=== PATIENT | female | born 1960 | race Caucasian/White ===

== ENCOUNTER 2024-01-09 09:10 | Outpatient (OUT) | payer OTHER, SELFPAY ==
--- NOTE | 2024-01-09 | XR_ITS ---
The [address] [address] Patient Name: LEVI SOFIA MRN: [id number] date: 1960 Sex: F Assigned Patient Location: Current Patient Location: Accession/Order Number: [id number] Exam Date: 01/09/2024 09:15 Report Date: 01/09/2024 10:14 At the request of: JULIO JOHNSON Procedure: XR foot LIONEL min 3V EXAMINATION: XR foot LIONEL min 3V, XR ankle LIONEL min 3V HISTORY: BILATERAL FOOT PAIN COMPARISON: 08/02/2022 FINDINGS: RIGHT FINDINGS: BONES: No acute fracture or dislocation. Severe degenerative changes with pes planus. Moderate enthesopathic spurring of the calcaneus. Marked bony remodeling of the midfoot and hindfoot. SOFT TISSUES: Negative. No visible soft tissue swelling. OTHER: Negative. LEFT FINDINGS: BONES: No acute fracture or dislocation. Stable fusion hardware with 2 screws across the posterior subtalar joint and a strut in the medial foot. Lucency in the distal tibia likely representing bone graft harvesting. Marked degenerative changes with bony remodeling. Pes planus. SOFT TISSUES: Negative. No visible soft tissue swelling. OTHER: Negative. XR/XR foot LIONEL min 3V IMPRESSION: RIGHT CONCLUSION: Stable postsurgical and degenerative changes LEFT CONCLUSION: Stable postsurgical and degenerative changes Electronically authenticated by: NIKHIL GORE Date: 01/09/2024 10:14
--- NOTE | 2024-01-09 | XR_ITS ---
[address] [address] Patient Name: LEVI SOFIA MRN: [id number] date: 1960 Sex: F Assigned Patient Location: Current Patient Location: Accession/Order Number: [id number] Exam Date: 01/09/2024 09:15 Report Date: 01/09/2024 10:14 At the request of: JULIO JOHNSON Procedure: XR ankle LIONEL min 3V EXAMINATION: XR foot LIONEL min 3V, XR ankle LIONEL min 3V HISTORY: BILATERAL FOOT PAIN COMPARISON: 08/02/2022 FINDINGS: RIGHT FINDINGS: BONES: No acute fracture or dislocation. Severe degenerative changes with pes planus. Moderate enthesopathic spurring of the calcaneus. Marked bony remodeling of the midfoot and hindfoot. SOFT TISSUES: Negative. No visible soft tissue swelling. OTHER: Negative. LEFT FINDINGS: BONES: No acute fracture or dislocation. Stable fusion hardware with 2 screws across the posterior subtalar joint and a strut in the medial foot. Lucency in the distal tibia likely representing bone graft harvesting. Marked degenerative changes with bony remodeling. Pes planus. SOFT TISSUES: Negative. No visible soft tissue swelling. OTHER: Negative. XR/XR ankle LIONEL min 3V IMPRESSION: RIGHT CONCLUSION: Stable postsurgical and degenerative changes LEFT CONCLUSION: Stable postsurgical and degenerative changes Electronically authenticated by: NIKHIL GORE Date: 01/09/2024 10:14
== END 2024-01-09 09:11 | disposition home or self-care (01) ==
LOC: EC 09:11
PROVIDERS: Visit Provider Podiatrist Foot & Ankle Surgery
DX: M25.571 Pain in right ankle and joints of right foot (principal); M25.572 Pain in left ankle and joints of left foot; M79.671 Pain in right foot; M79.672 Pain in left foot; Z98.890 Other specified postprocedural states
CPT/HCPCS: 73610; 73630

== ENCOUNTER 2024-04-09 12:57 | Outpatient (OUT) | payer OTHER, SELFPAY ==
--- NOTE | 2024-04-09 13:12 | CT_ITS ---
The [address] [address] Patient Name: LEVI SOFIA MRN: [id number] date: 1960 Sex: F Assigned Patient Location: CT Current Patient Location: Accession/Order Number: [id number] Exam Date: 04/09/2024 15:20 Report Date: 04/10/2024 16:20 At the request of: JULIO JOHNSON Procedure: CT ankle RT wo con EXAMINATION: CT ankle RT wo con HISTORY: Right Charcot Neuropathy COMPARISON: No relevant comparison available. TECHNIQUE: Multi-planar CT images were created without and/or with IV contrast according to examination type. Dose reduction techniques were achieved by using automated exposure control and/or adjustment of mA and/or kV according to patient size and/or use of iterative reconstruction technique. FINDINGS: BONES: Complete loss of joint space of the anterior compartment of the knee with [id number] articulation between the patella and femur with marked cortical irregularity and innumerable subchondral cysts. Moderate joint space narrowing of the medial compartment of the knee. Large periarticular degenerative osteophytes involving all 3 compartments. Complete loss of plantar arch. Degenerative changes the midfoot with innumerable subchondral cysts and marked joint space narrowing throughout. Mild narrowing of the ankle joint space with prominent subchondral cysts within posterior aspect of the tibial plafond, and degenerative osteophytes along the articular margins. SOFT TISSUES: Soft tissue swelling surrounding the foot and ankle. EFFUSION: None visible. OTHER: Negative. CT/CT ankle RT wo con IMPRESSION: 1. No appreciable acute bone abnormality. 2. Marked degenerative joint disease of the knee. 3. 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 Electronically authenticated by: JODI PAPPAS Date: 04/10/2024 16:20
== END 2024-04-09 12:58 | disposition home or self-care (01) ==
LOC: CT 12:58
PROVIDERS: Visit Provider Podiatrist Foot & Ankle Surgery
DX: M14.671 Charcot's joint, right ankle and foot (principal)
CPT/HCPCS: 73700

== ENCOUNTER 2024-05-22 11:08 | Outpatient (OUT) | payer OTHER, SELFPAY ==
--- NOTE | 2024-05-22 11:58 | P.GSHP_ITS ---
History of Present Illness History of Present Illness Chief complaint: charcot joint right ankle and foot Narrative: Patient presents for preadmission testing. The patient reports a long history of bilateral foot and ankle pain. She underwent left foot and ankle reconstruction in 2019 and states she is happy with her results. The patient states she does wear a brace on her right ankle but it only provides minimal support. She does take diclofenac to help with her discomfort. The patient states she is unable to stand for long periods of time and she does use a walker for ambulation. Review of Systems ROS Narrative REVIEW OF SYSTEMS: Negative except as stated in HPI, ten or more systems reviewed. Constitutional: No fever, chills, weakness ENT: No sore throat or epistaxis Cardiovascular: No chest pain or palpitations; admits to activity intolerance and pedal edema Respiratory: Chronic shortness of breath, cough, and wheezing Musculoskeletal: Chronic joint pain and swelling Gastrointestinal: No abdominal pain, constipation, diarrhea, or vomiting Genitourinary: No dysuria or hematuria Neurological: No numbness, tingling, weakness, or headache Psychiatric: No mood changes [facility] Medical History (Updated 05/22/24 @ 12:03 by Cynthia Byrd NP) Valgus deformity, not elsewhere classified, right ankle ?M21.071 - Valgus deformity, not elsewhere classified, right ankle (ICD-10) Primary osteoarthritis, right ankle and foot ?M19.071 - Primary osteoarthritis, right ankle and foot (ICD-10) Charcot's joint, left ankle and foot ?M14.672 - Charcot's joint, left ankle and foot (ICD-10) Non-pressure chronic ulcer of other part of right foot limited to breakdown of skin ?L97.511 - Non-pressure chronic ulcer of other part of right foot limited to breakdown of skin (ICD-10) Foot and ankle pain ?M79.673 - Pain in unspecified foot (ICD-10) ?M25.579 - Pain in unspecified ankle and joints of unspecified foot (ICD-10) Charcot's joint, right ankle and foot ?M14.671 - Charcot's joint, right ankle and foot (ICD-10) Neck pain ?M54.2 - Cervicalgia (ICD-10) Back pain ?M54.9 - Dorsalgia, unspecified (ICD-10) Arthritis ?M19.90 - Unspecified osteoarthritis, unspecified site (ICD-10) Anemia ?D64.9 - Anemia, unspecified (ICD-10) Depression ?F32.A - Depression, unspecified (ICD-10) COVID-19 ?U07.1 - COVID-19 (ICD-10) Pneumonia ?J18.9 - Pneumonia, unspecified organism (ICD-10) Bronchitis ?J40 - Bronchitis, not specified as acute or chronic (ICD-10) Asthma ?J45.909 - Unspecified asthma, uncomplicated (ICD-10) Vertigo ?R42 - Dizziness and giddiness (ICD-10) Migraine ?G43.909 - Migraine, unspecified, not intractable, without status migrainosus (ICD-10) Seasonal allergies ?J30.2 - Other seasonal allergic rhinitis (ICD-10) GERD (gastroesophageal reflux disease) ?K21.9 - Gastro-esophageal reflux disease without esophagitis (ICD-10) Extremity edema ?R60.0 - Localized edema (ICD-10) High cholesterol ?E78.00 - Pure hypercholesterolemia, unspecified (ICD-10) Hypertension ?I10 - Essential (primary) hypertension (ICD-10) Hypothyroidism ?E03.9 - Hypothyroidism, unspecified (ICD-10) Prediabetes ?R73.03 - Prediabetes (ICD-10) Surgical History (Updated 05/22/24 @ 11:38 by Cynthia Byrd NP) H/O elbow surgery ?Z98.890 - Other specified postprocedural states (ICD-10) History of hysterectomy ?Z90.710 - Acquired absence of both cervix and uterus (ICD-10) History of colonoscopy ?Z98.890 - Other specified postprocedural states (ICD-10) History of tonsillectomy ?Z90.89 - Acquired absence of other organs (ICD-10) History of arthroplasty of knee ?Z96.659 - Presence of unspecified artificial knee joint (ICD-10) S/P cataract extraction and insertion of intraocular lens ?Z98.49 - Cataract extraction status, unspecified eye (ICD-10) ?Z96.1 - Presence of intraocular lens (ICD-10) History of ankle surgery ?Z98.890 - Other specified postprocedural states (ICD-10) Family History (Updated 05/22/24 @ 11:38 by Cynthia Byrd NP) Other Family history of colon cancer Family history of diabetes mellitus Family history of leukemia Family history of myocardial infarction Family history of stroke Social History (Updated 05/22/24 @ 11:31 by Cynthia Byrd NP) Within the past year, how often did you have a drink containing alcohol: never Score interpretation: A score less than 3 is consistent with normal alcohol consumption. Smoking status: Never smoker Non-prescribed substance use: denies use Previous occupational history: Retired Highest level of school completed/degree received: high school graduate Meds Home Medications and Allergies Home Medications ?Medication ?Instructions ?Recorded ?Confirmed ?Type albuterol sulfate 90 mcg/actuation 2 inh inhalation Q4H PRN shortness 05/22/24 05/22/24 History aerosol inhaler of breath or wheezing aspirin 81 mg capsule 81 mg PO DAILY 05/22/24 05/22/24 History atorvastatin 20 mg tablet 20 mg PO DAILY 05/22/24 05/22/24 History citalopram 20 mg tablet 20 mg PO DAILY 05/22/24 05/22/24 History diclofenac sodium 75 mg 75 mg PO Q12H 05/22/24 05/22/24 History tablet,delayed release duloxetine 30 mg capsule,delayed 30 mg PO DAILY 05/22/24 05/22/24 History release fexofenadine 180 mg tablet 180 mg PO DAILY 05/22/24 05/22/24 History ([facility]) fluticasone furoate 100 1 inh inhalation Q24H 05/22/24 05/22/24 History mcg-vilanterol 25 mcg/dose inhalation powder (Breo Ellipta) fluticasone propionate 50 1 spray intranasal DAILY PRN 05/22/24 05/22/24 History mcg/actuation nasal allergy symptoms spray,suspension (24 Hour Allergy Relief) hydrochlorothiazide 12.5 mg capsule 12.5 mg PO DAILY 05/22/24 05/22/24 History levothyroxine 137 mcg tablet 137 mcg PO QPM 05/22/24 05/22/24 History losartan 50 mg tablet 50 mg PO BID 05/22/24 05/22/24 History montelukast 10 mg tablet 10 mg PO QPM 05/22/24 05/22/24 History omeprazole 20 mg capsule,delayed 20 mg PO DAILY 05/22/24 05/22/24 History release oxybutynin chloride 15 mg 15 mg PO DAILY 05/22/24 05/22/24 History tablet,extended release 24 hr propranolol 80 mg capsule,24 80 mg PO BID 05/22/24 05/22/24 History hr,extended release sumatriptan succinate 100 mg tablet 100 mg PO Q2H PRN migraine headache 05/22/24 05/22/24 History Allergies Allergy/AdvReac Type Severity Reaction Status Date / Time chlorzoxazone Allergy Unknown Verified 05/22/24 11:23 [From Danielle Robles DSC] moxifloxacin Allergy Hives Verified 05/22/24 11:23 Penicillins Allergy Hives Verified 05/22/24 11:23 Exam Narrative Exam Narrative: Constitutional: Awake, alert, comfortable, well-appearing, nontoxic, interactive, vital signs as charted Head: Normocephalic, atraumatic Neck: Supple, normal appearance, normal range of motion, no meningeal signs, no lymphadenopathy Respiratory: No respiratory distress, breath sounds clear Cardiovascular: Regular rate and rhythm, strong and regular heart tones Musculoskeletal: Patient ambulates with an antalgic gait utilizing a walker, right knee brace in place, right ankle brace in place, 2+ pedal edema bilaterally Skin: No rashes or induration, no lesions, only visible skin inspected Neuro: No neurological deficits, normal sensation Psychiatric: Oriented ?3, normal affect Assessment and Plan Assessment and Plan (1) Primary osteoarthritis, right ankle and foot: (2) Non-pressure chronic ulcer of other part of right foot limited to breakdown of skin: (3) Foot and ankle pain: (4) Charcot's joint, right ankle and foot: (5) Valgus deformity, not elsewhere classified, right ankle: Plan Right foot reconstruction with medial column and subtalar joint fusion with soft tissue balancing and bone graft as needed, possible hallux arthroplasty scheduled with Dr. Singh June 09, 2024.
[2024-05-22 12:07] LABS: Basophils Absolute Auto 0.1 10^3/uL (0.0-0.1); Basophils Percent Auto 0.9 % (0.2-2.0); Eosinophils Absolute Auto 0.2 10^3/uL (0.0-0.7); Eosinophils Percent Auto 2.8 % (0.9-7.0); Hematocrit 38.6 % (36.0-48.0); Hemoglobin 12.9 g/dL (12.0-16.0); Immature Granulocytes Abs Auto 0.02 10^3/uL (0.00-0.03); Immature Granulocytes Pct Auto 0.3 % (0.0-0.5); Lymphocytes Absolute Auto 1.6 10^3/uL (1.2-3.8); Mean Corpuscular HGB Conc 33.4 g/dL (29.9-35.2); Mean Corpuscular Hemoglobin 31.2 pg (26.7-34.0); Mean Corpuscular Volume 93.2 fL (81.0-99.0); Mean Platelet Volume 10.2 fL (9.5-13.5); Monocytes Absolute Auto 0.4 10^3/uL (0.3-0.8); Monocytes Percent Auto 6.4 % (1.7-12.0); Neutrophils Absolute Auto 4.2 10^3/uL (1.4-6.5); Neutrophils Percent Auto 65.6 % (43.0-75.0); Platelet Count 191 10^3/uL (150-450); Red Blood Count 4.14 10^6/uL (4.20-5.40); Red Cell Distribution Width 14.1 % (11.0-15.0); White Blood Count 6.5 10^3/uL (4.0-11.0)
[2024-05-22 12:14] LABS: Anion Gap 15.3; BUN Creatinine Ratio 27.7; Calcium 9.6 mg/dL (8.5-10.1); Carbon Dioxide 24.9 mmol/L (21.0-32.0); Chloride 103 mmol/L (98-107); Estimated GFR (African America 50 (>=60); Estimated GFR (Non-African Ame 41 (>=60); Glucose 128 mg/dL (74-106); Potassium 4.2 mmol/L (3.5-5.1); Sodium 139 mmol/L (136-145)
== END 2024-05-22 11:09 | disposition home or self-care (01) ==
PROVIDERS: Visit Provider Podiatrist Foot & Ankle Surgery
DX: Z01.812 Encounter for preprocedural laboratory examination (principal); Z01.818 Encounter for other preprocedural examination; M14.671 Charcot's joint, right ankle and foot
CPT/HCPCS: 36415; 80048; 85025; G0463

== ENCOUNTER 2024-08-13 12:34 | Outpatient (OUT) | payer OTHER, SELFPAY ==
--- OUTSIDE RECORDS SUMMARY | 2024-08-13 12:55 | XMS_ITS | CCD ---
Author Organization [facility] Care Team Providers Care Guest Attendant Name Role Phone Mara Beverly Primary Care Provider [phone] SYSTEM, PROVIDER NOT IN Attending Unavaila ble SYSTEM, PROVIDER NOT IN Referring Unavaila ble PANDA BEVERLYER R Primary Care Unavailable SYSTEM, PROVIDER NOT IN Attending Unavaila ble SYSTEM, PROVIDER NOT IN Referring Unavaila ble SIRIA CHRISTOPHER R Primary Care Unavailable Brown Christopher R Primary Care Provider [phone] Mara Beverly Primary Care Provider Senait Ochoa Unavailable EXTENCARLOS Attending Unavailable BROWN, CHRISTOPHER R Primary Care Unavailable EXTEN, CARLOS GERBER Attending Unavailable BROWN, CHRISTOPHER R Primary Care Unavailable PRYKHOJAVIER HAWTHORNE Attending U navailable BROWN, CHRISTOPHER R Primary Care Unavailable EXTEN, CARLOS GERBER Attending Unavailable BROWN, CHRISTOPHER R Primary Care Unavailable BROWN, CHRISTOPHER R Admitting Unavailable CYLINDER PRESS OPERATOR APPRENTICEJASPREET CAMPBELL Attending Unavailab le BROWN, CHRISTOPHER R Referring Unavailable BROWN, CHRISTOPHER R Primary Care Unavailable CYLINDER PRESS OPERATOR APPRENTICEJASPREET CAMPBELL Attending Unavailab le BROWN, CHRISTOPHER R Primary Care Unavailable BROWN, CHRISTOPHER R Referring Unavailable PRYKHOJAVIER HAWTHORNE Attending U navailable BROWN, CHRISTOPHER R Primary Care Unavailable BROWN, CHRISTOPHER R Referring Unavailable EXTENCARLOS Attending Unavailable BROWN, CHRISTOPHER R Primary Care Unavailable EXTENCARLOS Admitting Unavailable SENAIT OCHOA Attending Unavailable EXTENCARLOS Referring Unavailable BROWN, CHRISTOPHER R Primary Care Unavailable EXTENCARLOS Attending Unavailable BROWN, CHRISTOPHER R Primary Care Unavailable EXTEN, CARLOS GERBER Attending Unavailable EXTEN, CARLOS GERBER Referring Unavailable BROWN, CHRISTOPHER R Primary Care Unavailable EXTEN, CARLOS GERBER Attending Unavailable EXTEN, CARLOS ZABRINA Referring Unavailable BROWN, CHRISTOPHER R Primary Care Unavailable EXTEN, CARLOS GERBER Attending Unavailable EXTEN, CARLOS ZABRINA Referring Unavailable BROWN, CHRISTOPHER R Primary Care Unavailable EXTEN, CARLOS GERBER Attending Unavailable EXTEN, CARLOSARABELLA FOREMANE Referring Unavailable BROWN, CHRISTOPHER R Primary Care Unavailable EXTEN, CARLOS GERBER Attending Unavailable EXTEN, CARLOS ZABRINA Referring Unavailable BROWN, CHRISTOPHER R Primary Care Unavailable VISENAIT CALDERON Admitting Unavailable VISTSENAIT HENNING Attending Unavailable BROWN, CHRISTOPHER R Primary Care Unavailable Senait Ochoa Unavailable [phone] Mara BEVERLY Primary Care Physician Litzy Mack Unavailable Unavailable Lorna Almanzar Unavailable Unavailable JULIO JOHNSON Admitting Unavailable JULIO JOHNSON Attending Unavailable Jodi Pappas Consulting Unavailable JULIO JOHNSON Consulting Unavailable Mara BEVERLY Primary Care Physician [phone] Mara BEVERLY Admitting Unavailable Mara BEVERLY Attending Unavailable Yuniel Ocasio Attending Unavailable EMELYN POLK Attending Unavailable Mara BEVERLY Attending Unavailable Mara BEVERLY Admitting Unavailable DAVE, Zahra Consulting Unavailable Melva Grimaldo Admitting Unavailable Melva Grimaldo Attending Unavailable Melva Grimaldo Referring Unavailable DAVE, AGPCNP Zahra Consulting Unava ilable DAVE, Zahra Consulting Unavailable DAVE, Zahra Consulting Unavailable DAVE, Zahra Consulting Unavailable DAVE, Zahra Consulting Unavailable DAVE, Zahra Consulting Unavailable DAVE, Zahra Consulting Unavailable DAVE, Zahra Consulting Unavailable DAVE, Zahra Consulting Unavailable DO Yuniel Ocasio Attending Unavailable Mara BEVERLY Attending Unavailable Mara BEVERLY Referring Unavailable Farzad FRANCE Attending Unavailable Mara BEVERLY Attending Unavailable SIRIA, Christopher Attending Unavailable BROWN, Christopher Attending Unavailable BROWN, Christopher Attending Unavailable BROWN, Christopher Attending Unavailable BROWN, Christopher Attending Unavailable BROWN Christopher Admitting Unavailable WILL TURNERELLE Attending Unavailable GRIMALDO, MELVA T Referring Unavailable MEDVES, DOLORES Calixto Attending Unavailable GRIMALDO, MELVA T Referring Unavailable TURNER, BUBBA Attending Unavailable GRIMALDO, MELVA T Referring Unavailable GRIMALDO, MELVA T Referring Unavailable GRIMALDO, MELVA T Attending Unavailable MEDVES, DOLORES [place] Attending Unavailable GRIMALDO, MELVA T Referring Unavailable TURNER, BUBBA Attending Unavailable GRIMALDO, MELVA T Referring Unavailable DEPOY, DONG Attending Unavailable GRIMALDO, MEVLA T Referring Unavailable TURNER, BUBBA Attending Unavailable GRIMALDO, MELVA T Referring Unavailable DEPOY, DONG Attending Unavailable GRIMALDO, MELVA T Referring Unavailable GRIMALDO, MELVA T Referring Unavailable GRIMALDO, MELVA T Attending Unavailable GRIMALDO, MELVA T Referring Unavailable GRIMALDO, MELVA T Attending Unavailable GRIMALDO, MELVA T Referring Unavailable MEDVES, DOLORES [place] Attending Unavailable GRIMALDO, MELVA T Referring Unavailable DEPOY, DONG Attending Unavailable GRIMALDO, MELVA T Referring Unavailable TURNER, BUBBA Attending Unavailable GRIMALDO, MELVA T Referring Unavailable TURNER, BUBBA Attending Unavailable GRIMALDO, MELVA T Referring Unavailable GRIMALDO, MELVA T Referring Unavailable HAILY SHEPARD Attending Unavailable Siria ARMENTA, Mara Primary Care Provider Grimaldo, Melva T Referring Unavailable Grimaldo, Melva T Attending Unavailable SIRIA, Mara Referring Unavailable SIRIA, Mara Attending Unavailable SIRIA, Mara Referring Unavailable SIRIA, Mara Attending Unavailable SIRIA, Mara Admitting Unavailable Allergies Allergy Classification Reported Allergen(s) Allergy Type Date of Onset Reaction(s) Facility (20 sources) Amoxicillin / Clavulanate; Translations: [AMOXICILLIN-POT CLAVULANATE] Drug Allergy 3 [facility] (20 sources) Chlorzoxazone; Translations: [CHLORZOXAZONE] Drug Allergy 9 [facility] (20 sources) moxifloxacin; Translations: [MOXIFLOXACIN] Drug Allergy 9 Unknown [facility] (20 sources) Penicillins; Translations: [PENICILLINS] Propensity to adverse reactions to drug 7 [facility] (20 sources) Penicillin; Translations: [penicillin] Drug Allergy [facility] Comment on above: Tolerated ceftriaxon e during 12/2017 admission (20 sources) Penicillin V; Translations: [penicillin V potassium] Drug Allergy Unknown (qualifier value) [facility] (5 sources) Amoxicillin / Clavulanate; Translations: [Augmentin] Drug Allergy [facility] (1 source) moxifloxacin Drug Allergy [facility] (5 sources) Penicillin; Translations: [penicillin] Drug Allergy [facility] (1 source) Parafon Forte Drug allergy (disorder) [facility] (4 sources) moxifloxacin; Translations: [Avelox] Drug Allergy [facility] (4 sources) Antibiotic; Translations: [Antibiotic] Propensity to adverse reactions (disorder) [facility] (4 sources) Parafon Forte DSC; Translations: [Parafon Forte DSC] Propensity to adverse reactions (disorder) [facility] (2 sources) Chlorzoxazone Drug Allergy 9 Unknown [facility] Medications Current Medications Medication Drug Class(es) Dates Sig (Normalized) Sig (Original) [id number] 200 actuat albuterol 0.09 mg/actuat metered dose inhaler (20 sources) beta2-Adrenergic Agonist Start: 03-08-2024 take 2 puff(s) by inhalation four times daily as needed albuterol HFA 90 mcg/act inhaler INHALE 2 PUFFS FOUR TIMES DAILY NEEDED 03/08/2024 Active Start: 09-28-2022 take 2.5 mg by inhal ation every four hours for wheezing albuterol 0.083% Inh Mamie 3 mL 2.5 mg, 3 mL, Inhalation, q4hr for wheezing, 25 EA, Refill(s) 0, dx. J45.41, [id number], 179, cm, 09/27/22 13:30:00 EST, Height/Length Dosing, 130, kg, 09/27/22 13:30:00 EST, Weight Dosing Start Date: 09/28/22 Status: Ordered Start: 08-09-2022 take 1 dose by inhal ation every six hours ProAir HFA 90 mcg/inh inhalation aerosol 2 puff(s), Inhalation, q6hr for wheezing, 1 EA, Refill(s) 1, [facility], 179, cm, 06/28/22 9:21:00 EDT, Height/Length Dosing, 129, kg, 06/28/22 9:21:00 EDT, Weight Dosing Start Date: 08/09/22 Status: Ordered Start: 10-21-2021 take 30 doses by inh alation every four hours as needed albuterol 0.083% Inh Mamie 3 mL 0.083% - 3mL dosing units, Inhalation, q4hr as needed for wheezing, 30 EA, Refill(s) 0 Start Date: 10/21/21 Status: Ordered Start: 10-21-2021 take 30 doses by inh alation every four hours as needed albuterol 0.083% Inh Mamie 3 mL 0.083% - 3mL dosing units, Inhalation, q4hr as needed for wheezing, 30 EA, Refill(s) 0 Start Date: 10/21/21 Status: Ordered Start: 07-11-2021 take 2 puff(s) by in halation every six hours for wheezing ProAir HFA 90 mcg/inh inhalation aerosol 2 puff(s), Inhalation, q6hr for wheezing, 1 EA, Refill(s) 1, [facility], 178, cm, 07/11/21 10:05:00 EDT, Height/Length Dosing, 127, kg, 07/11/21 10:05:00 EDT, Weight Dosing Start Date: 07/11/21 Status: Ordered Start: 08-05-2019 take 2.5 mg by inhal ation every six hours for wheezing albuterol 0.083% Inh Mamie 3 mL 2.5 mg, 3 mL, Inhalation, q6hr for wheezing, 25 EA, Refill(s) 0, [facility] Start Date: 08/05/19 Status: Ordered Start: 08-05-2019 take 2.5 mg by inhal ation every six hours for wheezing albuterol 0.083% Inh Mamie 3 mL 2.5 mg, 3 mL, Inhalation, q6hr for wheezing, 25 EA, Refill(s) 0, [facility] Start Date: 08/05/19 Status: Ordered Albuterol (Eqv-ProAir HFA) 90 mcg/inh inhalation aerosol (8 sources) Start: 2024 take 2 puff(s) by inhalation every six hours Albuterol (Eqv-ProAir HFA) 90 mcg/inh inhalation aerosol 2 puff(s), Inhalation, q6hr, 8 gm, Refill(s) 5, other reason (Rx) Start Date: 03/09/24 Status: Ordered albuterol 0.833 mg/ml / ipratropium bromide 0.167 mg/ml inhalation solution (10 sources) Anticholinergi c, beta2-Adrenerg ic Agonist Start: 03-10-2024 take 3 mL by inhalation four times daily DuoNeb 2.5 mg-0.5 mg/3 mL Soln-Inh 3 mL, Inhalation, QID, 60 EA, Refill(s) 2, 177, cm, 03/10/24 18:16:00 EDT, Height/Length Dosing, 128.6, kg, 03/10/24 18:16:00 EDT, Weight Dosing Start Date: 03/10/24 Status: Ordered ipratropium-albu terol (Duo-Neb) 0.5-2.5 mg/3 mL nebulizer solution Active aspirin 325 mg oral tablet (20 sources) Platelet Aggregation Inhibitor, Nonsteroidal Anti-inflammatory Drug Start: 05-16-2023 End: 06-16-2023 take 1 tablet by mouth once daily aspirin 325 mg Tab 325 mg = 1 tab(s), Oral, Daily, X 30 day(s), # 30 tab(s), Refills(s) 0, Pharmacy: [id number], 177, cm, 05/16/23 13:32:00 EDT, Height/Length Dosing, 127, kg, 05/16/23 13:31:00 EDT, Weight Dosing Start Date: 05/17/23 Stop Date: 06/16/23 Status: Ordered Start: 01-15-2018 take 1 tablet by mouth once da arabella aspirin 81 mg Oral EC Tab 81 mg = 1 tab(s), Oral, Daily, Blood Thinner Start Date: 01/15/18 Status: Ordered Start: 01-15-2018 take 1 tablet by mouth once da arabella aspirin 81 mg Oral EC Tab 81 mg = 1 tab(s), Oral, Daily, Blood Thinner Start Date: 01/15/18 Status: Ordered atorvastatin 20 mg oral tablet (20 sources) HMG-CoA Reductase Inhibitor Start: 04-07-2024 take 1 tablet by mouth once daily at bedtime atorvastatin 20 mg Tab 20 mg = 1 tab(s), Oral, Once a day (at bedtime), # 90 tab(s), Refills(s) 1, Pharmacy: [id number], 177, cm, 03/24/24 22:52:00 EDT, Height/Length Dosing, 128, kg, 03/24/24 22:52:00 EDT, Weight Dosing Start Date: 04/07/24 Status: Ordered Start: 11-15-2023 take 1 tablet by brendan th once daily at bedtime atorvastatin 20 mg Tab 20 mg = 1 tab(s), Oral, Once a day (at bedtime), # 90 tab(s), Refills(s) 1, Pharmacy: [facility], 178, cm, 10/17/23 14:51:00 EST, Height/Length Dosing, 127, kg, 10/17/23 14:51:00 EST, Weight Dosing Start Date: 11/15/23 Status: Ordered Start: 04-27-2023 take 1 tablet by brendan once daily at bedtime atorvastatin 20 mg Tab 20 mg = 1 tab(s), Oral, Once a day (at bedtime), # 90 tab(s), Refills(s) 1, Pharmacy: [facility], 177, cm, 05/16/23 13:32:00 EDT, Height/Length Dosing, 127, kg, 05/16/23 13:31:00 EDT, Weight Dosing Start Date: 08/21/23 Status: Ordered Start: 01-12-2023 take 1 tablet by brendan th once daily at bedtime atorvastatin 20 mg Tab 20 mg = 1 tab(s), Oral, Once a day (at bedtime), # 90 tab(s), Refills(s) 1, Pharmacy: [facility], 179, cm, 09/27/22 13:30:00 EST, Height/Length Dosing, 130, kg, 09/27/22 13:30:00 EST, Weight Dosing Start Date: 01/12/23 Status: Ordered Start: 08-03-2022 take 1 tablet by brendan th once daily at bedtime atorvastatin 20 mg Tab 20 mg = 1 tab(s), Oral, Once a day (at bedtime), # 90 tab(s), Refills(s) 1, Pharmacy: [facility], 179, cm, 06/28/22 9:21:00 EDT, Height/Length Dosing, 129, kg, 06/28/22 9:21:00 EDT, Weight Dosing Start Date: 08/03/22 Status: Ordered Start: 01-25-2022 take 1 tablet by brendan th once daily at bedtime atorvastatin 20 mg Tab 20 mg = 1 tab(s), Oral, Once a day (at bedtime), # 90 tab(s), Refills(s) 1, Pharmacy: [id number], 178, cm, 12/22/21 10:58:00 EST, Height/Length Dosing, 127.4, kg, 12/22/21 10:58:00 EST, Weight Dosing Start Date: 01/25/22 Status: Ordered take 1 tablet by brendan once daily atorvastatin (LIPITOR) 10 MG tablet Take 10 mg by mouth daily . 0 Active azithromycin 250 mg Tab 5-day Dose Pack (Z-Judah) (1 source) Start: 03-10-2024 End: 03-15-2024 azithromycin 250 mg Tab 5-day Dose Pack (Z-Judah) 250 mg = 1 tab(s), Oral, As Directed, as directed on package labeling, X 5 day(s), # 6 tab(s), Refills(s) 0, Pharmacy: [id number], 177, cm, 03/10/24 18:16:00 EDT, Height/Length Dosing, 128.6, kg, 03/10/24 18:16:00 EDT, Weight Dosing Start Date: 03/10/24 Stop Date: 03/15/24 Status: Ordered benzonatate 200 mg oral capsule (4 sources) Non-narcotic Antitussive Start: 03-21-2024 End: 03-31-2024 take 1 capsule by mouth three times daily benzonatate (Tessalon) 200 MG capsule TAKE 1 CAPSULE BY MOUTH THREE TIMES DAILY for 10 days 03/21/2024 Active bisoprolol fumarate 5 mg / hydroCHLOROthiazide 6.25 mg oral tablet (20 sources) Thiazide Diuretic, beta-Adrenergic Miki Start: 01-25-2022 take 1 tablet by mouth once daily bisoprolol-hydroch lorothiazide 5 mg-6.25 mg Tab 1 tab(s), Oral, Daily, 90 tab(s), Refill(s) 1, [id number], 178, cm, 12/22/21 10:58:00 EST, Height/Length Dosing, 127.4, kg, 12/22/21 10:58:00 EST, Weight Dosing Start Date: 01/25/22 Status: Ordered take 1 tablet by brendan once daily bisoprolol-hydrochlorothiazide (ZIAC) 5- 6.25 mg per tablet Take 1 tablet by mouth daily . 0 Active brompheniramine maleate 0.4 mg/ml / dextromethorphan hydrobromide 2 mg/ml / pseudoephedrine hydrochloride 6 mg/ml oral solution (6 sources) alpha-Adrenergic Agonist, Uncompetitive L-ainbyx-Q-aspartate Receptor Antagonist, Sigma-1 Agonist Start: 03-25-2024 take 5 mL by mouth four times daily for cough and congestion Bromfed DM oral syrup 5 mL, Oral, QID for cough and congestion, 200 mL, Refill(s) 0, [facility], 177, cm, 03/24/24 22:52:00 EDT, Height/Length Dosing, 128, kg, 03/24/24 22:52:00 EDT, Weight Dosing Start Date: 03/25/24 Status: Ordered 60 actuat budesonide 0.16 mg/actuat / formoterol fumarate 0.0045 mg/actuat metered dose inhaler (5 sources) Corticosteroid, beta2-Adrenergic Agonist Start: 07-09-2020 Symbicort 160-4.5 mcg/actuation inhaler as needed . 0 07/09/2020 Active take 2 puff(s) by in halation in the morning Symbicort 160-4.5 MCG/ACT inhaler Inhale 2 puffs in the morning and 2 puffs before bedtime. Active cefdinir 300 mg oral capsule (1 source) Cephalosporin Antibacterial Start: 03-24-2024 End: 04-03-2024 take 1 capsule by mouth twice daily cefdinir 300 mg Cap 300 mg = 1 cap(s), Oral, BID, X 10 day(s), # 20 cap(s), Refills(s) 0, Pharmacy: [facility], 177, cm, 03/21/24 14:44:00 EDT, Height/Length Dosing, 128.6, kg, 03/21/24 14:47:00 EDT, Weight Dosing Start Date: 03/24/24 Stop Date: 04/03/24 Status: Ordered cetirizine hydrochloride 5 mg oral tablet (20 sources) Histamine-1 Receptor Antagonist take 1 tablet by mouth once daily cetirizine (ZYRTEC) 5 MG tablet Take 5 mg by mouth daily . 0 Active citalopram 20 mg oral tablet (20 sources) Serotonin Reuptake Inhibitor Start: 05-01-2024 take 1 tablet by mouth once daily citalopram 20 mg Tab 20 mg = 1 tab(s), Oral, Daily, # 90 tab(s), Refills(s) 3, Pharmacy: [facility], 177, cm, 04/08/24 13:20:00 EDT, Height/Length Dosing, 125.7, kg, 04/08/24 13:18:00 EDT, Weight Dosing Start Date: 05/01/24 Status: Ordered Start: 11-23-2023 take 1 tablet by brendan once daily citalopram 20 mg Tab 20 mg = 1 tab(s), Oral, Daily, # 90 tab(s), Refills(s) 1, Pharmacy: [facility], 178, cm, 10/17/23 14:51:00 EST, Height/Length Dosing, 127, kg, 10/17/23 14:51:00 EST, Weight Dosing Start Date: 11/23/23 Status: Ordered Start: 04-23-2023 take 1 tablet by brendan once daily citalopram 20 mg Tab 20 mg = 1 tab(s), Oral, Daily, # 90 tab(s), Refills(s) 1, Pharmacy: [facility], 177, cm, 03/23/23 10:36:00 EDT, Height/Length Dosing, 132, kg, 03/23/23 10:36:00 EDT, Weight Dosing Start Date: 04/23/23 Status: Ordered Start: 10-09-2022 take 1 tablet by brendan once daily citalopram 20 mg Tab 20 mg = 1 tab(s), Oral, Daily, # 90 tab(s), Refills(s) 1, Pharmacy: [facility], 179, cm, 09/27/22 13:30:00 EST, Height/Length Dosing, 130, kg, 09/27/22 13:30:00 EST, Weight Dosing Start Date: 10/09/22 Status: Ordered Start: 10-13-2021 take 1 tablet by brendan th once daily citalopram 20 mg Tab 20 mg = 1 tab(s), Oral, Daily, # 90 tab(s), Refills(s) 1, Pharmacy: [id number], 178, cm, 03/14/22 10:26:00 EDT, Height/Length Dosing, 126.9, kg, 03/14/22 10:26:00 EDT, Weight Dosing Start Date: 03/27/22 Status: Ordered clindamycin 300 mg oral capsule (3 sources) Lincosamide Antibacterial Start: 04-02-2024 End: 04-12-2024 take 1 capsule by mouth every six hours clindamycin 300 mg oral cap 300 mg = 1 cap(s), Oral, q6hr, X 10 day(s), # 40 cap(s), Refills(s) 0, Pharmacy: [facility] #[id number], 177, cm, 03/24/24 22:52:00 EDT, Height/Length Dosing, 128, kg, 03/24/24 22:52:00 EDT, Weight Dosing Start Date: 04/02/24 Stop Date: 04/12/24 Status: Ordered Start: 02-19-2024 clindamycin (C leocin) 300 MG capsule Indications: Presence of left artificial knee joint Take two caps one hour prior to appointment 2 capsule 2 02/19/2024 Active Nino Med (10 sources) Start: 07-02-2020 take 750 mg by mouth once daily for pain Nino Med Nino Med, 750 mg, Oral, Daily, for pain Start Date: 07/02/20 Status: Ordered Daily Multiple Vitamins (20 sources) Start: 07-30-2012 take 1 tablet by mouth once daily Daily Multiple Vitamins 1 tab(s), Oral, Daily, Prophylaxis Start Date: 07/30/12 Status: Ordered diclofenac sodium 75 mg delayed release oral tablet (16 sources) Nonsteroidal Anti-inflammatory Drug Start: 11-29-2022 take 1 tablet by mouth twice daily diclofenac sodium 75 mg Oral EC Tab 75 mg = 1 tab(s), Oral, BID, # 180 tab(s), Refills(s) 3, Pharmacy: [facility], 177, cm, 12/10/23 18:47:00 EST, Height/Length Dosing, 124, kg, 12/10/23 18:47:00 EST, Weight Dosing Start Date: 12/25/23 Status: Ordered docusate sodium 100 mg oral capsule (15 sources) Start: 03-29-2023 take 1 capsule by mouth twice daily Colace 100 mg Cap 100 mg = 1 cap(s), Oral, BID, # 20 cap(s), Refills(s) 0, Pharmacy: [facility], 177, cm, 05/16/23 13:32:00 EDT, Height/Length Dosing, 127, kg, 05/16/23 13:31:00 EDT, Weight Dosing Start Date: 05/16/23 Status: Ordered doxycycline hyclate 100 mg oral capsule (3 sources) Tetracycline-class Drug Start: 10-17-2023 take 1 capsule by mouth twice daily doxycycline hyclate 100 mg Cap 100 mg = 1 cap(s), Oral, BID, # 20 cap(s), Refills(s) 0, Pharmacy: [facility], 178, cm, 10/17/23 14:51:00 EST, Height/Length Dosing, 127, kg, 10/17/23 14:51:00 EST, Weight Dosing Start Date: 10/17/23 Status: Ordered Start: 01-19-2023 End: 01-26-2023 take 1 capsule by mouth twice daily doxycycline hyclate 100 mg Cap 100 mg = 1 cap(s), Oral, BID, X 7 day(s), # 14 cap(s), Refills(s) 0, Pharmacy: [facility], 179, cm, 01/19/23 16:50:00 EDT, Height/Length Dosing, 133.5, kg, 01/19/23 16:50:00 EDT, Weight Dosing Start Date: 01/19/23 Stop Date: 01/26/23 Status: Ordered Start: 08-12-2022 End: 08-19-2022 take 1 capsule by mouth twice daily doxycycline hyclate 100 mg Cap 100 mg = 1 cap(s), Oral, BID, X 7 day(s), # 14 cap(s), Refills(s) 0 Start Date: 08/12/22 Stop Date: 08/19/22 Status: Ordered DULoxetine 30 mg delayed release oral capsule (20 sources) Serotonin and Norepinephrine Reuptake Inhibitor Start: 07-25-2022 End: 10-15-2029 take 1 capsule by mouth once daily duloxetine 30 mg oral delayed release capsule 30 mg = 1 cap(s), Oral, Daily, # 90 cap(s), Refills(s) 3, Pharmacy: [facility], 177, cm, 12/10/23 18:47:00 EST, Height/Length Dosing, 124, kg, 12/10/23 18:47:00 EST, Weight Dosing Start Date: 02/13/24 Status: Ordered DULoxetine 30 mg Cap-EC (1 source) Start: 01-25-2022 take 1 capsule by mouth once daily DULoxetine 30 mg Cap-EC 30 mg = 1 cap(s), Oral, Daily, # 90 cap(s), Refills(s) 1, Pharmacy: [facility] #[id number], 178, cm, 12/22/21 10:58:00 EST, Height/Length Dosing, 127.4, kg, 12/22/21 10:58:00 EST, Weight Dosing Start Date: 01/25/22 Status: Ordered 168 hr estradiol 0.07116 mg/hr transdermal system (20 sources) Estrogen estradiol (CLIMARA) 0.05 mg/[address] 1 patch on the skin once a week . 0 Active Extra Strength Tylenol Aches and Strains (13 sources) Start: 08-21-2019 Extra Strength Tylenol Aches and Strains See Instructions, Refill(s) 0, 1 tab q6 hrs, Pain - Moderate Start Date: 08/21/19 Status: Ordered fexofenadine hydrochloride 180 mg oral tablet (20 sources) Histamine-1 Receptor Antagonist Start: 2020 End: 07-16-2020 take 1 tablet by mouth once daily Carla 24 Hour Allergy oral tablet 180 mg = 1 tab(s), Oral, Daily, # 30 tab(s), Refills(s) 0, Sinus symptoms Start Date: 04/13/20 Status: Ordered fluticasone furoate 0.0275 mg/actuat metered dose nasal spray (20 sources) Corticosteroid take 2 spray(s) nasal route once daily fluticasone (VERAMYST) 27.5 mcg/actuation nasal spray Instill 2 sprays into each nostril daily . 0 Active fluticasone / vilanterol (12 sources) Corticosteroid, beta2-Adrenergic Agonist Start: 10-12-2023 take 1 puff(s) by inhalation once daily Breo Ellipta 100 mcg-25 mcg inhalation powder 1 puff(s), Inhalation, Daily, 1 EA, Refill(s) 11, 30 dose unit, [facility], 177, cm, 05/16/23 13:32:00 EDT, Height/Length Dosing, 127, kg, 05/16/23 13:31:00 EDT, Weight Dosing Start Date: 10/12/23 Status: Ordered Breo Ellipta 100 -25 MCG/ACT aerosol powder Active hydroCHLOROthiazide 12.5 mg oral capsule (20 sources) Thiazide Diuretic Start: 08-22-2022 End: 08-17-2023 hydroCHLOROthiazide (Microzide) 12.5 MG capsule 05/01/2023 Active levothyroxine sodium 0.137 mg oral tablet (20 sources) l-Thyroxine Start: 08-28-2023 take 1 tablet by mouth in the morning levothyroxine (Synthroid, Levoxyl) 137 MCG tablet Take 137 mcg by mouth in the morning. 08/28/2023 Active Start: 07-25-2022 End: 10-19-2035 take 1 tablet by mouth once daily levothyroxine 137 mcg (0.137 mg) Tab 137 microgram = 1 tab(s), Oral, Daily, # 90 tab(s), Refills(s) 1, Pharmacy: [facility], 177, cm, 12/10/23 18:47:00 EST, Height/Length Dosing, 124, kg, 12/10/23 18:47:00 EST, Weight Dosing Start Date: 01/22/24 Stop Date: 01/21/26 Status: Ordered Start: 01-25-2022 take 1 tablet by brendan th once daily levothyroxine 137 mcg (0.137 mg) Tab 137 microgram = 1 tab(s), Oral, Daily, # 90 tab(s), Refills(s) 1, Pharmacy: [facility][id number], 178, cm, 12/22/21 10:58:00 EST, Height/Length Dosing, 127.4, kg, 12/22/21 10:58:00 EST, Weight Dosing Start Date: 01/25/22 Status: Ordered take 1 tablet by brendan once daily levothyroxine (LEVO-T) 137 MCG tablet Take 137 mcg by mouth once daily . 0 Active losartan potassium 50 mg oral tablet (20 sources) Angiotensin 2 Receptor Miki Start: 05-12-2024 take 1 tablet by mouth twice daily losartan 50 mg Tab 50 mg = 1 tab(s), Oral, BID, # 180 tab(s), Refills(s) 4, Pharmacy: [facility], 177, cm, 04/08/24 13:20:00 EDT, Height/Length Dosing, 125.7, kg, 04/08/24 13:18:00 EDT, Weight Dosing Start Date: 05/12/24 Status: Ordered Start: 01-11-2024 take 1 tablet by [facility] twice daily losartan 50 mg Tab 50 mg = 1 tab(s), Oral, BID, # 180 tab(s), Refills(s) 1, Pharmacy: [id number], 177, cm, 12/10/23 18:47:00 EST, Height/Length Dosing, 124, kg, 12/10/23 18:47:00 EST, Weight Dosing Start Date: 01/11/24 Status: Ordered Start: 04-27-2023 take 1 tablet by [facility] twice daily losartan 50 mg Tab 50 mg = 1 tab(s), Oral, BID, # 180 tab(s), Refills(s) 1, Pharmacy: [id number], 178, cm, 10/17/23 14:51:00 EST, Height/Length Dosing, 127, kg, 10/17/23 14:51:00 EST, Weight Dosing Start Date: 11/23/23 Status: Ordered Start: 08-17-2022 take 1 tablet by [facility] twice daily losartan 50 mg Tab 50 mg = 1 tab(s), Oral, BID, # 180 tab(s), Refills(s) 3, Pharmacy: [id number], 179, cm, 08/12/22 12:43:00 EDT, Height/Length Dosing, 129, kg, 08/12/22 12:43:00 EDT, Weight Dosing Start Date: 08/17/22 Status: Ordered Start: 08-07-2022 take 1 tablet by brendan twice daily losartan 50 mg Tab 50 mg = 1 tab(s), Oral, BID, # 60 tab(s), Refills(s) 5, Pharmacy: [facility] #[id number], 179, cm, 06/28/22 9:21:00 EDT, Height/Length Dosing, 129, kg, 06/28/22 9:21:00 EDT, Weight Dosing Start Date: 08/07/22 Status: Ordered Start: 07-19-2022 take 1 tablet by [facility] once daily losartan 50 mg Tab 50 mg = 1 tab(s), Oral, Daily, # 30 tab(s), Refills(s) 5, Pharmacy: [facility] #[id number], 179, cm, 06/28/22 9:21:00 EDT, Height/Length Dosing, 129, kg, 06/28/22 9:21:00 EDT, Weight Dosing Start Date: 07/19/22 Status: Ordered Start: 06-28-2022 take 1 tablet by [facility] once daily losartan 25 mg Tab 25 mg = 1 tab(s), Oral, Daily, # 30 tab(s), Refills(s) 5, Pharmacy: [id number], 179, cm, 06/28/22 9:21:00 EDT, Height/Length Dosing, 129, kg, 06/28/22 9:21:00 EDT, Weight Dosing Start Date: 06/28/22 Status: Ordered methylPREDNISolone 4 mg oral tablet (3 sources) Corticosteroid Start: 03-18-2024 End: 03-24-2024 Medrol Dosepack 4 mg Tab = 1 packet(s), Oral, As Directed, as directed on package labeling, X 6 day(s), # 21 tab(s), Refills(s) 0, Pharmacy: [id number], 177, cm, 03/10/24 18:16:00 EDT, Height/Length Dosing, 128.6, kg, 03/10/24 18:16:00 EDT, Weight Dosing Start Date: 03/18/24 Stop Date: 03/24/24 Status: Ordered methylPREDNISolo ne (Medrol Dospak) 4 MG tablets Active montelukast 10 mg oral tablet (20 sources) Leukotriene Receptor Antagonist Start: 07-25-2022 End: 10-19-2035 take 1 tablet by mouth in the evening montelukast (Singulair) 10 MG tablet Take 10 mg by mouth in the evening. 08/28/2023 Active Start: 01-25-2022 take 1 tablet by brendan th once daily in the evening montelukast 10 mg Tab 10 mg = 1 tab(s), Oral, qPM, # 90 tab(s), Refills(s) 1, Pharmacy: [facility] #[id number], 178, cm, 12/22/21 10:58:00 EST, Height/Length Dosing, 127.4, kg, 12/22/21 10:58:00 EST, Weight Dosing Start Date: 01/25/22 Status: Ordered take 1 tablet by brendan th once daily montelukast (SINGULAIR) 10 mg tablet Take 10 mg by mouth nightly . 0 Active multivitamin (THERAGRAN) per tablet (20 sources) take 1 tablet by mouth once daily multivitamin (THERAGRAN) per tablet Take 1 tablet by mouth daily . 0 Active mupirocin 20 mg/ml topical cream (20 sources) RNA Synthetase Inhibitor Antibacterial Start: 04-11-20 20 mupirocin Top 2% Crm 1 [place], Topical, TID, 15 gram, Refill(s) 0, called to pharmacy (Rx), 178, cm, 04/01/20 8:24:00 EDT, Height/Length Measured, 126, kg, 04/01/20 8:31:00 EDT, Weight Measured Start Date: 04/11/20 Status: Ordered Start: 04-11-2020 mupirocin Top 2% Crm 1 [place], Topical, TID, 15 gram, Refill(s) 0, called to pharmacy (Rx), 178, cm, 04/01/20 8:24:00 EDT, Height/Length Measured, 126, kg, 04/01/20 8:31:00 EDT, Weight Measured Start Date: 04/11/20 Status: Ordered Nebulizer Machine (14 sources) Start: 09-28-2022 Nebulizer Mach ine Nebulizer Machine, See Instructions, 1 EA, 0, use with medication for inhalaiton dx.J45.41, [facility], Supply, 179, cm, 09/27/22 13:30:00 EST, Height/Length Dosing, 130, kg, 09/27/22 13:30:00 EST, Weight Dosing Start Date: 09/28/22 Status: Ordered Nebulizer machine tubing/ kit (14 sources) Start: 09-28-2022 Nebulizer mach ine tubing/ kit Nebulizer machine tubing/ kit, See Instructions, 1 EA, 0, use with nebulizer medication dx. J45.41, [facility], Supply, 179, cm, 09/27/22 13:30:00 EST, Height/Length Dosing, 130, kg, 09/27/22 13:30:00 EST, Weight Dosing Start Date: 09/28/22 Status: Ordered omeprazole 20 mg delayed release oral capsule (20 sources) Proton Pump Inhibitor Start: 12-20-2022 take 1 capsule by mouth in the morning omeprazole (PriLOSEC) [address] capsule Take 20 mg by mouth in the morning. 08/28/2023 Active Start: 07-13-2022 take 1 capsule by [facility] once daily omeprazole 20 mg Cap-DR 20 mg = 1 cap(s), Oral, Daily, # 90 cap(s), Refills(s) 1, Pharmacy: [facility], 179, cm, 06/28/22 9:21:00 EDT, Height/Length Dosing, 129, kg, 06/28/22 9:21:00 EDT, Weight Dosing Start Date: 07/13/22 Status: Ordered Start: 03-27-2022 take 1 capsule by [facility] once daily omeprazole 20 mg Cap-DR 20 mg = 1 cap(s), Oral, Daily, # 90 cap(s), Refills(s) 1, Pharmacy: [facility] #[id number], 178, cm, 03/14/22 10:26:00 EDT, Height/Length Dosing, 126.9, kg, 03/14/22 10:26:00 EDT, Weight Dosing Start Date: 03/27/22 Status: Ordered take 1 capsule by [facility] once daily omeprazole (PRILOSEC) 20 MG capsule Take 20 mg by mouth daily . 0 Active omeprazole 20 mg Cap-DR (2 sources) Start: 10-13-2021 take 1 capsule by mouth once daily omeprazole 20 mg Cap-DR 20 mg = 1 cap(s), Oral, Daily, # 90 cap(s), Refills(s) 1, [id number], 178, cm, 09/13/21 10:38:00 EST, Height/Length Dosing, 130.6, kg, 09/13/21 10:28:00 EST, Weight Dosing Start Date: 10/13/21 Status: Ordered 24 hr oxybutynin chloride 15 mg extended release oral tablet (20 sources) Cholinergic Muscarinic Antagonist Start: 10-10-2023 take 1 tablet by mouth once daily oxybutynin 15 mg ER Tab 15 mg = 1 tab(s), Oral, Daily, # 90 tab(s), Refills(s) 1, Pharmacy: [facility], 177, cm, 05/16/23 13:32:00 EDT, Height/Length Dosing, 127, kg, 05/16/23 13:31:00 EDT, Weight Dosing Start Date: 10/10/23 Status: Ordered Start: 05-01-2023 oxybutynin XL (Ditropan-XL) 15 MG 24 hr tablet 05/01/2023 Active Start: 12-20-2022 [facility] 15 mg ER Tab 15 mg = 1 tab(s), Oral, Daily, # 90 tab(s), Refills(s) 1, Pharmacy: [facility], 179, cm, 09/27/22 13:30:00 EST, Height/Length Dosing, 130, kg, 09/27/22 13:30:00 EST, Weight Dosing Start Date: 12/20/22 Status: Ordered Start: 04-17-2022 take 1 tablet by brendan once daily oxybutynin 15 mg ER Tab 15 mg = 1 tab(s), Oral, Daily, # 90 tab(s), Refills(s) 1, Pharmacy: [facility] #[id number], 178, cm, 03/14/22 10:26:00 EDT, Height/Length Dosing, 126.9, kg, 03/14/22 10:26:00 EDT, Weight Dosing Start Date: 04/17/22 Status: Ordered Start: 01-11-2022 take 1 tablet by b[facility] once daily oxybutynin 15 mg ER Tab 15 mg = 1 tab(s), Oral, Daily, # 90 tab(s), Refills(s) 1, Pharmacy: [facility] #[id number], 178, cm, 12/22/21 10:58:00 EST, Height/Length Dosing, 127.4, kg, 12/22/21 10:58:00 EST, Weight Dosing Start Date: 01/11/22 Status: Ordered take 1 tablet by b[facility] once daily oxybutynin (DITROPAN) 5 MG tablet Take 5 mg by mouth daily . 0 Active take 1 tablet by [facility] three times daily oxybutynin (DITROPAN) 5 MG tablet Take 5 mg by mouth 3 (three) times a day . 0 Active pantoprazole 40 mg delayed release oral tablet (1 source) Proton Pump Inhibitor Start: 06-23-2022 take 1 tablet by mouth once daily pantoprazole 40 mg Oral EC Tab 40 mg = 1 tab(s), Oral, Daily, # 90 tab(s), Refills(s) 1, Pharmacy: [facility], 179, cm, 05/18/22 15:39:00 EDT, Height/Length Dosing, 129, kg, 05/18/22 15:39:00 EDT, Weight Dosing Start Date: 06/23/22 Status: Ordered permethrin 50 mg/ml topical cream (7 sources) Pyrethroid Start: 04-08-2024 permethrin (Elimite) 5 % cream apply topically once as directed 04/08/2024 Active Start: 04-08-2024 permethrin Top 5% Crm 1 [place], Topical, Once, 60 gram, Refill(s) 0, [facility], 177, cm, 04/08/24 13:20:00 EDT, Height/Length Dosing, 125.7, kg, 04/08/24 13:18:00 EDT, Weight Dosing Start Date: 04/08/24 Status: Ordered predniSONE 20 mg oral tablet (3 sources) Start: 03-07-2024 End: 03-14-2024 take 2 tablets by mouth once daily predniSONE 20 mg Tab 40 mg = 2 tab(s), Oral, Daily, X 7 day(s), # 14 tab(s), Refills(s) 0, Pharmacy: [facility], 177, cm, 12/10/23 18:47:00 EST, Height/Length Dosing, 124, kg, 12/10/23 18:47:00 EST, Weight Dosing Start Date: 03/07/24 Stop Date: 03/14/24 Status: Ordered Start: 08-12-2022 End: 08-23-2022 take 2 tablets by mouth once daily, then take 1 tablet by mouth once daily predniSONE 20 mg Tab See Instructions, take 2 tabs po daily x 4 days, then take 1 tab po daily x 4 days, # 12 tab(s), Refills(s) 0, Pharmacy: [facility], 179, cm, 08/12/22 12:43:00 EDT, Height/Length Dosing, 129, kg, 08/12/22 12:43:00 EDT, Weight Dosing Start Date: 08/12/22 Stop Date: 08/23/22 Status: Ordered pregabalin 75 mg oral capsule (11 sources) take 1 capsule by mouth twice daily pregabalin (LYRICA) 75 MG capsule Take 75 mg by mouth 2 (two) times a day . 0 Active 24 hr propranolol hydrochloride 80 mg extended release oral capsule (20 sources) beta-Adrenergic Miki Start: take 1 capsule by mouth twice daily propranolol 80 mg Cap-ER 80 mg = 1 cap(s), Oral, BID, # 180 cap(s), Refills(s) 1, Pharmacy: [facility], 177, cm, 12/10/23 18:47:00 EST, Height/Length Dosing, 124, kg, 12/10/23 18:47:00 EST, Weight Dosing Start Date: 12/31/23 Status: Ordered Start: 06-18-2023 take 1 capsule by [facility] twice daily propranolol 80 mg Cap-ER 80 mg = 1 cap(s), Oral, BID, # 180 cap(s), Refills(s) 1, Pharmacy: [facility], 177, cm, 05/16/23 13:32:00 EDT, Height/Length Dosing, 127, kg, 05/16/23 13:31:00 EDT, Weight Dosing Start Date: 06/18/23 Status: Ordered Start: 05-01-2023 propranolol LA (Inderal LA) 80 MG 24 hr capsule 05/01/2023 Active Start: 12-20-2022 take 1 capsule by [facility] twice daily propranolol 80 mg Cap-ER 80 mg = 1 cap(s), Oral, BID, # 180 cap(s), Refills(s) 1, Pharmacy: [facility], 179, cm, 09/27/22 13:30:00 EST, Height/Length Dosing, 130, kg, 09/27/22 13:30:00 EST, Weight Dosing Start Date: 12/20/22 Status: Ordered Start: 07-13-2022 take 1 capsule by [facility] twice daily propranolol 80 mg Cap-ER 80 mg = 1 cap(s), Oral, BID, # 60 cap(s), Refills(s) 5, Pharmacy: [facility], 179, cm, 06/28/22 9:21:00 EDT, Height/Length Dosing, 129, kg, 06/28/22 9:21:00 EDT, Weight Dosing Start Date: 07/13/22 Status: Ordered Start: 04-11-2022 take 1 capsule by [facility] twice daily propranolol 80 mg Cap-ER 80 mg = 1 cap(s), Oral, BID, # 180 cap(s), Refills(s) 1, Pharmacy: [facility] #[id number], 178, cm, 03/14/22 10:26:00 EDT, Height/Length Dosing, 126.9, kg, 03/14/22 10:26:00 EDT, Weight Dosing Start Date: 04/11/22 Status: Ordered Start: 04-11-2022 take 1 capsule by [facility] once daily propranolol 80 mg Cap-ER 80 mg = 1 cap(s), Oral, Daily, # 90 cap(s), Refills(s) 1, Pharmacy: [facility] #[id number], 178, cm, 03/14/22 10:26:00 EDT, Height/Length Dosing, 126.9, kg, 03/14/22 10:26:00 EDT, Weight Dosing Start Date: 04/11/22 Status: Ordered sulfamethoxazole 800 mg / trimethoprim 160 mg oral tablet (5 sources) Dihydrofolate Reductase Inhibitor Antibacterial, Sulfonamide Antimicrobial Start: 05-16-2023 End: 05-31-2023 Bactrim D.S. 800 mg-160 mg Tab 1 tab(s), Oral, BID for 14 day(s), 28 tab(s), Refill(s) 0, [facility], 177, cm, 05/16/23 13:32:00 EDT, Height/Length Dosing, 127, kg, 05/16/23 13:31:00 EDT, Weight Dosing Start Date: 05/17/23 Stop Date: 05/31/23 Status: Ordered Start: 07-06-2020 sulfamethoxazo le-trimethoprim (BACTRIM DS,SEPTRA DS) 800-160 mg per tablet 2 (two) times a day . 0 07/06/2020 Active SUMAtriptan 100 mg oral tablet (19 sources) Serotonin-1b and Serotonin-1d Receptor Agonist Start: 12-10-2023 take 1 tablet by mouth every hour as needed for headache SUMAtriptan 100 mg Tab 100 mg = 1 tab(s), Oral, As Directed, PRN Migraine headache, Take at onset of migraine. May repeat dose in 1 hour if no relief, # 9 tab(s), Refills(s) 3, Pharmacy: [facility], 177, cm, 12/10/23 18:47:00 EST, Height/Length Dosing, 124, kg, 12/10/23 18:47:00 EST, Weight Dosing Start Date: 12/10/23 Status: Ordered Start: 02-06-2023 take 1 tablet by brendan th every hour as needed for headache SUMAtriptan 100 mg Tab 100 mg = 1 tab(s), Oral, As Directed, PRN Migraine headache, Take at onset of migraine. May repeat dose in 1 hour if no relief, # 9 tab(s), Refills(s) 0, Pharmacy: [facility], 179, cm, 01/19/23 16:50:00 EDT, Height/Length Dosing, 133.5, kg, 01/19/23 16:50:00 EDT, Weight Dosing Start Date: 02/06/23 Status: Ordered Start: 06-12-2020 take 1 tablet by brendan th every two hours as needed SUMAtriptan (IMITREX) 100 MG tablet Take 100 mg by mouth every 2 (two) hours as needed . 0 06/12/2020 Active SUMAtriptan (Imi trex) 100 MG tablet 1 (one) time each day at the same time. Active Symbicort 160/4.5 inhalation aerosol with adapter (14 sources) Start: 10-17-2023 take 2 puff(s) by inhalation twice daily Symbicort 160/4.5 inhalation aerosol with adapter 2 puff(s), Inhalation, BID, Refill(s) 0 Start Date: 10/17/23 Status: Ordered Start: 06-08-2022 take 2 puff(s) by in halation twice daily Symbicort 160/4.5 inhalation aerosol with adapter 2 puff(s), Inhalation, BID, 3 EA, Refill(s) 1, [facility], 179, cm, 05/18/22 15:39:00 EDT, Height/Length Dosing, 129, kg, 05/18/22 15:39:00 EDT, Weight Dosing Start Date: 06/08/22 Status: Ordered Start: 07-11-2021 take 2 puff(s) by in halation twice daily Symbicort 160/4.5 inhalation aerosol with adapter 2 puff(s), Inhalation, BID, 3 EA, Refill(s) 1, [facility], 178, cm, 07/11/21 10:05:00 EDT, Height/Length Dosing, 127, kg, 07/11/21 10:05:00 EDT, Weight Dosing Start Date: 07/11/21 Status: Ordered Completed/Discontinued Medications Medication Drug Class(es) Dates Sig (Normalized) Sig (Original) acetaminophen 325 mg / oxyCODONE hydrochloride 5 mg oral tablet (6 sources) Opioid Agonist Start: 05-16-2023 Percocet 5 mg-325 mg oral tablet See Instructions, 30 tab(s), Refill(s) 0, 1-2 po q 4 prn pain, [facility], 177, cm, 05/16/23 13:32:00 EDT, Height/Length Dosing, 127, kg, 05/16/23 13:31:00 EDT, Weight Dosing Start Date: 05/16/23 Status: Ordered Start: 03-29-2023 take 1-2 tablets by mouth every four hours as needed for pain Percocet 5 mg-325 mg oral tablet See Instructions, 50 tab(s), Refill(s) 0, Take one to two every 4 hours as needed for pain., [facility], 177, cm, 05/16/23 13:32:00 EDT, Height/Length Dosing, 127, kg, 05/16/23 13:31:00 EDT, Weight Dosing Start Date: 05/17/23 Status: Ordered fluconazole 150 mg oral tablet (20 sources) Azole Antifungal Start: 04-02-2024 take 1 tablet by mouth once fluconazole 150 mg Tab 150 mg = 1 tab(s), Oral, Once, one tab to be taken once, # 1 tab(s), Refills(s) 0, Pharmacy: [facility] #[id number], 177, cm, 03/24/24 22:52:00 EDT, Height/Length Dosing, 128, kg, 03/24/24 22:52:00 EDT, Weight Dosing Start Date: 04/02/24 Status: Ordered Start: 03-24-2024 take 1 tablet by mouth once fl uconazole 150 mg Tab 150 mg = 1 tab(s), Oral, Once, one tab to be taken once, # 1 tab(s), Refills(s) 0, Pharmacy: [facility], 177, cm, 03/21/24 14:44:00 EDT, Height/Length Dosing, 128.6, kg, 03/21/24 14:47:00 EDT, Weight Dosing Start Date: 03/24/24 Status: Ordered Start: 03-29-2023 Diflucan 150 m g Tab See Instructions, Take one po q 3 day as needed for post op yeast, # 2 caplet(s), Refills(s) 0, Pharmacy: [facility], 177, cm, 03/10/24 18:16:00 EDT, Height/Length Dosing, 128.6, kg, 03/10/24 18:16:00 EDT, Weight Dosing Start Date: 03/10/24 Status: Ordered Start: 01-19-2023 take 1 tablet by mouth once Di flucan 150 mg Tab 150 mg = 1 tab(s), Oral, Once, 1 tab now and 1 after antibiotics if needed, # 2 tab(s), Refills(s) 0, Pharmacy: [facility], 179, cm, 01/19/23 16:50:00 EDT, Height/Length Dosing, 133.5, kg, 01/19/23 16:50:00 EDT, Weight Dosing Start Date: 01/19/23 Status: Ordered Start: 12-22-2021 take 1 tablet by mouth once fl uconazole 150 mg Tab 150 mg = 1 tab(s), Oral, Once, # 1 tab(s), Refills(s) 1, Pharmacy: [facility] #[id number], 178, cm, 12/22/21 10:58:00 EST, Height/Length Dosing, 127.4, kg, 12/22/21 10:58:00 EST, Weight Dosing Start Date: 12/22/21 Status: Ordered Nasacort Allergy 24HR nasal spray (2 sources) Start: 01-25-2021 Nasacort Aller gy 24HR nasal spray 110 mcg, 2 spray(s), Nasal, Daily, 3 EA, Refill(s) 1, [facility] #[id number], 178, cm, 12/16/20 10:55:00 EST, Height/Length Dosing, 125, kg, 12/16/20 10:55:00 EST, Weight Dosing Start Date: 01/25/21 Status: Ordered ProAir HFA 90 mcg/inh inhalation aerosol (8 sources) Start: 08-09-2022 take 1 dose by inhalation every six hours ProAir HFA 90 mcg/inh inhalation aerosol 2 puff(s), Inhalation, q6hr for wheezing, 1 EA, Refill(s) 1, [facility], 179, cm, 06/28/22 9:21:00 EDT, Height/Length Dosing, 129, kg, 06/28/22 9:21:00 EDT, Weight Dosing Start Date: 08/09/22 Status: Ordered Start: 07-11-2021 take 2 puff(s) by in halation every six hours for wheezing ProAir HFA 90 mcg/inh inhalation aerosol 2 puff(s), Inhalation, q6hr for wheezing, 1 EA, Refill(s) 1, [facility], 178, cm, 07/11/21 10:05:00 EDT, Height/Length Dosing, 127, kg, 07/11/21 10:05:00 EDT, Weight Dosing Start Date: 07/11/21 Status: Ordered triamcinolone acetonide 0.055 mg/actuat metered dose nasal spray (20 sources) Corticosteroid Start: 01-25-2021 Nasacort Aller gy 24HR nasal spray 110 mcg, 2 spray(s), Nasal, Daily, 3 EA, Refill(s) 1, [facility] #[id number], 178, cm, 12/16/20 10:55:00 EST, Height/Length Dosing, 125, kg, 12/16/20 10:55:00 EST, Weight Dosing Start Date: 01/25/21 Status: Ordered Start: 2020 End: 08-16-2021 take 2 spray(s) nasal route once daily triamcinolone (NASACORT) 55 mcg nasal inhaler Indications: Chronic rhinitis Instill 2 (two) sprays into each nostril daily . 1 Inhaler 11 08/16/2020 08/16/2021 Active Problems Active Problems Problem Classification Problem Date Documented Date Episodic/Chronic Asthma (20 sources) Asthma; Translations: [Unspecified asthma, uncomplicated] Onset: 03-13-20 Resolved : 08-05-20 Chronic Cataract (1 source) Artificial lens present; Translations: [Presence of intraocular lens] 07-29-2024 Chronic Chronic kidney disease (4 sources) Chronic kidney disease stage 3A ; Translations: [Chronic kidney disease, stage 3a] Onset: 05-10-20 Chronic Deficiency and other anemia (1 source) Iron deficiency anemia 05-20-2019 Episodic Diabetes mellitus with complications (3 sources) Complication due to diabetes mellitus; Translations: [Type 2 diabetes mellitus with other specified complication] Onset: 05-10-20 Chronic Diabetes mellitus without complication (10 sources) Diabetes mellitus; Translations: [Type 2 diabetes mellitus] 05-10-2024 Chronic Diabetes mellitus without complication (20 sources) Hyperglycemia; Translations: [Impaired fasting glycemia] Onset: 03-13-2011-18-2020 Episodic Disorders of lipid metabolism (20 sources) Hyperlipidemia; Translations: [Mixed hyperlipidemia] Onset: 03-13-2005-19-2020 Chronic Disorders of teeth and jaw (20 sources) Toothache; Translations: [Arthralgia of temporomandibular joint] Onset: 12-10-19 24 05-19-2020 Episodic E Codes: Natural/environment (1 source) Bite of nonvenomous arthropod; Translations: [Bitten or stung by nonvenomous insect and other nonvenomous arthropods, initial encounter] Onset: 04-08-20 Episodic Esophageal disorders (20 sources) Acid reflux; Translations: [Gastroesophageal reflux disease] Onset: 03-13-2004-06-2015 Chronic Essential hypertension (20 sources) Essential hypertension; Translations: [Essential (primary) hypertension] Onset: 03-13-20 Chronic Gout and other crystal arthropathies (20 sources) Gout 05-20-2019 Chronic Headache; including migraine (20 sources) Migraine; Translations: [Migraine, unspecified, not intractable, without status migrainosus] Onset: 08-27-2005-20-2019 Chronic Hypertension with complications and secondary hypertension (4 sources) Chronic kidney disease due to hypertension; Translations: [Hypertensive chronic kidney disease with stage 1 through stage 4 chronic kidney disease, or unspecified chronic kidney disease] Onset: 05-10-20 Chronic Inflammation; infection of eye (except that caused by tuberculosis or sexually transmitteddisease) (20 sources) Viral pharyngoconjunctivitis 05-19-2020 Episodic Joint disorders and dislocations; trauma-related (1 source) Derangement of knee; Translations: [Unspecified internal derangement of unspecified knee] Onset: 05-16-20 Chronic Menopausal disorders (4 sources) Primary ovarian failure; Translations: [Other primary ovarian failure] Onset: 05-10-20 Chronic Mood disorders (20 sources) Major depressive disorder; Translations: [Major depressive disorder, single episode, unspecified] Onset: 03-13-20 Resolved : 03-31-20 Chronic Nonspecific chest pain (10 sources) Chest pain; Translations: [Other chest pain] Onset: 04-25-20 Episodic Nutritional deficiencies (9 sources) Decreased vitamin D 12-10-2023 Chronic Osteoarthritis (16 sources) Osteoarthritis of knee; Translations: [Unilateral primary osteoarthritis, left knee] Onset: 03-15-20 Chronic Other aftercare (2 sources) Patient encounter status; Translations: [Aftercare following joint replacement surgery] Onset: 06-19-2006-19-2023 Chronic Other and unspecified benign neoplasm (20 sources) History of polyp of colon 08-02-2021 Episod ic Other congenital anomalies (1 source) Congenital deformity of foot; Translations: [Other specified congenital deformities of feet] Chronic Other connective tissue disease (3 sources) Artificial knee joint present; Translations: [Presence of right artificial knee joint] Onset: 04-05-20 Chronic Other diseases of bladder and urethra (20 sources) Detrusor overactivity; Translations: [Overactive bladder] Onset: 03-13-2003-06-2021 Chronic Other nervous system disorders (5 sources) Neuropathy; Translations: [Neuropathy, idiopathic] Chronic Other nervous system disorders (1 source) Hereditary motor and sensory neuropathy; 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 Other nervous system disorders (1 source) Abnormal gait; Translations: [Unspecified abnormalities of gait and mobility] Episodic Other non-traumatic joint disorders (20 sources) Charcot's joint, left ankle and foot; Translations: [Charcot's joint of foot] Onset: 07-13-20 20 07-13-2020 Chronic Other non-traumatic joint disorders (20 sources) Charcot's arthropathy; Translations: [Charcot's joint, left ankle and foot] Onset: 03-13-2003-31-2019 Chronic Comment on above: left Other non-traumatic joint disorders (1 source) Ankle pain 05-20-2020 Episodic Other non-traumatic joint disorders (20 sources) Rotator cuff arthropathy of right shoulder 09-13-2021 Episodic Other non-traumatic joint disorders (20 sources) Shoulder joint pain 05-19-2019 Episodic Other nutritional; endocrine; and metabolic disorders (20 sources) Obesity; Translations: [Obesity, unspecified] Onset: 12-10-19 Chronic Other nutritional; endocrine; and metabolic disorders (20 sources) Body mass index 40+ - severely obese; Translations: [Body mass index (BMI) 40.0-44.9, adult] Onset: 03-14-2003-07-2021 Chronic Other nutritional; endocrine; and metabolic disorders (20 sources) Morbid obesity; Translations: [Morbid (severe) obesity due to excess calories] Onset: 03-13-2005-16-2021 Chronic Other nutritional; endocrine; and metabolic disorders (1 source) Obese class II; Translations: [Body mass index (BMI) 39.0-39.9, adult] Onset: 12-10-19 Chronic Other nutritional; endocrine; and metabolic disorders (1 source) Body mass index 30+ - obesity 12-10-2023 Chronic Other nutritional; endocrine; and metabolic disorders (9 sources) Obesity caused by energy imbalance 12-10-2023 Chronic Other nutritional; endocrine; and metabolic disorders (5 sources) Severe obesity 03-10-2024 Chronic Other upper respiratory disease (2 sources) Chronic rhinitis; Translations: [Chronic rhinitis] Chronic Other upper respiratory disease (20 sources) Allergic rhinitis; Translations: [Chronic allergic rhinitis] 12-15-2020 Chronic Other upper respiratory disease (20 sources) 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 Chronic Other upper respiratory infections (20 sources) Recurrent sinusitis; Translations: [Chronic maxillary sinusitis] Onset: 03-13-2010-19-2021 Chronic Otitis media and related conditions (2 sources) Chronic eustachian tube salpingitis 09-13-2021 Chronic Pneumonia (except that caused by tuberculosis or sexually transmitted disease) (1 source) Mycoplasma pneumonia 10-31-2021 Episodic Residual codes; unclassified (7 sources) Pain; Translations: [Pain] Episo dic Spondylosis; intervertebral disc disorders; other back problems (20 sources) Low back pain; Translations: [Low back pain, unspecified] Onset: 12-08-19 Episodic Thyroid disorders (20 sources) Congenital hypothyroidism; Translations: [Hypothyroidism] Onset: 03-13-20 22 11-18-2020 Chronic Unclassified (20 sources) Patient encounter status Resolved : 06-12-2008-25-2019 Past or Other Problems Problem Classification Problem Date Documented Date Episodic/Chronic Acquired foot deformities (1 source) Flat foot [pes planus] (acquired), right foot; Translations: [FLAT FOOT PES PLANUS ACQ RT FOOT] Onset: 08-05-2022 Episodic Joint disorders and dislocations; trauma-related (2 sources) Dislocation of patellofemoral joint; Translations: [Unspecified dislocation of left patella, initial encounter] Onset: 05-14-2023 05-14-2023 Episodic Malaise and fatigue (20 sources) Fatigue; Translations: [Fatigue, unspecified type] Resolved: 05-20-2019 08-25-2019 Episodic Other connective tissue disease (20 sources) Epicondylitis Onset: 07-06-2011 Resolved: 09-27-2011 08-25-2019 Episodic Comment on above: R elbow Other connective tissue disease (4 sources) Pain in right foot; Translations: [PAIN IN RIGHT FOOT] Onset: 08-02-2022 Episodic Other non-traumatic joint disorders (2 sources) Pain in left knee; Translations: [Pain in joint, lower leg] Onset: 05-03-2023 05-03-2023 Episodic Other screening for suspected conditions (not mental disorders or infectious disease) (20 sources) Breast neoplasm screening status; Translations: [Encounter for screening mammogram for malignant neoplasm of breast] Onset: 12-08-2023 Resolved: 06-12-2019 08-25-2019 Episodic Other skin disorders (20 sources) Actinic keratosis Resolved: 05-20-2019 08-25-2019 Episodic Other upper respiratory disease (20 sources) Allergic rhinitis due to pollen; Translations: [Allergic rhinitis due to pollen] Onset: 03-14-2022 Resolved: 06-12-2019 08-25-2019 Chronic Other upper respiratory disease (1 source) Nasal sinus problem; Translations: [Sinus pressure] Episodic Other upper respiratory infections (20 sources) Acute frontal sinusitis; Translations: [Acute sinusitis] Onset: 08-12-2022 Resolved: 05-19-2019 08-25-2019 Episodic Residual codes; unclassified (1 source) H/O: surgery; Translations: [Status post functional endoscopic sinus surgery (FESS)] Episodic Residual codes; unclassified (20 sources) Abnormal sensation Resolved: 05-20-2019 08-25-2019 Episodic Residual codes; unclassified (2 sources) History of arthroscopy of knee joint; Translations: [Other specified postprocedural states] Onset: 06-19-2023 06-19-2023 Episodic Unclassified (20 sources) Entire nasal sinus (body structure) Resolved: 08-13-2012 05-19-2019 Comment on above: sinus problems, with nasal congestion Unclassified (20 sources) Entire temporomandibular joint (body structure) 04-06-2015 Results Test Name Value Interpretation Reference Range Facil ity Nonvisit Note - PTon 024 Nonvisit Note - PT Nonvisit Note - PT woke up and is not feeling well Normal [facility] Nonvisit Note - PTon 024 Nonvisit Note - PT Nonvisit Note - PT Chart reviewed with eval prepped for scheduled eval. KK Normal [facility] BD Bone Density DEXAon 05-18 BD Bone Density DEXA Exam Date/Time: 05/14/2024 12:57 EDT Reason for Exam: E28.39;Menopausal Report IMPRESSION: BONE DENSITY IS WITHIN NORMAL LIMITS. The NOF/ISD guideline recommend FRAX for postmenopausal patients (not on treatment) if the lowest T-score for Spine(L1-L4), Femur Neck or Femur Total indicates low bone density (T score between -1.0 to -2.5, osteopenia). EXAM: BD Bone Density DEXA DATE: 05/14/2024 12:33 PM CLINICAL HISTORY: Menopausal, E28.39. COMPARISON: 04/20/2014 COMMENT: The lumbar spine and both hips were scanned. The mean bone mineral density from L1 to L4 is 1.880 g/cm2 and this value is 5.8 standard of deviation above the standard reference value for a young adult. Bone mineral density of the left femoral neck is 1.207 g/cm2 and this value is 1.2 standard of deviation above the standard reference value. Bone mineral density of the right femoral neck is 1.147 g/cm2 and this value is 0.8 standard of deviation above the standard reference value. These values are within the normal range. When compared to the prior exam, there has been a significant 11.8% increase in bone mineral density from L1 to L4 that may be related increasing degenerative changes, a nonsignificant -2.3% decrease in bone mineral density of the left femoral neck, and a nonsignificant 3.1% increase in bone mineral density of the right femoral neck. RECOMMENDATIONS: 1. All patients should optimize her calcium and vitamin D intake. 2. Consider FDA-approved medical therapies in postmenopausal women and minimal age 50 years and older, based on the following: - hip or vertebral (clinical or morphometric) fracture. - T-score less than or equal to -2.5 at the femoral neck or spine after the appropriate evaluation to exclude secondary causes. - Low bone density (T score between -1.0 and -2.5 at the femoral neck or spine) and a 10 year probability of hip fracture greater than or equal to 3% or a 10-year probability of a major osteoporosis-relate d fracture greater than or equal to Report 20% based on FRAX calculation. - Clinician judgment and/or patient preferences may indicate treatment for palpable attenuation fracture probability is above or below these levels. - Further guidance on treatment can be found at the National Osteoporosis Foundation's website: bonesource.org 3. Patients with diagnosis of osteoporosis or high risk for fracture. There are irregular bone mineral density tests. For patients eligible for Medicare, routine testing is allowed once every 2 years. Testing frequency can be increased to 1 year for patient's history of rapidly progressing disease, those who are receiving or discontinuing medical therapy to restore bone mass or have additional risk factors. Ordering Provider: Mara BEVERLY FINAL REPORT Dictated: 05/18/2024 12:44 pm Audie Cartagena MD Signed (Electronic Signature): 05/18/2024 12:44 pm Signed by: Audie Cartagena MD Transcribed by: HENRIETTA Technologist: NICK De La Fuente [facility] MA Mamm Screen w/CAD if perf and 3D Bilon 05-18-2024 MA Mamm Screen w/CAD if perf and 3D Kenji Exam Date/Time: 05/14/2024 12:46 EDT Reason for Exam: Z12.31;Screening Report IMPRESSION: BIRADS 1 NEGATIVE, NORMAL INTERVAL FOLLOW-UP Follow-up: 12 MONTH RECALL Density: Scattered tissue. Vascular calcifications: Absent. EXAM: MA Mamm Screen w/CAD if perf and 3D Kenji DATE: 05/14/2024 12:14 PM CLINICAL HISTORY: Screening, Z12.31. COMPARISONS: 09/09/2021, 07/12/2020, and 06/16/2019. TECHNIQUE: Routine full-field digital mammograms and 3D breast tomosynthesis were obtained of both breasts. FINDINGS: There are no developing densities, suspicious microcalcifications , or areas of architectural distortion identified on the current study. No significant changes are identified from the prior studies, given differences in technique and positioning. Dense Breast: No. CAD analysis was performed and used in the interpretation. Board Certified Radiologists. Accredited by the ACR and FDA. MAMMOGRAPHY IS VERY IMPORTANT TO YOUR HEALTH. THE CURRENT [place] [employer] OF [employer]IOLOG[employer] AND N[employer]WORK GUIDELINES RECOMMENDS ANNUAL MAMMOGRAPHY BEGINNING AT AGE 40. THIS FACILITY UTILIZES A REMINDER SYSTEM TO ENSURE ALL PATIENTS RECEIVE REMINDER NOTIFICATIONS AT THE APPROPRIATE TIME BASED ON THE RECOMMENDATIONS OF THIS EXAM. Report Ordering Provider: Mara BEVERLY FINAL REPORT Dictated: 05/18/2024 12:33 pm Audie Cartagena MD Signed (Electronic Signature): 05/18/2024 12:33 pm Signed by: Audie Cartagena MD Transcribed by: HENRIETTA Technologist: [facility] Assessment: BI-RADS Category 1-Negative Recommendation: Normal interval follow-up Normal [facility] U Microalbon 05-13-2024 Albumin DL <= 20 mg/L (U) [Mass/Vol] 1.7 mg/dL Normal 0.0-1.9 [facility] Comment on above: Performed By: #### 1 [id number] #### [facility] [address] [place] [address] U Protein/Creat Ratioon 04-22 Protein/Creatinine (U) [Ratio] 9.40 mg/gm Cr Normal .00-200.00 [facility] Comment on above: Performed By: #### 1 [id number] #### [facility] [address] [place] [address] U Creatinine 139.0 mg/dL Invalid Interpretation Code [facility] Comment on above: Performed By: #### 1 [id number] #### [facility] [address] [place] [address] Ur Total Protein 13.1 mg/dL Invalid Interpretation Code [facility] Comment on above: Performed By: #### 1 [id number] #### [facility] [address] [place] [address] Ambulatory Visit Summaryon 0 05-12-2024 Ambulatory Visit Summary Ambulatory Visit Summary LEVI SOFIA :1960 Visit Date:05/12/2024 Ambulatory Visit Instructions Your Diagnosis Controlled diabetes mellitus with diabetic polyneuropathy Type 2 diabetes mellitus with hyperlipidemia Diabetes mellitus with renal manifestation Chronic renal impairment, stage 3a Benign hypertension Renal disease, hypertensive benign Combined hyperlipidemia Hypothyroidism, congenital Screening mammogram, encounter for Ovarian failure Morbid obesity BMI 40.0-44.9, adult Your Care Team Attending Physician - SIRIA ARMENTA, Mara Primary Care Physician - SIRIA ARMENTA, Maar This Is Your Medications List Misc Prescription (Nebulizer Machine) Misc Prescription (Nebulizer machine tubing/ kit) albuterol (Albuterol (Eqv-ProAir HFA) 90 mcg/inh inhalation aerosol) albuterol (albuterol 0.083% Inh Mamie 3 mL) albuterol-ipratropi um (DuoNeb 2.5 mg-0.5 mg/3 mL Soln-Inh) atorvastatin (atorvastatin 20 mg Tab) brompheniramine/dex tromethorphan/PSE (Bromfed DM oral syrup) citalopram (citalopram 20 mg Tab) diclofenac (diclofenac sodium 75 mg Oral EC Tab) docusate (Colace 100 mg Cap) duloxetine (duloxetine 30 mg oral delayed release capsule) fexofenadine (Carla 24 Hour Allergy oral tablet) fluconazole (Diflucan 150 mg Tab) fluconazole (fluconazole 150 mg Tab) fluticasone-vilante rol (Breo Ellipta 100 mcg-25 mcg inhalation powder) hydrochlorothiazide (hydrochlorothiazid e 12.5 mg Cap) levothyroxine (levothyroxine 137 mcg (0.137 mg) Tab) losartan (losartan 50 mg Tab) multivitamin (Daily Multiple Vitamins) mupirocin topical (mupirocin Top 2% Crm) omeprazole (omeprazole 20 mg Cap-DR) oxybutynin (oxybutynin 15 mg ER Tab) permethrin topical (permethrin Top 5% Crm) propranolol (propranolol 80 mg Cap-ER) sumatriptan (SUMAtriptan 100 mg Tab) triamcinolone nasal (Nasacort Allergy 24HR nasal spray) Procedures Performed Total knee replacement (05/16/2023), Knee replacement (04/02/2023), Colonoscopy (08/18/2021), Left foot (01/10/2021), Radiofrequency denervation of spinal facet joint of lumbar vertebra (08/18/2020), Injection of facet joint using fluoroscopic guidance (07/21/2020), Injection of facet joint using fluoroscopic guidance (07/07/2020), Cataract extraction and insertion of intraocular lens (07/05/2020), Injection of sacroiliac joint using fluoroscopic guidance (03/10/2020), Injection of sacroiliac joint using fluoroscopic guidance (12/02/2019), Sacroiliac joint injection (08/27/2019), Injection of sacroiliac joint using fluoroscopic guidance (05/28/2019), Injection of sacroiliac joint using fluoroscopic guidance (02/05/2019), Left Transforaminal Epidural Steroid Injection (11/13/2018), Epidural injection of lumbar spine using fluoroscopic guidance (09/25/2018), Transforaminal Epidural Steroid Injection (07/17/2018), epidural steroid injection (06/12/2018), transforaminal epidural steroid injection (04/10/2018), Cataract extraction and insertion of intraocular lens (04/01/2018), transforaminal steroid injection (04/18/2017), EVLT LGSV (07/11/2016), ABHINAV lumbosacral (03/29/2016), transforaminal steroid injection (12/22/2015), transforaminal steroid injection (09/15/2015), transforaminal steroid injection (06/30/2015), Transforaminal steriod injection (04/30/2015), Trasforaminal steriod injection (02/12/2015), Transforaminal steriod injection (11/20/2014), Transforaminal epidural steroid injection (05/22/2014), Epidural injection of lumbar spine using fluoroscopic guidance (01/28/2014), Epidural injection of lumbar spine using fluoroscopic guidance (11/19/2013), Epidural injection of lumbar spine using fluoroscopic guidance (09/24/2013), scraping of the elbow-right (2011), hysterectomy (2008), Tonsillectomy (1964), Bunion, Hysterectomy, Sinus congestion, sinus surgeries, Transforaminal epidural steroid injection. Discharge Vitals Heart Rate (Peripheral) 67 Respiratory Rate 20 Blood Pressure 130/80 Height 177 cm Height 70 in Weight 125 kg Weight 275 lb BMI 39.9 What to do next Scheduled Follow-Up Appointments Sunday 12:15 PM EDT With: Where: [facility] Sunday 1:00 PM EDT With: Where: [facility] Sunday 2:15 PM EDT With: ROMÁN ARMENTA, Farzad Elliott Where: [facility] Invalid Interpretation Code [address] [place] [address]- \.br\ Sunday 3:40 PM EDT \.br\ With: Mara BEVERLY MD\.br\ Where: [facility] Family Medicine Office/Clini c Noteon 05-12-2024 Family Medicine Office/Clinic Note Family Medicine Office/Clinic Note Chief Complaint 6mo chk up, discuss lab results, no rfs, needs AMV/dm eye exam/microalbumin/d m foot exam History of Present Illness The patient is a 64-year-old female with new onset diabetes mellitus. Recent A1c was 6.6. Lipids are moderately elevated including triglycerides chronically. She tolerates statin daily, tries to follow diet but freely admits she overdoes diet pop and does like to eat. She is very poor drinking water. She has a history of Charcot foot on the left and now has the same problem on the right. There is family history of diabetes mellitus. She denies polyuria polydipsia. She follows with ophthalmology for cataract management. She denies any acute visual disturbances nothing blurry. Severity of asthma exacerbation earlier this season has finally resolved and she feels stable.. She is scheduled for a mammogram and bone density test on Sunday. Review of Systems PHQ Score Initial Depression Screen Score: 2 SCORE See HPI otherwise negative Physical Exam Vitals & Measurements HR: 67(Peripheral) RR: 20 BP: 130/80 SpO2: 98% HT: 70 in HT: 177 cm WT: 125 kg WT: 275 lb BMI: 39.9 Patient is well groomed and adequately hydrated. Head is normocephalic and atraumatic. Conjunctiva is clear. Pupils are symmetric. Hearing is grossly normal. Neck is thick but supple. No JVD, no bruits, no thyromegaly. Lungs are clear bilaterally. Heart has a regular rate and rhythm. No murmur, gallop, or rub. Abdomen is obese with active bowel sounds, nontender. Patient is wearing an ankle brace on the right. Extremely flat feet. Diabetic foot exam is separately recorded. Posture is somewhat stooped. Well healed incisional scars on the knees. Ambulates with an antalgic gait using a rolled walker. Skin is relatively pale. There is some senile purpura on the arms. Patient is polite, cooperative, with good insight. Diabetic Foot Exam Decreased Monofilament Sensation Foot: Left - Abnormal, Right - Abnormal Bunions/Foot Deformity: Left - Abnormal, Right - Abnormal Abnormal Pulse Foot: Right - Normal, Left - Normal Skin Lesions Foot: Right - Abnormal, Left - Normal Vibratory Sensation Foot: Right - Normal, Left - Normal Foot Exam Result: Abnormal foot exam Foot Exam Findings: Bilateral hammertoes #2 through 5, no maceration webspaces. Feet flat lacking normal arch support. Beneath the R grt toe, small dry ulcer nontender. Negligible monofilament sensation bilat plantar surfaces calluses heels and metatarsal heads Assessment/Plan 1. Controlled diabetes mellitus with diabetic polyneuropathy (E11.42: Type 2 diabetes mellitus with diabetic polyneuropathy) Reviewed the utmost importance of diabetic footcare with patient. Continue wearing shoes and socks all the time particularly with limited light touch sensation great risk of skin breakdown. Asking her to discuss with Dr. Johnson of podiatry the small ulceration on the plantar aspect right great toe. Diabetic teaching will be ordered through the hospital. At this point deferring additional medications but would certainly give consideration to Jardiance or Farxiga with her renal insufficiency Ordered: [facility] Internal Ambulatory Referral 2. Type 2 diabetes mellitus with hyperlipidemia (E11.69: Type 2 diabetes mellitus with other specified complication) Continue current statin and must exercise great caution with dietary compliance. Dietary constraints reviewed to help reduce triglycerides Ordered: [facility] Internal Ambulatory Referral 3. Diabetes mellitus with renal manifestation (E11.29: Type 2 diabetes mellitus with other diabetic kidney complication) See #4 patient will set up diabetic eye exam. Ordered: [facility] Internal Ambulatory Referral 4. Chronic renal impairment, stage 3a (N18.31: Chronic kidney disease, stage 3a) Chronic renal insufficiency unchanged. Exercise great caution with any anti-inflammatory use OTC. Strong recommendation for daily water intake to increase. 5. Benign hypertension (I10: Essential (primary) hypertension) The importance of the following were all reviewed with the patient: -Take Rx(s )as prescribed. There are simple Lifestyle Modifications that you can do to reduce your blood pressure. -Weight Reduction -Follow the DASH eating plan. More information about this eating plan can be found here: https://www.nhlbi.n ih.gov/health/healt h-topics/topics/matamoros h -Reduce Sodium (Salt) Intake to 2000mg per day. -Use Moderation when consuming alcohol. - To improve your health we recommend increasing your level of moderate exercise to at least 2.5 hrs per week. For more information, please visit the CDC Exercise and Fitness Recommendations at www.cdc.gov/physica lactivity/basics/in dex.htm 6. Renal disease, hypertensive benign (I12.9: Hypertensive chronic kidney disease with stage 1 through stage 4 chronic kidney disease, or unspecified chronic kidney disease) Continue with renal protective effect of losartan. 7. C (more content not included)... Normal [facility] Comment on above: Result Comment: Elec tronically Signed By: SIRIA ARMENTA, Mara\.br\Date and Time Signed: 05/12/24 20:23 EDT [id number] 04-15-2024 HbA1c (Bld) [Mass fraction] 6.6 % High <=5.9 [facility] Comment on above: Order Comment: Just spoke with crime lab analyst. Please add this test to blood drawn earlier today, thank you Performed By: #### 7 [id number] #### [facility] [address] [place] [address] Advance Beneficiary Notifica tionson 04-14-2024 Advance Beneficiary Notifications [phone] [id number] Normal [facility] CBC w/ Auto Diffon 4 Basophils/100 WBC (Bld) 1.3 % Normal 0.0-2.0 [facility] Comment on above: Performed By: #### 2 [id number] #### [facility] [address] [place] [address] Basophils/Leukocyte s Auto (Bld) [Pure # fraction] 0.1 E9/L Normal 0.0-0.2 [facility] Comment on above: Performed By: #### 2 [id number] #### [facility] [address] [place] [address] Eosinophils (Bld) [#/Vol] 0.2 E9/L Normal 0.0-0.5 [facility] Comment on above: Performed By: #### 2 [id number] #### [facility] [address] [place] [address] Eosinophils/100 WBC (Bld) 3.8 % Normal 0.0-8.0 [facility] Comment on above: Performed By: #### 2 [id number] #### [facility] [address] [place] [address] Erythrocyte distribution width (RBC) [Ratio] 14.8 % High 10.9-14.2 [facility] Comment on above: Performed By: #### 2 [id number] #### [facility] [address] [place] [address] Hematocrit (Bld) [Volume fraction] 39.9 % Normal 34.0-46.0 [facility] Comment on above: Performed By: #### 2 [id number] #### [facility] [address] [place] [address] Hemoglobin (Bld) [Mass/Vol] 13.7 g/dL Normal 12.0-16.0 [facility] Comment on above: Performed By: #### 2 [id number] #### [facility] [address] [place] [address] Lymphocytes (Bld) [#/Vol] 2.1 E9/L Normal 1.0-4.0 [facility] Comment on above: Performed By: #### 2 [id number] #### [facility] [address] [place] [address] Lymphocytes/100 WBC (Bld) 35.4 % Normal 14.0-50.0 [facility] Comment on above: Performed By: #### 2 [id number] #### [facility] [address] [place] [address] MCH (RBC) [Entitic mass] 31.5 pg Normal 27.0-34.0 [facility] Comment on above: Performed By: #### 2 [id number] #### [facility] [address] [place] [address] MCHC (RBC) [Mass/Vol] 34.2 g/dL Normal 31.4-36.0 [facility] Comment on above: Performed By: #### 2 [id number] #### [facility] [address] [place] [address] MCV (RBC) [Entitic vol] 92.0 fL Normal 80.0-100.0 [facility] Comment on above: Performed By: #### 2 [id number] #### [facility] [address] [place] [address] Monocytes (Bld) [#/Vol] 0.4 E9/L Normal 0.2-1.0 [facility] Comment on above: Performed By: #### 2 [id number] #### [facility] [address] [place] [address] Neutrophils (Bld) [#/Vol] 3.0 E9/L Normal 2.0-7.5 [facility] Comment on above: Performed By: #### 2 [id number] #### [facility] [address] [place] [address] Neutrophils/100 WBC (Bld) 52.2 % Normal 36.0-75.0 [facility] Comment on above: Performed By: #### 2 [id number] #### [facility] [address] [place] [address] Platelet 251.0 E9/L Normal 150.0-500.0 [facility] Comment on above: Performed By: #### 2 [id number] #### [facility] [address] [place] [address] Platelet mean volume (Bld) [Entitic vol] 8.7 fL Normal 6.4-10.8 [facility] Comment on above: Performed By: #### 2 [id number] #### [facility] [address] [place] [address] RBC (Bld) [#/Vol] 4.3 E12/L Normal 4.3-5.9 [facility] Comment on above: Performed By: #### 2 [id number] #### [facility] [address] [place] [id number] WBC corrected for nucl RBC Auto (Bld) [#/Vol] 5.8 E9/L Normal 4.0-11.0 [facility] Comment on above: Performed By: #### 2 [id number] #### [facility] [address] [place] [address] CHEMISTRYOrdered By: SYSTEM SYSTEM on 04-14-2024 Albumin [Mass/Vol] 4.2 g/dL Normal 3.3 - 5.0 gm/dL R emisol Chem Albumin/Globulin [Mass ratio] 1.4 {ratio} Normal 1.1 - 2.2 Remisol Chem ALP [Catalytic activity/Vol] 75 [iU]/d Normal 21 - 98 Int._Unit/L Remisol Chem ALT No additional P-5'-P [Catalytic activity/Vol] 23 [iU]/d Normal 6 - 46 Int._Unit/L Remisol Chem Anion gap [Moles/Vol] 13 mmol/L Normal 6 - 16 mEq/L Remisol Chem AST [Catalytic activity/Vol] 19 [iU]/d Normal 5 - 43 Int._Unit/L Remisol Chem Bilirubin [Mass/Vol] 0.5 mg/dL Normal 0.0 - 1.1 mg/dL Remisol Chem Calcium [Mass/Vol] 10.0 mg/dL Normal 8.9 - 11.1 mg/dL Remisol Chem Chloride [Moles/Vol] 105 mmol/L Normal 101 - 111 mmol/L Remisol Chem Cholesterol [Mass/Vol] 164 mg/dL Normal 120 - 200 mg/dL Remisol Chem Cholesterol in HDL [Mass/Vol] 42 mg/dL Invalid Interpretation Code Remisol Chem Comment on above: Result Comment: '>= 60 LOW RISK' '<= 40 HIGH RISK' Cholesterol in LDL [Mass/Vol] 83 mg/dL Normal <=129mg/dL Remisol Chem Cholesterol in VLDL [Mass/Vol] 49 mg/dL High 7 - 40 mg/dL Remisol Chem CO2 [Moles/Vol] 25 mmol/L Normal 21 - 31 mmol/L Remis ol Chem Creatinine [Mass/Vol] 1.2 mg/dL Normal 0.5 - 1.3 mg/dL Remisol Chem eGFR 50 mL/min/1.73 m2 Low >=59mL/min/1.73 m2 Remisol Chem Globulin (S) [Mass/Vol] 3.1 g/dL Normal 1.4 - 4.0 gm/dL Remisol Chem Glucose [Mass/Vol] 140 mg/dL Normal 55 - 199 mg/dL Re misol Chem Potassium [Moles/Vol] 4.7 mmol/L Normal 3.5 - 5.3 mmol/L Remisol Chem Protein [Mass/Vol] 7.3 g/dL Normal 6.0 - 7.8 gm/dL R emisol Chem Sodium [Moles/Vol] 138 mmol/L Normal 135 - 145 mmol/L Remisol Chem Triglyceride [Mass/Vol] 246 mg/dL High <=149mg/dL Remisol Chem TSH Qn 2.34 m[IU]/L Normal 0.34 - 5.60 mcIU/mL Rem isol Chem Urea nitrogen [Mass/Vol] 28 mg/dL High 5 - 21 mg/dL Remisol Chem Urea nitrogen/Creatinine [Mass ratio] 23 mg/mg High 10 - 20 Remisol Chem CMPon 04-14-2024 Albumin [Mass/Vol] 4.2 g/dL Normal 3.3-5.0 [facility] Comment on above: Performed By: #### 2 [id number] #### [facility] [address] [place] [address] Albumin/Globulin (S) [Mass conc ratio] 1.4 Normal 1.1-2.2 [facility] Comment on above: Performed By: #### 2 [id number] #### [facility] [address] [place] [address] ALP [Catalytic activity/Vol] 75 Int._Unit/L Normal 21-98 [facility] Comment on above: Performed By: #### 2 [id number] #### [facility] [address] [place] [address] ALT No additional P-5'-P [Catalytic activity/Vol] 23 Int._Unit/L Normal 6-46 [facility] Comment on above: Performed By: #### 2 [id number] #### [facility] [address] [place] [address] Anion gap [Moles/Vol] 13 mmol/L Normal 6-16 [facility] Comment on above: Performed By: #### 2 [id number] #### [facility] [address] [place] [address] AST [Catalytic activity/Vol] 19 Int._Unit/L Normal 5-43 [facility] Comment on above: Performed By: #### 2 [id number] #### [facility] [address] [place] [address] Bilirubin [Mass/Vol] 0.5 mg/dL Normal 0.0-1.1 [facility] Comment on above: Performed By: #### 2 [id number] #### [facility] [address] [place] [address] Calcium [Mass/Vol] 10.0 mg/dL Normal 8.9-11.1 [facility] Comment on above: Performed By: #### 2 [id number] #### [facility] [address] [place] [address] Chloride [Moles/Vol] 105 mmol/L Normal 101-111 [facility] Comment on above: Performed By: #### 2 [id number] #### [facility] [address] [place] [address] CO2 [Moles/Vol] 25 mmol/L Normal 21-31 [facility] Comment on above: Performed By: #### 2 [id number] #### [facility] [address] [place] [address] Creatinine [Mass/Vol] 1.2 mg/dL Normal 0.5-1.3 [facility] Comment on above: Performed By: #### 2 [id number] #### [facility] [address] [place] [address] Globulin (S) [Mass/Vol] 3.1 g/dL Normal 1.4-4.0 [facility] Comment on above: Performed By: #### 2 [id number] #### [facility] [address] [place] [address] Glucose [Mass/Vol] 140 mg/dL Normal 55-199 [facility] Comment on above: Performed By: #### 2 [id number] #### [facility] [address] [place] [address] Potassium [Moles/Vol] 4.7 mmol/L Normal 3.5-5.3 [facility] Comment on above: Performed By: #### 2 [id number] #### [facility] [address] [place] [address] Protein [Mass/Vol] 7.3 g/dL Normal 6.0-7.8 [facility] Comment on above: Performed By: #### 2 [id number] #### [facility] [address] [place] [address] Sodium [Moles/Vol] 138 mmol/L Normal 135-145 [facility] Comment on above: Performed By: #### 2 [id number] #### [facility] [address] [place] [address] Urea nitrogen [Mass/Vol] 28 mg/dL High 5-21 [facility] Comment on above: Performed By: #### 2 [id number] #### [facility] [address] [place] [address] Urea nitrogen/Creatinine [Mass ratio] 23 No Units High 10-20 [facility] Comment on above: Performed By: #### 2 [id number] #### [facility] [address] [place] [address] Consent for Treatmenton 03-23 Consent for Treatment [id number] Normal [facility] HEMATOLOGYOrdered By: SYSTEM SYSTEM on 04-14-2024 Basophils/100 WBC (Bld) 1.3 % Normal 0.0 - 2.0 % Remisol Heme Basophils/Leukocyte s Auto (Bld) [Pure # fraction] 0.1 E9/L Normal 0.0 - 0.2 E9/L [facility]e Eosinophils (Bld) [#/Vol] 0.2 E9/L Normal 0.0 - 0.5 E9/L [facility]e Eosinophils/100 WBC (Bld) 3.8 % Normal 0.0 - 8.0 % Remisol Heme Erythrocyte distribution width (RBC) [Ratio] 14.8 % High 10.9 - 14.2 % Rem[facility] Heme Hematocrit (Bld) [Volume fraction] 39.9 % Normal 34.0 - 46.0 % Remisol Heme Hemoglobin (Bld) [Mass/Vol] 13.7 g/dL Normal 12.0 - 16.0 gm/dL [facility]e Lymphocytes (Bld) [#/Vol] 2.1 E9/L Normal 1.0 - 4.0 E9/L [facility]e Lymphocytes/100 WBC (Bld) 35.4 % Normal 14.0 - 50.0 % Remisol Heme MCH (RBC) [Entitic mass] 31.5 pg Normal 27.0 - 34.0 pg Remisol Heme MCHC (RBC) [Mass/Vol] 34.2 g/dL Normal 31.4 - 36.0 gm/dL Remisol Heme MCV (RBC) [Entitic vol] 92.0 fL Normal 80.0 - 100.0 fL Rem[facility] Heme Monocytes (Bld) [#/Vol] 0.4 E9/L Normal 0.2 - 1.0 E9/L Rem[facility] Heme Monocytes/100 WBC (Bld) 7.3 % Normal 4.0 - 14.0 % Rem[facility] Heme Neutrophils (Bld) [#/Vol] 3.0 E9/L Normal 2.0 - 7.5 E9/L Rem[facility] Heme Neutrophils/100 WBC (Bld) 52.2 % Normal 36.0 - 75.0 % Remisol Heme Platelet 251.0 E9/L Normal 150.0 - 500.0 E9/L Remiso l Heme Platelet mean volume (Bld) [Entitic vol] 8.7 fL Normal 6.4 - 10.8 fL Remisol Heme RBC (Bld) [#/Vol] 4.3 E12/L Normal 4.3 - 5.9 E12/L Re misol Heme WBC corrected for nucl RBC Auto (Bld) [#/Vol] 5.8 E9/L Normal 4.0 - 11.0 E9/L Rem[facility] Heme Lipid Panelon 04-14-2024 Cholesterol [Mass/Vol] 164 mg/dL Normal 120-200 [facility] Comment on above: Performed By: #### 2 [id number] #### [facility] [address] [place] [address] Cholesterol in HDL [Mass/Vol] 42 mg/dL Invalid Interpretation Code [facility] Comment on above: Result Comment: '>= 60 LOW RISK' '<= 40 HIGH RISK' Performed By: #### 2 [id number] #### [facility] [address] [place] [address] Cholesterol in LDL [Mass/Vol] 83 mg/dL Normal <=129 [facility] Comment on above: Performed By: #### 2 [id number] #### [facility] [address] [place] [address] Cholesterol in VLDL [Mass/Vol] 49 mg/dL High 7-40 [facility] Comment on above: Performed By: #### 2 [id number] #### [facility] [address] [place] [address] Triglyceride [Mass/Vol] 246 mg/dL High <=149 [facility] Comment on above: Performed By: #### 2 [id number] #### [facility] [address] [place] [address] TSH With T4fr Reflexon 04-14 TSH Qn 2.34 m[IU]/L Normal 0.34-5.60 [facility] Comment on above: Performed By: #### 1 [id number] #### [facility] [address] [place] [address] eGFRon 04-14-2024 eGFR 50 mL/min/1.73 m2 Low >=59 [facility] Comment on above: Order Comment: Order added by Discern Expert. Performed By: #### 1 [id number] #### [facility] [address] [place] [address] Family Medicine Office/Clini c Noteon 04-08-2024 Family Medicine Office/Clinic Note Chief Complaint possible bed bug bites HPI Staff Pt. states she stayed at a hotel in [place], thinks she may have bed bug bites. Has noted bites on legs, arms and stomach, some are itchy. Has tried hydrocortisone cream History of Present Illness Reviewed and agree with above documented HPI by medical claims specialist. Portions of this record may have been created with voice recognition artificial intelligence software, specifically [employer], [employer] and or [employer]. Substitutions may have occurred due to the inherent limitations of voice recognition and artificial intelligence software. Patient is a 63-year-old female who presents to the [facility], for insect bites to her arms legs and abdomen, states she stayed at hot this past Sunday night, woke up Sunday morning about 2 days ago with insect bites, concerned that she could have been exposed to bedbugs, states her grandson who is the same room with her and also has some lesions as well, patient states they are itchy and only located in her bilateral lower leg area abdominal wall and arms, states she has not noticed any other rashes, denies having any fevers, chills, nausea or vomiting, sore throat, cough, chest pain, shortness of breath, or any extremity pain. Review of Systems PHQ Score Initial Depression Screen Score: 0 SCORE Physical Exam Vitals & Measurements HR: 65(Peripheral) BP: 138/76 SpO2: 98% HT: 70 in HT: 177 cm WT: 125.7 kg WT: 276.54 lb BMI: 40.12 General: Well developed, well nourished, in no acute distress. Patient does not appear ill or septic. No respiratory distress. Patient answers questions appropriately and in complete sentences. Patient follows commands appropriately. Head: Normocephalic/atrau matic. No upper respiratory infection. Lungs: Normal respiratory effort and clear to auscultation throughout. Cardio: regular rate and rhythm, no murmur. No mastoid tenderness. Abdomen: Soft, nondistended, nontender. Extremity: Patient is able to move all 4 extremities equally. Without pain or weakness. Neurologic: Grossly normal Skin: Patient insect bites on bilateral arms and bilateral lower legs, more anterior than posterior, itchy on exam, does not presents as contact dermatitis, poison ant, scabies, impetigo, with tick bites. No facial swelling cellulitis. No angioedema, swollen tongue, or difficulty swallowing is noted. No soft tissue swelling. No bony tenderness. Remaining skin exam is within normal limits. Lymph Nodes: no lad Mental Status: alert, active Assessment/Plan 64-year-old female presented to [facility], for bedbug bites, exposure this past weekend, stepped in a hole to her room on Sunday night, started with the lesions on Sunday, about 2 days ago, no facial swelling cellulitis, patient appears ill or septic, respiratory distress, difficulty swallowing. Patient was given a prescription for permethrin lotion, take [id number]-[id number] Benadryl as needed for itchiness, follow-up with primary care provider as needed. 1. Bed bug bite (W57.XXXA: Bitten or stung by nonvenomous insect and other nonvenomous arthropods, initial encounter) See above 2. BMI 40.0-44.9, adult (Z68.41: Body mass index [BMI] 40.0-44.9, adult) The standard range for ages 18 and older is >=18.5 and < 25 kg/m2. Your BMI today was above this range, this falls in the overweight to obese category and there are medical benefits to weight loss. We can offer counselling, referral, and/or medical support in addressing this problem. Your BMI and weight management will be followed at subsequent visits. Orders: permethrin topical, 1 mariposa, Topical, Once, 60 gram, Refill(s) 0, [employer] [facility], 177, cm, 04/08/24 13:20:00 EDT, Height/Length Dosing, 125.7, kg, 04/08/24 13:18:00 EDT, Weight Dosing Follow-up With When Contact Information Mara BEVERLY MD, [facility] [address] [id number]- Additional Instructions: Patient Education BMI for Adults Bedbugs, Zoqn-[id number] Problem List/Past Medical History Ongoing Allergic rhinitis due to pollen Asthma, moderate persistent Benign hypertension BMI 40.0-44.9, adult Class 2 severe obesity due to excess calories with serious comorbidity in adult Combined hyperlipidemia Depression, major, recurrent, in partial remission Detrusor instability of bladder Encounter for well adult exam with abnormal findings Fasting hyperglycemia GERD (gastroesophageal reflux disease) Gout Hypothyroidism, congenital Left lumbar radiculopathy Low serum vitamin D Migraine headache Moderate persistent asthma with exacerbation Osteoarthritis of left knee Personal history of colonic polyps Rotator cuff tear arthropathy of right shoulder Screening mammogram, encounter for Sore throat TMJ syndrome Well adult exam Historical Acid reflux Actinic keratosis of left cheek Allergic rhinitis Asthma Asthma Asthma Class 1 obesity due to excess calories in adul (more content not included)... Normal [facility] Comment on above: Result Comment: Elec tronically Signed By: JAM ZEPEDA, EMELYN\.br\Date and Time Signed: 04/08/24 15:40 EDT Patient Educationon 04-08-20 Patient Education Dermatology Bedbugs Bedbugs are tiny bugs that live in and around beds. During the day, they stay hidden. At night, they come out and bite. Where are bedbugs found? Bedbugs can be found anywhere. It does not matter if a place is clean or dirty. Bedbugs are found in: ? Hotels. ? Shelters. ? Dorms. ? Hospitals. ? Nursing homes. ? Places where there are many birds or bats. What are bedbug bites like? A bedbug bite makes a small red bump with a darker red dot in the middle. The bump may show soon after you are bitten or one or more days later. Bedbug bites usually do not hurt, but they may itch or cause an allergic reaction. You will need to get medical help if you have an allergic reaction. Most people do not need treatment for bedbug bites. The bumps usually go away on their own in a few days. If you have a lot of bedbug bites and they feel very itchy: ? Do not scratch the bite areas. ? You may put one of these on the bite area as told by your doctor: ? Baking soda paste, made by adding water to baking soda. ? Cortisone cream. ? Calamine lotion. How do I check for bedbugs? Adult bedbugs are reddish-brown, oval, and flat. They are very small, and they cannot fly. Young bedbugs are whitish-yellow and are smaller than adult bedbugs. Use a flashlight to look for bedbugs in these places: ? On mattresses, bed frames, headboards, and box springs. ? On drapes and curtains in bedrooms. ? Under the carpet in bedrooms. ? Behind electrical outlets. ? Behind any wallpaper that is peeling. ? Inside luggage. Also, look for black or red spots or stains on or near the bed. What should I do if I find bedbugs? When traveling ? Look over the room for the presence of bedbugs on items like the mattress, bedding, headboard, and luggage rack. You may want to use a flashlight. ? Use luggage racks to hold your luggage when packing or unpacking. ? Do not set luggage on the bed or the floor. ? Keep luggage away from the bed. ? Before you go back home, check your clothes, suitcase, and belongings for bedbugs. You may want to throw away anything that has bedbugs on it. ? When you get home, unpack directly into a washing machine and look at your luggage carefully. ? Put clothing in the dryer at a high temperature to kill any bedbugs. Generally, washing will not kill bedbugs. ? Store suitcases away from your bedroom, such as in the basement or garage. Never store suitcases under your bed. At home Your bedroom may need to be treated by a pest control expert. You may also need to throw away mattresses or luggage. To help stop bedbugs from coming back, you may want to: ? Wash your clothes and bedding in water that is hotter than 120?F (48.9?C). Dry them on a hot setting. ? Put a plastic cover over your mattress. ? When you sleep, wear pajamas that have long sleeves and pant legs. Bedbugs usually bite skin that is not covered. ? Vacuum often around the bed and in all of the cracks where the bugs might hide. ? Check all used furniture, bedding, or clothes that you bring into your home. ? Get rid of bird nests and bat roosts that are near your home. Where to find more information ? U.S. Environmental Protection Agency (EPA): epa.gov/bedbugs Contact a doctor if: ? You have more redness, swelling, or pain at the bite area. ? You have pus or a bad smell coming from the bite area. ? The bite area feels warm to the touch. Get help right away if: ? You have signs of a very bad allergic reaction (anaphylactic reaction). These may include: ? Swelling of your eyes, lips, face, mouth, tongue, or throat. ? Feeling coremaker machine the face. ? Itchy, red, swollen areas of skin. ? Trouble with breathing, talking, or swallowing. ? High-pitched whistling sounds, most often when breathing out. ? Feeling dizzy or light-headed. ? Fainting. These symptoms may be an emergency. Do not wait to see if the symptoms will go away. Get help right away. Call 911. Summary ? Bedbugs are tiny bugs that live in and around beds. ? Bedbugs are often found in hotels, shelters, dorms, hospitals, and nursing homes. ? A bedbug bite makes a small red bump with a darker red dot in the middle. ? Bedbug bites usually do not hurt, but they may itch or cause an allergic reaction. You will need to get medical help if you have an allergic reaction. ? If you find bedbugs at home, your bedroom may need to be treated by a pest control expert. This information is not intended to replace advice given to you by your health care provider. Make sure you discuss any questions you have with your health care provider. Document Revised: 12/26/2022 Document Reviewed: 12/21/2022 [employer] Patient Education ? 2022 [employer] Nutrition BMI for Adults What is BMI? Body mass index (BMI) is a number that is calculated from a person's weight and height. BMI can help estimate how much of a person' (more content not included)... Normal [facility] Discharge Instructionson Discharge Instructions [id number] Normal [facility] ED Clinical Summaryon 2023 ED Clinical Summary [address] [address] ED Clinical Summary Person Information Name: LEVI SOFIA Anneliese/[facility] Age: 64 Years : 1960 Sex: Female Language: Turkish PCP: Mara BEVERLY MD Marital Status: Visit Id: Visit Reason: Shortness of breath; Respiratory problem; Cough; TROUBLE BREATHING Speciality: Acuity: 3 Enc Type: Emergency Med Service: Emergency Arrival: 03/24/2024 22:39:26 Discharge: 03/25/2024 00:55:53 LOS: 000 02:16 Checkin: 03/24/2024 22:39:26 Checkout: 03/25/2024 00:55:53 Dispo Type: Home (Routine DC) EVENTS: Event Name Event Status Request Date/Time Start Date/Time Complete Date/Time Arrive Complete 03/24/2024 22:39:26 03/24/2024 22:39:26 03/24/2024 22:39:26 Document Home Meds Request 03/24/2024 22:39:26 Triage Complete 03/24/2024 22:39:26 03/24/2024 22:52:40 03/24/2024 22:52:40 Bed Assign Complete 03/24/2024 22:44:11 03/24/2024 22:44:11 03/24/2024 22:44:11 Dr Exam Complete 03/24/2024 22:44:11 03/24/2024 22:57:07 03/24/2024 22:57:07 RN Exam Complete 03/24/2024 22:44:11 03/24/2024 22:54:20 03/24/2024 22:54:20 EKG Complete 03/24/2024 22:44:20 03/24/2024 22:48:17 Registration Complete 03/24/2024 22:49:55 03/24/2024 22:49:55 03/24/2024 22:49:55 Reg Complete Request 03/24/2024 22:49:55 Reg Bed Request Complete 03/24/2024 22:49:55 03/24/2024 22:49:55 03/24/2024 22:49:55 Fall Risk Request 03/24/2024 22:54:21 Registration Request 03/24/2024 22:57:07 Pending Labs Complete 03/24/2024 22:58:16 03/25/2024 00:37:38 Lab Complete 03/24/2024 22:58:16 03/24/2024 23:36:07 Patient Care Request 03/24/2024 22:58:16 RT Request 03/24/2024 22:58:16 X-Ray Complete 03/24/2024 22:58:16 03/24/2024 23:02:30 03/24/2024 23:19:31 Swab Complete 03/24/2024 22:58:16 03/24/2024 23:28:40 Meds Admin Complete 03/24/2024 23:02:50 03/24/2024 23:16:27 RT Tx/ABG Complete 03/24/2024 23:02:50 03/24/2024 23:38:28 03/24/2024 23:38:28 RT Tx/ABG Complete 03/24/2024 23:02:51 03/24/2024 23:38:21 03/24/2024 23:38:21 RT Tx/ABG Complete 03/24/2024 23:02:51 03/24/2024 23:38:32 03/24/2024 23:38:32 RT Tx/ABG Complete 03/24/2024 23:02:51 03/24/2024 23:38:17 03/24/2024 23:38:17 Pending Labs Complete 03/24/2024 23:06:09 03/24/2024 23:06:09 03/24/2024 23:36:07 Lab Complete 03/24/2024 23:06:09 03/24/2024 23:06:09 03/24/2024 23:36:07 Wet Read Request 03/24/2024 23:19:31 Discharge Complete 03/25/2024 00:43:03 03/25/2024 00:56:05 03/25/2024 00:56:05 Transfer Complete 03/25/2024 00:56:05 03/25/2024 00:56:05 03/25/2024 00:56:05 ADDRESS: [address] [id number] PHYS DOC NOTES: MEDICAL INFORMATION: Prescriptions Given: [facility], [address], [place] [id number], [phone] brompheniramine/dex tromethorphan/PSE (Bromfed DM oral syrup) 5 Milliliter By Mouth 4 times a day as needed for cough and congestion. Refills: 0. Medications to Continue with No Changes Other Medications albuterol (albuterol 0.083% Inh Mamie 3 mL) 0.083% - 3mL dosing units Inhalation every 4 hours as needed as needed for wheezing. Refills: 0. docusate (Colace 100 mg Cap) 1 Capsules By Mouth 2 times a day. Refills: 0. multivitamin (Daily Multiple Vitamins) 1 Tablets By Mouth every day. PATIENT EDUCATION INFORMATION: Instructions: Asthma, Adult Follow up: With: Address: When: Mara BEVERLY [facility] [address] [id number] Business (1) In 3 days DIAGNOSIS: Asthma exacerbation Normal [facility] ED Note-Physicianon 03-25-20 ED Note-Physician Basic Information Time Seen: Yuniel Ocasio DO 03/24/2024 22:57 Chief Complaint harsh cough since the . has done two rounds of steriods. zpak and started on cefdinir today. taking breathing tx with minimal relief. History of Present Illness HPI: Patient is a 64-year-old female with past medical history of asthma, hypertension, hyperlipidemia, depression, GERD, gout, hypothyroidism, migraines who presents the ED for cough and shortness of breath. Patient states that she has had this going on for the past 2 weeks. She states that her primary care physician has given her 2 different rounds of steroids and a Z-Judah and then today started her on cefdinir. She states the cough seems to have slightly improved but she still feels like she has mucus in her chest and is having trouble breathing. She denies any fever or chills. She denies any nausea vomiting or diarrhea. ROS: Pertinent review of systems conducted and is negative except as noted above. Physical exam: General: nontoxic appearing and in no distress HEENT: Mucous membranes moist Neuro: awake and alert Neck: supple, trachea midline Card: Heart regular rate and rhythm no murmur Resp: Lungs with end expiratory wheeze and scattered rhonchi in all lung rizvi Abd: Soft and nondistended. No tenderness to palpation with no rebound or guarding. Ext: No gross deformity or edema Physical Exam Vitals & Measurements T: 36.8 ?C(Oral) HR: 86(Peripheral) RR: 24 BP: 151/75 SpO2: 99% HT: 177 cm WT: 128 kg BMI: 40.86 Medical Decision Making MEDICAL DECISION MAKING Number and Complexity of Problems Differential Diagnosis: [] [facility] Data External documents reviewed: N/A My EKG interpretation: Noted in chart if applicable My CT interpretation: N/A My X-ray interpretation: Noted in chart if applicable My Ultrasound interpretation: N/A Decision rules/scores evaluated: N/A Discussed with: N/A Treatment and Disposition ED Course: Patient is nontoxic-appearing in no distress. She does have some scattered rhonchi and wheezing but is saturating at 99% on room air with no increased work of breathing. Will obtain a chest x-ray, blood work, EKG, and viral swabs. Workup shows a mildly cytosis likely from the outpatient steroid use. X-ray shows no acute pneumonia. I discussed with the patient the results of her lab work and imaging. At this time I feel she is stable for discharge. She is already taking an antibiotic from her primary care physician and is finishing a course of steroids. Will add a prescription for oral Bromfed as necessary. She will continue oral hydration and follow-up with her primary care physician on an outpatient basis. Shared decision making: As above Code status: N/A Assessment/Plan Asthma exacerbation (J45.901: Unspecified asthma with (acute) exacerbation) Orders: albuterol, 2.5 mg, 3 mL, Soln-Inh, NEB, Once, Stop date 03/24/24 23:02:00 EDT, STAT, Start date 03/24/24 23:02:00 EDT albuterol-ipratropi um, 3 mL, Soln-Inh, NEB, Once, Stop date 03/24/24 23:02:00 EDT, STAT, Start date 03/24/24 23:02:00 EDT brompheniramine/dex tromethorphan/PSE, 5 mL, Oral, QID for cough and congestion, 200 mL, Refill(s) 0, Soapbox #37, 177, cm, 03/24/24 22:52:00 EDT, Height/Length Dosing, 128, kg, 03/24/24 22:52:00 EDT, Weight Dosing B-Type Natriuretic Peptide Basic Metabolic Panel CBC w/ Auto Diff ECG 12 Lead Adult ED Cardiac Monitoring eGFR Influenza A&B Ag Oxygen Saturation Oxygen Therapy PT & PTT Rapid COVID Antigen ([facility]) Saline Lock Insert Troponin 0 Hr. Troponin 1 Hr. XR Chest Single View Medications Administered Given albuterol 0.083% Inh Mamie 3 mL, 2.5 mg, NEB albuterol-ipratropi um Inh Mamie 3 mL UD, 3 mL, NEB Disposition Plan Discharge Prescription List Prescriptions Bromfed DM oral syrup, 5 mL, Oral, QID, PRN cefdinir 300 mg Cap, 300 mg= 1 cap(s), Oral, BID fluconazole 150 mg Tab, 150 mg= 1 tab(s), Oral, Once Follow-up With When Contact Information Mara BEVERLY In 3 days [address] [id number] [facility] (1) Additional Instructions: Patient Education Asthma, Adult Problem List/Past Medical History Ongoing Allergic rhinitis due to pollen Asthma, moderate persistent Benign hypertension BMI 40.0-44.9, adult Class 2 severe obesity due to excess calories with serious comorbidity in adult Combined hyperlipidemia Depression, major, recurrent, in partial remission Detrusor instability of bladder Encounter for well adult exam with abnormal findings Fasting hyperglycemia GERD (gastroesophageal reflux disease) Gout Hypothyroidism, congenital Left lumbar radiculopathy Low serum vitamin D Migraine headache Moderate persistent asthma with exacerbation Osteoarthritis of left knee Personal history of colonic polyps Rotator cuff tear arthropathy of right shoulder Screening mammogram, encounter for Sore throat TMJ syndrome Well adult exam Histor (more content not included)... Normal [facility] Comment on above: Result Comment: Trevor kurt Signed By: Yuniel Ocasio DO\.br\Date and Time Signed: 03/25/24 00:44 EDT ED Patient Education Noteon 03-25-2024 ED Patient Education Note Pulmonary Medicine Asthma, Adult Asthma is a long-term (chronic) condition that causes recurrent episodes in which the lower airways in the lungs become tight and narrow. The narrowing is caused by inflammation and tightening of the smooth muscle around the lower airways. Asthma episodes, also called asthma attacks or asthma flares, may cause coughing, making high-pitched whistling sounds when you breathe, most often when you breathe out (wheezing), shortness of breath, and chest pain. The airways may produce extra mucus caused by the inflammation and irritation. During an attack, it can be difficult to breathe. Asthma attacks can range from minor to life-threatening. Asthma cannot be cured, but medicines and lifestyle changes can help control it and treat acute attacks. It is important to keep your asthma well controlled so the condition does not interfere with your daily life. What are the causes? This condition is believed to be caused by inherited (genetic) and environmental factors, but its exact cause is not known. What can trigger an asthma attack? Many things can bring on an asthma attack or make symptoms worse. These triggers are different for every person. Common triggers include: ? Allergens and irritants like mold, dust, pet dander, cockroaches, pollen, air pollution, and chemical odors. ? Cigarette smoke. ? Weather changes and cold air. ? Stress and strong emotional responses such as crying or laughing hard. ? Certain medications such as aspirin or beta blockers. ? Infections and inflammatory conditions, such as the flu, a cold, pneumonia, or inflammation of the nasal membranes (rhinitis). ? Gastroesophageal reflux disease (GERD). What are the signs or symptoms? Symptoms may occur right after exposure to an asthma trigger or hours later and can vary by person. Common signs and symptoms include: ? Wheezing. ? Trouble breathing (shortness of breath). ? Excessive nighttime or research group director coughing. ? Chest tightness. ? Tiredness (fatigue) with minimal activity. ? Difficulty talking in complete sentences. ? Poor exercise tolerance. How is this diagnosed? This condition is diagnosed based on: ? A physical exam and your medical history. ? Tests, which may include: ? Lung function studies to evaluate the flow of air in your lungs. ? Allergy tests. ? Imaging tests, such as X-rays. How is this treated? There is no cure, but symptoms can be controlled with proper treatment. Treatment usually involves: ? Identifying and avoiding your asthma triggers. ? Inhaled medicines. Two types are commonly used to treat asthma, depending on severity: ? Controller medicines. These help prevent asthma symptoms from occurring. They are taken every day. ? Fast-acting reliever or rescue medicines. These quickly relieve asthma symptoms. They are used as needed and provide short-term relief. ? Using other medicines, such as: ? Allergy medicines, such as antihistamines, if your asthma attacks are triggered by allergens. ? Immune medicines (immunomodulators). These are medicines that help control the immune system. ? Using supplemental oxygen. This is only needed during a severe episode. ? Creating an asthma action plan. An asthma action plan is a written plan for managing and treating your asthma attacks. This plan includes: ? A list of your asthma triggers and how to avoid them. ? Information about when medicines should be taken and when their dosage should be changed. ? Instructions about using a device called a peak flow meter. A peak flow meter measures how well the lungs are working and the severity of your asthma. It helps you monitor your condition. Follow these instructions at home: ? Take jzyy-hhj-kqbsijb and prescription medicines only as told by your health care provider. ? Stay up to date on all vaccinations as recommended by your healthcare provider, including vaccines for the flu and pneumonia. ? Use a peak flow meter and keep track of your peak flow readings. ? Understand and use your asthma action plan to address any asthma flares. ? Do not smoke or allow anyone to smoke in your home. Contact a health care provider if: ? You have wheezing, shortness of breath, or a cough that is not responding to medicines. ? Your medicines are causing side effects, such as a rash, itching, swelling, or trouble breathing. ? You need to use a reliever medicine more than 2?3 times a week. ? Your peak flow reading is still at 50?79% of your personal best after following your action plan for 1 hour. ? You have a fever and shortness of breath. Get help right away if: ? You are getting worse and do not respond to treatment during an asthma attack. ? You are short of breath when at rest or when doing very little physical activity. ? You have difficulty eating, drinking, or talking. ? You have chest pain or tightness. ? You develop a fast heartbeat or palpitations. ? You (more content not included)... Normal [facility] ED Patient Summaryon 024 ED Patient Summary [address] [address] Patient Discharge Instructions Person Information Name: LEVI SOFIA Age: 64 Years Arrival Date: 03/24/2024 22:39:26 Discharge Diagnosis: Asthma exacerbation Primary Care Physician: Mara BEVERLY MD Provider Information Primary Provider: Yuniel Ocasio DO Advanced Petroleum Plant Operator:None The exam and treatment you received in the Emergency Department were for an urgent problem and are not intended as complete care. It is important that you follow up with a doctor, nurse practitioner, or physician?s power plant assistant for ongoing care. If your symptoms become worse or you do not improve as expected and you are unable to reach your usual health care provider, you should return to the Emergency Department. We are available 24 hours a day. LEVI SOFIA has been given the following list of patient education materials, prescriptions and follow-up instructions: Follow-up Instructions: With: Address: When: Mara BEVERLY [address] [place] [address] Business (1) In 3 days In the event that this physician does not participate in your insurance network, please consult with your insurance company to find a nearby participating provider. Patient Education Materials: Asthma, Adult A MESSAGE TO ALL PATIENTS REGARDING OPIOIDS PRESCRIPTION OPIOIDS: WHAT YOU NEED TO KNOW Prescription opioids can be used to help relieve htfzqefu-rs-tukcdj pain and are often prescribed following a surgery or injury, or for certain health conditions. These medications can be an important part of the treatment but also come with serious risks. It is important to work with your healthcare provider to make sure you are getting the safest, most effective care. WHAT ARE THE RISKS AND SIDE EFFECTS OF OPIOID USE? Prescription opioids carry serious risks of addiction and overdose, especially with prolonged use. An opioid overdose, often marked by slowed breathing, can cause sudden . The use of prescription opioids can have a number of side effects as well, even when taken as directed: ? Tolerance?meaning you might need to take more of the medication for the same pain relief ? Physical dependence?meaning you have symptoms of withdrawal when a medication is stopped ? Increased sensitivity to pain ? Constipation ? Nausea, vomiting, and dry mouth ? Sleepiness and dizziness ? Confusion ? Depression ? Low levels of testosterone that can result in lower sex drive, energy, and strength ? Itching and sweating RISKS ARE GREATER WITH: ? History of drug misuse, substance use disorder, or overdose ? Mental health conditions (such as depression or anxiety) ? Sleep apnea ? Older age (65 years and older) ? Avoid alcohol while taking prescription opioids. Also, unless specifically advised by your health care provider, medications to avoid include: ? Benzodiazepines (such as Xanax or Valium) ? Muscle relaxants (such as Soma or Flexeril) ? Hypnotics (such as Ambien or Lunesta) ? Other prescription opioids KNOW YOUR OPTIONS Talk to your health care provider about ways to manage your pain that don?t involve prescription opioids. Some of these options may actually work better and have fewer risks and side effects. Options may include: ? Pain relievers such as acetaminophen, ibuprofen, and naproxen ? Some medication that are also used for depression or seizures ? Physical therapy and exercise ? Cognitive behavioral therapy, a psychological, goal-directed approach, in which patients learn how to modify physical, behavioral, and emotional triggers of pain and stress. IF YOU ARE PRESCRIBED OPIOIDS FOR PAIN: ? Never take opioids in greater amounts or more often than prescribed. ? Follow up with your primary health care provider. o Work together to create a plan on how to manage your pain. o Talk about ways to help manage your pain that don?t involve prescription opioids. o Talk about any and all concerns and side effects. ? Help prevent misuse and abuse o Never sell or share prescription opioids. o Never use another person?s prescription opioids. ? Store prescription opioids in a secure place and out of reach of others (this may include visitors, children, friends, and family). ? Safely dispose of unused prescription opioids: Find your community drug take-back program or your pharmacy mail-back program, or flush them down the toilet, following guidance from the Food and Drug Administration (www.fda.gov/Drugs/ ResourcesForYou). ? Visit www.cdc.gov/drugove rdose to learn about the risks of opioids abuse and overdose. ? If you believe you may be struggling with addiction, tell your health daycare worker and ask for guidance or call [facility]?S National Helpline at 8-998-408-BQUT. l Source: [place] Department of Health and Human Services (more content not included)... Normal [facility] Troponin 1 Hr.Ordered By: [employer] on 03-25-2024 Troponin HS 2.90 pg/mL Low 10.10-27.10 [facility] Comment on above: Interpretive Data: T he 95% CI (Confidence Interval) PPV (Positive Predictive Value) for myocardial infarction in females is 38 pg/mL, in males 51 pg/mL. The results should be used in conjunction with clinical conditions of myocardial infarction. ([employer] High Sensitivity Troponin I Instructions For Use, [employer], May 2018) Order Comment: 1hr d raw @ :02 Result Comment: The 95% CI (Confidence Interval) PPV (Positive Predictive Value) for myocardial infarction in females is 38 pg/mL, in males 51 pg/mL. The results should be used in conjunction with clinical conditions of myocardial infarction. ([employer] High Sensitivity Troponin I Instructions For Use, [employer], May 2018) Performed By: #### 1 [id number] #### [facility] [address] [place] [address] XR Chest Single Viewon 03-25 XR Chest Single View Exam Date/Time: 03/24/2024 23:19 EDT Reason for Exam: Chest pain Report IMPRESSION: NO EVIDENCE OF ACTIVE CHEST DISEASE. CLINICAL HISTORY: Chest pain. Cough. COMPARISON: 09/26/2022. COMMENT: AP portable. The heart is normal in size. The mediastinum is unremarkable. The lungs appear clear. No infiltration nor pleural effusion is evident. No significant change is noted when compared to the prior exam. Ordering Provider: Yuniel Ocasio FINAL REPORT Dictated: 03/25/2024 7:55 am Christian Wong M.D. Signed (Electronic Signature): 03/25/2024 7:55 am Signed by: Christian Wong M.D. Transcribed by: HENRIETTA Technologist: ALEXEY Technical Comments Radiation Dose: Ka,r in mGy = na DAP = na Normal [facility] BMPon 03-24-2024 Anion gap [Moles/Vol] 15 mmol/L Normal 6-16 [facility] Comment on above: Performed By: #### 2 [id number] #### [facility] [address] [place] [address] Calcium [Mass/Vol] 9.4 mg/dL Normal 8.9-11.1 [facility] Comment on above: Performed By: #### 2 [id number] #### [facility] [address] [place] [address] Chloride [Moles/Vol] 99 mmol/L Low 101-111 [facility] Comment on above: Performed By: #### 2 [id number] #### [facility] [address] [place] [address] CO2 [Moles/Vol] 25 mmol/L Normal 21-31 [facility] Comment on above: Performed By: #### 2 [id number] #### [facility] [address] [place] [address] Creatinine [Mass/Vol] 1.3 mg/dL Normal 0.5-1.3 [facility] Comment on above: Performed By: #### 2 [id number] #### [facility] [address] [place] [address] Glucose [Mass/Vol] 146 mg/dL Normal 55-199 [facility] Comment on above: Performed By: #### 2 [id number] #### [facility] [address] [place] [address] Potassium [Moles/Vol] 4.0 mmol/L Normal 3.5-5.3 [facility] Comment on above: Performed By: #### 2 [id number] #### [facility] [address] [place] [address] Sodium [Moles/Vol] 135 mmol/L Normal 135-145 [facility] Comment on above: Performed By: #### 2 [id number] #### [facility] [address] [place] [address] Urea nitrogen [Mass/Vol] 40 mg/dL High 5-21 [facility] Comment on above: Performed By: #### 2 [id number] #### [facility] [address] [place] [address] Urea nitrogen/Creatinine [Mass ratio] 31 No Units High 10-20 [facility] Comment on above: Performed By: #### 2 [id number] #### [facility] [address] [place] [address] BNPon 4 Natriuretic peptide B (Bld) [Mass/Vol] 14 pg/mL Normal 5-80 [facility] Comment on above: Performed By: #### 1 [id number] #### [facility] [address] [place] [address] CBC w/ Auto Diffon 4 Basophils/100 WBC (Bld) 0.7 % Normal 0.0-2.0 [facility] Comment on above: Performed By: #### 2 [id number] #### [facility] [address] [place] [address] Basophils/Leukocyte s Auto (Bld) [Pure # fraction] 0.1 E9/L Normal 0.0-0.2 [facility] Comment on above: Performed By: #### 2 [id number] #### [facility] [address] [place] [address] Eosinophils (Bld) [#/Vol] 0.1 E9/L Normal 0.0-0.5 [facility] Comment on above: Performed By: #### 2 [id number] #### [facility] [address] [place] [address] Eosinophils/100 WBC (Bld) 0.4 % Normal 0.0-8.0 [facility] Comment on above: Performed By: #### 2 [id number] #### [facility] [address] [place] [address] Erythrocyte distribution width (RBC) [Ratio] 14.7 % High 10.9-14.2 [facility] Comment on above: Performed By: #### 2 [id number] #### [facility] [address] [place] [address] Hematocrit (Bld) [Volume fraction] 39.6 % Normal 34.0-46.0 [facility] Comment on above: Performed By: #### 2 [id number] #### [facility] [address] [place] [address] Hemoglobin (Bld) [Mass/Vol] 13.2 g/dL Normal 12.0-16.0 [facility] Comment on above: Performed By: #### 2 [id number] #### [facility] [address] [place] [address] Lymphocytes (Bld) [#/Vol] 2.6 E9/L Normal 1.0-4.0 [facility] Comment on above: Performed By: #### 2 [id number] #### [facility] [address] [place] [address] Lymphocytes/100 WBC (Bld) 16.3 % Normal 14.0-50.0 [facility] Comment on above: Performed By: #### 2 [id number] #### [facility] [address] [place] [address] MCH (RBC) [Entitic mass] 30.7 pg Normal 27.0-34.0 [facility] Comment on above: Performed By: #### 2 [id number] #### [facility] [address] [place] [address] MCHC (RBC) [Mass/Vol] 33.3 g/dL Normal 31.4-36.0 [facility] Comment on above: Performed By: #### 2 [id number] #### [facility] [address] [place] [address] MCV (RBC) [Entitic vol] 92.3 fL Normal 80.0-100.0 [facility] Comment on above: Performed By: #### 2 [id number] #### [facility] [address] [place] [address] Monocytes (Bld) [#/Vol] 1.0 E9/L Normal 0.2-1.0 [facility] Comment on above: Performed By: #### 2 [id number] #### [facility] [address] [place] [address] Neutrophils (Bld) [#/Vol] 12.1 E9/L High 2.0-7.5 [facility] Comment on above: Performed By: #### 2 [id number] #### [facility] [address] [place] [address] Neutrophils/100 WBC (Bld) 76.0 % High 36.0-75.0 [facility] Comment on above: Performed By: #### 2 [id number] #### [facility] [address] [place] [address] Platelet mean volume (Bld) [Entitic vol] 7.5 fL Normal 6.4-10.8 [facility] Comment on above: Performed By: #### 2 [id number] #### [facility] [address] [place] [address] Platelets (Bld) [#/Vol] 194.0 E9/L Normal 150.0-500.0 [facility] Comment on above: Performed By: #### 2 [id number] #### [facility] [address] [place] [address] RBC (Bld) [#/Vol] 4.3 E12/L Normal 4.3-5.9 [facility] Comment on above: Performed By: #### 2 [id number] #### [facility] [address] [place] [address] WBC corrected for nucl RBC Auto (Bld) [#/Vol] 15.9 E9/L High 4.0-11.0 [facility] Comment on above: Performed By: #### 2 [id number] #### [facility] [address] [place] [address] CHEMISTRYOrdered By: [employer] SYSTEM on 03-24-2024 Anion gap [Moles/Vol] 15 mmol/L Normal 6 - 16 mEq/L [facility] Calcium [Mass/Vol] 9.4 mg/dL Normal 8.9 - 11.1 mg/dL [facility] Chloride [Moles/Vol] 99 mmol/L Low 101 - 111 mmol/L [facility] CO2 [Moles/Vol] 25 mmol/L Normal 21 - 31 mmol/L [facility] Creatinine [Mass/Vol] 1.3 mg/dL Normal 0.5 - 1.3 mg/dL [facility] eGFR 46 mL/min/1.73 m2 Low >=59mL/min/1.73 m2 [facility] Glucose [Mass/Vol] 146 mg/dL Normal 55 - 199 mg/dL Re misol Chem Potassium [Moles/Vol] 4.0 mmol/L Normal 3.5 - 5.3 mmol/L [facility] Sodium [Moles/Vol] 135 mmol/L Normal 135 - 145 mmol/L [facility] Troponin HS 4.00 pg/mL Low 10.10 - 27.10 pg/mL [facility] Comment on above: Interpretive Data: T he 95% CI (Confidence Interval) PPV (Positive Predictive Value) for myocardial infarction in females is 38 pg/mL, in males 51 pg/mL. The results should be used in conjunction with clinical conditions of myocardial infarction. ([employer] High Sensitivity Troponin I Instructions For Use, Yaima Edward, May 2018) Urea nitrogen [Mass/Vol] 40 mg/dL High 5 - 21 mg/dL [facility] Urea nitrogen/Creatinine [Mass ratio] 31 mg/mg High 10 - 20 [facility] CHEMISTRYOrdered By: Caroline Avila on 03-24-2024 Natriuretic peptide B (Bld) [Mass/Vol] 14 pg/mL Normal 5 - 80 pg/mL [facility] COAGULATIONOrdered By: Raeann Avila on 03-24-2024 aPTT Coag (PPP) [Time] 29.2 s Normal 25.1 - 36.5 second(s) [facility] Auto Coag Comment on above: Interpretive Data: P arameter 15 days - 4 weeks 1 - 5 months 6 - 11 months 1 - 5 years 6 - 10 years 11 - 17 years PTT Mean: 35.4 (27.6-45.6) Mean: 33.5 (24.8-40.7) Mean: 32.4 (25.1-40.7) Mean: 31.6 (24.0-39.2) Mean: 31.6 (26.9-38.7) Mean: 31.0 (24.6-38.4) Pediatric Reference ranges were obtained from a study by kay Mcgarry alManjinder prepared from 1437 samples obtained at 7 different centers using the same coagulation reagent and instrumentation as [facility]. Currently there are no coagulation studies available worldwide for children to 14 days, and no normal ranges. Heparin therapeutic range (represented by Anti-Factor Xa activity of 0.2 - 0.4 U/mL) corresponds to PTT of 56.6 - 109.0 sec. INR Coag (PPP) [Relative time] 0.95 {INR} Invalid Interpretation Code [facility] Auto Coag Comment on above: Interpretive Data: I NR results are specifically intended to assess patients stabilized on long-term Anticoagulation therapy suggested INR s Less Intensive Anticoagulation 2.0 3.0 Conventional Range 3.0 4.5 PT Coag (PPP) [Time] 10.6 s Normal 9.4 - 12.5 second(s) [facility] Auto Coag Comment on above: Interpretive Data: 1 5 days - 4 weeks 1 - 5 months 6 -11 months 1-5 years 6-10 years 11 -17 years Mean: 11.2 (9.5-12.6) Mean: 11.0 (9.7-12.8) Mean: 11.0 (9.8-13.0) Mean: 11.3 (9.9-13.4) Mean: 11.7 (10.0-14.6) Mean: 11.8 (10.0 - 14.1) Pediatric Reference ranges were obtained from a study by kay Mcgarry alManjinder prepared from 1437 samples obtained at 7 different centers using the same coagulation reagent and instrumentation as [facility]. Currently there are no coagulation studies available worldwide for children to 14 days, and no normal ranges. Consent for Treatmenton Consent for Treatment [id number]#1.00TIFF Normal [facility] HEMATOLOGYOrdered By: SYSTEM SYSTEM on 03-24-2024 Basophils/100 WBC (Bld) 0.7 % Normal 0.0 - 2.0 % [facility] Basophils/Leukocyte s Auto (Bld) [Pure # fraction] 0.1 E9/L Normal 0.0 - 0.2 E9/L [facility] Eosinophils (Bld) [#/Vol] 0.1 E9/L Normal 0.0 - 0.5 E9/L [facility] Eosinophils/100 WBC (Bld) 0.4 % Normal 0.0 - 8.0 % [facility] Erythrocyte distribution width (RBC) [Ratio] 14.7 % High 10.9 - 14.2 % [facility] Hematocrit (Bld) [Volume fraction] 39.6 % Normal 34.0 - 46.0 % [facility] Hemoglobin (Bld) [Mass/Vol] 13.2 g/dL Normal 12.0 - 16.0 gm/dL [facility] Lymphocytes (Bld) [#/Vol] 2.6 E9/L Normal 1.0 - 4.0 E9/L [facility] Lymphocytes/100 WBC (Bld) 16.3 % Normal 14.0 - 50.0 % [facility] MCH (RBC) [Entitic mass] 30.7 pg Normal 27.0 - 34.0 pg [facility] MCHC (RBC) [Mass/Vol] 33.3 g/dL Normal 31.4 - 36.0 gm/dL [facility] MCV (RBC) [Entitic vol] 92.3 fL Normal 80.0 - 100.0 fL [facility] Monocytes (Bld) [#/Vol] 1.0 E9/L Normal 0.2 - 1.0 E9/L [facility] Monocytes/100 WBC (Bld) 6.6 % Normal 4.0 - 14.0 % [facility] Neutrophils (Bld) [#/Vol] 12.1 E9/L High 2.0 - 7.5 E9/L [facility] Neutrophils/100 WBC (Bld) 76.0 % High 36.0 - 75.0 % [facility] Platelet mean volume (Bld) [Entitic vol] 7.5 fL Normal 6.4 - 10.8 fL [facility] Platelets (Bld) [#/Vol] 194.0 E9/L Normal 150.0 - 500.0 E9/L [facility] RBC (Bld) [#/Vol] 4.3 E12/L Normal 4.3 - 5.9 E12/L Re misol Heme WBC corrected for nucl RBC Auto (Bld) [#/Vol] 15.9 E9/L High 4.0 - 11.0 E9/L Remisol Heme Influenza A&B Agon Influenzae A Ag Negative Normal Negative [facility] Comment on above: Performed By: #### 1 [id number] #### [facility] [address] [place] [address] Influenzae B Ag Negative Normal Negative [facility] Comment on above: Result Comment: Test sensitivity and specificity vary for age group, specimen type, antigen types, and prevalence of disease. Test results must be evaluated in conjunction with other clinical data available to the physician. Individuals who received nasally administered Influenza A vaccine may have positive test results up to 3 days after vaccination. Performed By: #### 1 [id number] #### [facility] [address] [place] [address] MICRO OTHER TESTSOrdered By: Caroline Avila on 03-24-2024 Influenzae A Ag Negative (03/24/24 11:05 PM) Normal Negative [facility] Influenzae B Ag Negative 1 (03/24/24 11:05 PM) Normal Negative [facility] Comment on above: Interpretive Data: T est sensitivity and specificity vary for age group, specimen type, antigen types, and prevalence of disease. Test results must be evaluated in conjunction with other clinical data available to the physician. Individuals who received nasally administered Influenza A vaccine may have positive test results up to 3 days after vaccination. Rapid COV Int NEG Ctl Pass (03/24/24 11:05 PM) Normal [facility] Rapid COV Int POS Ctl Pass (03/24/24 11:05 PM) Normal [facility] SARS-CoV+SARS-CoV-2 (COVID-19) Ag IA.rapid Ql (Resp) Not Detected 7 (03/24/24 11:05 PM) Normal Not Detected [facility] Comment on above: Interpretive Data: Edgar he DataParenting System for Rapid Detection of SARS-CoV-2 is a chromatographic digital immunoassay intended for the direct and qualitative detection of SARS-CoV-2 nucleocapsid antigens in nasal swabs from individuals who are suspected of COVID-19 by their healthcare provider within the first five days of the onset of symptoms. Negative results should be treated as presumptive, do not rule out SARS-CoV-2 infection and should not be used as the sole basis for treatment or patient management decisions, including infection control decisions. Negative results should be considered in the context of a patient s recent exposures, history and the presence of clinical signs and symptoms consistent with COVID-19, and confirmed with a molecular assay, if necessary, for patient management. For in vitro diagnostic use. In the [place], only for use under an Emergency Use Authorization. In the [place], this test has not been FDA cleared or approved; this test has been authorized by FDA under an EUA for use by authorized laboratories; use by laboratories certified under the CLIA, 42 U.S.C. 263a, that meet requirements to perform moderate, high, or waived complexity tests and at the Point of Care (POC), i.e., in patient care settings operating under a CLIA Certificate of Waiver, Certificate of Compliance, or Certificate of Accreditation. This test has been authorized only for the detection of proteins from SARS-CoV-2, not for any other viruses or pathogens; and, in the [place], this test is only authorized for the duration of the declaration that circumstances exist justifying the authorization of emergency use of in vitro diagnostics for detection and/or diagnosis of the virus that causes COVID-19 under Section 564(b)(1) of the Act, 21 U.S.C. 360bbb-3(b)(1), unless the authorization is terminated or revoked sooner. PT & PTTon 03-24-2024 aPTT Coag (PPP) [Time] 29.2 second(s) Normal 25.1-36.5 [facility] Comment on above: Result Comment: Para meter 15 days - 4 weeks 1 - 5 months 6 - 11 months 1 - 5 years 6 - 10 years 11 - 17 years PTT Mean: 35.4 (27.6-45.6) Mean: 33.5 (24.8-40.7) Mean: 32.4 (25.1-40.7) Mean: 31.6 (24.0-39.2) Mean: 31.6 (26.9-38.7) Mean: 31.0 (24.6-38.4) Pediatric Reference ranges were obtained from a study by saray Mcgarry. prepared from 1437 samples obtained at 7 different centers using the same coagulation reagent and instrumentation as [facility]. Currently there are no coagulation studies available worldwide for children to 14 days, and no normal ranges. Heparin therapeutic range (represented by Anti-Factor Xa activity of 0.2 - 0.4 U/mL) corresponds to PTT of 56.6 - 109.0 sec. Performed By: #### 1 [id number] #### [facility] [address] [place] [address] INR Coag (PPP) [Relative time] 0.95 {INR} Invalid Interpretation Code [facility] Comment on above: Result Comment: INR results are specifically intended to assess patients stabilized on long-term Anticoagulation therapy suggested INR?s ?Less Intensive Anticoagulation? 2.0 ? 3.0 Conventional Range 3.0 ? 4.5 Performed By: #### 1 [id number] #### [facility] [address] [place] [address] PT Coag (PPP) [Time] 10.6 second(s) Normal 9.4-12.5 [facility] Comment on above: Result Comment: 15 d ays - 4 weeks 1 - 5 months 6 -11 months 1- 5 years 6-10 years 11 -17 years Mean: 11.2 (9.5-12.6) Mean: 11.0 (9.7-12.8) Mean: 11.0 (9.8-13.0) Mean: 11.3 (9.9-13.4) Mean: 11.7 (10.0-14.6) Mean: 11.8 (10.0 - 14.1) Pediatric Reference ranges were obtained from a study by mojgan Mcgarry prepared from 1437 samples obtained at 7 different centers using the same coagulation reagent and instrumentation as [facility]. Currently there are no coagulation studies available worldwide for children to 14 days, and no normal ranges. Performed By: #### 1 [id number] #### [facility] [address] [place] [address] Rapid COVID Antigen ([facility])on 03-24-2024 Rapid COV Int NEG Ctl Pass Normal [facility] Comment on above: Performed By: #### 2 [id number] #### [facility] [address] [place] [address] Rapid COV Int POS Ctl Pass Normal [facility] Comment on above: Performed By: #### 2 [id number] #### [facility] [address] [place] [address] SARS-CoV+SARS-CoV-2 (COVID-19) Ag IA.rapid Ql (Resp) Not detected Normal Not Detected [facility] Comment on above: Result Comment: The Clew System for Rapid Detection of SARS-CoV-2 is a chromatographic digital immunoassay intended for the direct and qualitative detection of SARS-CoV-2 nucleocapsid antigens in nasal swabs from individuals who are suspected of COVID-19 by their healthcare provider within the first five days of the onset of symptoms. Negative results should be treated as presumptive, do not rule out SARS-CoV-2 infection and should not be used as the sole basis for treatment or patient management decisions, including infection control decisions. Negative results should be considered in the context of a patient?s recent exposures, history and the presence of clinical signs and symptoms consistent with COVID-19, and confirmed with a molecular assay, if necessary, for patient management. For in vitro diagnostic use. In the [facility], only for use under an Emergency Use Authorization. In the [place], this test has not been FDA cleared or approved; this test has been authorized by FDA under an EUA for use by authorized laboratories; use by laboratories certified under the CLIA, 42 U.S.C. ?263a, that meet requirements to perform moderate, high, or waived complexity tests and at the Point of Care (POC), i.e., in patient care settings operating under a CLIA Certificate of Waiver, Certificate of Compliance, or Certificate of Accreditation. This test has been authorized only for the detection of proteins from SARS-CoV-2, not for any other viruses or pathogens; and, in the [place], this test is only authorized for the duration of the declaration that circumstances exist justifying the authorization of emergency use of in vitro diagnostics for detection and/or diagnosis of the virus that causes COVID-19 under Section 564(b)(1) of the Act, 21 U.S.C. ? 360bbb-3(b)(1), unless the authorization is terminated or revoked sooner. Performed By: #### 2 [id number] #### [facility] [address] [place] [address] Troponin 0 Hr.on 03-24-2024 Troponin HS 4.00 pg/mL Low 10.10-27.10 [facility] Comment on above: Result Comment: The 95% CI (Confidence Interval) PPV (Positive Predictive Value) for myocardial infarction in females is 38 pg/mL, in males 51 pg/mL. The results should be used in conjunction with clinical conditions of myocardial infarction. (Access High Sensitivity Troponin I Instructions For Use, [employer], May 2018) Performed By: #### 1 [id number] #### [facility] [address] [place] [address] eGFRon 03-24-2024 eGFR 46 mL/min/1.73 m2 Low >=59 [facility] Comment on above: Order Comment: Order added by Discern Expert. Performed By: #### 1 [id number] #### [facility] [address] [place] [address] Ambulatory Visit Summaryon 0 03-21-2024 Ambulatory Visit Summary LEVI SOFIA :1960 Visit Date:03/21/2024 Ambulatory Visit Instructions Your Diagnosis Moderate persistent asthma with exacerbation Sore throat GERD (gastroesophageal reflux disease) Allergic rhinitis due to pollen Benign hypertension Class 2 severe obesity due to excess calories with serious comorbidity in adult BMI 40.0-44.9, adult Your Care Team Attending Physician - Mara BEVERLY MD Primary Care Physician - Mara BEVERLY MD This Is Your Medications List benzonatate (benzonatate 200 mg oral capsule) Contact prescribing physician if questions or concerns Misc Prescription (Nebulizer Machine) Misc Prescription (Nebulizer machine tubing/ kit) albuterol (Albuterol (Eqv-ProAir HFA) 90 mcg/inh inhalation aerosol) albuterol (albuterol 0.083% Inh Mamie 3 mL) albuterol-ipratropi um (DuoNeb 2.5 mg-0.5 mg/3 mL Soln-Inh) atorvastatin (atorvastatin 20 mg Tab) citalopram (citalopram 20 mg Tab) diclofenac (diclofenac sodium 75 mg Oral EC Tab) docusate (Colace 100 mg Cap) duloxetine (duloxetine 30 mg oral delayed release capsule) fexofenadine (Carla 24 Hour Allergy oral tablet) fluconazole (Diflucan 150 mg Tab) fluticasone-vilante rol (Breo Ellipta 100 mcg-25 mcg inhalation powder) hydrochlorothiazide (hydrochlorothiazid e 12.5 mg Cap) levothyroxine (levothyroxine 137 mcg (0.137 mg) Tab) losartan (losartan 50 mg Tab) methylPREDNISolone (Medrol Dosepack 4 mg Tab) multivitamin (Daily Multiple Vitamins) mupirocin topical (mupirocin Top 2% Crm) omeprazole (omeprazole 20 mg Cap-DR) oxybutynin (oxybutynin 15 mg ER Tab) propranolol (propranolol 80 mg Cap-ER) sumatriptan (SUMAtriptan 100 mg Tab) triamcinolone nasal (Nasacort Allergy 24HR nasal spray) Procedures Performed Total knee replacement (05/16/2023), Knee replacement (04/02/2023), Colonoscopy (08/18/2021), Left foot (01/10/2021), Radiofrequency denervation of spinal facet joint of lumbar vertebra (08/18/2020), Injection of facet joint using fluoroscopic guidance (07/21/2020), Injection of facet joint using fluoroscopic guidance (07/07/2020), Cataract extraction and insertion of intraocular lens (07/05/2020), Injection of sacroiliac joint using fluoroscopic guidance (03/10/2020), Injection of sacroiliac joint using fluoroscopic guidance (12/02/2019), Sacroiliac joint injection (08/27/2019), Injection of sacroiliac joint using fluoroscopic guidance (05/28/2019), Injection of sacroiliac joint using fluoroscopic guidance (02/05/2019), Left Transforaminal Epidural Steroid Injection (11/13/2018), Epidural injection of lumbar spine using fluoroscopic guidance (09/25/2018), Transforaminal Epidural Steroid Injection (07/17/2018), epidural steroid injection (06/12/2018), transforaminal epidural steroid injection (04/10/2018), Cataract extraction and insertion of intraocular lens (04/01/2018), transforaminal steroid injection (04/18/2017), EVLT LGSV (07/11/2016), ABHINAV lumbosacral (03/29/2016), transforaminal steroid injection (12/22/2015), transforaminal steroid injection (09/15/2015), transforaminal steroid injection (06/30/2015), Transforaminal steriod injection (04/30/2015), Trasforaminal steriod injection (02/12/2015), Transforaminal steriod injection (11/20/2014), Transforaminal epidural steroid injection (05/22/2014), Epidural injection of lumbar spine using fluoroscopic guidance (01/28/2014), Epidural injection of lumbar spine using fluoroscopic guidance (11/19/2013), Epidural injection of lumbar spine using fluoroscopic guidance (09/24/2013), scraping of the elbow-right (2011), hysterectomy (2008), Tonsillectomy (1964), Bunion, Hysterectomy, Sinus congestion, sinus surgeries, Transforaminal epidural steroid injection. Discharge Vitals Temperature (Temporal Artery) 36.8 ?C Heart Rate (Peripheral) 70 Respiratory Rate 16 Blood Pressure 136/80 Height 177 cm Height 70 in Weight 128.6 kg Weight 282.92 lb BMI 41.05 What to do next Scheduled Follow-Up Appointments Sunday 6:40 PM EDT With: Mara BEVERLY MD Where: [facility] [place] Normal [address] [place] [address], [address] [place] [address]- \.br\ You Need to Schedule the Following Appointments\.br\ Follow Up with Mara BEVERLY MD [facility] When: Only if needed\.br\ Where:\.br\ \.br\ Medications\.br\ What How Much When Instructions\.br\ New benzonatate (benzonatate 200 mg oral capsule) 1 Capsules By Mouth 3 times a day Duration: 10 [address] [facility] at [facility]\.br\ Unchanged albuterol (Albuterol (Eqv-ProAir HFA) 90 mcg/ inh inhalation aerosol) 2 Puffs Inhalation Every 6 hours Contact prescribing physician if questions or concerns \.br\ Unchanged albuterol (albuterol 0.083% Inh Mamie 3 mL) 0.083% - 3mL dosing units Inhalation Every 4 hours as needed for as needed for wheezing Contact prescribing physician if questions or concerns \.br\ Unchanged albuterol-ipratropiu m (DuoNeb 2.5 mg-0.5 mg/ 3 mL Soln-Inh) 3 Milliliter Inhalation 4 times a day Contact prescribing physician if questions or concerns \.br\ Unchanged atorvastatin (atorvastatin 20 mg Tab) 1 Tablets By Mouth Once a day (at bedtime) Contact prescribing physician if questions or concerns \.br\ Unchanged citalopram (citalopram 20 mg Tab) 1 Tablets By Mouth Every day Contact prescribing physician if questions or concerns \.br\ Unchanged diclofenac (diclofenac sodium 75 mg Oral EC Tab) 1 Tablets By Mouth 2 times a day Contact prescribing physician if questions or concerns \.br\ Unchanged docusate (Colace 100 mg Cap) 1 Capsules By Mouth 2 times a day Contact prescribing physician if questions or concerns \.br\ Unchanged duloxetine (duloxetine 30 mg oral delayed release capsule) 1 Capsules By Mouth Every day Contact prescribing physician if questions or concerns \.br\ Unchanged fexofenadine (Carla 24 Hour Allergy oral tablet) 1 Tablets By Mouth Every day Contact prescribing physician if questions or concerns \.br\ Unchanged fluconazole (Diflucan 150 mg Tab) See instructions Take one po q 3 day as needed for post op yeast Contact prescribing physician if questions or concerns \.br\ Unchanged fluticasone-vilanter ol (Breo Ellipta 100 mcg-25 mcg inhalation powder) 1 Puffs Inhalation Every day 30 dose unit Contact prescribing physician if questions or concerns \.br\ Unchanged hydrochlorothiazide (hydrochlorothiazide 12.5 mg Cap) 1 Capsules By Mouth Every day Contact prescribing physician if questions or concerns \.br\ Unchanged levothyroxine (levothyroxine 137 mcg (0.137 mg) Tab) 1 Tablets By Mouth Every day Contact prescribing physician if questions or concerns \.br\ Unchanged losartan (losartan 50 mg Tab) 1 Tablets By Mouth 2 times a day Contact prescribing physician if questions or concerns \.br\ Unchanged methylPREDNISolone (Medrol Dosepack 4 mg Tab) 1 Packets By Mouth As Directed Duration: 6 Days as directed on package labeling Contact prescribing physician if questions or concerns \.br\ Unchanged Misc Prescription (Nebulizer machine tubing/ kit) See instructions use with nebulizer medication dx. J45.41 Contact prescribing physician if questions or concerns \.br\ Unchanged Misc Prescription (Nebulizer Machine) See instructions use with medication for inhalaiton dx.J45.41 Contact prescribing physician if questions or concerns \.br\ Unchanged multivitamin (Daily Multiple Vitamins) 1 Tablets By Mouth Every day Contact prescribing physician if questions or concerns \.br\ Unchanged mupirocin topical (mupirocin Top 2% Crm) 1 Application Topical 3 times a day Contact prescribing physician if questions or concerns \.br\ Unchanged omeprazole (omeprazole 20 mg Cap-DR) 1 Capsules By Mouth Every day Contact prescribing physician if questions or concerns \.br\ Unchanged oxybutynin (oxybutynin 15 mg ER Tab) 1 Tablets By Mouth Every day Contact prescribing physician if questions or concerns \.br\ Unchanged propranolol (propranolol 80 mg Cap-ER) 1 Capsules By Mouth 2 times a day Contact prescribing physician if questions or concerns \.br\ Unchanged sumatriptan (SUMAtriptan 100 mg Tab) 1 Tablets By Mouth As Directed as needed for Migraine headache Take at onset of migraine. May repeat dose in 1 hour if no relief Contact prescribing physician if questions or concerns \.br\ Unchanged triamcinolone nasal (Nasacort Allergy 24HR nasal spray) 2 Sprays Nasal Inhalation Every day Contact prescribing physician if questions or concerns \.br\ Pharmacy Information\.br\ [facility]: [address] [place] [id number] [phone]\.br\ Allergies\.br\ Augmentin (hives)\.br\ Avelox (Hives)\.br\ Parafon Forte DSC (hives)\.br\ Penicillin V Potassium (Unknown)\.br\ penicillin (Hives)\.br\ Problems\.br\ Ongoing - Any problem that you are currently receiving treatment for.\.br\ Allergic rhinitis due to pollen\.br\ Asthma, moderate persistent\.br\ Benign hypertension\.br\ BMI 40.0-44.9, adult\.br\ Class 2 severe obesity due to excess calories with serious comorbidity in adult\.br\ Combined hyperlipidemia\.br\ Depression, major, recurrent, in partial remission\.br\ Detrusor instability of bladder\.br\ Encounter for well adult exam with abnormal findings\.br\ Fasting hyperglycemia\.br\ GERD (gastroesophageal reflux disease)\.br\ Gout\.br\ Hypothyroidism, congenital\.br\ Left lumbar radiculopathy\.br\ Low serum vitamin D\.br\ Migraine headache\.br\ Moderate persistent asthma with exacerbation\.br\ Osteoarthritis of left knee\.br\ Personal history of colonic polyps\.br\ Rotator cuff tear arthropathy of right shoulder\.br\ Screening mammogram, encounter for\.br\ Sore throat\.br\ TMJ syndrome\.br\ Well adult exam\.br\ Historical - Any problem that you are no longer receiving treatment for.\.br\ Acid reflux\.br\ Actinic keratosis of left cheek\.br\ Allergic rhinitis\.br\ Asthma\.br\ Asthma\.br\ Asthma\.br\ Class 1 obesity due to excess calories in adult\.br\ Class 2 obesity due to excess calories in adult\.br\ Dysesthesia\.br\ Encounter for wellness examination\.br\ Epicondylitis\.br\ Fatigue\.br\ Hyperlipidemia\.br\ Hypertension\.br\ Hypertension\.br\ Hypertension\.br\ Hypothyroid\.br\ Morbid obesity\.br\ Nasal mucositis (ulcerative)\.br\ Nasal sinus\.br\ Obesity\.br\ Other acute sinusitis\.br\ Pain in joint of left shoulder\.br\ Pain, dental\.br\ Recurrent frontal sinusitis\.br\ TMJ - Temporomandibular joint\.br\ Viral pharyngoconjunctivit is\.br\ Visit for screening mammogram\.br\ Patient Survey\.br\ You may receive a survey via text or e-mail asking about your office visit. Please share your experience with us by completing your survey. We appreciate your feedback and thank you for choosing us for your care.\.br\ Education Materials\.br\ Asthma, Adult\.br\ \.br\ Asthma is a condition that causes swelling and narrowing of the airways. These are the passages that lead from the nose and mouth down into the lungs. When asthma symptoms get worse it is called an asthma attack or flare. This can make it hard to breathe. Asthma flares can range from minor to life-threatening. There is no cure for asthma, but medicines and lifestyle changes can help to control it.\.br\ What are the causes?\.br\ It is not known exactly what causes asthma, but certain things can cause asthma symptoms to get worse (triggers).\.br\ What can trigger an asthma attack?\.br\ ? \.br\ Cigarette smoke.\.br\ ? \.br\ Mold.\.br\ ? \.br\ Dust.\.br\ ? \.br\ Your pet's skin flakes (dander).\.br\ ? \.br\ Cockroaches.\.br\ ? \.br\ Pollen.\.br\ ? \.br\ Air pollution (like household strategy intern, wood smoke, smog, or chemical odors).\.br\ What are the signs or [facility] Office/Clini c Noteon 03-21-2024 Family Medicine Office/Clinic Note Chief Complaint pt presents today cont c/o sore throat and cough History of Present Illness The patient is a 64-year-old female with chronic asthma. She is accompanied by her grandchildren. The patient reports an improvement in her chest pressure from asthma exacerbation However, she continues to experience a sore throat, which she attributes to persistent coughing. Her sleep has been disrupted due to the severity of her cough, necessitating daytime napping. Despite sleeping in a recliner last night, her sleep quality improved. She plans to travel to [place] on Sunday and expresses concern about feeling unwell by Sunday. She also reports a unpleasant aftertaste but denies any nasal discharge or severe nasal congestion. Over the past 4 to 5 days, she has not experienced any fevers, although she occasionally feels hot. She has yet to commence Breo, but continues to use Symbicort, with only one remaining. A cough suppressant has been prescribed, which she finds beneficial But too sedating for daytime use. She is completing her second course of prednisone for the asthma and freely admits that reflux may be partially to blame as she does have a bad taste in her mouth. Her voice remains hoarse. She denies any nasal congestion no fevers. Not consistently rinsing mouth after steroid inhaler. Review of Systems PHQ Score Initial Depression Screen Score: 0 SCORE See HPI otherwise negative Physical Exam Vitals & Measurements T: 36.8 ?C(Temporal Artery) HR: 70(Peripheral) RR: 16 BP: 136/80 SpO2: 97% HT: 70 in HT: 177 cm WT: 128.6 kg WT: 282.92 lb BMI: 41.05 The patient is adequately groomed and reasonably hydrated, accompanied by her grandchildren. She ambulates with a walker. Her right foot is still in a postoperative boot. She has a very hoarse voice. Her tympanic membranes are retracted. Her nares have clear rhinorrhea and boggy turbinates. There is no septal deviation. Her oropharynx is slightly erythematous. There is no exudate. Her neck is without palpable adenopathy. Upon auscultation of her lungs, there is faint expiratory wheezing on the left upper lobe. There are no intercostal retractions. There is no rhonchi. Her heart has a regular rate and rhythm. No murmur, gallop, or rub are detected. Her abdomen is obese and nontender. There is no use of accessory abdominal muscles from breathing. Assessment/Plan 1. Moderate persistent asthma with exacerbation (J45.41: Moderate persistent asthma with (acute) exacerbation) Patient is improving moderately. She may continue with aerosol treatments but taper down to as needed use maintaining use of Symbicort and/or Breo. Reinforced the importance of good oral hygiene to prevent thrush which I do not see currently but could certainly be developing causing her throat irritation. 2. Sore throat (J02.9: Acute pharyngitis, unspecified) Patient is encouraged to continue good mouth hygiene including brushing and gargling. Suggested trial of benzonatate for the cough which seems to be causing irritation in the throat. No indication for treating strep or testing. Does not meet the [facility] criteria 3. GERD (gastroesophageal reflux disease) (K21.9: Gastro-esophageal reflux disease without esophagitis) Strong suspicion this is adding to the sore throat. She will increase her omeprazole to twice daily dosing for the next 10 to 14 days as she is tapering off of prednisone and then may resume routine use. Dietary discretions are discussed 4. Allergic rhinitis due to pollen (J30.1: Allergic rhinitis due to pollen) Continue antihistamine use. 5. Benign hypertension (I10: Essential (primary) hypertension) The importance of the following were all reviewed with the patient: -Take Rx(s )as prescribed. There are simple Lifestyle Modifications that you can do to reduce your blood pressure. -Weight Reduction -Follow the DASH eating plan. More information about this eating plan can be found here: https://www.nhlbi.n ih.gov/health/healt h-topics/topics/matamoros h -Reduce Sodium (Salt) Intake to 2000mg per day. -Use Moderation when consuming alcohol. - To improve your health we recommend increasing your level of moderate exercise to at least 2.5 hrs per week. For more information, please visit the CDC Exercise and Fitness Recommendations at www.cdc.gov/physica lactivity/basics/in dex.htm 6. Class 2 severe obesity due to excess calories with serious comorbidity in adult (E66.01: Morbid (severe) obesity due to excess calories) The standard range for ages 18 and older is >=18.5 and < 25 kg/m2. Your BMI today was above this range, this falls in the overweight to obese category and there are medical benefits to weight loss. We can offer counselling, referral, and/or medical support in addressing this problem. Your BMI and weight management will be followed at subsequent visits. 7. BMI 40.0-44.9, adult (Z68.41: Body mass index [BMI] 40.0-44.9, adult) See #6 Orders: benzonatate, 200 mg = 1 cap(s), Oral, TID, X 10 day(s), # 30 cap (more content not included)... [facility] Comment on above: Result Comment: Elec tronically Signed By: SIRIA ARMENTA, Mara\.christiana\Date and Time Signed: 03/21/24 16:48 EDT Patient Educationon 03-21-20 Patient Education Pulmonary Medicine Asthma, Adult Asthma is a condition that causes swelling and narrowing of the airways. These are the passages that lead from the nose and mouth down into the lungs. When asthma symptoms get worse it is called an asthma attack or flare. This can make it hard to breathe. Asthma flares can range from minor to life-threatening. There is no cure for asthma, but medicines and lifestyle changes can help to control it. What are the causes? It is not known exactly what causes asthma, but certain things can cause asthma symptoms to get worse (triggers). What can trigger an asthma attack? ? Cigarette smoke. ? Mold. ? Dust. ? Your pet's skin flakes (dander). ? Cockroaches. ? Pollen. ? Air pollution (like household strategy intern, wood smoke, smog, or chemical odors). What are the signs or symptoms? ? Trouble breathing (shortness of breath). ? Coughing. ? Making high-pitched whistling sounds when you breathe, most often when you breathe out (wheezing). ? Chest tightness. ? Tiredness with little activity. ? Poor exercise tolerance. How is this treated? ? Controller medicines that help prevent asthma symptoms. ? Fast-acting reliever or rescue medicines. These give short-term relief of asthma symptoms. ? Allergy medicines if your attacks are brought on by allergens. ? Medicines to help control the body's defense (immune) system. ? Staying away from the things that cause asthma attacks. Follow these instructions at home: Avoiding triggers in your home ? Do not allow anyone to smoke in your home. ? Limit use of fireplaces and wood stoves. ? Get rid of pests (such as roaches and mice) and their droppings. ? Keep your home clean. ? Clean your floors. Dust regularly. Use cleaning products that do not smell. ? Wash bed sheets and blankets every week in hot water. Dry them in a dryer. ? Have someone vacuum when you are not home. ? Change your heating and air conditioning filters often. ? Use blankets that are made of polyester or cotton. General instructions ? Take [id number] and prescription medicines only as told by your doctor. ? Do not smoke or use any products that contain nicotine or tobacco. If you need help quitting, ask your doctor. ? Stay away from secondhand smoke. ? Avoid doing things outdoors when allergen counts are high and when air quality is low. ? Warm up before you exercise. Take time to cool down after exercise. ? Use a peak flow meter as told by your doctor. A peak flow meter is a tool that measures how well your lungs are working. ? Keep track of the peak flow meter's readings. Write them down. ? Follow your asthma action plan. This is a written plan for taking care of your asthma and treating your attacks. ? Make sure you get all the shots (vaccines) that your doctor recommends. Ask your doctor about a flu shot and a pneumonia shot. ? Keep all follow-up visits. Contact a doctor if: ? You have wheezing, shortness of breath, or a cough even while taking medicine to prevent attacks. ? The mucus you cough up (sputum) is thicker than usual. ? The mucus you cough up changes from clear or white to yellow, green, drake, or is bloody. ? You have problems from the medicine you are taking, such as: ? A rash. ? Itching. ? Swelling. ? Trouble breathing. ? You need reliever medicines more than 2?3 times a week. ? Your peak flow reading is still at 50?79% of your personal best after following the action plan for 1 hour. ? You have a fever. Get help right away if: ? You seem to be worse and are not responding to medicine during an asthma attack. ? You are short of breath even at rest. ? You get short of breath when doing very little activity. ? You have trouble eating, drinking, or talking. ? You have chest pain or tightness. ? You have a fast heartbeat. ? Your lips or fingernails start to turn blue. ? You are light-headed or dizzy, or you faint. ? Your peak flow is less than 50% of your personal best. ? You feel too tired to breathe normally. These symptoms may be an emergency. Get help right away. Call 911. ? Do not wait to see if the symptoms will go away. ? Do not drive yourself to the hospital. Summary ? Asthma is a long-term (chronic) condition in which the airways get tight and narrow. An asthma attack can make it hard to breathe. ? Asthma cannot be cured, but medicines and lifestyle changes can help control it. ? Make sure you understand how to avoid triggers and how and when to use your medicines. ? Avoid things that can cause allergy symptoms (allergens). These include animal skin flakes (dander) and pollen from trees or grass. ? Avoid things that pollute the air. These may include household strategy intern, wood smoke, smog, or chemical odors. This information is not intended to replace advice given to you by your health care provider. Make sure you discuss any questions you have with your health care provi (more content not included)... [facility] Patient Correspondenceon Patient Correspondence [phone] [id number] [facility] Ambulatory Visit Summaryon 0 03-10-2024 Ambulatory Visit Summary LEVI SOFIA :1960 Visit Date:03/10/2024 Ambulatory Visit Instructions Your Diagnosis Moderate persistent asthma with exacerbation Allergic rhinitis due to pollen Benign hypertension Class 2 severe obesity due to excess calories with serious comorbidity in adult BMI 40.0-44.9, adult Your Care Team Attending Physician - SIRIA ARMENTA, Mara Primary Care Physician - SIRIA ARMENTA, Mara This Is Your Medications List Misc Prescription (Nebulizer Machine) Misc Prescription (Nebulizer machine tubing/ kit) albuterol (Albuterol (Eqv-ProAir HFA) 90 mcg/inh inhalation aerosol) albuterol (albuterol 0.083% Inh Mamie 3 mL) atorvastatin (atorvastatin 20 mg Tab) citalopram (citalopram 20 mg Tab) diclofenac (diclofenac sodium 75 mg Oral EC Tab) docusate (Colace 100 mg Cap) duloxetine (duloxetine 30 mg oral delayed release capsule) fexofenadine (Carla 24 Hour Allergy oral tablet) fluconazole (Diflucan 150 mg Tab) fluticasone-vilante rol (Breo Ellipta 100 mcg-25 mcg inhalation powder) hydrochlorothiazide (hydrochlorothiazid e 12.5 mg Cap) levothyroxine (levothyroxine 137 mcg (0.137 mg) Tab) losartan (losartan 50 mg Tab) multivitamin (Daily Multiple Vitamins) mupirocin topical (mupirocin Top 2% Crm) omeprazole (omeprazole 20 mg Cap-DR) oxybutynin (oxybutynin 15 mg ER Tab) predniSONE (predniSONE 20 mg Tab) propranolol (propranolol 80 mg Cap-ER) sumatriptan (SUMAtriptan 100 mg Tab) triamcinolone nasal (Nasacort Allergy 24HR nasal spray) Procedures Performed Total knee replacement (05/16/2023), Knee replacement (04/02/2023), Colonoscopy (08/18/2021), Left foot (01/10/2021), Radiofrequency denervation of spinal facet joint of lumbar vertebra (08/18/2020), Injection of facet joint using fluoroscopic guidance (07/21/2020), Injection of facet joint using fluoroscopic guidance (07/07/2020), Cataract extraction and insertion of intraocular lens (07/05/2020), Injection of sacroiliac joint using fluoroscopic guidance (03/10/2020), Injection of sacroiliac joint using fluoroscopic guidance (12/02/2019), Sacroiliac joint injection (08/27/2019), Injection of sacroiliac joint using fluoroscopic guidance (05/28/2019), Injection of sacroiliac joint using fluoroscopic guidance (02/05/2019), Left Transforaminal Epidural Steroid Injection (11/13/2018), Epidural injection of lumbar spine using fluoroscopic guidance (09/25/2018), Transforaminal Epidural Steroid Injection (07/17/2018), epidural steroid injection (06/12/2018), transforaminal epidural steroid injection (04/10/2018), Cataract extraction and insertion of intraocular lens (04/01/2018), transforaminal steroid injection (04/18/2017), EVLT LGSV (07/11/2016), ABHINAV lumbosacral (03/29/2016), transforaminal steroid injection (12/22/2015), transforaminal steroid injection (09/15/2015), transforaminal steroid injection (06/30/2015), Transforaminal steriod injection (04/30/2015), Trasforaminal steriod injection (02/12/2015), Transforaminal steriod injection (11/20/2014), Transforaminal epidural steroid injection (05/22/2014), Epidural injection of lumbar spine using fluoroscopic guidance (01/28/2014), Epidural injection of lumbar spine using fluoroscopic guidance (11/19/2013), Epidural injection of lumbar spine using fluoroscopic guidance (09/24/2013), scraping of the elbow-right (2011), hysterectomy (2008), Tonsillectomy (1964), Bunion, Hysterectomy, Sinus congestion, sinus surgeries, Transforaminal epidural steroid injection. Discharge Vitals Temperature (Temporal Artery) 36.8 ?C Heart Rate (Peripheral) 77 Respiratory Rate 20 Blood Pressure 140/90 Height 177 cm Height 70 in Weight 128.6 kg Weight 282.92 lb BMI 41.05 What to do next Scheduled Follow-Up Appointments Sunday 6:40 PM EDT With: Mara BEVERLY MD Where: [facility] [place] [facility] [address], [address] [place] [address]- \.br\ Medications\.br\ What How Much When Instructions\.br\ Unchanged albuterol (Albuterol (Eqv-ProAir HFA) 90 mcg/ inh inhalation aerosol) 2 Puffs Inhalation Every 6 hours\.br\ Unchanged albuterol (albuterol 0.083% Inh Mamie 3 mL) 0.083% - 3mL dosing units Inhalation Every 4 hours as needed for as needed for wheezing\.br\ Unchanged atorvastatin (atorvastatin 20 mg Tab) 1 Tablets By Mouth Once a day (at bedtime)\.br\ Unchanged citalopram (citalopram 20 mg Tab) 1 Tablets By Mouth Every day\.br\ Unchanged diclofenac (diclofenac sodium 75 mg Oral EC Tab) 1 Tablets By Mouth 2 times a day\.br\ Unchanged docusate (Colace 100 mg Cap) 1 Capsules By Mouth 2 times a day\.br\ Unchanged duloxetine (duloxetine 30 mg oral delayed release capsule) 1 Capsules By Mouth Every day\.br\ Unchanged fexofenadine (Carla 24 Hour Allergy oral tablet) 1 Tablets By Mouth Every day\.br\ Unchanged fluconazole (Diflucan 150 mg Tab) See instructions Take one po q 3 day as needed for post op yeast \.br\ Unchanged fluticasone-vilanter ol (Breo Ellipta 100 mcg-25 mcg inhalation powder) 1 Puffs Inhalation Every day 30 dose unit \.br\ Unchanged hydrochlorothiazide (hydrochlorothiazide 12.5 mg Cap) 1 Capsules By Mouth Every day\.br\ Unchanged levothyroxine (levothyroxine 137 mcg (0.137 mg) Tab) 1 Tablets By Mouth Every day\.br\ Unchanged losartan (losartan 50 mg Tab) 1 Tablets By Mouth 2 times a day\.br\ Unchanged Misc Prescription (Nebulizer machine tubing/ kit) See instructions use with nebulizer medication dx. J45.41 \.br\ Unchanged Misc Prescription (Nebulizer Machine) See instructions use with medication for inhalaiton dx.J45.41 \.br\ Unchanged multivitamin (Daily Multiple Vitamins) 1 Tablets By Mouth Every day\.br\ Unchanged mupirocin topical (mupirocin Top 2% Crm) 1 Application Topical 3 times a day\.br\ Unchanged omeprazole (omeprazole 20 mg Cap-DR) 1 Capsules By Mouth Every day\.br\ Unchanged oxybutynin (oxybutynin 15 mg ER Tab) 1 Tablets By Mouth Every day\.br\ Unchanged predniSONE (predniSONE 20 mg Tab) 2 Tablets By Mouth Every day Duration: 7 Days\.br\ Unchanged propranolol (propranolol 80 mg Cap-ER) 1 Capsules By Mouth 2 times a day\.br\ Unchanged sumatriptan (SUMAtriptan 100 mg Tab) 1 Tablets By Mouth As Directed as needed for Migraine headache Take at onset of migraine. May repeat dose in 1 hour if no relief \.br\ Unchanged triamcinolone nasal (Nasacort Allergy 24HR nasal spray) 2 Sprays Nasal Inhalation Every day\.br\ Allergies\.br\ Augmentin (hives)\.br\ Avelox (Hives)\.br\ Parafon Forte DSC (hives)\.br\ Penicillin V Potassium (Unknown)\.br\ penicillin (Hives)\.br\ Problems\.br\ Ongoing - Any problem that you are currently receiving treatment for.\.br\ Allergic rhinitis due to pollen\.br\ Asthma, moderate persistent\.br\ Benign hypertension\.br\ BMI 40.0-44.9, adult\.br\ Class 2 severe obesity due to excess calories with serious comorbidity in adult\.br\ Combined hyperlipidemia\.br\ Depression, major, recurrent, in partial remission\.br\ Detrusor instability of bladder\.br\ Encounter for well adult exam with abnormal findings\.br\ Fasting hyperglycemia\.br\ GERD (gastroesophageal reflux disease)\.br\ Gout\.br\ Hypothyroidism, congenital\.br\ Left lumbar radiculopathy\.br\ Low serum vitamin D\.br\ Migraine headache\.br\ Moderate persistent asthma with exacerbation\.br\ Osteoarthritis of left knee\.br\ Personal history of colonic polyps\.br\ Rotator cuff tear arthropathy of right shoulder\.br\ Screening mammogram, encounter for\.br\ TMJ syndrome\.br\ Well adult exam\.br\ Historical - Any problem that you are no longer receiving treatment for.\.br\ Acid reflux\.br\ Actinic keratosis of left cheek\.br\ Allergic rhinitis\.br\ Asthma\.br\ Asthma\.br\ Asthma\.br\ Class 1 obesity due to excess calories in adult\.br\ Class 2 obesity due to excess calories in adult\.br\ Dysesthesia\.br\ Encounter for wellness examination\.br\ Epicondylitis\.br\ Fatigue\.br\ Hyperlipidemia\.br\ Hypertension\.br\ Hypertension\.br\ Hypertension\.br\ Hypothyroid\.br\ Morbid obesity\.br\ Nasal mucositis (ulcerative)\.br\ Nasal sinus\.br\ Obesity\.br\ Other acute sinusitis\.br\ Pain in joint of left shoulder\.br\ Pain, dental\.br\ Recurrent frontal sinusitis\.br\ TMJ - Temporomandibular joint\.br\ Viral pharyngoconjunctivit is\.br\ Visit for screening mammogram\.br\ Patient Survey\.br\ You may receive a survey via text or e-mail asking about your office visit. Please share your experience with us by completing your survey. We appreciate your feedback and thank you for choosing us for your care.\.br\ Education Materials\.br\ Asthma Attack\.br\ \.br\ Asthma attack, also called asthma flare or acute bronchospasm, is the sudden narrowing and tightening of the lower airways (bronchi) in the lungs, that can make it hard to breathe. The narrowing is caused by inflammation and tightening of the smooth muscle that wraps around the lower airways in the lungs.\.br\ Asthma attacks may cause coughing, high-pitched whistling sounds when you breathe, most often when you breathe out (wheezing), trouble breathing (shortness of breath), and chest pain. The airways may produce extra mucus caused by the inflammation and irritation. During an asthma attack, it can be difficult to breathe. It is important to get treatment right away. Asthma attacks can range from minor to life-threatening.\.b r\ What are the causes?\.br\ Possible causes or triggers of this condition include:\.br\ ? \.br\ Household allergens like dust, pet dander, and cockroaches.\.br\ ? \.br\ Mold and pollen from trees or grass.\.br\ ? \.br\ Air pollutants such as household strategy intern, aerosol sprays, strong odors, and smoke of any kind.\.br\ ? \.br\ Weather changes and cold air.\.br\ ? \.br\ Stress or strong emotions such as crying or laughing hard.\.br\ ? \.br\ Exercise or activity that requires a lot of energy.\.br\ ? \.br\ Certain medicines or medical conditions such as:\.br\ ? \.br\ Aspirin or beta-blockers.\.br\ ? \.br\ Infections or inflammatory conditions, such as a flu (influenza), a cold, pneumonia, or inflammation of the nasal membranes (rhinitis).\.br\ ? \.br\ Gastroesophageal reflux disease (GERD). GERD is a condition in which stomach acid backs up into your esophagus and spills into your trachea (windpipe), which can irritate your airways.\.br\ What are the signs or symptoms?\.br\ Symptoms of this condition include:\.br\ ? \.br\ Wheezing.\.br\ ? \.br\ Excessive coughing. This may only happen at night.\.br\ ? \.br\ Chest tightness or pain.\.br\ ? \.br\ Shortness of breath.\.br\ ? \.br\ Difficulty talking in complete sentences.\.br\ ? \.br\ Feeling like you cannot get enough air, no matter how hard you breathe (air hunger).\.br\ How is this diagnosed?\.br\ This condition may be diagnosed based on:\.br\ ? \.br\ A physical exam and your medical history.\.br\ ? \.br\ Your symptoms.\.br\ ? \.br\ Tests to check for other causes of your symptoms or other conditions that may have triggered your asthma attack. These tests may include:\.br\ ? \.br\ A chest X-ray.\.br\ ? \.br\ Blood tests.\.br\ ? \.br\ Lung function studies (spirometry) to evaluate the flow of air in your lungs.\.br\ How is this treated?\.br\ Treatment for this condition depends on the severity and cause of your asthma attack.\.br\ ? \.b [facility] Family Medicine Office/Clini c Noteon 03-10-2024 Family Medicine Office/Clinic Note Chief Complaint pt presents today c/o sinus congestion/drainage /pain/pressure, cough, chest tightness, SOB starting 03/06/24, requesting samples of normal saline, needs AMV History of Present Illness The patient presents for evaluation of sinus and asthma. Has been sick since last week. Was prescribed prednisone late last week. She called this weekend for an albuterol inhaler. She does have access to outdated DuoNebs. Only took 1 treatment earlier today. She continues to experience chest tightness. She has been expectorating light green mucus. She has found clindamycin from a previous prescription she received in 10/2023. Primarily for dental prophylaxis she took this without any improvement. Supplemental Information She has been getting a lot of wax out of her ears for a couple of weeks. Denies any otalgia. Unaware of any fevers chills nausea vomiting or diarrhea. No other sick exposures. She does have a longstanding history of asthma.. She will be due for laboratories with her upcoming appointment this summer. Review of Systems PHQ Score Initial Depression Screen Score: 0 SCORE See HPI otherwise negative Physical Exam Vitals & Measurements T: 36.8 ?C(Temporal Artery) HR: 77(Peripheral) RR: 20 BP: 138/86 SpO2: 98% HT: 70 in HT: 177 cm WT: 128.6 kg WT: 282.92 lb BMI: 41.05 The patient appears well groomed and adequately hydrated. She is uncomfortable with her breathing, but no distress. The patient's head is normocephalic and atraumatic. Her conjunctivae are clear. Her pupils are symmetric. Her dentition is fair. Her oropharynx is pink and moist. Her tympanic membranes are clean and show grossly normal hearing. Her nares have pale yellow rhinorrhea. The patient's neck is supple, but thick. There is no thyromegaly. Upon auscultation of her lungs, there is expiratory wheezing at the bases. No intercostal retractions. No use of accessory abdominal muscles. The patient's heart has a regular rate and rhythm. No murmur, gallop, or rub. The patient's abdomen is obese, hyperactive bowel sounds, and nontender. The patient has an AFO on the right foot and is using a walker for ambulation with an antalgic gait. The patient's skin is relatively lazcano. There are some senile purpura on the arms. Vital Signs The patient's blood pressure is 138/86. Assessment/Plan 1. Moderate persistent asthma with exacerbation (J45.41: Moderate persistent asthma with (acute) exacerbation) Recommendation to complete the steroid taper, will add oral antibiotic azithromycin for atypicals. Discontinue the clindamycin as this is primarily for her dental prophylaxis and not for her lungs. Instructed to try DuoNeb treatments up to 4 times daily keep albuterol available for treatment when she is mobile. Would seek emergent care or call for the chest radiographic imaging order if symptoms worsen this week. 2. Allergic rhinitis due to pollen (J30.1: Allergic rhinitis due to pollen) May continue with antihistamines and nasal steroids 3. Benign hypertension (I10: Essential (primary) hypertension) The importance of the following were all reviewed with the patient: -Take Rx(s )as prescribed. There are simple Lifestyle Modifications that you can do to reduce your blood pressure. -Weight Reduction -Follow the DASH eating plan. More information about this eating plan can be found here: https://www.nhlbi.n ih.gov/health/healt h-topics/topics/matamoros h -Reduce Sodium (Salt) Intake to 2000mg per day. -Use Moderation when consuming alcohol. - To improve your health we recommend increasing your level of moderate exercise to at least 2.5 hrs per week. For more information, please visit the CDC Exercise and Fitness Recommendations at www.cdc.gov/physica lactivity/basics/in dex.htm 4. Class 2 severe obesity due to excess calories with serious comorbidity in adult (E66.01: Morbid (severe) obesity due to excess calories) The standard range for ages 18 and older is >=18.5 and < 25 kg/m2. Your BMI today was above this range, this falls in the overweight to obese category and there are medical benefits to weight loss. We can offer counselling, referral, and/or medical support in addressing this problem. Your BMI and weight management will be followed at subsequent visits. 5. BMI 40.0-44.9, adult (Z68.41: Body mass index [BMI] 40.0-44.9, adult) See #4 Orders: albuterol-ipratropi um, 3 mL, Inhalation, QID, 60 EA, Refill(s) 2, 177, cm, 03/10/24 18:16:00 EDT, Height/Length Dosing, 128.6, kg, 03/10/24 18:16:00 EDT, Weight Dosing azithromycin, 250 mg = 1 tab(s), Oral, As Directed, as directed on package labeling, X 5 day(s), # 6 tab(s), Refills(s) 0, Pharmacy: [facility], 177, cm, 03/10/24 18:16:00 EDT, Height/Length Dosing, 128.6, kg, 03/10/24 18:16:00 EDT, Weight Dosing fluconazole, See Instructions, Take one po q 3 day as needed for post op yeast, # 2 caplet(s), Refills(s) 0, Pharmacy: [id number], 177, cm, 03/10/24 18:16:00 EDT, Height/Length Dosing, 128.6, kg, (more content not included)... [facility] Comment on above: Result Comment: Elec tronically Signed By: SIRIA ARMENTA, Mara\.br\Date and Time Signed: 03/10/24 21:59 EDT Patient Educationon 03-10-20 Patient Education Pulmonary Medicine Asthma Attack Asthma attack, also called asthma flare or acute bronchospasm, is the sudden narrowing and tightening of the lower airways (bronchi) in the lungs, that can make it hard to breathe. The narrowing is caused by inflammation and tightening of the smooth muscle that wraps around the lower airways in the lungs. Asthma attacks may cause coughing, high-pitched whistling sounds when you breathe, most often when you breathe out (wheezing), trouble breathing (shortness of breath), and chest pain. The airways may produce extra mucus caused by the inflammation and irritation. During an asthma attack, it can be difficult to breathe. It is important to get treatment right away. Asthma attacks can range from minor to life-threatening. What are the causes? Possible causes or triggers of this condition include: ? Household allergens like dust, pet dander, and cockroaches. ? Mold and pollen from trees or grass. ? Air pollutants such as household strategy intern, aerosol sprays, strong odors, and smoke of any kind. ? Weather changes and cold air. ? Stress or strong emotions such as crying or laughing hard. ? Exercise or activity that requires a lot of energy. ? Certain medicines or medical conditions such as: ? Aspirin or beta-blockers. ? Infections or inflammatory conditions, such as a flu (influenza), a cold, pneumonia, or inflammation of the nasal membranes (rhinitis). ? Gastroesophageal reflux disease (GERD). GERD is a condition in which stomach acid backs up into your esophagus and spills into your trachea (windpipe), which can irritate your airways. What are the signs or symptoms? Symptoms of this condition include: ? Wheezing. ? Excessive coughing. This may only happen at night. ? Chest tightness or pain. ? Shortness of breath. ? Difficulty talking in complete sentences. ? Feeling like you cannot get enough air, no matter how hard you breathe (air hunger). How is this diagnosed? This condition may be diagnosed based on: ? A physical exam and your medical history. ? Your symptoms. ? Tests to check for other causes of your symptoms or other conditions that may have triggered your asthma attack. These tests may include: ? A chest X-ray. ? Blood tests. ? Lung function studies (spirometry) to evaluate the flow of air in your lungs. How is this treated? Treatment for this condition depends on the severity and cause of your asthma attack. ? For mild attacks, you may receive medicines through a hand-held inhaler (metered dose inhaler or MDI) or through a device that turns liquid medicine into a mist (nebulizer). These medicines include: ? Quick relief or rescue medicines that quickly relax the airways and lungs. ? Long-acting medicines that are used daily to prevent (control) your asthma symptoms. ? For moderate or severe attacks, you may be treated with steroid medicines by mouth or through an IV injection at the hospital. ? For severe attacks, you may need oxygen therapy or a breathing machine (ventilator). ? If your asthma attack was caused by an infection from bacteria, you will be given antibiotic medicines. Follow these instructions at home: Medicines ? Take zsgb-nih-kojjars and prescription medicines only as told by your health care provider. ? If you were prescribed an antibiotic medicine, take it as told by your health care provider. Do not stop using the antibiotic even if you start to feel better. ? Tell your doctor if you are or may be to make sure your asthma medicine is safe to use during . Avoiding triggers ? Keep track of things that trigger your asthma attacks. Avoid exposure to these triggers. ? Do not use any products that contain nicotine or tobacco. These products include cigarettes, chewing tobacco, and vaping devices, such as e-cigarettes. If you need help quitting, ask your health care provider. ? When there is a lot of pollen, air pollution, or humidity, keep windows closed and use an air conditioner or go to places with air conditioning. Asthma action plan ? Work with your health care provider to make a written plan for managing and treating your asthma attacks (asthma action plan). This plan should include: ? A list of your asthma triggers and how to avoid them. ? A list of symptoms that you may have during an asthma attack. ? Information about which medicine to take, when to take the medicine, and how much of the medicine to take. ? Information to help you understand your peak flow measurements. ? Daily actions that you can take to control your asthma symptoms. ? Contact information for your health care providers. ? If you have an asthma attack, act quickly. Follow the emergency steps on your written asthma action plan. This may prevent you from needing to go to the hospital. ? Talk to a family member or close friend about your asthma action plan and who to co (more content not included)... [facility] Physician Referralon 024 Physician Referral [id number] [facility] Ambulatory Visit Summaryon 0 12-10-2023 Ambulatory Visit Summary LEVI SOFIA :1960 Visit Date:12/10/2023 Ambulatory Visit Instructions Your Diagnosis Benign hypertension Combined hyperlipidemia Detrusor instability of bladder Fasting hyperglycemia Depression, major, recurrent, in partial remission Hypothyroidism, congenital GERD (gastroesophageal reflux disease) Asthma, moderate persistent Left lumbar radiculopathy Allergic rhinitis due to pollen TMJ syndrome Screening mammogram, encounter for Class 1 obesity due to excess calories in adult BMI 39.0-39.9,adult Low serum vitamin D Your Care Team Attending Physician - SIRIA ARMENTA, Mara Primary Care Physician - Mara BEVERLY MD This Is Your Medications List sumatriptan (SUMAtriptan 100 mg Tab) Contact prescribing physician if questions or concerns Misc Prescription (Nebulizer Machine) Misc Prescription (Nebulizer machine tubing/ kit) albuterol (ProAir HFA 90 mcg/inh inhalation aerosol) albuterol (albuterol 0.083% Inh Mamie 3 mL) atorvastatin (atorvastatin 20 mg Tab) citalopram (citalopram 20 mg Tab) diclofenac (diclofenac sodium 75 mg Oral EC Tab) docusate (Colace 100 mg Cap) duloxetine (duloxetine 30 mg oral delayed release capsule) fexofenadine (Carla 24 Hour Allergy oral tablet) fluconazole (Diflucan 150 mg Tab) fluticasone-vilante rol (Breo Ellipta 100 mcg-25 mcg inhalation powder) hydrochlorothiazide (hydrochlorothiazid e 12.5 mg Cap) levothyroxine (levothyroxine 137 mcg (0.137 mg) Tab) losartan (losartan 50 mg Tab) montelukast (montelukast 10 mg Tab) multivitamin (Daily Multiple Vitamins) mupirocin topical (mupirocin Top 2% Crm) omeprazole (omeprazole 20 mg Cap-DR) oxybutynin (oxybutynin 15 mg ER Tab) propranolol (propranolol 80 mg Cap-ER) triamcinolone nasal (Nasacort Allergy 24HR nasal spray) Procedures Performed Total knee replacement (05/16/2023), Knee replacement (04/02/2023), Colonoscopy (08/18/2021), Left foot (01/10/2021), Radiofrequency denervation of spinal facet joint of lumbar vertebra (08/18/2020), Injection of facet joint using fluoroscopic guidance (07/21/2020), Injection of facet joint using fluoroscopic guidance (07/07/2020), Cataract extraction and insertion of intraocular lens (07/05/2020), Injection of sacroiliac joint using fluoroscopic guidance (03/10/2020), Injection of sacroiliac joint using fluoroscopic guidance (12/02/2019), Sacroiliac joint injection (08/27/2019), Injection of sacroiliac joint using fluoroscopic guidance (05/28/2019), Injection of sacroiliac joint using fluoroscopic guidance (02/05/2019), Left Transforaminal Epidural Steroid Injection (11/13/2018), Epidural injection of lumbar spine using fluoroscopic guidance (09/25/2018), Transforaminal Epidural Steroid Injection (07/17/2018), epidural steroid injection (06/12/2018), transforaminal epidural steroid injection (04/10/2018), Cataract extraction and insertion of intraocular lens (04/01/2018), transforaminal steroid injection (04/18/2017), EVLT LGSV (07/11/2016), ABHINAV lumbosacral (03/29/2016), transforaminal steroid injection (12/22/2015), transforaminal steroid injection (09/15/2015), transforaminal steroid injection (06/30/2015), Transforaminal steriod injection (04/30/2015), Trasforaminal steriod injection (02/12/2015), Transforaminal steriod injection (11/20/2014), Transforaminal epidural steroid injection (05/22/2014), Epidural injection of lumbar spine using fluoroscopic guidance (01/28/2014), Epidural injection of lumbar spine using fluoroscopic guidance (11/19/2013), Epidural injection of lumbar spine using fluoroscopic guidance (09/24/2013), scraping of the elbow-right (2011), hysterectomy (2008), Tonsillectomy (1964), Bunion, Hysterectomy, Sinus congestion, sinus surgeries, Transforaminal epidural steroid injection. Discharge Vitals Heart Rate (Peripheral) 77 Respiratory Rate 16 Blood Pressure 132/80 Height 177 cm Height 70 in Weight 124 kg Weight 272.8 lb BMI 39.58 What to do next Scheduled Follow-Up Appointments Sunday 6:40 PM EDT With: Mara BEVERLY MD Where: [facility] [place] [facility] Family Medicine Office/Clini c Noteon 12-10-2023 Family Medicine Office/Clinic Note Chief Complaint 6mo chk up, rf sumitriptan to [place], needs orders to get labs at [facility] and would like to add vitamin levels. pt c/o urinary urgency/frequency, denies burning History of Present Illness The patient is a 63-year-old female who presents for a general health maintenance checkup. She just returned from [place] after spending over a month there with family. Really enjoyed herself. I suspected she had been on 2 rounds of antibiotics in close succession for her sinuses and toothache but she did not take the oral antibiotic the second time because when she picked it up, she was told that she is allergic to PENICILLIN and it was included in the CEFDINIR. Reassured her that is not correct. Still she has a lot of mucus down the back of her throat. Generally clear in color. No fevers or chills. She had 1 Diflucan. And took it after the antibiotic for dental issues. After her orthopedic hip surgery, she could not even make it to the bathroom to urinate. Most days, it is a problem. Her twins were born vaginally. She is still taking the oxybutynin 15 mg daily, but she does not think it is helping. She is not doing Kegel exercises. She guerrero not feel pressure in her vaginal area To indicate possible prolapse. Bowels are generally moving well no acute constipation. Her ear has been hurting only on the left side. She does not think she grinds her teeth at night but on further recall recognizes that the dentist has been saying enamel breakdown easier on her over the past 10 years asthma has been stable. Denies any recent exacerbations. Continues taking levothyroxine on an empty stomach. No acute hair loss or skin changes. Mood is also relatively stable Review of Systems PHQ Score Initial Depression Screen Score: 0 SCORE See HPI otherwise negative Physical Exam Vitals & Measurements HR: 77(Peripheral) RR: 16 BP: 132/80 SpO2: 96% HT: 70 in HT: 177 cm WT: 124 kg WT: 272.8 lb BMI: 39.58 The patient is adequately groomed, reasonably hydrated. Normocephalic, atraumatic. Conjunctiva clear. Pupils are symmetric. TMs are intact. No erythema. Grossly normal hearing. Oropharynx is pink and moist. Significant crepitance in the left TMJ, very tender with opening and closing the mouth and an audible click and a visible lateral deviation of the lower jaw. Nares with boggy turbinates, clear rhinorrhea. Oropharynx does have some copious clear drainage. No thyromegaly. Diminished but clear to auscultation. Regular rate and rhythm. No murmur, gallop, or rub. Soft, hyperactive bowel sounds, obese, nontender. No organomegaly. No flank tenderness. Ambulates with a walker due to severe right knee pain. Neuropsychiatric, cooperative, friendly, talkative. Assessment/Plan 1. Benign hypertension (I10: Essential (primary) hypertension) The importance of the following were all reviewed with the patient: -Take Rx(s )as prescribed. There are simple Lifestyle Modifications that you can do to reduce your blood pressure. -Weight Reduction -Follow the DASH eating plan. More information about this eating plan can be found here: https://www.nhlbi.n ih.gov/health/healt h-topics/topics/matamoros h -Reduce Sodium (Salt) Intake to 2000mg per day. -Use Moderation when consuming alcohol. - To improve your health we recommend increasing your level of moderate exercise to at least 2.5 hrs per week. For more information, please visit the CDC Exercise and Fitness Recommendations at www.cdc.gov/physica lactivity/basics/in dex.htm Ordered: Urnls Dip Stick Auto w/ Microscopy POC 06144 2. Combined hyperlipidemia (E78.2: Mixed hyperlipidemia) Continues on moderate intensity atorvastatin to help prevent cardiovascular disease risk progression. Requesting labs to be done before next follow-up. Ordered: Urnls Dip Stick Auto w/ Microscopy POC 38104 3. Detrusor instability of bladder (N32.81: Overactive bladder) Unfortunately the oxybutynin is really not having much of her effect on her. Her current urinalysis only has trace WBCs not likely UTI. Suggesting a visit with urology to see if she may have detrusor instability that may respond to Botox or similar. Continue limiting caffeinated beverages maintain scheduled voiding and reduce nocturnal fluid intake Ordered: [facility] Internal Ambulatory Referral Urnls Dip Stick Auto w/ Microscopy POC 08649 4. Fasting hyperglycemia (R73.01: Impaired fasting glucose) Continue limiting carbohydrates in the diet to prevent any progression diabetes mellitus Ordered: Urnls Dip Stick Auto w/ Microscopy POC 83204 5. Depression, major, recurrent, in partial remission (F33.41: Major depressive disorder, recurrent, in partial remission) Doing nicely with venlafaxine we will continue the same patient defers any need for counseling family is very supportive and she is doing much better now that she is retired from work Ordered: Urnls Dip Stick Auto w/ Microscopy POC 47609 6. Hypothyroidism, congenital (E03.1: Congenital hypothyroidism witho (more content not included)... [facility] Comment on above: Result Comment: Elec tronically Signed By: SIRIA ARMENTA, Mara\.br\Date and Time Signed: 12/10/23 21:26 EST Patient Educationon 12-10-19 Patient Education Nutrition DASH Eating Plan DASH stands for Dietary Approaches to Stop Hypertension. The DASH eating plan is a healthy eating plan that has been shown to: ? Reduce high blood pressure (hypertension). ? Reduce your risk for type 2 diabetes, heart disease, and stroke. ? Help with weight loss. What are tips for following this plan? Reading food labels ? Check food labels for the amount of salt (sodium) per serving. Choose foods with less than 5 percent of the Daily Value of sodium. Generally, foods with less than 300 milligrams (mg) of sodium per serving fit into this eating plan. ? To find whole grains, look for the word whole as the first word in the ingredient list. Shopping ? Buy products labeled as low-sodium or no salt added. ? Buy fresh foods. Avoid canned foods and pre-made or frozen meals. Cooking ? Avoid adding salt when cooking. Use salt-free seasonings or herbs instead of table salt or sea salt. Check with your health care provider or pharmacist before using salt substitutes. ? Do not jennings foods. Cook foods using healthy methods such as baking, boiling, grilling, roasting, and broiling instead. ? Cook with heart-healthy oils, such as olive, canola, avocado, soybean, or sunflower oil. Meal planning ? Eat a balanced diet that includes: ? 4 or more servings of fruits and 4 or more servings of vegetables each day. Try to fill one-half of your plate with fruits and vegetables. ? 6?8 servings of whole grains each day. ? Less than 6 oz (170 g) of lean meat, poultry, or fish each day. A 3-oz (85-g) serving of meat is about the same size as a deck of cards. One egg equals 1 oz (28 g). ? 2?3 servings of low-fat dairy each day. One serving is 1 cup (237 mL). ? 1 serving of nuts, seeds, or beans 5 times each week. ? 2?3 servings of heart-healthy fats. Healthy fats called omega-3 fatty acids are found in foods such as walnuts, flaxseeds, fortified milks, and eggs. These fats are also found in cold-water fish, such as sardines, salmon, and mackerel. ? Limit how much you eat of: ? Canned or prepackaged foods. ? Food that is high in trans fat, such as some fried foods. ? Food that is high in saturated fat, such as fatty meat. ? Desserts and other sweets, sugary drinks, and other foods with added sugar. ? Full-fat dairy products. ? Do not salt foods before eating. ? Do not eat more than 4 egg yolks a week. ? Try to eat at least 2 vegetarian meals a week. ? Eat more home-cooked food and less restaurant, buffet, and fast food. Lifestyle ? When eating at a restaurant, ask that your food be prepared with less salt or no salt, if possible. ? If you drink alcohol: ? Limit how much you use to: ? 0?1 drink a day for women who are not . ? 0?2 drinks a day for men. ? Be aware of how much alcohol is in your drink. In the [place] one drink equals one 12 oz bottle of beer (355 mL), one 5 oz glass of wine (148 mL), or one 1? oz glass of hard liquor (44 mL). General information ? Avoid eating more than 2,300 mg of salt a day. If you have hypertension, you may need to reduce your sodium intake to 1,500 mg a day. ? Work with your health care provider to maintain a healthy body weight or to lose weight. Ask what an ideal weight is for you. ? Get at least 30 minutes of exercise that causes your heart to beat faster (aerobic exercise) most days of the week. Activities may include walking, swimming, or biking. ? Work with your health care provider or dietitian to adjust your eating plan to your individual calorie needs. What foods should I eat? Fruits All fresh, dried, or frozen fruit. Canned fruit in natural juice (without added sugar). Vegetables Fresh or frozen vegetables (raw, steamed, roasted, or grilled). Low-sodium or reduced-sodium tomato and vegetable juice. Low-sodium or reduced-sodium tomato sauce and tomato paste. Low-sodium or reduced-sodium canned vegetables. Grains Whole-grain or whole-wheat bread. Whole-grain or whole-wheat pasta. Brown rice. Oatmeal. Quinoa. Bulgur. Whole-grain and low-sodium cereals. Mirna bread. Low-fat, low-sodium crackers. Whole-wheat flour tortillas. Meats and other proteins Skinless chicken or turkey. Ground chicken or turkey. Pork with fat trimmed off. Fish and seafood. Egg whites. Dried beans, peas, or lentils. Unsalted nuts, nut butters, and seeds. Unsalted canned beans. Lean cuts of beef with fat trimmed off. Low-sodium, lean precooked or cured meat, such as sausages or meat loaves. Dairy Low-fat (1%) or fat-free (skim) milk. Reduced-fat, low-fat, or fat-free cheeses. Nonfat, low-sodium ricotta or cottage cheese. Low-fat or nonfat yogurt. Low-fat, low-sodium cheese. Fats and oils Soft margarine without trans fats. Vegetable oil. Reduced-fat, low-fat, or light mayonnaise and salad dressings (reduced-sodium). Canola, safflower, olive, avocado, soybean, and sunflower oils. Avocado. Seasonings and condiments Herbs. Spices. Seasoni (more content not included)... [facility] Patient Correspondenceon Patient Correspondence [id number] 0F#[id number] [facility] Patient Correspondenceon Patient Correspondence [phone] [id number]#[id number] [facility] Family Medicine Office/Clini c Noteon 10-17-2023 Family Medicine Office/Clinic Note Chief Complaint possible sinus infection HPI Staff 63 year old female presents with possible sinus infection. Sinus pressure, itchy ears, drainage, symptoms started about 5 days ago. History of Present Illness rm 1 Portions of this record may have been created with voice recognition artificial intelligence software, specifically [employer], [employer] and or [employer]. Substitutions may have occurred due to the inherent limitations of voice recognition and artificial intelligence software. Staff hpi reviewed. PT is a 63-year-old female presents for sinus pressure, pressure behind the eyes and in the face. States itchy ears drainage symptoms began 5 days ago. Allergy to Augmentin Avelox Parafon forte penicillin. Review of Systems PHQ Score Initial Depression Screen Score: 0 SCORE Physical Exam Vitals & Measurements T: 36.6 ?C(Temporal Artery) HR: 65(Peripheral) BP: 128/66 SpO2: 97% HT: 70 in HT: 178 cm WT: 127 kg WT: 279.4 lb BMI: 40.08 General - alert no acute distress Skin - warm dry Head -normocephalic atraumatic ENT-TMs clear mildly erythematous mildly bulging bilaterally no pharyngeal erythema or exudates moist oral mucosa Cardiovascular - regular rate regular rhythm Respiratory - lungs clear to auscultation, non-labored respirations, breath sounds equal Assessment/Plan 1. Sinusitis (J32.9: Chronic sinusitis, unspecified) Given duration of symptoms and exam, will cover for sinusitis with doxycycline. Finish entire course. Fluids/rest, PRN tylenol/ibuprofen for pain and/or fever encouraged. Follow up with PCP if not improving over next 5-7 days with ATB or significantly worsening. Patient and/or parent verbalized understanding of treatment plan. 2. BMI 40.0-44.9, adult (Z68.41: Body mass index [BMI] 40.0-44.9, adult) The standard range for ages 18 and older is >=18.5 and < 25 kg/m2. Your BMI today was above this range, this falls in the overweight to obese category and there are medical benefits to weight loss. We can offer counselling, referral, and/or medical support in addressing this problem. Your BMI and weight management will be followed at subsequent visits. Orders: doxycycline, 100 mg = 1 cap(s), Oral, BID, # 20 cap(s), Refills(s) 0, Pharmacy: [id number], 178, cm, 10/17/23 14:51:00 EST, Height/Length Dosing, 127, kg, 10/17/23 14:51:00 EST, Weight Dosing Follow-up With When Contact Information SIRIA ARMENTA, Mara, [facility] [address] [place] [address]- Additional Instructions: Patient Education Sinus Infection, Adult, [id number]-wu-[id number] BMI for Adults Problem List/Past Medical History Ongoing Allergic rhinitis due to pollen Asthma, moderate persistent Benign hypertension BMI 40.0-44.9, adult Combined hyperlipidemia Depression, major, recurrent, in partial remission Detrusor instability of bladder Encounter for well adult exam with abnormal findings Fasting hyperglycemia GERD (gastroesophageal reflux disease) Gout Hypothyroidism, congenital Left lumbar radiculopathy Migraine headache Morbid obesity Osteoarthritis of left knee Personal history of colonic polyps Rotator cuff tear arthropathy of right shoulder Screening mammogram, encounter for Well adult exam Historical Acid reflux Actinic keratosis of left cheek Allergic rhinitis Asthma Asthma Asthma Class 2 obesity due to excess calories in adult Dysesthesia Encounter for wellness examination Epicondylitis Fatigue Hyperlipidemia Hypertension Hypertension Hypertension Hypothyroid Moderate persistent asthma with exacerbation Nasal mucositis (ulcerative) Nasal sinus Obesity Other acute sinusitis Pain in joint of left shoulder Pain, dental Recurrent frontal sinusitis TMJ - Temporomandibular joint Viral pharyngoconjunctivi tis Visit for screening mammogram Procedure/Surgical History Total knee replacement (05/16/2023), Knee replacement (04/02/2023), Colonoscopy (08/18/2021), Left foot (01/10/2021), Radiofrequency denervation of spinal facet joint of lumbar vertebra (08/18/2020), Injection of facet joint using fluoroscopic guidance (07/21/2020), Injection of facet joint using fluoroscopic guidance (07/07/2020), Cataract extraction and insertion of intraocular lens (07/05/2020), Injection of sacroiliac joint using fluoroscopic guidance (03/10/2020), Injection of sacroiliac joint using fluoroscopic guidance (12/02/2019), Sacroiliac joint injection (08/27/2019), Injection of sacroiliac joint using fluoroscopic guidance (05/28/2019), Injection of sacroiliac joint using fluoroscopic guidance (02/05/2019), Left Transforaminal Epidural Steroid Injection (11/13/2018), Epidural injection of lumbar spine using fluoroscopic guidance (09/25/2018), Transforaminal Epidural Steroid Injection (07/17/2018), epidural steroid injection (06/12/2018), transforaminal epidural steroid injection (04/10/2018), Cataract extract (more content not included)... [facility] Comment on above: Result Comment: Elec tronically Signed By: Randy ZEPEDA, Timothy Delgadillo\.br\Date and Time Signed: 10/17/23 15:12 EST Patient Educationon 10-17-20 23 Patient Education Infectious Disease Sinus Infection, Adult A sinus infection is soreness and swelling (inflammation) of your sinuses. Sinuses are hollow spaces in the bones around your face. They are located: ? Around your eyes. ? In the middle of your forehead. ? Behind your nose. ? In your cheekbones. Your sinuses and nasal passages are lined with a fluid called mucus. Mucus drains out of your sinuses. Swelling can trap mucus in your sinuses. This lets germs (bacteria, virus, or fungus) grow, which leads to infection. Most of the time, this condition is caused by a virus. What are the causes? ? Allergies. ? Asthma. ? Germs. ? Things that block your nose or sinuses. ? Growths in the nose (nasal polyps). ? Chemicals or irritants in the air. ? A fungus. This is rare. What increases the risk? ? Having a weak body defense system (immune system). ? Doing a lot of swimming or diving. ? Using nasal sprays too much. ? Smoking. What are the signs or symptoms? The main symptoms of this condition are pain and a feeling of pressure around the sinuses. Other symptoms include: ? Stuffy nose (congestion). This may make it hard to breathe through your nose. ? Runny nose (drainage). ? Soreness, swelling, and warmth in the sinuses. ? A cough that may get worse at night. ? Being unable to smell and taste. ? Mucus that collects in the throat or the back of the nose (postnasal drip). This may cause a sore throat or bad breath. ? Being very tired (fatigued). ? A fever. How is this diagnosed? ? Your symptoms. ? Your medical history. ? A physical exam. ? Tests to find out if your condition is short-term (acute) or long-term (chronic). Your doctor may: ? Check your nose for growths (polyps). ? Check your sinuses using a tool that has a light on one end (endoscope). ? Check for allergies or germs. ? Do imaging tests, such as an MRI or CT scan. How is this treated? Treatment for this condition depends on the cause and whether it is short-term or long-term. ? If caused by a virus, your symptoms should go away on their own within 10 days. You may be given medicines to relieve symptoms. They include: ? Medicines that shrink swollen tissue in the nose. ? A spray that treats swelling of the nostrils. ? Rinses that help get rid of thick mucus in your nose (nasal saline washes). ? Medicines that treat allergies (antihistamines). ? Wohh-etq-qmxibvi pain relievers. ? If caused by bacteria, your doctor may wait to see if you will get better without treatment. You may be given antibiotic medicine if you have: ? A very bad infection. ? A weak body defense system. ? If caused by growths in the nose, surgery may be needed. Follow these instructions at home: Medicines ? Take, use, or apply ofch-tpz-gltkikk and prescription medicines only as told by your doctor. These may include nasal sprays. ? If you were prescribed an antibiotic medicine, take it as told by your doctor. Do not stop taking it even if you start to feel better. Hydrate and humidify ? Drink enough water to keep your pee (urine) pale yellow. ? Use a cool mist humidifier to keep the humidity level in your home above 50%. ? Breathe in steam for 10?15 minutes, 3?4 times a day, or as told by your doctor. You can do this in the bathroom while a hot shower is running. ? Try not to spend time in cool or dry air. Rest ? Rest as much as you can. ? Sleep with your head raised (elevated). ? Make sure you get enough sleep each night. General instructions ? Put a warm, moist washcloth on your face 3?4 times a day, or as often as told by your doctor. ? Use nasal saline washes as often as told by your doctor. ? Wash your hands often with soap and water. If you cannot use soap and water, use hand load test mechanic. ? Do not smoke. Avoid being around people who are smoking (secondhand smoke). ? Keep all follow-up visits. Contact a doctor if: ? You have a fever. ? Your symptoms get worse. ? Your symptoms do not get better within 10 days. Get help right away if: ? You have a very bad headache. ? You cannot stop vomiting. ? You have very bad pain or swelling around your face or eyes. ? You have trouble seeing. ? You feel confused. ? Your neck is stiff. ? You have trouble breathing. These symptoms may be an emergency. Get help right away. Call 911. ? Do not wait to see if the symptoms will go away. ? Do not drive yourself to the hospital. Summary ? A sinus infection is swelling of your sinuses. Sinuses are hollow spaces in the bones around your face. ? This condition is caused by tissues in your nose that become inflamed or swollen. This traps germs. These can lead to infection. ? If you were prescribed an antibiotic medicine, take it as told by your doctor. Do not stop taking it even if you start to feel better. ? Keep all follow-up visits (more content not included)... Normal [facility] Consultation Noteon 09-17-20 Consultation Note [id number] 3#1.00TIFF [facility] Consultation Noteon 07-12-20 Consultation Note [id number] 0D#1.00CD:127 [facility] Retail - Clinical Noteon Retail - Clinical Note [id number] 30#1.00CD:127 [facility] Consultation Noteon 05-31-20 23 Consultation Note [id number] E9#1.00CD:127 [facility] IntraOperative Documentson 0 05-24-2023 IntraOperative Documents [id number]#1.00CD:127 [facility] IntraOperative Documentson 0 05-23-2023 IntraOperative Documents [id number] 576#1.00CD:127 [facility] Discharge Instructionson Discharge Instructions [id number] 94#1.00CD:127 [facility] Transfer Documentson 023 Transfer Documents [id number] 58#1.00CD:127 [facility] Operative Reporton Operative Report Patient: LEVI SOFIA Age: 63 years Sex: Female : 1960 Associated Diagnoses: None Author: MD Cunningham Ahmad F Postoperative Information Date/ Time: 05/16/2023 14:15:00 Preoperative Diagnosis: Acute postoperative pain., Per surgeon request for post-op pain management. Postoperative Diagnosis: Acute postoperative pain, Per surgeon request for post-op pain management. Procedure: adductor canal nerve block. Anesthesia Method: Local, Monitored anesthesia care. Performed by: MD Cunningham Ahmad F. Medications: Midazolam 2mg, Fentanyl . Complications: None. Notes: The patient was interviewed and examined prior to the planned operation. Anesthesia options were discussed including the adductor canal nerve block for postoperative analgesia. This discussion included a description of the procedure, risks and benefits, as well as alternatives to the block. The patient's questions were addressed and the patient elected to proceed with the adductor canal nerve block. After a timeout, the patient was placed in the supine position and monitored with continuous pulse oximetry, non-invasive blood pressure, and electrocardiography . The thigh was prepped with CHG and sterilely draped. Anatomical landmarks were identified with ultrasonographic guidance. A 2 x 22 gauge Stimuplex needle was inserted without pain or paresthesias. With the needle held in place, and with intermittent attempts for aspiration of blood, 20 cc of 0.5% Ropivacaine was injected at 5cc intervals. Negative aspiration for blood was confirmed at every 5cc interval. No signs or symptoms of intravascular or intraneural injection were evidenced. The patient tolerated the procedure well without complications. . [facility] Comment on above: Result Comment: Elec tronically Signed By: MD Cunningham Ahmad F\.br\Date and Time Signed: 05/18/23 08:08 EDT Progress Note-Physicianon Progress Note-Physician Patient: LEVI SOFIA Age: 63 years Sex: Female : 1960 Associated Diagnoses: None Author: MD Cunningham Ahmad F Preoperative Information Time patient last ate or drank:=== (npo 8 hours) Anesthesia history: Patient history: No prior anesthesia problems. Re-evaluation prior to induction: Completed, Initial evaluation reviewed. Review of Systems Respiratory: No shortness of breath. Cardiovascular: No chest pain. Hematology/Lymphati cs: No bruising tendency, No bleeding tendency. Health Status Allergies: Allergic Reactions (All) Severity Not Documented Augmentin- Hives. Avelox- Hives. Parafon Forte DSC- Hives. Penicillin- Hives. Penicillin V Potassium- Unknown. Canceled/Inactive Reactions (All) Severity Not Documented Antibiotic- No reactions were documented. Current medications: (Selected) Prescriptions Prescribed Bactrim D.S. 800 mg-160 mg Tab: 1 tab(s), Oral, BID for 14 day(s), 28 tab(s), Refill(s) 0, [facility], 177, cm, 05/16/23 13:32:00 EDT, Height/Length Dosing, 127, kg, 05/16/23 13:31:00 EDT, Weight Dosing Bactrim D.S. 800 mg-160 mg Tab: 1 tab(s), Oral, BID for 14 day(s), 28 tab(s), Refill(s) 0, [facility], 177, cm, 05/16/23 13:32:00 EDT, Height/Length Dosing, 127, kg, 05/16/23 13:31:00 EDT, Weight Dosing Colace 100 mg Cap: 100 mg = 1 cap(s), Oral, BID, # 20 cap(s), Refills(s) 0, Pharmacy: [facility], 177, cm, 05/16/23 13:32:00 EDT, Height/Length Dosing, 127, kg, 05/16/23 13:31:00 EDT, Weight Dosing Colace 100 mg Cap: 100 mg = 1 cap(s), Oral, BID, # 20 cap(s), Refills(s) 0, Pharmacy: [facility], 177, cm, 03/23/23 10:36:00 EDT, Height/Length Dosing, 132, kg, 03/23/23 10:36:00 EDT, Weight Dosing Colace 100 mg Cap: 100 mg = 1 cap(s), Oral, BID, # 20 cap(s), Refills(s) 0, Pharmacy: [facility], 177, cm, 05/16/23 13:32:00 EDT, Height/Length Dosing, 127, kg, 05/16/23 13:31:00 EDT, Weight Dosing Diflucan 150 mg Tab: See Instructions, Take one po q 3 day as needed for post op yeast, # 2 caplet(s), Refills(s) 0, Pharmacy: [facility], 177, cm, 03/23/23 10:36:00 EDT, Height/Length Dosing, 132, kg, 03/23/23 10:36:00 EDT, Weight Dosing Nasacort Allergy 24HR nasal spray: 110 mcg, 2 spray(s), Nasal, Daily, 3 EA, Refill(s) 1, [id number], 178, cm, 12/16/20 10:55:00 EST, Height/Length Dosing, 125, kg, 12/16/20 10:55:00 EST, Weight Dosing Nebulizer Machine: Nebulizer Machine, See Instructions, 1 EA, 0, use with medication for inhalaiton dx.J45.41, [facility], 179, cm, 09/27/22 13:30:00 EST, Height/Length Dosing, 130, kg, 09/27/22 13:30:00 EST, Weight Dosing Nebulizer machine tubing/ kit: Nebulizer machine tubing/ kit, See Instructions, 1 EA, 0, use with nebulizer medication dx. J45.41, [facility], 179, cm, 09/27/22 13:30:00 EST, Height/Length Dosing, 130, kg, 09/27/22 13:30:00 EST, Weight Dosing Percocet 5 mg-325 mg oral tablet: See Instructions, 30 tab(s), Refill(s) 0, 1-2 po q 4 prn pain, [facility], 177, cm, 05/16/23 13:32:00 EDT, Height/Length Dosing, 127, kg, 05/16/23 13:31:00 EDT, Weight Dosing Percocet 5 mg-325 mg oral tablet: See Instructions, 50 tab(s), Refill(s) 0, Take one to two every 4 hours as needed for pain., [facility], 177, cm, 03/23/23 10:36:00 EDT, Height/Length Dosing, 132, kg, 03/23/23 10:36:00 EDT, Weight Dosing Percocet 5 mg-325 mg oral tablet: See Instructions, 50 tab(s), Refill(s) 0, Take one to two every 4 hours as needed for pain., [facility], 177, cm, 05/16/23 13:32:00 EDT, Height/Length Dosing, 127, kg, 05/16/23 13:31:00 EDT, Weight Dosing ProAir HFA 90 mcg/inh inhalation aerosol: 2 puff(s), Inhalation, q6hr for wheezing, 1 EA, Refill(s) 1, [facility], 179, cm, 06/28/22 9:21:00 EDT, Height/Length Dosing, 129, kg, 06/28/22 9:21:00 EDT, Weight Dosing SUMAtriptan 100 mg Tab: 100 mg = 1 tab(s), Oral, As Directed, PRN Migraine headache, Take at onset of migraine. May repeat dose in 1 hour if no relief, # 9 tab(s), Refills(s) 0, Pharmacy: [facility], 179, cm, 01/19/23 16:50:00 EDT, Height/Length Dosing, 133.5... Symbicort 160/4.5 inhalation aerosol with adapter: 2 puff(s), Inhalation, BID, 3 EA, Refill(s) 1, [facility], 179, cm, 05/18/22 15:39:00 EDT, Height/Length Dosing, 129, kg, 05/18/22 15:39:00 EDT, Weight Dosing albuterol 0.083% Inh Mamie 3 mL: 0.083% - 3mL dosing units, Inhalation, q4hr as needed for wheezing, 30 EA, Refill(s) 0 aspirin 325 mg Tab: 325 mg = 1 tab(s), Oral, Daily, X 30 day(s), # 30 tab(s), Refills(s) 0, Pharmacy: [facility], 177, cm, 05/16/23 13:32:00 EDT, Height/Length Dosing, 127, kg, 05/16/23 13:31:00 EDT, Weight Dosing aspirin 325 mg Tab: 325 mg = 1 tab(s), Oral, Daily, X 30 day(s), # 30 tab(s), Refills(s) 0, Pharmacy: [facility], 177, cm, 05/16/23 13:32:00 EDT, Height/Length (more content not included)... Normal [facility] Comment on above: Result Comment: Elec tronically Signed By: MD Marisa, Fito F\.br\Date and Time Signed: 05/18/23 08:05 EDT Auto Diffon 05-17-2023 Basophils/100 WBC (Bld) 0.6 % Normal 0.0-2.0 [facility] Comment on above: Order Comment: Order Added by Discern Expert. Performed By: #### 1 [id number], 3710540, 7008491, 6865355, 4667005, 3609828 ####[address] [place] [address] Basophils/Leukocyte s Auto (Bld) [Pure # fraction] 0.1 E9/L Normal 0.0-0.2 [facility] Comment on above: Order Comment: Order Added by Discern Expert. Performed By: #### 1 [id number], 2447058, 0909931, 5234990, 6767581, 4735680 ####[address] [address] Eosinophils/100 WBC (Bld) 0.0 % Normal 0.0-8.0 [facility] Comment on above: Order Comment: Order Added by Discern Expert. Performed By: #### 1 [id number], 6979713, 2761881, 2899964, 6638382, 0711172 ####[address] [address] Eosinophils/Leukocy blayne Auto (Bld) [Pure # fraction] 0.0 E9/L Normal 0.0-0.5 [facility] Comment on above: Order Comment: Order Added by Discern Expert. Performed By: #### 1 5445858, 7169000, 8484544, 6516539, 7745711, 4790961 ####[address] [address] Lymphocytes/100 WBC (Bld) 10.7 % Low 14.0-50.0 [facility] Comment on above: Order Comment: Order Added by Discern Expert. Performed By: #### 1 9640143, 9578527, 5906616, 6595022, 3868979, 8307723 ####[address] [address] Lymphocytes/Leukocy blayne Auto (Bld) [Pure # fraction] 1.0 E9/L Normal 1.0-4.0 [facility] Comment on above: Order Comment: Order Added by Discern Expert. Performed By: #### 1 9973206, 7661502, 7658563, 1037758, 1681251, 9719055 ####[address] [place] [address] Monocytes/100 WBC (Bld) 4.7 % Normal 4.0-14.0 [facility] Comment on above: Order Comment: Order Added by Discern Expert. Performed By: #### 1 9108138, 2325697, 8370662, 7507910, 0259031, 8956913 ####[address] [place] [address] Monocytes/Leukocyte s Auto (Bld) [Pure # fraction] 0.4 E9/L Normal 0.2-1.0 [facility] Comment on above: Order Comment: Order Added by Discern Expert. Performed By: #### 1 [id number], 6195171, 6273042, 7405017, 9761891, 8416151 ####[address] [address] Neutrophils/100 WBC (Bld) 84.0 % High 36.0-75.0 [facility] Comment on above: Order Comment: Order Added by Discern Expert. Performed By: #### 1 5313222, 2342482, 6328353, 6210541, 7039895, 4445239 ####[address] [address] Neutrophils/Leukocy blayne Auto (Bld) [Pure # fraction] 8.1 E9/L High 2.0-7.5 [facility] Comment on above: Order Comment: Order Added by Discern Expert. Performed By: #### 1 7596651, 0897838, 7015369, 3933060, 6310262, 2505659 ####[address] [place] [address] BUNon 05-17-2023 Urea nitrogen [Mass/Vol] 26 mg/dL High 5-21 [facility] Comment on above: Performed By: #### 1 5267241, 3302869, 3542438, 1401359, 4905339, 6201661 ####[address] [place] [address] CBC w/ Auto Diffon 3 Erythrocyte distribution width (RBC) [Ratio] 14.9 % High 10.9-14.2 [facility] Comment on above: Performed By: #### 1 6641449, 4858372, 9531823, 0073832, 5132239, 8697894 ####[address] [place] [address] Hematocrit (Bld) [Volume fraction] 36.4 % Normal 34.0-46.0 [facility] Comment on above: Result Comment: Resu lts Verified By Repeat Analysis Performed By: #### 1 8637590, 4012646, 0005018, 5429987, 8470373, 3947966 ####[address] [address] Hemoglobin (Bld) [Mass/Vol] 12.1 g/dL Normal 12.0-16.0 [facility] Comment on above: Result Comment: Resu lts Verified By Repeat Analysis Performed By: #### 1 7752921, 6823228, 3047830, 1815625, 3901701, 2347094 ####[address] [address] MCH (RBC) [Entitic mass] 30.9 pg Normal 27.0-34.0 [facility] Comment on above: Performed By: #### 1 9559953, 9349366, 5687069, 2048491, 1828763, 8733241 ####[facility] [address] [place] [address] MCHC (RBC) [Mass/Vol] 33.2 g/dL Normal 31.4-36.0 [facility] Comment on above: Performed By: #### 1 4811552, 8813924, 9426336, 8753496, 2302118, 0096820 ####[facility] [address] [place] [address] MCV (RBC) [Entitic vol] 93.1 fL Normal 80.0-100.0 [facility] Comment on above: Performed By: #### 1 8609062, 9652822, 0447454, 8170744, 4016252, 3758420 ####[facility] [address] [place] [address] Platelet mean volume (Bld) [Entitic vol] 7.8 fL Normal 6.4-10.8 [facility] Comment on above: Performed By: #### 1 0489048, 4086758, 8472086, 2782030, 0479965, 9974135 ####[facility] [address] [place] [address] Platelets (Bld) [#/Vol] 196.0 E9/L Normal 150.0-500.0 [facility] Comment on above: Performed By: #### 1 2009293, 1543240, 8153234, 3529412, 8948818, 5711487 ####[address] [place] [address] RBC (Bld) [#/Vol] 3.9 E12/L Low 4.3-5.9 [facility] Comment on above: Performed By: #### 1 1632291, 1171179, 8961271, 3039364, 6022835, 6702853 ####[facility] [address] [place] [address] WBC corrected for nucl RBC Auto (Bld) [#/Vol] 9.6 E9/L Normal 4.0-11.0 [facility] Comment on above: Performed By: #### 1 2334805, 2094807, 2402858, 3004806, 4479812, 8583516 ####[facility] [address] [place] [address] CHEMISTRYOrdered By: SYSTEM SYSTEM on 05-17-2023 Anion gap [Moles/Vol] 10 mmol/L Normal 6 - 16 mEq/L [facility] Chloride [Moles/Vol] 105 mmol/L Normal 101 - 111 mmol/L [facility] CO2 [Moles/Vol] 27 mmol/L Normal 21 - 31 mmol/L [facility] Creatinine [Mass/Vol] 1.1 mg/dL Normal 0.5 - 1.3 mg/dL [facility] Remisol GFR/1.73 sq M.predicted among non-blacks MDRD (S/P/Bld) [Vol rate/Area] 56 mL/min/1.73 m2 Low >=59mL/min/1.73 m2 [facility] Chem S Potassium [Moles/Vol] 4.7 mmol/L Normal 3.5 - 5.3 mmol/L [facility] Remisol Sodium [Moles/Vol] 137 mmol/L Normal 135 - 145 mmol/L [facility] Remisol Urea nitrogen [Mass/Vol] 26 mg/dL High 5 - 21 mg/dL [facility] Remisol Consent for Anesthesiaon Consent for Anesthesia [id number]#[id number]:127 Normal [facility] Creatinineon 05-17-2023 Creatinine [Mass/Vol] 1.1 mg/dL Normal 0.5-1.3 [facility] Comment on above: Performed By: #### 1 0568392, 6714018, 6005069, 8588900, 0872819, 4960911 ####[facility] [address] [place] [address] Discharge Note-Nursingon Discharge Note-Nursing BISMARKLEVI :1960 Visit Date:05/16/2023 Inpatient Discharge Instructions Your Care Team Admitting Physician - Melva Grimaldo DO Consulting Physician - Zahra KHANNA Referring Physician - Melva Grimaldo DO Reason for Your Visit STATUS POST LEFT TOTAL KNEE ARTHROPLASTY LEFT PATELLA DISLOCATION Your Diagnosis Extensor mechanism malalignment of knee History of total right knee replacement Asthma, moderate persistent BMI 40.0-44.9, adult Benign hypertension Depression, major, recurrent, in partial remission GERD (gastroesophageal reflux disease) Hypothyroidism, congenital Tests Performed Automated Diff CBC w/ Indices eGFR Fasting Glucose UA With Cult Reflex XR Knee 1 or 2 Views Left This Is Your Medications List Misc Prescription (Nebulizer Machine) Misc Prescription (Nebulizer machine tubing/ kit) acetaminophen-chlor zoxazone (Extra Strength Tylenol Aches and Strains) acetaminophen-oxyco done (Percocet 5 mg-325 mg oral tablet) acetaminophen-oxyco done (Percocet 5 mg-325 mg oral tablet) acetaminophen-oxyco done (Percocet 5 mg-325 mg oral tablet) albuterol (ProAir HFA 90 mcg/inh inhalation aerosol) albuterol (albuterol 0.083% Inh Mamie 3 mL) aspirin (aspirin 325 mg Tab) aspirin (aspirin 325 mg Tab) atorvastatin (atorvastatin 20 mg Tab) budesonide-formoter ol (Symbicort 160/4.5 inhalation aerosol with adapter) citalopram (citalopram 20 mg Tab) diclofenac (diclofenac sodium 75 mg Oral EC Tab) docusate (Colace 100 mg Cap) docusate (Colace 100 mg Cap) docusate (Colace 100 mg Cap) duloxetine (duloxetine 30 mg oral delayed release capsule) fexofenadine (Carla 24 Hour Allergy oral tablet) fluconazole (Diflucan 150 mg Tab) hydrochlorothiazide (hydrochlorothiazid e 12.5 mg Cap) levothyroxine (levothyroxine 137 mcg (0.137 mg) Tab) losartan (losartan 50 mg Tab) montelukast (montelukast 10 mg Tab) multivitamin (Daily Multiple Vitamins) mupirocin topical (mupirocin Top 2% Crm) omeprazole (omeprazole 20 mg Cap-DR) oxybutynin (oxybutynin 15 mg ER Tab) propranolol (propranolol 80 mg Cap-ER) sulfamethoxazole-tr imethoprim (Bactrim D.S. 800 mg-160 mg Tab) sulfamethoxazole-tr imethoprim (Bactrim D.S. 800 mg-160 mg Tab) sumatriptan (SUMAtriptan 100 mg Tab) triamcinolone nasal (Nasacort Allergy 24HR nasal spray) Procedure History Knee replacement (04/02/2023), Colonoscopy (08/18/2021), Left foot (01/10/2021), Radiofrequency denervation of spinal facet joint of lumbar vertebra (08/18/2020), Injection of facet joint using fluoroscopic guidance (07/21/2020), Injection of facet joint using fluoroscopic guidance (07/07/2020), Cataract extraction and insertion of intraocular lens (07/05/2020), Injection of sacroiliac joint using fluoroscopic guidance (03/10/2020), Injection of sacroiliac joint using fluoroscopic guidance (12/02/2019), Sacroiliac joint injection (08/27/2019), Injection of sacroiliac joint using fluoroscopic guidance (05/28/2019), Injection of sacroiliac joint using fluoroscopic guidance (02/05/2019), Left Transforaminal Epidural Steroid Injection (11/13/2018), Epidural injection of lumbar spine using fluoroscopic guidance (09/25/2018), Transforaminal Epidural Steroid Injection (07/17/2018), epidural steroid injection (06/12/2018), transforaminal epidural steroid injection (04/10/2018), Cataract extraction and insertion of intraocular lens (04/01/2018), transforaminal steroid injection (04/18/2017), EVLT LGSV (07/11/2016), ABHINAV lumbosacral (03/29/2016), transforaminal steroid injection (12/22/2015), transforaminal steroid injection (09/15/2015), transforaminal steroid injection (06/30/2015), Transforaminal steriod injection (04/30/2015), Trasforaminal steriod injection (02/12/2015), Transforaminal steriod injection (11/20/2014), Transforaminal epidural steroid injection (05/22/2014), Epidural injection of lumbar spine using fluoroscopic guidance (01/28/2014), Epidural injection of lumbar spine using fluoroscopic guidance (11/19/2013), Epidural injection of lumbar spine using fluoroscopic guidance (09/24/2013), scraping of the elbow-right (2011), hysterectomy (2008), Tonsillectomy (1964), Bunion, Hysterectomy, Sinus congestion, sinus surgeries, Transforaminal epidural steroid injection. Discharge Vitals Temperature (Axillary) 36.7 ?C Heart Rate (Monitored) 69 Respiratory Rate 18 Blood Pressure 117/66 Weight 128.4 kg What to do next Instructions From Your Doctor Event Name Event Result Discharge Instructions Freetext Brace on at all times. Weight as tolerated. Discharge Activity Expect minimal amount of drainage and/or bleeding, Do not lift more than 5 lbs Discharge Restrictions Do not operate machinery or tools, Do not make important decisions for 24 hours, Do not drink alcoholic beverages for 24 hours Discharge Diet(s) Regular Call Your Doctor For Persistent or heavy bleeding, Temperature above 1 (more content not included)... Normal [facility] HEMATOLOGYOrdered By: SYSTEM SYSTEM on 05-17-2023 Basophils/100 WBC (Bld) 0.6 % Normal 0.0 - 2.0 % [facility] HemeAutoSS Basophils/Leukocyte s Auto (Bld) [Pure # fraction] 0.1 E9/L Normal 0.0 - 0.2 E9/L [facility] HemeAutoSS Eosinophils/100 WBC (Bld) 0.0 % Normal 0.0 - 8.0 % [facility] HemeAutoSS Eosinophils/Leukocy blayne Auto (Bld) [Pure # fraction] 0.0 E9/L Normal 0.0 - 0.5 E9/L [facility] HemeAutoSS Lymphocytes/100 WBC (Bld) 10.7 % Low 14.0 - 50.0 % [facility] Lymphocytes/Leukocy blayne Auto (Bld) [Pure # fraction] 1.0 E9/L Normal 1.0 - 4.0 E9/L [facility] Monocytes/100 WBC (Bld) 4.7 % Normal 4.0 - 14.0 % [facility] Monocytes/Leukocyte s Auto (Bld) [Pure # fraction] 0.4 E9/L Normal 0.2 - 1.0 E9/L [facility] Neutrophils/100 WBC (Bld) 84.0 % High 36.0 - 75.0 % [facility] Neutrophils/Leukocy blayne Auto (Bld) [Pure # fraction] 8.1 E9/L High 2.0 - 7.5 E9/L [facility] HEMATOLOGYOrdered By: Kayli Enriquez on 05-17-2023 Erythrocyte distribution width (RBC) [Ratio] 14.9 % High 10.9 - 14.2 % [facility] Hematocrit (Bld) [Volume fraction] 36.4 % Normal 34.0 - 46.0 % [facility] Comment on above: Result Comment: Resu lts Verified By Repeat Analysis Hemoglobin (Bld) [Mass/Vol] 12.1 g/dL Normal 12.0 - 16.0 gm/dL [facility] Comment on above: Result Comment: Resu lts Verified By Repeat Analysis MCH (RBC) [Entitic mass] 30.9 pg Normal 27.0 - 34.0 pg [facility] MCHC (RBC) [Mass/Vol] 33.2 g/dL Normal 31.4 - 36.0 gm/dL [facility] MCV (RBC) [Entitic vol] 93.1 fL Normal 80.0 - 100.0 fL [facility] Platelet mean volume (Bld) [Entitic vol] 7.8 fL Normal 6.4 - 10.8 fL [facility] Platelets (Bld) [#/Vol] 196.0 E9/L Normal 150.0 - 500.0 E9/L [facility] RBC (Bld) [#/Vol] 3.9 E12/L Low 4.3 - 5.9 E12/L [facility] WBC corrected for nucl RBC Auto (Bld) [#/Vol] 9.6 E9/L Normal 4.0 - 11.0 E9/L [facility] Interdisciplinary Note - Gonzalez e Manageron 05-17-2023 Interdisciplinary Note - Lathe Set Up Operator CRM spoke with patient in room. Patient is alert and oriented and participates in discharge planning. No family in room. Patient white board updated, and CRM contact information provided. Discussed CRM spoke with Dr Beckford who saw patient earlier today and will be up to ortho for discharge. Patient verified PCP, insurance and DME. Patient is from home alone and has 3 sisters that can assist some. Family will transport. Will wait PT/OT. Patient had a knee sx yesterday. Discussed SNF VS H/H and if needs SNF wants TCU if H/H would like FT. Patient voiced concern for doing steps and has 3-4 steps into home. PT will return and try stairs this am. Discussed OBS admit, reviewed COLMENARES form, she denies any questions and signs form . Gave her a copy of signed form. Patient states she was doing outpatient PT at [facility]. Normal [facility] Comment on above: Result Comment: Elec tronically Signed By: Raj JEFFERSON, Shannen\.br\Date and Time Signed: 05/17/23 10:46 EDT Interdisciplinary Note - Jairo n 07-27-2023 Interdisciplinary Note - OT OT [facility] six clicks score 17/24 = SNF. However, pt reports her family (sister's) will assist w/ LE self care d/t inability to reach rle w/ brace applied as instructed. Pt has ETS in place at home and shower chair. Patient may need a tub transfers bench. If pt returns home, recommend OT services to follow. Inpatient OT services to follow daily to progress as able. Normal [facility] IntraOperative Documentson 0 05-17-2023 IntraOperative Documents [id number]#1.00CD:127 Normal [facility] IntraOperative Documents [id number]#1.00CD:127 Normal [facility] Lyteson 05-17-2023 Anion gap [Moles/Vol] 10 mmol/L Normal 6-16 [facility] Comment on above: Performed By: #### 1 8361037, 9040938, 5982581, 7668936, 0964925, 9819122 ####[facility] [address] [place] [address] Chloride [Moles/Vol] 105 mmol/L Normal 101-111 [facility] Comment on above: Performed By: #### 1 7468064, 5286266, 9497868, 2002725, 3284309, 5840269 ####[facility] [address] [place] [address] CO2 [Moles/Vol] 27 mmol/L Normal 21-31 [facility] Comment on above: Performed By: #### 1 6235797, 4622730, 8636764, 2627968, 2922003, 0156399 ####[facility] [address] [place] [address] Potassium [Moles/Vol] 4.7 mmol/L Normal 3.5-5.3 [facility] Comment on above: Performed By: #### 1 2022966, 9992181, 3993629, 1190459, 6149375, 5316501 ####[facility] [address] [place] [address] Sodium [Moles/Vol] 137 mmol/L Normal 135-145 [facility] Comment on above: Performed By: #### 1 1859690, 8119525, 0601094, 5754263, 2940530, 7998892 ####[facility] [address] [place] [address] Main OR Intraoperative Recor don 05-17-2023 Main OR Intraoperative Record Normal [facility] Message from Medicareon 04-22 Message from Medicare [id number]#1.00CD:127 Normal [facility] Operative Reporton Operative Report SURGERY DATE: 05/16/2023 GEL COATER: Chapito Eugene PA-C PREOPERATIVE DIAGNOSIS: 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 She was actually seen a couple weeks ago in the office doing well on her postoperative course and progressing appropriately. Last week she was at a chiropractor office when she came off the table, she twisted her knee and feeling a pop/pull sensation on afternoon. Subsequently was seen Sunday with pain, weakness and x-ray findings of lateral patellar subluxation/disloca tion with findings consistent with a medial retinacular tear. Pros, cons, risks, benefits, reasonable expectations of surgery were reviewed. Immobilization, time healing commitment expectations were discussed. She is aware obesity with a BMI over 40 does compound the perioperative course of healing and commitment time and potential morbidity and mortality. Physician power plant assistant Chapito Eugene was integral in the assistance of the case improving time, flow and efficiency. Antibiotics were provided weight-based per protocol. PROCEDURE: Levi was taken to the Operating Room and placed in the supine position. Anesthesia provided. A well-padded tourniquet was placed on the left upper thigh. The leg was prepped and draped in sterile fashion. A time-out procedure occurred consistent with the consent form, History and Physical, preoperative marked site. Landmarks were identified. Once the time-out was confirmed, leg was exsanguinated. Tourniquet was inflated. Midline incision from prior was opened. Hematoma was moderate in size which was evacuated. Pulse lavage irrigation was utilized throughout the procedure, a total of three liters with 1 gm of vancomycin. After copious irrigation, the patella was inspected which showed no sign of wear or trauma. There was no sign of patellar loosening. The knee was flexed. The femoral, tibial components were intact. The lateral patella was subluxed laterally, reduced easily with extension. After copious irrigation, the soft tissues and medial retinaculum were freed up as well as partial lateral release. The primary repair was performed with #2 Quill suture followed by #2 Ethibond. The knee was flexed with good position and alignment of the patella. Of note, the knee was copiously irrigated as well as Irrisept antibiotic solution. The 4x7 GraftJacket was placed over the medial tear and retinacular area and sutured with a 2-0 Vicryl suture and deemed stable. After copious irrigation, subcutaneous tissues were closed with 2-0 Vicryl suture. The rosie were applied. A 10-inch Mepilex dressing with soft roll wrap was provided. Brace was provided in full extension. The patient was transferred to Recovery Room in stable and satisfactory condition. Ashley Guzman Dictated: 05/16/2023 [id number] Transcribed: 05/17/2023 [facility] Comment on above: Result Comment: Elec tronically Signed By: Melva Grimaldo DO\.br\Date and Time Signed: 05/17/23 07:33 EDT Preoperative Documentson Preoperative Documents [id number]#1.00CD:127 [facility] Progress Note-Physicianon Progress Note-Physician Patient: LEVI SOFIA Age: 63 years Sex: Female : 1960 Associated Diagnoses: None Author: Melva Grimaldo DO Chief Complaint Total Knee Arthroplasty POD #1 retinacular repair with allograft Review of Systems Constitutional: No fever, No chills. Respiratory: No shortness of breath. Cardiovascular: No chest pain. Psychiatric: Negative. Health Status Allergies: Allergic Reactions (All) Severity Not Documented Augmentin- Hives. Avelox- Hives. Parafon Forte DSC- Hives. Penicillin- Hives. Penicillin V Potassium- Unknown. Canceled/Inactive Reactions (All) Severity Not Documented Antibiotic- No reactions were documented. Problem list: All Problems Charcot's joint / SNOMED CT 330868312 / Confirmed left At risk for falls / SNOMED CT 018625829 / Possible Problem added when Risk for Falls Careplan was initiated. Gout / SNOMED CT 685991444 / Confirmed Left lumbar radiculopathy / SNOMED CT 975606698 / Confirmed GERD (gastroesophageal reflux disease) / SNOMED CT 964344640 / Confirmed Fasting hyperglycemia / SNOMED CT 666372810 / Confirmed Benign hypertension / SNOMED CT 45050930 / Confirmed Migraine headache / SNOMED CT 91445311 / Confirmed BMI 40.0-44.9, adult / SNOMED CT 0609681305 / Confirmed Morbid obesity / SNOMED CT 878847628 / Confirmed Asthma, moderate persistent / SNOMED CT 8462746116 / Confirmed Combined hyperlipidemia / SNOMED CT 892235082 / Confirmed Hypothyroidism, congenital / SNOMED CT 137619389 / Confirmed Well adult exam / SNOMED CT 069880560 / Confirmed Allergic rhinitis due to pollen / SNOMED CT 970802899 / Confirmed Detrusor instability of bladder / SNOMED CT 2789972940 / Confirmed Screening mammogram, encounter for / SNOMED CT 049876347 / Confirmed Personal history of colonic polyps / SNOMED CT 4653214290 / Confirmed Depression, major, recurrent, in partial remission / SNOMED CT 84597197 / Confirmed Rotator cuff tear arthropathy of right shoulder / SNOMED CT 9754917041 / Confirmed Encounter for well adult exam with abnormal findings / SNOMED CT 051268218 / Confirmed Osteoarthritis of left knee / SNOMED CT 6285206409 / Confirmed Physical Examination Gastrointestinal: Soft, Non-tender. Musculoskeletal Mobility/ gait: requires assistance. Lower extremity exam: Swelling as expected. Supple calves.. AROM-PROM limited due to dressing and pain.. Neurologic: Alert, Oriented, Normal sensory, Normal motor function. Psychiatric: Appropriate mood & affect. Review / Management Radiology results: Xray in Recovery Room shows stable position and alignment.. Impression and Plan Diagnosis POD #1 Right retinacular repair with subacute TKA, obesity BMI>40, HTN. Orders Continue mechanical and pharmacologic DVT prophylaxis. Analgesics. PT and OT services, WBAT with brace on in full extension. Discharge planning with TCU eval. vs home pending PT today. Scripts written and sent for Percocet ASA 325 daily 4 weeks Colace Bactrim BID. .. Normal [facility] Comment on above: Result Comment: Elec tronically Signed By: Melva Grimaldo DO\.br\Date and Time Signed: 05/17/23 07:39 EDT XR Knee 1 or 2 Views Lefton 05-17-2023 XR Knee 1 or 2 Views Left Exam Date/Time: 05/16/2023 16:53 EDT Reason for Exam: Post-op evaluation;Other (please specify) Report IMPRESSION: LEFT TOTAL KNEE REPLACEMENT. CLINICAL INFORMATION: Postop. COMMENT: 2 views. There is a left total knee prosthesis, in good position and alignment. There is gas in the soft tissues from the surgery. There are metallic surgical rosie along the anterior skin incision. Ordering Provider: Melva Grimaldo FINAL REPORT Dictated: 05/17/2023 10:12 am Christian Wong M.D. Signed (Electronic Signature): 05/17/2023 10:12 am Signed by: Christian Wong M.D. Transcribed by: HENRIETTA Technologist: PRIMO Technical Comments Radiation Dose: Ka,r in mGy = na DAP = na Normal [facility] eGFRon 05-17-2023 GFR/1.73 sq M.predicted among non-blacks MDRD (S/P/Bld) [Vol rate/Area] 56 mL/min/1.73 m2 Low >=59 [facility] Comment on above: Order Comment: Order added by Discern Expert. Result Comment: Door Liner alyce kidney disease could be indicated at eGFR's of less than 60 mL/min/1.73m2. Kidney failure is indicated at less than 15 mL/min/1.73m2. Performed By: #### 1 1340518, 4775111, 5418074, 8169957, 7963156, 7411488 ####[facility] [address] [place] [address] BUNon 05-16-2023 Urea nitrogen [Mass/Vol] 31 mg/dL High 5-21 [facility] Comment on above: Performed By: #### 2 560112, 9151818, 8024760, 8698808, 3703579, 32224083 ####[facility] [address] [place] [address] CBC w/Indiceson 05-16-2023 Erythrocyte distribution width (RBC) [Ratio] 14.9 % High 10.9-14.2 [facility] Comment on above: Performed By: #### 2 832825, 3579257, 8954316, 7208613, 6074232, 96934278 #### [facility] [address] [place] [address] Hematocrit (Bld) [Volume fraction] 42.0 % Normal 34.0-46.0 [facility] Comment on above: Performed By: #### 2 276491, 4577142, 3632526, 7595569, 1570208, 52571161 #### [facility] [address] [place] [address] Hemoglobin (Bld) [Mass/Vol] 14.2 g/dL Normal 12.0-16.0 [facility] Comment on above: Performed By: #### 2 804992, 7176450, 6817577, 9550373, 0894956, 18883477 #### [facility] [address] [place] [address] MCH (RBC) [Entitic mass] 31.5 pg Normal 27.0-34.0 [facility] Comment on above: Performed By: #### 2 186981, 4308485, 1923610, 4168413, 0011559, 15146518 #### [facility] [address] [place] [address] MCHC (RBC) [Mass/Vol] 33.9 g/dL Normal 31.4-36.0 [facility] Comment on above: Performed By: #### 2 279027, 5864373, 3335045, 8813647, 5343504, 74532904 #### [facility] [address] [place] [address] MCV (RBC) [Entitic vol] 92.8 fL Normal 80.0-100.0 [facility] Comment on above: Performed By: #### 2 358479, 9064051, 1646863, 6123220, 9314730, 04477971 #### [facility] [address] [place] [address] Platelet mean volume (Bld) [Entitic vol] 8.6 fL Normal 6.4-10.8 [facility] Comment on above: Performed By: #### 2 949564, 2025973, 4576564, 3757998, 3653329, 02528077 #### [facility] [address] [place] [address] Platelets (Bld) [#/Vol] 228.0 E9/L Normal 150.0-500.0 [facility] Comment on above: Performed By: #### 2 009038, 7435662, 9795168, 2837572, 1971449, 07082077 #### [facility] [address] [place] [address] RBC (Bld) [#/Vol] 4.5 E12/L Normal 4.3-5.9 [facility] Comment on above: Performed By: #### 2 471076, 0172482, 3574877, 6198473, 0773735, 56432037 #### [facility] [address] [place] [address] WBC corrected for nucl RBC Auto (Bld) [#/Vol] 8.4 E9/L Normal 4.0-11.0 [facility] Comment on above: Performed By: #### 2 613667, 2463482, 1375238, 5742211, 7075198, 02911401 #### [facility] [address] [place] [address] CHEMISTRYOrdered By: SYSTEM SYSTEM on 05-16-2023 Anion gap [Moles/Vol] 13 mmol/L Normal 6 - 16 mEq/L [facility] Chloride [Moles/Vol] 103 mmol/L Normal 101 - 111 mmol/L [facility] CO2 [Moles/Vol] 24 mmol/L Normal 21 - 31 mmol/L [facility] Creatinine [Mass/Vol] 1.2 mg/dL Normal 0.5 - 1.3 mg/dL [facility] Remisol GFR/1.73 sq M.predicted among non-blacks MDRD (S/P/Bld) [Vol rate/Area] 51 mL/min/1.73 m2 Low >=59mL/min/1.73 m2 [facility] Chem S Glucose post fast [Mass/Vol] 132 mg/dL High 55 - 99 mg/dL [facility] Remisol Potassium [Moles/Vol] 3.8 mmol/L Normal 3.5 - 5.3 mmol/L [facility] Remisol Sodium [Moles/Vol] 136 mmol/L Normal 135 - 145 mmol/L [facility] Remisol Urea nitrogen [Mass/Vol] 31 mg/dL High 5 - 21 mg/dL [facility] Remisol Consent for Procedure/Surger yon 05-16-2023 Consent for Procedure/Surgery [id number]#1.00CD:127 Normal [facility] Consent for Treatmenton 04-22 Consent for Treatment [id number]#1.00CD:127 Normal [facility] Creatinineon 05-16-2023 Creatinine [Mass/Vol] 1.2 mg/dL Normal 0.5-1.3 [facility] Comment on above: Performed By: #### 2 365811, 2970872, 8583353, 8418121, 3299903, 28365832 ####[facility] [address] [place] [address] Glu Fastingon 05-16-2023 Glucose [Mass/Vol] 132 mg/dL High 55-99 [facility] Comment on above: Performed By: #### 2 969304, 2077900, 6473206, 3556458, 6503066, 05408682 #### [facility] [address] [place] [address] H&P Updateon 05-16-2023 H&P Update [id number]#1.00CD:127 Normal [facility] HEMATOLOGYOrdered By: Millicent Andrade on 05-16-2023 Erythrocyte distribution width (RBC) [Ratio] 14.9 % High 10.9 - 14.2 % [facility] Hematocrit (Bld) [Volume fraction] 42.0 % Normal 34.0 - 46.0 % [facility] Hemoglobin (Bld) [Mass/Vol] 14.2 g/dL Normal 12.0 - 16.0 gm/dL [facility] MCH (RBC) [Entitic mass] 31.5 pg Normal 27.0 - 34.0 pg [facility] MCHC (RBC) [Mass/Vol] 33.9 g/dL Normal 31.4 - 36.0 gm/dL [facility] MCV (RBC) [Entitic vol] 92.8 fL Normal 80.0 - 100.0 fL [facility] Platelet mean volume (Bld) [Entitic vol] 8.6 fL Normal 6.4 - 10.8 fL [facility] Platelets (Bld) [#/Vol] 228.0 E9/L Normal 150.0 - 500.0 E9/L [facility] RBC (Bld) [#/Vol] 4.5 E12/L Normal 4.3 - 5.9 E12/L [facility] WBC corrected for nucl RBC Auto (Bld) [#/Vol] 8.4 E9/L Normal 4.0 - 11.0 E9/L [facility] Inpatient Patient Summaryon 05-16-2023 Inpatient Patient Summary [address] [id number] [facility] Clinical Discharge Instructions PERSON INFORMATION Name: LEVI SOFIA [facility]#:[id number] PHYSICIANS Admitting Physician: Melva Grimaldo DO Attending Physician: Melva Grimaldo DO PCP: Mara BEVERLY MD Diagnosis: Extensor mechanism malalignment of knee; History of total right knee replacement Comment: PATIENT EDUCATION INFORMATION Instructions: Medication Leaflets: Follow up: With: Address: When: Melva Grimaldo [address] [place] [address] [facility] (1) Comments: Keep scheduled appointment MEDICATION LIST Medications to Continue with No Changes Other Medications acetaminophen-chlor zoxazone (Extra Strength Tylenol Aches and Strains) See Instructions. 1 tab q6 hrs. acetaminophen-oxyco done (Percocet 5 mg-325 mg oral tablet) Take one to two every 4 hours as needed for pain.. Refills: 0. albuterol (albuterol 0.083% Inh Mamie 3 mL) 0.083% - 3mL dosing units Inhalation every 4 hours as needed as needed for wheezing. Refills: 0. albuterol (ProAir HFA 90 mcg/inh inhalation aerosol) 2 Puffs Inhalation every 6 hours as needed for wheezing. Refills: 1. aspirin (aspirin 81 mg Chew Tab) 1 Tablets Chewed at bedtime. atorvastatin (atorvastatin 20 mg Tab) 1 Tablets By Mouth once a day (at bedtime). Refills: 1. budesonide-formoter ol (Symbicort 160/4.5 inhalation aerosol with adapter) 2 Puffs Inhalation 2 times a day. Refills: 1. citalopram (citalopram 20 mg Tab) 1 Tablets By Mouth every day. Refills: 1. diclofenac (diclofenac sodium 75 mg Oral EC Tab) 1 Tablets By Mouth 2 times a day. Refills: 3. docusate (Colace 100 mg Cap) 1 Capsules By Mouth 2 times a day. Refills: 0. duloxetine (duloxetine 30 mg oral delayed release capsule) 1 Capsules By Mouth every day. Refills: 1. fexofenadine (Carla 24 Hour Allergy oral tablet) 1 Tablets By Mouth every day. fluconazole (Diflucan 150 mg Tab) Take one po q 3 day as needed for post op yeast. Refills: 0. hydrochlorothiazide (hydrochlorothiazid e 12.5 mg Cap) 1 Capsules By Mouth every day for 90 Days. Refills: 3. levothyroxine (levothyroxine 137 mcg (0.137 mg) Tab) 1 Tablets By Mouth every day. Refills: 1. losartan (losartan 50 mg Tab) 1 Tablets By Mouth 2 times a day. Refills: 1. Misc Prescription (Nebulizer machine tubing/ kit) use with nebulizer medication dx. J45.41. Refills: 0. Misc Prescription (Nebulizer Machine) use with medication for inhalaiton dx.J45.41. Refills: 0. montelukast (montelukast 10 mg Tab) 1 Tablets By Mouth once a day (in the evening). Refills: 1. multivitamin (Daily Multiple Vitamins) 1 Tablets By Mouth every day. mupirocin topical (mupirocin Top 2% Crm) 1 Application Topical 3 times a day. Refills: 0. omeprazole (omeprazole 20 mg Cap-DR) 1 Capsules By Mouth every day. Refills: 1. oxybutynin (oxybutynin 15 mg ER Tab) 1 Tablets By Mouth every day. Refills: 1. propranolol (propranolol 80 mg Cap-ER) 1 Capsules By Mouth 2 times a day. Refills: 1. sumatriptan (SUMAtriptan 100 mg Tab) 1 Tablets By Mouth As Directed as needed Migraine headache. Take at onset of migraine. May repeat dose in 1 hour if no relief. Refills: 0. triamcinolone nasal (Nasacort Allergy 24HR nasal spray) 2 Sprays Nasal Inhalation every day. Refills: 1. Comment: Normal [facility] Lyteson 05-16-2023 Anion gap [Moles/Vol] 13 mmol/L Normal 6-16 [facility] Comment on above: Performed By: #### 2 664523, 4808162, 9239870, 5146641, 7805607, 33479530 #### [facility] [address] [place] [address] Chloride [Moles/Vol] 103 mmol/L Normal 101-111 [facility] Comment on above: Performed By: #### 2 112143, 0069509, 1562038, 2608097, 7664671, 90859582 #### [facility] [address] [place] [address] CO2 [Moles/Vol] 24 mmol/L Normal 21-31 [facility] Comment on above: Performed By: #### 2 469112, 9811386, 1626193, 8194485, 7166657, 53363272 #### [facility] [address] [place] [address] Potassium [Moles/Vol] 3.8 mmol/L Normal 3.5-5.3 [facility] Comment on above: Performed By: #### 2 749099, 7318538, 0151777, 0306551, 2586895, 56738762 #### [facility] [address] [place] [address] Sodium [Moles/Vol] 136 mmol/L Normal 135-145 [facility] Comment on above: Performed By: #### 2 271704, 7109712, 9648807, 8955423, 7337632, 00015856 #### [facility] [address] [place] [address] Main OR PACU I Recordon 04-22 Main OR PACU I Record PACU Phase I Document Type FT Summary Primary Physician: Melva Grimaldo DO Finalized Date/Time: 05/16/23 17:29:51 Pt. Name: LEVI SOFIA/Sex: 1960 Female Med Rec #: [id number] Physician: Melva Grimaldo DO Financial #: [id number] Pt. Type: A [facility]Bed: [facility] Admit/Disch: 05/16/23 11:52:37 - Institution: Case Times PACU I FT Pre-Care Text: Identifies barriers to communication and implements measures to provide psychological support Develops individualized plan of care, and ensures continuity of care Maintains patient's dignity and privacy, and maintains patient confidentiality Identifies and reports philosophical, cultural, and spiritual beliefs and values Identifies individual values and wishes concerning care Implements aseptic technique, and administers prescribed antibiotic therapy and immunizing agents as ordered Evaluates postoperative tissue perfusion Implements thermoregulation measures, and monitors body temperature Evaluates postoperative respiratory status Evaluates postoperative cardiac status Evaluates postoperative neurological status Assesses pain control, collaborated in initiating patient-controlled analgesia and implements alternative methods of pain control Verifies allergies, administers prescribed medications and solutions, evaluates response to medications Entry 1 In PACU I 05/16/23 16:27:00 Discharge from PACU 05/16/23 16:57:00 I Outcomes Met? Yes Last Modified By: Kirti Duenas RN 05/16/23 17:27:57 Post-Care Text: The patient demonstrates knowledge of the expected response to the operative or invasive procedure The patient's care is consistent with the individualized perioperative plan of care The patient's right to privacy is maintained The patient's value system, lifestyle, ethnicity, and culture are considered, respected, and incorporated into the perioperative plan of care The patient participates in decisions affecting his or her perioperative plan of care The patient is free from signs and symptoms of infection The patient has wound/tissue perfusion consistent with or improved from baseline levels established preoperatively The patient is at or returning to normothermia at the conclusion of the immediate postoperative period The patient's respiratory function is consistent with or improved from baseline levels established preoperatively The patient's cardiovascular status is consistent with or improved from baseline levels established preoperatively The patient's cardiovascular status is consistent with or improved from baseline levels established preoperatively The patient demonstrates and/or reports adequate pain control throughout the perioperative period The patient received appropriate medication(s), safely administered during the perioperative period Acuity Level PACU I FT Entry 1 Start Time 05/16/23 16:27:00 Stop Time 05/16/23 16:57:00 Acuity Level Acuity Level I Last Modified By: Kirti Duenas RN 05/16/23 17:28:09 Finalized By: Kirti Duenas RN Document Signatures Signed By: Kirti Duenas RN 05/16/23 17:29 Kirti Duenas RN 05/16/23 17:28 Kirti Duenas RN 05/16/23 17:28 Kirti Duenas RN 05/16/23 17:29 [facility] Main OR Preoperative Recordo n 05-16-2023 Main OR Preoperative Record PreOp Document Type FT Summary Primary Physician: Melva Grimaldo DO Finalized Date/Time: 05/16/23 15:30:10 Pt. Name: LEVI SOFIA./Sex: 1960 Female Med Rec #: [id number] Physician: Melva Grimaldo DO Financial #: [id number] Pt. Type: A Room/Bed: Admit/Disch: 05/16/23 11:52:37 - Institution: Case Times PreOp FT Pre-Care Text: Verifies consent for planned procedure, identifies individual values and wishes concerning care, includes family members in perioperative teaching Entry 1 Patient Times. In Pre Surgery 05/16/23 12:00:00 Out Pre Surgery 05/16/23 15:00:00 Outcomes Met? Yes Last Modified By: Bre Garcia 05/16/23 15:30:09 Post-Care Text: The patient participates in decisions affecting his or her perioperative plan of care Finalized By: Bre Garcia Document Signatures Signed By: Bre Garcia 05/16/23 15:30 Normal [facility] Monitor Recordon 05-16-2023 Monitor Record [id number]:127 Normal [facility] Monitor Record [id number]:127 Normal [facility] Outpatient Surgery Discharge Instructionon 05-16-2023 Outpatient Surgery Discharge Instruction [place] [id number] Patient Discharge Instructions PERSON INFORMATION Name: LEVI SOFIA Date of : 1960 Current Date: 05/16/2023 15:20:42 PHYSICIANS Admitting Physician: Melva Grimaldo DO Discharge Diagnosis: Extensor mechanism malalignment of knee; History of total right knee replacement LEVI SOFIA has been given the following list of follow-up instructions, prescriptions, and patient education materials: PATIENT FOLLOW-UP INFORMATION Diet: Regular Discharge Activity: Expect minimal amount of drainage and/or bleeding, Do not lift more than 5 lbs Discharge Restrictions: Do not operate machinery or tools, Do not make important decisions for 24 hours, Do not drink alcoholic beverages for 24 hours Call Your Doctor For: Persistent or heavy bleeding, Temperature above 101.5 degrees, Redness, swelling, or pus at operative site, Severe pain at the operative site, Persistent vomiting Wound Care Instructions: Remove dressing as instructed Remove Your Dressing In 10 Days Additional Instructions: Brace on at all times. Weight as tolerated. IF UNABLE TO CONTACT YOUR PHYSICIAN AND YOU FEEL IT IS AN EMERGENCY, GO TO THE NEAREST EMERGENCY ROOM OR CALL 911 [facility] Rose MARCIA L, have received the attached patient education materials/instructi ons and have verbalized understanding: May we do a follow up call? Yes No I was present when discharge instructions were given Patient Signature Date Clinican/Nurse Signature Date Follow up: With: Address: When: Melva Grimaldo [address] [place], [place] [id number] [facility] (1) Comments: Keep scheduled appointment Pharmacy Information: [facility] You may receive a survey from [employer] asking you to rate your care experience. Your feedback is important and will help us understand what we do well and how we can improve the quality of care we provide to you, your loved ones and our community. It?s an honor to serve you. Thank you for choosing [facility] HERE ARE THE MEDICATION CHANGES THAT OCCURRED DURING YOUR HOSPITAL STAY Medications to Continue with No Changes Other Medications acetaminophen-chlor zoxazone (Extra Strength Tylenol Aches and Strains) See Instructions. 1 tab q6 hrs. acetaminophen-oxyco done (Percocet 5 mg-325 mg oral tablet) Take one to two every 4 hours as needed for pain.. Refills: 0. albuterol (albuterol 0.083% Inh Mamie 3 mL) 0.083% - 3mL dosing units Inhalation every 4 hours as needed as needed for wheezing. Refills: 0. albuterol (ProAir HFA 90 mcg/inh inhalation aerosol) 2 Puffs Inhalation every 6 hours as needed for wheezing. Refills: 1. aspirin (aspirin 81 mg Chew Tab) 1 Tablets Chewed at bedtime. atorvastatin (atorvastatin 20 mg Tab) 1 Tablets By Mouth once a day (at bedtime). Refills: 1. budesonide-formoter ol (Symbicort 160/4.5 inhalation aerosol with adapter) 2 Puffs Inhalation 2 times a day. Refills: 1. citalopram (citalopram 20 mg Tab) 1 Tablets By Mouth every day. Refills: 1. diclofenac (diclofenac sodium 75 mg Oral EC Tab) 1 Tablets By Mouth 2 times a day. Refills: 3. docusate (Colace 100 mg Cap) 1 Capsules By Mouth 2 times a day. Refills: 0. duloxetine (duloxetine 30 mg oral delayed release capsule) 1 Capsules By Mouth every day. Refills: 1. fexofenadine (Carla 24 Hour Allergy oral tablet) 1 Tablets By Mouth every day. fluconazole (Diflucan 150 mg Tab) Take one po q 3 day as needed for post op yeast. Refills: 0. hydrochlorothiazide (hydrochlorothiazid e 12.5 mg Cap) 1 Capsules By Mouth every day for 90 Days. Refills: 3. levothyroxine (levothyroxine 137 mcg (0.137 mg) Tab) 1 Tablets By Mouth every day. Refills: 1. losartan (losartan 50 mg Tab) 1 Tablets By Mouth 2 times a day. Refills: 1. Misc Prescription (Nebulizer machine tubing/ kit) use with nebulizer medication dx. J45.41. Refills: 0. Misc Prescription (Nebulizer Machine) use with medication for inhalaiton dx.J45.41. Refills: 0. montelukast (montelukast 10 mg Tab) 1 Tablets By Mouth once a day (in the evening). Refills: 1. multivitamin (Daily Multiple Vitamins) 1 Tablets By Mouth every day. mupirocin topical (mupirocin Top 2% Crm) 1 Application Topical 3 times a day. Refills: 0. omeprazole (omeprazole 20 mg Cap-DR) 1 Capsules By Mouth every day. Refills: 1. oxybutynin (oxybutynin 15 mg ER Tab) 1 Tablets By Mouth every day. Refills: 1. propranolol (propranolol 80 mg Cap-ER) 1 Capsules By Mouth 2 times a day. Refills: 1. sumatriptan (SUMAtriptan 100 mg Tab) 1 Tablets By Mouth As Directed as needed Mi (more content not included)... Normal [facility] Patient Education - Texton 0 05-16-2023 Patient Education - Text Normal [facility] Progress Note-Physicianon Progress Note-Physician Patient: LEVI SOFIA Age: 63 years Sex: Female : 1960 Associated Diagnoses: None Author: Avelino De La Vega Jr., DO Postoperative Information Postoperative disposition: Postoperative disposition: Home. Optimetrix number: Optimetrix number [id number]. Anesthetic utilized: General. Physical Examination Vital Signs 05/16/2023 17:00 EDT Respiratory Rate 16 br/min Hourly Rounding Yes Promise to Return Yes 05/16/2023 16:52 EDT Temperature Temporal Artery 36.3 DegC Heart Rate Monitored 61 bpm Respiratory Rate Monitored 12 br/min Systolic Blood Pressure 163 mmHg HI Diastolic Blood Pressure 79 mmHg SpO2 99 % 05/16/2023 16:40 EDT Heart Rate Monitored 65 bpm Respiratory Rate Monitored 16 br/min Systolic Blood Pressure 167 mmHg HI Diastolic Blood Pressure 79 mmHg SpO2 100 % 05/16/2023 16:35 EDT Heart Rate Monitored 68 bpm Respiratory Rate Monitored 16 br/min Systolic Blood Pressure 156 mmHg HI Diastolic Blood Pressure 73 mmHg SpO2 100 % 05/16/2023 16:30 EDT Heart Rate Monitored 72 bpm Respiratory Rate Monitored 18 br/min Systolic Blood Pressure 155 mmHg HI Diastolic Blood Pressure 75 mmHg SpO2 93 % 05/16/2023 16:27 EDT Temperature Temporal Artery 36.3 DegC Heart Rate Monitored 72 bpm Respiratory Rate Monitored 18 br/min Systolic Blood Pressure 156 mmHg HI Diastolic Blood Pressure 94 mmHg HI SpO2 94 % Pain Assessment: 05/16/2023 16:52 EDT Pain Symptoms Self Report Yes, able to self report Primary Pain Location Knee Primary Pain Laterality Left Patient Preferred Pain Tool Numeric rating Numeric Pain Scale 5 = Moderate pain Numeric Pain Score 5 05/16/2023 16:27 EDT Pain Symptoms Self Report No, able to self report . General: Awake, Alert, Appropriate. Respiratory: Adequate air exchange, Non-labored. Cardiovascular: Stable, Normal peripheral perfusion. Neurological: Neurologic exam at baseline. No changes.. Assessment Anesthetic outcome No anesthetic complications noted. No nausea/vomiting. Review / Management Condition: Stable. Plan Transfer/Discharge: Transfer/Discharge Discharge when meets criteria ( From PACU to Ambulatory Surgery Unit, and To home ). Normal [facility] Comment on above: Result Comment: Elec tronically Signed By: Ceferino Mina DO, Avelino Altman.br\Date and Time Signed: 05/16/23 23:12 EDT UA With Cult Reflexon 2022 Bilirubin Ql (U) Negative Normal Negative [facility] Comment on above: Performed By: #### 1 [id number] ####[facility] [address] [place] [address] Clarity (U) CLEAR Normal Clear [facility] Comment on above: Performed By: #### 1 [id number] ####[facility] [address] [place] [address] Color (U) YELLOW Normal Yellow [facility] Comment on above: Performed By: #### 1 [id number] ####[place] [address] [place] [address] Epithelial cells.squamous LM.HPF (Urine sed) [#/Area] 0-2 Normal 0-2 [facility] Comment on above: Performed By: #### 1 [id number] ####[facility] [address] [place] [address] Glucose Test strip (U) [Mass/Vol] Negative Normal Negative [facility] Comment on above: Performed By: #### 1 [id number] ####[facility] [address] [place] [address] Hemoglobin Ql (U) Negative Normal Negative [facility] Comment on above: Performed By: #### 1 [id number] ####[facility] [address] [place] [address] Ketones (U) [Mass/Vol] TRACE Abnormal Negative [facility] Comment on above: Performed By: #### 1 [id number] ####[facility] [address] [place] [address] [place].plasma/Lith ium.RBC (Bld) [Mass ratio] 0-3 Normal 0-3 [facility] Comment on above: Performed By: #### 1 [id number] ####[address] [address] Nitrite Ql (U) Negative Normal Negative [facility] Comment on above: Performed By: #### 1 [id number] ####[address] [address] pH (U) 5.5 [pH] Invalid Interpretation Code 5.0-9.0 [facility] Comment on above: Performed By: #### 1 [id number] ####[address] [address] Protein (U) [Mass/Vol] Negative Normal Negative [facility] Comment on above: Performed By: #### 1 [id number] ####[place] [address] [place] [address] Specific gravity (U) [Rel density] 1.025 Invalid Interpretation Code 1.005-1.030 [facility] Comment on above: Performed By: #### 1 [id number] ####[address] [address] Type of Urine collection method [place] Normal [facility] Comment on above: Performed By: #### 1 [id number] ####[address] [place] [address] Urobilinogen Qn (U) 0.2 {Rupert'U}/dL Normal 0.0-1.0 [facility] Comment on above: Performed By: #### 1 [id number] ####[facility] [address] [place] [address] WBC Auto Ql (U) Negative Normal Negative [facility] Comment on above: Performed By: #### 1 [id number] ####[facility] [address] [place] [address] WBC LM.HPF (Urine sed) [#/Area] 0-5 Normal 0-5 [facility] Comment on above: Performed By: #### 1 [id number] ####[facility] [address] [place] [address] URINALYSISOrdered By: Gomez alejandro on 05-16-2023 Bilirubin Ql (U) Negative (05/16/23 3:41 PM) Normal Negative [facility] UA Auto SS Clarity (U) Clear (05/16/23 3:41 PM) Normal Clear [facility] UA Auto SS Color (U) Yellow (05/16/23 3:41 PM) Normal Yellow [facility] UA Auto SS Epithelial cells.squamous LM.HPF (Urine sed) [#/Area] 0-2 /HPF Normal 0-2/HPF [facility] UA Auto SS Glucose Test strip (U) [Mass/Vol] Negative (05/16/23 3:41 PM) Normal Negative [facility] UA Auto SS Hemoglobin Ql (U) Negative (05/16/23 3:41 PM) Normal Negative [facility] UA Auto SS Ketones (U) [Mass/Vol] Trace *ABN* (05/16/23 3:41 PM) Invalid Interpretation Code Negative [facility] UA Auto SS [place].plasma/Lith ium.RBC (Bld) [Mass ratio] 0-3 /HPF Normal 0-3/HPF [facility] UA Auto SS Nitrite Ql (U) Negative (05/16/23 3:41 PM) Normal Negative [facility] UA Auto SS pH (U) 5.5 *NA* (05/16/23 3:41 PM) Invalid Interpretation Code 5.0 - 9.0 [facility] UA Auto SS Protein (U) [Mass/Vol] Negative (05/16/23 3:41 PM) Normal Negative [facility] UA Auto SS Specific gravity (U) [Rel density] 1.025 *NA* (05/16/23 3:41 PM) Invalid Interpretation Code 1.005 - 1.030 FT UA Auto SS UA Spec Desc [place] (05/16/23 3:41 PM) Normal FT UA Auto SS Urobilinogen Qn (U) 0.4851683 {Rupert'U}/dL Normal 0.0 - 1.0 EU/dL FT UA Auto SS WBC Auto Ql (U) Negative (05/16/23 3:41 PM) Normal Negative [facility] UA Auto SS WBC LM.HPF (Urine sed) [#/Area] 0-5 /HPF Normal 0-5/HPF [facility] UA Auto SS eGFRon 05-16-2023 GFR/1.73 sq M.predicted among non-blacks MDRD (S/P/Bld) [Vol rate/Area] 51 mL/min/1.73 m2 Low >=59 [facility] Comment on above: Order Comment: Order added by Discern Expert. Result Comment: Door Liner alyce kidney disease could be indicated at eGFR's of less than 60 mL/min/1.73m2. Kidney failure is indicated at less than 15 mL/min/1.73m2. Performed By: #### 2 [id number], [id number], [id number], [id number], [id number], [id number] ####[facility] [place] [address] Consultation Noteon 05-14-20 Consultation Note [id number] 30#1.00CD:127 Normal [facility] RAD - MISCon 05-14-2023 RAD - MISC [id number] 66#1.00CD:127 Normal [facility] CHEMISTRYOrdered By: SYSTEM SYSTEM on 03-26-2023 ALT No additional P-5'-P [Catalytic activity/Vol] 38 [iU]/d Normal 6 - 46 Int._Unit/L [facility] Remisol AST [Catalytic activity/Vol] 29 [iU]/d Normal 5 - 43 Int._Unit/L [facility] Remisol Cholesterol [Mass/Vol] 177 mg/dL Normal 120 - 200 mg/dL [facility] Remisol Cholesterol in HDL [Mass/Vol] 47 mg/dL Invalid Interpretation Code [facility] Remisol Cholesterol in LDL [Mass/Vol] 82 mg/dL Normal <=129mg/dL [facility] Remisol Cholesterol in VLDL [Mass/Vol] 44 mg/dL High 7 - 40 mg/dL [facility] Remisol Triglyceride [Mass/Vol] 219 mg/dL High <=149mg/dL [facility] Remisol TSH Qn 3.19 m[IU]/L Normal 0.34 - 5.60 mcIU/mL FTM C Remisol XR FOOT KENJI MIN 3 VIEWSon XR FOOT KENJI MIN 3 VIEWS EXAMINATION: XR FOOT KENJI MIN 3 VIEWS HISTORY: Pain COMPARISON: XR foot left 09/08/2021 XR foot right 12/23/2020 FINDINGS: RIGHT FINDINGS: BONES: Prior osteotomy and repair of distal first metatarsal with 2 small screws remaining. Flattening of the plantar arch. Moderate degenerative changes and heterotopic bone formation at the talonavicular joint. SOFT TISSUES: No visible soft tissue swelling. OTHER: Negative. LEFT FINDINGS: BONES: Collapse of the midfoot with fusion of the talocalcaneal joint via 2 lag screws and single judith traversing the first metatarsal, medial cuneiform, navicular bone, terminating within the talus. Marked degenerative change of the midfoot. Lucency within distal tibia likely from prior bone harvesting. SOFT TISSUES: Soft tissue swelling surrounding the foot. OTHER: Negative. IMPRESSION: RIGHT CONCLUSION: Pes planus, midfoot degenerative changes, and stable remote first metatarsal osteotomy and repair. No appreciable change. LEFT CONCLUSION: Stable surgical changes and degenerative changes without appreciable hardware failure or change in alignment. Electronically authenticated by: JODI PAPPAS Date: 2022-08-02 17:14 Normal [facility] CHEMISTRYOrdered By: SYSTEM SYSTEM on 07-20-2022 Anion gap [Moles/Vol] 11 mmol/L Normal 6 - 16 mEq/L [facility] Remisol Calcium [Mass/Vol] 9.9 mg/dL Normal 8.9 - 11.1 mg/dL [facility] Remisol Chloride [Moles/Vol] 104 mmol/L Normal 101 - 111 mmol/L FT Remisol CO2 [Moles/Vol] 28 mmol/L Normal 21 - 31 mmol/L FT Remisol Creatinine [Mass/Vol] 0.9 mg/dL Normal 0.5 - 1.3 mg/dL FT Remisol GFR/1.73 sq M.predicted among blacks MDRD (S/P/Bld) [Vol rate/Area] mL/min/1.73 m2 Normal >=59mL/min/1.73 m2 FT Chem S GFR/1.73 sq M.predicted among non-blacks MDRD (S/P/Bld) [Vol rate/Area] mL/min/1.73 m2 Normal >=59mL/min/1.73 m2 [facility] Chem S Glucose [Mass/Vol] 111 mg/dL Normal 55 - 199 mg/dL FT Remisol Potassium [Moles/Vol] 4.3 mmol/L Normal 3.5 - 5.3 mmol/L FT Remisol Sodium [Moles/Vol] 139 mmol/L Normal 135 - 145 mmol/L FT Remisol Urea nitrogen [Mass/Vol] 21 mg/dL Normal 5 - 21 mg/dL FT Remisol Urea nitrogen/Creatinine [Mass ratio] 23 mg/mg High 10 - 20 FT Remisol DIPHTHERIA AND TETANUS ANTIT OXOIDSon 05-05-2022 DIPHTHERIA ANTITOXOID 0.41 IU/mL Normal [facility] Comment on above: Order Comment: FASTI NG: NO Result Comment: Reference Range: 0.10 IU/mL or greater Interpretive Criteria: <0.10 IU/mL Nonprotective Antibody Level > Or = 0.10 IU/mL Protective Antibody Level Antibody levels >= 0.10 IU/mL are considered protective. After a primary series of three properly spaced diphtheria toxoid doses in adults or four doses in infants, a protective level of antitoxin (defined as > or = 0.10 IU of antitoxin/mL) is reached in more than 95% of immunized persons. This test was developed and its analytical performance characteristics have been determined by [facility], [place], [place]. It has not been cleared or approved by the U.S. Food and Drug Administration. This assay has been validated pursuant to the CLIA regulations and is used for clinical purposes. Performed By: #### 5 43, 542, 545, 539 #### [facility] [address], [address] [place], [place] [address] Spring Tacker: Lenin Larson MD #### [id number] #### [facility], [address] [place] [address] Spring Tacker: Sejal Johns MD,PhD,HENRIETTA #### [id number] #### [facility]/[place] [id number] [facility] [place], [place] Spring Tacker: Sherwin Jay M.D.,PhD TETANUS ANTITOXOID 5.47 IU/mL Normal [facility] Comment on above: Order Comment: FASTI NG: NO Result Comment: Reference range (Healthy Immunized): 0.10 IU/mL or greater Antibody levels of >= 0.10 IU/mL are considered protective. However, tetanus can still occur in some individuals with such antibody levels. These results should not be used to determine the necessity to administer antitoxin when clinically indicated. This test was developed and its analytical performance characteristics have been determined by [facility] [place], [place]. It has not been cleared or approved by the U.S. Food and Drug Administration. This assay has been validated pursuant to the CLIA regulations and is used for clinical purposes. Performed By: #### 5 43, 542, 545, 539 #### [facility] [address], [address] [place] [address] Spring Tacker: Lenin Larson MD #### [id number] #### [facility], [address] [place] [address] Spring Tacker: Sejal Johns MD,PhD,HENRIETTA #### [id number] #### [facility] [address] [facility] [place], [place] Spring Tacker: Sherwin Jay M.D.,PhD IMMUNOGLOBULIN Aon 2 IMMUNOGLOBULIN A 239 mg/dL Normal 70-320 [facility] Comment on above: Performed By: #### 5 43, 542, 545, 539 #### [facility] of [place] [address] [place] [address] Spring Tacker: Lenin Larson MD #### [id number] #### [facility], [address] [place] [id number] Spring Tacker: Sejal Johns MD,PhD,HENRIETTA #### [id number] #### [facility]/[address] [place], [place] Spring Tacker: Sherwin Jay M.D.,PhD IMMUNOGLOBULIN Edis 2 IMMUNOGLOBULIN E 77 kU/L Normal [facility] Comment on above: Performed By: #### 5 43, 542, 545, 539 #### [facility] of [address] , [address] [place] [address] Spring Tacker: Lenin Larson MD #### [id number] #### [facility], [address] [place] [id number] Spring Tacker: Sejal Johns MD,PhD,HENRIETTA #### [id number] #### [facility]/[address] [place], [place] Spring Tacker: Sherwin Jay M.D.,PhD IMMUNOGLOBULIN Lenard 2 IMMUNOGLOBULIN G 1305 mg/dL Normal 600-1540 [facility] Comment on above: Performed By: #### 5 43, 542, 545, 539 #### [facility] [address] [place] [address] Spring Tacker: Lenin Larson MD #### [id number] #### [facility], [address] [place] [address] Spring Tacker: Sejal Johns MD,PhD,HENRIETTA #### [id number] #### [facility]/[address] [place], [place] Spring Tacker: Sherwin Jay M.D.,PhD IMMUNOGLOBULIN Mon 2 IMMUNOGLOBULIN M 203 mg/dL Normal 50-300 [facility] Comment on above: Performed By: #### 5 43, 542, 545, 539 #### [facility] [address], [address] [place] [address] Spring Tacker: Lenin Larson MD #### [id number] #### [facility]/[place] [address] Spring Tacker: Sejal Johns MD,PhD,HENRIETTA #### [id number] #### [facility]/[address] [place], [place] Spring Tacker: Sherwin Jay M.D.,PhD STREPTOCOCCUS PNEUMONIAE AB (IGG) (23 SEROTYPES)on 05-05-2022 SEROTYPE 1 (1) 1.1 Normal [facility] Comment on above: Performed By: #### 5 43, 542, 545, 539 #### [facility] [address], [address] [place], [place] [id number] Spring Tacker: Lenin Larson MD #### [id number] #### [facility], [address] [place], [place] Spring Tacker: Sejal Johns MD,PhD,HENRIETTA #### [id number] #### [facility]/[place] [id number] [facility] [place], [place] Spring Tacker: Sherwin Jay M.D.,PhD SEROTYPE 12 (12F) 0.5 Normal [facility] Comment on above: Performed By: #### 5 43, 542, 545, 539 #### [facility] [address], [address] [place] [address] Spring Tacker: Lenin Larson MD #### [id number] #### [facility], [address] [place] [address] Spring Tacker: Sejal Johns MD,PhD,HENRIETTA #### [id number] #### [facility]/[address] [place] Spring Tacker: Sherwin Jay M.D.,PhD SEROTYPE 14 (51) 3.3 Normal [facility] Comment on above: Performed By: #### 5 43, 542, 545, 539 #### [facility] [address], [address] [place] [address] Spring Tacker: Lenin Larson MD #### [id number] #### [facility], [address] [facility] [facility], [place] [id number] Spring Tacker: Sejal Johns MD,PhD,HENRIETTA #### [id number] #### [facility]/[place] [id number] [facility] [address] [place] Spring Tacker: Sherwin Jay M.D.,PhD SEROTYPE 17 17F 5.4 Normal [facility] Comment on above: Performed By: #### 5 43, 542, 545, 539 #### [facility] [address], [address] [place] [address] Spring Tacker: Lenin Larson MD #### [id number] #### [facility], [address] [place] [address] Spring Tacker: Sejal Johns MD,PhD,HENRIETTA #### [id number] #### [facility] Diagnostics/[place] [id number] [facility] [address] [place], [place] Spring Tacker: Sherwin Jay M.D.,PhD SEROTYPE 19 (19F) 4.3 Normal [facility] Comment on above: Performed By: #### 5 43, 542, 545, 539 #### [facility] [place] [address] [address] , [address] [place] [address] Spring Tacker: Lenin Larson MD #### [id number] #### [facility], [address] [place] [address] Spring Tacker: Sejal Johns MD,PhD,HENRIETTA #### [id number] #### [facility]/[address] [place], [place] Spring Tacker: Sherwin Jay M.D.,PhD SEROTYPE 2 (2) 1.0 Normal [facility] Comment on above: Performed By: #### 5 43, 542, 545, 539 #### [facility] [place] [address] [address] , [address] [place] [address] Spring Tacker: Leinn Larson MD #### [id number] #### [facility], [address] [place] [address] Spring Tacker: Sejal Johns MD,PhD,HENRIETTA #### [id number] #### [facility]/[address] [place], [place] Spring Tacker: Sherwin Jay M.D.,PhD SEROTYPE 20 (20) 1.8 Normal [facility] Comment on above: Performed By: #### 5 43, 542, 545, 539 #### [facility] [place] [address] [address] , [address] [place] [address] Spring Tacker: Lenin Larson MD #### [id number] #### [facility], [address] [place] [address] Spring Tacker: Sejal Johns MD,PhD,HENRIETTA #### [id number] #### [facility]/[address] [place], [place] Spring Tacker: Sherwin Jay M.D.,PhD SEROTYPE 22 (22F) <0.3 Normal [facility] Comment on above: Performed By: #### 5 43, 542, 545, 539 #### [facility] [place] [address] [address] , [address] [place] [address] Spring Tacker: Lenin Larson MD #### [id number] #### [facility]/[place] [id number] Spring Tacker: Sejal Johns MD,PhD,HENRIETTA #### [id number] #### [facility]/[address] [place], [place] Spring Tacker: Sherwin Jay M.D.,PhD SEROTYPE 23 (23F) 4.9 Normal [facility] Comment on above: Performed By: #### 5 43, 542, 545, 539 #### [facility] [place] [address] [address] , [address] [place] [address] Spring Tacker: Lenin Larson MD #### [id number] #### [facility]/[address] Spring Tacker: Sejal Johns MD,PhD,HENRIETTA #### [id number] #### [facility]/[address] [place], [place] Spring Tacker: Sherwin Jay M.D.,PhD SEROTYPE 26 (6B) 0.5 Normal [facility] Comment on above: Performed By: #### 5 43, 542, 545, 539 #### [facility] [address], [address] [place], [place] [address] Spring Tacker: Lenin Larson MD #### [id number] #### [facility], [address] [place] [address] Spring Tacker: Sejal Johns MD,PhD,HENRIETTA #### [id number] #### [facility]/[address] [place], [place] Spring Tacker: Sherwin Jay M.D.,PhD SEROTYPE 3 (3) 0.7 Normal [facility] Comment on above: Performed By: #### 5 43, 542, 545, 539 #### [facility] [address], [address] [place] [address] Spring Tacker: Lenin Larson MD #### [id number] #### [facility], [address] [place] [address] Spring Tacker: Sejal Johns MD,PhD,HENRIETTA #### [id number] #### [facility]/[address] [place], [place] Spring Tacker: Sherwin Jay M.D.,PhD SEROTYPE 34 (10A) 1.3 Normal [facility] Comment on above: Performed By: #### 5 43, 542, 545, 539 #### [facility] [address], [address] [place] [address] Spring Tacker: Lenin Larson MD #### [id number] #### [facility], [address] [place] [address] Spring Tacker: Sejal Johns MD,PhD,HENRIETTA #### [id number] #### [facility]/[place] [id number] [facility] [address] [place] Spring Tacker: Sherwin Jay M.D.,PhD SEROTYPE 4 (4) 2.1 Normal [facility] Comment on above: Performed By: #### 5 43, 542, 545, 539 #### [facility] [place] [address], [address] [place] [address] Spring Tacker: Lenin Larson MD #### [id number] #### [facility], [address] [place] [address] Spring Tacker: Sejal Johns MD,PhD,HENRIETTA #### [id number] #### [facility]/[address] [place], [place] Spring Tacker: Sherwin Jay M.D.,PhD SEROTYPE 43 (11A) 1.0 Normal [facility] Comment on above: Performed By: #### 5 43, 542, 545, 539 #### [facility] [place] [address], [address] [place] [address] Spring Tacker: Lenin Larson MD #### [id number] #### [facility], [address] [place] [address] Spring Tacker: Sejal Johns MD,PhD,HENRIETTA #### [id number] #### [facility]/[address] [place], [place] Spring Tacker: Sherwin Jay M.D.,PhD SEROTYPE 5 (5) 4.8 Normal [facility] Comment on above: Performed By: #### 5 43, 542, 545, 539 #### [facility] [place] [address], [address] [place] [address] Spring Tacker: Lenin Larson MD #### [id number] #### [facility], [address] [place] [address] Spring Tacker: Sejal Johns MD,PhD,HENRIETTA #### [id number] #### [facility] [id number] [facility] [address] [place], [place] Spring Tacker: Sherwin Jay M.D.,PhD SEROTYPE 51 (7F) 13.1 Normal [facility] Comment on above: Performed By: #### 5 43, 542, 545, 539 #### [facility] [address], [address] [place] [address] Spring Tacker: Lenin Larson MD #### [id number] #### [facility], [address] [place] [address] Spring Tacker: Sejal Johns MD,PhD,HENRIETTA #### [id number] #### [facility]/[address] [place], [place] Spring Tacker: Sherwin Jay M.D.,PhD SEROTYPE 54 (15B) 3.0 Normal [facility] Comment on above: Performed By: #### 5 43, 542, 545, 539 #### [facility] [address], [address] [place] [address] Spring Tacker: Lenin Larson MD #### [id number] #### [facility], [address] [place] [address] Spring Tacker: Sejal Johns MD,PhD,HENRIETTA #### [id number] #### [facility] [address] [place], [place] Spring Tacker: Sherwin Jay M.D.,PhD SEROTYPE 56 (18C) 18.3 Normal [facility] Comment on above: Performed By: #### 5 43, 542, 545, 539 #### [facility] [address], [address] [place] [address] Spring Tacker: Lenin Larson MD #### [id number] #### [facility], [address] [place] [address] Spring Tacker: Sejal Johns MD,PhD,HENRIETTA #### [id number] #### [facility]/[address] [place] Spring Tacker: Sherwin Jay M.D.,PhD SEROTYPE 57 (19A) 14.1 Normal [facility] Comment on above: Performed By: #### 5 43, 542, 545, 539 #### [facility] [address], [address] [place] [address] Spring Tacker: Lenin Larson MD #### [id number] #### [facility], [address] [place], [place] Spring Tacker: Sejal Johns MD,PhD,HENRIETTA #### [id number] #### [facility] [address] [place] [address] [place], [place] Spring Tacker: Sherwin Jay M.D.,PhD SEROTYPE 68 (9V) 0.7 Normal [facility] Comment on above: Performed By: #### 5 43, 542, 545, 539 #### [facility] [address], [address] [place] [address] Spring Tacker: Lenin Larson MD #### [id number] #### [facility], [address] [place], [place] Spring Tacker: Sejal Johns MD,PhD,HENRIETTA #### [id number] #### [facility]/[address] [place] Spring Tacker: Sherwin Jay M.D.,PhD SEROTYPE 70 (33F) <0.3 Normal [facility] Comment on above: Result Comment: Sero logic correlates of protection against pneumococcal disease have not been rigorously established for all patient populations. Published data and expert consensus (including WHO) suggest protection from invasive disease usually occurs at levels >or =0.3-0.50 mcg/mL for healthy children receiving pneumococcal conjugate vaccines. Higher titers may be necessary to protect from non-invasive infection (e.g., pneumonia, otitis, sinusitis). Expert opinion suggests that a cut-off of >= 1.3 mcg/mL may be a more relevant value to assess antibody responses after pneumococcal polysaccharide vaccines or for immunocompromised patients. In addition to antibody quantity, protection also depends on antibody avidity and opsonophagocytic activity. Some experts consider that post-vaccination (4-6 weeks) IgG seroconversion and/or 2- to 4-fold rise in IgG titers for >50% to 70% of vaccine serotypes demonstrates a normal post-vaccine serologic response. Persons with high initial serotype-specific titers may have less robust responses. [employer] uses a multi-analyte immunodetection (MAID) method. The method employs the [employer] flow cytometric system which measures multiple analytes simultaneously. The FDA standard reference serum 89-S is used as the calibration standard. Results are reported in mcg/mL. This assay detects all of the 23 of the serotypes in the 23-valent polysaccharide vaccine and 12 of the 13 serotypes in the 13-valent conjugate vaccine. This test was developed and its analytical performance characteristics have been determined by [employer]. It has not been cleared or approved by FDA. This assay has been validated pursuant to the CLIA regulations and used for clinical purposes. For additional information, please refer to http://education.[employer]/faq/IGE829 (This link is being provided for informational/ educational purposes only.) Performed By: #### 5 97, 542, 544, 538 #### [facility] [address] [facility], [address] [place] [address] Spring Tacker: Lenin Larson MD #### [id number] #### [facility] [address] [place] [address] Spring Tacker: Sejal Johns MD,PhD,HENRIETTA #### [id number] #### [facility]/[address] [place], [place] Spring Tacker: Sherwin Jay M.D.,PhD SEROTYPE 8 (8) <0.3 Normal [facility] Comment on above: Performed By: #### 5 43, 542, 545, 539 #### [facility] [address], [address] [place] [address] Spring Tacker: Lenin Larson MD #### [id number] #### [facility], [address] [place], [place] [address] Spring Tacker: Sejal Johns MD,PhD,HENRIETTA #### [id number] #### [facility]/[address] [place], [place] Spring Tacker: Sherwin Jay M.D.,PhD SEROTYPE 9 (9N) <0.3 Normal [facility] Comment on above: Performed By: #### 5 43, 542, 545, 539 #### [facility] [address], [address] [place] [address] Spring Tacker: Lenin Larson MD #### [id number] #### [facility], [address] [place] [address] Spring Tacker: Sejal Johns MD,PhD,HENRIETTA #### [id number] #### [facility]/[address] [place] Spring Tacker: Sherwin Jay M.D.,PhD XR FOOT LEFT 3+ VIEWS (STAND ANN)on 08-13-2020 XR FOOT LEFT 3+ VIEWS (STANDARD) EXAMINATION: XR FOOT LEFT 3+ VIEWS (STANDARD) 08/13/2020 11:05 am HISTORY: ORDERING SYSTEM PROVIDED HISTORY: Charcot's joint of left foot, TECHNOLOGIST PROVIDED HISTORY: Illness/Other Reason for exam: F U LT CHARCOT FOOT Cancer History: u Surgery, RadiationHistory: u Encounter Type: Subsequent/Follow-u p Additional signs and symptoms: pain ORDERING SYSTEM PROVIDED DIAGNOSIS CODES: M14.672 Charcot's joint of left foot COMPARISON: 2020 FINDINGS: Standing 3 views. Neuropathic changes are seen involving the talonavicular joint with fragmentation of the navicular. There is a resultant pes planus deformity. This appears stable. No suggestion of osteomyelitis or acute fracture. No soft tissue gas collection or foreign body. IMPRESSION: Significant degenerative changes and fragmentation at the talonavicular joint similar to the prior examination. Resultant pes planus deformity. Findings compatible with Charcot foot. [employer] Workstation ID: [id number] Dictated by: JULIO GAN on SunAug 13, 2020 3:55:27 PM EDT Transcribed by: OMAYRA VILLAGRAN on SunAug 13, 2020 4:07:30 PM EDT Finalized by: JULIO GAN on SunAug 13, 2020 4:09:56 PM EDT [facility] Comment on above: Order Comment: Injur y/Trauma or Illness?:Illness/Other How long have you had these symptoms (acute/chronic)?:Chronic Reason for exam?:F U LT CHARCOT FOOT History of cancer?:u Surgeries, chemotherapy, or radiation?:u Type of Exam?:Subsequent/Follow-up Additional signs and symptoms?:pain CV IR EPIDURAL STEROID INJon 07-13-2020 CV IR EPIDURAL STEROID INJ EXAMINATION: FLUOROSCOPIC GUIDED STEROID INJECTION OF THE BILATERAL TALONAVICULAR AND CALCANEOCUBOID JOINTS (FOUR JOINTS) HISTORY: Bilateral Charcot foot PIGMENT MAKING SUPERVISOR(S): Senait Ochoa MD COMPARISON: Bilateral foot radiographs dated 2020; CONTRAST: Isovue-300 2 mL MODERATE SEDATION: None MEDICATIONS: Lidocaine 1% 10 mL SQ; methylprednisolone 80 mg intra-articular; bupivacaine 0.5% 4 mL intra-articular FLUOROSCOPY DOSE AND TYPE OR TIME AND EXPOSURES: Dose Area Product: 2.07 Gy-cm 2 Cumulative Air KERMA: 36.7 mGy FLUOROSCOPY TIME: 17.8 minutes COMPLICATIONS: None TECHNIQUE AND FINDINGS: The procedure, risks, benefits, and alternative therapies were discussed in detail, and written informed consent was obtained. A time out was performed to verify correct patient and procedure. The patient was monitored by the radiology nurse at all times. The patient was placed supine on the fluoroscopy table. The left foot was positioned flat on the table. Senior Telecommunications Technician fluoroscopic images demonstrate severe degenerative changes at the talonavicular and calcaneocuboid joints. The x-ray beam was obliqued to provide optimal visualization of the left talonavicular joint space. This was difficult to identify precisely due to the severity of degenerative changes. The left talonavicular joint was targeted under fluoroscopy, and an appropriate entry point was identified. The overlying skin was marked, prepped, and draped in the usual sterile fashion. Local anesthesia was achieved with 1% lidocaine. Under fluoroscopic guidance, a 27-gauge needle was advanced to an intra-articular or immediate periarticular location at the left talonavicular joint. Needle position was confirmed by contrast injection. Then, approximately 20 mg of methylprednisolone and 1 mL of 0.5% bupivacaine were administered into the left talonavicular joint. The needle was removed and hemostasis was achieved by manual pressure. The above procedure was then repeated for the left calcaneocuboid joint. The left calcaneocuboid joint was also difficult to identify precisely due to severity of degenerative changes. In a manner similar to that described above, approximately 20 mg of methylprednisolone and 1 mL of 0.5% bupivacaine were administered into the left calcaneocuboid joint. Next, the right foot was positioned flat on the table. Senior Telecommunications Technician fluoroscopic images demonstrate moderately severe degenerative changes at the talonavicular and calcaneocuboid joints. The x-ray beam was obliqued to provide optimal visualization of the right talonavicular joint space. The right talonavicular joint was targeted under fluoroscopy, and an appropriate entry point was identified. The overlying skin was marked, prepped, and draped in the usual sterile fashion. Local anesthesia was achieved with 1% lidocaine. Under fluoroscopic guidance, a 27-gauge needle was advanced into the right talonavicular joint space. Needle position was confirmed by contrast injection. Then, approximately 20 mg of methylprednisolone and 1 mL of 0.5% bupivacaine were administered into the right talonavicular joint. The needle was removed and hemostasis was achieved by manual pressure. The above procedure was then repeated for the right calcaneocuboid joint. In this manner, approximately 20 mg of methylprednisolone and 1 mL of 0.5% bupivacaine were administered into the right calcaneocuboid joint. There were no immediate complications and the patient tolerated the procedure well. IMPRESSION: 1. Severe degenerative changes of the left talonavicular and naviculocuneiform joints, consistent with Charcot foot. 2. Successful administration of steroid and local anesthetic into the left talonavicular and naviculocuneiform joints using fluoroscopic guidance. 3. Moderately severe degenerative changes of the right talonavicular and naviculocuneiform joints. 4. Successful administration of steroid and local anesthetic into the right talonavicular and naviculocuneiform joints using fluoroscopic guidance. Workstation ID: [id number] Dictated by: SENAIT OCHOA on SunJul 16, 2020 8:33:46 AM EDT Transcribed by: SENAIT OCHOA on SunJul 16, 2020 8:33:46 AM EDT Finalized by: SENAIT OCHOA on SunJul 16, 2020 8:33:46 AM EDT [facility] 2020 Degenerative changes without acute osseous abnormality. Workstation ID: [id number] [facility] EXAMINATION: XR ANKLE RIGHT 2 VIEWS; XR FOOT RIGHT 3+ VIEWS (STANDARD); XR FOOT LEFT 3+ VIEWS (STANDARD) 2020 10:36 am HISTORY: ORDERING SYSTEM PROVIDED HISTORY: Pain, TECHNOLOGIST PROVIDED HISTORY: Illness/Other Reason for exam: Chroni B/L Foot pain Lt worse than Rt. Charcot Cancer History: u Surgery, RadiationHistory: u Encounter Type: Initial Additional signs and symptoms: u ORDERING SYSTEM PROVIDED DIAGNOSIS CODES: R52 Pain COMPARISON: 09/04/2019 FINDINGS: Right ankle: There is no acute displaced fracture or dislocation. The ankle mortise is intact. The talar dome is intact. Right foot: There is no acute fracture or dislocation. LisFranc joint is intact. The midfoot is congruent with mild pes planus deformity. There are postsurgical changes involving the 1st MTP joint. 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 Distal Achilles enthesophytes and inferior calcaneal spur noted. There is nonspecific soft tissue swelling about the ankle and foot. Left foot: There is no acute displaced fracture or dislocation. The Lisfranc joint is intact. The midfoot is congruent with moderate to severe osteoarthritis, most notably at the talonavicular joint. Inferior calcaneal spur and distal Achilles enthesophytes are present. There is diffuse soft tissue swelling about the forefoot. [facility] Interface, Rad In Fuji Speechq - 2020 12:52 PM EDT EXAMINATION: XR ANKLE RIGHT 2 VIEWS; XR FOOT RIGHT 3+ VIEWS (STANDARD); XR FOOT LEFT 3+ VIEWS (STANDARD) 2020 10:36 am HISTORY: ORDERING SYSTEM PROVIDED HISTORY: Pain, TECHNOLOGIST PROVIDED HISTORY: Illness/Other Reason for exam: Chroni B/L Foot pain Lt worse than Rt. Charcot Cancer History: u Surgery, RadiationHistory: u Encounter Type: Initial Additional signs and symptoms: u ORDERING SYSTEM PROVIDED DIAGNOSIS CODES: R52 Pain COMPARISON: 09/04/2019 FINDINGS: Right ankle: There is no acute displaced fracture or dislocation. The ankle mortise is intact. The talar dome is intact. Right foot: There is no acute fracture or dislocation. LisFranc joint is intact. The midfoot is congruent with mild pes planus deformity. There are postsurgical changes involving the 1st MTP joint. 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 Distal Achilles enthesophytes and inferior calcaneal spur noted. There is nonspecific soft tissue swelling about the ankle and foot. Left foot: There is no acute displaced fracture or dislocation. The Lisfranc joint is intact. The midfoot is congruent with moderate to severe osteoarthritis, most notably at the talonavicular joint. Inferior calcaneal spur and distal Achilles enthesophytes are present. There is diffuse soft tissue swelling about the forefoot. IMPRESSION: Degenerative changes without acute osseous abnormality. Workstation ID: [id number] [facility] XR ANKLE RIGHT 2 VIEWSon XR ANKLE RIGHT 2 VIEWS EXAMINATION: XR ANKLE RIGHT 2 VIEWS; XR FOOT RIGHT 3+ VIEWS (STANDARD); XR FOOT LEFT 3+ VIEWS (STANDARD) 2020 10:36 am HISTORY: ORDERING SYSTEM PROVIDED HISTORY: Pain, TECHNOLOGIST PROVIDED HISTORY: Illness/Other Reason for exam: Chroni B/L Foot pain Lt worse than Rt. Charcot Cancer History: u Surgery, RadiationHistory: u Encounter Type: Initial Additional signs and symptoms: u ORDERING SYSTEM PROVIDED DIAGNOSIS CODES: R52 Pain COMPARISON: 09/04/2019 FINDINGS: Right ankle: There is no acute displaced fracture or dislocation. The ankle mortise is intact. The talar dome is intact. Right foot: There is no acute fracture or dislocation. LisFranc joint is intact. The midfoot is congruent with mild pes planus deformity. There are postsurgical changes involving the 1st MTP joint. 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 Distal Achilles enthesophytes and inferior calcaneal spur noted. There is nonspecific soft tissue swelling about the ankle and foot. Left foot: There is no acute displaced fracture or dislocation. The Lisfranc joint is intact. The midfoot is congruent with moderate to severe osteoarthritis, most notably at the talonavicular joint. Inferior calcaneal spur and distal Achilles enthesophytes are present. There is diffuse soft tissue swelling about the forefoot. IMPRESSION: Degenerative changes without acute osseous abnormality. Workstation ID: [id number] Dictated by: DULCE DUFF on SunMarch 09, 2020 12:49:55 PM EDT Transcribed by: DULCE DUFF on SunMarch 09, 2020 12:49:55 PM EDT Finalized by: DULCE DUFF on SunMarch 09, 2020 12:49:55 PM EDT [facility] Comment on above: Order Comment: STAND ING Injury/Trauma or Illness?:Illness/Other How long have you had these symptoms (acute/chronic)?:Chronic Reason for exam?:Chroni B/L Foot pain Lt worse than Rt. Charcot History of cancer?:u Surgeries, chemotherapy, or radiation?:u Type of Exam?:Initial Additional signs and symptoms?:u XR FOOT LEFT 3+ VIEWS (STAND ANN)on 2020 XR FOOT LEFT 3+ VIEWS (STANDARD) EXAMINATION: XR ANKLE RIGHT 2 VIEWS; XR FOOT RIGHT 3+ VIEWS (STANDARD); XR FOOT LEFT 3+ VIEWS (STANDARD) 2020 10:36 am HISTORY: ORDERING SYSTEM PROVIDED HISTORY: Pain, TECHNOLOGIST PROVIDED HISTORY: Illness/Other Reason for exam: Chroni B/L Foot pain Lt worse than Rt. Charcot Cancer History: u Surgery, RadiationHistory: u Encounter Type: Initial Additional signs and symptoms: u ORDERING SYSTEM PROVIDED DIAGNOSIS CODES: R52 Pain COMPARISON: 09/04/2019 FINDINGS: Right ankle: There is no acute displaced fracture or dislocation. The ankle mortise is intact. The talar dome is intact. Right foot: There is no acute fracture or dislocation. LisFranc joint is intact. The midfoot is congruent with mild pes planus deformity. There are postsurgical changes involving the 1st MTP joint. 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 Distal Achilles enthesophytes and inferior calcaneal spur noted. There is nonspecific soft tissue swelling about the ankle and foot. Left foot: There is no acute displaced fracture or dislocation. The Lisfranc joint is intact. The midfoot is congruent with moderate to severe osteoarthritis, most notably at the talonavicular joint. Inferior calcaneal spur and distal Achilles enthesophytes are present. There is diffuse soft tissue swelling about the forefoot. IMPRESSION: Degenerative changes without acute osseous abnormality. Workstation ID: [id number] Dictated by: DULCE DUFF on SunMarch 09, 2020 12:49:55 PM EDT Transcribed by: DULCE DUFF on SunMarch 09, 2020 12:49:55 PM EDT Finalized by: DULCE DUFF on SunMarch 09, 2020 12:49:55 PM EDT [facility] Comment on above: Order Comment: Injur y/Trauma or Illness?:Illness/Other How long have you had these symptoms (acute/chronic)?:Chronic Reason for exam?:Chroni B/L Foot pain Lt worse than Rt. Charcot History of cancer?:u Surgeries, chemotherapy, or radiation?:u Type of Exam?:Initial Additional signs and symptoms?:un XR FOOT RIGHT 3+ VIEWS (JOHN VARGAS)on 2020 XR FOOT RIGHT 3+ VIEWS (STANDARD) EXAMINATION: XR ANKLE RIGHT 2 VIEWS; XR FOOT RIGHT 3+ VIEWS (STANDARD); XR FOOT LEFT 3+ VIEWS (STANDARD) 2020 10:36 am HISTORY: ORDERING SYSTEM PROVIDED HISTORY: Pain, TECHNOLOGIST PROVIDED HISTORY: Illness/Other Reason for exam: Chroni B/L Foot pain Lt worse than Rt. Charcot Cancer History: u Surgery, RadiationHistory: u Encounter Type: Initial Additional signs and symptoms: u ORDERING SYSTEM PROVIDED DIAGNOSIS CODES: R52 Pain COMPARISON: 09/04/2019 FINDINGS: Right ankle: There is no acute displaced fracture or dislocation. The ankle mortise is intact. The talar dome is intact. Right foot: There is no acute fracture or dislocation. LisFranc joint is intact. The midfoot is congruent with mild pes planus deformity. There are postsurgical changes involving the 1st MTP joint. 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 Distal Achilles enthesophytes and inferior calcaneal spur noted. There is nonspecific soft tissue swelling about the ankle and foot. Left foot: There is no acute displaced fracture or dislocation. The Lisfranc joint is intact. The midfoot is congruent with moderate to severe osteoarthritis, most notably at the talonavicular joint. Inferior calcaneal spur and distal Achilles enthesophytes are present. There is diffuse soft tissue swelling about the forefoot. IMPRESSION: Degenerative changes without acute osseous abnormality. Workstation ID: [id number] Dictated by: DULCE DUFF on SunMarch 09, 2020 12:49:55 PM EDT Transcribed by: DULCE DUFF on SunMarch 09, 2020 12:49:55 PM EDT Finalized by: DULCE DUFF on SunMarch 09, 2020 12:49:55 PM EDT [facility] Comment on above: Order Comment: Injur y/Trauma or Illness?:Illness/Other How long have you had these symptoms (acute/chronic)?:Chronic Reason for exam?:Chroni B/L Foot pain Lt worse than Rt. Charcot History of cancer?:u Surgeries, chemotherapy, or radiation?:u Type of Exam?:Initial Additional signs and symptoms?:u XR FOOT LEFT 3+ VIEWS (STAND ANN)on 09-04-2019 Charcot changes of the midfoot are noted. No other acute abnormalities. [facility] Workstation ID: [id number] [facility] EXAMINATION: XR FOOT LEFT 3+ VIEWS (STANDARD) HISTORY: ORDERING SYSTEM PROVIDED HISTORY: Charcot's joint of left foot, TECHNOLOGIST PROVIDED HISTORY: Illness/Other Reason for exam: lt foot pain Cancer History: u Surgery, RadiationHistory: u Encounter Type: Subsequent/Follow-u p Additional signs and symptoms: LT CHARCOT FOOT WITH NEUROPATHY ORDERING SYSTEM PROVIDED DIAGNOSIS CODES: M14.672 Charcot's joint of left foot COMPARISON: 03/12/2019. FINDINGS: Three views of the left foot. There are no acute fractures or dislocations. No radiopaque foreign bodies. There are Charcot changes involving the midfoot. No aggressive appearing erosive bony changes. [facility] Interface, Rad In Fuji Speechq - 09/04/2019 3:30 PM EST EXAMINATION: XR FOOT LEFT 3+ VIEWS (STANDARD) HISTORY: ORDERING SYSTEM PROVIDED HISTORY: Charcot's joint of left foot, TECHNOLOGIST PROVIDED HISTORY: Illness/Other Reason for exam: lt foot pain Cancer History: u Surgery, RadiationHistory: u Encounter Type: Subsequent/Follow-u p Additional signs and symptoms: LT CHARCOT FOOT WITH NEUROPATHY ORDERING SYSTEM PROVIDED DIAGNOSIS CODES: M14.672 Charcot's joint of left foot COMPARISON: 03/12/2019. FINDINGS: Three views of the left foot. There are no acute fractures or dislocations. No radiopaque foreign bodies. There are Charcot changes involving the midfoot. No aggressive appearing erosive bony changes. IMPRESSION: Charcot changes of the midfoot are noted. No other acute abnormalities. [facility] Work[facility] ID: [id number] [facility] XR FOOT LEFT 3+ VIEWS (STANDARD) EXAMINATION: XR FOOT LEFT 3+ VIEWS (STANDARD) HISTORY: ORDERING SYSTEM PROVIDED HISTORY: Charcot's joint of left foot, TECHNOLOGIST PROVIDED HISTORY: Illness/Other Reason for exam: lt foot pain Cancer History: u Surgery, RadiationHistory: u Encounter Type: Subsequent/Follow-u p Additional signs and symptoms: LT CHARCOT FOOT WITH NEUROPATHY ORDERING SYSTEM PROVIDED DIAGNOSIS CODES: M14.672 Charcot's joint of left foot COMPARISON: 03/12/2019. FINDINGS: Three views of the left foot. There are no acute fractures or dislocations. No radiopaque foreign bodies. There are Charcot changes involving the midfoot. No aggressive appearing erosive bony changes. IMPRESSION: Charcot changes of the midfoot are noted. No other acute abnormalities. [facility] Work[facility] ID: [id number] Dictated by: VALERY BETH on SunSep 04, 2019 2:30:50 PM EST Transcribed by: [facility] on SunSep 04, 2019 3:05:20 PM EST Finalized by: VALERY BETH on SunSep 04, 2019 3:27:26 PM EST Normal [facility] Comment on above: Order Comment: Injur y/Trauma or Illness?:Illness/Other How long have you had these symptoms (acute/chronic)?:Chronic Reason for exam?:lt foot pain History of cancer?:u Surgeries, chemotherapy, or radiation?:u Type of Exam?:Subsequent/Follow-up Additional signs and symptoms?: LT CHARCOT FOOT WITH NEUROPATHY XR FOOT LEFT 3+ VIEWS (STAND ANN)on 03-12-2019 1. Significant hindfoot/midfoot degenerative arthritis with subchondral cystic change in the talus, navicular, and cuneiforms with some medial subluxation of the talus, unchanged from 02/05/2019. These findings may reflect remote trauma. 2. Mild pes planus deformity. 3. No new findings. PRL/ads Workstation ID: [id number] [facility] EXAMINATION: XR FOOT LEFT 3+ VIEWS (STANDARD) HISTORY: ORDERING SYSTEM PROVIDED HISTORY: Pain, TECHNOLOGIST PROVIDED HISTORY: Reason for exam: pain in left foot for 6 years, pt. states no injury. Illness/Other Cancer History: u Surgery, RadiationHistory: u Encounter Type: Initial Additional signs and symptoms: pain and tenderness ORDERING SYSTEM PROVIDED DIAGNOSIS CODES: R52 Pain COMPARISON: 02/05/2019 is the comparison. FINDINGS: Three projections. There is a mild pes planus deformity. There is advanced degenerative arthritis between the talus and naviculas and naviculas and cuneiforms. This is unchanged. No acute fracture. The navicular bone appears subluxed in a medial direction by approximately 5 mm. This is stable. [facility] Interface, Rad In Fuji Speechq - 03/12/2019 1:23 PM EDT EXAMINATION: XR FOOT LEFT 3+ VIEWS (STANDARD) HISTORY: ORDERING SYSTEM PROVIDED HISTORY: Pain, TECHNOLOGIST PROVIDED HISTORY: Reason for exam: pain in left foot for 6 years, pt. states no injury. Illness/Other Cancer History: u Surgery, RadiationHistory: u Encounter Type: Initial Additional signs and symptoms: pain and tenderness ORDERING SYSTEM PROVIDED DIAGNOSIS CODES: R52 Pain COMPARISON: 02/05/2019 is the comparison. FINDINGS: Three projections. There is a mild pes planus deformity. There is advanced degenerative arthritis between the talus and naviculas and naviculas and cuneiforms. This is unchanged. No acute fracture. The navicular bone appears subluxed in a medial direction by approximately 5 mm. This is stable. IMPRESSION: 1. Significant hindfoot/midfoot degenerative arthritis with subchondral cystic change in the talus, navicular, and cuneiforms with some medial subluxation of the talus, unchanged from 02/05/2019. These findings may reflect remote trauma. 2. Mild pes planus deformity. 3. No new findings. PRL/ads Workstation ID: [id number] [facility] MR COMPARISON IMPORTon 02-06 This order has been auto-finalized and does not contain a result. [facility] XR COMPARISON IMPORTon 02-06 This order has been auto-finalized and does not contain a result. [facility] Vital Signs Date Time Vital Sign Value Performing Clinician Marcel marie 05-12-2024 18:54-0400 Blood Pressure Location Mara BEVERLY [facility] 05-12-2024 18:54-0400 Diastolic blood pressure 80 mm[Hg] Mara BEVERLY [facility] 05-12-2024 18:54-0400 Heart rate 67 /min Mara Panl [facility] 05-12-2024 18:54-0400 Respiratory rate 20 /min Mara Panl [facility] 05-12-2024 18:54-0400 SaO2% (BldA) [Mass fraction] 98 % Mara Panl [facility] 05-12-2024 18:54-0400 Systolic blood pressure 130 mm[Hg] Mara BEVERLY [facility] 04-08-2024 13:15-0400 Blood Pressure Location EMELYN CHOWDARYTIZ [facility] 04-08-2024 13:15-0400 Diastolic blood pressure 76 mm[Hg] EMELYN POLK [facility] 04-08-2024 13:15-0400 Heart rate 65 /min EMELYN POLK [facility] 04-08-2024 13:15-0400 SaO2% (BldA) [Mass fraction] 98 % TRENTON POLK [facility] 04-08-2024 13:15-0400 Systolic blood pressure 138 mm[Hg] EMELYN POLK [facility] 03-24-2024 23:56-0400 Diastolic blood pressure 82 mm[Hg] Yuniel Ninfa [facility] 03-24-2024 23:56-0400 Heart rate 77 /min Yuniel Ninfa [facility] 03-24-2024 23:56-0400 Mean blood pressure 99 mm[Hg] Yuniel Ninfa [facility] 03-24-2024 23:56-0400 Respiratory rate 14 /min Yuniel Ninfa [facility] 03-24-2024 23:56-0400 SaO2% (BldA) [Mass fraction] 96 % Yuniel Ninfa [facility] 03-24-2024 23:56-0400 Systolic blood pressure 132 mm[Hg] Yuniel Ninfa [facility] 03-24-2024 23:24-0400 Heart rate 80 /min Yuniel Ninfa [facility] 03-24-2024 23:24-0400 Respiratory rate 20 /min Yuniel Ninfa [facility] 03-24-2024 23:15-0400 Heart rate 81 /min Yuniel Ninfa [facility] 03-24-2024 23:15-0400 Respiratory rate 20 /min Yuniel Ninfa [facility] 03-24-2024 23:15-0400 SaO2% (BldA) [Mass fraction] 99 % Yuniel Ninfa [facility] 03-24-2024 22:50-0400 Body temperature 98.24 [degF] Yuniel Ninfa [facility] 03-24-2024 22:50-0400 Diastolic blood pressure 75 mm[Hg] Yuniel Ninfa [facility] 03-24-2024 22:50-0400 Heart rate 86 /min Yuniel Ninfa [facility] 03-24-2024 22:50-0400 Respiratory rate 24 /min Yuniel Ninfa [facility] 03-24-2024 22:50-0400 SaO2% (BldA) [Mass fraction] 99 % Yuniel Ninfa [facility] 03-24-2024 22:50-0400 Systolic blood pressure 151 mm[Hg] Yuniel Ninfa [facility] 03-21-2024 14:41-0400 Blood Pressure Location Christhugh Panl [facility] 03-21-2024 14:41-0400 Body temperature 98.24 [degF] Christopher BROWN [facility] 03-21-2024 14:41-0400 Diastolic blood pressure 80 mm[Hg] Christopher BROWN [facility] 03-21-2024 14:41-0400 Heart rate 70 /min Christopher BROWN [facility] 03-21-2024 14:41-0400 Respiratory rate 16 /min Christopher BROWN [facility] 03-21-2024 14:41-0400 SaO2% (BldA) [Mass fraction] 97 % Christopher BROWN [facility] 03-21-2024 14:41-0400 Systolic blood pressure 136 mm[Hg] Christopher BROWN [facility] 03-10-2024 18:42-0400 Diastolic blood pressure 86 mm[Hg] Christopher BROWN [facility] 03-10-2024 18:42-0400 Mean blood pressure 103 mm[Hg] Christopher BROWN [facility] 03-10-2024 18:42-0400 Systolic blood pressure 138 mm[Hg] Christopher BROWN [facility] 03-10-2024 18:07-0400 Blood Pressure Location Christangeler BROWN [facility] 03-10-2024 18:07-0400 Body temperature 98.24 [degF] Christopher BROWN [facility] 03-10-2024 18:07-0400 Diastolic blood pressure 90 mm[Hg] Christopher BROWN [facility] 03-10-2024 18:07-0400 Heart rate 77 /min Christopher BROWN [facility] 03-10-2024 18:07-0400 Respiratory rate 20 /min Christopher BROWN [facility] 03-10-2024 18:07-0400 SaO2% (BldA) [Mass fraction] 98 % Christopher BROWN [facility] 03-10-2024 18:07-0400 Systolic blood pressure 140 mm[Hg] Christopher BROWN [facility] 12-10-2023 18:36-0500 Blood Pressure Location Christopher BROWN [facility] 12-10-2023 18:36-0500 Diastolic blood pressure 80 mm[Hg] Mara BEVERLY [facility] 12-10-2023 18:36-0500 Heart rate 77 /min Pandagreer BEVERLY [facility] 12-10-2023 18:36-0500 Respiratory rate 16 /min Albinohugh BEVERLY [facility] 12-10-2023 18:36-0500 SaO2% (BldA) [Mass fraction] 96 % Mara BEVERLY [facility] 12-10-2023 18:36-0500 Systolic blood pressure 132 mm[Hg] Mara BEVERLY [facility] 10-17-2023 14:46-0500 Blood Pressure Location Mara BEVERLY [facility] 10-17-2023 14:46-0500 Body temperature 97.88 [degF] Albinoangelgreer SIRIA [facility] 10-17-2023 14:46-0500 Diastolic blood pressure 66 mm[Hg] Mara BEVERLY [facility] 10-17-2023 14:46-0500 Heart rate 65 /min Mara BEVERLY [facility] 10-17-2023 14:46-0500 SaO2% (BldA) [Mass fraction] 97 % Mara BEVERLY [facility] 10-17-2023 14:46-0500 Systolic blood pressure 128 mm[Hg] Mara BEVERLY [facility] 05-17-2023 14:00-0400 Hourly Rounding Melva Grimaldo [facility] 05-17-2023 12:00-0400 Hourly Rounding Melva Grimaldo [facility] 05-17-2023 12:00-0400 Promise to Return Melva Grimaldo [facility] 05-17-2023 11:57-0400 Hourly Rounding Melva Grimaldo [facility] 05-17-2023 11:57-0400 Promise to Return Melva Grimaldo [facility] 05-17-2023 11:37-0400 Heart rate 69 /min Melva Grimaldo [facility] 05-17-2023 11:37-0400 SaO2% (BldA) [Mass fraction] 97 % Melva Grimaldo [facility] 05-17-2023 11:37-0400 Diastolic blood pressure 66 mm[Hg] Melva Grimaldo [facility] 05-17-2023 11:37-0400 Mean blood pressure 83 mm[Hg] Melva Grimaldo [facility] 05-17-2023 11:37-0400 Systolic blood pressure 117 mm[Hg] Melva Grimaldo [facility] 05-17-2023 11:37-0400 Body temperature 98.06 [degF] Melva Grimaldo [facility] 05-17-2023 10:06-0400 Promise to Return Melva Grimaldo [facility] 05-17-2023 08:47-0400 Heart rate 70 /min Melva Grimaldo [facility] 05-17-2023 08:47-0400 SaO2% (BldA) [Mass fraction] 96 % Melva Jc [facility] 05-17-2023 08:47-0400 Diastolic blood pressure 66 mm[Hg] Melva Grimaldo [facility] 05-17-2023 08:47-0400 Mean blood pressure 79 mm[Hg] Melva Grimaldo [facility] 05-17-2023 08:47-0400 Systolic blood pressure 105 mm[Hg] Melva Grimaldo [facility] 05-17-2023 08:47-0400 Body temperature 97.7 [degF] Melva Grimaldo [facility] 05-17-2023 08:11-0400 Heart rate 74 /min Melva Grimaldo [facility] 05-17-2023 08:11-0400 SaO2% (BldA) [Mass fraction] 97 % Melva Grimaldo [facility] 05-17-2023 04:30-0400 Blood Pressure Location Melva Grimaldo [facility] 05-17-2023 04:30-0400 Body temperature 98.06 [degF] Melva Grimaldo [facility] 05-17-2023 04:30-0400 Diastolic blood pressure 74 mm[Hg] Melva Grimaldo [facility] 05-17-2023 04:30-0400 Mean blood pressure 93 mm[Hg] Melva Grimaldo [facility] 05-17-2023 04:30-0400 Respiratory rate 18 /min Melva Grimaldo [facility] 05-17-2023 04:30-0400 Systolic blood pressure 130 mm[Hg] Melva Grimaldo [facility] 05-17-2023 02:18-0400 Body temperature 97.52 [degF] Melva Grimaldo [facility] 05-17-2023 02:18-0400 Mean blood pressure 85 mm[Hg] Melva Grimaldo [facility] 05-16-2023 23:38-0400 Body temperature 97.34 [degF] Melva Grimaldo [facility] 05-16-2023 23:38-0400 Mean blood pressure 95 mm[Hg] Melva Jc [facility] 05-16-2023 23:38-0400 Respiratory rate 17 /min Melva Grimaldo [facility] 05-16-2023 20:25-0400 Respiratory rate 16 /min Melva Grimaldo [facility] 05-16-2023 20:08-0400 Respiratory rate 16 /min Melva Jc [facility] 05-16-2023 16:52-0400 Body temperature 97.34 [degF] Melva Jc [facility] 05-16-2023 16:52-0400 Respiratory rate 12 /min Melva Jc [facility] 05-16-2023 16:40-0400 Respiratory rate 16 /min Melva Jc [facility] 05-16-2023 16:27-0400 Body temperature 97.34 [degF] Melva Jc [facility] 05-16-2023 12:15-0400 Blood Pressure Location Melva Jc [facility] 05-16-2023 12:12-0400 Heart rate 70 /min Melva Jc [facility] 03-23-2023 10:32-0400 Blood Pressure Location Mara BEVERLY [facility] 03-23-2023 10:32-0400 Diastolic blood pressure 74 mm[Hg] Mara BEVERLY [facility] 03-23-2023 10:32-0400 Heart rate 76 /min Mara BEVERLY [facility] 03-23-2023 10:32-0400 Respiratory rate 20 /min Mara BEVERLY [facility] 03-23-2023 10:32-0400 SaO2% (BldA) [Mass fraction] 98 % Mara BEVERLY [facility] 03-23-2023 10:32-0400 Systolic blood pressure 132 mm[Hg] Mara BEVERLY [facility] 01-19-2023 17:36-0400 Diastolic blood pressure 96 mm[Hg] Robyn David [facility] 01-19-2023 17:36-0400 Mean blood pressure 113 mm[Hg] Robyn David [facility] 01-19-2023 17:36-0400 Systolic blood pressure 148 mm[Hg] Robyn David [facility] 01-19-2023 16:43-0400 Blood Pressure Location Robyn David [facility] 01-19-2023 16:43-0400 Diastolic blood pressure 100 mm[Hg] Robyn David [facility] 01-19-2023 16:43-0400 Heart rate 87 /min Robyn David [facility] 01-19-2023 16:43-0400 Respiratory rate 20 /min Robyn David [facility] 01-19-2023 16:43-0400 SaO2% (BldA) [Mass fraction] 97 % Robyn Hernandez [facility] 01-19-2023 16:43-0400 Systolic blood pressure 150 mm[Hg] Robyn Hernandez [facility] 08-22-2022 09:41-0400 Diastolic blood pressure 66 mm[Hg] Nathalyyon LOPEZG [facility] 08-22-2022 09:41-0400 Mean blood pressure 92 mm[Hg] Nathalyyon LOPEZG [facility] 08-22-2022 09:41-0400 Systolic blood pressure 145 mm[Hg] Nathalyyon LOPEZG [facility] 08-22-2022 09:38-0400 Blood Pressure Location Nathalyyon LOPEZG [facility] 08-22-2022 09:38-0400 Diastolic blood pressure 71 mm[Hg] Nathalyyon LOPEZG [facility] 08-22-2022 09:38-0400 Heart rate 69 /min Nathalyyon LOPEZG [facility] 08-22-2022 09:38-0400 Respiratory rate 18 /min Nathalyyon LOPEZG [facility] 08-22-2022 09:38-0400 SaO2% (BldA) [Mass fraction] 96 % Nathaly STANG [facility] 08-22-2022 09:38-0400 Systolic blood pressure 147 mm[Hg] Nathaly STANG [facility] 08-12-2022 12:38-0400 Blood Pressure Location Kim TAMEZ [facility] 08-12-2022 12:38-0400 Body temperature 98.42 [degF] Kim TAMEZ [facility] 08-12-2022 12:38-0400 Diastolic blood pressure 86 mm[Hg] Kim TAMEZ [facility] 08-12-2022 12:38-0400 Heart rate 65 /min Kim TAMEZ [facility] 08-12-2022 12:38-0400 SaO2% (BldA) [Mass fraction] 97 % Kim TAMEZ [facility] 08-12-2022 12:38-0400 Systolic blood pressure 134 mm[Hg] Kim TAMEZ [facility] 06-28-2022 09:21-0400 Diastolic blood pressure 77 mm[Hg] Nathaly STANG [facility] 06-28-2022 09:21-0400 Mean blood pressure 107 mm[Hg] Nathaly STANG [facility] 06-28-2022 09:21-0400 Systolic blood pressure 168 mm[Hg] Nathaly STANG [facility] 06-28-2022 09:10-0400 Blood Pressure Location Nathaly STANG [facility] 06-28-2022 09:10-0400 Diastolic blood pressure 76 mm[Hg] Natahly STANG [facility] 06-28-2022 09:10-0400 Heart rate 60 /min Nathaly STANG [facility] 06-28-2022 09:10-0400 Respiratory rate 18 /min Nathaly STANG [facility] 06-28-2022 09:10-0400 SaO2% (BldA) [Mass fraction] 100 % Nathaly STANG [facility] 06-28-2022 09:10-0400 Systolic blood pressure 172 mm[Hg] Nathaly TURCIOS [facility] 05-18-2022 15:40-0400 Diastolic blood pressure 75 mm[Hg] Dolores Christofferson [facility] 05-18-2022 15:40-0400 Mean blood pressure 101 mm[Hg] Dolores Christofferson [facility] 05-18-2022 15:40-0400 Systolic blood pressure 154 mm[Hg] Dolores Christofferson [facility] 05-18-2022 15:30-0400 Blood Pressure Location Dolores Christofferson [facility] 05-18-2022 15:30-0400 Diastolic blood pressure 75 mm[Hg] Dolores Christofferson [facility] 05-18-2022 15:30-0400 Heart rate 81 /min Dolores Christofferson [facility] 05-18-2022 15:30-0400 Respiratory rate 18 /min Odlores Christofferson [facility] 05-18-2022 15:30-0400 SaO2% (BldA) [Mass fraction] 100 % Dolores Christofferson [facility] 05-18-2022 15:30-0400 Systolic blood pressure 173 mm[Hg] Dolores Christofferson [facility] 04-25-2022 18:29-0400 Diastolic blood pressure 62 mm[Hg] Mara BEVERLY [facility] 04-25-2022 18:29-0400 Mean blood pressure 87 mm[Hg] Mara BROWN [facility] 04-25-2022 18:29-0400 Systolic blood pressure 136 mm[Hg] Christopher BROWN [facility] [place] 04-25-2022 18:12-0400 Blood Pressure Location Christangeler BROWN [facility] 04-25-2022 18:12-0400 Body temperature 98.6 [degF] Christopher BROWN [facility] 04-25-2022 18:12-0400 Diastolic blood pressure 90 mm[Hg] Christopher BROWN [facility] 04-25-2022 18:12-0400 Heart rate 76 /min Christopher BROWN [facility] 04-25-2022 18:12-0400 Respiratory rate 18 /min Christopher BROWN [facility] 04-25-2022 18:12-0400 SaO2% (BldA) [Mass fraction] 96 % Christopher BROWN [facility] 04-25-2022 18:12-0400 Systolic blood pressure 156 mm[Hg] Christopher BROWN [facility] 03-14-2022 10:20-0400 Blood Pressure Location Christangeler BROWN [facility] 03-14-2022 10:20-0400 Diastolic blood pressure 80 mm[Hg] Mara BEVERLY [facility] 03-14-2022 10:20-0400 Heart rate 74 /min Mara BEVERLY [facility] 03-14-2022 10:20-0400 Respiratory rate 20 /min Mara BEVERLY [facility] 03-14-2022 10:20-0400 SaO2% (BldA) [Mass fraction] 95 % Mara BEVERLY [facility] 03-14-2022 10:20-0400 Systolic blood pressure 130 mm[Hg] Mara BROWN [facility] 07-15-2020 13:39-0400 BP Diastolic 61 mm[Hg] Senait Vikingstad [facility] 07-15-2020 13:39-0400 BP Systolic 126 mm[Hg] Senait [place]stad [facility] 07-15-2020 13:39-0400 Pulse (Heart Rate) 67 /min Senait [place] [facility] 07-15-2020 13:39-0400 Pulse Oximetry 96 % Senait [place] 07-15-2020 13:39-0400 Respiratory Rate 16 /min Senait [place] [facility] 07-13-2020 10:11-0400 BP Diastolic 75 mm[Hg] Senait [place] [facility] 07-13-2020 10:11-0400 BP Systolic 140 mm[Hg] Senait [place] [facility] 07-13-2020 10:00-0400 BMI (Body Mass Index) 39.89 kg/m2 Senait [place] [facility] 07-13-2020 10:00-0400 Body weight 126.1 kg Senait Joanna [facility] 07-13-2020 10:00-0400 Height 177.8 cm Senait Joanna [facility] 07-13-2020 10:00-0400 Pulse (Heart Rate) 67 /min Senait Yulisaad [facility] 06-14-2020 10:39-0400 BMI (Body Mass Index) 39.31 kg/m2 Carlos Carter [facility] 06-14-2020 10:39-0400 Body weight 124.29 kg Carlos Exten [facility] 06-14-2020 10:39-0400 BP Diastolic 80 mm[Hg] Carlos Exten [facility] 06-14-2020 10:39-0400 BP Systolic 114 mm[Hg] Carlos Carter [facility] 06-14-2020 10:39-0400 Height 177.8 cm Carlos Carter [facility] 06-14-2020 10:39-0400 Pulse (Heart Rate) 73 /min Carlos Carter [facility] 06-02-2020 14:37-0400 BMI (Body Mass Index) 39.39 kg/m2 Javier Patsyhomarcoso [facility] 06-02-2020 14:37-0400 Body weight 124.51 kg Javier Jakydko [facility] 06-02-2020 14:37-0400 BP Diastolic 82 mm[Hg] Javier Prykhodko [facility] 06-02-2020 14:37-0400 BP Systolic 146 mm[Hg] Javier Prsheilahodko [facility] 06-02-2020 14:37-0400 Height 177.8 cm Javier Rajendrao [facility] 06-02-2020 14:37-0400 Pulse (Heart Rate) 71 /min Javier Prykhodko [facility] 06-02-2020 14:37-0400 Pulse Oximetry 96 % Javier Patsyhodko [facility] 04-20-2020 13:51-0400 BMI (Body Mass Index) 38.31 kg/m2 [facility]2020 13:51-0400 Body weight 121.11 kg [employer] [facility] 04-20-2020 13:51-0400 BP Diastolic 85 mm[Hg] [facility] 04-20-2020 13:51-0400 BP Systolic 151 mm[Hg] [facility] 04-20-2020 13:51-0400 Height 177.8 cm [facility] 04-20-2020 13:51-0400 Pulse (Heart Rate) 61 /min [facility] 04-20-2020 13:51-0400 Pulse Oximetry 99 % [facility] 2020 14:03-0400 BMI (Body Mass Index) 39.67 kg/m2 [facility] 2020 14:03-0400 Body weight 125.42 kg [facility] 2020 14:03-0400 BP Diastolic 78 mm[Hg] [facility] 2020 14:03-0400 BP Systolic 144 mm[Hg] [facility] 2020 14:03-0400 Height 177.8 cm [facility] 2020 14:03-0400 Pulse (Heart Rate) 72 /min [facility] 2020 14:03-0400 Pulse Oximetry 99 % [facility] 2020 10:32-0400 BMI (Body Mass Index) 40.89 kg/m2 Carlos Carter [facility] 2020 10:32-0400 Body weight 129.28 kg Carlos Carter [facility] 2020 10:32-0400 BP Diastolic 70 mm[Hg] Carlos Exten [facility] 2020 10:32-0400 BP Systolic 151 mm[Hg] Carlos Exten [facility] 2020 10:32-0400 Height 177.8 cm Carlos Carter [facility] 2020 10:32-0400 Pulse (Heart Rate) 69 /min Carlos Carter [facility] 09-04-2019 08:31-0500 BMI (Body Mass Index) 40.89 kg/m2 Carlos Exten [facility] 09-04-2019 08:31-0500 Body weight 129.28 kg Carlos Carter [facility] 09-04-2019 08:31-0500 BP Diastolic 84 mm[Hg] Carlos Exten [facility] 09-04-2019 08:31-0500 BP Systolic 147 mm[Hg] Carlos Carter [facility] 09-04-2019 08:31-0500 Height 177.8 cm Carlos [facility] 09-04-2019 08:31-0500 Pulse (Heart Rate) 59 /min Carlos [facility] 03-12-2019 10:07-0400 BMI (Body Mass Index) 40.89 kg/m2 Carlos [facility] 03-12-2019 10:07-0400 BP Diastolic 87 mm[Hg] Carlos [facility] 03-12-2019 10:07-0400 BP Systolic 146 mm[Hg] Carlos [facility] 03-12-2019 10:07-0400 Height 177.8 cm Carlos [facility] 03-12-2019 10:07-0400 Pulse (Heart Rate) 79 /min Carlos [facility] 03-12-2019 10:07-0400 Weight 129.28 kg Carlos [facility] 02-05-2019 14:07-0400 BMI (Body Mass Index) 40.89 kg/m2 [facility] 02-05-2019 14:07-0400 BP Diastolic 70 mm[Hg] Carlos [facility] 02-05-2019 14:07-0400 BP Systolic 120 mm[Hg] Carlos [facility] 02-05-2019 14:07-0400 Height 177.8 cm Carlos [facility] 02-05-2019 14:07-0400 Pulse (Heart Rate) 91 /min Carlos [facility] 02-05-2019 14:07-0400 Weight 129.28 kg [facility] Encounters Encounter Date Encounter Type Care Provider Facility Start: 08-19-2024 ambulatory Mara Joshua ity:[facility] Start: 07-29-2024 End: 07-29-2024 Bamboo flowsheet Haily Shepard MD Work Phone: [facility] Start: 07-29-2024 End: 07-29-2024 Gurinder Shepard MD Work Phone: [facility] Start: 07-29-2024 End: 07-29-2024 ambulatory HAILY SHEPARD Not Available Start: 07-14-2024 ambulatory Melva Campbell ty:[facility] Start: 07-10-2024 End: 07-10-2024 ambulatory MELVA Hernández GRIMALDO Not Available Start: 07-10-2024 End: 07-10-2024 ambulatory MELVA Hernández GRIMALDO Not Available Start: 06-19-2024 ambulatory Mara BEVERLY Facil ity:[facility] Start: 05-21-2024 ambulatory Mara BEVERLY Facil ity:[facility] Start: 05-14-2024 End: 05-14-2024 ambulatory Mara BEVERLY Facility:[facility] Start: 05-14-2024 End: 05-14-2024 Patient encounter procedure Mara BEVERLY [facility] Start: 05-13-2024 End: 05-13-2024 ambulatory MELVA Hernández GRIMALDO Not Available Start: 05-12-2024 End: 05-12-2024 Lab Drop off Mara BEVERLY [facility] Start: 05-12-2024 End: 05-12-2024 ambulatory Mara BEVERLY Facility: [facility] Start: 05-12-2024 End: 05-12-2024 Patient encounter procedure Mara BEVERLY [facility] Start: 04-14-2024 End: 04-14-2024 ambulatory Mara BEVERLY Facility:[facility] Start: 04-14-2024 End: 04-14-2024 Patient encounter procedure Mara BEVERLY [facility] Start: 04-08-2024 End: 04-08-2024 ambulatory EMELYN POLK Facility:[facility] Start: 04-08-2024 End: 04-08-2024 Patient encounter procedure EMELYN POLK [facility] Start: 03-24-2024 End: 03-25-2024 Emergency department patient visit Yuniel Ocasio [facility] Start: 03-21-2024 End: 03-21-2024 ambulatory Mara BEVERLY Facility: [facility] Start: 03-21-2024 End: 03-21-2024 Patient encounter procedure Mara BEVERLY [facility] Start: 03-10-2024 End: 03-10-2024 ambulatory Mara BEVERLY Facility: [facility] Start: 03-10-2024 End: 03-10-2024 Patient encounter procedure Mara BEVERLY [facility] Start: 12-10-2023 End: 12-10-2023 ambulatory Mara BEVERLY Facility: [facility] Start: 12-10-2023 End: 12-10-2023 Patient encounter procedure Mara BEVERLY [facility] Start: 10-18-2023 End: 10-18-2023 ambulatory DOLORES M MEDVES Not Available Start: 10-17-2023 End: 10-17-2023 ambulatory Mara BEVERLY Facility: [facility] Start: 10-17-2023 End: 10-17-2023 Patient encounter procedure Mara BEVERLY [facility] Start: 10-16-2023 End: 10-16-2023 ambulatory BUBBA TURNER Not Available Start: 10-09-2023 End: 10-09-2023 ambulatory BUBBA TURNER Not Available Start: 10-04-2023 End: 10-04-2023 ambulatory DONG DEPOY Not Available Start: 10-03-2023 End: 10-03-2023 ambulatory DOLORES M MEDVES Not Available Start: 09-27-2023 End: 09-27-2023 ambulatory DONG DEPOY Not Available Start: 09-25-2023 End: 09-25-2023 ambulatory BUBBA TURNER Not Available Start: 09-20-2023 End: 09-20-2023 ambulatory DONG MONTOYA Not Available Start: 09-18-2023 End: 09-18-2023 ambulatory BUBBA TURNER Not Available Start: 09-11-2023 End: 09-11-2023 ambulatory DOLORES TREVIZO Not Available Start: 09-11-2023 End: 09-11-2023 ambulatory MELVA GRIMALDO Not Available Start: 09-07-2023 End: 09-07-2023 ambulatory BUBBA SMITHHN Not Available Start: 09-04-2023 End: 09-04-2023 ambulatory BUBBA TURNER Not Available Start: 05-16-2023 End: 05-17-2023 Admission to same day surgery center Melva Grimaldo [facility] Start: 05-16-2023 End: 05-17-2023 ambulatory Zahrajayce IBARRALOVE Facility:[facility] Start: 03-26-2023 End: 03-26-2023 Patient encounter procedure Mara BEVERLY [facility] Start: 03-23-2023 End: 03-23-2023 Encounter for general adult medical examination with abnormal findings Mara BEVERLY [facility] Start: 03-23-2023 End: 03-23-2023 Patient encounter procedure Mara BEVERLY [facility] Start: 01-19-2023 End: 01-19-2023 Patient encounter procedure Robyn Hernandez [facility] Start: 08-29-2022 End: 08-29-2022 Encounter for general adult medical examination with abnormal findings Mara BEVERLY [facility] [place] Start: 08-29-2022 End: 08-29-2022 Patient encounter procedure Mara BEVERLY [facility] [place] Start: 08-22-2022 End: 08-22-2022 Patient encounter procedure Nathaly TURCIOS [facility] Start: 08-12-2022 End: 08-12-2022 Patient encounter procedure Kim Durga TAMEZ [facility] Start: 08-02-2022 End: 08-03-2022 [facility] Facility: Start: 07-20-2022 End: 07-20-2022 Patient encounter procedure Nathaly TURCIOS [facility] Start: 06-28-2022 End: 06-28-2022 Patient encounter procedure Nathaly TURCIOS [facility] Start: 05-18-2022 End: 05-18-2022 Patient encounter procedure Dolores Gray [facility] Start: 04-25-2022 End: 04-25-2022 Patient encounter procedure Mara BEVERLY [facility] Start: 03-14-2022 End: 03-14-2022 Patient encounter procedure Mara BEVERLY [facility] Start: 09-19-2021 End: 02-06-2022 Recurring SALOME EDMONDS [facility] Start: 12-23-2020 End: 12-23-2020 Orders Only Shaylee Atkinsongregsavannah Work Phone: [facility] Start: 08-13-2020 End: 08-14-2020 Patient encounter procedure CARLOS CARTER [facility] Amb[facility] Start: 07-15-2020 End: 07-15-2020 Patient encounter procedure CARLOS CARTER [facility] Ambulatory Start: 07-15-2020 End: 07-15-2020 Subsequent hospital visit by physician Senait Ochoa Work Phone: [facility] Interventional Radiology Comment on above: Charcot's joint of l eft foot; Charcot's joint of left foot Start: 07-13-2020 End: 07-17-2020 Patient encounter procedure CARLOS CARTER [facility] Start: 07-13-2020 End: 07-18-2020 Office outpatient new 45 minutes Carlos Carter Work Phone: [facility] Comment on above: Charcot's joint of l eft foot (Primary Dx); Neuropathy, idiopathic; Pain Start: 06-14-2020 End: 06-14-2020 Patient encounter procedure CARLOS CARTER [facility] Start: 06-14-2020 End: 06-14-2020 Office outpatient visit 15 minutes Carlos Carter Work Phone: [facility]opedic [facility] Sports Medicine Comment on above: Charcot's joint of l eft foot (Primary Dx); Neuropathy, idiopathic Start: 06-02-2020 End: 06-02-2020 Patient encounter procedure JAVIER RANDI PRYKHODKO [facility] Start: 06-02-2020 End: 06-02-2020 Office outpatient visit 25 minutes Javier Lakeh Prykhodko Work Phone: [facility] Comment on above: History functional e ndoscopic sinus surgery (FESS) with revision (Primary Dx); Sinus pressure; Chronic allergic rhinitis; Fatigue, unspecified type Start: 04-20-2020 End: 04-20-2020 Patient encounter procedure JASPREET CONTI [facility] Start: 04-20-2020 End: 04-20-2020 Office outpatient visit 15 minutes Jaspreet Diaz Mayte Work Phone: [facility] Comment on above: Recurrent sinusitis (Primary Dx); Chronic rhinitis Start: 2020 End: 2020 Patient encounter procedure MARA BEVERLY [facility] Ambulatory Start: 2020 End: 2020 Office outpatient new 30 minutes Mara Beverly Work Phone: [facility] Comment on above: Chronic rhinitis (Pr imary Dx); Acute recurrent frontal sinusitis; Fatigue, unspecified type Start: 2020 End: 03-10-2020 Patient encounter procedure CARLOS CARTER [facility] Start: 2020 End: 2020 Subsequent hospital visit by physician Carlos Carter Work Phone: [facility] Comment on above: Pain Start: 2020 End: 2020 Office outpatient visit 15 minutes Carlos Carter Work Phone: [facility] Comment on above: Charcot's joint of l eft foot (Primary Dx); Neuropathy, idiopathic Start: 01-13-2020 Patient encounter procedure JAVIER BRYAN PRYKHODKO [facility] Ambulatory Start: 09-04-2019 End: 09-05-2019 Patient encounter procedure CARLOS ZABRINAJohn CARTER [facility] Ambulatory Start: 09-04-2019 End: 09-04-2019 Subsequent hospital visit by physician Carlos Carter Work Phone: [facility] Comment on above: Charcot's joint of l eft foot Start: 09-04-2019 End: 09-04-2019 Office outpatient visit 15 minutes Carlos Carter Work Phone: [facility] Comment on above: Charcot's joint of l eft foot (Primary Dx); Neuropathy, idiopathic Start: 03-12-2019 End: 03-12-2019 Patient encounter procedure Carlosarabella Foremane Emma Work Phone: [facility] Comment on above: Pain Start: 03-12-2019 End: 03-12-2019 Office outpatient visit 15 minutes Carlos Carter Work Phone: [facility] Comment on above: Charcot's joint of l eft foot (Primary Dx) Start: 02-06-2019 End: 02-07-2019 Patient encounter procedure PROVIDER NOT IN [facility] Start: 02-06-2019 End: 02-06-2019 Patient encounter procedure Provider Not In [facility] Radiology External Films Comment on above: Arrived Start: 02-05-2019 End: 02-05-2019 Subsequent hospital visit by physician Carlos Carter Work Phone: [facility] Comment on above: Pain Start: 02-05-2019 End: 02-05-2019 Office outpatient new 30 minutes Carlos Carter Work Phone: [facility] Comment on above: Charcot's joint of l eft foot (Primary Dx); Neuropathy, idiopathic Procedures Date Procedure Procedure Detail Performing Clinician Start: 07-29-2024 End: 07-29-2024 [facility] medical xm&eval compre new pt 1/> vst Type 2 diabetes mellitus without complication, without long-term current use of insulin ([facility]) Haily Shepard MD Work Phone: Comment on above: Type 2 diabetes anisa itus without complication, without long- term current use of insulin ([facility]) (Primary Dx); Pseudophakia Start: 05-16-2023 Total knee replacement Melva Grimaldo Start: 04-02-2023 Arthroplasty of knee Mi chanel Grimaldo Start: 08-18-2021 Colonoscopy SALOME BLACKBURN I Start: 01-10-2021 Structure of left fo ot (body structure) SALOME EDMONDS Comment on above: reconstruction surge ry of left foot per dr johnson @ [facility]. Start: 08-18-2020 Radiofrequency dener vation of spinal facet joint of lumbar vertebra SALOME EDMONDS Comment on above: bilat L3-L5 RFA- 60% relief Start: 07-21-2020 Injection of facet j oint using fluoroscopic guidance AMVICENTA EDMONDS Comment on above: B/L L3-L4 MBB 50% re lief for 8-10 hours Start: 07-07-2020 Injection of facet j oint using fluoroscopic guidance AMVICENTA GREY Comment on above: L3-L5 80% relief Start: 07-05-2020 Cataract extraction and insertion of intraocular lens AMVICENTA EDMONDS Start: 03-10-2020 Injection of sacroil iac joint using fluoroscopic guidance AMVICENTA EDMONDS Comment on above: Bilateral SIJI-70% r elief Start: 2020 End: 2020 X-ray of right foot Carlos Carter Work Phone: Start: 2020 Radiologic examinati on ankle 2 views Carlos Carter Work Phone: Start: 12-02-2019 Injection of sacroil iac joint using fluoroscopic guidance AMVICENTA GREY Comment on above: bilat SIJI- 50% reli ef Start: 09-04-2019 X-ray of left foot RashadKassandra Carter Work Phone: Start: 08-27-2019 Sacroiliac joint injection 7 AMAR GREY Comment on above: B/L 80% relief. Start: 05-28-2019 Injection of sacroil iac joint using fluoroscopic guidance AMVICENTA EDMONDS Comment on above: B/L 75% relief Start: 03-12-2019 X-ray of left foot Rashadgeeta Gerber Exten Work Phone: Start: 02-06-2019 Radiographic imaging procedure External Transcribed Start: 02-06-2019 Magnetic resonance imaging External Transcribed Start: 02-05-2019 Injection of sacroil iac joint using fluoroscopic guidance AMVICENTA EDMONDS Comment on above: 90% relief since pro cedure. Start: 11-13-2018 Left Transforaminal Epidural Steroid Injection 10 SALOME EDMONDS Comment on above: left L5+S1 approx 50 % relief X 2 weeks Start: 09-25-2018 Epidural injection o f lumbar spine using fluoroscopic guidance SALOME EDMONDS Comment on above: L3-L4 -25% relief si nce injection x 2 weeks Start: 07-17-2018 Transforaminal Epidu ral Steroid Injection 12 AMAR GREY Comment on above: Left -70% relief x o ne month. Pt. reports 40% relief today. Start: 06-12-2018 epidural steroid injection 13 AMAR GREY Comment on above: L5-S1 60% relief for 3 weeks Start: 04-10-2018 transforaminal epidu ral steroid injection 14 AMVICENTA EDMONDS Comment on above: left L5+S1 80% relie f to present Start: 04-01-2018 Cataract extraction and insertion of intraocular lens SALOME EDMONDS Comment on above: right eye Start: 04-18-2017 transforaminal stero id injection 16 AMAR GREY Comment on above: L5-S1 left side 80% relief for 1 month. Start: 07-11-2016 EVLT LGSV AMVICENTA KILPATRICKT I Start: 03-29-2016 ABHINAV lumbosacral 17 AMAR GREY Comment on above: L5-S1 80% relief Start: 12-22-2015 transforaminal stero id injection 18 AMAR GREY Comment on above: Lt L5-S1- 80% relief for 6 weeks Start: 09-15-2015 transforaminal stero id injection 19 AMAR GREY Comment on above: Lt L5-S1-80% relief for 6 week Start: 06-30-2015 transforaminal stero id injection 20 AMVICENTA KILPATRICKTI Comment on above: Lt L5-S1-80% relief for 6 weeks Start: 04-30-2015 Transforaminal steri od injection 21, 22 AMVICENTA KILPATRICKTI Comment on above: Left L5 +S1 80% relief for 6 wee ks Start: 02-12-2015 Trasforaminal sterio d injection 23, 24 AMVICENTA KILPATRICKTI Comment on above: Left L5-S1 80% relief for 6 wee ks Start: 11-20-2014 Transforaminal steri od injection 25, 26 AMVICENTA KILPATRICKTI Comment on above: Left L5-S1 80% relief for 6 wee ks Start: 05-22-2014 Transforaminal epidu ral steroid injection 27 AMVICENTA EDMONDS Comment on above: Left L5 + S1 70% rel ief Start: 01-28-2014 Epidural injection o f lumbar spine using fluoroscopic guidance SALOME EDMONDS Comment on above: L5-S1 60% relief Start: 11-19-2013 Epidural injection o f lumbar spine using fluoroscopic guidance SALOME EDMONDS Comment on above: L5-S1 30% relief Start: 09-24-2013 Epidural injection o f lumbar spine using fluoroscopic guidance SALOME EDMONDS Comment on above: L5-S1 65% relief Start: 10-22-2011 scraping of the elbow-right SALOME EDMONDS Start: 10-22-2008 Hysterectomy SALOME BLACKBURN I Start: 10-22-1964 Tonsillectomy SALOME ABDI Congestion of nasal sinus (disorder) SALOME EDMONDS Comment on above: 02/27 Hysterectomy SALOME EDMONDS Comment on above: 2009 sinus surgeries 34 SALOME ABDI Comment on above: x2; 2007, 2011 Swelling of first metatarsophalangeal joint of hallux (disorder) SALOME EDMONDS Comment on above: removal Transforaminal epidu ral steroid injection 35 SALOME EDMONDS Comment on above: L5-S1- 75% relief si nce Plan of Treatment Date Care Activity Detail Author Start: 02-17-2027 Tetanus vaccination Tetanus: Every 1 0yrs [facility] Start: 05-14-2025 End: 05-14-2025 Patient encounter procedure 05/14/2025 9:00 AM EDT Office Visit [facility] [address] [place] [id number] Melva Grimaldo DO [address] [place], [place] [id number] [facility] Start: 07-29-2024 End: 07-29-2024 Patient encounter procedure 07/29/2024 11:15 AM EDT Office Visit [facility] [address] [place] [phone] Haily Shepard MD [address] [place] [address] Arrived [facility] Comment on above: Arrived Start: 06-22-2024 Influenza vaccination Influenza Vacc ine (#1) [facility] Start: 2024 Pneumococcal Vaccine : 65+ Years (1 of 1 - PCV) Pneumococcal Vaccine: 65+ Years (1 of 1 - PCV) [facility] Start: 06-22-2020 Influenza vaccinatio n given [facility] Start: 06-14-2020 End: 06-14-2020 Office Visit 06/14/2020 Office Visit Orthopedic Surgery Exten, Carlos Gerber MD [facility] 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 Construction Equipment Operator, Jaspreet Diaz CNP [address] [place] [address] [phone] [facility] Start: 09-04-2019 End: 09-04-2019 Office Visit 09/04/2019 Office Visit Orthopedic Surgery Exten, Carlos Gerber MD [address] [place] [address] [phone] [facility] Start: 06-22-2019 Influenza vaccinatio n given [facility] Start: 06-22-2018 Influenza vaccinatio n given SEQUENTIAL INFLUENZA VACCINE (#1) [facility] Start: 2009 Administration of he rpes zoster vaccine Zoster Vaccines (1 of 2) [facility] Start: 2009 Screening for malign ant neoplasm of colon [facility] Start: 1999 Screening for malign ant neoplasm of breast Mammogram [facility] Start: 1989 Screening for malign ant neoplasm of cervix [facility] Start: 1980 Screening for malign ant neoplasm of cervix Pap Smear [facility] Start: 1977 Hepatitis C antibody , confirmatory test Hepatitis C Screening [facility] Start: 1975 COVID-19 Vaccine (1 of 2) COVID-19 Vaccine (1 of 2) [facility] Start: 1974 HIV screening HIV Screening [facility] Start: 1971 Adolescent depressio n screening assessment Depression Screening (PHQ9) [facility] Start: 1962 History and physical examination, annual for health maintenance Wellness Visit [facility] Start: 1959 Hepatitis C antibody , confirmatory test HEPATITIS C SCREENING [facility] Start: 1959 Protein mass conc Mammogram [facility] Start: 1959 Screening for malign ant neoplasm of cervix PAP SMEAR [facility] Start: 1959 Screening for malign ant neoplasm of colon [facility] Start: 1960 Screening mammography Mammogram O [facility]Yeal Start: 1960 Tetanus vaccination TETANUS EVERY 10 YR [facility] End: 04-20-[address] Sinus Imaging Routine Recurrent sinusitis 1 Occurrences starting 04/20/2020 until 04/20/2021 [facility] Comment on above: 1 Occurrences starti ng 04/20/2020 until 04/20/2021 End: 07-13-2020 Epidural steroid injection VR Epidural Steroid Inj Imaging Routine Charcot's joint of left foot Once for 1 Occurrences starting 07/13/2020 until 07/13/2020 [facility] Comment on above: Once for 1 Occurrenc es starting 07/13/2020 until 07/13/2020 Epidural steroid injection VR Epidural Steroid Inj Imaging Routine Charcot's joint of left foot 07/15/2020 1:42 PM EDT [facility] End: 02-05-2019 X-ray of left foot XR Foot Left 3+ Views (Standard) Routine Pain Once for 1 Occurrences starting 02/05/2019 until 02/05/2019 [facility] Comment on above: Once for 1 Occurrenc es starting 02/05/2019 until 02/05/2019 X-ray of left foot XR Foot Left 3+ Views (Standard) Routine Pain 02/05/2019 2:30 PM EDT [facility] End: 02-05-2019 XR Ankle Left 2 Views XR Ankle Left 2 Views Routine Pain Once for 1 Occurrences starting 02/05/2019 until 02/05/2019 [facility] Comment on above: Once for 1 Occurrenc es starting 02/05/2019 until 02/05/2019 XR Ankle Left 2 Views XR Ankle L eft 2 Views Routine Pain 02/05/2019 2:24 PM EDT [facility] Immunizations Immunization Date Immunization Notes Care Provider Fa marcus 10-06-2023 influenza virus vaccine, unspecified formulation Mara BEVERLY [facility] [place] 09-21-2023 influenza virus vaccine, unspecified formulation Mara BEVERLY [facility] 06-28-2023 zoster vaccine recombinant Mara BEVERLY [facility] 03-27-2023 zoster vaccine recombinant Albinohugh BEVERLY [facility] 09-18-2022 COVID-19, mRNA, LNP-S, bivalent, PF, 50 mcg/0.5 mL dose Robyn Hernandez [facility] 09-18-2022 influenza, injectable, quadrivalent, preservative free Robyn Hernandez [facility] 09-20-2021 COVID-19, mRNA, LNP-S, PF, 100 mcg or 50 mcg dose SALOME EDMONDS [facility] 08-19-2021 influenza virus vaccine, unspecified formulation; Translations: [Fluzone PF Quadrivalent ] SALOME EDMONDS [facility] Comment on above: Reason for Medicatio n: Prophylaxis 01-21-2021 COVID-19, mRNA, LNP-S, PF, 30 mcg/0.3 mL dose; Translations: [Pfizer-BioNTech COVID-19 Vaccine] SALOME EDMONDS [facility] Comment on above: Reason for Medicatio n: Prophylaxis 12-24-2020 COVID-19, mRNA, LNP-S, PF, 30 mcg/0.3 mL dose; Translations: [Pfizer-BioNTech COVID-19 Vaccine] SALOME EDMONDS [facility] Comment on above: Reason for Medicatio n: Prophylaxis 08-30-2020 influenza virus vaccine, unspecified formulation SALOME EDMONDS [facility] 08-04-2020 influenza virus vaccine, unspecified formulation Kim TAMEZ [facility] 09-01-2019 influenza virus vaccine, live, attenuated, for intranasal use SALOME EDMONDS [facility] 09-02-2018 influenza virus vaccine, unspecified formulation SALOME EDMONDS [facility] 02-17-2017 tetanus toxoid, reduced diphtheria toxoid, and acellular pertussis vaccine, adsorbed; Translations: [Adacel (Tdap)] SALOME EDMONDS [facility] NEGATED: Highlighted row has not occurred!08-20-2020 influenza virus vaccine, unspecified formulation SALOME EDMONDS [facility] Payers Date Payer Category Payer Unknown [id number] [id number] 2023-Present [address] [place] [address] [id number] 2023 Medicare [id number] 2019 Unknown [employer] S UPERMED PPO xxxxxxxxxxxx 2019-Present xxxxxxxxxxxx [id number] [id number] 2019 Unknown MMO [employer] S UPERMED PPO [id number] 2019-Present [id number] .[id number] 2019 Unknown [id number] 2008 Unknown xxxxxxxxxx [id number].3 .[id number] 2008 Unknown [id number] 1960 Self-pay [id number] 1959 Unknown [id number] 2.16.840.1.046190.3.579.2.900 1959 Unknown [id number] 2.16.840.1.214254.3.579.2.900 1959 Unknown [id number] 2.16.840.1.937500.3.579.2. 1959 Unknown [id number] 2.16.840.1.705198.3.579.2. 1959 Unknown [id number] 2.16.840.1.687058.3.579.2. 1959 Unknown [id number] 2.16.840.1.527865.3.579.2. 1959 Unknown [id number] 2.16.840.1.061903.3.579.2 1959 Unknown [id number] 2.16.840.1.016635.3.579.2 1959 Unknown [id number] 2.16.840.1.826065.3.579.2 1959 Unknown [id number] 2.16.840.1.122285.3.579.2 1959 Unknown [id number] 2.16.840.1.335240.3.579.2 1959 Unknown [id number] 2.16.840.1.604200.3.579.2. 1959 Unknown [id number] 2.16.840.1.414087.3.579.2. 1959 Unknown [id number] 2.16.840.1.201688.3.579.2 1959 Unknown [id number] 2.16.840.1.735472.3.579.2 1959 Unknown [id number] 2.16.840.1.958506.3.579.2. 1959 Unknown [id number] 2.16.840.1.458161.3.579.2 1959 Unknown [id number] 2.16.840.1.947561.3.579.2.903 1959 Unknown [id number] 2.16.840.1.199277.3.579.2.593 1959 Unknown [id number] 2.16.840.1.860019.3.579.2.72 1959 Unknown [id number] 2.16.840.1.611704.3.579.2.72 1959 Unknown [id number] 2.16.840.1.777378.3.579.2.72 1959 Unknown [id number] 2.16.840.1.714561.3.579.2. 1959 Unknown [id number] 2.16.840.1.570123.3.579.2.72 1959 Unknown [id number] 2.16.840.1.966193.3.579.2. 1959 Unknown [id number] 2.16.840.1.063985.3.579.2 1959 Unknown [id number] 2.16.840.1.632689.3.579.2. 1959 Unknown [id number] 2.16.840.1.901527.3.579.2.72 1959 Unknown [id number] 2.16.840.1.488270.3.579.2. 1959 Unknown [id number] 2.16.840.1.681933.3.579.2. 1959 Unknown [id number] 2.16.840.1.277260.3.579.2. 1959 Unknown [id number] 2.16.840.1.939538.3.579.2. 1959 Unknown [id number] 2.16.840.1.716670.3.579.2.125 1959 Unknown [id number] 2.16.840.1.828012.3.579.2.125 1959 Unknown [id number] 2.16.840.1.248365.3.579.2.125 1959 Unknown [id number] 2.16.840.1.595613.3.579.2.125 1959 Unknown [id number] 2.16.840.1.824101.3.579.2.125 1959 Unknown [id number] 2.16.840.1.572756.3.579.2.125 1959 Unknown [id number] 2.16.840.1.669856.3.579.2.125 1959 Unknown [id number] 2.16.840.1.673989.3.579.2.125 1959 Unknown [id number] 2.16.840.1.822751.3.579.2.125 1959 Unknown [id number] 2.16.840.1.218778.3.579.2.125 1959 Unknown [id number] 2.16.840.1.999530.3.579.2.125 1959 Unknown [id number] 2.16.840.1.090002.3.579.2.125 1959 Unknown [id number] 2.16.840.1.407677.3.579.2.125 1959 Unknown [id number] 2.16.840.1.846253.3.579.2.125 1959 Unknown [id number] 2.16.840.1.364693.3.579.2.125 1959 Unknown [id number] 2.16.840.1.100436.3.579.2.125 1959 Unknown [id number] 2.16.840.1.294449.3.579.2.125 9 1959 Unknown [id number] 2.16.840.1.102966.3.579.2.125 9 1959 Unknown [id number] 2.16.840.1.522628.3.579.2.125 9 1959 Unknown [id number] 2.16.840.1.613603.3.579.2.125 9 1959 Unknown [id number] 2.16.840.1.401270.3.579.2.727 1959 Unknown [id number] 2.16.840.1.560451.3.579.2.727 1959 Unknown [id number] 2.16.840.1.964627.3.579.2.727 Unknown [id number] Social History Date Type Detail Facility Start: 02-05-2019 End: 04-06-2023 Tobacco smoking status KYIS Never smoker [facility] Start: 02-05-2019 History SDOH Alcohol Frequency 1 [facility] Sex Assigned At Not on file [facility] Start: 2020 End: 04-20-2020 Alcohol intake Lifetime non-drinker (finding) [facility] Exposure to SARS-CoV -2 (event) Not sure [facility] Start: 06-14-2020 End: 04-06-2023 Tobacco use and exposure Never used [facility] Tobacco smoking status Never [facility] Start: 07-10-2024 Sex Assigned At Female [facility] Start: 07-10-2024 End: 07-29-2024 Alcoholic beverage intake Ex-drinker (finding) [facility] Start: 07-10-2024 History of Social function [facility] Start: 06-12-2023 Alcohol Comment Haven't drank measureable amount since I was in [birth year] [facility] Start: 1960 Sex assigned at Female [facility] Start: 03-11-2023 Gender identity Identifies as female gender (finding) [facility] Start: 03-11-2023 Sexual orientation Heterosexual (finding) [facility] Medical Equipment Procedure Code Equipment Code Equipment Origin al Text Equipment Identifier Dates {[id number] FDA Start: 07-05-2020 KNEE TOTAL ARTHROPLASTY Melva Grimaldo DO 04/02/23 Non Biological Knee L {[id number]{ [id number] FDA Start: 04-02-2023 KNEE TOTAL ARTHROPLASTY REVISION Melva Grimaldo DO 05/16/23 Biological Knee L {[id number]{ [id number]{[id number] {[id number]{[id number]{21} [id number] FDA Start: 05-16-2023 Goals Date Patient Goal Desired Activity /State Personal health goal Functional Status Date Assessment Result Facility 05-12-2024 Functional Status N/A [facility] 04-08-2024 Functional Status N/A [facility] 03-24-2024 Functional Status N/A [facility] 03-21-2024 Functional Status N/A [facility] 03-10-2024 Functional Status N/A [facility] 12-10-2023 Functional Status N/A [facility] 10-17-2023 Functional Status N/A [facility] 05-16-2023 Functional Status N/A [facility] 05-15-2023 Functional Status No [facility] 03-23-2023 Functional Status N/A [facility] 01-19-2023 Functional Status N/A [facility] 08-22-2022 Functional Status N/A [facility] 08-12-2022 Functional Status N/A [facility] 06-28-2022 Functional Status N/A [facility] 05-18-2022 Functional Status N/A [facility] 04-25-2022 Functional Status N/A [facility] Clinical Notes 03-13-2022 to 07-29-2024 Haily Shepard MD - 07/29/2024 11:15 AM EDT Note Date & Type Note Facility 07-29-2024 History of Present illness Narrative Assessment/Plan Diabetes Mellitus without sign of diabetic retinopathy on dilated retinal examination today OU: Discussed the pathophysiology of diabetes and its effect on the eye. Stressed the importance of strong glucose control. Advised of importance of at least yearly dilated examinations, but to contact us immediately for any problems or concerns. documented in this encounter [facility] 05-10-2024 Hospital Discharge instructions Patient Education 05/10/2024 15:47:00 Diabetes Mellitus and Exercise Diabetes Mellitus and Exercise Exercising regularly is important for overall health, especially for people who have diabetes mellitus. Exercising is not only about losing weight. It has many other health benefits, such as increasing muscle strength and bone density and reducing body fat and stress. This leads to improved fitness, flexibility, and endurance, all of which result in better overall health. What are the benefits of exercise if I have diabetes? Exercise has many benefits for people with diabetes. They include: Helping to lower and control blood sugar (glucose). Helping the body to respond better to the hormone insulin by improving insulin sensitivity. Reducing how much insulin the body needs. Lowering the risk for heart disease by: ?Lowering bad cholesterol and triglyceride levels. ?Increasing good cholesterol levels. ?Lowering blood pressure. ?Lowering blood glucose levels. What is my activity plan? Your health care provider or certified fraud examiner can help you make a plan for the type and frequency of exercise that works for you. This is called your activity plan. Be sure to: Get at least 150 minutes of medium-intensity or high-intensity exercise each week. Exercises may include brisk walking, biking, or water aerobics. Do stretching and strengthening exercises, such as yoga or weight lifting, at least 2 times a week. Spread out your activity over at least 3 days of the week. Get some form of physical activity each day. ?Do not go more than 2 days in a row without some kind of physical activity. ?Avoid being inactive for more than 90 minutes at a time. Take frequent breaks to walk or stretch. Choose exercises or activities that you enjoy. Set realistic goals. Start slowly and gradually increase your exercise intensity over time. How do I manage my diabetes during exercise? Monitor your blood glucose Check your blood glucose before and after exercising. If your blood glucose is: ?240 mg/dL (13.3 mmol/L) or higher before you exercise, check your urine for ketones. These are chemicals created by the liver. If you have ketones in your urine, do not exercise until your blood glucose returns to normal. ?100 mg/dL (5.6 mmol/L) or lower, eat a snack containing 15 20 grams of carbohydrate. Check your blood glucose 15 minutes after the snack to make sure that your glucose level is above 100 mg/dL (5.6 mmol/L) before you start your exercise. Know the symptoms of low blood glucose (hypoglycemia) and how to treat it. Your risk for hypoglycemia increases during and after exercise. Follow these tips and your health care provider's instructions Keep a carbohydrate snack that is fast-acting for use before, during, and after exercise to help prevent or treat hypoglycemia. Avoid injecting insulin into areas of the body that are going to be exercised. For example, avoid injecting insulin into: ?Your arms, when you are about to play tennis. ?Your legs, when you are about to go jogging. Keep records of your exercise habits. Doing this can help you and your health care provider adjust your diabetes management plan as needed. Write down: ?Food that you eat before and after you exercise. ?Blood glucose levels before and after you exercise. ?The type and amount of exercise you have done. Work with your health care provider when you start a new exercise or activity. He or she may need to: ?Make sure that the activity is safe for you. ?Adjust your insulin, other medicines, and food that you eat. Drink plenty of water while you exercise. This prevents loss of water (dehydration) and problems caused by a lot of heat in the body (heat stroke). Where to find more information [place] [employer]: www.diabetes.org Summary Exercising regularly is important for overall health, especially for people who have diabetes mellitus. Exercising has many health benefits. It increases muscle strength and bone density and reduces body fat and stress. It also lowers and controls blood glucose. Your health care provider or certified fraud examiner can help you make an activity plan for the type and frequency of exercise that works for you. Work with your health care provider to make sure any new activity is safe for you. Also work with your health care provider to adjust your insulin, other medicines, and the food you eat. This information is not intended to replace advice given to you by your health care provider. Make sure you discuss any questions you have with your health care provider. Document Revised: 07/05/2020 Document Reviewed: 07/05/2020 [employer] Patient Education 2022 [place]. Follow Up Care 12/10/2023 19:22:31 With:Mara BEVERLY MD, FAM Address: When:Within 3 Month(s) Comments:plan A1C at visit, please set up bacxk to back with medicare exam same date thanks [facility] 05-10-2024 Note Patient Education Endocrinology Diabetes Mellitus and Exercise Exercising regularly is important for overall health, especially for people who have diabetes mellitus. Exercising is not only about losing weight. It has many other health benefits, such as increasing muscle strength and bone density and reducing body fat and stress. This leads to improved fitness, flexibility, and endurance, all of which result in better overall health. What are the benefits of exercise if I have diabetes? Exercise has many benefits for people with diabetes. They include: ? Helping to lower and control blood sugar (glucose). ? Helping the body to respond better to the hormone insulin by improving insulin sensitivity. ? Reducing how much insulin the body needs. ? Lowering the risk for heart disease by: ? Lowering bad cholesterol and triglyceride levels. ? Increasing good cholesterol levels. ? Lowering blood pressure. ? Lowering blood glucose levels. What is my activity plan? Your health care provider or certified fraud examiner can help you make a plan for the type and frequency of exercise that works for you. This is called your activity plan. Be sure to: ? Get at least 150 minutes of medium-intensity or high-intensity exercise each week. Exercises may include brisk walking, biking, or water aerobics. ? Do stretching and strengthening exercises, such as yoga or weight lifting, at least 2 times a week. ? Spread out your activity over at least 3 days of the week. ? Get some form of physical activity each day. ? Do not go more than 2 days in a row without some kind of physical activity. ? Avoid being inactive for more than 90 minutes at a time. Take frequent breaks to walk or stretch. ? Choose exercises or activities that you enjoy. Set realistic goals. ? Start slowly and gradually increase your exercise intensity over time. How do I manage my diabetes during exercise? Monitor your blood glucose ? Check your blood glucose before and after exercising. If your blood glucose is: ? 240 mg/dL (13.3 mmol/L) or higher before you exercise, check your urine for ketones. These are chemicals created by the liver. If you have ketones in your urine, do not exercise until your blood glucose returns to normal. ? 100 mg/dL (5.6 mmol/L) or lower, eat a snack containing 15?20 grams of carbohydrate. Check your blood glucose 15 minutes after the snack to make sure that your glucose level is above 100 mg/dL (5.6 mmol/L) before you start your exercise. ? Know the symptoms of low blood glucose (hypoglycemia) and how to treat it. Your risk for hypoglycemia increases during and after exercise. Follow these tips and your health care provider's instructions ? Keep a carbohydrate snack that is fast-acting for use before, during, and after exercise to help prevent or treat hypoglycemia. ? Avoid injecting insulin into areas of the body that are going to be exercised. For example, avoid injecting insulin into: ? Your arms, when you are about to play tennis. ? Your legs, when you are about to go jogging. ? Keep records of your exercise habits. Doing this can help you and your health care provider adjust your diabetes management plan as needed. Write down: ? Food that you eat before and after you exercise. ? Blood glucose levels before and after you exercise. ? The type and amount of exercise you have done. ? Work with your health care provider when you start a new exercise or activity. He or she may need to: ? Make sure that the activity is safe for you. ? Adjust your insulin, other medicines, and food that you eat. ? Drink plenty of water while you exercise. This prevents loss of water (dehydration) and problems caused by a lot of heat in the body (heat stroke). Where to find more information ? [place] [employer]: www.diabetes.org Summary ? Exercising regularly is important for overall health, especially for people who have diabetes mellitus. ? Exercising has many health benefits. It increases muscle strength and bone density and reduces body fat and stress. It also lowers and controls blood glucose. ? Your health care provider or certified fraud examiner can help you make an activity plan for the type and frequency of exercise that works for you. ? Work with your health care provider to make sure any new activity is safe for you. Also work with your health care provider to adjust your insulin, other medicines, and the food you eat. This information is not intended to replace advice given to you by your health care provider. Make sure you discuss any questions you have with your health care provider. Document Revised: 07/05/2020 Document Reviewed: 07/05/2020 [employer] Patient Education ? 2022 [place]. [facility] 04-08-2024 Hospital Discharge instructions Patient Education 04/08/2024 15:40:11 BMI for Adults BMI for Adults What is BMI? Body mass index (BMI) is a number that is calculated from a person's weight and height. BMI can help estimate how much of a person's weight is composed of fat. BMI does not measure body fat directly. Rather, it is an alternative to procedures that directly measure body fat, which can be difficult and expensive. BMI can help identify people who may be at higher risk for certain medical problems. What are BMI measurements used for? BMI is used as a screening tool to identify possible weight problems. It helps determine whether a person is obese, overweight, a healthy weight, or underweight. BMI is useful for: Identifying a weight problem that may be related to a medical condition or may increase the risk for medical problems. Promoting changes, such as changes in diet and exercise, to help reach a healthy weight. BMI screening can be repeated to see if these changes are working. How is BMI calculated? BMI involves measuring your weight in relation to your height. Both height and weight are measured, and the BMI is calculated from those numbers. This can be done either in [place] or metric measurements. Note that charts and online BMI calculators are available to help you find your BMI quickly and easily without having to do these calculations yourself. To calculate your BMI in [place] measurements: 1.Measure your weight in pounds (lb). 2.Multiply the number of pounds by 703. For example, for a person who weighs 180 lb, multiply that number by 703, which equals 126,540. 3.Measure your height in inches. Then multiply that number by itself to get a measurement called inches squared. For example, for a person who is 70 inches tall, the inches squared measurement is 70 inches x 70 inches, which equals 4,900 inches squared. 4.Divide the total from step 2 (number of lb x 703) by the total from step 3 (inches squared): 126,540 4,900 = 25.8. This is your BMI. To calculate your BMI in metric measurements: 1.Measure your weight in kilograms (kg). 2.Measure your height in meters (m). Then multiply that number by itself to get a measurement called meters squared. For example, for a person who is 1.75 m tall, the meters squared measurement is 1.75 m x 1.75 m, which is equal to 3.1 meters squared. 3.Divide the number of kilograms (your weight) by the meters squared number. In this example: 70 3.1 = 22.6. This is your BMI. What do the results mean? BMI charts are used to identify whether you are underweight, normal weight, overweight, or obese. The following guidelines will be used: Underweight: BMI less than 18.5. Normal weight: BMI between 18.5 and 24.9. Overweight: BMI between 25 and 29.9. Obese: BMI of 30 or above. Keep these notes in mind: Weight includes both fat and muscle, so someone with a muscular build, such as an athlete, may have a BMI that is higher than 24.9. In cases like these, BMI is not an accurate measure of body fat. To determine if excess body fat is the cause of a BMI of 25 or higher, further assessments may need to be done by a health care provider. BMI is usually interpreted in the same way for men and women. Where to find more information For more information about BMI, including tools to quickly calculate your BMI, go to these websites: Centers for Disease Control and Prevention: www.cdc.gov [place] [employer] Association: www.heart.org National Heart, Lung, and Blood [place]: www.nhlbi.nih.gov Summary Body mass index (BMI) is a number that is calculated from a person's weight and height. BMI may help estimate how much of a person's weight is composed of fat. BMI can help identify those who may be at higher risk for certain medical problems. BMI can be measured using [place] measurements or metric measurements. BMI charts are used to identify whether you are underweight, normal weight, overweight, or obese. This information is not intended to replace advice given to you by your health care provider. Make sure you discuss any questions you have with your health care provider. Document Revised: 06/30/2020 Document Reviewed: 05/07/2020 [employer] Patient Education 2022 [place]. 04/08/2024 15:40:09 Bedbugs, Scet-cb-Usam Bedbugs Bedbugs are tiny bugs that live in and around beds. During the day, they stay hidden. At night, they come out and bite. Where are bedbugs found? Bedbugs can be found anywhere. It does not matter if a place is clean or dirty. Bedbugs are found in: Hotels. Shelters. Dorms. Hospitals. Nursing homes. Places where there are many birds or bats. What are bedbug bites like? A bedbug bite makes a small red bump with a darker red dot in the middle. The bump may show soon after you are bitten or one or more days later. Bedbug bites usually do not hurt, but they may itch or cause an allergic reaction. You will need to get medical help if you have an allergic reaction. Most people do not need treatment for bedbug bites. The bumps usually go away on their own in a few days. If you have a lot of bedbug bites and they feel very itchy: Do not scratch the bite areas. You may put one of these on the bite area as told by your doctor: ?Baking soda paste, made by adding water to baking soda. ?Cortisone cream. ?Calamine lotion. How do I check for bedbugs? Adult bedbugs are reddish-brown, oval, and flat. They are very small, and they cannot fly. Young bedbugs are whitish-yellow and are smaller than adult bedbugs. Use a flashlight to look for bedbugs in these places: On mattresses, bed frames, headboards, and box springs. On drapes and curtains in bedrooms. Under the carpet in bedrooms. Behind electrical outlets. Behind any wallpaper that is peeling. Inside luggage. Also, look for black or red spots or stains on or near the bed. What should I do if I find bedbugs? When traveling Look over the room for the presence of bedbugs on items like the mattress, bedding, headboard, and luggage rack. You may want to use a flashlight. Use luggage racks to hold your luggage when packing or unpacking. Do not set luggage on the bed or the floor. Keep luggage away from the bed. Before you go back home, check your clothes, suitcase, and belongings for bedbugs. You may want to throw away anything that has bedbugs on it. When you get home, unpack directly into a washing machine and look at your luggage carefully. Put clothing in the dryer at a high temperature to kill any bedbugs. Generally, washing will not kill bedbugs. Store suitcases away from your bedroom, such as in the basement or garage. Never store suitcases under your bed. At home Your bedroom may need to be treated by a pest control expert. You may also need to throw away mattresses or luggage. To help stop bedbugs from coming back, you may want to: Wash your clothes and bedding in water that is hotter than 120 F (48.9 C). Dry them on a hot setting. Put a plastic cover over your mattress. When you sleep, wear pajamas that have long sleeves and pant legs. Bedbugs usually bite skin that is not covered. Vacuum often around the bed and in all of the cracks where the bugs might hide. Check all used furniture, bedding, or clothes that you bring into your home. Get rid of bird nests and bat roosts that are near your home. Where to find more information [place] Environmental Protection Agency (EPA): epa.gov/bedbugs Contact a doctor if: You have more redness, swelling, or pain at the bite area. You have pus or a bad smell coming from the bite area. The bite area feels warm to the touch. Get help right away if: You have signs of a very bad allergic reaction (anaphylactic reaction). These may include: ?Swelling of your eyes, lips, face, mouth, tongue, or throat. ?Feeling coremaker machine the face. ?Itchy, red, swollen areas of skin. ?Trouble with breathing, talking, or swallowing. ?High-pitched whistling sounds, most often when breathing out. ?Feeling dizzy or light-headed. ?Fainting. These symptoms may be an emergency. Do not wait to see if the symptoms will go away. Get help right away. Call 911. Summary Bedbugs are tiny bugs that live in and around beds. Bedbugs are often found in hotels, shelters, dorms, hospitals, and nursing homes. A bedbug bite makes a small red bump with a darker red dot in the middle. Bedbug bites usually do not hurt, but they may itch or cause an allergic reaction. You will need to get medical help if you have an allergic reaction. If you find bedbugs at home, your bedroom may need to be treated by a pest control expert. This information is not intended to replace advice given to you by your health care provider. Make sure you discuss any questions you have with your health care provider. Document Revised: 12/26/2022 Document Reviewed: 12/21/2022 [employer] Patient Education 2022 [place]. Follow Up Care 04/08/2024 11:55:11 With:Mara BEVERLY MD, FAM Address: [address] [place] [id number]- When: Unknown [facility] 03-25-2024 Hospital Discharge instructions Patient Education 03/25/2024 00:56:06 Asthma, Adult Asthma, Adult Asthma is a long-term (chronic) condition that causes recurrent episodes in which the lower airways in the lungs become tight and narrow. The narrowing is caused by inflammation and tightening of the smooth muscle around the lower airways. Asthma episodes, also called asthma attacks or asthma flares, may cause coughing, making high-pitched whistling sounds when you breathe, most often when you breathe out (wheezing), shortness of breath, and chest pain. The airways may produce extra mucus caused by the inflammation and irritation. During an attack, it can be difficult to breathe. Asthma attacks can range from minor to life-threatening. Asthma cannot be cured, but medicines and lifestyle changes can help control it and treat acute attacks. It is important to keep your asthma well controlled so the condition does not interfere with your daily life. What are the causes? This condition is believed to be caused by inherited (genetic) and environmental factors, but its exact cause is not known. What can trigger an asthma attack? Many things can bring on an asthma attack or make symptoms worse. These triggers are different for every person. Common triggers include: Allergens and irritants like mold, dust, pet dander, cockroaches, pollen, air pollution, and chemical odors. Cigarette smoke. Weather changes and cold air. Stress and strong emotional responses such as crying or laughing hard. Certain medications such as aspirin or beta blockers. Infections and inflammatory conditions, such as the flu, a cold, pneumonia, or inflammation of the nasal membranes (rhinitis). Gastroesophageal reflux disease (GERD). What are the signs or symptoms? Symptoms may occur right after exposure to an asthma trigger or hours later and can vary by person. Common signs and symptoms include: Wheezing. Trouble breathing (shortness of breath). Excessive nighttime or research group director coughing. Chest tightness. Tiredness (fatigue) with minimal activity. Difficulty talking in complete sentences. Poor exercise tolerance. How is this diagnosed? This condition is diagnosed based on: A physical exam and your medical history. Tests, which may include: ?Lung function studies to evaluate the flow of air in your lungs. ?Allergy tests. ?Imaging tests, such as X-rays. How is this treated? There is no cure, but symptoms can be controlled with proper treatment. Treatment usually involves: Identifying and avoiding your asthma triggers. Inhaled medicines. Two types are commonly used to treat asthma, depending on severity: ?Controller medicines. These help prevent asthma symptoms from occurring. They are taken every day. ?Fast-acting reliever or rescue medicines. These quickly relieve asthma symptoms. They are used as needed and provide short-term relief. Using other medicines, such as: ?Allergy medicines, such as antihistamines, if your asthma attacks are triggered by allergens. ?Immune medicines (immunomodulators). These are medicines that help control the immune system. Using supplemental oxygen. This is only needed during a severe episode. Creating an asthma action plan. An asthma action plan is a written plan for managing and treating your asthma attacks. This plan includes: ?A list of your asthma triggers and how to avoid them. ?Information about when medicines should be taken and when their dosage should be changed. ?Instructions about using a device called a peak flow meter. A peak flow meter measures how well the lungs are working and the severity of your asthma. It helps you monitor your condition. Follow these instructions at home: Take atin-ixr-dmsrsno and prescription medicines only as told by your health care provider. Stay up to date on all vaccinations as recommended by your healthcare provider, including vaccines for the flu and pneumonia. Use a peak flow meter and keep track of your peak flow readings. Understand and use your asthma action plan to address any asthma flares. Do not smoke or allow anyone to smoke in your home. Contact a health care provider if: You have wheezing, shortness of breath, or a cough that is not responding to medicines. Your medicines are causing side effects, such as a rash, itching, swelling, or trouble breathing. You need to use a reliever medicine more than 2 3 times a week. Your peak flow reading is still at 50 79% of your personal best after following your action plan for 1 hour. You have a fever and shortness of breath. Get help right away if: You are getting worse and do not respond to treatment during an asthma attack. You are short of breath when at rest or when doing very little physical activity. You have difficulty eating, drinking, or talking. You have chest pain or tightness. You develop a fast heartbeat or palpitations. You have a bluish color to your lips or fingernails. You are light-headed or dizzy, or you faint. Your peak flow reading is less than 50% of your personal best. You feel too tired to breathe normally. These symptoms may be an emergency. Get help right away. Call 911. Do not wait to see if the symptoms will go away. Do not drive yourself to the hospital. Summary Asthma is a long-term (chronic) condition that causes recurrent episodes in which the airways become tight and narrow. Asthma episodes, also called asthma attacks or asthma flares, can cause coughing, wheezing, shortness of breath, and chest pain. Asthma cannot be cured, but medicines and lifestyle changes can help keep it well controlled and prevent asthma flares. Make sure you understand how to avoid triggers and how and when to use your medicines. Asthma attacks can range from minor to life-threatening. Get help right away if you have an asthma attack and do not respond to treatment with your usual rescue medicines. This information is not intended to replace advice given to you by your health care provider. Make sure you discuss any questions you have with your health care provider. Document Revised: 07/26/2022 Document Reviewed: 07/17/2022 [employer] Patient Education 2022 [place]. Follow Up Care 03/24/2024 22:42:12 With:Mara BEVERLY Address: [address] [place] [address]- Business (1) When:Within 3 Day(s) [facility] 03-24-2024 Evaluation + Plan note Extrac mary from: Title:ED Note Author:Yuniel Ocasio DO Date :03/24/24 Asthma exacerbation (J45.901 : Unspecified asthma with (acute) exacerbation) Orders: albuterol, 2.5 mg, 3 mL, Soln-Inh, NEB, Once, Stop date 03/24/24 23:02:00 EDT, STAT, Start date 03/24/24 23:02:00 EDT albuterol-ipratropium, 3 mL, Soln-Inh, NEB, Once, Stop date 03/24/24 23:02:00 EDT, STAT, Start date 03/24/24 23:02:00 EDT brompheniramine/dextromethorphan/PSE, 5 mL, Oral, QID for cough and congestion, 200 mL, Refill(s) 0, DiscManyeta #37, 177, cm, 03/24/24 22:52:00 EDT, Height/Length Dosing, 128, kg, 03/24/24 22:52:00 EDT, Weight Dosing B-Type Natriuretic Peptide Basic Metabolic Panel CBC w/ Auto Diff ECG 12 Lead Adult ED Cardiac Monitoring eGFR Influenza A&B Ag Oxygen Saturation Oxygen Therapy PT & PTT Rapid COVID Antigen ([facility]) Saline Lock Insert Troponin 0 Hr. Troponin 1 Hr. XR Chest Single View Future Appointments Appointment Date:05/12/2024 06:40:00 PM Scheduled Provider:Mara BEVERLY MD Location:[facility] Appointment Type:EDITH Open Appointment Date:05/21/2024 02:15:00 PM Scheduled Provider:Farzad FRANCE MD Location:[facility] Appointment Type:URO New Patient Future Scheduled Tests Laboratory* TSH With T4fr Reflex 12/08/23 * Vitamin D 25 Hydroxy 12/10/23 * CBC w/ Auto Diff 12/08/23 * Comprehensive Metabolic Panel 12/08/23 * Lipid Panel 12/08/23 Radiology* MA Mamm Screen w/CAD if perf and 3D Kenji 12/08/23 [facility]05-31-2024 Hospital Discharge instructions Patient Education 03/21/2024 13:41:57 Asthma, Adult, Mosv-cg-Triu Asthma, Adult Asthma is a condition that causes swelling and narrowing of the airways. These are the passages that lead from the nose and mouth down into the lungs. When asthma symptoms get worse it is called an asthma attack or flare. This can make it hard to breathe. Asthma flares can range from minor to life-threatening. There is no cure for asthma, but medicines and lifestyle changes can help to control it. What are the causes? It is not known exactly what causes asthma, but certain things can cause asthma symptoms to get worse (triggers). What can trigger an asthma attack? Cigarette smoke. Mold. Dust. Your pet's skin flakes (dander). Cockroaches. Pollen. Air pollution (like household strategy intern, wood smoke, smog, or chemical odors). What are the signs or symptoms? Trouble breathing (shortness of breath). Coughing. Making high-pitched whistling sounds when you breathe, most often when you breathe out (wheezing). Chest tightness. Tiredness with little activity. Poor exercise tolerance. How is this treated? Controller medicines that help prevent asthma symptoms. Fast-acting reliever or rescue medicines. These give short-term relief of asthma symptoms. Allergy medicines if your attacks are brought on by allergens. Medicines to help control the body's defense (immune) system. Staying away from the things that cause asthma attacks. Follow these instructions at home: Avoiding triggers in your home Do not allow anyone to smoke in your home. Limit use of fireplaces and wood stoves. Get rid of pests (such as roaches and mice) and their droppings. Keep your home clean. ?Clean your floors. Dust regularly. Use cleaning products that do not smell. ?Wash bed sheets and blankets every week in hot water. Dry them in a dryer. ?Have someone vacuum when you are not home. ?Change your heating and air conditioning filters often. Use blankets that are made of polyester or cotton. General instructions Take llcr-uzz-biethfg and prescription medicines only as told by your doctor. Do not smoke or use any products that contain nicotine or tobacco. If you need help quitting, ask your doctor. ?Stay away from secondhand smoke. Avoid doing things outdoors when allergen counts are high and when air quality is low. Warm up before you exercise. Take time to cool down after exercise. Use a peak flow meter as told by your doctor. A peak flow meter is a tool that measures how well your lungs are working. ?Keep track of the peak flow meter's readings. Write them down. Follow your asthma action plan. This is a written plan for taking care of your asthma and treating your attacks. Make sure you get all the shots (vaccines) that your doctor recommends. Ask your doctor about a flushot and a pneumonia shot. Keep all follow-up visits. Contact a doctor if: You have wheezing, shortness of breath, or a cough even while taking medicine to prevent attacks. The mucus you cough up (sputum) is thicker than usual. The mucus you cough up changes from clear or white to yellow, green, drake, or is bloody. You have problems from the medicine you are taking, such as: ?A rash. ?Itching. ?Swelling. ?Trouble breathing. You need reliever medicines more than 2 3 times a week. Your peak flow reading is still at 50 79% of your personal best after following the action plan for1 hour. You have a fever. Get help right away if: You seem to be worse and are not responding to medicine during an asthma attack. You are short of breath even at rest. You get short of breath when doing very little activity. You have trouble eating, drinking, or talking. You have chest pain or tightness. You have a fast heartbeat. Your lips or fingernails start to turn blue. You are light-headed or dizzy, or you faint. Your peak flow is less than 50% of your personal best. You feel too tired to breathe normally. These symptoms may be an emergency. Get help right away. Call 911. Do not wait to see if the symptoms will go away. Do not drive yourself to the hospital. Summary Asthma is a long-term (chronic) condition in which the airways get tight and narrow. An asthma attack can make it hard to breathe. Asthma cannot be cured, but medicines and lifestyle changes can help control it. Make sure you understand how to avoid triggers and how and when to use your medicines. Avoid things that can cause allergy symptoms (allergens). These include animal skin flakes (dander)and pollen from trees or grass. Avoid things that pollute the air. These may include household strategy intern, wood smoke, smog, or chemical odors. This information is not intended to replace advice given to you by your health care provider. Make sure you discuss any questions you have with your health care provider. Document Revised: 07/17/2022 Document Reviewed: 07/17/2022 [employer] Patient Education 2022 [place]. Follow Up Care 03/21/2024 11:33:38 With:Mara BEVERLY MD, FAM Address: When: only if needed [facility] [place] 05-20-2024 Hospital Discharge instructions Patient Education 03/10/2024 16:22:43 Asthma Attack Asthma Attack Asthma attack, also called asthma flare or acute bronchospasm, is the sudden narrowing and tightening of the lower airways (bronchi) in the lungs, that can make it hard to breathe. The narrowing is caused by inflammation and tightening of the smooth muscle that wraps around the lower airways in thelungs. Asthma attacks may cause coughing, high-pitched whistling sounds when you breathe, most often when you breathe out (wheezing), trouble breathing (shortness of breath), and chest pain. The airways mayproduce extra mucus caused by the inflammation and irritation. During an asthma attack, it can be difficult to breathe. It is important to get treatment right away. Asthma attacks can range from minor to life-threatening. What are the causes? Possible causes or triggers of this condition include: Household allergens like dust, pet dander, and cockroaches. Mold and pollen from trees or grass. Air pollutants such as household strategy intern, aerosol sprays, strong odors, and smoke of any kind. Weather changes and cold air. Stress or strong emotions such as crying or laughing hard. Exercise or activity that requires a lot of energy. Certain medicines or medical conditions such as: ?Aspirin or beta-blockers. ?Infections or inflammatory conditions, such as a flu (influenza), a cold, pneumonia, or inflammation of the nasal membranes (rhinitis). ?Gastroesophageal reflux disease (GERD). GERD is a condition in which stomach acid backs up into your esophagus and spills into your trachea (windpipe), which can irritate your airways. What are the signs or symptoms? Symptoms of this condition include: Wheezing. Excessive coughing. This may only happen at night. Chest tightness or pain. Shortness of breath. Difficulty talking in complete sentences. Feeling like you cannot get enough air, no matter how hard you breathe (air hunger). How is this diagnosed? This condition may be diagnosed based on: A physical exam and your medical history. Your symptoms. Tests to check for other causes of your symptoms or other conditions that may have triggered your asthma attack. These tests may include: ?A chest X-ray. ?Blood tests. ?Lung function studies (spirometry) to evaluate the flow of air in your lungs. How is this treated? Treatment for this condition depends on the severity and cause of your asthma attack. For mild attacks, you may receive medicines through a hand-held inhaler (metered dose inhaler or MDI) or through a device that turns liquid medicine into a mist (nebulizer). These medicines include: ?Quick relief or rescue medicines that quickly relax the airways and lungs. ?Long-acting medicines that are used daily to prevent (control) your asthma symptoms. For moderate or severe attacks, you may be treated with steroid medicines by mouth or through an IVinjection at the hospital. For severe attacks, you may need oxygen therapy or a breathing machine (ventilator). If your asthma attack was caused by an infection from bacteria, you will be given antibiotic medicines. Follow these instructions at home: Medicines Take kejc-zaw-kcfjvfg and prescription medicines only as told by your health care provider. If you were prescribed an antibiotic medicine, take it as told by your health care provider. Do notstop using the antibiotic even if you start to feel better. Tell your doctor if you are or may be to make sure your asthma medicine is safe to use during . Avoiding triggers Keep track of things that trigger your asthma attacks. Avoid exposure to these triggers. Do not use any products that contain nicotine or tobacco. These products include cigarettes, chewing tobacco, and vaping devices, such as e-cigarettes. If you need help quitting, ask your health careprovider. When there is a lot of pollen, air pollution, or humidity, keep windows closed and use an air conditioner or go to places with air conditioning. Asthma action plan Work with your health care provider to make a written plan for managing and treating your asthma attacks (asthma action plan). This plan should include: ?A list of your asthma triggers and how to avoid them. ?A list of symptoms that you may have during an asthma attack. ?Information about which medicine to take, when to take the medicine, and how much of the medicine to take. ?Information to help you understand your peak flow measurements. ?Daily actions that you can take to control your asthma symptoms. ?Contact information for your health care providers. If you have an asthma attack, act quickly. Follow the emergency steps on your written asthma actionplan. This may prevent you from needing to go to the hospital. Talk to a family member or close friend about your asthma action plan and who to contact in case you need help. General instructions Avoid excessive exercise or activity until your asthma attack goes away. Stay up to date on all your vaccines, such as flu and pneumonia vaccines. Keep all follow-up visits. This is important. Contact a health care provider if: You have followed your action plan for 1 hour and your peak flow reading is still at 50 79% of yourpersonal best. This is in the yellow zone, which means caution. You need to use your quick reliever medicine more frequently than normal. Your medicines are causing side effects, such as rash, itching, swelling, or trouble breathing. Your symptoms do not improve after taking medicine. You have a fever. Get help right away if: Your peak flow reading is less than 50% of your personal best. This is in the red zone, which means danger. You develop chest pain or discomfort. Your medicines no longer seem to be helping. You are coughing up bloody mucus. You have a fever and your symptoms suddenly get worse. You have trouble swallowing. You feel very tired, and breathing becomes tiring. These symptoms may be an emergency. Get help right away. Call 911. Do not wait to see if the symptoms will go away. Do not drive yourself to the hospital. Summary Asthma attacks are caused by narrowing or tightness in air passages, which causes shortness of breath, coughing, and wheezing. Many things can trigger an asthma attack, such as allergens, weather changes, exercise, strong odors, and smoke of any kind. If you have an asthma attack, act quickly. Follow the emergency steps on your written asthma actionplan. Get help right away if you have severe trouble breathing, chest pain, or fever, or if your home medicines are no longer helping with your symptoms. This information is not intended to replace advice given to you by your health care provider. Make sure you discuss any questions you have with your health care provider. Document Revised: 07/30/2022 Document Reviewed: 07/30/2022 [employer] Patient Education 2022 [place]. Follow Up Care 03/10/2024 16:13:14 With:Mara BEVERLY MD, FAM Address: When: only if needed [facility] [place] 02-19-2024 Hospital Discharge instructions Patient Education 12/10/2023 19:12:07 Temporomandibular Joint Syndrome Temporomandibular Joint Syndrome Temporomandibular joint syndrome (TMJ syndrome) is a condition that causes pain in the temporomandibular joints. These joints are located near your ears and allow your jaw to open and close. For people with TMJ syndrome, chewing, biting, or other movements of the jaw can be difficult or painful. TMJ syndrome is often mild and goes away within a few weeks. However, sometimes the condition becomes a long-term (chronic) problem. What are the causes? This condition may be caused by: Grinding your teeth or clenching your jaw. Some people do this when they are stressed. Arthritis. An injury to the jaw. A head or neck injury. Teeth or dentures that are not aligned well. In some cases, the cause of TMJ syndrome may not be known. What are the signs or symptoms? The most common symptom of this condition is aching pain on the side of the head in the area of theTMJ. Other symptoms may include: Pain when moving your jaw, such as when chewing or biting. Not being able to open your jaw all the way. Making a clicking sound when you open your mouth. Headache. Earache. Neck or shoulder pain. How is this diagnosed? This condition may be diagnosed based on: Your symptoms and medical history. A physical exam. Your health care provider may check the range of motion of your jaw. Imaging tests, such as X-rays or an MRI. You may also need to see your dentist, who will check if your teeth and jaw are lined up correctly. How is this treated? TMJ syndrome often goes away on its own. If treatment is needed, it may include: Eating soft foods and applying ice or heat. Medicines to relieve pain or inflammation. Medicines or massage to relax the muscles. A splint, bite plate, or mouthpiece to prevent teeth grinding or jaw clenching. Relaxation techniques or counseling to help reduce stress. A therapy for pain in which an electrical current is applied to the nerves through the skin (transcutaneous electrical nerve stimulation). Acupuncture. This may help to relieve pain. Jaw surgery. This is rarely needed. Follow these instructions at home: Eating and drinking Eat a soft diet if you are having trouble chewing. Avoid foods that require a lot of chewing. Do not chew gum. General instructions Take efgd-zyu-cicialn and prescription medicines only as told by your health care provider. If directed, put ice on the painful area. To do this: ?Put ice in a plastic bag. ?Place a towel between your skin and the bag. ?Leave the ice on for 20 minutes, 2 3 times a day. ?Remove the ice if your skin turns bright red. This is very important. If you cannot feel pain, heat, or cold, you have a greater risk of damage to the area. Apply a warm, wet cloth (warm compress) to the painful area as told. Massage your jaw area and do any jaw stretching exercises as told by your health care provider. If you were given a splint, bite plate, or mouthpiece, wear it as told by your health care provider. Keep all follow-up visits. This is important. Where to find more information National [place] of Dental and Craniofacial Research: www.nidcr.nih.gov Contact a health care provider if: You have trouble eating. You have new or worsening symptoms. Get help right away if: Your jaw locks. Summary Temporomandibular joint syndrome (TMJ syndrome) is a condition that causes pain in the temporomandibular joints. These joints are located near your ears and allow your jaw to open and close. TMJ syndrome is often mild and goes away within a few weeks. However, sometimes the condition becomes a long-term (chronic) problem. Symptoms include an aching pain on the side of the head in the area of the TMJ, pain when chewing or biting, and being unable to open your jaw all the way. You may also make a clicking sound when youopen your mouth. TMJ syndrome often goes away on its own. If treatment is needed, it may include medicines to relieve pain, reduce inflammation, or relax the muscles. A splint, bite plate, or mouthpiece may also be used to prevent teeth grinding or jaw clenching. This information is not intended to replace advice given to you by your health care provider. Make sure you discuss any questions you have with your health care provider. Document Revised: 05/21/2022 Document Reviewed: 05/21/2022 [employer] Patient Education 2022 [place]. 12/08/2023 16:12:10 DASH Eating Plan DASH Eating Plan DASH stands for Dietary Approaches to Stop Hypertension. The DASH eating plan is a healthy eating plan that has been shown to: Reduce high blood pressure (hypertension). Reduce your risk for type 2 diabetes, heart disease, and stroke. Help with weight loss. What are tips for following this plan? Reading food labels Check food labels for the amount of salt (sodium) per serving. Choose foods with less than 5 percent of the Daily Value of sodium. Generally, foods with less than 300 milligrams (mg) of sodium per serving fit into this eating plan. To find whole grains, look for the word whole as the first word in the ingredient list. Shopping Buy products labeled as low-sodium or no salt added. Buy fresh foods. Avoid canned foods and pre-made or frozen meals. Cooking Avoid adding salt when cooking. Use salt-free seasonings or herbs instead of table salt or sea salt. Check with your health care provider or pharmacist before using salt substitutes. Do not jennings foods. Cook foods using healthy methods such as baking, boiling, grilling, roasting, andbroiling instead. Cook with heart-healthy oils, such as olive, canola, avocado, soybean, or sunflower oil. Meal planning Eat a balanced diet that includes: ?4 or more servings of fruits and 4 or more servings of vegetables each day. Try to fill one-half of your plate with fruits and vegetables. ?6 8 servings of whole grains each day. ?Less than 6 oz (170 g) of lean meat, poultry, or fish each day. A 3-oz (85-g) serving of meat is about the same size as a deck of cards. One egg equals 1 oz (28 g). ?2 3 servings of low-fat dairy each day. One serving is 1 cup (237 mL). ?1 serving of nuts, seeds, or beans 5 times each week. ?2 3 servings of heart-healthy fats. Healthy fats called omega-3 fatty acids are found in foods such as walnuts, flaxseeds, fortified milks, and eggs. These fats are also found in cold-water fish, such as sardines, salmon, and mackerel. Limit how much you eat of: ?Canned or prepackaged foods. ?Food that is high in trans fat, such as some fried foods. ?Food that is high in saturated fat, such as fatty meat. ?Desserts and other sweets, sugary drinks, and other foods with added sugar. ?Full-fat dairy products. Do not salt foods before eating. Do not eat more than 4 egg yolks a week. Try to eat at least 2 vegetarian meals a week. Eat more home-cooked food and less restaurant, buffet, and fast food. Lifestyle When eating at a restaurant, ask that your food be prepared with less salt or no salt, if possible. If you drink alcohol: ?Limit how much you use to: ?0 1 drink a day for women who are not . ?0 2 drinks a day for men. ?Be aware of how much alcohol is in your drink. In the [place] one drink equals one 12 oz bottle of beer (355 mL), one 5 oz glass of wine (148 mL), or one 1 oz glass of hard liquor (44 mL). General information Avoid eating more than 2,300 mg of salt a day. If you have hypertension, you may need to reduce your sodium intake to 1,500 mg a day. Work with your health care provider to maintain a healthy body weight or to lose weight. Ask what an ideal weight is for you. Get at least 30 minutes of exercise that causes your heart to beat faster (aerobic exercise) most days of the week. Activities may include walking, swimming, or biking. Work with your health care provider or dietitian to adjust your eating plan to your individual calorie needs. What foods should I eat? Fruits All fresh, dried, or frozen fruit. Canned fruit in natural juice (without added sugar). Vegetables Fresh or frozen vegetables (raw, steamed, roasted, or grilled). Low-sodium or reduced-sodium tomatoand vegetable juice. Low-sodium or reduced-sodium tomato sauce and tomato paste. Low-sodium or reduced-sodium canned vegetables. Grains Whole-grain or whole-wheat bread. Whole-grain or whole-wheat pasta. Brown rice. Oatmeal. Quinoa. Bulgur. Whole-grain and low-sodium cereals. Mirna bread. Low- fat, low-sodium crackers. Whole-wheat flour tortillas. Meats and other proteins Skinless chicken or turkey. Ground chicken or turkey. Pork with fat trimmed off. Fish and seafood. Egg whites. Dried beans, peas, or lentils. Unsalted nuts, nut butters, and seeds. Unsalted canned beans. Lean cuts of beef with fat trimmed off. Low-sodium, lean precooked or cured meat, such as sausages or meat loaves. Dairy Low-fat (1%) or fat-free (skim) milk. Reduced-fat, low-fat, or fat-free cheeses. Nonfat, low-sodiumricotta or cottage cheese. Low-fat or nonfat yogurt. Low-fat, low-sodium cheese. Fats and oils Soft margarine without trans fats. Vegetable oil. Reduced-fat, low-fat, or light mayonnaise and salad dressings (reduced-sodium). Canola, safflower, olive, avocado, soybean, and sunflower oils. Avocado. Seasonings and condiments Herbs. Spices. Seasoning mixes without salt. Other foods Unsalted popcorn and pretzels. Fat-free sweets. The items listed above may not be a complete list of foods and beverages you can eat. Contact a dietitian for more information. What foods should I avoid? Fruits Canned fruit in a light or heavy syrup. Fried fruit. Fruit in cream or butter sauce. Vegetables Creamed or fried vegetables. Vegetables in a cheese sauce. Regular canned vegetables (not low-sodium or reduced-sodium). Regular canned tomato sauce and paste (not low-sodium or reduced-sodium). Regular tomato and vegetable juice (not low-sodium or reduced-sodium). Pickles. Olives. Grains Baked goods made with fat, such as croissants, muffins, or some breads. Dry pasta or rice meal packs. Meats and other proteins Fatty cuts of meat. Ribs. Fried meat. Amaral. Bologna, salami, and other precooked or cured meats, such as sausages or meat loaves. Fat from the back of a pig (fatback). Bratwurst. Salted nuts and seeds. Canned beans with added salt. Canned or smoked fish. Whole eggs or egg yolks. Chicken or turkey with skin. Dairy Whole or 2% milk, cream, and pbei-xau-gcsx. Whole or full-fat cream cheese. Whole-fat or sweetened yogurt. Full-fat cheese. Nondairy creamers. Whipped toppings. Processed cheese and cheese spreads. Fats and oils Butter. Stick margarine. Lard. Shortening. Ghee. Amaral fat. Tropical oils, such as coconut, palm kernel, or palm oil. Seasonings and condiments Onion salt, garlic salt, seasoned salt, table salt, and sea salt. [facility] sauce. Tartar sauce. Barbecue sauce. Teriyaki sauce. Soy sauce, including reduced-sodium. Steak sauce. Canned and packaged gravies. Fish sauce. Oyster sauce. Cocktail sauce. Store-bought horseradish. Ketchup. Mustard. Meat flavorings and tenderizers. Bouillon cubes. Hot sauces. Pre-made or packaged marinades. Pre-made or packaged taco seasonings. Relishes. Regular salad dressings. Other foods Salted popcorn and pretzels. The items listed above may not be a complete list of foods and beverages you should avoid. Contact a dietitian for more information. Where to find more information National Heart, Lung, and Blood [place]: www.nhlbi.nih.gov [place] Heart Association: www.heart.org Academy of Nutrition and Dietetics: www.eatright.org National Kidney Foundation: www.kidney.org Summary The DASH eating plan is a healthy eating plan that has been shown to reduce high blood pressure (hypertension). It may also reduce your risk for type 2 diabetes, heart disease, and stroke. When on the DASH eating plan, aim to eat more fresh fruits and vegetables, whole grains, lean proteins, low-fat dairy, and heart-healthy fats. With the DASH eating plan, you should limit salt (sodium) intake to 2,300 mg a day. If you have hypertension, you may need to reduce your sodium intake to 1,500 mg a day. Work with your health care provider or dietitian to adjust your eating plan to your individual calorie needs. This information is not intended to replace advice given to you by your health care provider. Make sure you discuss any questions you have with your health care provider. Document Revised: 09/10/2020 Document Reviewed: 09/10/2020 [employer] Patient Education 2022 [place]. Follow Up Care 11/15/2023 15:10:42 With:SIRIA ARMENTA, EVI Nicole Address: [address] [place] [place] [phone]- When: Unknown Comments:see me in April, get labs at [facility] late March and a mammogram at [facility] Javi 12-27-2023 Hospital Discharge instructions Patient Education 10/17/2023 15:11:37 Sinus Infection, Adult, Ivez-to-Kxyj Sinus Infection, Adult A sinus infection is soreness and swelling (inflammation) of your sinuses. Sinuses are hollow spaces in the bones around your face. They are located: Around your eyes. In the middle of your forehead. Behind your nose. In your cheekbones. Your sinuses and nasal passages are lined with a fluid called mucus. Mucus drains out of your sinuses. Swelling can trap mucus in your sinuses. This lets germs (bacteria, virus, or fungus) grow, which leads to infection. Most of the time, this condition is caused by a virus. What are the causes? Allergies. Asthma. Germs. Things that block your nose or sinuses. Growths in the nose (nasal polyps). Chemicals or irritants in the air. A fungus. This is rare. What increases the risk? Having a weak body defense system (immune system). Doing a lot of swimming or diving. Using nasal sprays too much. Smoking. What are the signs or symptoms? The main symptoms of this condition are pain and a feeling of pressure around the sinuses. Other symptoms include: Stuffy nose (congestion). This may make it hard to breathe through your nose. Runny nose (drainage). Soreness, swelling, and warmth in the sinuses. A cough that may get worse at night. Being unable to smell and taste. Mucus that collects in the throat or the back of the nose (postnasal drip). This may cause a sore throat or bad breath. Being very tired (fatigued). A fever. How is this diagnosed? Your symptoms. Your medical history. A physical exam. Tests to find out if your condition is short-term (acute) or long-term (chronic). Your doctor may: ?Check your nose for growths (polyps). ?Check your sinuses using a tool that has a light on one end (endoscope). ?Check for allergies or germs. ?Do imaging tests, such as an MRI or CT scan. How is this treated? Treatment for this condition depends on the cause and whether it is short-term or long-term. If caused by a virus, your symptoms should go away on their own within 10 days. You may be given medicines to relieve symptoms. They include: ?Medicines that shrink swollen tissue in the nose. ?A spray that treats swelling of the nostrils. ?Rinses that help get rid of thick mucus in your nose (nasal saline washes). ?Medicines that treat allergies (antihistamines). ?Eyzm-ham-klwzabr pain relievers. If caused by bacteria, your doctor may wait to see if you will get better without treatment. You may be given antibiotic medicine if you have: ?A very bad infection. ?A weak body defense system. If caused by growths in the nose, surgery may be needed. Follow these instructions at home: Medicines Take, use, or apply xyjj-wao-pzfwnks and prescription medicines only as told by your doctor. These may include nasal sprays. If you were prescribed an antibiotic medicine, take it as told by your doctor. Do not stop taking it even if you start to feel better. Hydrate and humidify Drink enough water to keep your pee (urine) pale yellow. Use a cool mist humidifier to keep the humidity level in your home above 50%. Breathe in steam for 10 15 minutes, 3 4 times a day, or as told by your doctor. You can do this in the bathroom while a hot shower is running. Try not to spend time in cool or dry air. Rest Rest as much as you can. Sleep with your head raised (elevated). Make sure you get enough sleep each night. General instructions Put a warm, moist washcloth on your face 3 4 times a day, or as often as told by your doctor. Use nasal saline washes as often as told by your doctor. Wash your hands often with soap and water. If you cannot use soap and water, use hand load test mechanic. Do not smoke. Avoid being around people who are smoking (secondhand smoke). Keep all follow-up visits. Contact a doctor if: You have a fever. Your symptoms get worse. Your symptoms do not get better within 10 days. Get help right away if: You have a very bad headache. You cannot stop vomiting. You have very bad pain or swelling around your face or eyes. You have trouble seeing. You feel confused. Your neck is stiff. You have trouble breathing. These symptoms may be an emergency. Get help right away. Call 911. Do not wait to see if the symptoms will go away. Do not drive yourself to the hospital. Summary A sinus infection is swelling of your sinuses. Sinuses are hollow spaces in the bones around your face. This condition is caused by tissues in your nose that become inflamed or swollen. This traps germs.These can lead to infection. If you were prescribed an antibiotic medicine, take it as told by your doctor. Do not stop taking it even if you start to feel better. Keep all follow-up visits. This information is not intended to replace advice given to you by your health care provider. Make sure you discuss any questions you have with your health care provider. Document Revised: 09/12/2022 Document Reviewed: 09/12/2022 [employer] Patient Education 2022 [place]. 10/17/2023 15:11:36 BMI for Adults BMI for Adults What is BMI? Body mass index (BMI) is a number that is calculated from a person's weight and height. BMI can help estimate how much of a person's weight is composed of fat. BMI does not measure body fat directly.Rather, it is an alternative to procedures that directly measure body fat, which can be difficult and expensive. BMI can help identify people who may be at higher risk for certain medical problems. What are BMI measurements used for? BMI is used as a screening tool to identify possible weight problems. It helps determine whether a person is obese, overweight, a healthy weight, or underweight. BMI is useful for: Identifying a weight problem that may be related to a medical condition or may increase the risk for medical problems. Promoting changes, such as changes in diet and exercise, to help reach a healthy weight. BMI screening can be repeated to see if these changes are working. How is BMI calculated? BMI involves measuring your weight in relation to your height. Both height and weight are measured,and the BMI is calculated from those numbers. This can be done either in [place] or metric measurements. Note that charts and online BMI calculators are available to help you find your BMI quickly and easily without having to do these calculations yourself. To calculate your BMI in [place] measurements: 1.Measure your weight in pounds (lb). 2.Multiply the number of pounds by 703. For example, for a person who weighs 180 lb, multiply that number by 703, which equals 126,540. 3.Measure your height in inches. Then multiply that number by itself to get a measurement called inches squared. For example, for a person who is 70 inches tall, the inches squared measurement is 70 inches x 70inches, which equals 4,900 inches squared. 4.Divide the total from step 2 (number of lb x 703) by the total from step 3 (inches squared): 126,540 4,900 = 25.8. This is your BMI. To calculate your BMI in metric measurements: 1.Measure your weight in kilograms (kg). 2.Measure your height in meters (m). Then multiply that number by itself to get a measurement called meters squared. For example, for a person who is 1.75 m tall, the meters squared measurement is 1.75 m x 1.75 m, which is equal to 3.1 meters squared. 3.Divide the number of kilograms (your weight) by the meters squared number. In this example: 70 3.1 = 22.6. This is your BMI. What do the results mean? BMI charts are used to identify whether you are underweight, normal weight, overweight, or obese. The following guidelines will be used: Underweight: BMI less than 18.5. Normal weight: BMI between 18.5 and 24.9. Overweight: BMI between 25 and 29.9. Obese: BMI of 30 or above. Keep these notes in mind: Weight includes both fat and muscle, so someone with a muscular build, such as an athlete, may havea BMI that is higher than 24.9. In cases like these, BMI is not an accurate measure of body fat. To determine if excess body fat is the cause of a BMI of 25 or higher, further assessments may needto be done by a health care provider. BMI is usually interpreted in the same way for men and women. Where to find more information For more information about BMI, including tools to quickly calculate your BMI, go to these websites: Centers for Disease Control and Prevention: www.cdc.gov [place] Heart Association: www.heart.org National Heart, Lung, and Blood [place]: www.nhlbi.nih.gov Summary Body mass index (BMI) is a number that is calculated from a person's weight and height. BMI may help estimate how much of a person's weight is composed of fat. BMI can help identify thosewho may be at higher risk for certain medical problems. BMI can be measured using [place] measurements or metric measurements. BMI charts are used to identify whether you are underweight, normal weight, overweight, or obese. This information is not intended to replace advice given to you by your health care provider. Make sure you discuss any questions you have with your health care provider. Document Revised: 06/30/2020 Document Reviewed: 05/07/2020 [employer] Patient Education 2022 [employer] Follow Up Care 10/17/2023 10:36:14 With:Mara BEVERLY MD, FAM Address: [address] [place], [place] [id number]- When: Unknown [facility] 07-27-2023 NotePatient: LEVI SOFIA Age: 63 years Sex: Female : 1960 Associated Diagnoses: None Author: Melva Grimaldo DO Results Review General results Discharge Information Discharge Summary Information: Admit Date/Time: 05/16/23 11:52 Discharge Date/Time: 05/17/23 16:33 Admitting Physician: Melva Grimaldo DO Referring Physician for Admission: Melva Grimaldo DO Consulting Physicians: Zahra KHANNA Admitting Diagnoses: Discharge Diagnoses: Unspecified internal derangement of unspecified knee Presence of right artificial knee joint Moderate persistent asthma, uncomplicated Body mass index [BMI] 40.0-44.9, adult Essential (primary) hypertension Major depressive disorder, recurrent, in partial remission Gastro-esophageal reflux disease without esophagitis Congenital hypothyroidism without goiter Prescription and Home Meds: Misc Prescription (Nebulizer Machine) See Instructions, use with medication for inhalaiton dx.J45.41, 1 EA, 0 Refill(s) Misc Prescription (Nebulizer machine tubing/ kit) See Instructions, use with nebulizer medication dx. J45.41, 1 EA, 0 Refill(s) acetaminophen-chlorzoxazone (Extra Strength Tylenol Aches and Strains) See Instructions, 1 tab q6 hrs, 0 Refill(s) acetaminophen-oxycodone (Percocet 5 mg-325 mg oral tablet) See Instructions, Take one to two every 4 hours as needed for pain., 50 tab(s), 0 Refill(s) acetaminophen-oxycodone (Percocet 5 mg-325 mg oral tablet) See Instructions, 1-2 po q 4 prn pain, 30 tab(s), 0 Refill(s) acetaminophen-oxycodone (Percocet 5 mg-325 mg oral tablet) See Instructions, Take one to two every 4 hours as needed for pain., 50 tab(s), 0 Refill(s) albuterol (ProAir HFA 90 mcg/inh inhalation aerosol) 2 puff(s), Inhalation, q6hr, PRN: for wheezing, 1 EA, 1 Refill(s) albuterol (albuterol 0.083% Inh Mamie 3 mL) 0.083% - 3mL dosing units, Inhalation, q4hr, PRN: as needed for wheezing, 30 EA, 0 Refill(s) aspirin (aspirin 325 mg Tab) 325 mg, 1 tab(s), Oral, Daily, for 30 day(s), 30 tab(s), 0 Refill(s) aspirin (aspirin 325 mg Tab) 325 mg, 1 tab(s), Oral, Daily, for 30 day(s), 30 tab(s), 0 Refill(s) atorvastatin (atorvastatin 20 mg Tab) 20 mg, 1 tab(s), Oral, Once a day (at bedtime), 90 tab(s), 1 Refill(s) budesonide-formoterol (Symbicort 160/4.5 inhalation aerosol with adapter) 2 puff(s), Inhalation, BID, 3 EA, 1 Refill(s) citalopram (citalopram 20 mg Tab) 20 mg, 1 tab(s), Oral, Daily, 90 tab(s), 1 Refill(s) diclofenac (diclofenac sodium 75 mg Oral EC Tab) 75 mg, 1 tab(s), Oral, BID, 180 tab(s), 3 Refill(s) docusate (Colace 100 mg Cap) 100 mg, 1 cap(s), Oral, BID, 20 cap(s), 0 Refill(s) docusate (Colace 100 mg Cap) 100 mg, 1 cap(s), Oral, BID, 20 cap(s), 0 Refill(s) docusate (Colace 100 mg Cap) 100 mg, 1 cap(s), Oral, BID, 20 cap(s), 0 Refill(s) duloxetine (duloxetine 30 mg oral delayed release capsule) 30 mg, 1 cap(s), Oral, Daily, 90 cap(s),1 Refill(s) fexofenadine (Carla 24 Hour Allergy oral tablet) 180 mg, 1 tab(s), Oral, Daily, 30 tab(s), 0 Refill(s) fluconazole (Diflucan 150 mg Tab) See Instructions, Take one po q 3 day as needed for post op yeast, 2 caplet(s), 0 Refill(s) hydrochlorothiazide (hydrochlorothiazide 12.5 mg Cap) 12.5 mg, 1 cap(s), Oral, Daily, for 90 day(s), 90 cap(s), 3 Refill(s) levothyroxine (levothyroxine 137 mcg (0.137 mg) Tab) 137 microgram, 1 tab(s), Oral, Daily, 90 tab(s), 1 Refill(s) losartan (losartan 50 mg Tab) 50 mg, 1 tab(s), Oral, BID, 180 tab(s), 1 Refill(s) montelukast (montelukast 10 mg Tab) 10 mg, 1 tab(s), Oral, qPM, 90 tab(s), 1 Refill(s) multivitamin (Daily Multiple Vitamins) 1 tab(s), Oral, Daily mupirocin topical (mupirocin Top 2% Crm) 1 mariposa, Topical, TID, 15 gram, 0 Refill(s) omeprazole (omeprazole 20 mg Cap-DR) 20 mg, 1 cap(s), Oral, Daily, 90 cap(s), 1 Refill(s) oxybutynin (oxybutynin 15 mg ER Tab) 15 mg, 1 tab(s), Oral, Daily, 90 tab(s), 1 Refill(s) propranolol (propranolol 80 mg Cap-ER) 80 mg, 1 cap(s), Oral, BID, 180 cap(s), 1 Refill(s) sulfamethoxazole-trimethoprim (Bactrim D.S. 800 mg-160 mg Tab) 1 tab(s), Oral, BID, for 14 day(s), 28 tab(s), 0 Refill(s) sulfamethoxazole-trimethoprim (Bactrim D.S. 800 mg-160 mg Tab) 1 tab(s), Oral, BID, for 14 day(s), 28 tab(s), 0 Refill(s) sumatriptan (SUMAtriptan 100 mg Tab) 100 mg, 1 tab(s), Oral, As Directed, Take at onset of migraine. May repeat dose in 1 hour if no relief, PRN: Migraine headache, 9 tab(s), 0 Refill(s) triamcinolone nasal (Nasacort Allergy 24HR nasal spray) 110 mcg, 2 spray(s), Nasal, Daily, 3 EA, 1 Refill(s) D/C home. Reg diet. WBAT with brace on in full extension. Mepilex. Hunter out POD#21. ASA DVTp daily 4 weeks. F/U in 2 weeks.[facility] Comment on above:Result Comment: Electronically Signed By: Melva Grimaldo DO\.br\Date and Time Signed: 05/17/23 16:34 [id number] Evaluation + Plan note Extracted from: Title:Discharge Summary * Author:Anil Grimaldo DO Date:05/17/23 Discharge Information Discharge Summary Information: Admit Date/Time: 05/16/23 11:52Discharge Date/Time: 05/17/23 16:33 Admitting Physician: Melva Grimaldo DO Referring Physician for Admission: Melva Grimaldo DO Consulting Physicians: Zahra KHANNA Admitting Diagnoses: Discharge Diagnoses: Unspecified internal derangement of unspecified knee Presence of right artificial knee joint Moderate persistent asthma, uncomplicated Body mass index [BMI] 40.0-44.9, adult Essential (primary) hypertension Major depressive disorder, recurrent, in partial remission Gastro-esophageal reflux disease without esophagitis Congenital hypothyroidism without goiter Prescription and Home Meds: Misc Prescription (Nebulizer Machine) See Instructions, use with medication for inhalaiton dx.J45.41, 1 EA, 0 Refill(s) Misc Prescription (Nebulizer machine tubing/ kit) See Instructions, use with nebulizer medication dx. J45.41, 1 EA, 0 Refill(s) acetaminophen-chlorzoxazone (Extra Strength Tylenol Aches and Strains) See Instructions, 1 tab q6 hrs, 0 Refill(s) acetaminophen-oxycodone (Percocet 5 mg-325 mg oral tablet) See Instructions, Take one to two every 4 hours as needed for pain., 50 tab(s), 0 Refill(s) acetaminophen-oxycodone (Percocet 5 mg-325 mg oral tablet) See Instructions, 1-2 po q 4 prn pain, 30 tab(s), 0 Refill(s) acetaminophen-oxycodone (Percocet 5 mg-325 mg oral tablet) See Instructions, Take one to two every 4 hours as needed for pain., 50 tab(s), 0 Refill(s) albuterol (ProAir HFA 90 mcg/inh inhalation aerosol) 2 puff(s), Inhalation, q6hr, PRN: for wheezing, 1 EA, 1 Refill(s) albuterol (albuterol 0.083% Inh Mamie 3 mL) 0.083% - 3mL dosing units, Inhalation, q4hr, PRN: as needed for wheezing, 30 EA, 0 Refill(s) aspirin (aspirin 325 mg Tab) 325 mg, 1 tab(s), Oral, Daily, for 30 day(s), 30 tab(s), 0 Refill(s) aspirin (aspirin 325 mg Tab) 325 mg, 1 tab(s), Oral, Daily, for 30 day(s), 30 tab(s), 0 Refill(s) atorvastatin (atorvastatin 20 mg Tab) 20 mg, 1 tab(s), Oral, Once a day (at bedtime), 90 tab(s), 1 Refill(s) budesonide-formoterol (Symbicort 160/4.5 inhalation aerosol with adapter) 2 puff(s), Inhalation, BID, 3 EA, 1 Refill(s) citalopram (citalopram 20 mg Tab) 20 mg, 1 tab(s), Oral, Daily, 90 tab(s), 1 Refill(s) diclofenac (diclofenac sodium 75 mg Oral EC Tab) 75 mg, 1 tab(s), Oral, BID, 180 tab(s), 3 Refill(s) docusate (Colace 100 mg Cap) 100 mg, 1 cap(s), Oral, BID, 20 cap(s), 0 Refill(s) docusate (Colace 100 mg Cap) 100 mg, 1 cap(s), Oral, BID, 20 cap(s), 0 Refill(s) docusate (Colace 100 mg Cap) 100 mg, 1 cap(s), Oral, BID, 20 cap(s), 0 Refill(s) duloxetine (duloxetine 30 mg oral delayed release capsule) 30 mg, 1 cap(s), Oral, Daily, 90 cap(s), 1 Refill(s) fexofenadine (Carla 24 Hour Allergy oral tablet) 180 mg, 1 tab(s), Oral, Daily, 30 tab(s), 0 Refill(s) fluconazole (Diflucan 150 mg Tab) See Instructions, Take one po q 3 day as needed for post op yeast, 2 caplet(s), 0 Refill(s) hydrochlorothiazide (hydrochlorothiazide 12.5 mg Cap) 12.5 mg, 1 cap(s), Oral, Daily, for 90 day(s), 90 cap(s), 3 Refill(s) levothyroxine (levothyroxine 137 mcg (0.137 mg) Tab) 137 microgram, 1 tab(s), Oral, Daily, 90 tab(s), 1 Refill(s) losartan (losartan 50 mg Tab) 50 mg, 1 tab(s), Oral, BID, 180 tab(s), 1 Refill(s) montelukast (montelukast 10 mg Tab) 10 mg, 1 tab(s), Oral, qPM, 90 tab(s), 1 Refill(s) multivitamin (Daily Multiple Vitamins) 1 tab(s), Oral, Daily mupirocin topical (mupirocin Top 2% Crm) 1 mar[place], Topical, TID, 15 gram, 0 Refill(s) omeprazole (omeprazole 20 mg Cap-DR) 20 mg, 1 cap(s), Oral, Daily, 90 cap(s), 1 Refill(s) oxybutynin (oxybutynin 15 mg ER Tab) 15 mg, 1 tab(s), Oral, Daily, 90 tab(s), 1 Refill(s) propranolol (propranolol 80 mg Cap-ER) 80 mg, 1 cap(s), Oral, BID, 180 cap(s), 1 Refill(s) sulfamethoxazole-trimethoprim (Bactrim D.S. 800 mg-160 mg Tab) 1 tab(s), Oral, BID, for 14 day(s), 28 tab(s), 0 Refill(s) sulfamethoxazole-trimethoprim (Bactrim D.S. 800 mg-160 mg Tab) 1 tab(s), Oral, BID, for 14 day(s), 28 tab(s), 0 Refill(s) sumatriptan (SUMAtriptan 100 mg Tab) 100 mg, 1 tab(s), Oral, As Directed, Take at onset of migraine. May repeat dose in 1 hour if no relief, PRN: Migraine headache, 9 tab(s), 0 Refill(s) triamcinolone nasal (Nasacort Allergy 24HR nasal spray) 110 mcg, 2 spray(s), Nasal, Daily, 3 EA, 1 Refill(s) D/C home. Reg diet. WBAT with brace on in full extension. Mepilex. Hunter out POD#21. ASA DVTp daily 4 weeks. F/U in 2 weeks. Extracted from: Title:Consult Note Author:Analy ARMENTA, Fito Faustino e:05/17/23 Extensor mechanism malalignm ent of knee Hx of total right knee replacement -s/p operative intervention by orthopedic surgery -Pt -D/C per orthopedic surgery Hypertension -resume home medications -PRN labetalol Asthma -I/S -duo nebs -no s/s of exacerbation at this time Obesity -Patient's BMI >30. Lifestyle modifications encouraged. Obesity is a pro- inflammatory state likely affecting above medical processes. Outpatient follow up. depression -stable home meds GERD -stable no s/s of GI bleed ppi and H2 miki hypothyroidism -stable, resume home meds, out pt f/u w/PCP Plan: per Orthopedics Extracted from: Title:Right POD #1 retinacul ar repair with allograft Author:Melva Grimaldo DO Date:05/17/23 Impression and Plan Diagnosis POD #1 Right retinacular repair with subacute TKA, obesity BMI>40, HTN. Orders Continue mechanical and pharmacologic DVT prophylaxis. Analgesics. PT and OT services, WBAT with brace on in full extension. Discharge planning with TCU eval. vs home pending PT today. Scripts written and sent for Percocet ASA 325 daily 4 weeks Colace Bactrim BID. .. Extracted from: Title:Initial consult Hospitalist Author:Fito Watkins i, MD Date:05/16/23 Extensor mechanism malalignm ent of knee Hx of total right knee replacement -s/p operative intervention by orthopedic surgery -Pt -D/C per orthopedic surgery Hypertension -resume home medications -PRN labetalol asthma -I/S -duo nebs -no s/s of exacerbation at this time obesity -Patient's BMI >30. Lifestyle modifications encouraged. Obesity is a pro- inflammatory state likely affecting above medical processes. Outpatient follow up. depression -stable home meds GERD -stable no s/s of GI bleed ppi and H2 miki hypothyroidism -stable, resume home meds, out pt f/u w/PCP Time: 60 minutes Plan: per Orthopedics Addendum by Analy ARMENTA, Ah ad on May 16, 2023 18:34:39 EDT This is not an HP this is a consult note Enalapril added as PRN instead of labetalol as she is already on a beta miki Extracted from: Title:ANES Post-operative Note - General Author: Avelino De La Vega Jr., DO Date:05/16/23 Plan Transfer/Discharge: Transfer/Discharge Discharge when meets criteria ( From PACU to Ambulatory Surgery Unit, and To home ). [facility]07-27-2023 NoteReason for Consultation Medical management History of Present Illness Patient was seen. Doing well today anxious to go home Review of Systems Denies any headaches change in vision chest pain chest tightness Physical Exam Vitals & Measurements T: 36.7 ?C(Axillary) TMIN: 36.3 ?C(Oral) TMAX: 36.7 ?C(Oral) HR: 69(Monitored) RR: 18 BP: 117/66 SpO2: 97% WT: 128.4 kg General: alert, no acute distress Psychiatric: cooperative, affect appropriate for age Neurological: awake, alert, oriented, speech normal Cardiovascular: no overt murmurs Respiratory: coarse Gastrointestinal: soft NT, NG, NR Extremities: no edema, no wound Assessment/Plan Extensor mechanism malalignment of knee Hx of total right knee replacement -s/p operative intervention by orthopedic surgery -Pt -D/C per orthopedic surgery Hypertension -resume home medications -PRN labetalol Asthma -I/S -duo nebs -no s/s of exacerbation at this time Obesity -Patient's BMI >30. Lifestyle modifications encouraged. Obesity is a pro- inflammatory state likely affecting above medical processes. Outpatient follow up. depression -stable home meds GERD -stable no s/s of GI bleed ppi and H2 miki hypothyroidism -stable, resume home meds, out pt f/u w/PCP Plan: per Orthopedics Problem List/Past Medical History Ongoing Allergic rhinitis due to pollen Asthma, moderate persistent Benign hypertension BMI 40.0-44.9, adult Combined hyperlipidemia Depression, major, recurrent, in partial remission Detrusor instability of bladder Encounter for well adult exam with abnormal findings Fasting hyperglycemia GERD (gastroesophageal reflux disease) Gout Hypothyroidism, congenital Left lumbar radiculopathy Migraine headache Morbid obesity Osteoarthritis of left knee Personal history of colonic polyps Rotator cuff tear arthropathy of right shoulder Screening mammogram, encounter for Well adult exam Historical Acid reflux Actinic keratosis of left cheek Allergic rhinitis Asthma Asthma Asthma Class 2 obesity due to excess calories in adult Dysesthesia Encounter for wellness examination Epicondylitis Fatigue Hyperlipidemia Hypertension Hypertension Hypertension Hypothyroid Moderate persistent asthma with exacerbation Nasal mucositis (ulcerative) Nasal sinus Obesity Other acute sinusitis Pain in joint of left shoulder Pain, dental Recurrent frontal sinusitis TMJ - Temporomandibular joint Viral pharyngoconjunctivitis Visit for screening mammogram Procedure/Surgical History Knee replacement (04/02/2023), Colonoscopy (08/18/2021), Left foot (01/10/2021), Radiofrequency denervation of spinal facet joint of lumbar vertebra (08/18/2020), Injection of facet joint using fluoroscopic guidance (07/21/2020), Injection of facet joint using fluoroscopic guidance (07/07/2020), Cataract extraction and insertion of intraocular lens (07/05/2020), Injection of sacroiliac joint using fluoroscopic guidance (03/10/2020), Injection of sacroiliac joint using fluoroscopic guidance (12/02/2019), Sacroiliac joint injection (08/27/2019), Injection of sacroiliac joint using fluoroscopic g uidance (05/28/2019), Injection of sacroiliac joint using fluoroscopic guidance (02/05/2019), Left Transforaminal Epidural Steroid Injection (11/13/2018), Epidural injection of lumbar spine using fluoroscopic guidance (09/25/2018), Transforaminal Epidural Steroid Injection (07/17/2018), epidural steroid injection (06/12/2018), transforaminal epidural steroid injection (04/10/2018), Cataract extraction and insertion of intraocular lens (04/01/2018), transforaminal steroid injection (04/18/2017),EVLT LGSV (07/11/2016), ABHINAV lumbosacral (03/29/2016), transforaminal steroid injection (12/22/2015), transforaminal steroid injection (09/15/2015), transforaminal steroid injection (06/30/2015), Transforaminal steriod injection (04/30/2015), Trasforaminal steriod injection (02/12/2015), Transforaminal steriod injection (11/20/2014), Transforaminal epidural steroid injection (05/22/2014), Epiduralinjection of lumbar spine using fluoroscopic guidance (01/28/2014), Epidural injection of lumbar spine using fluoroscopic guidance (11/19/2013), Epidural injection of lumbar spine using fluoroscopic guidance (09/24/2013), scraping of the elbow- right (2011), hysterectomy (2008), Tonsillectomy (1964), Bunion, Hysterectomy, Sinus congestion, sinus surgeries, Transforaminal epidural steroid injection. Medications Inpatient acetaminophen-oxycodone 325 mg-5 mg Tab, 1 tab(s), Oral, q4hr, PRN acetaminophen-oxycodone 325 mg-5 mg Tab, 2 tab(s), Oral, q4hr, PRN Arixtra 2.5 mg/0.5 mL Injection, 2.5 mg= 0.5 mL, SubCutaneous, qAM atorvastatin 20 mg Tab, 20 mg= 1 tab(s), Oral, Once a day (at bedtime) budesonide 0.5 mg/2 mL Inh Susp, 0.5 mg= 2 mL, NEB, BID citalopram 20 mg Tab, 20 mg= 1 tab(s), Oral, Daily clindamycin additive + Premix Dextrose 5% Diluent 50 mL Colace 100 mg C (more content not included)...[facility] Comment: Electronically Signed By: Analy ARMENTA, Fito\.br\Date and Time Signed: 05/17/23 13:55 [id number] NotePT Evaluation completed with an AMPAC score of 18/24. Pt was able to perform functional transfers with SBA and able to ambulate with FWW with SBA. No LOB observed. Pt was able to perform steps with CGA and with use of left handrail and cane. Pt would be functionally safe to return home with caregiver assist and PT services to [facility]07-26-2023 NoteHistory of Present Illness This is a 63-year-old female with a medical history significant for hypertension, asthma, obesity, depression, GERD, hypothyroidism home hospitalist was consulted for medical management. Appears to have tolerated her procedure well. Complains of surgical site incision pain no other complaints. Denies headaches change in vision chest pain chest tightness abdominal pain abdominal discomfort. Review of Systems Positive for pain Negative for fevers chills chest pain chest tightness abdominal pain abdominal discomfort Scoring Physical Exam Vitals & Measurements T: 36.5 ?C(Axillary) TMIN: 36.3 ?C(Temporal Artery) TMAX: 36.9 ?C(Axillary) HR: 64(Monitored) RR: 16 BP: 156/75 SpO2: 98% HT: 177.0 cm WT: 127.0 kg General: alert, no acute distress Psychiatric: cooperative, affect appropriate for age Neurological: awake, alert, oriented, speech normal Cardiovascular: regular rate and rhythm, normal no overt murmurs Respiratory: respirations non labored no adventitious breath sounds Gastrointestinal: soft NT, NG, NR Extremities: no edema, no wound Lab Results Size: 4.0 X 7.0 CM THICKNESS 2.50-3.50 MM (05/16/23 16:03:22) WBC: 8.4 E9/L (05/16/23 12:47:00) RBC: 4.5 E12/L (05/16/23 12:47:00) HGB: 14.2 gm/dL (05/16/23 12:47:00) Hct: 42 % (05/16/23 12:47:00) MCV: 92.8 fL (05/16/23 12:47:00) MCH: 31.5 pg (05/16/23 12:47:00) MCHC: 33.9 gm/dL (05/16/23 12:47:00) RDW: 14.9 % High (05/16/23 12:47:00) Platelet: 228 E9/L (05/16/23 12:47:00) MPV: 8.6 fL (05/16/23 12:47:00) Glucose Fastin mg/dL High (05/16/23 12:47:00) BUN: 31 mg/dL High (05/16/23 12:47:00) Creatinine: 1.2 mg/dL (05/16/23 12:47:00) eGFR: 51 mL/min/1.73 m2 Low (05/16/23 12:47:00) Sodium Lvl: 136 mmol/L (05/16/23 12:47:00) Potassium Lvl: 3.8 mmol/L (05/16/23 12:47:00) Chloride: 103 mmol/L (05/16/23 12:47:00) CO2: 24 mmol/L (05/16/23 12:47:00) AGAP: 13 mEq/L (05/16/23 12:47:00) UA Spec Desc: [place] (05/16/23 15:41:00) UA Color: Yellow2 (05/16/23 15:41:00) UA Clarity: Clear2 (05/16/23 15:41:00) UA Spec Grav: 1.025 (05/16/23 15:41:00) UA pH: 5.5 (05/16/23 15:41:00) UA Protein: NEGATIVE1 (05/16/23 15:41:00) UA Glucose: NEGATIVE1 (05/16/23 15:41:00) UA Ketones: Trace2 Abnormal (05/16/23 15:41:00) UA Bili: NEGATIVE1 (05/16/23 15:41:00) UA Blood: NEGATIVE1 (05/16/23 15:41:00) UA Nitrite: NEGATIVE1 (05/16/23 15:41:00) UA Urobilinogen: 0.2 (05/16/23 15:41:00) UA Leuk Est: NEGATIVE1 (05/16/23 15:41:00) UA RBC: 0-3 (05/16/23 15:41:00) UA Squam Epithelial: 0-2 (05/16/23 15:41:00) UA WBC: 0-5 (05/16/23 15:41:00) Assessment/Plan Extensor mechanism malalignment of knee Hx of total right knee replacement -s/p operative intervention by orthopedic surgery -Pt -D/C per orthopedic surgery Hypertension -resume home medications -PRN labetalol asthma -I/S -duo nebs -no s/s of exacerbation at this time obesity -Patient's BMI >30. Lifestyle modifications encouraged. Obesity is a pro- inflammatory state likely affecting above medical processes. Outpatient follow up. depression -stable home meds GERD -stable no s/s of GI bleed ppi and H2 miki hypothyroidism -stable, resume home meds, out pt f/u w/PCP Time: 60 minutes Plan: per Orthopedics Problem List/Past Medical History Ongoing Allergic rhinitis due to pollen Asthma, moderate persistent Benign hypertension BMI 40.0-44.9, adult Combined hyperlipidemia Depression, major, recurrent, in partial remission Detrusor instability of bladder Encounter for well adult exam with abnormal findings Fasting hyperglycemia GERD (gastroesophageal reflux disease) Gout Hypothyroidism, congenital Left lumbar radiculopathy Migraine headache Morbid obesity Osteoarthritis of left knee Personal history of colonic polyps Rotator cuff tear arthropathy of right shoulder Screening mammogram, encounter for Well adult exam Historical Acid reflux Actinic keratosis of left cheek Allergic rhinitis Asthma Asthma Asthma Class 2 obesity due to excess calories in adult Dysesthesia Encounter for wellness examination Epicondylitis Fatigue Hyperlipidemia Hypertension Hypertension Hypertension Hypothyroid Moderate persistent asthma with exacerbation Nasal mucositis (ulcerative) Nasal sinus Obesity Other acute sinusitis Pain in joint of left shoulder Pain, dental Recurrent frontal sinusitis TMJ - Temporomandibular joint Viral pharyngoconjunctivitis Visit for screening mammogram Procedure/Surgical History Knee replacement (04/02/2023), Colonoscopy (08/18/2021), Left foot (01/10/2021), Radiofrequency denervation of spinal facet joint of lumbar vertebra (08/18/2020), Injection of facet joint using fluoroscopic guidance (07/21/2020), Injection of facet joint using fluoroscopic guidance (07/07/2020), Cataract extraction and insertion of intraocular lens (07/05/2020), Injection of sacroiliac joint using fluorosco (more content not included)...[facility]:Result Comment: Electronically Signed By: Analy ARMENTA, Fito\.br\Date and Time Signed: 05/16/23 18:35 [id number] Note History of Present Illness This is a 63-year-old female with a medical history significant for hypertension, asthma, obesity, depression, GERD, hypothyroidism home hospitalist was consulted for medical management. Appears to have tolerated her procedure well. Complains of surgical site incision pain no other complaints. Denies headaches change in vision chest pain chest tightness abdominal pain abdominal discomfort. Review of Systems Positive for pain Negative for fevers chills chest pain chest tightness abdominal pain abdominal discomfort Scoring Physical Exam Vitals & Measurements T: 36.5 ?C(Axillary) TMIN: 36.3 ?C(Temporal Artery) TMAX: 36.9 ?C(Axillary) HR: 64(Monitored) RR: 16 BP: 156/75 SpO2: 98% HT: 177.0 cm WT: 127.0 kg General: alert, no acute distress Psychiatric: cooperative, affect appropriate for age Neurological: awake, alert, oriented, speech normal Cardiovascular: regular rate and rhythm, normal no overt murmurs Respiratory: respirations non labored no adventitious breath sounds Gastrointestinal: soft NT, NG, NR Extremities: no edema, no wound Lab Results Size: 4.0 X 7.0 CM THICKNESS 2.50-3.50 MM (05/16/23 16:03:22) WBC: 8.4 E9/L (05/16/23 12:47:00) RBC: 4.5 E12/L (05/16/23 12:47:00) HGB: 14.2 gm/dL (05/16/23 12:47:00) Hct: 42 % (05/16/23 12:47:00) MCV: 92.8 fL (05/16/23 12:47:00) MCH: 31.5 pg (05/16/23 12:47:00) MCHC: 33.9 gm/dL (05/16/23 12:47:00) RDW: 14.9 % High (05/16/23 12:47:00) Platelet: 228 E9/L (05/16/23 12:47:00) MPV: 8.6 fL (05/16/23 12:47:00) Glucose Fastin mg/dL High (05/16/23 12:47:00) BUN: 31 mg/dL High (05/16/23 12:47:00) Creatinine: 1.2 mg/dL (05/16/23 12:47:00) eGFR: 51 mL/min/1.73 m2 Low (05/16/23 12:47:00) Sodium Lvl: 136 mmol/L (05/16/23 12:47:00) Potassium Lvl: 3.8 mmol/L (05/16/23 12:47:00) Chloride: 103 mmol/L (05/16/23 12:47:00) CO2: 24 mmol/L (05/16/23 12:47:00) AGAP: 13 mEq/L (05/16/23 12:47:00) UA Spec Desc: [place] (05/16/23 15:41:00) UA Color: Yellow2 (05/16/23 15:41:00) UA Clarity: Clear2 (05/16/23 15:41:00) UA Spec Grav: 1.025 (05/16/23 15:41:00) UA pH: 5.5 (05/16/23 15:41:00) UA Protein: NEGATIVE1 (05/16/23 15:41:00) UA Glucose: NEGATIVE1 (05/16/23 15:41:00) UA Ketones: Trace2 Abnormal (05/16/23 15:41:00) UA Bili: NEGATIVE1 (05/16/23 15:41:00) UA Blood: NEGATIVE1 (05/16/23 15:41:00) UA Nitrite: NEGATIVE1 (05/16/23 15:41:00) UA Urobilinogen: 0.2 (05/16/23 15:41:00) UA Leuk Est: NEGATIVE1 (05/16/23 15:41:00) UA RBC: 0-3 (05/16/23 15:41:00) UA Squam Epithelial: 0-2 (05/16/23 15:41:00) UA WBC: 0-5 (05/16/23 15:41:00) Assessment/Plan Extensor mechanism malalignment of knee Hx of total right knee replacement -s/p operative intervention by orthopedic surgery -Pt -D/C per orthopedic surgery Hypertension -resume home medications -PRN labetalol asthma -I/S -duo nebs -no s/s of exacerbation at this time obesity -Patient's BMI >30. Lifestyle modifications encouraged. Obesity is a pro- inflammatory state likely affecting above medical processes. Outpatient follow up. depression -stable home meds GERD -stable no s/s of GI bleed ppi and H2 miki hypothyroidism -stable, resume home meds, out pt f/u w/PCP Time: 60 minutes Plan: per Orthopedics Problem List/Past Medical History Ongoing Allergic rhinitis due to pollen Asthma, moderate persistent Benign hypertension BMI 40.0-44.9, adult Combined hyperlipidemia Depression, major, recurrent, in partial remission Detrusor instability of bladder Encounter for well adult exam with abnormal findings Fasting hyperglycemia GERD (gastroesophageal reflux disease) Gout Hypothyroidism, congenital Left lumbar radiculopathy Migraine headache Morbid obesity Osteoarthritis of left knee Personal history of colonic polyps Rotator cuff tear arthropathy of right shoulder Screening mammogram, encounter for Well adult exam Historical Acid reflux Actinic keratosis of left cheek Allergic rhinitis Asthma Asthma Asthma Class 2 obesity due to excess calories in adult Dysesthesia Encounter for wellness examination Epicondylitis Fatigue Hyperlipidemia Hypertension Hypertension Hypertension Hypothyroid Moderate persistent asthma with exacerbation Nasal mucositis (ulcerative) Nasal sinus Obesity Other acute sinusitis Pain in joint of left shoulder Pain, dental Recurrent frontal sinusitis TMJ - Temporomandibular joint Viral pharyngoconjunctivitis Visit for screening mammogram Procedure/Surgical History Knee replacement (04/02/2023), Colonoscopy (08/18/2021), Left foot (01/10/2021), Radiofrequency denervation of spinal facet joint of lumbar vertebra (08/18/2020), Injection of facet joint using fluoroscopic guidance (07/21/2020), Injection of facet joint using fluoroscopic guidance (07/07/2020), Cataract extraction and insertion of intraocular lens (07/05/2020), Injection of sacroiliac joint using fluorosco (more content not included)...[facility]Result Comment: Electronically Signed By: Analy ARMENTA, Fito\.br\Date and Time Signed: 05/16/23 18:31 [id number] Hospital Discharge instructions Follow Up Care 05/14/2023 10:03:11 With:Melva Grimaldo Address: [address] [place], [place] [id number] [employer] (1) When: Unknown Comments:Keep scheduled appointment [facility]06-01-2023 Hospital Discharge instructions Patient Education 03/22/2023 20:43:43 Health Maintenance, Female Health Maintenance, Female Adopting a healthy lifestyle and getting preventive care are important in promoting health and wellness. Ask your health care provider about: The right schedule for you to have regular tests and exams. Things you can do on your own to prevent diseases and keep yourself healthy. What should I know about diet, weight, and exercise? Eat a healthy diet Eat a diet that includes plenty of vegetables, fruits, low-fat dairy products, and lean protein. Do not eat a lot of foods that are high in solid fats, added sugars, or sodium. Maintain a healthy weight Body mass index (BMI) is used to identify weight problems. It estimates body fat based on height and weight. Your health care provider can help determine your BMI and help you achieve or maintain a healthy weight. Get regular exercise Get regular exercise. This is one of the most important things you can do for your health. Most adults should: Exercise for at least 150 minutes each week. The exercise should increase your heart rate and make you sweat (moderate-intensity exercise). Do strengthening exercises at least twice a week. This is in addition to the moderate-intensity exercise. Spend less time sitting. Even light physical activity can be beneficial. Watch cholesterol and blood lipids Have your blood tested for lipids and cholesterol at 20 years of age, then have this test every 5 years. Have your cholesterol levels checked more often if: Your lipid or cholesterol levels are high. You are older than 40 years of age. You are at high risk for heart disease. What should I know about cancer screening? Depending on your health history and family history, you may need to have cancer screening at various ages. This may include screening for: Breast cancer. Cervical cancer. Colorectal cancer. Skin cancer. Lung cancer. What should I know about heart disease, diabetes, and high blood pressure? Blood pressure and heart disease High blood pressure causes heart disease and increases the risk of stroke. This is more likely to develop in people who have high blood pressure readings or are overweight. Have your blood pressure checked: ?Every 3 5 years if you are 18 39 years of age. ?Every year if you are 40 years old or older. Diabetes Have regular diabetes screenings. This checks your fasting blood sugar level. Have the screening done: Once every three years after age 40 if you are at a normal weight and have a low risk for diabetes. More often and at a younger age if you are overweight or have a high risk for diabetes. What should I know about preventing infection? Hepatitis B If you have a higher risk for hepatitis B, you should be screened for this virus. Talk with your health care provider to find out if you are at risk for hepatitis B infection. Hepatitis C Testing is recommended for: Everyone born from 1945 through 1965. Anyone with known risk factors for hepatitis C. Sexually transmitted infections (STIs) Get screened for STIs, including gonorrhea and chlamydia, if: ?You are sexually active and are younger than 24 years of age. ?You are older than 24 years of age and your health care provider tells you that you are at risk for this type of infection. ?Your sexual activity has changed since you were last screened, and you are at increased risk for chlamydia or gonorrhea. Ask your health care provider if you are at risk. Ask your health care provider about whether you are at high risk for HIV. Your health care providermay recommend a prescription medicine to help prevent HIV infection. If you choose to take medicineto prevent HIV, you should first get tested for HIV. You should then be tested every 3 months for as long as you are taking the medicine. If you are about to stop having your period (premenopausal) and you may become , seek counseling before you get . Take 400 to 800 micrograms (mcg) of folic acid every day if you become . Ask for control (contraception) if you want to prevent . Osteoporosis and menopause Osteoporosis is a disease in which the bones lose minerals and strength with aging. This can resultin bone fractures. If you are 65 years old or older, or if you are at risk for osteoporosis and fractures, ask your health care provider if you should: Be screened for bone loss. Take a calcium or vitamin D supplement to lower your risk of fractures. Be given hormone replacement therapy (HRT) to treat symptoms of menopause. Follow these instructions at home: Alcohol use Do not drink alcohol if: ?Your health care provider tells you not to drink. ?You are , may be , or are planning to become . If you drink alcohol: ?Limit how much you have to: ?0 1 drink a day. ?Know how much alcohol is in your drink. In the [place] one drink equals one 12 oz bottle of beer (355 mL), one 5 oz glass of wine (148 mL), or one 1 oz glass of hard liquor (44 mL). Lifestyle Do not use any products that contain nicotine or tobacco. These products include cigarettes, chewing tobacco, and vaping devices, such as e-cigarettes. If you need help quitting, ask your health careprovider. Do not use street drugs. Do not share needles. Ask your health care provider for help if you need support or information about quitting drugs. General instructions Schedule regular health, dental, and eye exams. Stay current with your vaccines. Tell your health care provider if: ?You often feel depressed. ?You have ever been abused or do not feel safe at home. Summary Adopting a healthy lifestyle and getting preventive care are important in promoting health and wellness. Follow your health care provider's instructions about healthy diet, exercising, and getting tested or screened for diseases. Follow your health care provider's instructions on monitoring your cholesterol and blood pressure. This information is not intended to replace advice given to you by your health care provider. Make sure you discuss any questions you have with your health care provider. Document Revised: 02/27/2022 Document Reviewed: 02/27/2022 [employer] Patient Education 2022 [place]. Follow Up Care 09/18/2022 10:47:10 With:SIRIA ARMENTA, EVI Nicole Address: [address] [place] [id number] When:6 months [facility] Javi 11-06-2022 Hospital Discharge instructions Patient Education 08/27/2022 17:08:02 Health Maintenance, Female Health Maintenance, Female Adopting a healthy lifestyle and getting preventive care are important in promoting health and wellness. Ask your health care provider about: The right schedule for you to have regular tests and exams. Things you can do on your own to prevent diseases and keep yourself healthy. What should I know about diet, weight, and exercise? Eat a healthy diet Eat a diet that includes plenty of vegetables, fruits, low-fat dairy products, and lean protein. Do not eat a lot of foods that are high in solid fats, added sugars, or sodium. Maintain a healthy weight Body mass index (BMI) is used to identify weight problems. It estimates body fat based on height and weight. Your health care provider can help determine your BMI and help you achieve or maintain a healthy weight. Get regular exercise Get regular exercise. This is one of the most important things you can do for your health. Most adults should: Exercise for at least 150 minutes each week. The exercise should increase your heart rate and make you sweat (moderate-intensity exercise). Do strengthening exercises at least twice a week. This is in addition to the moderate-intensity exercise. Spend less time sitting. Even light physical activity can be beneficial. Watch cholesterol and blood lipids Have your blood tested for lipids and cholesterol at 20 years of age, then have this test every 5 years. Have your cholesterol levels checked more often if: Your lipid or cholesterol levels are high. You are older than 40 years of age. You are at high risk for heart disease. What should I know about cancer screening? Depending on your health history and family history, you may need to have cancer screening at various ages. This may include screening for: Breast cancer. Cervical cancer. Colorectal cancer. Skin cancer. Lung cancer. What should I know about heart disease, diabetes, and high blood pressure? Blood pressure and heart disease High blood pressure causes heart disease and increases the risk of stroke. This is more likely to develop in people who have high blood pressure readings, are of descent, or are overweight. Have your blood pressure checked: ?Every 3 5 years if you are 18 39 years of age. ?Every year if you are 40 years old or older. Diabetes Have regular diabetes screenings. This checks your fasting blood sugar level. Have the screening done: Once every three years after age 40 if you are at a normal weight and have a low risk for diabetes. More often and at a younger age if you are overweight or have a high risk for diabetes. What should I know about preventing infection? Hepatitis B If you have a higher risk for hepatitis B, you should be screened for this virus. Talk with your health care provider to find out if you are at risk for hepatitis B infection. Hepatitis C Testing is recommended for: Everyone born from 1945 through 1965. Anyone with known risk factors for hepatitis C. Sexually transmitted infections (STIs) Get screened for STIs, including gonorrhea and chlamydia, if: ?You are sexually active and are younger than 24 years of age. ?You are older than 24 years of age and your health care provider tells you that you are at risk for this type of infection. ?Your sexual activity has changed since you were last screened, and you are at increased risk for chlamydia or gonorrhea. Ask your health care provider if you are at risk. Ask your health care provider about whether you are at high risk for HIV. Your health care providermay recommend a prescription medicine to help prevent HIV infection. If you choose to take medicineto prevent HIV, you should first get tested for HIV. You should then be tested every 3 months for as long as you are taking the medicine. If you are about to stop having your period (premenopausal) and you may become , seek counseling before you get . Take 400 to 800 micrograms (mcg) of folic acid every day if you become . Ask for control (contraception) if you want to prevent . Osteoporosis and menopause Osteoporosis is a disease in which the bones lose minerals and strength with aging. This can resultin bone fractures. If you are 65 years old or older, or if you are at risk for osteoporosis and fractures, ask your health care provider if you should: Be screened for bone loss. Take a calcium or vitamin D supplement to lower your risk of fractures. Be given hormone replacement therapy (HRT) to treat symptoms of menopause. Follow these instructions at home: Lifestyle Do not use any products that contain nicotine or tobacco, such as cigarettes, e- cigarettes, and chewing tobacco. If you need help quitting, ask your health care provider. Do not use street drugs. Do not share needles. Ask your health care provider for help if you need support or information about quitting drugs. Alcohol use Do not drink alcohol if: ?Your health care provider tells you not to drink. ?You are , may be , or are planning to become . If you drink alcohol: ?Limit how much you use to 0 1 drink a day. ?Limit intake if you are . Be aware of how much alcohol is in your drink. In the [place] one drink equals one 12 oz bottle of beer (355 mL), one 5 oz glass of wine (148 mL), or one 1 oz glass of hard liquor (44 mL). General instructions Schedule regular health, dental, and eye exams. Stay current with your vaccines. Tell your health care provider if: ?You often feel depressed. ?You have ever been abused or do not feel safe at home. Summary Adopting a healthy lifestyle and getting preventive care are important in promoting health and wellness. Follow your health care provider's instructions about healthy diet, exercising, and getting tested or screened for diseases. Follow your health care provider's instructions on monitoring your cholesterol and blood pressure. This information is not intended to replace advice given to you by your health care provider. Make sure you discuss any questions you have with your health care provider. Document Released: 04/22/2012 Document Revised: 10/01/2019 Document Reviewed: 10/01/2019 [employer] Patient Education 2019 [place]. [facility] Javi 10-22-2022 Hospital Discharge instructions Patient Education 08/12/2022 13:36:20 BMI for Adults BMI for Adults Body mass index (BMI) is a number that is calculated from a person's weight and height. BMI may help to estimate how much of a person's weight is composed of fat. BMI can help identify those who may be at higher risk for certain medical problems. How is BMI used with adults? BMI is used as a screening tool to identify possible weight problems. It is used to check whether aperson is obese, overweight, healthy weight, or underweight. How is BMI calculated? BMI measures your weight and compares it to your height. This can be done either in [place] ([place] or metric measurements. Note that charts are available to help you find your BMI quickly and easily without having to do these calculations yourself. To calculate your BMI in [place] ([place] measurements, your health care provider will: 1.Measure your weight in pounds (lb). 2.Multiply the number of pounds by 703. For example, for a person who weighs 180 lb, multiply that number by 703, which equals 126,540. 3.Measure your height in inches (in). Then multiply that number by itself to get a measurement called inches squared. For example, for a person who is 70 in tall, the inches squared measurement is 70 in x 70 in, which equals 4900 inches squared. 4.Divide the total from Step 2 (number of lb x 703) by the total from Step 3 (inches squared): 126,540 4900 = 25.8. This is your BMI. To calculate your BMI in metric measurements, your health care provider will: 1.Measure your weight in kilograms (kg). 2.Measure your height in meters (m). Then multiply that number by itself to get a measurement called meters squared. For example, for a person who is 1.75 m tall, the meters squared measurement is 1.75 m x 1.75 m, which is equal to 3.1 meters squared. 3.Divide the number of kilograms (your weight) by the meters squared number. In this example: 70 3.1 = 22.6. This is your BMI. How is BMI interpreted? To interpret your results, your health care provider will use BMI charts to identify whether you are underweight, normal weight, overweight, or obese. The following guidelines will be used: Underweight: BMI less than 18.5. Normal weight: BMI between 18.5 and 24.9. Overweight: BMI between 25 and 29.9. Obese: BMI of 30 and above. Please note: Weight includes both fat and muscle, so someone with a muscular build, such as an athlete, may havea BMI that is higher than 24.9. In cases like these, BMI is not an accurate measure of body fat. To determine if excess body fat is the cause of a BMI of 25 or higher, further assessments may needto be done by a health care provider. BMI is usually interpreted in the same way for men and women. Why is BMI a useful tool? BMI is useful in two ways: Identifying a weight problem that may be related to a medical condition, or that may increase the risk for medical problems. Promoting lifestyle and diet changes in order to reach a healthy weight. Summary Body mass index (BMI) is a number that is calculated from a person's weight and height. BMI may help to estimate how much of a person's weight is composed of fat. BMI can help identify those who may be at higher risk for certain medical problems. BMI can be measured using Turkish measurements or metric measurements. To interpret your results, your health care provider will use BMI charts to identify whether you are underweight, normal weight, overweight, or obese. This information is not intended to replace advice given to you by your health care provider. Make sure you discuss any questions you have with your health care provider. Document Released: 06/19/2005 Document Revised: 09/20/2018 Document Reviewed: 08/21/2018 [employer] Patient Education 2020 [employer] 08/12/2022 13:36:15 Sinusitis, Adult, [id number] Sinusitis, Adult Sinusitis is soreness and swelling (inflammation) of your sinuses. Sinuses are hollow spaces in thebones around your face. They are located: Around your eyes. In the middle of your forehead. Behind your nose. In your cheekbones. Your sinuses and nasal passages are lined with a fluid called mucus. Mucus drains out of your sinuses. Swelling can trap mucus in your sinuses. This lets germs (bacteria, virus, or fungus) grow, which leads to infection. Most of the time, this condition is caused by a virus. What are the causes? This condition is caused by: Allergies. Asthma. Germs. Things that block your nose or sinuses. Growths in the nose (nasal polyps). Chemicals or irritants in the air. Fungus (rare). What increases the risk? You are more likely to develop this condition if: You have a weak body defense system (immune system). You do a lot of swimming or diving. You use nasal sprays too much. You smoke. What are the signs or symptoms? The main symptoms of this condition are pain and a feeling of pressure around the sinuses. Other symptoms include: Stuffy nose (congestion). Runny nose (drainage). Swelling and warmth in the sinuses. Headache. Toothache. A cough that may get worse at night. Mucus that collects in the throat or the back of the nose (postnasal drip). Being unable to smell and taste. Being very tired (fatigue). A fever. Sore throat. Bad breath. How is this diagnosed? This condition is diagnosed based on: Your symptoms. Your medical history. A physical exam. Tests to find out if your condition is short-term (acute) or long-term (chronic). Your doctor may: ?Check your nose for growths (polyps). ?Check your sinuses using a tool that has a light (endoscope). ?Check for allergies or germs. ?Do imaging tests, such as an MRI or CT scan. How is this treated? Treatment for this condition depends on the cause and whether it is short-term or long-term. If caused by a virus, your symptoms should go away on their own within 10 days. You may be given medicines to relieve symptoms. They include: ?Medicines that shrink swollen tissue in the nose. ?Medicines that treat allergies (antihistamines). ?A spray that treats swelling of the nostrils. ?Rinses that help get rid of thick mucus in your nose (nasal saline washes). If caused by bacteria, your doctor may wait to see if you will get better without treatment. You may be given antibiotic medicine if you have: ?A very bad infection. ?A weak body defense system. If caused by growths in the nose, you may need to have surgery. Follow these instructions at home: Medicines Take, use, or apply [id number]-[id number] and prescription medicines only as told by your doctor. These may include nasal sprays. If you were prescribed an antibiotic medicine, take it as told by your doctor. Do not stop taking the antibiotic even if you start to feel better. Hydrate and humidify Drink enough water to keep your pee (urine) pale yellow. Use a cool mist humidifier to keep the humidity level in your home above 50%. Breathe in steam for 10 15 minutes, 3 4 times a day, or as told by your doctor. You can do this in the bathroom while a hot shower is running. Try not to spend time in cool or dry air. Rest Rest as much as you can. Sleep with your head raised (elevated). Make sure you get enough sleep each night. General instructions Put a warm, moist washcloth on your face 3 4 times a day, or as often as told by your doctor. This will help with discomfort. Wash your hands often with soap and water. If there is no soap and water, use hand load test mechanic. Do not smoke. Avoid being around people who are smoking (secondhand smoke). Keep all follow-up visits as told by your doctor. This is important. Contact a doctor if: You have a fever. Your symptoms get worse. Your symptoms do not get better within 10 days. Get help right away if: You have a very bad headache. You cannot stop throwing up (vomiting). You have very bad pain or swelling around your face or eyes. You have trouble seeing. You feel confused. Your neck is stiff. You have trouble breathing. Summary Sinusitis is swelling of your sinuses. Sinuses are hollow spaces in the bones around your face. This condition is caused by tissues in your nose that become inflamed or swollen. This traps germs.These can lead to infection. If you were prescribed an antibiotic medicine, take it as told by your doctor. Do not stop taking it even if you start to feel better. Keep all follow-up visits as told by your doctor. This is important. This information is not intended to replace advice given to you by your health care provider. Make sure you discuss any questions you have with your health care provider. Document Released: 03/26/2009 Document Revised: 03/10/2019 Document Reviewed: 03/10/2019 [employer] Patient Education 2020 [employer]. Follow Up Care 08/12/2022 11:36:36 With:Mara BEVERLY MD, FAM Address: [address] [place], [place] [id number]- When: Unknown [facility] 07-29-2022 Hospital Discharge instructions Follow Up Care 05/19/2022 10:40:52 With:Dolores Gray MD Address: When:3 months Comments:Call for sooner apt with new/worsening symptoms [facility]07-05-2022 Hospital Discharge instructions Patient Education 04/25/2022 21:16:41 Nonspecific Chest Pain, Adult Nonspecific Chest Pain, Adult Chest pain can be caused by many different conditions. It can be caused by a condition that is life-threatening and requires treatment right away. It can also be caused by something that is not life-threatening. If you have chest pain, it can be hard to know the difference, so it is important to get help right away to make sure that you do not have a serious condition. Some life-threatening causes of chest pain include: Heart attack. A tear in the body's main blood vessel (aortic dissection). Inflammation around your heart (pericarditis). A problem in the lungs, such as a blood clot (pulmonary embolism) or a collapsed lung (pneumothorax). Some non life-threatening causes of chest pain include: Heartburn. Anxiety or stress. Damage to the bones, muscles, and cartilage that make up your chest wall. Pneumonia or bronchitis. Shingles infection (varicella-zoster virus). Chest pain can feel like: Pain or discomfort on the surface of your chest or deep in your chest. Crushing, pressure, aching, or squeezing pain. Burning or tingling. Dull or sharp pain that is worse when you move, cough, or take a deep breath. Pain or discomfort that is also felt in your back, neck, jaw, shoulder, or arm, or pain that spreads to any of these areas. Your chest pain may come and go. It may also be constant. Your health care provider will do lab tests and other studies to find the cause of your pain. Treatment will depend on the cause of your chest pain. Follow these instructions at home: Medicines Take keiu-lwx-ksgqbkp and prescription medicines only as told by your health care provider. If you were prescribed an antibiotic, take it as told by your health care provider. Do not stop taking the antibiotic even if you start to feel better. Lifestyle Rest as directed by your health care provider. Do not use any products that contain nicotine or tobacco, such as cigarettes and e-cigarettes. If you need help quitting, ask your health care provider. Do not drink alcohol. Make healthy lifestyle choices as recommended. These may include: ?Getting regular exercise. Ask your health care provider to suggest some activities that are safe for you. ?Eating a heart-healthy diet. This includes plenty of fresh fruits and vegetables, whole grains, low-fat (lean) protein, and low-fat dairy products. A dietitian can help you find healthy eating options. ?Maintaining a healthy weight. ?Managing any other health conditions you have, such as high blood pressure (hypertension) or diabetes. ?Reducing stress, such as with yoga or relaxation techniques. General instructions Pay attention to any changes in your symptoms. Tell your health care provider about them or any newsymptoms. Avoid any activities that cause chest pain. Keep all follow-up visits as told by your health care provider. This is important. This includes visits for any further testing if your chest pain does not go away. Contact a health care provider if: Your chest pain does not go away. You feel depressed. You have a fever. Get help right away if: Your chest pain gets worse. You have a cough that gets worse, or you cough up blood. You have severe pain in your abdomen. You faint. You have sudden, unexplained chest discomfort. You have sudden, unexplained discomfort in your arms, back, neck, or jaw. You have shortness of breath at any time. You suddenly start to sweat, or your skin gets clammy. You feel nausea or you vomit. You suddenly feel lightheaded or dizzy. You have severe weakness, or unexplained weakness or fatigue. Your heart begins to beat quickly, or it feels like it is skipping beats. These symptoms may represent a serious problem that is an emergency. Do not wait to see if the symptoms will go away. Get medical help right away. Call your local emergency services (911 in the [place] Do not drive yourself to the hospital. Summary Chest pain can be caused by a condition that is serious and requires urgent treatment. It may also be caused by something that is not life-threatening. If you have chest pain, it is very important to see your health care provider. Your health care provider may do lab tests and other studies to find the cause of your pain. Follow your health care provider's instructions on taking medicines, making lifestyle changes, and getting emergency treatment if symptoms become worse. Keep all follow-up visits as told by your health care provider. This includes visits for any further testing if your chest pain does not go away. This information is not intended to replace advice given to you by your health care provider. Make sure you discuss any questions you have with your health care provider. Document Released: 07/18/2006 Document Revised: 04/10/2019 Document Reviewed: 04/10/2019 [employer] Patient Education 2020 [employer]. Follow Up Care 04/25/2022 16:19:02 With:Mara BEVERLY MD, FAM Address: When: only if needed [facility] [place] 05-23-2022 Hospital Discharge instructions Patient Education 03/13/2022 20:29:28 Asthma Attack Prevention, Adult Asthma Attack Prevention, Adult Although you may not be able to control the fact that you have asthma, you can take actions to prevent episodes of asthma (asthma attacks). These actions include: Creating a written plan for managing and treating your asthma attacks (asthma action plan). Monitoring your asthma. Avoiding things that can irritate your airways or make your asthma symptoms worse (asthma triggers). Taking your medicines as directed. Acting quickly if you have signs or symptoms of an asthma attack. What are some ways to prevent an asthma attack? Create a plan Work with your health care provider to create an asthma action plan. This plan should include: A list of your asthma triggers and how to avoid them. A list of symptoms that you experience during an asthma attack. Information about when to take medicine and how much medicine to take. Information to help you understand your peak flow measurements. Contact information for your health care providers. Daily actions that you can take to control asthma. Monitor your asthma To monitor your asthma: Use your peak flow meter every morning and every evening for 2 3 weeks. Record the results in a journal. A drop in your peak flow numbers on one or more days may mean that you are starting to have anasthma attack, even if you are not having symptoms. When you have asthma symptoms, write them down in a journal. Avoid asthma triggers Work with your health care provider to find out what your asthma triggers are. This can be done by: Being tested for allergies. Keeping a journal that notes when asthma attacks occur and what may have contributed to them. Asking your health care provider whether other medical conditions make your asthma worse. Common asthma triggers include: Dust. Smoke. This includes campfire smoke and secondhand smoke from tobacco products. Pet dander. Trees, grasses or pollens. Very cold, dry, or humid air. Mold. Foods that contain high amounts of sulfites. Strong smells. Engine exhaust and air pollution. Aerosol sprays and fumes from household strategy intern. Household pests and their droppings, including dust mites and cockroaches. Certain medicines, including NSAIDs. Once you have determined your asthma triggers, take steps to avoid them. Depending on your triggers, you may be able to reduce the chance of an asthma attack by: Keeping your home clean. Have someone dust and vacuum your home for you 1 or 2 times a week. If possible, have them use a high-efficiency particulate arrestance (HEPA) vacuum. Washing your sheets weekly in hot water. Using allergy-proof mattress covers and casings on your bed. Keeping pets out of your home. Taking care of mold and water problems in your home. Avoiding areas where people smoke. Avoiding using strong perfumes or odor sprays. Avoid spending a lot of time outdoors when pollen counts are high and on very windy days. Talking with your health care provider before stopping or starting any new medicines. Medicines Take bpct-xjv-idmbote and prescription medicines only as told by your health care provider. Many asthma attacks can be prevented by carefully following your medicine schedule. Taking your medicines correctly is especially important when you cannot avoid certain asthma triggers. Even if you are doing well, do not stop taking your medicine and do not take less medicine. Act quickly If an asthma attack happens, acting quickly can decrease how severe it is and how long it lasts. Take these actions: Pay attention to your symptoms. If you are coughing, wheezing, or having difficulty breathing, do not wait to see if your symptoms go away on their own. Follow your asthma action plan. If you have followed your asthma action plan and your symptoms are not improving, call your health care provider or seek immediate medical care at the nearest hospital. It is important to write down how often you need to use your fast-acting rescue inhaler. You can track how often you use an inhaler in your journal. If you are using your rescue inhaler more often, it may mean that your asthma is not under control. Adjusting your asthma treatment plan may help you to prevent future asthma attacks and help you to gain better control of your condition. How can I prevent an asthma attack when I exercise? Exercise is a common asthma trigger. To prevent asthma attacks during exercise: Follow advice from your health care provider about whether you should use your fast-acting inhaler before exercising. Many people with asthma experience exercise-induced bronchoconstriction (EIB). This condition often worsens during vigorous exercise in cold, humid, or dry environments. Usually, people with EIB can stay very active by using a fast-acting inhaler before exercising. Avoid exercising outdoors in very cold or humid weather. Avoid exercising outdoors when pollen counts are high. Warm up and cool down when exercising. Stop exercising right away if asthma symptoms start. Consider taking part in exercises that are less likely to cause asthma symptoms such as: Indoor swimming. Biking. Walking. Hiking. Playing football. This information is not intended to replace advice given to you by your health care provider. Make sure you discuss any questions you have with your health care provider. Document Released: 09/26/2010 Document Revised: 09/20/2018 Document Reviewed: 03/24/2017 [employer] Patient Education 2020 [employer] Follow Up Care 09/13/2021 10:56:46 With:Mara BEVERLY MD, FAM Address: [address] [place] [id number] When:6 months [facility] Evaluation + Plan note Future Appointments Appointment Date:03/14/2022 10:20:00 AM Scheduled Provider:Mara BEVERLY MD Location:[facility] Appointment Type: Open Future Scheduled Tests Laboratory* TSH With T4fr Reflex 09/13/21 * CBC w/ Auto Diff 09/13/21 * Comprehensive Metabolic Panel 09/13/21 * Lipid Panel 09/13/21 Radiology* [facility]rast [facility] Appointment Date:08/29/2022 10:20:00 AM Scheduled Provider:M[facility]EVERLY MD [facility] Type: Open Future Scheduled Tests Radiology* MRI Shoulder w/o Contrast Right 09/13/21 [facility] Evaluation + Plan note Future Appointments Appointment Date:08/29/2022 10:20:00 AM Scheduled Provider:Mara BEVERLY MD [facility] Type: Open Future Scheduled Tests Radiology* MRI Shoulder w/o Contrast Right 09/13/21 [facility] Evaluation + Plan note Future Appointments Appointment Date:08/29/2022 10:20:00 AM Scheduled Provider:Mara BEVERLY MD Location:[facility] Appointment Type: Open Future Scheduled Tests Radiology* Echo Transthoracic Complete 05/18/22 * NM Myocardial Spect Rest/Stress 2 Day 05/18/22 * MRI Shoulder w/o Contrast Right [facility]13[facility] App[facility]ments Appointment Date:08/29/2022 10:20:00 AM Scheduled Provider:Mara BEVERLY MD [facility] Type:FM Open Appointment Date:09/27/2022 11:45:00 AM Scheduled Provider:Dolores Gray [facility] Type:Cardiology Follow Up (FT) Future Scheduled Tests Radiology* MRI Shoulder w/o Contrast Right [facility]13/[facility] Future Appointments Appointment Date:08/22/2022 08:30:00 AM Scheduled Provider: [facility] Type:Cardiology Nurse Visit (FT) Appointment Date:08/29/2022 10:20:00 AM Scheduled Provider:Mara BEVERLY MD Location:[facility] Appointment Type: Open Appointment Date:09/27/2022 11:45:00 AM Scheduled Provider:Dolores Gray MD [facility] Type:Cardiology Follow Up (FT) Future Scheduled Tests Radiology* MRI Shoulder w/o Contrast Right 09/13/21 [facility] Evaluation + Plan note Future Appointments Appointment Date:09/27/2022 11:45:00 AM Scheduled Provider:Dolores Gray MD [facility] Type:Cardiology Follow Up (FT) Future Scheduled Tests Radiology* MRI Shoulder w/o Contrast Right 09/13/21 [facility] Evaluation + Plan note Future Appointments Appointment Date:03/19/2023 09:40:00 AM Scheduled Provider:Mara BEVERLY MD Location:[facility] Appointment Type: Open [facility] Evaluation + Plan note Future Appointments Appointment Date:04/02/2023 07:30:00 AM Scheduled Provider: Location:[facility] Appointment Type:Surgery FT Future Scheduled Tests Laboratory* TSH With T4fr Reflex 03/23/23 * ALT 03/23/23 * AST 03/23/23 * Lipid Panel 03/23/23 [facility] Evaluation + Plan note Future Appointments Appointment Date:04/02/2023 07:30:00 AM Scheduled Provider: Location:[facility] App[facility]ment Type:[facility]gery FT [facility] Future Appointments Appointment Date:05/12/2024 06:40:00 PM Scheduled Provider:Mara BEVERLY MD Location:[facility] Appointment Type: Open Future Scheduled Tests Laboratory* TSH With T4fr Reflex 12/08/23 * Vitamin D 25 Hydroxy 12/10/23 * CBC w/ Auto Diff 12/08/23 * Comprehensive Metabolic Panel 12/08/23 * Lipid Panel 12/08/23 Radiology* MA Mamm Screen w/CAD if perf and 3D Kenji 12/08/23 [facility] [employer] I/Oaluation + Plan note Future Appointments Appointment Date:05/12/2024 06:40:00 PM Scheduled Provider:Mara BEVERLY MD [facility] Type: Open Appointment Date:05/21/2024 02:15:00 PM Scheduled Provider:Farzad FRANCE MD Location:[facility] Appointment Type:URO New Patient Future Scheduled Tests Laboratory* TSH With T4fr Reflex 12/08/23 * Vitamin D 25 Hydroxy 12/10/23 * CBC w/ Auto Diff 12/08/23 * Comprehensive Metabolic Panel 12/08/23 * Lipid Panel 12/08/23 Radiology* MA Mamm Screen w/CAD if perf and 3D Kenji 12/08/23 [facility] evaluation + Plan note Future Appointments Appointment Date:05/12/2024 06:40:00 PM Scheduled Provider:Mara BEVERLY MD [facility] App[facility] Type: Open Appointment Date:05/21/2024 02:15:00 PM Scheduled Provider:Farzad FRANCE MD Location:[facility] Appointment Type:URO New Patient Future Scheduled Tests Laboratory* HgbA1c 04/14/24 Radiology* MA Mamm Screen w/CAD if perf and 3D Kenji 12/08/23 [facility] App[facility]ments Appointment Date:05/14/2024 12:15:00 PM Scheduled Provider: Location[facility] Appointment Type:MA Screen (FT) Appointment Date:05/14/2024 01:00:00 PM Scheduled Provider: Location:FT.BD Appointment Type:BD Bone Density (FT) Appointment Date:05/21/2024 02:15:00 PM Scheduled Provider:Farzad FRANCE MD Location:[facility] Appointment Type:URO New Patient Appointment Date:08/19/2024 02:30:00 PM Scheduled Provider: Location:[facility] Appointment Type: Medicare Wellness Welcome Appointment Date:08/19/2024 03:40:00 PM Scheduled Provider:Mara BEVERLY MD Location:[facility] Appointment Type: Open Future Scheduled Tests Radiology* BD Bone Density DEXA 05/14/24 * MA Mamm Screen w/CAD if perf and 3D Kenji 05/14/24 [facility] [place] Evaluation + Plan note Future Appointments Appointment Date:05/14/2024 12:15:00 PM Scheduled Provider: Location:.[facility] Appointment Type:MA Screen (FT) Appointment Date:05/14/2024 01:00:00 PM Scheduled Provider: Location:.BD Appointment Type:BD Bone Density () Appointment Date:05/21/2024 02:15:00 PM Scheduled Provider:Farzad FRNACE MD Location:[facility] Appointment Type:URO New Patient Appointment Date:08/19/2024 02:30:00 PM Scheduled Provider: [facility] App[facility] Type:FM Medicare Wellness Welcome Appointment Date:08/19/2024 03:40:00 PM Scheduled Provider:Mara BEVERLY MD [facility] App[facility] Type: Open Diagnostic Tests Pending * Microalbumin Level Urine 05/12/24 * U Protein/Creat Ratio 05/12/24 Future Scheduled Tests Radiology* BD Bone Density DEXA 05/14/24 * MA Mamm Screen w/CAD if perf and 3D Kenji [facility]14/[facility] Future Appointments Appointment Date:05/21/2024 02:15:00 PM Scheduled Provider:Farzad FRANCE MD Location:[facility] Appointment Type:URO New Patient Appointment Date:08/19/2024 02:30:00 PM Scheduled Provider: Location:[facility] Appointment Type:FM Medicare Wellness Welcome Appointment Date:08/19/2024 03:40:00 PM Scheduled Provider:Mara BEVERLY MD Location:[facility] Appointment Type: Open [facility] Evaluation note* Diagnosis Type 2 diabetes mellitus without complication, without long-term current use of insulin ([facility])- Primary Pseudophakia Lens replaced by other means documented in this [facility] N[facility] No data available for this section [facility] No data available for this section [facility] No data available for this section [facility] History of Present Illness * Exten, Carlos Gerber MD - 02/05/2019 2:00 PM EDT Impression: SNOMED CT(R) 1. Charcot's joint of left foot CHARCOT'S JOINT OF FOOT 2. Neuropathy, idiopathic NEUROPATHY The above diagnosis as well as the options for treatment were discussed with Levi in clinic today. I long discussion today with the patient and her sister. She has changes consistent with Charcot neuroarthropathy in her left foot. There is significant degenerative change at multiple joints. From anonsurgical standpoint I would recommend a [place] walker. This could be custom fit for her. I would recommend that she try to find a shoe of adequate height to have on the other side in order to minimize discomfort in her back. If she does not have significant relief from the False Pass walker I would recommend obtaining a CT scan for presurgical planning and considering fusion of multiple joints in the hindfoot and midfoot including the calcaneocuboid, talonavicular, navicular cuneiform, and possible tarsometatarsal joints. She would need to be nonweightbearing for approximately 12 weeks after surgery. After discussion the patient and her sister both agree that she would like to try nonsurgical treatment first. The False Pass walker was ordered. She will have this fitted at [facility] in [place]. She will follow-up after wearing it for several weeks. Levi Sofia was agreeable to the plan and there were no learning barriers encountered. Follow-Up: After wearing the False Pass walker for several weeks. X-rays of the left foot will be performed at that time. Subjective: Levi Sofia is a 58 y.o. female seen as a new patient for left foot and ankle pain. She has a long history of pain in this side. She states that her pain initially began in 2011. She denies any antecedent injury. She does not recall whether it was red and warm or swollen. She was seen initially in the [facility] podiatry department. She was first placed in a cast and then placed in a boot. She states that she was later told that this was not a podiatry issue . She also has a history of back pain. She has seen 2 spine surgeons for this. She initially saw a Dr. Juarez who was an orthopedic spine surgeon. She was told that she had 2 bulging disks. No surgical intervention was recommended. She continued to have the foot pain and later saw Dr. Lima an orthopedic surgeon. She states no treatment was recommended at that time. She then went to a spine surgeon again and Matt Beverly. He is a neurosurgeon. He recently recommended that she have a spinal fusion. She was told that this would not alleviate her foot pain. Due to that she wanted to continue getting injections in the back and set up surgery. She sees Dr. Guidry for this. She had an injection today. She gets one every 3 months. She has been off of work for the last 2 months due to pain in the foot and ankle. She is using a compounding cream in addition to taking diclofenac. She does not recall what is in the compounded cream and does not have it with her today. There are multiple medications including 1 for nerve pain. She thinks gabapentin sounds like something that may be ended. The last person that she saw for her foot was a supply chain generalist by the name of Dr. Wakefield in [place]. Overall for the treatment of her foot and ankle she has never been given a custom brace. She does have a pair of three-quarter length hard podiatry style orthotics. These were prescribed by Dr. gonzlaez. she has also been given an ASO. Aside from when she was in the cast she was never nonweightbearing. She was told by a supply chain generalist in the past that she has neuropathy. She is not a diabetic. She has noknown causes of neuropathy. 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 She is not a smoker. Past Medical History: Diagnosis Date Disease of thyroid gland Hypertension and Past Surgical History: Procedure Laterality Date ELBOW SURGERY Left 2011 scope FOOT SURGERY Right [address] Gonzalez Past medical, past surgical, family history, medications, allergies, and smoking status reviewed and updated as appropriate in [place]. A 13-system review of systems was completed by Levi hart and reviewed by Dr. Carlos Carter during the visit. This has been initialed, dated, and scanned to this encounter. Objective: Vitals: 02/05/19 1407 BP: 120/70 Pulse: 91 Weight: 129.3 kg (285 lb) Height: 5' 10 Body mass index is 40.89 kg/m . General: no acute distress Appearance: Appears stated age. Neurologic: Patient is alert and oriented x3 pleasant and cooperative. Mood and affect: Normal HEENT: normocephalic, attraumatic. Extraocular muscles grossly normal. Pulm: respiratory effort is normal Foot and Ankle - Physical Exam Standing: Alignment: normal Arch: normal Gait: ambulates with a antalgic gait, without an assistive device. Deformities: Equinus Palpation: Tenderness to palpation over the calcaneal cuboid joint, talonavicular joint, and midfoot joints. ROM Ankle: decreased Subtalar: decreased MTP: decreased Muscle/Tendons Strength Tibialis Anterior: 5/5 (full rom against gravity, maximum resistance) Posterior Tibialis: 5/5 (full rom against gravity, maximum resistance)} Peroneals: 5/5 (full rom against gravity, maximum resistance) Achilles: 5/5 (full rom against gravity, maximum resistance) FHL: 5/5 (full rom against gravity, maximum resistance) EHL: 5/5 (full rom against gravity, maximum resistance) Stability Ankle: stable Subtalar: stable 1st MT-Cun: stable Pulses Dorsal Pedis: Present 2+ Tibial Artery: Present 2+ Nerves Tibial Nerve Lateral Plantar: decreased Medial Plantar: decreased Superficial Peroneal: decreased Deep Peroneal: decreased Sural: decreased Saphenous: decreased Skin Intact. No rashes ulcerations or other lesions. Radiographs: Xrays from today's date as well as MRI from 01/29/2019 were reviewed today in clinic and discussed with the patient. A formal read will be perfomed by radiology. They were also interpreted by myself. My findings and impressions can be found below. Radiographs from today's date show significant degenerative change consistent with Charcot at the talonavicular joint as well as the navicular cuneiform joints and the calcaneocuboid joint. Ankle joint appears unaffected. While there is narrowing of the subtalar joint it does not appear to be significantly involved. No acute fractures or dislocations. MRI performed on 01/29/2019 was reviewed as well. This shows significant osteoarthritis with marrow edema and subchondral changes including cystic formation at the talonavicular joint, calcaneocuboid joint, and navicular cuneiform joints. There is also degenerative change at the joints of the midfoot especially the second tarsometatarsal joint. CC: Mara Beverly MD documented in this encounter* Carlos Carter MD - 03/12/2019 10:50 AM EDT Impression: SNOMED CT(R) 1. Charcot's joint of left foot CHARCOT'S JOINT OF FOOT Plan: The above diagnosis as well as the options for treatment were discussed with Levi in clinic today. At this time we recommend the following: She will remain in the False Pass walker and wear the elevated shoe on the contralateral side. I would like to see her back in 6 months for repeat examination and x-rays. I told her that I would likely keep her in this for at least a year. And we can try and get her into bilateral diabetic shoes with orth otics. If she continues to have pain we will discuss fusion once again. If she does have a reconstructive surgery she will need to be nonweightbearing for minimum of 3 months. Levi was agreeable to the plan and there were no learning barriers encountered. Follow-Up: Followup 6 months. New xrays will be needed at the next visit. Subjective: Levi Sofia is here for a follow visit in regards to her left Charcot midfoot deformity. At her last appointment I recommended that she get a False Pass walker. She has that today. She also has an issue with an elevated sole on the contralateral side. She had this done at [facility]. She denies any s ignificant pain in the boot but has not worn it very long. She would like to go back to work on Sunday now that she has her immobilization and device Smoking status, allergies, medications, and non-medications were reviewed and updated as appropriate in [facility]. She is not a current tobacco user. Exam: Vitals: 03/12/19 1007 BP: 146/87 Pulse: 79 Weight: 129.3 kg (285 lb) Height: 5' 10 The patient is awake, alert and orientated x3, and in no apparent distress. Standing: Patient is ambulating in a False Pass walker and shoe with a lift on the contralateral side Palpation: Tenderness to palpation at the dorsal midfoot over the talonavicular joint as well as the navicularcuneiform joints and calcaneocuboid joint. ROM / Strength Ankle is able to dorsiflex past 90 degrees. Strength is grossly intact. Neurovascular Exam Intact pulses. Decreased sensation throughout. Skin Intact. No rashes ulcerations or other lesions Radiology: No new films taken today CC: Mara Beverly MD documented in this encounter* Carlos Carter MD - 2020 10:43 AM EDT Impression: 1. Charcot's joint of left foot 2. Neuropathy, idiopathic Plan: The above diagnosis as well as the options for treatment were discussed with Levi in clinic today. At this time we recommend the following: At her last visit I told her that at this appointment we. Think about coming out of the False Pass walkerand into a diabetic shoe and orthotic. She would like to. I have ordered bilateral extra-depth extra with shoes as well as an accommodative orthotic with trilaminated lining. I also told her that she could undergo a triple arthrodesis to correct her deformity and also to relieve her of her arthritis pain. This actually would be the procedure I would perform on both sides.I discussed the postoperative protocol and the fact that she would be off of work likely at least 3months following the procedure. She would like to think about this. She will follow-up 1 month after she has gotten her shoe and orthotics. Levi was agreeable to the plan and there were no learning barriers encountered. Follow-Up: Follow-up 1 month after obtaining the shoes and orthotics. Subjective: Levi Sofia is here for a follow visit in regards to her left charcot midfoot deformity. She has been using a ute walker. She says her pain is significantly improved in the False Pass walker. She now is having pain on her right side however. She requested x-rays on the right side today. Smoking status, allergies, medications, and non-medications were reviewed and updated as appropriate in Epic. She is not a current tobacco user. Exam: Vitals: 03/09/20 1032 BP: (!) 151/70 Pulse: 69 Weight: 129.3 kg (285 lb) Height: 5' 10 The patient is awake, alert and orientated x3, and in no apparent distress. Standing: Patient is ambulating in a False Pass walker and shoe with a lift on the contralateral side. Standing shehas pes planovalgus deformity Palpation: Tenderness to palpation is greatest on the right foot over the calcaneocuboid joint as well as the sinus Tarsi. On the left foot she has mild tenderness to palpation over the sinus Tarsi. No tenderness to palpation of the talonavicular joints bilaterally. ROM / Strength Ankle is able to dorsiflex past 90 degrees. Strength is grossly intact. Neurovascular Exam Intact pulses bilaterally. Decreased sensation bilaterally. Skin Intact. No rashes ulcerations or other lesions Radiology: Xrays of the left foot were performed today. These show no change in alignment of the midtarsal joint articulations. There is stable destruction at these joints with end-stage degenerative change. Left foot Charcot stable Radiographs of the right foot and ankle were also performed today. Radiographs of the right ankle show no acute fractures or dislocations. Ankle mortise is intact without any widening. Well-preservedjoint space. Radiographs of the right foot were also performed. These show 2 pins in the distal aspect of the first metatarsal likely from prior hallux valgus correction. There is also decompression of the medialeminence. There is arthritic change at the second and third tarsometatarsal joint as well as the talonavicular joint. Significant degenerative change at the talonavicular joint as well as the calcaneocuboid joint. Decreased calcaneal pitch and plantar calcaneal enthesophyte as well as calcificationat the insertion of the Achilles. The Achilles tendon appears intact. There is increased declination of the talus. CC: Mara Beverly MD documented in this encounter* Jaspreet Conti CNP - 2020 2:00 PM EDT ENT New Patient Visit Patient Name: Levi Sofia MR #: [id number] : 1960 Physicians: Mara Beverly MD (Family); Mara Beverly MD (Referring) Chief Complaint/Reason for Visit: Recurrent sinusitis History of Present Illness: Levi Sofia is a 60 y.o. y/o female presenting from PCP with c/o recurrent sinusitis. She is a new patient to our office who presents with concerns for recurrent sinusitis. Patient has history of 2 sinus surgeries in the past, most recently was in [address] Yanez in [facility]. She has long-standing history of allergy/sinus problems for 25-30 years and has been using Zyrtec-D and Flonase for the past 10-15 years which does not provide any relief currently. She also takes Singulair at night, uses Afrin couple times a month, and nasal saline irrigations as needed which help. Symptoms include nasal congestion, rhinorrhea, postnasal drip, throat clearing, fatigue, sinus pressure, bloody/sometime green mucus plugs, and recurrent sinus infections. She reports approximately 6 sinus infections annually requiring antibiotic treatment, her most recent infection was October or November 2019 that was treated with Cefdinir and provides minimal benefit in symptoms. She denies every trying Claritin or Carla in the past. Has had a lot of second hand smoke exposure over the years that she feels has contributed to chronic problems. Has completed allergy testing and S CIT injections for short time approximately 10-15 years ago. She denies snoring, choking, gasping, ear pain/pressure/drainage, changes in hearing, mastoid reactivity, or fevers. Denies being diagnosed with JORDAN, but is fatigued daily and falls asleep easily in mid day. Does have known thyroid disease but reports I just had my levels checked because I thought that may be why I'm always tired, but everything wasgood . History: Past Medical History: Diagnosis Date Disease of thyroid gland Hypertension Past Surgical History: Procedure Laterality Date ELBOW SURGERY Left 2012 scope FOOT SURGERY Right [address] Gonzalez History reviewed. No pertinent family history. Social History Socioeconomic History Marital status: Single Spouse name: Not on file Number of children: Not on file Years of education: Not on file Highest education level: Not on file Occupational History Not on file Social Needs Financial resource strain: Not on file Food insecurity Worry: Not on file Inability: Not on file Transportation needs Medical: Not on file Non-medical: Not on file Tobacco Use Smoking status: Never Smoker Smokeless tobacco: Never Used Substance and Sexual Activity Alcohol use: Never Frequency: Never Drug use: Never Sexual activity: Not on file Lifestyle Physical activity Days per week: Not on file Minutes per session: Not on file Stress: Not on file Relationships Social connections Talks on phone: Not on file Gets together: Not on file Attends alevism service: Not on file Active member of club or organization: Not on file Attends meetings of clubs or organizations: Not on file Relationship status: Not on file Other Topics Concern Not on file Social History Narrative Not on file Allergy Information: I have reviewed the patient's allergies. Allergies Allergen Reactions Augmentin [Amoxicillin-Pot Clavulanate] Hives Chlorzoxazone Moxifloxacin Penicillins Hives Home Medications: Current Outpatient Medications Medication Sig Dispense Refill aspirin 81 MG EC tablet Take 81 mg by mouth daily . atorvastatin (LIPITOR) 10 MG tablet Take 10 mg by mouth daily . bisoprolol-hydrochlorothiazide (ZIAC) 5-6.25 mg per tablet Take 1 tablet by mouth daily . cetirizine (ZYRTEC) 5 MG tablet Take 5 mg by mouth daily . citalopram (CELEXA) 20 MG tablet Take 20 mg by mouth daily . DULoxetine (CYMBALTA) 30 MG capsule Take 30 mg by mouth daily . estradiol (CLIMARA) 0.05 mg/[address] 1 patch on the skin once a week . fluticasone (VERAMYST) 27.5 mcg/actuation nasal spray Instill 2 sprays into each nostril daily . levothyroxine (LEVO-T) 137 MCG tablet Take 137 mcg by mouth once daily . montelukast (SINGULAIR) 10 mg tablet Take 10 mg by mouth nightly . multivitamin (THERAGRAN) per tablet Take 1 tablet by mouth daily . omeprazole (PRILOSEC) 20 MG capsule Take 20 mg by mouth daily . oxybutynin (DITROPAN) 5 MG tablet Take 5 mg by mouth 3 (three) times a day . pregabalin (LYRICA) 75 MG capsule Take 75 mg by mouth 2 (two) times a day . No current facility-administered medications for this visit. ROS: Review of Systems Constitutional: Positive for fatigue. Negative for activity change, appetite change and fever. HENT: Positive for congestion, postnasal drip, rhinorrhea, sinus pressure and sneezing. Negative for ear discharge, ear pain, hearing loss, nosebleeds, sinus pain, sore throat, tinnitus, trouble swallowing and voice change. Eyes: Negative for pain, discharge, redness, itching and visual disturbance. Respiratory: Positive for cough. Negative for apnea, choking, chest tightness, shortness of breath and wheezing. Cardiovascular: Negative for chest pain and palpitations. Gastrointestinal: Negative for nausea and vomiting. Musculoskeletal: Negative for gait problem, myalgias, neck pain and neck stiffness. Wearing boot in office for ankle injury Skin: Negative for color change and rash. Allergic/Immunologic: Positive for environmental allergies (Zyrtec-D and Flonase daily). Negative for immunocompromised state. Neurological: Positive for headaches. Negative for dizziness, seizures, syncope and light-headedness. Hematological: Negative for adenopathy. Psychiatric/Behavioral: Negative for confusion. The patient is not nervous/anxious. Physical Examination: Vital Signs: There were no vitals taken for this visit. Physical Exam Constitutional: She is oriented to person, place, and time. She appears well- developed and well-nourished. She does not appear ill. No distress. HENT: Head: Normocephalic and atraumatic. Head is without abrasion, without contusion and without laceration. Right Ear: Hearing, tympanic membrane, external ear and ear canal normal. No drainage, swelling or tenderness. No foreign bodies. No mastoid tenderness. Tympanic membrane is not perforated and not bulging. Tympanic membrane mobility is normal. No decreased hearing is noted. Left Ear: Hearing, tympanic membrane, external ear and ear canal normal. No drainage, swelling or tenderness. No foreign bodies. No mastoid tenderness. Tympanic membrane is not perforated and not bulging. Tympanic membrane mobility is normal. No decreased hearing is noted. Nose: Mucosal edema and rhinorrhea present. No sinus tenderness, nasal deformity or septal deviation. No epistaxis. No foreign bodies. Right sinus exhibits maxillary sinus tenderness. Right sinus exhibits no frontal sinus tenderness. Left sinus exhibits maxillary sinus tenderness. Left sinus exhibits no frontal sinus tenderness. Mouth/Throat: Uvula is midline and mucous membranes are normal. Mucous membranes are not pale, not dry and not cyanotic. She does not have dentures. No oral lesions. Normal dentition. No lacerations.Oropharyngeal exudate present. No posterior oropharyngeal edema or posterior oropharyngeal erythema. Irritation noted to bilateral nasal septum Eyes: Conjunctivae and EOM are normal. Right eye exhibits no discharge. Left eye exhibits no discharge. No scleral icterus. Neck: Normal range of motion, full passive range of motion without pain and phonation normal. Neck supple. No neck rigidity. Normal range of motion present. Pulmonary/Chest: Effort normal. No respiratory distress. Musculoskeletal: Normal range of motion. Lymphadenopathy: Head (right side): No submental, no submandibular, no tonsillar, no preauricular and no posterior auricular adenopathy present. Head (left side): No submental, no submandibular, no tonsillar, no preauricular and no posterior auricular adenopathy present. She has no cervical adenopathy. Neurological: She is alert and oriented to person, place, and time. Skin: Skin is warm, dry and intact. No rash noted. She is not diaphoretic. No erythema. No pallor. Psychiatric: She has a normal mood and affect. Her speech is normal and behavior is normal. Judgment and thought content normal. Cognition and memory are normal. Assessment and Plan: Levi Sofia is a 60 y.o. y/o female presenting with chronic rhinitis and recurrent sinusitis. Subjective history and physical exam are consistent with symptoms of chronic rhinitis with recurrent sinusitis. She was instructed to stop daily Zyrtec-D and Flonase as they are no longer beneficial and begin daily Carla and Nasacort. She was also instructed to begin daily nasal saline irrigations and continue Singulair nightly. We discussed possible imaging in the future vs possible allergy testing. Patient voiced she would not complete another sinus surgery even if there was pathology that would benefit from surgery. Educated that due to ongoing concerns with COVID19 allergy testing is onhold, but will hopefully be able to pursue this in the future and will discuss in more detail at next visit. She verbalized thorough understanding and agrees with plans of care. Encouraged to contactour office with any signs of sinus infection or other concerns prior to next visit. Follow-up in 4-6 weeks for evaluation of symptoms or sooner with any new or changing concerns. Diagnoses and all orders for this visit: Chronic rhinitis - fexofenadine (CARLA) 180 MG tablet; Take 1 (one) tablet (180 mg total) by mouth daily . - triamcinolone (NASACORT) 55 mcg nasal inhaler; Instill 2 (two) sprays into each nostril daily . Acute recurrent frontal sinusitis - Ambulatory referral to ENT Fatigue, unspecified type Jaspreet Conti CNP 03/09/20 documented in this encounter* Carlos Carter MD - 06/14/2020 11:04 AM EDT Impression: 1. Charcot's joint of left foot 2. Neuropathy, idiopathic Plan: The above diagnosis as well as the options for treatment were discussed with Levi in clinic today. At this time we recommend the following: I once again recommended surgery including talonavicular and calcaneocuboid fusion bilaterally. This patient states that she is not ready because she does not have adequate FMLA available. Since he is not interested in surgery I recommended intra-articular steroid injections in the talonavicular and calcaneocuboid joints. She can check with her pain physician Dr. Guidry to see if he does these. If not we will place an order for Dr. Ochoa to do them. In addition she has bilateral semirigid orthotics but does not have a try laminated lining. These were fashioned at [employer]. She also does not have relief from her metatarsal pad. She needs togo in for revision of the orthotics. Levi was agreeable to the plan and there were no learning barriers encountered. Follow-Up: As needed Subjective: Levi Sofia is here for a follow visit in regards to her bilateral talonavicular and calcaneocuboidarthritis with history of Charcot. She has new orthotics. She wants to know if they are made appropriately. In addition she states she has been having significant pain. She is using diclofenac. She has been off of work because she has to stand for 8-hour shifts. She is here with her sister today. She is wondering if there is anything else that can be done. Smoking status, allergies, medications, and non-medications were reviewed and updated as appropriate in Epic. She is not a current tobacco user. Exam: Vitals: 06/14/20 1039 BP: 114/80 Pulse: 73 Weight: 124.3 kg (274 lb) Height: 5' 10 The patient is awake, alert and orientated x3, and in no apparent distress. Standing: She is ambulating in regular shoes with orthotics. There is no try laminated lining on them. Palpation: Tenderness to palpation is greatest on the right foot over the calcaneocuboid joint as well as the sinus Tarsi. On the left foot she has tenderness to palpation over the sinus Tarsi and calcaneocuboid joint. She is tender at the talonavicular joints bilaterally today. ROM / Strength Ankle is able to dorsiflex past 90 degrees. Strength is grossly intact. Neurovascular Exam Intact pulses bilaterally. Decreased sensation bilaterally. Skin Intact. No rashes ulcerations or other lesions Radiology: None performed CC: Mara Beverly MD documented in this encounter* Senait Ochoa MD - 07/13/2020 10:10 AM EDT OFFICE CONSULTATION NOTE [facility] [address]) [facility] [address] [facility] [id number] Physicians: Mara Beverly MD (Family); Carlos Carter MD (Referring) Subjective: Levi Sofia is a 60 y.o. female seen in the office today for evaluation for bilateral foot steroid injection. HPI: Ms. Sofia is a 60-year-old female with past medical history including hypertension, hyperlipidemia, asthma, peripheral neuropathy, and chronic foot pain. Patient states she has had left foot and anklepain for nearly 10 years and in the past year has developed right midfoot pain as well. Patient additionally complains of low back pain and has had steroid injections for this. She has seen several supply chain generalist and orthopedic surgeons in the past for her foot and back pain. Most recently, she has been seen by Dr. Carter since January 2019 for her foot pain. Patient has MRI and radiographic imaging of the left foot which demonstrates advanced degenerative changes at the talonavicular, calcaneocuboid, and naviculocuneiform joints consistent with Charcot foot. Right foot radiographs demonstrate less severe degenerative changes at the talonavicular and calcaneocuboid joints. Patient has declined definitive surgical therapy of the left foot. Patient was fitted with a False Pass walker for the left foot which did improve her symptoms for a time. She then transitioned to a diabetic shoe and orthotic earlier this year. Unfortunately, patient has had worsening of her foot pain and has been unable to workrecently due to this. Plan was made for revision of her orthotics, and recommendation was made for talonavicular and calcaneocuboid intra-articular steroid injection. Patient has been referred to my office to be evaluated for this. In office today, patient reports significant bilateral foot and ankle pain, greater on the left than the right. She does describe numbness in her bilateral feet. She also reports chronic low back pain and is scheduled for another back injection in the near future. She has no other complaints at hervisit today. Assessment & Plan: Charcot's joint of left foot 50-year-old female with history of bilateral chronic foot pain, left greater than right, and Charcot foot on the left, who has been referred to my office to be evaluated for fluoroscopic guided intra-articular steroid injection. I have reviewed the patient's imaging. Patient has advanced degenerative changes of the left talonavicular, calcaneocuboid, and naviculocuneiform joints with appearance of Charcot foot. On the right she has moderate degenerative changes at the talonavicular and calcaneocuboid joints. These likely represent the etiology of patient's bilateral foot pain. Fluoroscopic guided intra-articular injection of steroid into the bilateral talonavicular and calcaneocuboid jointsis appropriate and indicated. Due to the severity of her degenerative changes, I anticipate the procedure to be technically challenging, particularly for the left talonavicular joint which is particularly affected. I discussed this procedure with the patient, including risk, benefits, and alternatives. All questions were answered. She wishes to proceed with fluoroscopic guided intra-articular steroid injection of the bilateral talonavicular and calcaneocuboid joints. Informed written consent was obtained. Her procedure has been scheduled for 07/15/2020. Follow Up Ordered: Return in 2 days (on 07/15/2020) for Bilateral foot steroid injection. Prior to Admission medications Medication Sig Start Date End Date Taking? Authorizing Provider aspirin 81 MG EC tablet Take 81 mg by mouth daily . Yes Historical Provider, atorvastatin (LIPITOR) 10 MG tablet Take 10 mg by mouth daily . Yes Historical Provider, bisoprolol-hydrochlorothiazide (ZIAC) 5-6.25 mg per tablet Take 1 tablet by mouth daily . Yes Historical Provider, citalopram (CELEXA) 20 MG tablet Take 20 mg by mouth daily . Yes Historical Provider, DULoxetine (CYMBALTA) 30 MG capsule Take 30 mg by mouth daily . Yes Historical Provider, fexofenadine (CARLA) 180 MG tablet Take 1 (one) tablet (180 mg total) by mouth daily . 03/09/20 07/13/20 Yes Jaspreet Conti CNP levothyroxine (LEVO-T) 137 MCG tablet Take 137 mcg by mouth once daily . Yes Historical Provider, montelukast (SINGULAIR) 10 mg tablet Take 10 mg by mouth nightly . Yes Historical Provider, multivitamin (THERAGRAN) per tablet Take 1 tablet by mouth daily . Yes Historical Provider, omeprazole (PRILOSEC) 20 MG capsule Take 20 mg by mouth daily . Yes Historical Provider, oxybutynin (DITROPAN) 5 MG tablet Take 5 mg by mouth daily . Yes Historical Provider, sulfamethoxazole-trimethoprim (BACTRIM DS,SEPTRA DS) 800-160 mg per tablet 2 (two) times a day . 07/06/20 Yes Historical Provider, SUMAtriptan (IMITREX) 100 MG tablet Take 100 mg by mouth every 2 (two) hours as needed . 06/12/20 Yes Historical Provider, Symbicort 160-4.5 mcg/actuation inhaler as needed . 07/09/20 Yes Historical Provider, triamcinolone (NASACORT) 55 mcg nasal inhaler Instill 2 (two) sprays into each nostril daily . 03/09/20 03/09/21 Yes Jaspreet Conti CNP cetirizine (ZYRTEC) 5 MG tablet Take 5 mg by mouth daily . Historical Provider, estradiol (CLIMARA) 0.05 mg/[address] 1 patch on the skin once a week . Historical Provider, fluticasone (VERAMYST) 27.5 mcg/actuation nasal spray Instill 2 sprays into each nostril daily . Historical Provider, pregabalin (LYRICA) 75 MG capsule Take 75 mg by mouth 2 (two) times a day . Historical Provider, Histories: Past Medical History: Diagnosis Date Asthma Disease of thyroid gland Hyperlipidemia Hypertension Past Surgical History: Procedure Laterality Date CV IR INTERVENTIONAL RADIOLOGY Bilateral 07/15/2020 Procedure: VR Epidural Steroid Inj-B/L TALONAVICULAR AND CALCANEOCUBOID JOINT INJECTION; Surgeon: Senait Ochoa MD; Location: IR LAB; Service: Interventional Radiology ELBOW SURGERY Left 2011 scope FOOT SURGERY Right [address] Gonzalez Family History Problem Relation Age of Onset Heart disease Mother Stroke Father Social History Tobacco Use Smoking status: Never Smoker Smokeless tobacco: Never Used Substance Use Topics Alcohol use: Never Frequency: Never Drug use: Never Allergies Allergen Reactions Augmentin [Amoxicillin-Pot Clavulanate] Hives Chlorzoxazone Moxifloxacin Penicillins Hives Review of Systems Constitution: Negative for chills, fever, malaise/fatigue, night sweats, weight gain and weight loss. HENT: Negative for congestion, ear pain and sore throat. Eyes: Negative for blurred vision, double vision, pain and visual disturbance. Cardiovascular: Negative for chest pain, claudication, dyspnea on exertion, leg swelling, orthopneaand palpitations. Respiratory: Negative for cough, hemoptysis and shortness of breath. Hematologic/Lymphatic: Negative for bleeding problem. Does not bruise/bleed easily. Skin: Negative for dry skin, itching and rash. Musculoskeletal: Positive for arthritis, back pain and joint pain. Negative for muscle weakness. Left greater than right foot pain. Gastrointestinal: Negative for abdominal pain, change in bowel habit, constipation, diarrhea, hematochezia, melena, nausea and vomiting. Genitourinary: Negative for dysuria, frequency, hematuria, nocturia and urgency. Neurological: Positive for numbness (feet). Negative for focal weakness, headaches, paresthesias and sensory change. Psychiatric/Behavioral: Negative for depression. The patient does not have insomnia and is not nervous/anxious. Overview of Problems Addressed: Problem Charcot's Joint of Left Foot Added automatically from request for surgery [id number] Objective: Vitals: BP 140/75 (BP Location: Left arm) Pulse 67 Ht 5' 10 Wt 126.1 kg (278 lb) BMI 39.89 kg/m Physical Exam Constitutional: She is oriented to person, place, and time. She appears well- developed and well-nourished. No distress. HENT: Head: Normocephalic and atraumatic. Nose: Nose normal. Eyes: Conjunctivae, EOM and lids are normal. Right eye exhibits no discharge. Left eye exhibits no discharge. No scleral icterus. Neck: Normal range of motion. Neck supple. Carotid bruit is not present. No thyromegaly present. Cardiovascular: Normal rate, regular rhythm and normal pulses. Exam reveals no gallop and no friction rub. No murmur heard. Pulmonary/Chest: Effort normal and breath sounds normal. No respiratory distress. She has no wheezes. She has no rales. Abdominal: Soft. Bowel sounds are normal. She exhibits no distension and no mass. There is no hepatosplenomegaly. There is no abdominal tenderness. There is no rebound and no guarding. Musculoskeletal: General: Tenderness (dorsal hindfoot) present. No edema. Left ankle: She exhibits decreased range of motion. Lymphadenopathy: She has no cervical adenopathy. Neurological: She is alert and oriented to person, place, and time. A sensory deficit (bilateral feet) is present. No cranial nerve deficit. Gait normal. Skin: Skin is warm and intact. No rash noted. No erythema. Psychiatric: She has a normal mood and affect. Her behavior is normal. Vitals reviewed. 1. Charcot's joint of left foot 2. Neuropathy, idiopathic 3. Pain Senait Ochoa MD 07/18/2020 documented in this encounter* Exten, Carlos Gerber MD - 09/04/2019 8:30 AM EST Impression: 1. Charcot's joint of left foot 2. Neuropathy, idiopathic Plan: The above diagnosis as well as the options for treatment were discussed with Levi in clinic today. At this time we recommend the following: I recommend she continue in the [place] walker. She will follow-up in 6 months with new repeat x-rays of the left foot. We discussed that after that point time she can either try to get back into regular footwear or shecan continue wearing the [place] walker lifelong. Levi was agreeable to the plan and there were no learning barriers encountered. Follow-Up: Followup 6 months. New xrays will be needed at the next visit. Subjective: Levi Sofia is here for a follow visit in regards to her left charcot midfoot deformity. She has been using a ute walker. She says her pain is significantly improved in the [place] walker. Smoking status, allergies, medications, and non-medications were reviewed and updated as appropriate in Epic. She is not a current tobacco user. Exam: Vitals: 09/04/19 0831 BP: 147/84 Pulse: (!) 59 Weight: 129.3 kg (285 lb) Height: 5' 10 The patient is awake, alert and orientated x3, and in no apparent distress. Standing: Patient is ambulating in a [place] walker and shoe with a lift on the contralateral side Palpation: Tenderness to palpation at the dorsal midfoot over the talonavicular joint as well as the navicularcuneiform joints and calcaneocuboid joint. ROM / Strength Ankle is able to dorsiflex past 90 degrees. Strength is grossly intact. Neurovascular Exam Intact pulses. Decreased sensation throughout. Skin Intact. No rashes ulcerations or other lesions Radiology: Xrays of the left foot were performed today. These show no change in alignment of the midtarsal joint articulations. There is stable destruction at these joints with end-stage degenerative change. Left foot Charcot stable CC: Mara Beverly MD documented in this encounter* Javier Fischer MD - 06/02/2020 5:13 PM EDT Subjective: Patient ID: Levi Sofia is a 60 y.o. female. Chief Complaint Patient presents with Follow-up CT Sinus Review HPI my reevaluation along with CT of the sinuses review was requested due to refractory symptoms. Reportedly, patient had been experiencing supraorbital and retro-orbital pressure and pain, nasal congestion for many years. In fact, she had initial endonasal surgery several years ago, this was followed by revision surgery with no improvement of her symptoms. Patient continued to be symptomatic despite adequate medical management including but not limited to normal saline nasal irrigations, several courses of proper antibiotics in the last 3 month, antihistamine, leukotriene inhibitors and nasal steroids for seasonal allergy exacerbations. She also has bronchial asthma and at some point was treated with allergy shots. The following portions of the patient's history were reviewed and updated as appropriate: allergies, current medications, past family history, past medical history, past social history, past surgicalhistory and problem list. Review of Systems Constitutional: Positive for activity change and fatigue. Negative for appetite change, chills, diaphoresis, fever and unexpected weight change. HENT: Positive for congestion, facial swelling, sinus pressure, sneezing and sore throat. Negative for dental problem, ear discharge, ear pain, hearing loss, mouth sores, nosebleeds, postnasal drip, rhinorrhea, sinus pain, tinnitus, trouble swallowing and voice change. Eyes: Negative for pain, discharge, itching and visual disturbance. Respiratory: Positive for cough. Negative for apnea, choking, chest tightness, shortness of breath,wheezing and stridor. Cardiovascular: Negative for chest pain. Gastrointestinal: Negative for abdominal distention. Endocrine: Negative for cold intolerance and heat intolerance. Genitourinary: Negative. Musculoskeletal: Positive for arthralgias, back pain and joint swelling. Negative for gait problem,myalgias, neck pain and neck stiffness. Skin: Negative. Allergic/Immunologic: Positive for environmental allergies. Negative for food allergies and immunocompromised state. Neurological: Positive for headaches. Negative for dizziness, facial asymmetry, light-headedness and numbness. Hematological: Negative for adenopathy. Psychiatric/Behavioral: Negative. Objective:BP 146/82 Pulse 71 Ht 5' 10 Wt 124.5 kg (274 lb 8 oz) SpO2 96% BMI 39.39 kg/m Physical Exam Constitutional: She is oriented to person, place, and time. She appears well- developed and well-nourished. No distress. HENT: Head: Normocephalic and atraumatic. Head is without abrasion, without contusion and without laceration. Right Ear: Tympanic membrane, external ear and ear canal normal. No drainage, swelling or tenderness. No mastoid tenderness. Tympanic membrane is not perforated. Tympanic membrane mobility is normal.No middle ear effusion. No decreased hearing is noted. Left Ear: Tympanic membrane and external ear normal. No drainage, swelling or tenderness. No mastoid tenderness. Tympanic membrane is not perforated. Tympanic membrane mobility is normal. No middle ear effusion. No decreased hearing is noted. Nose: No mucosal edema, rhinorrhea, nose lacerations, sinus tenderness, nasal deformity, septal deviation or nasal septal hematoma. No epistaxis. No foreign bodies. Right sinus exhibits no maxillary sinus tenderness and no frontal sinus tenderness. Left sinus exhibits no maxillary sinus tenderness and no frontal sinus tenderness. Mouth/Throat: Uvula is midline, oropharynx is clear and moist and mucous membranes are normal. She does not have dentures. No oral lesions. No trismus in the jaw. Normal dentition. No dental abscesses, uvula swelling, lacerations or dental caries. No oropharyngeal exudate, posterior oropharyngeal edema, posterior oropharyngeal erythema or tonsillar abscesses. Eyes: Pupils are equal, round, and reactive to light. Conjunctivae and EOM are normal. Right eye exhibits no discharge. Left eye exhibits no discharge. No scleral icterus. Neck: Trachea normal, normal range of motion and phonation normal. Neck supple. No JVD present. No tracheal deviation present. No thyroid mass and no thyromegaly present. Cardiovascular: Normal rate, regular rhythm, normal heart sounds and intact distal pulses. Pulmonary/Chest: No stridor. No respiratory distress. She has no wheezes. She has no rales. She exhibits no tenderness. Abdominal: Soft. Bowel sounds are normal. She exhibits no distension. There is no abdominal tenderness. Musculoskeletal: Normal range of motion. Lymphadenopathy: She has no cervical adenopathy. Right cervical: No superficial cervical, no deep cervical and no posterior cervical adenopathy present. Left cervical: No superficial cervical, no deep cervical and no posterior cervical adenopathy present. Neurological: She is alert and oriented to person, place, and time. No cranial nerve deficit. Coordination normal. Skin: Skin is warm and dry. No rash noted. She is not diaphoretic. No erythema. Psychiatric: She has a normal mood and affect. Her behavior is normal. Judgment and thought contentnormal. I had personally reviewed recent CT sinuses images, performed in the OSH with the patient.The studyhad revealed agenesis of the frontal sinuses, no opacification of maxillary, ethmoidal and sphenoidal sinuses with satisfactory antrostomy, no obstructing nasal septum deviation or other abnormalities. Assessment/Plan: Frequent but episodic periorbital and retro-orbital pressure symptoms are most likely associated with upper respiratory allergic syndrome. No endoscopic or radiological evidence of surgically significant sinonasal problems. I had suggested allergy skin testing and subsequent subcutaneous immunotherapy in addition to current maximal medical management of allergies and this was arranged to be done in our office. I had spent some extra time to explain and demonstrated to the patient our findings and treatment plan. All her questions were answered appropriately to the level of her satisfaction. She had expressed comprehensive understanding and was in agreement with suggested plan. 1. History functional endoscopic sinus surgery (FESS) with revision 2. Sinus pressure 3. Chronic allergic rhinitis 4. Fatigue, unspecified type No orders of the defined types were placed in this encounter. documented in this encounter* Jaspreet Conti CNP - 04/20/2020 1:30 PM EDT ENT Clinic Follow up Note History of Present Illness Levi Sofia is a 60 y.o. y/o female presents for follow up regarding chronic rhinitis. She is a known patient to our office who presents for follow-up after changing treatment strategy for suspected chronic rhinitis. Patient previously instructed to begin daily Carla, Nasacort, and nasal saline irrigations and has been doing this for 4-6 weeks. She reports symptoms are minimally improved with change in medication along with nasal saline irrigations. There is also history of recurrent sinusitis that requires antibiotic treatment. She reports approximately 6 sinus infections annually requiring antibiotic treatment, her most recent infection was October or November 2019 that wastreated with Cefdinir and provides minimal benefit in symptoms. Patient has history of 2 sinus surge yesi, most recent in 2011. Has completed allergy testing and S CIT injections for short time approximately 10-15 years ago. Ongoing symptoms include sinus pressure, headaches, nasal congestion, and teeth pain. Last few weeks was having teeth pain and left nasal sore that was treated with Clindamycin and Mupirocin ointment. Reports resolution in symptoms, but is having right sided nasal irritationwith scant blood tinged mucus. We discussed possible allergy testing but unfortunately patient is on beta-miki medication which disqualifies her due to our office policy. Allergies Allergen Reactions Augmentin [Amoxicillin-Pot Clavulanate] Hives Chlorzoxazone Moxifloxacin Penicillins Hives Past Medical History: Diagnosis Date Disease of thyroid gland Hypertension Social History Socioeconomic History Marital status: Single Spouse name: Not on file Number of children: Not on file Years of education: Not on file Highest education level: Not on file Occupational History Not on file Social Needs Financial resource strain: Not on file Food insecurity Worry: Not on file Inability: Not on file Transportation needs Medical: Not on file Non-medical: Not on file Tobacco Use Smoking status: Never Smoker Smokeless tobacco: Never Used Substance and Sexual Activity Alcohol use: Never Frequency: Never Drug use: Never Sexual activity: Not on file Lifestyle Physical activity Days per week: Not on file Minutes per session: Not on file Stress: Not on file Relationships Social connections Talks on phone: Not on file Gets together: Not on file Attends alevism service: Not on file Active member of club or organization: Not on file Attends meetings of clubs or organizations: Not on file Relationship status: Not on file Other Topics Concern Not on file Social History Narrative Not on file No family history on file. Past Surgical History: Procedure Laterality Date ELBOW SURGERY Left 2012 scope FOOT SURGERY Right [address] Gonzalez The following systems were reviewed and revealed the following in addition to any already discussedin the HPI: Review of Systems Constitutional: Negative for activity change, appetite change, fatigue and fever. HENT: Positive for congestion, nosebleeds, postnasal drip, rhinorrhea, sinus pressure and sneezing.Negative for ear discharge, ear pain, hearing loss, sinus pain, sore throat, tinnitus, trouble swallowing and voice change. Eyes: Negative for pain, discharge, redness, itching and visual disturbance. Respiratory: Negative for apnea, cough, choking, chest tightness, shortness of breath and wheezing. Cardiovascular: Negative for chest pain and palpitations. Gastrointestinal: Negative for nausea and vomiting. Musculoskeletal: Negative for gait problem, myalgias, neck pain and neck stiffness. Wearing boot in office for ankle injury Skin: Negative for color change and rash. Allergic/Immunologic: Positive for environmental allergies (Carla, Nasacort and nasal saline irrigations). Negative for immunocompromised state. Neurological: Positive for headaches. Negative for dizziness, seizures, syncope and light-headedness. Hematological: Negative for adenopathy. Psychiatric/Behavioral: Negative for confusion. The patient is not nervous/anxious. Physical Exam Vitals: 04/20/20 1351 BP: (!) 151/85 Pulse: 61 SpO2: 99% Weight: 121.1 kg (267 lb) Height: 5' 10 Physical Exam Constitutional: She is oriented to person, place, and time. She appears well- developed and well-nourished. She does not appear ill. No distress. HENT: Head: Normocephalic and atraumatic. Head is without abrasion, without contusion and without laceration. Right Ear: Hearing, tympanic membrane, external ear and ear canal normal. No drainage, swelling or tenderness. No foreign bodies. No mastoid tenderness. Tympanic membrane is not perforated and not bulging. Tympanic membrane mobility is normal. No decreased hearing is noted. Left Ear: Hearing, tympanic membrane, external ear and ear canal normal. No drainage, swelling or tenderness. No foreign bodies. No mastoid tenderness. Tympanic membrane is not perforated and not bulging. Tympanic membrane mobility is normal. No decreased hearing is noted. Nose: No mucosal edema, rhinorrhea, sinus tenderness, nasal deformity or septal deviation. No epistaxis. No foreign bodies. Right sinus exhibits no maxillary sinus tenderness and no frontal sinus tenderness. Left sinus exhibits no maxillary sinus tenderness and no frontal sinus tenderness. Mouth/Throat: Uvula is midline and mucous membranes are normal. Mucous membranes are not pale, not dry and not cyanotic. She does not have dentures. No oral lesions. Abnormal dentition. No lacerations. No oropharyngeal exudate, posterior oropharyngeal edema or posterior oropharyngeal erythema. Irritation noted to right anterior nasal septum. Bilateral nares patent with good air flow with sniff test Eyes: Conjunctivae and EOM are normal. Right eye exhibits no discharge. Left eye exhibits no discharge. No scleral icterus. Neck: Normal range of motion, full passive range of motion without pain and phonation normal. Neck supple. No neck rigidity. Normal range of motion present. Pulmonary/Chest: Effort normal. No respiratory distress. Musculoskeletal: Normal range of motion. Lymphadenopathy: Head (right side): No submental, no submandibular, no tonsillar, no preauricular and no posterior auricular adenopathy present. Head (left side): No submental, no submandibular, no tonsillar, no preauricular and no posterior auricular adenopathy present. She has no cervical adenopathy. Neurological: She is alert and oriented to person, place, and time. Skin: Skin is warm, dry and intact. No rash noted. She is not diaphoretic. No erythema. No pallor. Psychiatric: She has a normal mood and affect. Her speech is normal and behavior is normal. Judgment and thought content normal. Cognition and memory are normal. Assessment and Plan: Levi Sofia is a 60 y.o. y/o female who presents with chronic rhinitis. Patient reports continue chronic rhinitis symptoms despite maximal medical management of Carla, Nasacort, Singulair and nasal saline irrigations. There is long-standing history of sinus issues in the past. Patient voiced wanting to obtain additional CT imaging of sinuses to look for underlying sinus disease or other concerns. She is employed at [employer] and would like to haveCT completed there. She was instructed to get copy of CT scan and bring to next follow-up with Dr. Maza to review. Instructed to use mupirocin ointment to right nasal passage for irritation and to hold Nasacort for a few days to allow tissue to heal. Educated that if CT sinus non concerning then medical management would be recommended vs possible referral for allergy testing due to being on chronic beta miki therapy. She verbalized understanding and agrees with plans Follow-up in [address] sinus review or sooner with any new or changing concerns. Diagnoses and all orders for this visit: Recurrent sinusitis - CT Sinus; Future Chronic rhinitis Jaspreet Conti CNP 04/20/20 documented in this encounter Assessments Diagnosis Charcot's joint of left foot- Primary Neuropathy, idiopathic Other specified idiopathic peripheral neuropathy Diagnosis Charcot's joint of left foot- Primary Diagnosis Pain Generalized pain Diagnosis Charcot's joint of left foot Neuropathy, idiopathic Other specified idiopathic peripheral neuropathy Diagnosis Chronic rhinitis Acute recurrent frontal sinusitis Fatigue, unspecified type Diagnosis Pain Generalized pain Diagnosis Charcot's joint of left foot- Primary Neuropathy, idiopathic Other specified idiopathic peripheral neuropathy Diagnosis Charcot's joint of left foot- Primary Diagnosis Charcot's joint of left foot- Primary Neuropathy, idiopathic Other specified idiopathic peripheral neuropathy Pain Generalized pain Diagnosis Charcot's joint of left foot Diagnosis Pain Generalized pain Diagnosis History functional endoscopic sinus surgery (FESS) with revision Sinus pressure Other diseases of nasal cavity and sinuses Chronic allergic rhinitis Fatigue, unspecified type Diagnosis Recurrent sinusitis Unspecified sinusitis (chronic) Chronic rhinitis Advance Directives No Advanced Directives Records FoundDocuments on File Type Date Recorded Patient Director Call Center Sales Expl anation Advance Directives and Livin g Will 03/12/2019 10:07 AM Documents on File Type Date Recorded Patient Director Call Center Sales Expl anation Advance Directives and Livin g Will 2020 10:32 AM Documents on File Type Date Recorded Patient Director Call Center Sales Expl anation Advance Directives and Livin g Will 2020 10:32 AM Documents on File Type Date Recorded Patient Director Call Center Sales Expl anation Advance Directives and Livin g Will 09/04/2019 8:30 AM Summary Purpose Family History No Family History Records FoundNo Family History Records FoundNo Family History Records FoundNo Family History Records FoundNo Family History Records Found No data available for this section No data available for this section No data available for this section No data available for this section No Family History Records FoundNo Family History Records FoundNo Family History Records FoundNo Family History Records FoundNo Family History Records FoundNo Family History Records FoundNo Family History Records FoundNo Family History Records Found No data available for this section No data available for this section No Family History Records Found No data available for this section No Family History Records FoundNo Family History Records FoundNo Family History Records FoundNo Family History Records FoundNo Family History Records Found No data available for this section No data available for this section No Family History Records Found No data available for this section No Family History Records FoundNo Family History Records FoundNo Family History Records FoundNo Family History Records Found Instructions * Patient Instructions* Eli Riddle MA - 07/13/2020 10:00 AM EDT How to contact your Care Team: Provider: Senait Ochoa MD Nurse: Sabrina Rolon RN In case of an emergency please call 911. When in need of refills please call the phone number listed above. Please include medication name, pharmacy name and specify 30 or 90 day supply Please check with your pharmacy within 24 hours of your request for refill. You must follow up as directed to continue current refills. Thank you! documented in this encounter* Patient Instructions* Javier Fischer MD - 06/02/2020 5:20 PM EDT Allergies: Care Instructions Your Care Instructions Allergies occur when your body's defense system (immune system) overreacts to certain substances. The immune system treats a harmless substance as if it were a harmful germ or virus. Many things can cause this overreaction, including pollens, medicine, food, dust, animal dander, and mold. Allergies can be mild or severe. Mild allergies can be managed with home treatment. But medicine may be needed to prevent problems. Managing your allergies is an important part of staying healthy. Your doctor may suggest that you have allergy testing to help find out what is causing your allergies. When you know what things trigger your symptoms, you can avoid them. This can prevent allergy symptoms and other health problems. For severe allergies that cause reactions that affect your whole body (anaphylactic reactions), your doctor may prescribe a shot of epinephrine to carry with you in case you have a severe reaction. Learn how to give yourself the shot and keep it with you at all times. Make sure it is not . Follow-up care is a mayorga part of your treatment and safety. Be sure to make and go to all appointments, and call your doctor if you are having problems. It's also a good idea to know your test resultsand keep a list of the medicines you take. How can you care for yourself at home? If you have been told by your doctor that dust or dust mites are causing your allergy, decrease thedust around your bed: ? Wash sheets, pillowcases, and other bedding in hot water every week. ? Use dust-proof covers for pillows, duvets, and mattresses. Avoid plastic covers because they teareasily and do not breathe. Wash as instructed on the label. ? Do not use any blankets and pillows that you do not need. ? Use blankets that you can wash in your washing machine. ? Consider removing drapes and carpets, which attract and hold dust, from your bedroom. If you are allergic to house dust and mites, do not use home humidifiers. Your doctor can suggest ways you can control dust and mites. Look for signs of cockroaches. Cockroaches cause allergic reactions. Use cockroach baits to get ridof them. Then, clean your home well. Cockroaches like areas where grocery bags, newspapers, empty bottles, or cardboard boxes are stored. Do not keep these inside your home, and keep trash and food containers sealed. Seal off any spots where cockroaches might enter your home. If you are allergic to mold, get rid of furniture, rugs, and drapes that smell musty. Check for mold in the bathroom. If you are allergic to outdoor pollen or mold spores, use air-conditioning. Change or clean all filters every month. Keep windows closed. If you are allergic to pollen, stay inside when pollen counts are high. Use a vacuum mud cleaner operator with aHEPA filter or a double-thickness filter at least two times each week. Stay inside when air pollution is bad. Avoid paint fumes, perfumes, and other strong odors. Avoid conditions that make your allergies worse. Stay away from smoke. Do not smoke or let anyone else smoke in your house. Do not use fireplaces or wood- burning stoves. If you are allergic to your pets, change the air filter in your furnace every month. Use high-efficiency filters. If you are allergic to pet dander, keep pets outside or out of your bedroom. Old carpet and cloth furniture can hold a lot of animal dander. You may need to replace them. When should you call for help? Give an epinephrine shot if: You think you are having a severe allergic reaction. You have symptoms in more than one body area, such as mild nausea and an itchy mouth. After giving an epinephrine shot call 911, even if you feel better. [id number] if: You have symptoms of a severe allergic reaction. These may include: ? Sudden raised, red areas (hives) all over your body. ? Swelling of the throat, mouth, lips, or tongue. ? Trouble breathing. ? Passing out (losing consciousness). Or you may feel very lightheaded or suddenly feel weak, confused, or restless. You have been given an epinephrine shot, even if you feel better. Call your doctor now or seek immediate medical care if: You have symptoms of an allergic reaction, such as: ? A rash or hives (raised, red areas on the skin). ? Itching. ? Swelling. ? Belly pain, nausea, or vomiting. Watch closely for changes in your health, and be sure to contact your doctor if: You do not get better as expected. Where can you learn more? Log into your personal health record on [email or web address] and enter W171 in the Education box to learn more about Allergies: Care Instructions. Current as of: July 28, 2019 Content Version: 12. [email or web address]. Care instructions adapted under license by your healthcare professional. If you have questions about a medical condition or this instruction, always ask your healthcare professional. [email or web address] disclaims any warranty or liability for your use of this information. documented in this encounter Reason for Referral Status Reason Specialty Diagnoses / Procedures Referred By Contact Referred To Contact New Request Radiology Diagnoses Recurrent sinusitis Procedures CT Sinus [facility] [address] [place] [address] Additional Source Comments Reason for Visit (unrecogniz ed section and content) Reason Comments Pain ANKLE AND FOOT PAIN Pain Reason Comments Follow-up F/U LT CHARCOT FOOT WITH NEUROPATHY-SUN'AQ WALKER Pain Reason Comments Follow-up LT FOOT CHARCOT FOOT W/ NEUROPATHY Follow-up Reason Comments Acute recurrent frontal sinusitis Status Reason Specialty Diagnoses / Procedures Referred By Contact Referred To Contact Closed Otolaryngology Diagnoses Acute recurrent frontal sinusitis Mara Beverly MD [address] [place] [id number] Javier Fischer MD [address] [address] Status Reason Specialty Diagnoses / Procedures Re ferred By Contact Referred To Contact Diagnoses Charcot's joint of left foot Procedures VR Epidural Steroid Inj-B/L TALONAVICULAR AND CALCANEOCUBOID JOINT INJECTION Senait Ochoa MD [address] [facility] [address] [place] [address] Reason Comments PT Initial Evaluation charcot foot Status Reason Specialty Diagnoses / Procedures Referred By Contact Referred To Contact Closed Specialty Services Required/Patie nt's Best Interest Interventional Radiology / Cardiology Diagnoses Charcot's joint of left foot Neuropathy, idiopathic Pain Exten, Carlos Gerber MD [address] [place] [address] Senait Ochoa MD [address] [place] [address] Reason Comments Follow-up LT CHARCOT FOOT WITH NEUROPATHY -SUN'AQ WALKER Follow-up Reason Comments Follow-up CT Sinus Review Reason Comments Follow-up 6 week f/u recurrent sinusitis and rhinitis Reason Comments Diabetic Eye Exam INFORMATION SOURCE (unrecogn ized section and content) DATE CREATED AUTHOR 02/07/2019 [facility] DATE CREATED AUTHOR AUTHOR'S ORGANIZ ATION 08/13/2020 [facility] DATE CREATED AUTHOR AUTHOR'S ORGANIZ ATION 08/14/2020 [facility] DATE CREATED AUTHOR AUTHOR'S ORGANIZ ATION 05/09/2022 [facility] DATE CREATED AUTHOR AUTHOR'S ORGANIZ ATION 12/29/2022 [facility] DATE CREATED AUTHOR AUTHOR'S ORGANIZ ATION 03/25/[address] [facility] DATE CREATED AUTHOR AUTHOR'S ORGANIZ ATION 04/15/2024 [facility] DATE CREATED AUTHOR AUTHOR'S ORGANIZ ATION 05/13/[address] [facility] DATE CREATED AUTHOR AUTHOR'S ORGANIZ ATION 05/15/[address] [facility] DATE CREATED AUTHOR AUTHOR'S ORGANIZ ATION 05/16/[address] [facility] DATE CREATED AUTHOR AUTHOR'S ORGANIZ ATION 07/30/2024 [facility] DATE CREATED AUTHOR AUTHOR'S ORGANIZ ATION 08/10/2024 [facility] Assessment & Plan Note - Senait Ochoa MD - 07/18/2020 10:56 PM EDT Miscellaneous Notes (unrecog nized section and content) Associated Problem(s): Charcot's joint of left foot 50-year-old female with history of bilateral chronic foot pain, left greater than right, and Charcot foot on the left, who has been referred to my office to be evaluated for fluoroscopic guided intra-articular steroid injection. I have reviewed the patient's imaging. Patient has advanced degenerative changes of the left talonavicular, calcaneocuboid, and naviculocuneiform joints with appearance of Charcot foot. On the right she has moderate degenerative changes at the talonavicular and calcaneocuboid joints. These likely represent the etiology of patient's bilateral foot pain. Fluoroscopic guided intra-articular injection of steroid into the bilateral talonavicular and calcaneocuboid joints is appropriate and indicated. Due to the severity of her degenerative changes, I anticipate the procedure to be technically challenging, particularly for the left talonavicular joint which is particularly affected. I discussed this procedure with the patient, including risk, benefits, and alternatives. All questions were answered. She wishes to proceed with fluoroscopic guided intra-articular steroid injection of the bilateral talonavicular and calcaneocuboid joints. Informed written consent was obtained. Her procedure has been scheduled for 07/15/2020. documented in this encounter Care Team (unrecognized sect ion and content) Guest Attendant Relationship Specialty Start Date End Date Mara Beverly MD [address] [place] [id number] PCP - General 03/14/23 Guest Attendant Relationship Specialty Start Date End Date Mara Beevrly MD [address] [place] [address] PCP - General 03/14/23 FOR RECORDS PERTAINING TO PATIENTS WHO ARE OR HAVE BEEN ENROLLED IN A CHEMICAL DEPENDENCY/SUBSTANCEABUSE PROGRAM, SOME INFORMATION MAY BE OMITTED. This clinical summary was aggregated from multiple sources. Caution should be exercised in using it in the provision of clinical care. This summary normalizes information from multiple sources, and as a consequence, information in this document may materially change the coding, format and clinical context of patient data. In addition, data may be omitted in some cases. CLINICAL DECISIONS SHOULD BE BASED ON THE PRIMARY CLINICAL RECORDS. [facility] [employer] [facility]. provides no warranty or guarantee of the accuracy or completeness of information in this document.
--- NOTE | 2024-08-13 13:16 | PM.PRESUREVA ---
History of Present Illness History of Present Illness Chief complaint: Charcot joint right ankle and foot Narrative: Patient presents for preadmission testing. The patient reports a long history of bilateral foot and ankle pain. She underwent left foot and ankle reconstruction in 2019 and states she is happy with her results. The patient states she does wear a brace on her right ankle but it only provides minimal support. She does take diclofenac to help with her discomfort. The patient states she is unable to stand for long periods of time and she does use a walker for ambulation. Review of Systems ROS Narrative Negative except as stated in HPI, ten or more systems reviewed. Constitutional: No fever, chills, weakness ENT: No sore throat or epistaxis Cardiovascular: No chest pain or palpitations; admits to activity intolerance and pedal edema Respiratory: Chronic shortness of breath, cough, and wheezing Musculoskeletal: Chronic joint pain and swelling Gastrointestinal: No abdominal pain, constipation, diarrhea, or vomiting Genitourinary: No dysuria or hematuria Neurological: No numbness, tingling, weakness, or headache Psychiatric: No mood changes [facility] Medical History (Updated 08/13/24 @ 13:02 by Cynthia Byrd NP) Neuropathy ?G62.9 - Polyneuropathy, unspecified (ICD-10) Diabetes ?E11.9 - Type 2 diabetes mellitus without complications (ICD-10) Valgus deformity, not elsewhere classified, right ankle ?M21.071 - Valgus deformity, not elsewhere classified, right ankle (ICD-10) Primary osteoarthritis, right ankle and foot ?M19.071 - Primary osteoarthritis, right ankle and foot (ICD-10) Charcot's joint, left ankle and foot ?M14.672 - Charcot's joint, left ankle and foot (ICD-10) Non-pressure chronic ulcer of other part of right foot limited to breakdown of skin ?L97.511 - Non-pressure chronic ulcer of other part of right foot limited to breakdown of skin (ICD-10) Foot and ankle pain ?M79.673 - Pain in unspecified foot (ICD-10) ?M25.579 - Pain in unspecified ankle and joints of unspecified foot (ICD-10) Charcot's joint, right ankle and foot ?M14.671 - Charcot's joint, right ankle and foot (ICD-10) Neck pain ?M54.2 - Cervicalgia (ICD-10) Back pain ?M54.9 - Dorsalgia, unspecified (ICD-10) Arthritis ?M19.90 - Unspecified osteoarthritis, unspecified site (ICD-10) Anemia ?D64.9 - Anemia, unspecified (ICD-10) Depression ?F32.A - Depression, unspecified (ICD-10) COVID-19 ?U07.1 - COVID-19 (ICD-10) Pneumonia ?J18.9 - Pneumonia, unspecified organism (ICD-10) Bronchitis ?J40 - Bronchitis, not specified as acute or chronic (ICD-10) Asthma ?J45.909 - Unspecified asthma, uncomplicated (ICD-10) Vertigo ?R42 - Dizziness and giddiness (ICD-10) Migraine ?G43.909 - Migraine, unspecified, not intractable, without status migrainosus (ICD-10) Seasonal allergies ?J30.2 - Other seasonal allergic rhinitis (ICD-10) GERD (gastroesophageal reflux disease) ?K21.9 - Gastro-esophageal reflux disease without esophagitis (ICD-10) Extremity edema ?R60.0 - Localized edema (ICD-10) High cholesterol ?E78.00 - Pure hypercholesterolemia, unspecified (ICD-10) Hypertension ?I10 - Essential (primary) hypertension (ICD-10) Hypothyroidism ?E03.9 - Hypothyroidism, unspecified (ICD-10) Prediabetes ?R73.03 - Prediabetes (ICD-10) Surgical History (Updated 05/22/24 @ 11:38 by Cynthia Byrd NP) H/O elbow surgery ?Z98.890 - Other specified postprocedural states (ICD-10) History of hysterectomy ?Z90.710 - Acquired absence of both cervix and uterus (ICD-10) History of colonoscopy ?Z98.890 - Other specified postprocedural states (ICD-10) History of tonsillectomy ?Z90.89 - Acquired absence of other organs (ICD-10) History of arthroplasty of knee ?Z96.659 - Presence of unspecified artificial knee joint (ICD-10) S/P cataract extraction and insertion of intraocular lens ?Z98.49 - Cataract extraction status, unspecified eye (ICD-10) ?Z96.1 - Presence of intraocular lens (ICD-10) History of ankle surgery ?Z98.890 - Other specified postprocedural states (ICD-10) Family History (Updated 05/22/24 @ 11:38 by Cynthia Byrd NP) Other Family history of colon cancer Family history of diabetes mellitus Family history of leukemia Family history of myocardial infarction Family history of stroke Social History (Updated 05/22/24 @ 11:31 by Cynthia Bydr NP) Within the past year, how often did you have a drink containing alcohol: never Score interpretation: A score less than 3 is consistent with normal alcohol consumption. Smoking status: Never smoker Non-prescribed substance use: denies use Previous occupational history: Retired Highest level of school completed/degree received: high school graduate Meds Home Medications and Allergies Home Medications ?Medication ?Instructions ?Recorded ?Confirmed ?Type albuterol sulfate 90 mcg/actuation 2 inh inhalation Q4H PRN shortness 05/22/24 08/13/24 History aerosol inhaler of breath or wheezing aspirin 81 mg capsule 81 mg PO DAILY 05/22/24 08/13/24 History atorvastatin 20 mg tablet 20 mg PO DAILY 05/22/24 08/13/24 History citalopram 20 mg tablet 20 mg PO DAILY 05/22/24 08/13/24 History diclofenac sodium 75 mg 75 mg PO Q12H 05/22/24 08/13/24 History tablet,delayed release duloxetine 30 mg capsule,delayed 30 mg PO DAILY 05/22/24 08/13/24 History release fexofenadine 180 mg tablet 180 mg PO DAILY 05/22/24 08/13/24 History (Carla All[facility]) fluticasone furoate 100 1 inh inhalation Q24H 05/22/24 08/13/24 History mcg-vilanterol 25 mcg/dose inhalation powder (Breo Ellipta) fluticasone propionate 50 1 spray intranasal DAILY PRN 05/22/24 08/13/24 History mcg/actuation nasal allergy symptoms spray,suspension (24 Hour Allergy Relief) hydrochlorothiazide 12.5 mg capsule 12.5 mg PO DAILY 05/22/24 08/13/24 History levothyroxine 137 mcg tablet 137 mcg PO QPM 05/22/24 08/13/24 History losartan 50 mg tablet 50 mg PO BID 05/22/24 08/13/24 History montelukast 10 mg tablet 10 mg PO QPM 05/22/24 08/13/24 History omeprazole 20 mg capsule,delayed 20 mg PO DAILY 05/22/24 08/13/24 History release oxybutynin chloride 15 mg 15 mg PO DAILY 05/22/24 08/13/24 History tablet,extended release 24 hr propranolol 80 mg capsule,24 80 mg PO BID 05/22/24 08/13/24 History hr,extended release sumatriptan succinate 100 mg tablet 100 mg PO Q2H PRN migraine headache 05/22/24 08/13/24 History ipratropium 0.5 mg-albuterol 3 mg 3 ml inhalation Q8H PRN shortness 08/13/24 08/13/24 History (2.5 mg base)/3 mL nebulization of breath or wheezing soln multivitamin (Daily Multi-Vitamin 1 tab PO DAILY 08/13/24 08/13/24 History tablet) Allergies Allergy/AdvReac Type Severity Reaction Status Date / Time chlorzoxazone (From Parafon Allergy Unknown Verified 08/13/24 12:53 Forte DSC) moxifloxacin Allergy Hives Verified 08/13/24 12:53 Penicillins Allergy Hives Verified 08/13/24 12:53 Exam Narrative Exam Narrative: Constitutional: Awake, alert, comfortable, well-appearing, nontoxic, interactive, vital signs as charted Head: Normocephalic, atraumatic Neck: Supple, normal appearance, normal range of motion, no meningeal signs, no lymphadenopathy Respiratory: No respiratory distress, breath sounds clear Cardiovascular: Regular rate and rhythm, strong and regular heart tones Musculoskeletal: Patient ambulates with an antalgic gait utilizing a walker, right knee brace in place, right ankle brace in place, 2+ pedal edema bilaterally Skin: No rashes or induration, no lesions, only visible skin inspected Neuro: No neurological deficits, normal sensation Assessment and Plan Assessment and Plan (1) Charcot's joint, right ankle and foot: (2) Foot and ankle pain: (3) Non-pressure chronic ulcer of other part of right foot limited to breakdown of skin: (4) Charcot's joint, left ankle and foot: (5) Primary osteoarthritis, right ankle and foot: (6) Valgus deformity, not elsewhere classified, right ankle: Plan Right foot reconstruction with medial column and subtalar joint fusion with soft tissue balancing and bone graft as needed, possible hallux arthroplasty scheduled with Dr. Singh September 02, 2024.
[2024-08-13 13:38] LABS: Basophils Absolute Auto 0.1 10^3/uL (0.0-0.1); Basophils Percent Auto 1.2 % (0.2-2.0); Eosinophils Absolute Auto 0.1 10^3/uL (0.0-0.7); Eosinophils Percent Auto 2.7 % (0.9-7.0); Hematocrit 37.8 % (36.0-48.0); Hemoglobin 12.7 g/dL (12.0-16.0); Immature Granulocytes Abs Auto 0.01 10^3/uL (0.00-0.03); Immature Granulocytes Pct Auto 0.2 % (0.0-0.5); Lymphocytes Absolute Auto 1.8 10^3/uL (1.2-3.8); Lymphocytes Percent Auto 35.8 % (20.5-60.0); Mean Corpuscular HGB Conc 33.6 g/dL (29.9-35.2); Mean Corpuscular Hemoglobin 30.8 pg (26.7-34.0); Mean Corpuscular Volume 91.7 fL (81.0-99.0); Mean Platelet Volume 9.8 fL (9.5-13.5); Monocytes Absolute Auto 0.5 10^3/uL (0.3-0.8); Monocytes Percent Auto 9.1 % (1.7-12.0); Neutrophils Absolute Auto 2.6 10^3/uL (1.4-6.5); Platelet Count 192 10^3/uL (150-450); Red Blood Count 4.12 10^6/uL (4.20-5.40); Red Cell Distribution Width 13.5 % (11.0-15.0); White Blood Count 5.1 10^3/uL (4.0-11.0)
[2024-08-13 13:56] LABS: Anion Gap 13.5; BUN Creatinine Ratio 23.6; Calcium 9.6 mg/dL (8.5-10.1); Carbon Dioxide 25.7 mmol/L (21.0-32.0); Chloride 105 mmol/L (98-107); Estimated GFR (African America 43 (>=60 mL/min/1.73m^2); Estimated GFR (Non-African Ame 35 (>=60 mL/min/1.73m^2); Glucose 117 mg/dL (74-106); Potassium 4.2 mmol/L (3.5-5.1); Sodium 140 mmol/L (136-145)
== END 2024-08-13 12:35 | disposition home or self-care (01) ==
LOC: PST 12:36
PROVIDERS: Visit Provider Podiatrist Foot & Ankle Surgery
DX: Z01.812 Encounter for preprocedural laboratory examination (principal); Z01.818 Encounter for other preprocedural examination; M14.671 Charcot's joint, right ankle and foot
CPT/HCPCS: 80048; 85025; G0463

== ENCOUNTER 2024-09-03 09:40 | Observation (INO) | payer OTHER, SELFPAY ==
[2024-08-13 13:10] VITALS: BP 126/78; PULSE 67; TEMP 36.3; O2SAT 95; BMI 40.8
[2024-09-02] VITALS (12 sets, daily range): BP systolic 95–129; BP diastolic 55–70; PULSE 68–81; TEMP 35.9–36.8; O2SAT 93–98; BMI 40.2; BMI 40.4
--- NOTE | 2024-09-02 | FL_ITS ---
[address] [address] Patient Name: LEVI SOFIA MRN: [id number] date: 1960 Sex: F Assigned Patient [facility] Current Patient Location: [place] Accession/Order Number: [id number] Exam Date: 09/02/2024 16:48 Report Date: 09/04/2024 08:53 At the request of: JULIO JOHNSON Procedure: FL fluoroscopy <1hr NON-READ EXAM: FL fluoroscopy <1hr NON-READ HISTORY: TECHNIQUE: FINDINGS: Please see Operative Report. Electronically authenticated by: RADIOLOGIST NO Date: 09/04/2024 08:53
[2024-09-02 10:29] LABS: Basophils Absolute Auto 0.1 10^3/uL (0.0-0.1); Basophils Percent Auto 1.2 % (0.2-2.0); Eosinophils Absolute Auto 0.2 10^3/uL (0.0-0.7); Eosinophils Percent Auto 3.1 % (0.9-7.0); Hematocrit 40.9 % (36.0-48.0); Hemoglobin 13.6 g/dL (12.0-16.0); Lymphocytes Absolute Auto 1.8 10^3/uL (1.2-3.8); Lymphocytes Percent Auto 30.9 % (20.5-60.0); Mean Corpuscular HGB Conc 33.3 g/dL (29.9-35.2); Mean Corpuscular Hemoglobin 30.5 pg (26.7-34.0); Mean Corpuscular Volume 91.7 fL (81.0-99.0); Mean Platelet Volume 9.4 fL (9.5-13.5); Monocytes Absolute Auto 0.3 10^3/uL (0.3-0.8); Monocytes Percent Auto 5.8 % (1.7-12.0); Neutrophils Absolute Auto 3.4 10^3/uL (1.4-6.5); Platelet Count 199 10^3/uL (150-450); Red Blood Count 4.46 10^6/uL (4.20-5.40); White Blood Count 5.8 10^3/uL (4.0-11.0)
[2024-09-02 10:45] LABS: Glucometer 134 mg/dL (74-106)
[2024-09-02] MEDS: LACTATED RINGER'S SOLUTION 1,000 ML 50 ML IV ×2 (10:59→13:40)
--- NOTE | 2024-09-02 13:01 | P.ORON_ITS ---
Brief Operative Note Date of procedure: 09/02/24 Pre-op diagnosis general: Right Charcot foot deformity with valgus hindfoot and varus forefoot, lateral rocker-bottom foot deformity degenerative joint disease of foot, equinus Post-op diagnosis: same as pre-op Procedure: Procedure performed: Right Charcot foot reconstruction with midfoot osteotomy and medial column fusion, subtalar joint fusion, ostectomy of cuboid, tendo Achilles lengthening with application of short leg splint Indications for procedure: Patient is a 64-year-old female well-known to my practice who underwent left Charcot foot reconstruction over 3 years ago and has been very happy with the outcome. Unfortunately, she has developed worsening pain and dysfunction associate with her right foot and findings are consistent with Charcot. She has a plantarly prominent cuboid and loss of the medial longitudinal arch. She has had skin changes in the past but has not recently ulcerated. She initially was treated nonoperatively with custom bracing including a hinged double upright brace and [employer] boot but unfortunately this only exacerbated her ipsilateral knee pain therefore she wished to undergo surgical reconstruction. She was educated on all potential risks and benefits and all questions answered to her satisfaction. Intraoperative findings: Ankle joint dorsiflexion was to neutral but not past. Hindfoot valgus and degenerative changes to the subtalar joint. Unhealed fracture and bone fragmentation involving much of the navicular and a portion of the talar head and neck. Obvious severe degenerative changes involving the talonavicular and naviculocuneiform joints. Although the bony prominence of the cuboid did improve after the medial column and subtalar joint were reduced there was concern for residual lateral rocker-bottom foot therefore ostectomy of the cuboid was also performed. Retained screws in the first metatarsal head/neck were unable to be removed as they were stripped and buried in bone therefore fixation was placed more proximally in the base of the first metatarsal. Bone was osteopenic consistent with Charcot but no evidence of deep space infection. Procedure in detail: Patient was identified preoperatively by myself which time correct side and site were marked and consent was obtained. Regional anesthesia was performed by the anesthesia team. Preoperative antibiotics were started and the patient was brought back to the operating theater placed on table in supine position with a thigh tourniquet. General anesthesia was administered and the right lower extremity was prepped and draped in usual sterile fashion. Formal timeout was performed and the right lower extremity was exsanguinated and tourniquet was inflated. A standard triple hemisection tendo Achilles lengthening was performed through 3 separate stab incisions in the noninsertional area of the Achilles tendon the most distal releasing the lateral half of the Achilles, the middle released the medial half of the Achilles and the most proximal released the lateral half of the Achilles. Ankle joint dorsiflexion improved to 10 degrees past neutral. Lateral extensile incision from the distal fibula over the sinus tarsi and to the level of the calcaneocuboid joint was performed. Combination of sharp and blunt dissection with all bleeders being coagulated gained access to the sinus tarsi. Sinus tarsiectomy was performed gaining access to the subtalar joint which was prepared for fusion utilizing osteotomes, curettes, rongeur's, awls and a 2.0 mm drill bit. Surgical site was irrigated with copious saline. Then further dissection through this incision was performed to gain access to the lateral talar navicular joint which was prepared in a similar manner. Then an incision was placed between the tibialis anterior tendon and the extensor hallucis longus tendon at the level of the ankle and course down over the first ray. Combination of sharp and blunt dissection gained access to the medial column while protecting tendon and neurovascular structures. Upon further dissection and exposure of the talonavicular joint it was obvious that there was a old unhealed fracture with bony fragmentation at the level of the talonavicular joint which involved much of the central aspect of the navicular body and a portion of the medial talar head and neck. All compromised bone was excised and the joint was prepared in a similar fashion as stated above. The naviculocuneiform and first tarsometatarsal joints were also prepared in a similar fashion. A portion of the bone allograft mixture was then packed into the subtalar joint, and medial column joints respectively. A Large Steinmann pin was placed through a 2 cm linear incision on the posterior calcaneus which was used to hold the subtalar joint reduced. The subtalar joint was then pinned with a guidewire and position was confirmed on fluoroscopy. Then a 6.5 mm compression beam was placed accordingly noting compression and deformity correction. However at this time it was obvious that the midfoot could not be corrected and reduced in a plantigrade position therefore an osteotomy was performed across the talonavicular and calcaneocuboid joints. I could then reduce and pin the medial column in a plantigrade position however there was concerned that some residual lateral rocker-bottom foot deformity persisted. The lateral extensile incision was then extended to the fifth metatarsal base and dissection was taken along bone plantarly protecting the peroneal tendons. A sagittal saw and osteotomes were used to perform ostectomy of the plantar aspect of the cuboid. Then the dorsal medial incision was extended distally exposing the first metatarsal head and attempt was made to pin the medial column from the first met head approximately however 2 screws prevented passage of the guidepin. The screws were dissected out but were noted to be stripped and attempt to remove with a rongeur only further damage the screws so decision was made to pin the medial column from the medial aspect of the first met base which was done so under fluoroscopy. Once proper placement of the wire was obtained a 6.5 mm beam was placed from the first met base medially and into the talar body under fluor oscopy noting compression across the medial column joints including the remaining aspects of the talonavicular and naviculocuneiform joints however a bony deficit in the central area of the navicular persisted. Then an additional guidewire was placed from the dorsal aspect of the first met base and into the talar body. A 5.0 mm beam was placed accordingly for additional stability. The tourniquet was deflated with a prompt hyperemic response and the surgical site was irrigated with copious muscle sterile saline. The lateral extensile incision was then closed in layers while pressure was held to the medial column incision. Once hemostasis was controlled over the medial column remaining bone graft was packed into the deficit created by the navicular fracture and this incision was also closed in layers. A dry sterile dressing and multilayer modified Toussaint compression splint was applied. Patient tolerated the procedure and anesthesia well was transferred to the recovery room with vital signs stable and brisk capillary refill to the right toes. Postoperative plan: Implants: Vilex Beams Anesthesia: regional and General-LMA Surgeon: Corbin Singh Estimated blood loss (mL): 25 Condition: stable Disposition: PACU
--- NOTE | 2024-09-02 13:02 | PC.NURSE ---
1241 time out performed per protocol. Patient positioned on left side and Dr. Nicole with use of ultrasound guidance performed a sterile popliteal block intiated at 1246 and finished at 1250. Patient was cleaned and repositioned to back Patient tolerated well. Patient prepped for right femoral block. Dr. Nicole with use of ultrasound guidance performed a sterile femoral block intiated at 1254 and finished at 1258. Patient tolerated well, cleaned up and repositioned to a semi fowlers positioning. Patient tolerated well and has no complaints.
[2024-09-02] MEDS: CEFAZOLIN SODIUM 3,000 MG in 0.9 % SODIUM CHLORIDE 100 ML 200 MG IV (13:11)
[2024-09-02] MEDS: THROMBI-GEL SIZE 40 HEMOSTAT 1 EACH TOPICAL (15:43)
[2024-09-02 17:25] LABS: Glucometer 131 mg/dL (74-106)
--- NOTE | 2024-09-02 17:57 | P.PN_ITS ---
Progress Note: Subjective Subjective Interval history: Patient was admitted for podiatric surgery for Charcot foot. I was consulted for Co. medical management. When I saw patient up on the medical surgical floor, she was ordering supper, no complaints, denied chest pain or shortness of breath. She does have a history of asthma but not exacerbated recently. Exam Constitutional Vital Signs, click to edit/add: Last Vital Signs Temp 97.5 F L 09/02/24 17:47 Pulse 68 09/02/24 17:47 Resp 12 09/02/24 17:47 BP 115/56 09/02/24 17:47 Pulse Ox 98 09/02/24 17:47 O2 Del Method Nasal Cannula 09/02/24 17:47 O2 Flow Rate 1 09/02/24 17:47 Documenting provider has reviewed patient's vital signs: yes Common normals: no apparent distress Lymph Lymphatic: no lymphadenopathy noted Chest Common normals: inspection of chest normal and palpation of chest normal Respiratory Common normals: normal respiratory effort and no retractions Cardio Common normals: regular rate and regular rhythm GI Common normals: Normal to inspection, nondistended, normoactive bowel sounds present, soft to palpation and non-tender Back & Pelvis Common normals: thoracic and lumbar spine normal to inspection Progress Note: Objective Labs Labs: Short CBC 09/02/24 Range/Units 10:22 WBC 5.8 (4.0-11.0) 10^3/uL Hgb 13.6 (12.0-16.0) g/dL Hct 40.9 (36.0-48.0) % Plt Count 199 (150-450) 10^3/uL Progress Note: A&P Assessment and Plan (1) Neuropathy: (2) Diabetes: (3) Arthritis: (4) Anemia: (5) Depression: (6) High cholesterol: (7) Hypertension: (8) Hypothyroidism: Plan Admission findings: Patient admitted after podiatric surgery. She be placed in the outpatient surgical status. Charcot foot-plan per podiatry Asthma-continue with home medications Hypercholesterolemia-continue with home medications Generalized arthritis-on Toradol Neuropathy and depression-continue with home medications Prediabetes-monitor sugar Seasonal allergic rhinitis-continue with home medications Hypertension-continue with home medications GERD-continue with home medications Bladder spasms continue with home medications Migraines-continue with home medications as needed L Admission status: Patient replaced in the surgical outpatient setting with status post podiatric surgery. Giorgi in a.m. for stability for ambulation since she lives alone and pain control
[2024-09-02] MEDS: ACETAMINOPHEN 500 MG TABLET 1000 MG PO ×2 (18:46→23:38)
[2024-09-02 21:07] LABS: Glucometer 222 mg/dL (74-106)
[2024-09-02] MEDS: LEVOTHYROXINE SODIUM 112 MCG TABLET PO (22:47)
[2024-09-02] MEDS: PROPRANOLOL HCL 80 MG CAP.24H PO (22:47)
[2024-09-02] MEDS: PREGABALIN 75 MG CAPSULE PO (22:48)
[2024-09-02] MEDS: ENSURE HP 237 ML LIQUID PO (22:48)
[2024-09-02] MEDS: JUVEN PACKET 1 PACKET PO (22:48)
[2024-09-02] MEDS: LEVOTHYROXINE SODIUM 25 MCG TABLET PO (22:48)
[2024-09-02] MEDS: CHOLECALCIFEROL (VITAMIN D3) 125 MCG/5,000 UNIT TABLET PO (22:48)
[2024-09-02] MEDS: LOSARTAN POTASSIUM 50 MG TABLET PO (22:48)
[2024-09-02] MEDS: MONTELUKAST SODIUM 10 MG TABLET PO (22:48)
[2024-09-02] MEDS: ENOXAPARIN SODIUM 40 MG/0.4 ML SYRINGE SUBQ (22:49)
[2024-09-02] MEDS: CEFAZOLIN SODIUM/DEXTROSE,ISO 1 GM/50 ML PREMIX IV (22:58)
[2024-09-03 04:00] VITALS: BP 114/60; PULSE 70; TEMP 36.9; O2SAT 94
[2024-09-03] MEDS: CEFAZOLIN SODIUM/DEXTROSE,ISO 1 GM/50 ML PREMIX IV ×3 (05:23→21:44)
[2024-09-03] MEDS: ACETAMINOPHEN 500 MG TABLET 1000 MG PO ×3 (05:23→23:59)
[2024-09-03 06:16] LABS: Basophils Percent Auto 0.2 % (0.2-2.0); Immature Granulocytes Abs Auto 0.03 10^3/uL (0.00-0.03); Immature Granulocytes Pct Auto 0.3 % (0.0-0.5); Lymphocytes Absolute Auto 1.7 10^3/uL (1.2-3.8); Lymphocytes Percent Auto 15.7 % (20.5-60.0); Mean Corpuscular HGB Conc 33.3 g/dL (29.9-35.2); Mean Corpuscular Hemoglobin 30.7 pg (26.7-34.0); Mean Corpuscular Volume 92.2 fL (81.0-99.0); Mean Platelet Volume 9.8 fL (9.5-13.5); Monocytes Absolute Auto 0.9 10^3/uL (0.3-0.8); Monocytes Percent Auto 8.3 % (1.7-12.0); Neutrophils Absolute Auto 8.2 10^3/uL (1.4-6.5); Neutrophils Percent Auto 75.5 % (43.0-75.0); Platelet Count 179 10^3/uL (150-450); Red Blood Count 3.58 10^6/uL (4.20-5.40); Red Cell Distribution Width 13.8 % (11.0-15.0); White Blood Count 10.9 10^3/uL (4.0-11.0)
[2024-09-03 06:31] LABS: Anion Gap 16.6; BUN Creatinine Ratio 26.6; C Reactive Protein 0.97 mg/dL (<=0.50); Calcium 8.7 mg/dL (8.5-10.1); Carbon Dioxide 25.6 mmol/L (21.0-32.0); Chloride 104 mmol/L (98-107); Estimated GFR (African America 53 (>=60 mL/min/1.73m^2); Estimated GFR (Non-African Ame 43 (>=60 mL/min/1.73m^2); Glucose 135 mg/dL (74-106); Potassium 4.2 mmol/L (3.5-5.1); Sodium 142 mmol/L (136-145)
[2024-09-03 07:46] VITALS: BP 124/79; PULSE 76; TEMP 36.9; O2SAT 97
--- NOTE | 2024-09-03 08:14 | PM.PN ---
Progress Note: Subjective Subjective Interval history: Patient is 1 day status post right Charcot reconstruction. She feels well currently and pain is controlled however complains of difficulty transferring on her left lower extremity and is very worried about falls. Exam Narrative Exam Narrative: Splint is clean dry and intact. Light touch sensation from the mid thigh, knee and toes is absent indicating the block is still working well but she is able to wiggle her toes. Capillary refill is brisk to her toes Constitutional Vital Signs, click to edit/add: Last Vital Signs Temp 98.5 F 09/03/24 07:46 Pulse 76 09/03/24 07:46 Resp 18 09/03/24 07:46 BP 124/79 09/03/24 07:46 Pulse Ox 97 09/03/24 07:46 O2 Del Method Room Air 09/03/24 07:46 O2 Flow Rate 1 09/02/24 17:47 Progress Note: Objective Labs Labs: Short CBC 09/02/24 09/03/24 Range/Units 10:22 05:46 WBC 5.8 10.9 (4.0-11.0) 10^3/uL Hgb 13.6 11.0 L (12.0-16.0) g/dL Hct 40.9 33.0 L (36.0-48.0) % Plt Count 199 179 (150-450) 10^3/uL BMP 09/03/24 05:46 Sodium 142 Potassium 4.2 Chloride 104 Carbon Dioxide 25.6 BUN 33.0 H Creatinine 1.24 H Glucose 135 H Calcium 8.7 Progress Note: A&P Assessment and Plan (1) Neuropathy: (2) Diabetes: (3) Arthritis: (4) Anemia: (5) Depression: (6) High cholesterol: (7) Hypertension: (8) Hypothyroidism: Plan Patient overall is doing satisfactorily however she is a high fall risk. Awaiting physical therapy's assessment but I believe it is best for the patient to go to nursing home facility given she lives alone and is having difficulty even transferring on her contralateral leg. Plan is for her to be nonweightbearing for 3 months Postoperative x-rays were not completed therefore these were reordered Depending on when patient is discharged may consider placing patient into a total contact cast for extra protection this will depend on how many days from surgery discharge will occur and how well her swelling is controlled.
--- NOTE | 2024-09-03 08:17 | XR_ITS ---
The [address] [address] Patient Name: LEVI SOFIA MRN: [id number] date: 1960 Sex: F Assigned Patient Location: [place] Current Patient Location: Accession/Order Number: [id number] Exam Date: 09/03/2024 09:18 Report Date: 09/06/2024 07:31 At the request of: JULIO JOHNSON Procedure: XR foot RT min 3V PROCEDURE: XR foot RT min 3V HISTORY: Charcot COMPARISON: XR foot bilateral 01/09/2024 FINDINGS: BONES:Advanced degenerative changes and collapse of the midfoot with interval fusion of the talocalcaneal joints and medial midfoot via several screws. Prior osteotomy and repair of distal first metatarsal. SOFT TISSUES:Postoperative soft tissue swelling. Images were obtained to cast material. EFFUSION:None visible. OTHER: Negative. XR/XR foot RT min 3V IMPRESSION: 1. 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 Electronically authenticated by: JODI PAPPAS Date: 09/06/2024 07:31
[2024-09-03] MEDS: HYDROCHLOROTHIAZIDE 25 MG TABLET 12.5 MG PO (08:40)
[2024-09-03] MEDS: CITALOPRAM HYDROBROMIDE 20 MG TABLET PO (08:40)
[2024-09-03] MEDS: PREGABALIN 75 MG CAPSULE PO ×2 (08:40→21:43)
[2024-09-03] MEDS: LOSARTAN POTASSIUM 50 MG TABLET PO ×2 (08:40→21:43)
[2024-09-03] MEDS: ASPIRIN 81 MG TAB.CHEW PO (08:40)
[2024-09-03] MEDS: OMEPRAZOLE 20 MG CAPSULE.DR PO (08:40)
[2024-09-03] MEDS: DULOXETINE HCL 30 MG CAPSULE.DR PO (08:40)
[2024-09-03] MEDS: PROPRANOLOL HCL 80 MG CAP.24H PO ×2 (08:40→21:44)
[2024-09-03] MEDS: MULTIVITAMIN TABLET 1 TAB PO (08:40)
[2024-09-03] MEDS: CETIRIZINE HCL 10 MG TABLET PO (08:40)
[2024-09-03] MEDS: ATORVASTATIN CALCIUM 20 MG TABLET PO (08:40)
[2024-09-03] MEDS: OXYBUTYNIN CHLORIDE 5 MG TAB XL 15 MG PO (08:40)
[2024-09-03] MEDS: JUVEN PACKET 1 PACKET PO (08:41)
[2024-09-03] MEDS: ENSURE HP 237 ML LIQUID PO (08:41)
--- NOTE | 2024-09-03 08:46 | CM.NOTE ---
Rounds made with Dr. Costello, PT and OT will evaluate pt today for discharge planning. Pt will be OBS status.
--- NOTE | 2024-09-03 09:39 | P.PN_ITS ---
Progress Note: Subjective Subjective Interval history: Day 1 postop, no complications overnight from medical standpoint Exam Constitutional Vital Signs, click to edit/add: Last Vital Signs Temp 98.5 F 09/03/24 07:46 Pulse 76 09/03/24 07:46 Resp 18 09/03/24 07:46 BP 124/79 09/03/24 07:46 Pulse Ox 97 09/03/24 07:46 O2 Del Method Room Air 09/03/24 07:46 O2 Flow Rate 1 09/02/24 17:47 Documenting provider has reviewed patient's vital signs: yes Common normals: no apparent distress Lymph Lymphatic: no lymphadenopathy noted Chest Common normals: inspection of chest normal and palpation of chest normal Respiratory Common normals: normal respiratory effort and no retractions Cardio Common normals: regular rate and regular rhythm GI Common normals: Normal to inspection, nondistended, normoactive bowel sounds present, soft to palpation and non-tender Back & Pelvis Common normals: thoracic and lumbar spine normal to inspection Progress Note: Objective Labs Labs: Short CBC 09/02/24 09/03/24 Range/Units 10:22 05:46 WBC 5.8 10.9 (4.0-11.0) 10^3/uL Hgb 13.6 11.0 L (12.0-16.0) g/dL Hct 40.9 33.0 L (36.0-48.0) % Plt Count 199 179 (150-450) 10^3/uL BMP 09/03/24 05:46 Sodium 142 Potassium 4.2 Chloride 104 Carbon Dioxide 25.6 BUN 33.0 H Creatinine 1.24 H Glucose 135 H Calcium 8.7 Progress Note: A&P Assessment and Plan (1) Neuropathy: (2) Diabetes: (3) Arthritis: (4) Anemia: (5) Depression: (6) High cholesterol: (7) Hypertension: (8) Hypothyroidism: Plan Admission findings: Patient admitted after podiatric surgery. She be placed in the outpatient surgical status. Beth foot-plan per podiatry-sounds like patient difficulty with her balance. High fall risk. Rehab is recommended. Asthma-continue with home medications Hypercholesterolemia-continue with home medications Generalized arthritis-on Toradol-stable Neuropathy and depression-continue with home medications-stable Prediabetes-monitor sugar Seasonal allergic rhinitis-continue with home medications Hypertension-continue with home medications GERD-continue with home medications Bladder spasms continue with home medications Migraines-continue with home medications as needed Admission status: Patient replaced in the observational time period. Having failed the surgical outpatient time period
[2024-09-03] MEDS: BREO ELLIPTA 1 EACH IH (11:00)
--- NOTE | 2024-09-03 11:41 | SWNOTE1 ---
SW met with pt to discuss dc needs. SW consulted to assist with SNF placement. Pt is in agreement with SNF. Pt lives at home alone, has good support from family/friends. Pt lives in apartment that is 1 floor. She has a ramp to get in the home. Pt had a power chair in room and voiced that she just got it. She stated prior to all of this she was walking in the home with a walker. Pt's goal is to get strong enough to not use any DME. SW provided pt with a list from Medicare.gov with star ratings. Pt would like SW to try [facility]. HAIR called and spoke to Angle at [facility] and they did not have bed available. Angle voiced she has 4 other referrals at this time. HAIR let pt know and she would like to try the [facility]. HAIR called [facility] and they have openings. Referral sent to [facility]. Referral included face sheet, ED note, H&P, provider notes, case management report, OR note, nursing notes, diagnostic imaging, med list, and PT notes. Will send OT once evaluated.
--- NOTE | 2024-09-03 11:46 | SWNOTE1 ---
Medicare Outpatient Observation Notice reviewed and discussed with patient. Pt. verbalized understanding and signed the form. Original given to patient and copy placed in patient?s chart.
[2024-09-03 11:51] LABS: Glucometer 159 mg/dL (74-106)
[2024-09-03 12:11] VITALS: BP 107/56; PULSE 68; TEMP 36.6; O2SAT 95
--- NOTE | 2024-09-03 13:31 | SWNOTE1 ---
[facility] called back and they only have private rooms available. HAIR spoke to pt and she is alright with this. HAIR let [facility] know. [facility] will start precert once OT is completed.
[2024-09-03 15:06] VITALS: BP 111/60; PULSE 70; TEMP 36.6; O2SAT 95
--- NOTE | 2024-09-03 15:42 | SWNOTE1 ---
OT note sent to [facility].
--- NOTE | 2024-09-03 15:47 | SWNOTE1 ---
[facility] has accepted and started precert today.
[2024-09-03 16:16] LABS: Glucometer 110 mg/dL (74-106)
[2024-09-03 19:27] VITALS: BP 107/68; PULSE 64; TEMP 36.5; O2SAT 92
[2024-09-03] MEDS: MONTELUKAST SODIUM 10 MG TABLET PO (19:27)
[2024-09-03] MEDS: OXYCODONE HCL 5 MG TABLET 10 MG PO (19:28)
[2024-09-03 19:54] VITALS: O2SAT 96
[2024-09-03] MEDS: KETOROLAC TROMETHAMINE 30 MG/ML VIAL 15 MG IVP (20:47)
[2024-09-03] MEDS: LEVOTHYROXINE SODIUM 25 MCG TABLET PO (21:43)
[2024-09-03] MEDS: ENOXAPARIN SODIUM 40 MG/0.4 ML SYRINGE SUBQ (21:43)
[2024-09-03] MEDS: CHOLECALCIFEROL (VITAMIN D3) 125 MCG/5,000 UNIT TABLET PO (21:43)
[2024-09-03] MEDS: LEVOTHYROXINE SODIUM 112 MCG TABLET PO (21:45)
[2024-09-03 22:32] LABS: Glucometer 137 mg/dL (74-106)
[2024-09-04] VITALS (9 sets, daily range): BP systolic 90–123; BP diastolic 44–65; PULSE 58–66; TEMP 36.6–36.8; O2SAT 91–95
[2024-09-04] MEDS: OXYCODONE HCL 15 MG TABLET PO (02:51)
[2024-09-04] MEDS: ACETAMINOPHEN 500 MG TABLET 1000 MG PO ×2 (05:15→12:11)
[2024-09-04] MEDS: CEFAZOLIN SODIUM/DEXTROSE,ISO 1 GM/50 ML PREMIX IV ×2 (05:15→12:19)
[2024-09-04 05:40] LABS: Basophils Absolute Auto 0.1 10^3/uL (0.0-0.1); Basophils Percent Auto 0.6 % (0.2-2.0); Eosinophils Absolute Auto 0.1 10^3/uL (0.0-0.7); Eosinophils Percent Auto 1.5 % (0.9-7.0); Hematocrit 32.8 % (36.0-48.0); Hemoglobin 10.5 g/dL (12.0-16.0); Immature Granulocytes Abs Auto 0.02 10^3/uL (0.00-0.03); Immature Granulocytes Pct Auto 0.3 % (0.0-0.5); Lymphocytes Absolute Auto 2.8 10^3/uL (1.2-3.8); Lymphocytes Percent Auto 34.6 % (20.5-60.0); Mean Corpuscular Hemoglobin 29.9 pg (26.7-34.0); Mean Corpuscular Volume 93.4 fL (81.0-99.0); Mean Platelet Volume 9.7 fL (9.5-13.5); Monocytes Absolute Auto 0.7 10^3/uL (0.3-0.8); Monocytes Percent Auto 9.1 % (1.7-12.0); Neutrophils Absolute Auto 4.3 10^3/uL (1.4-6.5); Neutrophils Percent Auto 53.9 % (43.0-75.0); Platelet Count 165 10^3/uL (150-450); Red Blood Count 3.51 10^6/uL (4.20-5.40); Red Cell Distribution Width 14.2 % (11.0-15.0); White Blood Count 7.9 10^3/uL (4.0-11.0)
[2024-09-04 06:04] LABS: Anion Gap 11.4; BUN Creatinine Ratio 24.7; C Reactive Protein 4.24 mg/dL (<=0.50); Calcium 9.3 mg/dL (8.5-10.1); Carbon Dioxide 28.7 mmol/L (21.0-32.0); Chloride 104 mmol/L (98-107); Estimated GFR (African America 44 (>=60 mL/min/1.73m^2); Estimated GFR (Non-African Ame 36 (>=60 mL/min/1.73m^2); Glucose 130 mg/dL (74-106); Potassium 4.1 mmol/L (3.5-5.1); Sodium 140 mmol/L (136-145)
--- NOTE | 2024-09-04 08:22 | CM.NOTE ---
Rounds made with Dr. Costello. Continue with current plan of care.
[2024-09-04 08:27] LABS: Glucometer 128 mg/dL (74-106)
[2024-09-04] MEDS: ENSURE HP 237 ML LIQUID PO (08:44)
[2024-09-04] MEDS: DULOXETINE HCL 30 MG CAPSULE.DR PO (08:44)
[2024-09-04] MEDS: MULTIVITAMIN TABLET 1 TAB PO (08:44)
[2024-09-04] MEDS: LOSARTAN POTASSIUM 50 MG TABLET PO (08:45)
[2024-09-04] MEDS: OXYBUTYNIN CHLORIDE 5 MG TAB XL 15 MG PO (08:45)
[2024-09-04] MEDS: HYDROCHLOROTHIAZIDE 25 MG TABLET 12.5 MG PO (08:46)
[2024-09-04] MEDS: CITALOPRAM HYDROBROMIDE 20 MG TABLET PO (08:46)
[2024-09-04] MEDS: OMEPRAZOLE 20 MG CAPSULE.DR PO (08:47)
[2024-09-04] MEDS: ASPIRIN 81 MG TAB.CHEW PO (08:47)
[2024-09-04] MEDS: PREGABALIN 75 MG CAPSULE PO (08:47)
[2024-09-04] MEDS: JUVEN PACKET 1 PACKET PO (08:47)
[2024-09-04] MEDS: ATORVASTATIN CALCIUM 20 MG TABLET PO (08:56)
[2024-09-04] MEDS: CETIRIZINE HCL 10 MG TABLET PO (09:00)
[2024-09-04] MEDS: PROPRANOLOL HCL 80 MG CAP.24H PO (09:14)
--- NOTE | 2024-09-04 09:31 | P.PN_ITS ---
Progress Note: Subjective Subjective Interval history: Day 1 postop, no complications overnight from medical standpoint Exam Constitutional Vital Signs, click to edit/add: Last Vital Signs Temp 98.3 F 09/04/24 08:00 Pulse 58 L 09/04/24 08:00 Resp 16 09/04/24 08:00 BP 105/50 09/04/24 09:14 Pulse Ox 94 L 09/04/24 08:00 O2 Del Method Room Air 09/04/24 08:00 O2 Flow Rate 1 09/02/24 17:47 Progress Note: Objective Labs Labs: Short CBC 09/04/24 Range/Units 05:11 WBC 7.9 (4.0-11.0) 10^3/uL Hgb 10.5 L (12.0-16.0) g/dL Hct 32.8 L (36.0-48.0) % Plt Count 165 (150-450) 10^3/uL BMP 09/04/24 05:11 Sodium 140 Potassium 4.1 Chloride 104 Carbon Dioxide 28.7 BUN 36.0 H Creatinine 1.46 H Glucose 130 H Calcium 9.3 Progress Note: A&P Assessment and Plan (1) Neuropathy: (2) Diabetes: (3) Arthritis: (4) Anemia: (5) Depression: (6) High cholesterol: (7) Hypertension: (8) Hypothyroidism: Plan Admission findings: Patient admitted after podiatric surgery. She be placed in the outpatient surgical status. Charcot foot-plan per podiatry-sounds like patient difficulty with her balance. High fall risk. Rehab is recommended. Asthma-continue with home medications Hypercholesterolemia-continue with home medications Generalized arthritis-on Toradol-stable Neuropathy and depression-continue with home medications-stable Prediabetes-monitor sugar Seasonal allergic rhinitis-continue with home medications Hypertension-continue with home medications GERD-continue with home medications Bladder spasms continue with home medications Migraines-continue with home medications as needed Admission status: Patient replaced in the observational time period. Having failed the surgical outpatient time period
--- NOTE | 2024-09-04 10:20 | REH.PTDLY ---
Physical Therapy Daily Note PT Daily Note/Assess Start: 09/04/24 10:12 Freq: Status: Active Protocol: Document 09/04/24 10:12 NATHAN (Rec: 09/04/24 10:20 NATHAN [id number]) Physical Therapy Daily Note/Assessment Time In 08:59 Time Out 09:22 Subjective Pt reports she feels like she could just sleep all day, struggling to stay awake this morning. Denies any pain. Therapeutic Exercise Minutes (minutes) 11 Therapeutic Exercise Units 1 Therapeutic Exercise Treatment Instructed in B LE seated LAQ, marching and hip add squeeze 10x ea. Supine B LE SLR, QS, hip abd slides, and heel slides 10x ea. Encouraged pt to perform these throughout the day to improve strength for ease of transfers. Therapeutic Activity Minutes (minutes) 9 Therapeutic Activity Units 0 Therapeutic Activity Comments Pt ind with supine to sit transfers. Sit to stand transfers Mod A x2 with RW and therapist foot blocking L foot, and another therapist keeping foot under R foot to assure NWB is being maintained on R. Pt is able to maintain NWB with 2 assist. Fatigues after about 40-50 seconds each time when standing in B UEs. Unable to ambulate at this time due to weakness. Pt able to scoot to HOB prior to laying down. Total Therapy Minutes 20 Total Physical Therapy Units 1 Daily Note Summary Progressed with exs today for improved strength. Pt unable to stand without Mod A x2 to maintain NWB. Pt will need to go to rehab at [facility] for pt to become Ind with transfer and gait prior to returning home.
--- NOTE | 2024-09-04 10:42 | P.DS_ITS ---
DS: Providers Provider Date of admission: 09/03/24 09:40 Primary care physician: Corey Simons MD Consults: 09/02/24 12:38 Consult to Product Inspection Supervisor Routine Has provider been notified: No Reason for consult:: Nursing Home Physical Therapy Eval and Treat Routine Reason for consultation: gait training - nonweight bearing right foot Has provider been notified: No 09/02/24 17:59 Consult to Product Inspection Supervisor Routine Reason for consult:: Nursing Home 09/02/24 18:00 Consult to Pharmacy Routine Consulting Provider: Reason for consultation: Please [place] me when Med Rec is Updated Has provider been notified: No Occupational Therapy Eval and Treat Routine Reason for consultation: Only if needed for Rehab Has provider been notified: No Physical Therapy Eval and Treat Routine Reason for consultation: Eval and Treat Has provider been notified: No DS: Diagnosis Discharge Diagnosis (1) Neuropathy: (2) Diabetes: (3) Arthritis: (4) Anemia: (5) Depression: (6) High cholesterol: (7) Hypertension: (8) Hypothyroidism: DS: Summary Hospital Course Hospital Course: Patient is admitted at the podiatric procedure. The following day she was still unable to ambulate safely. Her home medications were continued throughout the hospitalization. She does have a slight elevation in her creatinine, encouraged her to have her increase in p.o. intake. Per the operative report see details in report dictated by Dr. Singh. Then just the difficulty ambulating secondary to pain and balance. At this point she is medically stable for discharge. She is an excellent rehabilitation candidate. Medications see list. Follow-up with PCP after discharge she has had no complications Time Spent with Patient Time attestation: Total time spent providing and/or coordinating discharge services: Exam Constitutional Vital Signs, click to edit/add: Last Vital Signs Temp 98.3 F 09/04/24 08:00 Pulse 58 L 09/04/24 08:00 Resp 16 09/04/24 08:00 BP 105/50 09/04/24 09:14 Pulse Ox 94 L 09/04/24 08:00 O2 Del Method Room Air 09/04/24 08:00 O2 Flow Rate 1 09/02/24 17:47 Documenting provider has reviewed patient's vital signs: yes Common normals: no apparent distress Lymph Lymphatic: no lymphadenopathy noted Chest Common normals: inspection of chest normal and palpation of chest normal Respiratory Common normals: normal respiratory effort and no retractions Cardio Common normals: regular rate and regular rhythm GI Common normals: Normal to inspection, nondistended, normoactive bowel sounds present, soft to palpation and non-tender Back & Pelvis Common normals: thoracic and lumbar spine normal to inspection DS: Data Data Completed and Pending Labs on day of discharge: Labs from last 24 hours 09/04/24 09/04/24 09/03/24 08:26 05:11 22:31 WBC 7.9 RBC 3.51 L Hgb 10.5 L Hct 32.8 L MCV 93.4 MCH 29.9 MCHC 32.0 RDW 14.2 Plt Count 165 MPV 9.7 Neut % (Auto) 53.9 Lymph % (Auto) 34.6 [place] % (Auto) 9.1 Eos % (Auto) 1.5 Baso % (Auto) 0.6 Neut # (Auto) 4.3 Lymph # (Auto) 2.8 [place] # (Auto) 0.7 Eos # (Auto) 0.1 Baso # (Auto) 0.1 Abs Immat Gran (auto) 0.02 Imm/Tot Granulo (auto) 0.3 Sodium 140 Potassium 4.1 Chloride 104 Carbon Dioxide 28.7 Anion Gap 11.4 BUN 36.0 H Creatinine 1.46 H Est GFR ( Amer) 44 L Est GFR (Non-Af Amer) 36 L BUN/Creatinine Ratio 24.7 Glucose 130 H Calcium 9.3 C-Reactive Protein 4.24 H POC Glucose 128 H 137 H 09/03/24 09/03/24 16:15 11:49 WBC RBC Hgb Hct MCV MCH MCHC RDW Plt Count MPV Neut % (Auto) Lymph % (Auto) [place] % (Auto) Eos % (Auto) Baso % (Auto) Neut # (Auto) Lymph # (Auto) [place] # (Auto) Eos # (Auto) Baso # (Auto) Abs Immat Gran (auto) Imm/Tot Granulo (auto) Sodium Potassium Chloride Carbon Dioxide Anion Gap BUN Creatinine Est GFR ( Amer) Est GFR (Non-Af Amer) BUN/Creatinine Ratio Glucose Calcium C-Reactive Protein POC Glucose 110 H 159 H Discharge Plan Discharge Disposition: Xfer SNF Discharge Medications: New alendronate 70 mg Tablet 70 mg PO QWEEK@0730 Qty: 4 0RF Continued multivitamin [Daily Multi-Vitamin] Tablet 1 tab PO DAILY ipratropium-albuterol 0.5 mg-3 mg(2.5 mg base)/3 mL solution for nebulization 3 ml INHALATION Q8H PRN (Reason: shortness of breath or wheezing) albuterol sulfate 90 mcg/actuation HFA aerosol inhaler 2 inh INHALATION Q4H PRN (Reason: shortness of breath or wheezing) atorvastatin 20 mg tablet 20 mg PO DAILY citalopram 20 mg tablet 20 mg PO DAILY diclofenac sodium 75 mg tablet,delayed release (DR/EC) 75 mg PO Q12H duloxetine 30 mg capsule,delayed release(DR/EC) 30 mg PO DAILY fluticasone furoate-vilanterol [Breo Ellipta] 100-25 mcg/dose blister with device 1 inh INHALATION Q24H hydrochlorothiazide 12.5 mg capsule 12.5 mg PO DAILY levothyroxine 137 mcg tablet 137 mcg PO QPM losartan 50 mg tablet 50 mg PO BID montelukast 10 mg tablet 10 mg PO QPM omeprazole 20 mg capsule,delayed release(DR/EC) 20 mg PO DAILY oxybutynin chloride 15 mg tablet extended release 24hr 15 mg PO DAILY propranolol 80 mg capsule,extended release 24 hr 80 mg PO BID sumatriptan succinate 100 mg tablet 100 mg PO Q2H PRN (Reason: migraine headache) fexofenadine [Carla Allergy] 180 mg tablet 180 mg PO DAILY fluticasone propionate [24 Hour Allergy Relief] 50 mcg/actuation spray,suspension 1 spray intranasal DAILY PRN (Reason: allergy symptoms) Rx Instructions: administer into each nostril aspirin 81 mg capsule 81 mg PO DAILY Print Language: Divehi Forms: Portal Instructions
[2024-09-04] MEDS: BREO ELLIPTA 1 EACH IH (11:35)
[2024-09-04 11:41] LABS: Glucometer 132 mg/dL (74-106)
--- NOTE | 2024-09-04 12:10 | SWNOTE1 ---
Case management received a voicemail from insurance and a fax that pt is approved. SW sent the fax to Matt at [facility] to see if they received approval as well. They voiced they will send to there precert dept and confirm. SW waiting to hear back.
--- NOTE | 2024-09-04 12:47 | SWNOTE1 ---
HAIR emailed Ernestina and Geovanny at [employer] about [employer], but nobody is responding. HAIR called over to [employer] and spoke to Florinda. Florinda voiced they are still waiting on [employer] (there [email or web address] company to verify.) They will call once they get confirmation.
--- NOTE | 2024-09-04 12:50 | SWNOTE1 ---
HAIR then received a message from Geov[employer] and she did confirm that pt is approved. HAIR to work on transport.
--- NOTE | 2024-09-04 14:15 | SWNOTE1 ---
SW attempted transportation with [facility], [facility], and [facility] wheelchair, no availability. [facility] stated wheelchair will not be covered by her insurance. SW attempted to set up stretcher with [facility] but no availability. HAIR explained to pt that SW has not been able to find transport, but SW can try a few other places but it would be a stretcher and there is a chance insurance will not cover. Pt in agreement with SW trying stretcher. Pt is [facility]. HAIR called [facility] and they will be here around 2:45. HAIR notified [facility], nurse, and pt. SW did talk to pt about having someone potato picker her power chair as she will likely not need it at [facility] and they won't allow her to bring with her in ambulance. Pt in agreement and reaching out to daughter. HAIR did confirm with Debora (director covering med/surge) and she is alright with storing it here until family picks up. HAIR let nurse and pt know. HAIR faxed over dc med rec and dc summary to [facility]. HAIR completed [facility] online. Pt is going to [facility]. HAIR took packet to the floor.
--- NOTE | 2024-09-04 14:16 | PM.PN ---
Progress Note: Subjective Subjective Interval history: Patient is feeling well and not having any pain. She relates that the block wore off but pain is tolerable. Exam Narrative Exam Narrative: Splint is clean dry and intact. She is able to wiggle her toes. Capillary refill is brisk. Light touch sensation to dorsal toes is intact. No calf pain on squeeze Constitutional Vital Signs, click to edit/add: Last Vital Signs Temp 98 F 09/04/24 11:47 Pulse 65 09/04/24 11:47 Resp 14 09/04/24 11:47 BP 90/44 L 09/04/24 11:47 Pulse Ox 95 09/04/24 11:47 O2 Del Method Room Air 09/04/24 11:47 O2 Flow Rate 1 09/02/24 17:47 Progress Note: Objective Labs Labs: Short CBC 09/04/24 Range/Units 05:11 WBC 7.9 (4.0-11.0) 10^3/uL Hgb 10.5 L (12.0-16.0) g/dL Hct 32.8 L (36.0-48.0) % Plt Count 165 (150-450) 10^3/uL BMP 09/04/24 05:11 Sodium 140 Potassium 4.1 Chloride 104 Carbon Dioxide 28.7 BUN 36.0 H Creatinine 1.46 H Glucose 130 H Calcium 9.3 Progress Note: A&P Assessment and Plan (1) Neuropathy: (2) Diabetes: (3) Arthritis: (4) Anemia: (5) Depression: (6) High cholesterol: (7) Hypertension: (8) Hypothyroidism: Plan Okay for patient to be discharged to intermediate facility Prescription for [place] was placed in her chart and other orders will be sent to the facility through my office Patient will follow-up in my office next week to be transition to a cast Strict nonweightbearing to the operative foot Elevate the foot above the level of the heart as much as possible
== END 2024-09-04 15:30 ==
LOC: SURGOUT 10:53 → MS 10:53
PROVIDERS: Anesthesiology; Admitting Provider Family Medicine; PCP Family Medicine; Visit Provider Podiatrist Foot & Ankle Surgery
PROC: (CPT 27606; principal; 2024-09-02 12:30)
DX: E11.610 Type 2 diabetes mellitus with diabetic neuropathic arthropathy (principal); M21.071 Valgus deformity, not elsewhere classified, right ankle; M21.171 Varus deformity, not elsewhere classified, right ankle; M21.6X1 Other acquired deformities of right foot; M19.071 Primary osteoarthritis, right ankle and foot; M19.90 Unspecified osteoarthritis, unspecified site; D64.9 Anemia, unspecified; F32.A Depression, unspecified; E78.00 Pure hypercholesterolemia, unspecified; I10 Essential (primary) hypertension; E03.9 Hypothyroidism, unspecified; Z90.710 Acquired absence of both cervix and uterus; J44.9 Chronic obstructive pulmonary disease, unspecified; K21.9 Gastro-esophageal reflux disease without esophagitis; J30.2 Other seasonal allergic rhinitis; N32.89 Other specified disorders of bladder; G43.909 Migraine, unspecified, not intractable, without status migrainosus; E11.42 Type 2 diabetes mellitus with diabetic polyneuropathy; L97.511 Non-pressure chronic ulcer of other part of right foot limited to breakdown of skin; Z96.659 Presence of unspecified artificial knee joint
CPT/HCPCS: 27606; 28120; 28725; 28735; 36415; 64445; 64447; 73630; 76000; 80048; 82948; 85025; 86140; 88305; 88311; 94640; 94667; 94668; 94761; 96365; 96366; 96372; 96375; 97110; 97161; 97165; 97530; 97535; C1713; G0378; J0131; J0690; J1650; J1885; J2250; J2371; J2405; J2704; J2795; J3010

== ENCOUNTER 2024-09-23 13:51 | Outpatient (OUT) | payer OTHER, SELFPAY ==
--- NOTE | 2024-09-23 | XR_ITS ---
The [address] [address] Patient Name: LEVI SOFIA MRN: [id number] date: 1960 Sex: F Assigned Patient Location: [facility] Current Patient Location: Accession/Order Number: [id number] Exam Date: 09/23/2024 13:53 Report Date: 09/24/2024 07:54 At the request of: JULIO JOHNSON Procedure: XR foot RT min 3V PROCEDURE: XR foot RT min 3V COMPARISON: 09/03/2024 HISTORY: RIGHT FOOT PAIN FINDINGS: BONES:Moderate to severe stable degenerative changes of the midfoot and hindfoot with marked bony remodeling. Subtalar fusion with a single screw. 2 screws across the midfoot extending from the base of the first metatarsal into the talus. No significant interval bone formation is observed. SOFT TISSUES:Moderate soft tissue swelling EFFUSION:None visible. OTHER: Negative. XR/XR foot RT min 3V IMPRESSION: Stable fusion hardware with no significant bone formation Electronically authenticated by: NIKHIL GORE Date: 09/24/2024 07:54
--- OUTSIDE RECORDS SUMMARY | 2024-09-23 14:08 | XMS_ITS | CCD ---
Author Organization [facility] Care Team Providers Care Administration Assistant Name Role Phone Mara Beverly Primary Care Provider [phone] SYSTEM, PROVIDER NOT IN Attending Unavaila ble SYSTEM, PROVIDER NOT IN Referring Unavaila ble MARA BEVERLY Primary Care Unavailable SYSTEM, PROVIDER NOT IN Attending Unavaila ble SYSTEM, PROVIDER NOT IN Referring Unavaila ble MARA BEVERLY R Primary Care Unavailable Panda Beverlyer R Primary Care Provider Mara Beverly Primary Care Provider [phone] Senait Ochoa Unavailable CARLOS CARTER Attending Unavailable BROWN, CHRISTOPHER R Primary Care Unavailable EXTENCARLOS Attending Unavailable BROWN, CHRISTOPHER R Primary Care Unavailable PRYKHOCHRISTOPH, JAVIER SHAY Attending U navleeable SIRIA, CHRISTOPHER R Primary Care Unavailable EXTENCARLOS Attending Unavailable BROWN, CHRISTOPHER R Primary Care Unavailable BROWN, CHRISTOPHER R Admitting Unavailable GYROSCOPE TECHNICIANJASPREET CAMPBELL Attending Unavailab le BROWN, CHRISTOPHER R Referring Unavailable BROWN, CHRISTOPHER R Primary Care Unavailable GYROSCOPE TECHNICIANJASPREET CAMPBELL Attending Unavailab le BROWN, CHRISTOPHER R Primary Care Unavailable BROWN, CHRISTOPHER R Referring Unavailable PRYKHODKBonifacio, JAVIER SHAY Attending U navailable BROWN, CHRISTOPHER R Primary Care Unavailable BROWN, CHRISTOPHER R Referring Unavailable EXTENCARLOS Attending Unavailable BROWN, CHRISTOPHER R Primary Care Unavailable EXTENCARLOS Admitting Unavailable SENAIT OCHOA Attending Unavailable EXTENCARLOS Referring Unavailable BROWN, CHRISTOPHER R Primary Care Unavailable EXTENCARLOS Attending Unavailable BROWN, MICHELLEOPHER R Primary Care Unavailable EXTEN, ACRLOS GERBER Attending Unavailable EXTEN, CARLOS GERBER Referring Unavailable BROWN, CHRISTOPHER R Primary Care Unavailable EXTEN, CARLOS GERBER Attending Unavailable EXTEN, CARLOS FOREMANE Referring Unavailable BROWN, CHRISTOPHER R Primary Care Unavailable EXTEN, CARLOS GERBER Attending Unavailable EXTEN, CARLOS FOREMANE Referring Unavailable BROWN, CHRISTOPHER R Primary Care Unavailable EXTEN, CARLOS GERBER Attending Unavailable EXTEN, CARLOS GERBER Referring Unavailable BROWN, CHRISTOPHER R Primary Care Unavailable EXTEN, CARLOS GERBER Attending Unavailable EXTEN, CARLOSARABELLA FOREMANE Referring Unavailable BROWN, CHRISTOPHER R Primary Care Unavailable SENAIT OCHOA Admitting Unavailable SENAIT OCHOA Attending Unavailable PANDA BEVERLYER R Primary Care Unavailable Senait Ochoa Unavailable Mara BEVERLY Primary Care Physician Litzy Mack Unavailable Unavailable Lorna Almanzar Unavailable Unavailable JULIO JOHNSON Admitting Unavailable JULIO JOHNSON Attending Unavailable Jodi Pappas Consulting Unavailable JULIO JOHNSON Consulting Unavailable Mara BEVERLY Primary Care Physician [phone] Mara BEVERLY Admitting Unavailable Mara BEVERLY Attending Unavailable Yuniel Ocasio Attending Unavailable EMELYN POLK Attending Unavailable Mara BEVERLY Attending Unavailable Mara BEVERLY Admitting Unavailable BUBBA TURNER Attending Unavailable GRIMALDO, MELVA T Referring Unavailable MEDVES, DOLORES Calixto Attending Unavailable GRIMALDO, MELVA T Referring Unavailable TURNER, BUBBA Attending Unavailable GRIMALDO, MELVA T Referring Unavailable GRIMALDO, MELVA T Referring Unavailable GRIMALDO, MELVA T Attending Unavailable MEDVES, DOLORES [place] Attending Unavailable GRIMALDO, MELVA T Referring Unavailable TURNER, BUBBA Attending Unavailable GRIMALDO, MELVA T Referring Unavailable DEPOYDONG Attending Unavailable GRIMALDO, MELVA T Referring Unavailable TURNER, BUBBA Attending Unavailable GRIMALDO, MELVA T Referring Unavailable DEPOYDONG Attending Unavailable GRIMALDO, MELVA T Referring Unavailable GRIMALDO, MELVA T Referring Unavailable GRIMALDO, MELVA T Attending Unavailable GRIMALDO, MELVA T Referring Unavailable GRIMALDO, MELVA T Attending Unavailable GRIMALDO, MELVA T Referring Unavailable MEDVES, DOLORES [place] Attending Unavailable GRIMALDO, MELVA T Referring Unavailable DEPOY, DONG Attending Unavailable GRIMALDO, MELVA T Referring Unavailable TURNER, BUBBA Attending Unavailable GRIMALDO, MELVA T Referring Unavailable BUBBA TURNER Attending Unavailable GRIMALDO, MELVA T Referring Unavailable GRIMALDO, MELVA T Referring Unavailable HAILY SHEPARD Attending Unavailable Mara Beverly MD Primary Care Provider BROWN, Mara Attending Unavailable BROWN, Michelleophgreer Attending Unavailable BROWN, Christopher Admitting Unavailable BROWN, Christopher Attending Unavailable BROWN, Christopher Attending Unavailable BROWN, Christopher Attending Unavailable BROWN, Christopher Attending Unavailable Yuniel Ocasio Attending Unavailable BROWN, Mara Attending Unavailable BROWN, Christopher Referring Unavailable Farzad FRANCE Attending Unavailable Julio Johnson Attending Unavailable uJlio Johnson Admitting Unavailable Highlander Julio ESPARZA Attending Provider Melva Grimaldo Attending Unavailable Jc, Melva Edgar Referring Unavailable SIRIA, Mara Attending Unavailable SIRIA, Pandaer Referring Unavailable BROWN, Pandaer Referring Unavailable BROWN, Michelleopher Admitting Unavailable BROWN, Michelleophgreer Attending Unavailable BROWN, Mara Attending Unavailable Allergies Allergy Classification Reported Allergen(s) Allergy Type Date of Onset Reaction(s) Facility (20 sources) Amoxicillin / Clavulanate; Translations: [AMOXICILLIN-POT CLAVULANATE] Drug Allergy [address] [facility] (20 sources) Chlorzoxazone; Translations: [CHLORZOXAZONE] Drug Allergy 9 [facility] (20 sources) moxifloxacin; Translations: [MOXIFLOXACIN] Drug Allergy 9 [facility] (20 sources) Penicillins; Translations: [PENICILLINS] Propensity to adverse reactions to drug [address] [facility] (20 sources) Penicillin; Translations: [penicillin] Drug Allergy [facility] Comment on above: Tolerated ceftriaxon e during 12/2017 admission (20 sources) Penicillin V; Translations: [penicillin V potassium] Drug Allergy Unknown (qualifier value) [facility] (5 sources) Amoxicillin / Clavulanate; Translations: [Augmentin] Drug Allergy [facility] (1 source) moxifloxacin Drug Allergy [facility] (5 sources) Penicillin; Translations: [penicillin] Drug Allergy [facility] (1 source) Parafon Forte Drug allergy (disorder) [facility] (4 sources) moxifloxacin; Translations: [Avelox] Drug Allergy [facility] (4 sources) Antibiotic; Translations: [Antibiotic] Propensity to adverse reactions (disorder) [facility] (4 sources) Parafon Forte DSC; Translations: [Parafon Forte DSC] Propensity to adverse reactions (disorder) [facility] (2 sources) Chlorzoxazone Drug Allergy 9 Unknown [facility] Medications Current Medications Medication Drug Class(es) Dates Sig (Normalized) Sig (Original) [id number] 200 actuat albuterol 0.09 mg/actuat metered dose [...] wheezing, 25 EA, Refill(s) 0, dx. J45.41, [facility], 179, cm, 09/27/22 13:30:00 EST, Height/Length Dosing, 130, kg, 09/27/22 13:30:00 EST, Weight Dosing Start Date: 09/28/22 Status: Ordered Start: 08-09-2022 take 1 dose by inhal ation every six hours ProAir HFA 90 mcg/inh inhalation aerosol 2 puff(s), Inhalation, q6hr for wheezing, 1 EA, Refill(s) 1, [facility], 179, cm, 06/28/22 9:21:00 EDT, Height/Length [...] q6hr for wheezing, 1 EA, Refill(s) 1, [facility], 178, cm, 07/11/21 10:05:00 EDT, Height/Length Dosing, 127, kg, 07/11/21 10:05:00 EDT, Weight Dosing Start Date: 07/11/21 Status: Ordered Start: 08-05-2019 take 2.5 mg by inhal ation every six hours for wheezing albuterol 0.083% Inh Mamie 3 mL 2.5 mg, 3 mL, Inhalation, q6hr for wheezing, 25 EA, Refill(s) 0, [facility] Start Date: 08/05/19 Status: Ordered Start: 08-05-2019 take 2.5 mg by inhal ation every six hours for wheezing albuterol 0.083% Inh Mamie 3 mL 2.5 mg, 3 mL, Inhalation, q6hr for wheezing, 25 EA, Refill(s) 0, [facility] Start Date: 08/05/19 Status: Ordered Albuterol (Eqv-ProAir HFA) 90 mcg/inh inhalation aerosol (10 sources) Start: 2024 take 2 puff(s) by inhalation every six hours Albuterol (Eqv-ProAir HFA) 90 mcg/inh inhalation aerosol 2 puff(s), Inhalation, q6hr, 8 gm, Refill(s) 5, other reason (Rx) Start Date: 03/09/24 Status: Ordered albuterol 0.833 mg/ml / ipratropium bromide 0.167 mg/ml inhalation solution (12 sources) Anticholinergi c, beta2-Adrenerg ic Agonist Start: [...] day(s), # 30 tab(s), Refills(s) 0, Pharmacy: [facility], 177, cm, 05/16/23 13:32:00 EDT, Height/Length [...] tablet (20 sources) HMG-CoA Reductase Inhibitor Start: 08-04-2024 take 1 tablet by mouth once daily at bedtime atorvastatin 20 mg Tab 20 mg = 1 tab(s), Oral, Once a day (at bedtime), # 90 tab(s), Refills(s) 4, Pharmacy: [facility], 177, cm, 05/12/24 19:05:00 EDT, Height/Length Dosing, 125, kg, 05/12/24 18:58:00 EDT, Weight Dosing Start Date: 08/04/24 Status: Ordered Start: 04-27-2023 take 1 tablet by brendan th once daily at bedtime atorvastatin 20 mg Tab 20 mg = 1 tab(s), Oral, Once a day (at bedtime), # 90 tab(s), Refills(s) 1, Pharmacy: [facility], 177, cm, 03/24/24 22:52:00 EDT, Height/Length Dosing, 128, kg, 03/24/24 22:52:00 EDT, Weight Dosing Start Date: 04/07/24 Status: Ordered Start: 01-12-2023 take 1 tablet by brendan th once daily at bedtime atorvastatin 20 mg Tab 20 mg = 1 tab(s), Oral, Once a day (at bedtime), # 90 tab(s), Refills(s) 1, Pharmacy: [facility], 179, cm, 09/27/22 13:30:00 EST, Height/Length Dosing, 130, kg, 09/27/22 13:30:00 EST, Weight Dosing Start Date: 01/12/23 Status: Ordered Start: 08-03-2022 take 1 tablet by brendan th once daily at bedtime atorvastatin 20 mg Tab 20 mg = 1 tab(s), Oral, Once a day (at bedtime), # 90 tab(s), Refills(s) 1, Pharmacy: [facility], 179, cm, 06/28/22 9:21:00 EDT, Height/Length Dosing, 129, kg, 06/28/22 9:21:00 EDT, Weight Dosing Start Date: 08/03/22 Status: Ordered Start: 01-25-2022 take 1 tablet by brendan th once daily at bedtime atorvastatin 20 mg Tab 20 mg = 1 tab(s), Oral, Once a day (at bedtime), # 90 tab(s), Refills(s) 1, [id number], 178, cm, 12/22/21 10:58:00 EST, Height/Length Dosing, 127.4, kg, 12/22/21 10:58:00 EST, Weight Dosing Start Date: 01/25/22 Status: Ordered take 1 tablet by brendan th once daily atorvastatin (LIPITOR) 10 MG tablet Take 10 mg by mouth daily . 0 Active azithromycin 250 mg Tab 5-day Dose Pack (Z-Judah) (1 source) Start: 03-10-2024 End: 03-15-2024 azithromycin 250 mg Tab 5-day Dose Pack (Z-Judah) 250 mg = 1 tab(s), Oral, As Directed, as directed on package labeling, X 5 day(s), # 6 tab(s), Refills(s) 0, Pharmacy: [facility], 177, cm, 03/10/24 18:16:00 EDT, Height/Length [...] tab(s), Oral, Daily, 90 tab(s), Refill(s) 1, [facility] #[id number], 178, cm, 12/22/21 10:58:00 EST, Height/Length Dosing, 127.4, kg, 12/22/21 10:58:00 EST, Weight Dosing Start Date: 01/25/22 Status: Ordered take 1 tablet by brendan once daily bisoprolol-hydrochlorothiazide (ZIAC) 5- 6.25 mg per tablet Take 1 tablet by mouth daily . 0 Active brompheniramine maleate 0.4 mg/ml / dextromethorphan hydrobromide 2 mg/ml / pseudoephedrine hydrochloride 6 mg/ml oral solution (6 sources) alpha-Adrenergic Agonist, Uncompetitive N-pwakqb-F-aspartate Receptor Antagonist, Sigma-1 Agonist Start: 03-25-2024 take 5 mL by mouth four times daily for cough and congestion Bromfed DM oral syrup 5 mL, Oral, QID for cough and congestion, 200 mL, Refill(s) 0, [facility], 177, cm, 03/24/24 22:52:00 EDT, Height/Length [...] day(s), # 20 cap(s), Refills(s) 0, Pharmacy: [facility], 177, cm, 03/21/24 14:44:00 EDT, Height/Length [...] Daily, # 90 tab(s), Refills(s) 3, Pharmacy: [facility], 177, cm, 04/08/24 13:20:00 EDT, Height/Length Dosing, 125.7, kg, 04/08/24 13:18:00 EDT, Weight Dosing Start Date: 05/01/24 Status: Ordered Start: 11-23-2023 take 1 tablet by brendan th once daily citalopram 20 mg Tab 20 mg = 1 tab(s), Oral, Daily, # 90 tab(s), Refills(s) 1, Pharmacy: [facility], 178, cm, 10/17/23 14:51:00 EST, Height/Length Dosing, 127, kg, 10/17/23 14:51:00 EST, Weight Dosing Start Date: 11/23/23 Status: Ordered Start: 10-13-2021 take 1 tablet by brendan once daily citalopram 20 mg Tab 20 mg = 1 tab(s), Oral, Daily, # 90 tab(s), Refills(s) 1, Pharmacy: [facility], 177, cm, 03/23/23 10:36:00 EDT, Height/Length Dosing, 132, kg, 03/23/23 10:36:00 EDT, Weight Dosing Start Date: 04/23/23 Status: Ordered clindamycin 300 mg oral capsule (3 sources) Lincosamide Antibacterial Start: 04-02-2024 End: 04-12-2024 take 1 capsule by mouth every six hours clindamycin 300 mg oral cap 300 mg = 1 cap(s), Oral, q6hr, X 10 day(s), # 40 cap(s), Refills(s) 0, Pharmacy: [facility] #[id number], 177, cm, 03/24/24 22:52:00 EDT, Height/Length Dosing, [...] Daily, Prophylaxis Start Date: 07/30/12 Status: Ordered docusate sodium 100 mg oral capsule (17 sources) Start: 03-29-2023 take 1 capsule by mouth twice daily Colace 100 mg Cap 100 mg = 1 cap(s), Oral, BID, # 20 cap(s), Refills(s) 0, Pharmacy: [facility], 177, cm, 05/16/23 13:32:00 EDT, Height/Length Dosing, 127, kg, 05/16/23 13:31:00 EDT, Weight Dosing Start Date: 05/16/23 Status: Ordered doxycycline hyclate 100 mg oral capsule (3 sources) Tetracycline- class Drug Start: 10-17-2023 take 1 capsule by mouth twice daily doxycycline hyclate 100 mg Cap 100 mg = 1 cap(s), Oral, BID, # 20 cap(s), Refills(s) 0, Pharmacy: [facility], 178, cm, 10/17/23 14:51:00 EST, Height/Length Dosing, 127, kg, 10/17/23 14:51:00 EST, Weight Dosing Start Date: 10/17/23 Status: Ordered Start: 01-19-2023 End: 01-26-2023 take 1 capsule by mouth twice daily doxycycline hyclate 100 mg Cap 100 mg = 1 cap(s), Oral, BID, X 7 day(s), # 14 cap(s), Refills(s) 0, Pharmacy: [facility], 179, cm, 01/19/23 16:50:00 EDT, Height/Length [...] Daily, # 90 cap(s), Refills(s) 3, Pharmacy: [facility], 177, cm, 12/10/23 18:47:00 EST, Height/Length Dosing, 124, kg, 12/10/23 18:47:00 EST, Weight Dosing Start Date: 02/13/24 Status: Ordered DULoxetine 30 mg Cap-EC (1 source) Start: 01-25-2022 take 1 capsule by mouth once daily DULoxetine 30 mg Cap-EC 30 mg = 1 cap(s), Oral, Daily, # 90 cap(s), Refills(s) 1, Pharmacy: [facility] #[id number], 178, cm, 12/22/21 10:58:00 EST, Height/Length Dosing, 127.4, kg, 12/22/21 10:58:00 EST, Weight Dosing Start Date: 01/25/22 Status: Ordered 168 hr estradiol 0.04961 mg/hr transdermal system (20 sources) Estrogen estradiol [...] symptoms Start Date: 04/13/20 Status: Ordered fluticasone / vilanterol (14 sources) Corticosteroid, beta2-Adrenergic Agonist Start: 10-12-2023 take 1 puff(s) by inhalation once daily Breo Ellipta 100 mcg-25 mcg inhalation powder 1 puff(s), Inhalation, Daily, 1 EA, Refill(s) 11, 30 dose unit, [facility] #[facility], 177, cm, 05/16/23 13:32:00 EDT, Height/Length Dosing, 127, kg, 05/16/23 13:31:00 EDT, Weight Dosing Start Date: 10/12/23 Status: Ordered Breo Ellipta 100 -25 MCG/ACT aerosol powder Active hydroCHLOROthiazide 12.5 mg oral capsule (20 sources) Thiazide Diuretic Start: 04-09-2024 take 1 capsule by mouth once daily hydrochlorothiazide 12.5 mg Cap 12.5 mg = 1 cap(s), Oral, Daily, # 90 cap(s), Refills(s) 1, Pharmacy: [facility], 177, cm, 04/08/24 13:20:00 EDT, Height/Length Dosing, 125.7, kg, 04/08/24 13:18:00 EDT, Weight Dosing Start Date: 04/09/24 Status: Ordered Start: 08-22-2022 End: 08-17-2023 hydroCHLOROthiazide (Microzi de) 12.5 MG capsule 05/01/2023 Active levothyroxine sodium 0.137 mg oral tablet (20 sources) l-Thyroxine Start: 08-28-2023 take 1 tablet by mouth in the morning levothyroxine (Synthroid, Levoxyl) 137 MCG tablet Take 137 mcg by mouth in the morning. 08/28/2023 Active Start: 07-25-2022 End: 10-19-2035 take 1 tablet by mouth once daily levothyroxine 137 mcg (0.137 mg) Tab See Instructions, TAKE 1 TABLET BY MOUTH EVERY DAY, # 90 tab(s), Refills(s) 4, Pharmacy: [facility], 177, cm, 05/12/24 19:05:00 EDT, Height/Length Dosing, 125, kg, 05/12/24 18:58:00 EDT, Weight Dosing Start Date: 07/30/24 Status: Ordered Start: 01-25-2022 take 1 tablet by brendan th once daily levothyroxine 137 mcg (0.137 mg) Tab 137 microgram = 1 tab(s), Oral, Daily, # 90 tab(s), Refills(s) 1, Pharmacy: [facility] #[id number], 178, cm, 12/22/21 10:58:00 EST, Height/Length Dosing, 127.4, kg, 12/22/21 10:58:00 EST, Weight Dosing Start Date: 01/25/22 Status: Ordered take 1 tablet by brendan once daily levothyroxine (LEVO-T) 137 MCG tablet Take 137 mcg by mouth once daily . 0 Active losartan potassium 50 mg oral tablet (20 sources) Angiotensin 2 Receptor Miki Start: 04-27-2023 take 1 tablet by mouth twice daily losartan 50 mg Tab 50 mg = 1 tab(s), Oral, BID, # 180 tab(s), Refills(s) 4, Pharmacy: [facility], 177, cm, 04/08/24 13:20:00 EDT, Height/Length Dosing, 125.7, kg, 04/08/24 13:18:00 EDT, Weight Dosing Start Date: 05/12/24 Status: Ordered Start: 08-17-2022 take 1 tablet by [facility] twice daily losartan 50 mg Tab 50 mg = 1 tab(s), Oral, BID, # 180 tab(s), Refills(s) 3, Pharmacy: [facility], 179, cm, 08/12/22 12:43:00 EDT, Height/Length Dosing, 129, kg, 08/12/22 12:43:00 EDT, Weight Dosing Start Date: 08/17/22 Status: Ordered Start: 08-07-2022 take 1 tablet by [facility] twice daily losartan 50 mg Tab 50 mg = 1 tab(s), Oral, BID, # 60 tab(s), Refills(s) 5, Pharmacy: [facility] #[id number], 179, cm, 06/28/22 9:21:00 EDT, Height/Length Dosing, 129, kg, 06/28/22 9:21:00 EDT, Weight Dosing Start Date: 08/07/22 Status: Ordered Start: 07-19-2022 take 1 tablet by [facility] once daily losartan 50 mg Tab 50 mg = 1 tab(s), Oral, Daily, # 30 tab(s), Refills(s) 5, Pharmacy: [facility] #[id number], 179, cm, 06/28/22 9:21:00 EDT, Height/Length Dosing, 129, kg, 06/28/22 9:21:00 EDT, Weight Dosing Start Date: 07/19/22 Status: Ordered Start: 06-28-2022 take 1 tablet by brendan once daily losartan 25 mg Tab 25 mg = 1 tab(s), Oral, Daily, # 30 tab(s), Refills(s) 5, Pharmacy: [facility], 179, cm, 06/28/22 9:21:00 EDT, Height/Length Dosing, 129, kg, 06/28/22 9:21:00 EDT, Weight Dosing Start Date: 06/28/22 Status: Ordered methylPREDNISolone 4 mg oral tablet (3 sources) Corticosteroid Start: 03-18-2024 End: 03-24-2024 Medrol Dosepack 4 mg Tab = 1 packet(s), Oral, As Directed, as directed on package labeling, X 6 day(s), # 21 tab(s), Refills(s) 0, Pharmacy: [facility], 177, cm, 03/10/24 18:16:00 EDT, Height/Length Dosing, 128.6, kg, 03/10/24 18:16:00 EDT, Weight Dosing Start Date: 03/18/24 Stop Date: 03/24/24 Status: Ordered methylPREDNISolo ne (Medrol Dospak) 4 MG tablets Active multivitamin (THERAGRAN) per tablet (20 sources) [...] Start Date: 04/11/20 Status: Ordered Nebulizer Machine (16 sources) Start: 09-28-2022 Nebulizer Mach ine Nebulizer Machine, See Instructions, 1 EA, 0, use with medication for inhalaiton dx.J45.41, [facility], [facility], 179, cm, 09/27/22 13:30:00 EST, Height/Length Dosing, 130, kg, 09/27/22 13:30:00 EST, Weight Dosing Start Date: 09/28/22 Status: Ordered Nebulizer machine tubing/ kit (16 sources) Start: 09-28-2022 Nebulizer mach ine tubing/ kit Nebulizer machine tubing/ kit, See Instructions, 1 EA, 0, use with nebulizer medication dx. J45.41, [facility], Supply, 179, cm, 09/27/22 13:30:00 EST, Height/Length Dosing, 130, kg, 09/27/22 13:30:00 EST, Weight Dosing Start Date: 09/28/22 Status: Ordered omeprazole 20 mg delayed release oral capsule (20 sources) Proton Pump Inhibitor Start: 12-20-2022 take 1 capsule by mouth once daily omeprazole 20 mg Cap-DR See Instructions, TAKE 1 CAPSULE BY MOUTH EVERY DAY, # 90 cap(s), Refills(s) 4, Pharmacy: [facility], 177, cm, 05/12/24 19:05:00 EDT, Height/Length Dosing, 125, kg, 05/12/24 18:58:00 EDT, Weight Dosing Start Date: 06/02/24 Status: Ordered Start: 07-13-2022 take 1 capsule by [facility] once daily omeprazole 20 mg Cap-DR 20 mg = 1 cap(s), Oral, Daily, # 90 cap(s), Refills(s) 1, Pharmacy: [facility], 179, cm, 06/28/22 9:21:00 EDT, Height/Length Dosing, 129, kg, 06/28/22 9:21:00 EDT, Weight Dosing Start Date: 07/13/22 Status: Ordered Start: 03-27-2022 take 1 capsule by [facility] once daily omeprazole 20 mg Cap-DR 20 mg = 1 cap(s), Oral, Daily, # 90 cap(s), Refills(s) 1, Pharmacy: [facility] #[id number], 178, cm, 03/14/22 10:26:00 EDT, Height/Length Dosing, 126.9, kg, 03/14/22 10:26:00 EDT, Weight Dosing Start Date: 03/27/22 Status: Ordered take 1 capsule by [facility] once daily omeprazole (PRILOSEC) 20 MG capsule Take 20 mg by mouth daily . 0 Active omeprazole 20 mg Cap-DR (2 sources) Start: 10-13-2021 take 1 capsule by mouth once daily omeprazole 20 mg Cap-DR 20 mg = 1 cap(s), Oral, Daily, # 90 cap(s), Refills(s) 1, Pharmacy: [facility] #[id number], 178, cm, 09/13/21 10:38:00 EST, Height/Length Dosing, 130.6, kg, 09/13/21 10:28:00 EST, Weight Dosing Start Date: 10/13/21 Status: Ordered 24 hr oxybutynin chloride 15 mg extended release oral tablet (20 sources) Cholinergic Muscarinic Antagonist Start: 05-28-2024 take 1 tablet by mouth once daily oxybutynin 15 mg ER Tab 15 mg = 1 tab(s), Oral, Daily, # 90 tab(s), Refills(s) 4, Pharmacy: [facility], 177, cm, 05/12/24 19:05:00 EDT, Height/Length Dosing, 125, kg, 05/12/24 18:58:00 EDT, Weight Dosing Start Date: 05/28/24 Status: Ordered Start: 10-10-2023 take 1 tablet by [facility] once daily oxybutynin 15 mg ER Tab 15 mg = 1 tab(s), Oral, Daily, # 90 tab(s), Refills(s) 1, Pharmacy: [facility], 177, cm, 05/16/23 13:32:00 EDT, Height/Length Dosing, 127, kg, 05/16/23 13:31:00 EDT, Weight Dosing Start Date: 10/10/23 Status: Ordered Start: 05-01-2023 oxybutynin XL (Ditropan-XL) 15 MG 24 hr tablet 05/01/2023 Active Start: 12-20-2022 [facility] 15 mg ER Tab 15 mg = 1 tab(s), Oral, Daily, # 90 tab(s), Refills(s) 1, Pharmacy: [facility], 179, cm, 09/27/22 13:30:00 EST, Height/Length Dosing, 130, kg, 09/27/22 13:30:00 EST, Weight Dosing Start Date: 12/20/22 Status: Ordered Start: 04-17-2022 take 1 tablet by [facility] once daily oxybutynin 15 mg ER Tab 15 mg = 1 tab(s), Oral, Daily, # 90 tab(s), Refills(s) 1, Pharmacy: [facility] #[id number], 178, cm, 03/14/22 10:26:00 EDT, Height/Length Dosing, 126.9, kg, 03/14/22 10:26:00 EDT, Weight Dosing Start Date: 04/17/22 Status: Ordered Start: 01-11-2022 take 1 tablet by [facility] once daily oxybutynin 15 mg ER Tab 15 mg = 1 tab(s), Oral, Daily, # 90 tab(s), Refills(s) 1, Pharmacy: [facility] #[id number], 178, cm, 12/22/21 10:58:00 EST, Height/Length Dosing, 127.4, kg, 12/22/21 10:58:00 EST, Weight Dosing Start Date: 01/11/22 Status: Ordered take 1 tablet by brendan once daily oxybutynin (DITROPAN) 5 MG tablet Take 5 mg by mouth daily . 0 Active take 1 tablet by brendan three times daily oxybutynin (DITROPAN) 5 MG tablet Take 5 mg by mouth 3 (three) times a day . 0 Active pantoprazole 40 mg delayed release oral tablet (1 source) Proton Pump Inhibitor Start: 06-23-2022 take 1 tablet by mouth once daily pantoprazole 40 mg Oral EC Tab 40 mg = 1 tab(s), Oral, Daily, # 90 tab(s), Refills(s) 1, Pharmacy: [facility], 179, cm, 05/18/22 15:39:00 EDT, Height/Length Dosing, 129, kg, 05/18/22 15:39:00 EDT, Weight Dosing Start Date: 06/23/22 Status: Ordered permethrin 50 mg/ml topical cream (7 sources) Pyrethroid Start: 04-08-2024 permethrin (Elimite) 5 % cream apply topically once as directed 04/08/2024 Active Start: 04-08-2024 permethrin Top 5% C[facility] [place], Topical, Once, 60 gram, Refill(s) 0, [facility], 177, cm, 04/08/24 13:20:00 EDT, Height/Length Dosing, 125.7, kg, 04/08/24 13:18:00 EDT, Weight Dosing Start Date: 04/08/24 Status: Ordered predniSONE 20 mg oral tablet (3 sources) Start: 03-07-2024 End: 03-14-2024 take 2 tablets by mouth once daily predniSONE 20 mg Tab 40 mg = 2 tab(s), Oral, Daily, X 7 day(s), # 14 tab(s), Refills(s) 0, Pharmacy: [facility], 177, cm, 12/10/23 18:47:00 EST, Height/Length [...] days, # 12 tab(s), Refills(s) 0, Pharmacy: [facility] #37, 179, cm, 08/12/22 12:43:00 EDT, Height/Length [...] mouth twice daily propranolol 80 mg Cap-ER See Instructions, TAKE 1 CAPSULE BY MOUTH TWICE DAILY, # 180 cap(s), Refills(s) 4, Pharmacy: [facility] #[facility], 177, cm, 05/12/24 19:05:00 EDT, Height/Length Dosing, 125, kg, 05/12/24 18:58:00 EDT, Weight Dosing Start Date: 07/02/24 Status: Ordered Start: 12-31-2023 take 1 capsule by [facility] twice daily propranolol 80 mg Cap-ER 80 mg = 1 cap(s), Oral, BID, # 180 cap(s), Refills(s) 1, Pharmacy: [facility] #37, 177, cm, 12/10/23 18:47:00 EST, Height/Length Dosing, 124, kg, 12/10/23 18:47:00 EST, Weight Dosing Start Date: 12/31/23 Status: Ordered Start: 06-18-2023 take 1 capsule by [facility] twice daily propranolol 80 mg Cap-ER 80 mg = 1 cap(s), Oral, BID, # 180 cap(s), Refills(s) 1, Pharmacy: [facility] #37, 177, cm, 05/16/23 13:32:00 EDT, Height/Length Dosing, 127, kg, 05/16/23 13:31:00 EDT, Weight Dosing Start Date: 06/18/23 Status: Ordered Start: 05-01-2023 propranolol LA (Inderal LA) 80 MG 24 hr capsule 05/01/2023 Active Start: 12-20-2022 take 1 capsule by [facility] twice daily propranolol 80 mg Cap-ER 80 mg = 1 cap(s), Oral, BID, # 180 cap(s), Refills(s) 1, Pharmacy: [facility] #37, 179, cm, 09/27/22 13:30:00 EST, Height/Length Dosing, 130, kg, 09/27/22 13:30:00 EST, Weight Dosing Start Date: 12/20/22 Status: Ordered Start: 07-13-2022 take 1 capsule by [facility] twice daily propranolol 80 mg Cap-ER 80 mg = 1 cap(s), Oral, BID, # 60 cap(s), Refills(s) 5, Pharmacy: [facility] #37, 179, cm, 06/28/22 9:21:00 EDT, Height/Length Dosing, 129, kg, 06/28/22 9:21:00 EDT, Weight Dosing Start Date: 07/13/22 Status: Ordered Start: 04-11-2022 take 1 capsule by [facility] twice daily propranolol 80 mg Cap-ER 80 mg = 1 cap(s), Oral, BID, # 180 cap(s), Refills(s) 1, Pharmacy: [facility] #[id number], 178, cm, 03/14/22 10:26:00 EDT, Height/Length Dosing, 126.9, kg, 03/14/22 10:26:00 EDT, Weight Dosing Start Date: 04/11/22 Status: Ordered Start: 04-11-2022 take 1 capsule by [facility] once daily propranolol 80 mg Cap-ER 80 mg = 1 cap(s), Oral, Daily, # 90 cap(s), Refills(s) 1, Pharmacy: [facility] #[id number], 178, cm, 03/14/22 10:26:00 EDT, Height/Length Dosing, 126.9, kg, 03/14/22 10:26:00 EDT, Weight Dosing Start Date: 04/11/22 Status: Ordered sulfamethoxazole 800 mg / trimethoprim 160 mg oral tablet (5 sources) Dihydrofolate Reductase Inhibitor Antibacterial, Sulfonamide Antimicrobial Start: 05-16-2023 End: 05-31-2023 Bactrim D.S. 800 mg-160 mg Tab 1 tab(s), Oral, BID for 14 day(s), 28 tab(s), Refill(s) 0, [facility] #[facility], 177, cm, 05/16/23 13:32:00 EDT, Height/Length Dosing, 127, kg, 05/16/23 13:31:00 EDT, Weight Dosing Start Date: 05/17/23 Stop Date: 05/31/23 Status: Ordered Start: 07-06-2020 sulfamethoxazo le-trimethoprim (BACTRIM DS,SEPTRA DS) 800-160 mg per tablet 2 (two) times a day . 0 07/06/2020 Active SUMAtriptan 100 mg oral tablet (20 sources) Serotonin-1b and Serotonin-1d Receptor Agonist Start: 12-10-2023 take 1 tablet by mouth every hour as needed for headache SUMAtriptan 100 mg Tab 100 mg = 1 tab(s), Oral, As Directed, PRN Migraine headache, Take at onset of migraine. May repeat dose in 1 hour if no relief, # 9 tab(s), Refills(s) 3, Pharmacy: [facility] #37, 177, cm, 12/10/23 18:47:00 EST, Height/Length [...] relief, # 9 tab(s), Refills(s) 0, Pharmacy: [facility] #37, 179, cm, 01/19/23 16:50:00 EDT, Height/Length [...] puff(s), Inhalation, BID, 3 EA, Refill(s) 1, [facility], 179, cm, 05/18/22 15:39:00 EDT, Height/Length Dosing, 129, kg, 05/18/22 15:39:00 EDT, Weight Dosing Start Date: 06/08/22 Status: Ordered Start: 07-11-2021 take 2 puff(s) by in halation twice daily Symbicort 160/4.5 inhalation aerosol with adapter 2 puff(s), Inhalation, BID, 3 EA, Refill(s) 1, [facility], 178, cm, 07/11/21 10:05:00 EDT, Height/Length [...] 0, 1-2 po q 4 prn pain, [facility], 177, cm, 05/16/23 13:32:00 EDT, Height/Length Dosing, 127, kg, 05/16/23 13:31:00 EDT, Weight Dosing Start Date: 05/16/23 Status: Ordered Start: 03-29-2023 take 1-2 tablets by mouth every four hours as needed for pain Percocet 5 mg-325 mg oral tablet See Instructions, 50 tab(s), Refill(s) 0, Take one to two every 4 hours as needed for pain., [facility] #37, 177, cm, 05/16/23 13:32:00 EDT, Height/Length Dosing, 127, kg, 05/16/23 13:31:00 EDT, Weight Dosing Start Date: 05/17/23 Status: Ordered diclofenac sodium 75 mg delayed release oral tablet (18 sources) Nonsteroidal Anti-inflammatory Drug Start: 08-19-2024 diclofenac sodium 75 mg Oral EC Tab 60 EA, 0 Refill(s), TAKE 1 TABLET BY MOUTH TWICE DAILY, Refills(s) 0 Start Date: 08/19/24 Status: Ordered Start: 11-29-2022 take 1 tablet by brendan th twice daily diclofenac sodium 75 mg Oral EC Tab 75 mg = 1 tab(s), Oral, BID, # 180 tab(s), Refills(s) 3, Pharmacy: [facility] #37, 177, cm, 12/10/23 18:47:00 EST, Height/Length Dosing, 124, kg, 12/10/23 18:47:00 EST, Weight Dosing Start Date: 12/25/23 Status: Ordered fluconazole 150 mg oral tablet (20 sources) Azole Antifungal Start: 04-02-2024 take 1 tablet by mouth once fluconazole 150 mg Tab 150 mg = 1 tab(s), Oral, Once, one tab to be taken once, # 1 tab(s), Refills(s) 0, [facility] #[id number], 177, cm, 03/24/24 22:52:00 EDT, Height/Length Dosing, 128, kg, 03/24/24 22:52:00 EDT, Weight Dosing Start Date: 04/02/24 Status: Ordered Start: 03-24-2024 take 1 tablet by mouth once fl uconazole 150 mg Tab 150 mg = 1 tab(s), Oral, Once, one tab to be taken once, # 1 tab(s), Refills(s) 0, Pharmacy: [facility] #37, 177, cm, 03/21/24 14:44:00 EDT, Height/Length Dosing, 128.6, kg, 03/21/24 14:47:00 EDT, Weight Dosing Start Date: 6/3/24 Status: Ordered Start: 03-29-2023 Diflucan 150 m g Tab See Instructions, Take one po q 3 day as needed for post op yeast, # 2 caplet(s), Refills(s) 0, Pharmacy: [facility] #37, 177, cm, 03/10/24 18:16:00 EDT, Height/Length Dosing, 128.6, kg, 03/10/24 18:16:00 EDT, Weight Dosing Start Date: 03/10/24 Status: Ordered Start: 01-19-2023 take 1 tablet by mouth once Di flucan 150 mg Tab 150 mg = 1 tab(s), Oral, Once, 1 tab now and 1 after antibiotics if needed, # 2 tab(s), Refills(s) 0, Pharmacy: [facility] #37, 179, cm, 01/19/23 16:50:00 EDT, Height/Length Dosing, 133.5, kg, 01/19/23 16:50:00 EDT, Weight Dosing Start Date: 01/19/23 Status: Ordered Start: 12-22-2021 take 1 tablet by mouth once fl uconazole 150 mg Tab 150 mg = 1 tab(s), Oral, Once, # 1 tab(s), Refills(s) 1, Pharmacy: [facility] #[id number], 178, cm, 12/22/21 10:58:00 EST, Height/Length Dosing, 127.4, kg, 12/22/21 10:58:00 EST, Weight Dosing Start Date: 12/22/21 Status: Ordered fluticasone (20 sources) Corticosteroid Start: 05-22-2024 take 2 spray(s) nasal route once daily fluticasone (VERAMYST) 27.5 mcg/actuation nasal spray Instill 2 sprays into each nostril daily . 0 Active montelukast 10 mg oral tablet (20 sources) Leukotriene Receptor Antagonist Start: 07-25-2022 End: 10-19-2035 montelukast 10 mg Tab 30 EA, 0 Refill(s), TAKE 1 TABLET BY MOUTH EVERY DAY IN THE EVENING, Refills(s) 0 Start Date: 08/19/24 Status: Ordered Start: 01-25-2022 take 1 tablet by rbendan once daily in the evening montelukast 10 mg Tab 10 mg = 1 tab(s), Oral, qPM, # 90 tab(s), Refills(s) 1, Pharmacy: [facility] #[id number], 178, cm, 12/22/21 10:58:00 EST, Height/Length Dosing, 127.4, kg, 12/22/21 10:58:00 EST, Weight Dosing Start Date: 01/25/22 Status: Ordered take 1 tablet by [facility] once daily montelukast (SINGULAIR) 10 mg tablet Take 10 mg by mouth nightly . 0 Active Nasacort Allergy 24HR nasal spray (2 sources) Start: 01-25-2021 Nasacort Aller gy 24HR nasal spray 110 mcg, 2 spray(s), Nasal, Daily, 3 EA, Refill(s) 1, [facility] #[id number], 178, cm, 12/16/20 10:55:00 EST, Height/Length Dosing, 125, kg, 12/16/20 10:55:00 EST, Weight Dosing Start Date: 01/25/21 Status: Ordered ProAir HFA 90 mcg/inh inhalation aerosol (8 sources) Start: 08-09-2022 take 1 dose by inhalation every six hours ProAir HFA 90 mcg/inh inhalation aerosol 2 puff(s), Inhalation, q6hr for wheezing, 1 EA, Refill(s) 1, [facility] #[facility], 179, cm, 06/28/22 9:21:00 EDT, Height/Length Dosing, 129, kg, 06/28/22 9:21:00 EDT, Weight Dosing Start Date: 08/09/22 Status: Ordered Start: 07-11-2021 take 2 puff(s) by in halation every six hours for wheezing ProAir HFA 90 mcg/inh inhalation aerosol 2 puff(s), Inhalation, q6hr for wheezing, 1 EA, Refill(s) 1, [facility], 178, cm, 07/11/21 10:05:00 EDT, Height/Length Dosing, 127, kg, 07/11/21 10:05:00 EDT, Weight Dosing Start Date: 07/11/21 Status: Ordered triamcinolone acetonide 0.055 mg/actuat metered dose nasal spray (20 sources) Corticosteroid Start: 01-25-2021 Nasacort Aller gy 24HR nasal spray 110 mcg, 2 spray(s), Nasal, Daily, 3 EA, Refill(s) [id number], 178, cm, 12/16/20 10:55:00 EST, Height/Length Dosing, [...] Problem Classification Problem Date Documented Date Episodic/Chronic Administrative/soci al admission (1 source) Reduced mobility; Translations: [Other reduced mobility] Onset: 08-19-20 Episodic Asthma (20 sources) Asthma; Translations: [Unspecified asthma, uncomplicated] Onset: 03-13-20 Resolved : 08-05-20 Chronic Cataract (1 source) Artificial lens present; Translations: [Presence of intraocular lens] 07-29-2024 Chronic Chronic kidney disease (7 sources) Chronic kidney disease stage 3A ; Translations: [Chronic kidney disease, stage 3a] Onset: 05-10-20 Chronic Deficiency and other anemia (1 source) Iron deficiency anemia 05-20-2019 Episodic Diabetes mellitus with complications (6 sources) Complication due to diabetes mellitus; Translations: [Type 2 diabetes mellitus with other specified complication] Onset: 05-10-20 Chronic Diabetes mellitus without complication (16 sources) Diabetes mellitus; Translations: [Type 2 diabetes mellitus] 05-10-2024 Chronic Diabetes mellitus without complication (20 sources) Hyperglycemia; Translations: [Impaired fasting glycemia] Onset: 03-13-20 22 11-18-2020 Episodic Disorders of lipid metabolism (20 sources) Hyperlipidemia; Translations: [Mixed hyperlipidemia] Onset: 03-13-20 22 05-19-2020 Chronic Disorders of teeth and jaw (20 sources) Toothache; Translations: [Arthralgia of temporomandibular joint] Onset: 12-10-19 24 05-19-2020 Episodic E Codes: Natural/environment (1 source) Bite of nonvenomous arthropod; Translations: [Bitten or stung by nonvenomous insect and other nonvenomous arthropods, initial encounter] Onset: 04-08-20 Episodic Esophageal disorders (20 sources) Acid reflux; Translations: [Gastroesophageal reflux disease] Onset: 03-13-20 22 04-06-2015 Chronic Essential hypertension (20 sources) Essential hypertension; Translations: [Essential (primary) hypertension] Onset: 03-13-20 Chronic Gout and other crystal arthropathies (20 sources) Gout 05-20-2019 Chronic Headache; including migraine (20 sources) Migraine; Translations: [Migraine, unspecified, not intractable, without status migrainosus] Onset: 08-27-2005-20-2019 Chronic Hypertension with complications and secondary hypertension (7 sources) Chronic kidney disease due to hypertension; [...] unspecified knee] Onset: 05-16-20 Chronic Menopausal disorders (6 sources) Primary ovarian failure; Translations: [Other primary ovarian failure] Onset: 05-10-20 Chronic Mood disorders (20 sources) Major depressive disorder; Translations: [Major depressive disorder, single episode, unspecified] Onset: 03-13-20 Resolved : 03-31-20 Chronic Nonspecific chest pain (10 sources) Chest pain; Translations: [Other chest pain] Onset: 04-25-20 Episodic Nutritional deficiencies (11 sources) Decreased vitamin D 12-10-2023 Chronic Osteoarthritis (18 sources) Osteoarthritis of knee; Translations: [Unilateral primary osteoarthritis, left knee] Onset: 03-15-20 Chronic Other aftercare (2 sources) Patient encounter status; Translations: [Aftercare following joint replacement surgery] Onset: 06-19-20 23 06-19-2023 Chronic Other aftercare (1 source) Follow-up orthopedic assessment; Translations: [Aftercare following joint replacement surgery] Chronic Other and unspecified benign neoplasm (20 sources) History of polyp of colon 08-02-2021 Episod ic Other congenital anomalies (1 source) Congenital deformity of foot; Translations: [Other specified congenital deformities of feet] Chronic Other connective tissue disease (4 sources) Artificial knee joint present; Translations: [Presence of right artificial knee joint] Onset: 04-05-20 Chronic Other diseases of bladder and urethra (20 sources) Detrusor overactivity; Translations: [Overactive bladder] Onset: 03-13-20 22 03-06-2021 Chronic Other nervous system disorders (5 sources) Neuropathy; Translations: [Neuropathy, idiopathic] Chronic Other nervous system disorders (1 source) Hereditary motor and sensory neuropathy; 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 Other nervous system disorders (1 source) Abnormal gait; Translations: [Unspecified abnormalities of gait and mobility] Episodic Other nervous system disorders (1 source) Postoperative pain ; Translations: [Other acute postprocedural pain] Episodic Other non-traumatic joint disorders (20 sources) Charcot's joint, left ankle and foot; Translations: [Charcot's joint of foot] Onset: 07-13-20 20 07-13-2020 Chronic Other non-traumatic joint disorders (20 sources) Charcot's arthropathy; Translations: [Charcot's joint, left ankle and foot] Onset: 03-13-20 22 03-31-2019 Chronic Comment on above: left Other non-traumatic joint disorders (1 source) Ankle pain 05-20-2020 Episodic Other non-traumatic joint disorders (20 sources) Rotator cuff arthropathy of right shoulder 09-13-2021 Episodic Other non-traumatic joint disorders (20 sources) Shoulder joint pain 05-19-2019 Episodic Other non-traumatic joint disorders (1 source) Pain in right knee; Translations: [Pain of right knee joint] Episodic Other nutritional; endocrine; and metabolic disorders [...] Chronic Other nutritional; endocrine; and metabolic disorders (11 sources) Obesity caused by energy imbalance 12-10-2023 [...] (7 sources) Pain; Translations: [Pain] Episo dic Residual codes; unclassified (1 source) Patient encounter status; Translations: [Other specified health status] Onset: 08-19-20 Episodic Spondylosis; intervertebral disc disorders; other back problems (20 sources) Low back pain; Translations: [Low back pain, unspecified] Onset: 12-08-19 Episodic Thyroid disorders (20 sources) Congenital hypothyroidism; Translations: [Hypothyroidism] Onset: 03-13-20 22 11-18-2020 Chronic Unclassified (20 sources) Patient encounter status Resolved : 06-12-20 19 08-25-2019 Unclassified (2 sources) Clinical finding 08-19-2024 Past or Other Problems Problem Classification Problem [...] joint; Translations: [Other specified postprocedural states] Onset: 08-29-2023 08-29-2023 Episodic Unclassified (20 sources) Entire nasal sinus (body structure) Resolved: 08-13-2012 05-19-2019 Comment on above: sinus problems, with nasal congestion Unclassified (20 sources) Entire temporomandibular joint (body structure) 04-06-2015 Results Test Name Value Interpretation Reference Range Facil it Pathology study report docum entOrdered By: Javier Nixon on 09-05-2024 Pathology study [facility] Other Phone: Carl 09-02-2024 L Specimen: [id number] Received: 09/03/24 Status: FIDEL Fortune Num: [id number] Spec Type: Surgical Subm Dr: Julio Johnson DPM, MS Tissues: A Bone Fragments - Other than Path Fracture (RIGHT FOOT BONE) Procedures: PATRICIA, Gross/Micro L3, Decalcification Age/ Patient Sex Location Account Attending Physician Levi Sofia 64/F LABELL [id number] Julio Johnson DPM, MS SPEC NUM: [id number] RECD: 09/03/24 STATUS: FIDEL ELEONORA NUM: [id number] [place]: 09/02/[address] [facility] [address]: Julio Johnson,DPM, MS ENTERED: 09/03/24 [facility] DR: Alex,Lab SPEC TYPE: Surgical DEPT: [facility] ENTERED BY: [id number] RECV BY: [id number] ORDERED: HE, Gross/Micro L3, Decalcification ORDERED: HE, Gross/Micro L3, Decalcification Pathological Diagnosis Right foot, bone, excision: - Degenerative osteocartilaginous tissue and benign soft tissue. Clinical Information Right Charcot foot reconstruction with midfoot osteotomy and medial column fusion, subtalar joint fusion, ostectomy of cuboid, tendo Achilles lengthening with application of short leg splint Gross Description Part A is received in formalin labeled with the patients name, date of , and right foot bone are drake-lazcano, granular bone fragments, 4 x 3.3 x 1.5 cm, resected with a small amount of lazcano-pink fibrous tissue, up to 0.5 cm in thickness. The largest bone fragment is sectioned to reveal lazcano firm and uniform medullary bone. Operations Research Engineer sections are submitted in a single cassette after decalcification. (1, , [id number] A) Microscopic Description Microscopic examination is performed. Specimen: [id number] Received: 09/03/24 Status: FIDEL Eleonora Num: [id number] Spec Type: Surgical Subm Dr: Julio Johnson DPM, MS Tissues: A Bone Fragments - Other than Path Fracture (RIGHT FOOT BONE) Procedures: PATRICIA Gross/Micro L3, Decalcification Patient: Levi Sofia Luís [id number] (Continued) Specimen: [id number] Received: 09/03/24 (Continued) Signed (signatur e on file) Javier Nixon MD 09/05/24 1145 Specimen: [id number] Received: 09/03/24 Status: FIDEL Fortune Num: [id number] Spec Type: Surgical Subm Dr: Julio Johnson DPM, MS Tissues: A Bone Fragments - Other than Path Fracture (RIGHT FOOT BONE) Procedures: PATRICIA Gross/Micro L3, Decalcification Patient: Levi Sofia [id number] (Continued) Specimen: [id number] Received: 09/03/24 (Continued) CPT Codes 78479, 41386 Specimen: [id number] Received: 09/03/24 Status: FIDEL Fortune Num: [id number] Spec Type: Surgical Subm Dr: Julio Johnson,VILMA, MS Tissues: A Bone Fragments - Other than Path Fracture (RIGHT FOOT BONE) Procedures: PATRICIA, Gross/Micro L3, Decalcification Patient: Levi Sofia [id number] (Continued) Signed (signatur e on file) Javier Nixon MD 09/05/24 1145 [facility] Provider Letteron 08-21-2024 Provider Letter Provider Letter [address] [place] [address] [id number] August 21, 2024 LEVI SOFIA [address] [place] [address] : [address] Johnson: I appreciated the opportunity to evaluate this pleasant 64-year-old patient for whom I have provided care for many years, for upcoming podiatry intervention on her right foot for Charcot disease with planned reconstruction and medial column stabilization and joint fusion. The patient is in generally fair health. She does have a chronic history of asthma, allergies, hypertension and hyperlipidemia and was recently diagnosed with diabetes that is diet controlled. She is making considerable strides at diet management with good response. I reviewed her laboratories from [facility] completed August 13. There is no anemia platelets are adequate. Electrolytes are unremarkable. She has mild chronic renal insufficiency which is known. She did not have any recent chest x-ray but I did review EKG from March 2024 that showed sinus rhythm. She has no history of complications from anesthesia and on her clinical exam I feel she is to be considered an acceptable risk for the planned procedures. I look forward to hearing from you regarding successful outcome. Sincerely: Mara Beverly MD,FAAFP [facility] Ambulatory Visit Summaryon 1 Ambulatory Visit Summary Ambulatory Visit Summary LEVI SOFIA :1960 Visit Date:08/19/2024 Ambulatory Visit Instructions Your Diagnosis Annual visit for general adult medical examination without abnormal findings Controlled diabetes mellitus with diabetic polyneuropathy Type 2 diabetes mellitus with hyperlipidemia Diabetes mellitus with renal manifestation Asthma, moderate persistent Allergic rhinitis due to pollen Hypothyroidism, congenital Benign hypertension Chronic renal impairment, stage 3a Depression, major, recurrent, in partial remission Renal disease, hypertensive benign Morbid obesity Charcot joint of right foot Your Care Team Attending Physician - SIRIA [...] mg Tab) fluconazole (fluconazole 150 mg Tab) fluticasone (fluticasone propionate) fluticasone-vilante rol (Breo Ellipta 100 mcg-25 mcg [...] steroid injection. Discharge Vitals Temperature (Temporal Artery) 36.7 ???C Heart Rate (Peripheral) 81 Respiratory Rate 16 Blood Pressure 112/78 Height 172.72 cm Height 68 in Weight 120.7 kg Weight 265.54 lb BMI 40.46 What to do next Scheduled Follow-Up Appointments 2024 11:00 AM EDT Where: [facility] [address] [place] [address]- You Need to Schedule the Following Appointments Follow Up with Mara BEVERLY MD, FAM When: Within 6 months Comments: staff call [facility] need her recent labs and EKG from 08/12/24 Where: [address] [place] [address]- Medications What How Much When Instructions Unchanged albuterol (Albuterol (Eqv-ProAir HFA) 90 mcg/ inh inhalation aerosol) 2 Puffs Inhalation Every 6 (more content not included)... [facility] Ambulatory Visit Summary Ambulatory Visit Summary LEVI SOFIA :1960 Visit Date:08/19/2024 Ambulatory Visit Instructions Your Diagnosis Annual visit for general adult medical examination without abnormal findings Controlled diabetes mellitus with diabetic polyneuropathy Type 2 diabetes mellitus with hyperlipidemia Diabetes mellitus with renal manifestation Asthma, moderate persistent Allergic rhinitis due to pollen Hypothyroidism, congenital Benign hypertension Chronic renal impairment, stage 3a Depression, major, recurrent, in partial remission Renal disease, hypertensive benign Charcot joint of right foot Impaired mobility and ADLs Morbid obesity BMI 40.0-44.9, adult Other specified health status Your Care Team Attending Physician - Mara BEVERLY MD Primary Care Physician - Mara BEVERLY MD This Is Your Medications List Misc Prescription [...] mg Tab) fluconazole (fluconazole 150 mg Tab) fluticasone (fluticasone propionate) fluticasone-vilante rol (Breo Ellipta 100 mcg-25 mcg [...] steroid injection. Discharge Vitals Temperature (Temporal Artery) 36.7 ???C Heart Rate (Peripheral) 81 Respiratory Rate 16 Blood Pressure 112/78 Height 172.72 cm Height 68 in Weight 120.7 kg Weight 265.54 lb BMI 40.46 What to do next Scheduled Follow-Up Appointments 2024 11:00 AM EDT Where: [address] [address]- You Need to Schedule the Following Appointments Follow Up with SIRIA ARMENTA, EVI Nicole When: Within 6 months Comments: staff call [facility] need her recent labs and EKG from 08/12/24 Where: [address] [place] [address]- Medications What How Much When Instructions Unchanged albuterol (Al (more content not included)... [facility] Family Medicine Office/Clini c Noteon 08-19-2024 Family Medicine Office/Clinic Note Family Medicine Office/Clinic Note Chief Complaint welcome to medicare , no rfs History of Present Illness The patient is a 64-year-old female presenting for a Medicare exam and preoperative clearance for planned surgical intervention on her right foot due to Charcot's joint. The patient had a similar surgical procedure performed on her left foot, which was successful, and is now seeking the same procedure for the right foot. The condition has been progressive, with significant management and care over previous years and was initially identified alongside arthritic changes. The patient has no history of complications with anesthesia. Preoperative workup including an EKG has been conducted; however, records need to be accessed for clearance documentation. She also has a concurrent history of Type 2 diabetes mellitus with renal manifestation and hyperlipidemia, which has been well-managed through lifestyle changes. Recent health improvements are evidenced by a weight reduction of 10 pounds. Alongside, there is a noted history of morbid obesity and challenges with weight control, which impact her mobility. Additionally, she exhibits essential hypertension, congenital hypothyroidism, and moderate persistent asthma, all of which are under pharmacological management. The patient has also been managing major depressive disorder, currently in partial remission, with ongoing mental health support. Other comorbidities, including chronic renal impairment at stage 3a and allergic rhinitis, are noted without current acute exacerbations. The patient demonstrates compliance with health maintenance measures, including diabetic education and eye examinations, completed recently. Review of Systems PHQ Score Initial Depression Screen Score: 2 SCORE Initial Depression Screen Score: 4 SCORE - General: Denies recent fever or malaise. - Respiratory: Reports no current respiratory distress. - Cardiovascular: Denies new palpitations. - Musculoskeletal: Reports ongoing mobility issues due to lower extremity conditions. - Endocrine: Reports stable thyroid function management. Physical Exam Vitals & Measurements T: 36.7 ???C(Temporal Artery) HR: 81(Peripheral) RR: 16 BP: 112/78 SpO2: 96% HT: 68 in HT: 172.72 cm WT: 120.7 kg WT: 265.54 lb BMI: 40.46 Patient is adequately groomed reasonably hydrated. No acute distress. HEENT normocephalic atraumatic. Neck is thick but supple no obvious thyromegaly fair chitina dentition with repairs oropharynx pink and moist nares boggy turbinates no septal deviation conjunctiva clear pupils are symmetric. No JVD or bruits. Lungs are greatly diminished but no wheeze no rhonchi. Cardiac regular rate and rhythm distant S1-S2 no murmur gallop or rub. Abdomen obese. Lower extremities show mild chronic pitting edema at the ankles. Pulses are +1. Her right foot is tender in the arch. Did not see any open wounds at this time. Neuropsychiatric very pleasant cooperative. She is walking with a rollator walker but very difficult to do so as she has limited range of motion of the right shoulder can abduct about 55 degrees and then has pain. No obvious crepitance in the shoulder sports team manager strength is intact. Very stooped posture. Assessment/Plan 1. Annual visit for general adult medical examination without abnormal findings (Z00.00: Encounter for general adult medical examination without abnormal findings) Patient is up-to-date with all general health maintenance. She will obtain flu vaccine and Prevnar 20 at the pharmacy. Ordered: 1125F Pain severity quantified; pain present A1c POC 26070 Advance care planning discussion documented in the medical record 1158F Annual alcohol misuse screening, 15 min G0442 Annual Depression Screening 15 min G0444 Body Mass Index (BMI) documented 3008F Central Dual-energy X-Ray Absorptiometry (DXA) results documented 3095F Colorectal CA screening results documented and reviewed 3017F Current tobacco non-user 1036F Depression Screening Negative 3352F Diabetic Foot Exam 2028F Dilated retinal eye exam WITHOUT retinopathy documented and reviewed 2023F Functional status assessed 1170F HBA1C <7.0 Most Recent Level 3044F Influenza immunization status assessed 1030F Medicare Welcome Visit G0402 Medication list documented in medical record 1159F Most recent diastolic blood pressure <80 mm Hg 3078F Most recent LDL-C < 100 mg/Dl 3048F Negative microalbuminuria test result documented and reviewed 3061F Patient screen for fall risk: no falls in last year or 1 fall with no injury in last year 1101F Pneumococcus immunization status assessed 1022F Review of all meds by a prescribing practitioner or clinical pharmacist documented in EHR 1160F Screening mammography documented and reviewed 3014F Systolic BP <130 mm Hg (Most Recent) 3074F 2. Controlled diabetes mellitus with diabetic polyneuropathy (E11.42: Type 2 diabetes mellitus with diabetic polyneuropathy) A1c today has improved now at 5.9. Had previously bee (more content not included)... [facility] Comment on above: Result Comment: Elec tronically Signed By: SIRIA ARMENTA, Mara\.br\Date and Time Signed: 08/19/24 16:40 EDT Family Medicine Office/Clinic Note Family Medicine Office/Clinic Note Chief Complaint welcome to medicare , no rfs Review of Systems PHQ Score Initial Depression Screen Score: 2 SCORE Initial Depression Screen Score: 4 SCORE Physical Exam Vitals & Measurements T: 36.7 ???C(Temporal Artery) HR: 81(Peripheral) RR: 16 BP: 112/78 SpO2: 96% HT: 68 in HT: 172.72 cm WT: 120.7 kg WT: 265.54 lb BMI: 40.46 Assessment/Plan I was in the office and available for consultation and to provide direct supervision at the time of this visit. I have provided supervision of the care team and have reviewed this chart and office note and agree with the plan of care. 1. Annual visit for general adult medical examination without abnormal findings (Z00.00: Encounter for general adult medical examination without abnormal findings) The patient was given a customized and personalized print out of all the current AHRQ USPSTF???s recommendations for preventative services and all current CDC recommended immunizations, relevant risk recommendations and the following patient brochures were given. Reviewed Medicare Prevention Services checklist. CDC-Falls Prevention and home safety screening reviewed. Patient had 1 fall in last 12 months no injury, voices worry about falling. Exhibits some problems with sitting, standing or ambulation. Patient aware with keeping walk way area free of clutter to prevent tripping and/or falling. [place] Advance Directives reviewed. Documents to be completed, encouraged to bring in for scanning into chart when complete. Patient denies any problems with ADL???s and Instrumental ADL???s. Cognitive screening completed with memory and clock face drawing. No deficits noted. Immunization record reviewed, discussed Shingrix vaccines have been administered. COVID vaccines have been administered, with 2 Boosters received. Allergies and medications reviewed and up to date. No concerns with taking medication as prescribed. Reviewed OTC medications, medication list up to date. Blood tests were reviewed: Discussed what tests need to be updated. Labs were up to date. No concerns with bowel/ bladder. Colonoscopy last completed 08/18/21, repeat in 5 years. Reviewed pain symptoms : knee and ankle pain, rates pain as a 10 out of 10. Reviewed all outside providers that patient follows. Last visit summary notes available in chart and/or have been requested. Patient declines any signs or symptoms of depression at this time. 15 minutes spent with screening and documentation. PHQ screening score 9. Patient never drinks alcohol, denies concerns. 15 minutes spent with screening and documentation. Audit score 0. Follow up scheduled with PCP, as needed. AWV has been scheduled, 08/20/25 @11am. 2. Controlled diabetes mellitus with diabetic polyneuropathy (E11.42: Type 2 diabetes mellitus with diabetic polyneuropathy) DM stoplight handout reviewed with signs and symptoms to monitor for and report to PCP. Discussed ADA dietary recommendations with handouts provided. Encouraged to increase daily physical activity, adequate water intake, monitor carbs/chol and fats. Follows up yearly with DM foot check, reminded patient to perform at home foot checks to prevent future complications. Patient has completed DM education. Complete DM eye exams completed yearly with visit summary notes available in chart. 3. Type 2 diabetes mellitus with hyperlipidemia (E11.69: Type 2 diabetes mellitus with other specified complication) See #2. Patient encouraged to eat a diet that is low in saturated fats. Stressed importance of loosing weight and/or maintain healthy BMI. as being overweight does produce more lipids. Monitor alcohol intake and avoid smoking. Risks may also increase with a family history of hyperlipidemia. Patient voices understanding with healthy dietary choices to reduce risk factors associated with CVA. Taking statin medication daily. Will continue to follow up with labs as directed. 4. Diabetes mellitus with renal manifestation (E11.29: Type 2 diabetes mellitus with other diabetic kidney complication) See #2. Patient voices understanding with avoiding NSAID's. Healthy Kidney Nutritional education material reviewed and provided with patient. Goals to keep blood sugars and blood pressure under better control to reduce cardiovascular risk factors. Medications and blood work monitored with visits. Patient continues taking statin medications daily. 5. Asthma, moderate persistent (J45.40: Moderate persistent asthma, uncomplicated) Patient takes inhalers as directed, uses PRN nebulizer treatments when needed. Follows Dr. Beverly. Patient remains on R/A, o2Sat 96% today , will follow up as needed with Dr. Beverly. 6. Allergic rhinitis due to pollen (J30.1: Allergic rhinitis due to pollen) Patient takes singular, Flonase nasal spray and Carla as directed. 7. Hypothyroidism, congenital (E03.1: Congenital hypothyroidism without goiter) Patient continues to take medication as prescribed. She denies any sensitivity (more content not included)... [facility] Comment on above: Result Comment: Elec tronically Signed By: SIRIA ARMENTA, Mara\.br\Date and Time Signed: 08/19/24 16:34 EDT\.br\Electronically Co-Signed By: Amanda JEFFERSON, Andra Luis\.br\Date and Time Co-Signed: 08/19/24 16:15 EDT Nonvisit Note - PTon 024 Nonvisit Note - PT Nonvisit Note - PT woke up and is not feeling well [facility] Nonvisit Note - PTon 024 Nonvisit Note - PT Nonvisit Note - PT Chart reviewed with eval prepped for scheduled eval. KK [facility] BD Bone Density DEXAon 05-18 BD Bone [...] by: HENRIETTA Technologist: NICK De La Fuente [facility] [place] Mamm Screen w/CAD if perf and [...] VERY IMPORTANT TO YOUR HEALTH. THE CURRENT [place] [employer] N[employer] COMPREHENSIVE CANCER [...] Audie Cartagena MD Transcribed by: HENRIETTA Technologist: [facility] Assessment: BI-RADS Category 1-Negative Recommendation: Normal interval follow-up [facility] U Microalbon 05-13-2024 Albumin DL <= 20 mg/L (U) [Mass/Vol] 1.7 mg/dL Normal 0.0-1.9 [facility] Comment on above: Performed By: #### 1 [id number] #### [facility] [address] [place] [address] U Protein/Creat Ratioon 04-22 Protein/Creatinine (U) [Ratio] 9.40 mg/gm Cr Normal .00-200.00 [facility] Comment on above: Performed By: #### 1 [id number] #### [facility] [address] [place] [address] U Creatinine 139.0 mg/dL Invalid Interpretation Code [facility] Comment on above: Performed By: #### 1 [id number] #### [facility] [address] [place] [address] Ur Total Protein 13.1 mg/dL Invalid Interpretation Code [facility] Comment on above: Performed By: #### 1 [id number] #### [facility] [address] [place] [address] Ambulatory Visit Summaryon 0 05-12-2024 Ambulatory Visit [...] Bone Density Sunday 2:15 PM EDT With: Farzad FRANCE MD Where: [facility] Invalid Interpretation Code [address] [place] [address]- \.br\ Sunday 3:40 PM EDT \.br\ With: Mara BEVERLY MD\.br\ Where: [facility] Family Medicine Office/Clini c Noteon 05-12-2024 [...] or Farxiga with her renal insufficiency Ordered: [facility] Internal Ambulatory Referral 2. Type 2 diabetes mellitus with hyperlipidemia (E11.69: Type 2 diabetes mellitus with other specified complication) Continue current statin and must exercise great caution with dietary compliance. Dietary constraints reviewed to help reduce triglycerides Ordered: [facility] Internal Ambulatory Referral 3. Diabetes mellitus with renal manifestation (E11.29: Type 2 diabetes mellitus with other diabetic kidney complication) See #4 patient will set up diabetic eye exam. Ordered: [facility] Internal Ambulatory Referral 4. Chronic renal impairment, [...] 7. C (more content not included)... [facility] Comment on above: Result Comment: Elec tronically Signed By: SIRIA ARMENTA, Mara\.br\Date and Time Signed: 05/12/24 20:23 EDT [id number] 04-15-2024 HbA1c (Bld) [Mass fraction] 6.6 % High <=5.9 [facility] Comment on above: Order Comment: Just spoke with laboratory mechanic helper. Please add this test to blood drawn earlier today, thank you Performed By: #### 7 [id number] #### [facility] [address] [place] [address] Advance Beneficiary Notifica tionson 04-14-2024 Advance Beneficiary Notifications [id number] [facility] CBC w/ Auto Diffon 4 Basophils/100 WBC (Bld) 1.3 % Normal 0.0-2.0 [facility] Comment on above: Performed By: #### 2 [id number] #### [facility] [address] [place] [address] Basophils/Leukocyte s Auto (Bld) [Pure # fraction] 0.1 E9/L Normal 0.0-0.2 [facility] Comment on above: Performed By: #### 2 [id number] #### [facility] [address] [place] [address] Eosinophils (Bld) [#/Vol] 0.2 E9/L Normal 0.0-0.5 [facility] Comment on above: Performed By: #### 2 [id number] #### [facility] [address] [place] [address] Eosinophils/100 WBC (Bld) 3.8 % Normal 0.0-8.0 [facility] Comment on above: Performed By: #### 2 [id number] #### [facility] [address] [place] [address] Erythrocyte distribution width (RBC) [Ratio] 14.8 % High 10.9-14.2 [facility] Comment on above: Performed By: #### 2 [id number] #### [facility] [address] [place] [address] Hematocrit (Bld) [Volume fraction] 39.9 % Normal 34.0-46.0 [facility] Comment on above: Performed By: #### 2 [id number] #### [facility] [address] [place] [address] Hemoglobin (Bld) [Mass/Vol] 13.7 g/dL Normal 12.0-16.0 [facility] Comment on above: Performed By: #### 2 [id number] #### [facility] [address] [place] [address] Lymphocytes (Bld) [#/Vol] 2.1 E9/L Normal 1.0-4.0 [facility] Comment on above: Performed By: #### 2 [id number] #### [facility] [address] [place] [address] Lymphocytes/100 WBC (Bld) 35.4 % Normal 14.0-50.0 [facility] Comment on above: Performed By: #### 2 [id number] #### [facility] [address] [place] [address] MCH (RBC) [Entitic mass] 31.5 pg Normal 27.0-34.0 [facility] Comment on above: Performed By: #### 2 [id number] #### [facility] [address] [place] [address] MCHC (RBC) [Mass/Vol] 34.2 g/dL Normal 31.4-36.0 [facility] Comment on above: Performed By: #### 2 [id number] #### [facility] [address] [place] [address] MCV (RBC) [Entitic vol] 92.0 fL Normal 80.0-100.0 [facility] Comment on above: Performed By: #### 2 807260 #### [facility] [address] [place] [address] Monocytes (Bld) [#/Vol] 0.4 E9/L Normal 0.2-1.0 [facility] Comment on above: Performed By: #### 2 [id number] #### [facility] [address] [place] [address] Neutrophils (Bld) [#/Vol] 3.0 E9/L Normal 2.0-7.5 [facility] Comment on above: Performed By: #### 2 330441 #### [facility] [address] [place] [address] Neutrophils/100 WBC (Bld) 52.2 % Normal 36.0-75.0 [facility] Comment on above: Performed By: #### 2 370853 #### [facility] [address] [place] [address] Platelet 251.0 E9/L Normal 150.0-500.0 [facility] Comment on above: Performed By: #### 2 537193 #### [facility] [address] [place] [address] Platelet mean volume (Bld) [Entitic vol] 8.7 fL Normal 6.4-10.8 [facility] Comment on above: Performed By: #### 2 [id number] #### [facility] [address] [place] [address] RBC (Bld) [#/Vol] 4.3 E12/L Normal 4.3-5.9 [facility] Comment on above: Performed By: #### 2 405418 #### [facility] [address] [place] [address] WBC corrected for nucl RBC Auto (Bld) [#/Vol] 5.8 E9/L Normal 4.0-11.0 [facility] Comment on above: Performed By: #### 2 135086 #### [facility] [address] [place] [address] CHEMISTRYOrdered By: SYSTEM SYSTEM on 04-14-2024 Albumin [...] 04-14-2024 Albumin [Mass/Vol] 4.2 g/dL Normal 3.3-5.0 [facility] Comment on above: Performed By: #### 2 334698 #### [facility] [address] [place] [address] Albumin/Globulin (S) [Mass conc ratio] 1.4 Normal 1.1-2.2 [facility] Comment on above: Performed By: #### 2 191832 #### [facility] [address] [place] [address] ALP [Catalytic activity/Vol] 75 Int._Unit/L Normal 21-98 [facility] Comment on above: Performed By: #### 2 [id number] #### [facility] [address] [place] [address] ALT No additional P-5'-P [Catalytic activity/Vol] 23 Int._Unit/L Normal 6-46 [facility] Comment on above: Performed By: #### 2 276989 #### [facility] [address] [place] [address] Anion gap [Moles/Vol] 13 mmol/L Normal 6-16 [facility] Comment on above: Performed By: #### 2 466802 #### [facility] [address] [place] [address] AST [Catalytic activity/Vol] 19 Int._Unit/L Normal 5-43 [facility] Comment on above: Performed By: #### 2 773974 #### [facility] [address] [place] [address] Bilirubin [Mass/Vol] 0.5 mg/dL Normal 0.0-1.1 [facility] Comment on above: Performed By: #### 2 689239 #### [facility] [address] [place] [address] Calcium [Mass/Vol] 10.0 mg/dL Normal 8.9-11.1 [facility] Comment on above: Performed By: #### 2 791183 #### [facility] [address] [place] [address] Chloride [Moles/Vol] 105 mmol/L Normal 101-111 [facility] Comment on above: Performed By: #### 2 937987 #### [facility] [address] [place] [address] CO2 [Moles/Vol] 25 mmol/L Normal 21-31 [facility] Comment on above: Performed By: #### 2 044165 #### [facility] [address] [place] [address] Creatinine [Mass/Vol] 1.2 mg/dL Normal 0.5-1.3 [facility] Comment on above: Performed By: #### 2 257467 #### [facility] [address] [place] [address] Globulin (S) [Mass/Vol] 3.1 g/dL Normal 1.4-4.0 [facility] Comment on above: Performed By: #### 2 240547 #### [facility] [address] [place] [address] Glucose [Mass/Vol] 140 mg/dL Normal 55-199 [facility] Comment on above: Performed By: #### 2 127310 #### [facility] [address] [place] [address] Potassium [Moles/Vol] 4.7 mmol/L Normal 3.5-5.3 [facility] Comment on above: Performed By: #### 2 628117 #### [facility] [address] [place] [address] Protein [Mass/Vol] 7.3 g/dL Normal 6.0-7.8 [facility] Comment on above: Performed By: #### 2 337726 #### [facility] [address] [place] [address] Sodium [Moles/Vol] 138 mmol/L Normal 135-145 [facility] Comment on above: Performed By: #### 2 962610 #### [facility] [address] [place] [address] Urea nitrogen [Mass/Vol] 28 mg/dL High 5-21 [facility] Comment on above: Performed By: #### 2 397783 #### [facility] [address] [place] [address] Urea nitrogen/Creatinine [Mass ratio] 23 No Units High 10- [facility] Comment on above: Performed By: #### 2 [id number] #### [facility] [address] [place] [address] Consent for Treatmenton 03-23 Consent for Treatment [id number]#1.00TIFF [facility] HEMATOLOGYOrdered By: SYSTEM SYSTEM on 04-14-2024 Basophils/100 [...] 04-14-2024 Cholesterol [Mass/Vol] 164 mg/dL Normal 120-200 [facility] Comment on above: Performed By: #### 2 [id number] #### [facility] [address] [place] [address] Cholesterol in HDL [Mass/Vol] 42 mg/dL Invalid Interpretation Code [facility] Comment on above: Result Comment: '>= 60 LOW RISK' '<= 40 HIGH RISK' Performed By: #### 2 359506 #### [facility] [address] [place] [address] Cholesterol in LDL [Mass/Vol] 83 mg/dL Normal <=129 [facility] Comment on above: Performed By: #### 2 814817 #### [facility] [address] [place] [address] Cholesterol in VLDL [Mass/Vol] 49 mg/dL High 7-40 [facility] Comment on above: Performed By: #### 2 299100 #### [facility] [address] [place] [address] Triglyceride [Mass/Vol] 246 mg/dL High <=149 [facility] Comment on above: Performed By: #### 2 541156 #### [facility] [address] [place] [address] TSH With T4fr Reflexon 04-14 TSH Qn 2.34 m[IU]/L Normal 0.34-5.60 [facility] Comment on above: Performed By: #### 1 [id number] #### [facility] [address] [place] [address] eGFRon 04-14-2024 eGFR 50 mL/min/1.73 m2 Low >=59 [facility] Comment on above: Order Comment: Order added by Discern Expert. Performed By: #### 1 [id number] #### [facility] [address] [place] [address] Family Medicine Office/Clini c Noteon 04-08-2024 Family Medicine Office/Clinic Note Chief Complaint possible bed bug bites HPI Staff Pt. states she stayed at a hotel in [place], thinks she may have bed bug bites. Has noted bites on legs, arms and stomach, some are itchy. Has tried hydrocortisone cream History of Present Illness Reviewed and agree with above documented HPI by medical charge entry specialist. Portions of this record may have been created with voice recognition artificial intelligence software, specifically [employer], [employer] and or [employer]. Substitutions may have occurred due to the inherent limitations of voice recognition and artificial intelligence software. Patient is a 63-year-old female who presents to the [facility] care, for insect bites to her arms [...] alert, active Assessment/Plan 64-year-old female presented to [facility], for bedbug bites, exposure this past weekend, stepped in a hole to her room on Sunday night, started with the lesions on Sunday, about 2 days ago, no facial swelling cellulitis, patient appears ill or septic, respiratory distress, difficulty swallowing. Patient was given a prescription for permethrin lotion, take [id number] Benadryl as needed for itchiness, follow-up with [...] [place], Topical, Once, 60 gram, Refill(s) 0, [facility], 177, cm, 04/08/24 13:20:00 EDT, Height/Length Dosing, 125.7, kg, 04/08/24 13:18:00 EDT, Weight Dosing Follow-up With When Contact Information SIRIA ARMENTA, Mara, [facility] [address] [id number]- Additional Instructions: Patient Education BMI for Adults Bedbugs, Pcrg-rc-Daps Problem List/Past Medical History Ongoing Allergic rhinitis [...] in adul (more content not included)... [facility] Comment on above: Result Comment: Elec tronically Signed By: EMELYN POLK PA-C\.br\Date and Time Signed: 04/08/24 15:40 EDT Patient [...] face, mouth, tongue, or throat. ? Feeling casing cleaner the face. ? Itchy, red, swollen areas [...] provider. Document Revised: 12/26/2022 Document Reviewed: 12/21/2022 Elsevier Patient Education ? 2022 [employer] Nutrition BMI for Adults What is BMI? Body mass index (BMI) is a number that is calculated from a person's weight and height. BMI can help estimate how much of a person' (more content not included)... [facility] Discharge Instructionson Discharge Instructions [id number]#[id number] [facility] ED Clinical Summaryon 2023 ED Clinical Summary [place] [id number] ED Clinical Summary Person Information Name: LEVI SOFIA Anneliese/[facility] Age: 64 Years : 1960 Sex: Female Language: Sudanese PCP: Mara BEVERLY MD Marital Status: Visit [...] 03/25/2024 00:56:05 03/25/2024 00:56:05 03/25/2024 00:56:05 ADDRESS: [address] [id number] PHYS DOC NOTES: MEDICAL INFORMATION: Prescriptions Given: New Medications [facility], [address], [place] [id number], [phone] brompheniramine/dex tromethorphan/PSE (Bromfed DM oral syrup) 5 [...] Adult Follow up: With: Address: When: [place] [address] Business (1) In 3 days DIAGNOSIS: Asthma exacerbation [facility] ED Note-Physicianon 03-25-20 ED Note-Physician Basic Information [...] and Complexity of Problems Differential Diagnosis: [] [facility] Data External documents reviewed: N/A My [...] cough and congestion, 200 mL, Refill(s) 0, [facility], 177, cm, 03/24/24 22:52:00 EDT, Height/Length Dosing, 128, kg, 03/24/24 22:52:00 EDT, Weight Dosing B-Type Natriuretic Peptide Basic Metabolic Panel CBC w/ Auto Diff ECG 12 Lead Adult ED Cardiac Monitoring eGFR Influenza A&B Ag Oxygen Saturation Oxygen Therapy PT & PTT Rapid COVID Antigen ([facility]) Saline Lock Insert Troponin 0 Hr. Troponin [...] Mara BEVERLY In 3 days [address] [place] [address]- Business (1) Additional Instructions: Patient Education Asthma, Adult [...] exam Histor (more content not included)... [facility] Comment on above: Result Comment: Elec tronically Signed By: Yuniel Ocasio DO\.br\Date and Time [...] (shortness of breath). ? Excessive nighttime or hand pattern marker coughing. ? Chest tightness. ? Tiredness (fatigue) [...] Follow these instructions at home: ? Take cfsx-qnp-ocmqfqj and prescription medicines only as told by [...] ? You (more content not included)... [facility] ED Patient Summaryon 024 ED Patient Summary [address] [address] Patient Discharge Instructions Person Information Name: LEVI SOFIA Age: 64 Years Arrival Date: 03/24/2024 22:39:26 Discharge Diagnosis: Asthma exacerbation Primary Care Physician: Mara BEVERLY MD Provider Information Primary Provider: Yuniel Ocasio DO Advanced Buckle Attaching Machine Operator:Camila The exam and treatment you received in the Emergency Department were for an urgent problem and are not intended as complete care. It is important that you follow up with a doctor, nurse practitioner, or physician?s mortgage assistant for ongoing care. If your symptoms become worse or you do not improve as expected and you are unable to reach your usual health care provider, you should return to the Emergency Department. We are available 24 hours a day. BISMARKLEVI has been given the following list of patient education materials, prescriptions and follow-up instructions: Follow-up Instructions: With: Address: When: [place] [address] Business (1) In 3 days In the event that this physician does not participate in your insurance network, please consult with your insurance company to find a nearby participating provider. Patient Education Materials: Asthma, Adult A MESSAGE TO ALL PATIENTS REGARDING OPIOIDS PRESCRIPTION OPIOIDS: WHAT YOU NEED TO KNOW Prescription opioids can be used to help relieve cyhrspin-xr-shfkis pain and are often prescribed following a [...] be struggling with addiction, tell your health career development director and ask for guidance or call [facility]S [employer] Helpline at [phone]. e Source: [place] Department of Health and Human Services (more content not included)... [facility] Troponin 1 Hr.Ordered By: Zeetl on 03-25-2024 Troponin HS 2.90 pg/mL Low 10.10-27.10 [facility] Comment on above: Interpretive Data: T he 95% CI (Confidence Interval) PPV (Positive Predictive Value) for myocardial infarction in females is 38 pg/mL, in males 51 pg/mL. The results should be used in conjunction with clinical conditions of myocardial infarction. (Blekko High Sensitivity Troponin I Instructions For Use, Ramamia, May 2018) Order Comment: 1hr d raw @ :02 Result Comment: The 95% CI (Confidence Interval) PPV (Positive Predictive Value) for myocardial infarction in females is 38 pg/mL, in males 51 pg/mL. The results should be used in conjunction with clinical conditions of myocardial infarction. (Blekko High Sensitivity Troponin I Instructions For Use, Ramamia, May 2018) Performed By: #### 1 [id number] #### [facility] [address] [place] [address] XR Chest Single Viewon 03-25 XR Chest [...] mGy = na DAP = na [facility] BMPon 03-24-2024 Anion gap [Moles/Vol] 15 mmol/L Normal 6-16 [facility] Comment on above: Performed By: #### 2 [id number] #### [facility] [address] [place] [address] Calcium [Mass/Vol] 9.4 mg/dL Normal 8.9-11.1 [facility] Comment on above: Performed By: #### 2 [id number] #### [facility] [address] [place] [address] Chloride [Moles/Vol] 99 mmol/L Low 101-111 [facility] Comment on above: Performed By: #### 2 [id number] #### [facility] [address] [place] [address] CO2 [Moles/Vol] 25 mmol/L Normal 21-31 [facility] Comment on above: Performed By: #### 2 [id number] #### [facility] [address] [place] [address] Creatinine [Mass/Vol] 1.3 mg/dL Normal 0.5-1.3 [facility] Comment on above: Performed By: #### 2 [id number] #### [facility] [address] [place] [address] Glucose [Mass/Vol] 146 mg/dL Normal 55-199 [facility] Comment on above: Performed By: #### 2 [id number] #### [facility] [address] [place] [address] Potassium [Moles/Vol] 4.0 mmol/L Normal 3.5-5.3 [facility] Comment on above: Performed By: #### 2 [id number] #### [facility] [address] [place] [address] Sodium [Moles/Vol] 135 mmol/L Normal 135-145 [facility] Comment on above: Performed By: #### 2 [id number] #### [facility] [address] [place] [address] Urea nitrogen [Mass/Vol] 40 mg/dL High 5-21 [facility] Comment on above: Performed By: #### 2 [id number] #### [facility] [address] [place] [address] Urea nitrogen/Creatinine [Mass ratio] 31 No Units High 10-20 [facility] Comment on above: Performed By: #### 2 [id number] #### [facility] [address] [place] [address] BNPon 4 Natriuretic peptide B (Bld) [Mass/Vol] 14 pg/mL Normal 5-80 [facility] Comment on above: Performed By: #### 1 [id number] #### [facility] [address] [place] [address] CBC w/ Auto Diffon 4 Basophils/100 WBC (Bld) 0.7 % Normal 0.0-2.0 [facility] Comment on above: Performed By: #### 2 [id number] #### [facility] [address] [place] [address] Basophils/Leukocyte s Auto (Bld) [Pure # fraction] 0.1 E9/L Normal 0.0-0.2 [facility] Comment on above: Performed By: #### 2 [id number] #### [facility] [address] [place] [address] Eosinophils (Bld) [#/Vol] 0.1 E9/L Normal 0.0-0.5 [facility] Comment on above: Performed By: #### 2 904026 #### [facility] [address] [place] [address] Eosinophils/100 WBC (Bld) 0.4 % Normal 0.0-8.0 [facility] Comment on above: Performed By: #### 2 753936 #### [facility] [address] [place] [address] Erythrocyte distribution width (RBC) [Ratio] 14.7 % High 10.9-14.2 [facility] Comment on above: Performed By: #### 2 [id number] #### [facility] [address] [place] [address] Hematocrit (Bld) [Volume fraction] 39.6 % Normal 34.0-46.0 [facility] Comment on above: Performed By: #### 2 669343 #### [facility] [address] [place] [address] Hemoglobin (Bld) [Mass/Vol] 13.2 g/dL Normal 12.0-16.0 [facility] Comment on above: Performed By: #### 2 [id number] #### [facility] [address] [place] [address] Lymphocytes (Bld) [#/Vol] 2.6 E9/L Normal 1.0-4.0 [facility] Comment on above: Performed By: #### 2 732169 #### [facility] [address] [place] [address] Lymphocytes/100 WBC (Bld) 16.3 % Normal 14.0-50.0 [facility] Comment on above: Performed By: #### 2 614153 #### [facility] [address] [place] [address] MCH (RBC) [Entitic mass] 30.7 pg Normal 27.0-34.0 [facility] Comment on above: Performed By: #### 2 [id number] #### [facility] [address] [place] [address] MCHC (RBC) [Mass/Vol] 33.3 g/dL Normal 31.4-36.0 [facility] Comment on above: Performed By: #### 2 138203 #### [facility] [address] [place] [address] MCV (RBC) [Entitic vol] 92.3 fL Normal 80.0-100.0 [facility] Comment on above: Performed By: #### 2 945188 #### [facility] [address] [place] [address] Monocytes (Bld) [#/Vol] 1.0 E9/L Normal 0.2-1.0 [facility] Comment on above: Performed By: #### 2 [id number] #### [facility] [address] [place] [address] Neutrophils (Bld) [#/Vol] 12.1 E9/L High 2.0-7.5 [facility] Comment on above: Performed By: #### 2 260084 #### [facility] [address] [place] [address] Neutrophils/100 WBC (Bld) 76.0 % High 36.0-75.0 [facility] Comment on above: Performed By: #### 2 133622 #### [facility] [address] [place] [address] Platelet mean volume (Bld) [Entitic vol] 7.5 fL Normal 6.4-10.8 [facility] Comment on above: Performed By: #### 2 695483 #### [facility] [address] [place] [address] Platelets (Bld) [#/Vol] 194.0 E9/L Normal 150.0-500.0 [facility] Comment on above: Performed By: #### 2 936185 #### [facility] [address] [place] [address] RBC (Bld) [#/Vol] 4.3 E12/L Normal 4.3-5.9 [facility] Comment on above: Performed By: #### 2 730575 #### [facility] [address] [place] [address] WBC corrected for nucl RBC Auto (Bld) [#/Vol] 15.9 E9/L High 4.0-11.0 [facility] Comment on above: Performed By: #### 2 868568 #### [facility] [address] [place] [address] CHEMISTRYOrdered By: SYSTEM SYSTEM on 03-24-2024 Anion gap [Moles/Vol] 15 [...] 14 pg/mL Normal 5 - 80 pg/mL [facility] HemeMan COAGULATIONOrdered By: Raeann Avila on 03-24-2024 aPTT Coag (PPP) [Time] 29.2 s Normal 25.1 - 36.5 second(s) [facility] Auto Coag Comment on above: Interpretive Data: Earl ernst 15 days - 4 weeks 1 - [...] the same coagulation reagent and instrumentation as [facility]. Currently there are no coagulation studies available worldwide for children to 14 days, and no normal ranges. Heparin therapeutic range (represented by Anti-Factor Xa activity of 0.2 - 0.4 U/mL) corresponds to PTT of 56.6 - 109.0 sec. INR Coag (PPP) [Relative time] 0.95 {INR} Invalid Interpretation Code [facility] Auto Coag Comment on above: Interpretive Data: I NR results are specifically intended to assess patients stabilized on long-term Anticoagulation therapy suggested INR s Less Intensive Anticoagulation 2.0 3.0 Conventional Range 3.0 4.5 PT Coag (PPP) [Time] 10.6 s Normal 9.4 - 12.5 second(s) [facility] Auto Coag Comment on above: Interpretive Data: [...] the same coagulation reagent and instrumentation as [facility]. Currently there are no coagulation studies available worldwide for children to 14 days, and no normal ranges. Consent for Treatmenton Consent for Treatment [id number] 35#1.00TIFF Normal [facility] HEMATOLOGYOrdered By: SYSTEM SYSTEM on 03-24-2024 [...] Agon Influenzae A Ag Negative Normal Negative [facility] Comment on above: Performed By: #### 1 [id number] #### [facility] [address] [place] [address] Influenzae B Ag Negative Normal Negative [facility] Comment on above: Result Comment: Test sensitivity and specificity vary for age group, specimen type, antigen types, and prevalence of disease. Test results must be evaluated in conjunction with other clinical data available to the physician. Individuals who received nasally administered Influenza A vaccine may have positive test results up to 3 days after vaccination. Performed By: #### 1 [id number] #### [facility] [address] [place] [address] MICRO OTHER TESTSOrdered By: Caroline Avila on 03-24-2024 Influenzae A Ag Negative (03/24/24 11:05 PM) Normal Negative [facility] Man Sero Influenzae B Ag Negative 1 (03/24/24 11:05 PM) Normal Negative [facility] Man Sero Comment on above: Interpretive Data: [...] NEG Ctl Pass (03/24/24 11:05 PM) Normal [facility] Man Sero Rapid COV Int POS Ctl Pass (03/24/24 11:05 PM) Normal [facility] Man Sero SARS-CoV+SARS-CoV-2 (COVID-19) Ag IA.rapid Ql (Resp) Not Detected 7 (03/24/24 11:05 PM) Normal Not Detected [facility] Man Sero Comment on above: Interpretive Data: Edgar cope BD Veritor System for Rapid Detection of SARS-CoV-2 is [...] Coag (PPP) [Time] 29.2 second(s) Normal 25.1-36.5 [facility] Comment on above: Result Comment: Para meter 15 days - 4 weeks 1 - 5 months 6 - 11 months 1 - 5 years 6 - 10 years 11 - 17 years PTT Mean: 35.4 (27.6-45.6) Mean: 33.5 (24.8-40.7) Mean: 32.4 (25.1-40.7) Mean: 31.6 (24.0-39.2) Mean: 31.6 (26.9-38.7) Mean: 31.0 (24.6-38.4) Pediatric Reference ranges were obtained from a study by kay Mcgarry al. prepared from 1437 samples obtained at 7 different centers using the same coagulation reagent and instrumentation as [facility]. Currently there are no coagulation studies available worldwide for children to 14 days, and no normal ranges. Heparin therapeutic range (represented by Anti-Factor Xa activity of 0.2 - 0.4 U/mL) corresponds to PTT of 56.6 - 109.0 sec. Performed By: #### 1 [id number] #### [facility] [address] [place] [address] INR Coag (PPP) [Relative time] 0.95 {INR} Invalid Interpretation Code [facility] Comment on above: Result Comment: INR results are specifically intended to assess patients stabilized on long-term Anticoagulation therapy suggested INR?s ?Less Intensive Anticoagulation? 2.0 ? 3.0 Conventional Range 3.0 ? 4.5 Performed By: #### 1 [id number] #### [facility] [address] [place] [address] PT Coag (PPP) [Time] 10.6 second(s) Normal 9.4-12.5 [facility] Comment on above: Result Comment: 15 d ays - 4 weeks 1 - 5 months 6 -11 months 1- 5 years 6-10 years 11 -17 years Mean: 11.2 (9.5-12.6) Mean: 11.0 (9.7-12.8) Mean: 11.0 (9.8-13.0) Mean: 11.3 (9.9-13.4) Mean: 11.7 (10.0-14.6) Mean: 11.8 (10.0 - 14.1) Pediatric Reference ranges were obtained from a study by Len Chris et al. prepared from 1437 samples obtained at 7 different centers using the same coagulation reagent and instrumentation as [facility]. Currently there are no coagulation studies available worldwide for children to 14 days, and no normal ranges. Performed By: #### 1 [id number] #### [facility] [address] [place] [address] Rapid COVID Antigen ([facility])on 03-24-2024 Rapid COV Int NEG Ctl Pass Normal [facility] Comment on above: Performed By: #### 2 [id number] #### [facility] [address] [place] [address] Rapid COV Int POS Ctl Pass Normal [facility] Comment on above: Performed By: #### 2 [id number] #### [facility] [address] [place] [address] SARS-CoV+SARS-CoV-2 (COVID-19) Ag IA.rapid Ql (Resp) Not detected Normal Not Detected [facility] Comment on above: Result Comment: The MEDSEEKitor? System for Rapid Detection of SARS-CoV-2 is [...] or revoked sooner. Performed By: #### 2 [id number] #### [facility] [address] [place] [address] Troponin 0 Hr.on 03-24-2024 Troponin HS 4.00 pg/mL Low 10.10-27.10 [facility] Comment on above: Result Comment: The 95% CI (Confidence Interval) PPV (Positive Predictive Value) for myocardial infarction in females is 38 pg/mL, in males 51 pg/mL. The results should be used in conjunction with clinical conditions of myocardial infarction. (Access High Sensitivity Troponin I Instructions For Use, Yaima Soddy Daisy, May 2018) Performed By: #### 1 [id number] #### [facility] [address] [place] [address] eGFRon 03-24-2024 eGFR 46 mL/min/1.73 m2 Low >=59 [facility] Comment on above: Order Comment: Order added by Discern Expert. Performed By: #### 1 [id number] #### [facility] [address] [place] [address] Ambulatory Visit Summaryon 0 03-21-2024 Ambulatory Visit [...] PM EDT With: Mara BEVERLY MD Where: [facility] [address] [place] [address]- \.br\ You Need to Schedule the Following Appointments\.br\ Follow Up with SIRIA ARMENTA, EVI Nicole When: Only if needed\.br\ Where:\.br\ \.br\ Medications\.br\ What How Much When Instructions\.br\ New benzonatate (benzonatate 200 mg oral capsule) 1 Capsules By Mouth 3 times a day Duration: 10 Days Pickup at [facility]\.br\ Unchanged albuterol (Albuterol (Eqv-ProAir HFA) 90 [...] if questions or concerns \.br\ Pharmacy Information\.br\ [facility]: [address] [place], [place] [id number] [phone]\.br\ Allergies\.br\ Augmentin (hives)\.br\ Avelox (Hives)\.br\ Parafon Forte [...] Pollen.\.br\ ? \.br\ Air pollution (like household electric relay tester, wood smoke, smog, or chemical odors).\.br\ What are the signs or [facility] Family Medicine Office/Clini c Noteon 03-21-2024 Family [...] quality improved. She plans to travel to [place] on Sunday and expresses concern about feeling [...] 30 cap (more content not included)... [facility] Comment on above: Result Comment: Elec tronically Signed By: SIRIA ARMENTA, Mara\.br\Date and Time Signed: 03/21/24 16:48 EDT Patient [...] ? Pollen. ? Air pollution (like household electric relay tester, wood smoke, smog, or chemical odors). What [...] polyester or cotton. General instructions ? Take hifr-mcz-iglwnsr and prescription medicines only as told by [...] pollute the air. These may include household electric relay tester, wood smoke, smog, or chemical odors. This information is not intended to replace advice given to you by your health care provider. Make sure you discuss any questions you have with your health care provi (more content not included)... Normal [facility] Patient Correspondenceon Patient Correspondence [id number] B#1.00TIFF [facility] Ambulatory Visit Summaryon 0 03-10-2024 Ambulatory Visit Summary LEVI SOFIA :1960 Visit Date:03/10/2024 Ambulatory Visit Instructions Your Diagnosis Moderate persistent asthma with exacerbation Allergic rhinitis due to pollen Benign hypertension Class 2 severe obesity due to excess calories with serious comorbidity in adult BMI 40.0-44.9, adult Your Care Team Attending Physician - Mara BEVERLY MD Primary Care Physician - SIRIA ARMENTA, Mara This Is Your Medications List [facility] Prescription (Nebulizer Machine) Mis Prescription (Nebulizer machine tubing/ kit) albuterol (Albuterol [...] PM EDT With: Mara BEVERLY MD Where: [facility] Javi Normal [address], [address] [place] [address]- \.br\ Medications\.br\ What How Much When Instructions\.br\ [...] ? \.br\ Air pollutants such as household electric relay tester, aerosol sprays, strong odors, and smoke of [...] cause of your asthma attack.\.br\ ? \.b [facility] Family Medicine Office/Clini c Noteon 03-10-2024 Family [...] day(s), # 6 tab(s), Refills(s) 0, Pharmacy: [facility], 177, cm, 03/10/24 18:16:00 EDT, Height/Length Dosing, 128.6, kg, 03/10/24 18:16:00 EDT, Weight Dosing fluconazole, See Instructions, Take one po q 3 day as needed for post op yeast, # 2 caplet(s), Refills(s) 0, Pharmacy: [facility], 177, cm, 03/10/24 18:16:00 EDT, Height/Length Dosing, 128.6, kg, (more content not included)... Normal [facility] Comment on above: Result Comment: Elec tronically [...] grass. ? Air pollutants such as household electric relay tester, aerosol sprays, strong odors, and smoke of [...] these instructions at home: Medicines ? Take nkkh-pua-esgaide and prescription medicines only as told by [...] to co (more content not included)... Normal [facility] Physician Referralon 024 Physician Referral [id number] 60#1.00TIFF Normal [facility] Ambulatory Visit Summaryon 0 12-10-2023 Ambulatory Visit [...] ARMENTA, Mara This Is Your Medications List sumatriptan (SUMAtriptan [...] PM EDT With: Mara BEVERLY MD Where: [facility] Javi Normal [facility] Family Medicine Office/Clini c Noteon 12-10-2023 Family Medicine Office/Clinic Note Chief Complaint 6mo chk up, rf sumitriptan to [place], needs orders to get labs at [facility] and would like to add vitamin levels. pt c/o urinary urgency/frequency, denies burning History of Present Illness The patient is a 63-year-old female who presents for a general health maintenance checkup. She just returned from [place] after spending over a month there with [...] Urnls Dip Stick Auto w/ Microscopy POC 51977 2. Combined hyperlipidemia (E78.2: Mixed hyperlipidemia) Continues on moderate intensity atorvastatin to help prevent cardiovascular disease risk progression. Requesting labs to be done before next follow-up. Ordered: Urnls Dip Stick Auto w/ Microscopy POC 83791 3. Detrusor instability of bladder (N32.81: Overactive [...] voiding and reduce nocturnal fluid intake Ordered: [facility] Internal Ambulatory Referral Urnls Dip Stick Auto w/ Microscopy POC 72328 4. Fasting hyperglycemia (R73.01: Impaired fasting glucose) Continue limiting carbohydrates in the diet to prevent any progression diabetes mellitus Ordered: Urnls Dip Stick Auto w/ Microscopy POC 35251 5. Depression, major, recurrent, in partial remission (F33.41: Major depressive disorder, recurrent, in partial remission) Doing nicely with venlafaxine we will continue the same patient defers any need for counseling family is very supportive and she is doing much better now that she is retired from work Ordered: Urnls Dip Stick Auto w/ Microscopy POC 04305 6. Hypothyroidism, congenital (E03.1: Congenital hypothyroidism witho (more content not included)... [facility] Comment on above: Result Comment: Elec tronically [...] Spices. Seasoni (more content not included)... Normal [facility] Patient Correspondenceon Patient Correspondence [id number] 0F#1.00TIFF Normal [facility] Patient Correspondenceon Patient Correspondence [id number] FB#1.00TIFF Normal [facility] Family Medicine Office/Clini c Noteon 10-17-2023 Family Medicine Office/Clinic Note Chief Complaint possible sinus infection HPI Staff 63 year old female presents with possible sinus infection. Sinus pressure, itchy ears, drainage, symptoms started about 5 days ago. History of Present Illness rm 1 Portions of this record may have been created with voice recognition artificial intelligence software, specifically [employer], [employer] and or [employer]. Substitutions may have occurred due to the [...] BID, # 20 cap(s), Refills(s) 0, Pharmacy: [facility], 178, cm, 10/17/23 14:51:00 EST, Height/Length Dosing, 127, kg, 10/17/23 14:51:00 EST, Weight Dosing Follow-up With When Contact Information SIRIA ARMENTA, Mara, [place] [id number]- Additional Instructions: Patient Education Sinus Infection, Adult, Jxhd-yi-Gdcs BMI for Adults Problem List/Past Medical History [...] extract (more content not included)... Normal [facility] Comment on above: Result Comment: Elec [...] ? Medicines that treat allergies (antihistamines). ? Jowd-qpk-llwoswa pain relievers. ? If caused by bacteria, your doctor may wait to see if you will get better without treatment. You may be given antibiotic medicine if you have: ? A very bad infection. ? A weak body defense system. ? If caused by growths in the nose, surgery may be needed. Follow these instructions at home: Medicines ? 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 ? Do not smoke. Avoid being around [...] follow-up visits (more content not included)... Normal [facility] Consultation Noteon 11- Consultation Note [id number] 3#1.00TIFF Normal [facility] CHEMISTRYOrdered By: SYSTEM SYSTEM on 05-17-2023 Anion gap [Moles/Vol] 10 mmol/L Normal 6 - 16 mEq/L [facility] Remisol Chloride [Moles/Vol] 105 mmol/L Normal 101 - 111 mmol/L [facility] Remisol CO2 [Moles/Vol] 27 mmol/L Normal 21 - 31 mmol/L [facility] [facility] Creatinine [Mass/Vol] 1.1 mg/dL Normal 0.5 - 1.3 mg/dL [facility] GFR/1.73 sq M.predicted among non-blacks MDRD (S/P/Bld) [Vol rate/Area] 56 mL/min/1.73 m2 Low >=59mL/min/1.73 m2 FT Chem S Potassium [Moles/Vol] 4.7 mmol/L Normal 3.5 - 5.3 mmol/L [facility] Sodium [Moles/Vol] 137 mmol/L Normal 135 - 145 mmol/L [facility] Urea nitrogen [Mass/Vol] 26 mg/dL High 5 - 21 mg/dL [facility] HEMATOLOGYOrdered By: SYSTEM SYSTEM on 05-17-2023 Basophils/100 [...] 84.0 % High 36.0 - 75.0 % FT HemeAutoSS Neutrophils/Leukocy blayne Auto (Bld) [Pure # fraction] 8.1 E9/L High 2.0 - 7.5 E9/L [facility] HEMATOLOGYOrdered By: Kayli Enriquez on 05-17-2023 [...] 30.9 pg Normal 27.0 - 34.0 pg [facility] HemeAutoSS MCHC (RBC) [Mass/Vol] 33.2 g/dL Normal 31.4 - 36.0 gm/dL [facility]eAutoSS MCV (RBC) [Entitic vol] 93.1 fL Normal 80.0 - 100.0 fL [facility] HemeAutoSS Platelet mean volume (Bld) [Entitic vol] 7.8 fL Normal 6.4 - 10.8 fL [facility] Platelets (Bld) [#/Vol] 196.0 E9/L Normal 150.0 - 500.0 E9/L [facility] RBC (Bld) [#/Vol] 3.9 E12/L Low 4.3 - 5.9 E12/L [facility] WBC corrected for nucl RBC Auto (Bld) [#/Vol] 9.6 E9/L Normal 4.0 - 11.0 E9/L [facility] CHEMISTRYOrdered By: SYSTEM SYSTEM on 05-16-2023 Anion gap [Moles/Vol] 13 mmol/L Normal 6 - 16 mEq/L [facility] Remisol Chloride [Moles/Vol] 103 mmol/L Normal 101 - 111 mmol/L [facility] CO2 [Moles/Vol] 24 mmol/L Normal 21 - 31 mmol/L [facility] Creatinine [Mass/Vol] 1.2 mg/dL Normal 0.5 - 1.3 mg/dL [facility] GFR/1.73 sq M.predicted among non-blacks MDRD (S/P/Bld) [Vol rate/Area] 51 mL/min/1.73 m2 Low >=59mL/min/1.73 m2 [facility] Chem S Glucose post fast [Mass/Vol] 132 mg/dL High 55 - 99 mg/dL [facility] Potassium [Moles/Vol] 3.8 mmol/L Normal 3.5 - 5.3 mmol/L [facility] Sodium [Moles/Vol] 136 mmol/L Normal 135 - 145 mmol/L [facility] Urea nitrogen [Mass/Vol] 31 mg/dL High 5 - 21 mg/dL [facility] HEMATOLOGYOrdered By: Millicent Andrade on 05-16-2023 Erythrocyte distribution width (RBC) [Ratio] 14.9 % High 10.9 - 14.2 % [facility] Hematocrit (Bld) [Volume fraction] 42.0 % Normal 34.0 - 46.0 % [facility] Hemoglobin (Bld) [Mass/Vol] 14.2 g/dL Normal 12.0 - 16.0 gm/dL [facility] MCH (RBC) [Entitic mass] 31.5 pg Normal 27.0 - 34.0 pg [facility] MCHC (RBC) [Mass/Vol] 33.9 g/dL Normal 31.4 - 36.0 gm/dL [facility] MCV (RBC) [Entitic vol] 92.8 fL Normal 80.0 - 100.0 fL [facility] Platelet mean volume (Bld) [Entitic vol] 8.6 fL Normal 6.4 - 10.8 fL [facility] Platelets (Bld) [#/Vol] 228.0 E9/L Normal 150.0 - 500.0 E9/L [facility] RBC (Bld) [#/Vol] 4.5 E12/L Normal 4.3 - 5.9 E12/L [facility] HemeAutoSS WBC corrected for nucl RBC Auto (Bld) [#/Vol] 8.4 E9/L Normal 4.0 - 11.0 E9/L [facility]eAutoSS URINALYSISOrdered By: Gomez alejandro on 05-16-2023 Bilirubin [...] Interpretation Code Negative [facility] UA Auto SS Suring.plasma/Lith ium.RBC (Bld) [Mass ratio] 0-3 /HPF Normal [...] PM) Invalid Interpretation Code 1.005 - 1.030 [facility] UA Auto SS UA Spec Desc [place] (05/16/23 3:41 PM) Normal [facility] UA Auto SS Urobilinogen Qn (U) [id number] {Rupert'U}/dL Normal 0.0 - 1.0 EU/dL [facility] UA Auto SS WBC Auto Ql (U) Negative (05/16/23 3:41 PM) Normal Negative [facility] UA Auto SS WBC LM.HPF (Urine sed) [#/Area] 0-5 /HPF Normal 0-5/HPF [facility] UA Auto SS CHEMISTRYOrdered By: SYSTEM SYSTEM on 03-26-2023 ALT No additional P-5'-P [Catalytic activity/Vol] 38 [iU]/d Normal 6 - 46 Int._Unit/L [facility] AST [Catalytic activity/Vol] 29 [iU]/d Normal [...] by: JODI PAPPAS Date: 2022-08-02 17:14 Normal [facility] CHEMISTRYOrdered By: SYSTEM SYSTEM on 07-20-2022 Anion gap [Moles/Vol] 11 mmol/L Normal 6 - 16 mEq/L [facility] Calcium [Mass/Vol] 9.9 mg/dL Normal 8.9 - 11.1 mg/dL [facility] Chloride [Moles/Vol] 104 mmol/L Normal 101 - 111 mmol/L [facility] CO2 [Moles/Vol] 28 mmol/L Normal 21 - 31 mmol/L [facility] Creatinine [Mass/Vol] 0.9 mg/dL Normal 0.5 - 1.3 mg/dL [facility] GFR/1.73 sq M.predicted among blacks MDRD (S/P/Bld) [Vol rate/Area] mL/min/1.73 m2 Normal >=59mL/min/1.73 m2 [facility] Chem S GFR/1.73 sq M.predicted among non-blacks MDRD (S/P/Bld) [Vol rate/Area] mL/min/1.73 m2 Normal >=59mL/min/1.73 m2 [facility] Chem S Glucose [Mass/Vol] 111 mg/dL Normal [...] analytical performance characteristics have been determined by [facility] [place], [place]. It has not been cleared or approved by the U.S. Food and Drug Administration. This assay has been validated pursuant to the CLIA regulations and is used for clinical purposes. Performed By: #### 5 43, 542, 545, 539 #### [facility] [address], [address] [place] [address] Brick Pitcher: Lenin Larson MD #### [id number] #### [facility], [address] [place] [address] Brick Pitcher: Sejal Johns MD,PhD,HENRIETTA #### [id number] #### [facility]/[place] [id number] [facility] [place], [place] Brick Pitcher: Sherwin Jay M.D.,PhD TETANUS ANTITOXOID 5.47 IU/mL Normal [facility] Comment on above: Order Comment: FASTI NG: [...] analytical performance characteristics have been determined by [facility] [place], [place]. It has not been cleared or approved by the U.S. Food and Drug Administration. This assay has been validated pursuant to the CLIA regulations and is used for clinical purposes. Performed By: #### 5 43, 542, 545, 539 #### [facility] [address], [address] [place] [address] Brick Pitcher: Lenin Larson MD #### [id number] #### [facility], [address] [place] [address] Brick Pitcher: Sejal Johns MD,PhD,HENRIETTA #### [id number] #### [facility]/[address] [place] Brick Pitcher: Sherwin Jay M.D.,PhD IMMUNOGLOBULIN Aon 2 IMMUNOGLOBULIN A 239 mg/dL Normal 70-320 [facility] Comment on above: Performed By: #### 5 43, 542, 545, 539 #### [facility] [address] , [address] [place] [address] Brick Pitcher: Lenin Larson MD #### [id number] #### [facility]/[place] [id number] Brick Pitcher: Sejal Johns MD,PhD,HENRIETTA #### [id number] #### [facility]/[address] [place], [place] Brick Pitcher: Sherwin Jay M.D.,PhD IMMUNOGLOBULIN Edis 2 IMMUNOGLOBULIN E 77 kU/L Normal [facility] Comment on above: Performed By: #### 5 43, 542, 545, 539 #### [facility] [address], [address] [place] [address] Brick Pitcher: Lenin Larson MD #### [id number] #### [facility], [address] [place], [place] [id number] Brick Pitcher: Sejal Johns MD,PhD,HENRIETTA #### [id number] #### [facility]/[place] [id number] [facility] [place], [place] Brick Pitcher: Sherwin Jay M.D.,PhD IMMUNOGLOBULIN Lenard 2 IMMUNOGLOBULIN G 1305 mg/dL Normal 600-1540 [facility] Comment on above: Performed By: #### 5 43, 542, 545, 539 #### [facility] [address], [address] [place] [address] Brick Pitcher: Lenin Larson MD #### [id number] #### [facility], [address] [place] [address] Brick Pitcher: Sejal Johns MD,PhD,HENRIETTA #### [id number] #### [facility]/[address] [place], [place] Brick Pitcher: Sherwin Jay M.D.,PhD IMMUNOGLOBULIN Mon 2 IMMUNOGLOBULIN M 203 mg/dL Normal 50-300 [facility] Comment on above: Performed By: #### 5 43, 542, 545, 539 #### [facility] [address], [address] [place] [address] Brick Pitcher: Lenin Larson MD #### [id number] #### [facility], [address] [place] [id number] Brick Pitcher: Sejal Johns MD,PhD,HENRIETTA #### [id number] #### [facility]/[address] [place] Brick Pitcher: Sherwin Jay M.D.,PhD STREPTOCOCCUS PNEUMONIAE AB (IGG) (23 SEROTYPES)on 05-05-2022 SEROTYPE 1 (1) 1.1 Normal [facility] Comment on above: Performed By: #### 5 43, 542, 545, 539 #### [facility] [address], [address] [place] [address] Brick Pitcher: Lenin Larson MD #### [id number] #### [facility], [address] [place] [address] Brick Pitcher: Sejal Johns MD,PhD,HENRIETTA #### [id number] #### [facility]/[address] [place] Brick Pitcher: Sherwin Jay M.D.,PhD SEROTYPE 12 (12F) 0.5 Normal [facility] Comment on above: Performed By: #### 5 43, 542, 545, 539 #### [facility] [address], [address] [place] [address] Brick Pitcher: Lenin Larson MD #### [id number] #### [facility], [address] [address] Brick Pitcher: Sejal Johns MD,PhD,HENRIETTA #### [id number] #### [facility]/[address] [place] Brick Pitcher: Sherwin Jay M.D.,PhD SEROTYPE 14 (14) 3.3 Normal [facility] Comment on above: Performed By: #### 5 43, 542, 545, 539 #### [facility] [address], [address] [place] [address] Brick Pitcher: Lenin Larson MD #### [id number] #### [facility], [address] [place], [place] [address] Brick Pitcher: Sejal Johns MD,PhD,HENRIETTA #### 59515 #### [facility]/[address] [place] Brick Pitcher: Sherwin Jay M.D.,PhD SEROTYPE 17 (17F) 5.4 Normal [facility] Comment on above: Performed By: #### 5 43, 542, 545, 539 #### [facility] [address], [address] [place] [address] Brick Pitcher: Lenin Larson MD #### [id number] #### [facility], [address] [place] [address] Brick Pitcher: Sejal Johns MD,PhD,HENRIETTA #### 70832 #### [facility]/[address] [place] Brick Pitcher: Sherwin Jay M.D.,PhD SEROTYPE 19 (19F) 4.3 Normal [facility] Comment on above: Performed By: #### 5 43, 542, 545, 539 #### [facility] [address], [address] Brick Pitcher: Lenin Larson MD #### 13222 #### [facility], [address] [place] [address] Brick Pitcher: Sejal Johns MD,PhD,HENRIETTA #### [id number] #### [facility]/[address] [place] Brick Pitcher: Sherwin Jay M.D.,PhD SEROTYPE 2 (2) 1.0 Normal [facility] Comment on above: Performed By: #### 5 43, 542, 545, 539 #### [facility] [address], [address] Brick Pitcher: Lenin Larson MD #### [id number] #### [facility], [address] [place] Brick Pitcher: Sejal Johns MD,PhD,HENRIETTA #### [id number] #### [facility]/[address] [place] Brick Pitcher: Sherwin Jay M.D.,PhD SEROTYPE 20 (20) 1.8 Normal [facility] Comment on above: Performed By: #### 5 43, 542, 545, 539 #### [facility] [address], [address] Brick Pitcher: Lenin Larson MD #### [id number] #### [facility], [address] [place] [address] Brick Pitcher: Sejal Johns MD,PhD,HENRIETTA #### 34540 #### [facility]/[address] [place] Brick Pitcher: Sherwin Jay M.D.,PhD SEROTYPE 22 (22F) <0.3 Normal [facility] Comment on above: Performed By: #### 5 43, 542, 545, 539 #### [facility] [address], [address] [place] [address] Brick Pitcher: Lenin Larson MD #### [id number] #### [facility], [address] [place] Brick Pitcher: Sejal Johns MD,PhD,HENRIETTA #### 53208 #### [facility]/[address] [place] Brick Pitcher: Sherwin Jay M.D.,PhD SEROTYPE 23 (23F) 4.9 Normal [facility] Comment on above: Performed By: #### 5 43, 542, 545, 539 #### [facility] [address], [address] [place] [address] Brick Pitcher: Lenin Larson MD #### 47357 #### [facility], [address] [place] [address] Brick Pitcher: Sejal Johns MD,PhD,HENRIETTA #### 71850 #### [facility]/[address] [place] Brick Pitcher: Sherwin Jay M.D.,PhD SEROTYPE 26 (6B) 0.5 Normal [facility] Comment on above: Performed By: #### 5 43, 542, 545, 539 #### [facility] of [place] [address], [address] [place] [address] Brick Pitcher: Lenin Larson MD #### 32040 #### [facility], [address] [place] [address] Brick Pitcher: Sejal Johns MD,PhD,HENRIETTA #### 40382 #### [facility]/[address] [place] Brick Pitcher: Sherwin Jay M.D.,PhD SEROTYPE 3 (3) 0.7 Normal [facility] Comment on above: Performed By: #### 5 43, 542, 545, 539 #### [facility] of [place] [address], [address] [place] [address] Brick Pitcher: Lenin Larson MD #### 54941 #### [facility], [address] [place] [address] Brick Pitcher: Sejal Johns MD,PhD,HENRIETTA #### 58760 #### [facility]/[address] [place] Brick Pitcher: Sherwin Jay M.D.,PhD SEROTYPE 34 (10A) 1.3 Normal [facility] Comment on above: Performed By: #### 5 43, 542, 545, 539 #### [facility] of [place] [address], [address] [place] [address] Brick Pitcher: Lenin Larson MD #### 68297 #### [facility], [address] [place] [id number] Brick Pitcher: Sejal Johns MD,PhD,HENRIETTA #### [id number] #### [facility]/[address] [place] Brick Pitcher: Sherwin Jay M.D.,PhD SEROTYPE 4 (4) 2.1 Normal [facility] Comment on above: Performed By: #### 5 43, 542, 545, 539 #### [facility] [address], [address] [place] [address] Brick Pitcher: Lenin Larson MD #### 30432 #### [facility]/[place] [address] Brick Pitcher: Sejal Johns MD,PhD,HENRIETTA #### 67941 #### [facility]/[address] [place] Brick Pitcher: Sherwin Jay M.D.,PhD SEROTYPE 43 (11A) 1.0 Normal [facility] Comment on above: Performed By: #### 5 43, 542, 545, 539 #### [facility] [address], [address] [place] [address] Brick Pitcher: Lenin Larson MD #### 74115 #### [facility]/[place] [id number] Brick Pitcher: Sejal Johns MD,PhD,HENRIETTA #### 17926 #### [facility]/[address] [place] Brick Pitcher: Sherwin Jay M.D.,PhD SEROTYPE 5 (5) 4.8 Normal [facility] Comment on above: Performed By: #### 5 43, 542, 545, 539 #### [facility] [address], [address] [place] [address] Brick Pitcher: Lenin Larson MD #### [id number] #### [facility], [address] [address] Brick Pitcher: Sejal Johns MD,PhD,HENRIETTA #### 71106 #### [facility] [address] [place] Brick Pitcher: Sherwin Jay M.D.,PhD SEROTYPE 51 (7F) 13.1 Normal [facility] Comment on above: Performed By: #### 5 43, 542, 545, 539 #### [facility] of [address], [address] [place] [address] Brick Pitcher: Lenin Larson MD #### [id number] #### [facility], [address] [address] Brick Pitcher: Sejal Johns MD,PhD,HENRIETTA #### 58115 #### [facility]/[address] [place] Brick Pitcher: Sherwin Jay M.D.,PhD SEROTYPE 54 (15B) 3.0 Normal [facility] Comment on above: Performed By: #### 5 43, 542, 545, 539 #### [facility] [address] , [address] [place] [address] Brick Pitcher: Lenin Larson MD #### 44492 #### [facility], [address] [id number] Brick Pitcher: Sejal Johns MD,PhD,HENRIETTA #### 83693 #### [facility] [address] [facility] [address] [place] Brick Pitcher: Sherwin Jay M.D.,PhD SEROTYPE 56 (18C) 18.3 Normal [facility] Comment on above: Performed By: #### 5 43, 542, 545, 539 #### [facility] of [place] [address] , [address] [place] [address] Brick Pitcher: Lenin Larson MD #### 34110 #### [facility], [address] [place] [address] Brick Pitcher: Sejal Johns MD,PhD,HENRIETTA #### [id number] #### [facility]/[place] [id number] [facility] [place] Brick Pitcher: Sherwin Jay M.D.,PhD SEROTYPE 57 19A) 14.1 Normal [facility] Comment on above: Performed By: #### 5 43, 542, 545, 539 #### [facility] of [place] [address] , [address] [place] [address] Brick Pitcher: Lenin Lasron MD #### 65268 #### [facility], [address] [place] [address] Brick Pitcher: Sejal Johns MD,PhD,HENRIETTA #### 18462 #### [facility]/[place] [id number] [facility] [place], [place] Brick Pitcher: Sherwin Jay M.D.,PhD SEROTYPE 68 9V) 0.7 Normal [facility] Comment on above: Performed By: #### 5 43, 542, 545, 539 #### [facility] [address], [address] [place] [address] Brick Pitcher: Lenin Larson MD #### 37881 #### [facility], [address] [place] [place] [address] Brick Pitcher: Sejal Johns MD,PhD,HENRIETTA #### 05916 #### [facility]/[place] [address] [facility] [place] [address] Brick Pitcher: Sherwin Jay M.D.,PhD SEROTYPE 70 (33F) <0.3 Normal [facility] Comment on above: Result Comment: Sero [...] serotype-specific titers may have less robust responses. [facility] uses a multi-analyte immunodetection (MAID) method. The method employs the [employer] flow cytometric system which measures multiple analytes [...] analytical performance characteristics have been determined by [facility]. It has not been cleared or approved by FDA. This assay has been validated pursuant to the CLIA regulations and used for clinical purposes. For additional information, please refer to http://education.FlexScore.impok/faq/ZLV656 (This link is being provided for informational/ educational purposes only.) Performed By: #### 5 43, 542, 545, 539 #### [facility] [address], [address] [place] [address] Brick Pitcher: Lenin Larson MD #### 44757 #### [facility], [address] [place], [place] Brick Pitcher: Sejal Johns MD,PhD,HENRIETTA #### 49800 #### [facility]/[address] [place] Brick Pitcher: Sherwin Jay M.D.,PhD SEROTYPE 8 (8) <0.3 Normal [facility] Comment on above: Performed By: #### 5 43, 542, 545, 539 #### [facility] of [address], [address] [place] [address] Brick Pitcher: Lenin Larson MD #### 48513 #### [facility], [address] [place] Brick Pitcher: Sejal Johns MD,PhD,HENRIETTA #### 73732 #### [facility] [address] [place] [address] [place] Brick Pitcher: Sherwin Jay M.D.,PhD SEROTYPE 9 (9N) <0.3 Normal [facility] Comment on above: Performed By: #### 5 43, 542, 545, 539 #### [facility] [address] [facility], [address] [place] [address] Brick Pitcher: Lenin Larson MD #### 24143 #### [facility], [address] [place] Brick Pitcher: Sejal Johns MD,PhD,HENRIETTA #### 53071 #### [facility] [address] [place] Brick Pitcher: Sherwin Jay M.D.,PhD XR FOOT LEFT 3+ [...] planus deformity. Findings compatible with Charcot foot. [employer] Workstation ID: [id number] Dictated by: JULIO GAN on SunAug 13, 2020 3:55:27 PM EDT Transcribed by: OMAYRA VILLAGRAN on SunAug 13, 2020 4:07:30 PM EDT Finalized by: JULIO GAN on SunAug 13, 2020 4:09:56 PM EDT [facility] Comment on above: Order Comment: Injur [...] JOINTS (FOUR JOINTS) HISTORY: Bilateral Charcot foot WELL LOGGING MUD ANALYSIS CAPTAIN(S): Senait Ochoa MD COMPARISON: Bilateral foot radiographs [...] foot was positioned flat on the table. Sizing Machine Tender fluoroscopic images demonstrate severe degenerative changes at [...] foot was positioned flat on the table. Sizing Machine Tender fluoroscopic images demonstrate moderately severe degenerative changes [...] naviculocuneiform joints using fluoroscopic guidance. Workstation ID: [id number] Dictated by: SENAIT OCHOA on SunJul 16, 2020 8:33:46 AM EDT Transcribed by: SENAIT OCHOA on SunJul 16, 2020 8:33:46 AM EDT Finalized by: SENAIT OCHOA on SunJul 16, 2020 8:33:46 AM EDT Normal [facility] 2020 Degenerative changes without acute osseous abnormality. Workstation ID: [id number] [facility] EXAMINATION: XR ANKLE RIGHT 2 VIEWS; XR [...] diffuse soft tissue swelling about the forefoot. [facility] Interface, Rad In Fuji Speechq - 2020 [...] without acute osseous abnormality. Workstation ID: [id number] [facility] XR ANKLE RIGHT 2 VIEWSon XR ANKLE [...] on SunMarch 09, 2020 12:49:55 PM EDT [facility] Comment on above: Order Comment: STAND ING [...] on SunMarch 09, 2020 12:49:55 PM EDT [facility] Comment on above: Order Comment: Injur [...] on SunMarch 09, 2020 12:49:55 PM EDT Normal [facility] Comment on above: Order Comment: Injur [...] noted. No other acute abnormalities. [facility] Workstation ID: [id number] [facility] EXAMINATION: XR FOOT LEFT 3+ VIEWS (STANDARD) [...] midfoot. No aggressive appearing erosive bony changes. [facility] Sebastián Pillai In Dezideaudie - 09/04/2019 3:30 PM EST EXAMINATION: XR [...] midfoot are noted. No other acute abnormalities. [employer] Workstation ID: [id number] [facility] XR FOOT LEFT 3+ VIEWS (STANDARD) EXAMINATION: [...] midfoot are noted. No other acute abnormalities. [employer] Workstation ID: [id number] Dictated by: VALERY BETH on SunSep 04, 2019 2:30:50 PM EST Transcribed by: SEBASTIÁN PILLAI IN [employer] on SunSep 04, 2019 3:05:20 PM EST Finalized by: VALERY BETH on SunSep 04, 2019 3:27:26 PM EST Normal [facility] Comment on above: Order Comment: Injur [...] pes planus deformity. 3. No new findings. [employer]oc[employer] Workstation ID: [id number] [facility] EXAMINATION: XR FOOT LEFT 3+ VIEWS (STANDARD) [...] by approximately 5 mm. This is stable. [facility] Interface, Rad In Jesenia Houstonq - 03/12/2019 1:23 PM EDT EXAMINATION: XR [...] 3. No new findings. [employer] Workstation ID: [id number] [facility] MR COMPARISON IMPORTon 02-06 This order has been auto-finalized and does not contain a result. [facility] XR COMPARISON IMPORTon 02-06 This order has been auto-finalized and does not contain a result. [facility] Vital Signs Date Time Vital Sign Value Performing Clinician Faci cynthia 08-19-2024 15:42-0400 Blood Pressure Location Mara [employer] [facility] 08-19-2024 15:42-0400 Diastolic blood pressure 78 mm[Hg] Michellehugh [employer] [facility] 08-19-2024 15:42-0400 Heart rate 81 /min Michellehugh [employer] [facility] 08-19-2024 15:42-0400 Respiratory rate 16 /min Mara [employer] [facility] 08-19-2024 15:42-0400 SaO2% (BldA) [Mass fraction] 96 % Michellehugh [employer] [facility] 08-19-2024 15:42-0400 Systolic blood pressure 112 mm[Hg] Michellehugh [employer] [facility] 08-19-2024 14:29-0400 Blood Pressure Location Mara [employer] [facility] 08-19-2024 14:29-0400 Body temperature 98.06 [degF] Michellehugh [employer] [facility] 08-19-2024 14:29-0400 Diastolic blood pressure 78 mm[Hg] Christopher BROWN [facility] 08-19-2024 14:29-0400 Heart rate 81 /min Christopher BROWN [facility] 08-19-2024 14:29-0400 SaO2% (BldA) [Mass fraction] 96 % Christopher BROWN [facility] 08-19-2024 14:29-0400 Systolic blood pressure 112 mm[Hg] Christopher BROWN [facility] 05-12-2024 18:54-0400 Blood Pressure Location Christopher BROWN [facility] 05-12-2024 18:54-0400 Diastolic blood pressure 80 mm[Hg] Christopher BROWN [facility] 05-12-2024 18:54-0400 Heart rate 67 /min Christopher BROWN [facility] 05-12-2024 18:54-0400 Respiratory rate 20 /min Christopher BROWN [facility] 05-12-2024 18:54-0400 SaO2% (BldA) [Mass fraction] 98 % Christopher BROWN [facility] 05-12-2024 18:54-0400 Systolic blood pressure 130 mm[Hg] Christopher BROWN [facility] 04-08-2024 13:15-0400 Blood Pressure Location EMELYN POLK [facility] 04-08-2024 13:15-0400 Diastolic blood pressure 76 mm[Hg] EMELYN POLK [facility] 04-08-2024 13:15-0400 Heart rate 65 /min EMELYN CHOWDARYTIZ [facility] 04-08-2024 13:15-0400 SaO2% (BldA) [Mass fraction] 98 % EMELYN POLK [facility] 04-08-2024 13:15-0400 Systolic blood pressure 138 mm[Hg] EMELYN CHOWDARYTIZ [facility] 03-24-2024 23:56-0400 Diastolic blood pressure 82 mm[Hg] Yuniel Ninfa [facility] 03-24-2024 23:56-0400 Heart rate 77 /min Yuniel Ninfa [facility] 03-24-2024 23:56-0400 Mean blood pressure 99 mm[Hg] Yuniel Ninfa [facility] 03-24-2024 23:56-0400 Respiratory rate 14 /min Yuniel Ninfa [facility] 03-24-2024 23:56-0400 SaO2% (BldA) [Mass fraction] 96 % Yuniel Ninfa [facility] 03-24-2024 23:56-0400 Systolic blood pressure 132 mm[Hg] Yuniel Ninfa [facility] 03-24-2024 23:24-0400 Heart rate 80 /min Yuniel Ninfa [facility] 03-24-2024 23:24-0400 Respiratory rate 20 /min Yuniel Ninfa [facility] 03-24-2024 23:15-0400 Heart rate 81 /min Yuniel Ninfa [facility] 03-24-2024 23:15-0400 Respiratory rate 20 /min Yuniel Ninfa [facility] 03-24-2024 23:15-0400 SaO2% (BldA) [Mass fraction] 99 % Yuniel Ninfa [facility] 03-24-2024 22:50-0400 Body temperature 98.24 [degF] Yuniel Ninfa [facility] 03-24-2024 22:50-0400 Diastolic blood pressure 75 mm[Hg] Yuniel Ninfa [facility] 03-24-2024 22:50-0400 Heart rate 86 /min Yuniel Ninfa [facility] 03-24-2024 22:50-0400 Respiratory rate 24 /min Yuniel Ninfa [facility] 03-24-2024 22:50-0400 SaO2% (BldA) [Mass fraction] 99 % Yuniel Ninfa [facility] 03-24-2024 22:50-0400 Systolic blood pressure 151 mm[Hg] Uyniel Ninfa [facility] 03-21-2024 14:41-0400 Blood Pressure Location Mara BEVERLY [facility] 03-21-2024 14:41-0400 Body temperature 98.24 [degF] Pandaer BROWN [facility] 03-21-2024 14:41-0400 Diastolic blood pressure 80 mm[Hg] Pandaer BROWN [facility] 03-21-2024 14:41-0400 Heart rate 70 /min Mara BEVERLY [facility] 03-21-2024 14:41-0400 Respiratory rate 16 /min Christopher BROWN [facility] 03-21-2024 14:41-0400 SaO2% (BldA) [Mass fraction] 97 % Christopher BROWN [facility] 03-21-2024 14:41-0400 Systolic blood pressure 136 mm[Hg] Christopher BROWN [facility] 03-10-2024 18:42-0400 Diastolic blood pressure 86 mm[Hg] Christopher BROWN [facility] 03-10-2024 18:42-0400 Mean blood pressure 103 mm[Hg] Christopher BROWN [facility] 03-10-2024 18:42-0400 Systolic blood pressure 138 mm[Hg] Christopher BROWN [facility] 03-10-2024 18:07-0400 Blood Pressure Location Christopher BROWN [facility] 03-10-2024 18:07-0400 Body temperature 98.24 [degF] Christopher BROWN [facility] 03-10-2024 18:07-0400 Diastolic blood pressure 90 mm[Hg] Christopher BROWN [facility] 03-10-2024 18:07-0400 Heart rate 77 /min Christopher BROWN [facility] 03-10-2024 18:07-0400 Respiratory rate 20 /min Christopher BROWN [facility] 03-10-2024 18:07-0400 SaO2% (BldA) [Mass fraction] 98 % Christopher BROWN [facility] 03-10-2024 18:07-0400 Systolic blood pressure 140 mm[Hg] Christopher BROWN [facility] 12-10-2023 18:36-0500 Blood Pressure Location Christopher BROWN [facility] 12-10-2023 18:36-0500 Diastolic blood pressure 80 mm[Hg] Christopher BROWN [facility] 12-10-2023 18:36-0500 Heart rate 77 /min Christopher BROWN [facility] 12-10-2023 18:36-0500 Respiratory rate 16 /min Christopher BROWN [facility] 12-10-2023 18:36-0500 SaO2% (BldA) [Mass fraction] 96 % Christopher BROWN [facility] 12-10-2023 18:36-0500 Systolic blood pressure 132 mm[Hg] Christopher BROWN [facility] 10-17-2023 14:46-0500 Blood Pressure Location Christopher BROWN [facility] 10-17-2023 14:46-0500 Body temperature 97.88 [degF] Christopher BROWN [facility] 10-17-2023 14:46-0500 Diastolic blood pressure 66 mm[Hg] Christopher BROWN [facility] 10-17-2023 14:46-0500 Heart rate 65 /min Christopher BROWN [facility] 10-17-2023 14:46-0500 SaO2% (BldA) [Mass fraction] 97 % Michellehugh BEVERLY [facility] 10-17-2023 14:46-0500 Systolic blood pressure 128 mm[Hg] Michellehugh BEVERLY [facility] 05-17-2023 14:00-0400 Hourly Rounding Melva Jc [facility] 05-17-2023 12:00-0400 Hourly Rounding Melva Grimaldo [facility] 05-17-2023 12:00-0400 Promise to Return Melva Grimaldo [facility] 05-17-2023 11:57-0400 Hourly Rounding Melva Grimaldo [facility] 05-17-2023 11:57-0400 Promise to Return Melva Grimaldo [facility] 05-17-2023 11:37-0400 Heart rate 69 /min Melva Grimaldo [facility] 05-17-2023 11:37-0400 SaO2% (BldA) [Mass fraction] 97 % Melva Grimaldo [facility] 05-17-2023 11:37-0400 Diastolic blood pressure 66 mm[Hg] Melva Grimaldo [facility] 05-17-2023 11:37-0400 Mean blood pressure 83 mm[Hg] Melva Grimaldo [facility] 05-17-2023 11:37-0400 Systolic blood pressure 117 mm[Hg] Melva Grimaldo [facility] 05-17-2023 11:37-0400 Body temperature 98.06 [degF] Melva Grimaldo [facility] 05-17-2023 10:06-0400 Promise to Return Melva Grimaldo [facility] 05-17-2023 08:47-0400 Heart rate 70 /min Melva Jc [facility] 05-17-2023 08:47-0400 SaO2% (BldA) [Mass fraction] 96 % Melva Jc [facility] 05-17-2023 08:47-0400 Diastolic blood pressure 66 mm[Hg] Melva Jc [facility] 05-17-2023 08:47-0400 Mean blood pressure 79 mm[Hg] Melva Grimaldo [facility] 05-17-2023 08:47-0400 Systolic blood pressure 105 mm[Hg] Melva Grimaldo [facility] 05-17-2023 08:47-0400 Body temperature 97.7 [degF] Melva Grimaldo [facility] 05-17-2023 08:11-0400 Heart rate 74 /min Melva Jc [facility] 05-17-2023 08:11-0400 SaO2% (BldA) [Mass fraction] 97 % Melva Grimaldo [facility] 05-17-2023 04:30-0400 Blood Pressure Location Melva Grimaldo [facility] 05-17-2023 04:30-0400 Body temperature 98.06 [degF] Melva Grimaldo [facility] 05-17-2023 04:30-0400 Diastolic blood pressure 74 mm[Hg] Melva Grimaldo [facility] 05-17-2023 04:30-0400 Mean blood pressure 93 mm[Hg] Melva Grimaldo [facility] 05-17-2023 04:30-0400 Respiratory rate 18 /min Melva Grimaldo [facility] 05-17-2023 04:30-0400 Systolic blood pressure 130 mm[Hg] Melva Grimaldo [facility] 05-17-2023 02:18-0400 Body temperature 97.52 [degF] Melva Grimaldo [facility] 05-17-2023 02:18-0400 Mean blood pressure 85 mm[Hg] Melva Grimaldo [facility] 05-16-2023 23:38-0400 Body temperature 97.34 [degF] Melva Grimaldo [facility] 05-16-2023 23:38-0400 Mean blood pressure 95 mm[Hg] Melva Grimaldo [facility] 05-16-2023 23:38-0400 Respiratory rate 17 /min Melva Grimaldo [facility] 05-16-2023 20:25-0400 Respiratory rate 16 /min Melva Grimaldo [facility] 05-16-2023 20:08-0400 Respiratory rate 16 /min Melva Grimaldo [facility] 05-16-2023 16:52-0400 Body temperature 97.34 [degF] Melva Grimaldo [facility] 05-16-2023 16:52-0400 Respiratory rate 12 /min Melva Grimaldo [facility] 05-16-2023 16:40-0400 Respiratory rate 16 /min Melva Grimaldo [facility] 05-16-2023 16:27-0400 Body temperature 97.34 [degF] Melva Grimaldo [facility] 05-16-2023 12:15-0400 Blood Pressure Location Melva Grimaldo [facility] 05-16-2023 12:12-0400 Heart rate 70 /min Melva Grimaldo [facility] 03-23-2023 10:32-0400 Blood Pressure Location Mara BEVERLY [facility] 03-23-2023 10:32-0400 Diastolic blood pressure 74 mm[Hg] Mara BEVERLY [facility] 03-23-2023 10:32-0400 Heart rate 76 /min Mara BEVERLY [facility] 03-23-2023 10:32-0400 Respiratory rate 20 /min Mara BEVERLY [facility] 03-23-2023 10:32-0400 SaO2% (BldA) [Mass fraction] 98 % Mara BEVERLY [facility] 03-23-2023 10:32-0400 Systolic blood pressure 132 mm[Hg] Mara BEVERLY [facility] 01-19-2023 17:36-0400 Diastolic blood pressure 96 mm[Hg] Robyn David [facility] 01-19-2023 17:36-0400 Mean blood pressure 113 mm[Hg] Robyn David [facility] 01-19-2023 17:36-0400 Systolic blood pressure 148 mm[Hg] Robyn David [facility] 01-19-2023 16:43-0400 Blood Pressure Location Robyn David [facility] 01-19-2023 16:43-0400 Diastolic blood pressure 100 mm[Hg] Robynjorge Hernandez [facility] 01-19-2023 16:43-0400 Heart rate 87 /min Robyn David [facility] 01-19-2023 16:43-0400 Respiratory rate 20 /min Robynjorge Beverlyant [facility] 01-19-2023 16:43-0400 SaO2% (BldA) [Mass fraction] 97 % Robynjorge Beverlyant [facility] 01-19-2023 16:43-0400 Systolic blood pressure 150 mm[Hg] Robynjorge Beverlyant [facility] 08-22-2022 09:41-0400 Diastolic blood pressure 66 mm[Hg] Nathaly STANG [facility] 08-22-2022 09:41-0400 Mean blood pressure 92 mm[Hg] Nathaly STANG [facility] 08-22-2022 09:41-0400 Systolic blood pressure 145 mm[Hg] Nathaly STANG [facility] 08-22-2022 09:38-0400 Blood Pressure Location Nathaly STANG [facility] 08-22-2022 09:38-0400 Diastolic blood pressure 71 mm[Hg] Nathaly STANG [facility] 08-22-2022 09:38-0400 Heart rate 69 /min Nathaly STANG [facility] 08-22-2022 09:38-0400 Respiratory rate 18 /min Nathaly STANG [facility] 08-22-2022 09:38-0400 SaO2% (BldA) [Mass fraction] 96 % Nathaly STANG [facility] 08-22-2022 09:38-0400 Systolic blood pressure 147 mm[Hg] Nathalyyon LOPEZG [facility] 08-12-2022 12:38-0400 Blood Pressure Location Kim TAMEZ [facility] 08-12-2022 12:38-0400 Body temperature 98.42 [degF] Kim DASAHWN [facility] 08-12-2022 12:38-0400 Diastolic blood pressure 86 mm[Hg] Kim DASHAWN [facility] 08-12-2022 12:38-0400 Heart rate 65 /min Kim DASHAWN [facility] 08-12-2022 12:38-0400 SaO2% (BldA) [Mass fraction] 97 % Kim TAMEZ [facility] 08-12-2022 12:38-0400 Systolic blood pressure 134 mm[Hg] Kim REYLEY [facility] 06-28-2022 09:21-0400 Diastolic blood pressure 77 mm[Hg] Nathalyyon TURCIOS [facility] 06-28-2022 09:21-0400 Mean blood pressure 107 mm[Hg] Nathalyyon TURCIOS [facility] 06-28-2022 09:21-0400 Systolic blood pressure 168 mm[Hg] Anthalyyon LOPEZG [facility] 06-28-2022 09:10-0400 Blood Pressure Location Anthalyyon TURICOS [facility] 06-28-2022 09:10-0400 Diastolic blood pressure 76 mm[Hg] Nathaly STANG [facility] 06-28-2022 09:10-0400 Heart rate 60 /min Nathaly TURCIOS [facility] 06-28-2022 09:10-0400 Respiratory rate 18 /min Nathaly TURCIOS [facility] 06-28-2022 09:10-0400 SaO2% (BldA) [Mass fraction] 100 % Nathaly TURCIOS [facility] 06-28-2022 09:10-0400 Systolic blood pressure 172 mm[Hg] Nathaly TURCIOS [facility] 05-18-2022 15:40-0400 Diastolic blood pressure 75 mm[Hg] Dolores Christofferson [facility] 05-18-2022 15:40-0400 Mean blood pressure 101 mm[Hg] Dolores Christofferson [facility] 05-18-2022 15:40-0400 Systolic blood pressure 154 mm[Hg] Dolores Christofferson [facility] 05-18-2022 15:30-0400 Blood Pressure Location Dolores Christofferson [facility] 05-18-2022 15:30-0400 Diastolic blood pressure 75 mm[Hg] Dolores Christofferson [facility] 05-18-2022 15:30-0400 Heart rate 81 /min Dolores Christofferson [facility] 05-18-2022 15:30-0400 Respiratory rate 18 /min Dolores Christofferson [facility] 05-18-2022 15:30-0400 SaO2% (BldA) [Mass fraction] 100 % Dolores Christofferson [facility] 05-18-2022 15:30-0400 Systolic blood pressure 173 mm[Hg] Dolores Gray [facility] 04-25-2022 18:29-0400 Diastolic blood pressure 62 mm[Hg] Mara BROWN [facility] 04-25-2022 18:29-0400 Mean blood pressure 87 mm[Hg] Christopher BROWN [facility] 04-25-2022 18:29-0400 Systolic blood pressure 136 mm[Hg] Pandaer BROWN [facility] 04-25-2022 18:12-0400 Blood Pressure Location Christhugh BEVERLY [facility] [place] 04-25-2022 18:12-0400 Body temperature 98.6 [degF] Mara BEVERLY [facility] Javi 04-25-2022 18:12-0400 Diastolic blood pressure 90 mm[Hg] Mara BROWN [facility] [place] 04-25-2022 18:12-0400 Heart rate 76 /min Christangeler BROWN [facility] 04-25-2022 18:12-0400 Respiratory rate 18 /min Christopher BROWN [facility] 04-25-2022 18:12-0400 SaO2% (BldA) [Mass fraction] 96 % Christangeler BROWN [facility] 04-25-2022 18:12-0400 Systolic blood pressure 156 mm[Hg] Christangeler BROWN [facility] 03-14-2022 10:20-0400 Blood Pressure Location Mara BEVERLY [facility] 03-14-2022 10:20-0400 Diastolic blood pressure 80 mm[Hg] Christangeler BROWN [facility] 03-14-2022 10:20-0400 Heart rate 74 /min Christangeler BROWN [facility] [place] 03-14-2022 10:20-0400 Respiratory rate 20 /min Mara BEVERLY [facility] [place] 03-14-2022 10:20-0400 SaO2% (BldA) [Mass fraction] 95 % Mara BEVERLY [facility] [place] 03-14-2022 10:20-0400 Systolic blood pressure 130 mm[Hg] Christopher BROWN [facility] 07-15-2020 13:39-0400 BP Diastolic 61 mm[Hg] Senait Viyucaipastad [facility] 07-15-2020 13:39-0400 BP Systolic 126 mm[Hg] [facility] 13:39-0400 Pulse (Heart Rate) 67 /min [facility] 09-24-2020 13:39-0400 Pulse Oximetry 96 % [facility] Gildardomarcelo [facility] 07-15-2020 13:39-0400 Respiratory Rate 16 /min [facility] Joanna [facility] 07-13-2020 10:11-0400 BP Diastolic 75 mm[Hg] [facility] Gildardomarcelo [facility] 07-13-2020 10:11-0400 BP Systolic 140 mm[Hg] [facility] 07-13-2020 10:00-0400 BMI (Body Mass Index) 39.89 kg/m2 [facility]-13-[facility] 10:00-0400 Body weight 126.1 kg [facility] Gildardomarcelo [facility] 07-13-2020 10:00-0400 [facility] 177.8 [facility]-13-2020 10:00-0400 Pulse (Heart Rate) 67 /min [facility] 06-14-2020 10:39-0400 BMI (Body Mass Index) 39.31 kg/m2 Carlos Carter [facility] 06-14-2020 10:39-0400 Body weight 124.29 kg Carlos Carter [facility] 06-14-2020 10:39-0400 BP Diastolic 80 mm[Hg] Carlos Carter [facility] 06-14-2020 10:39-0400 BP Systolic 114 mm[Hg] Carlos Carter [facility] 06-14-2020 10:39-0400 Height 177.8 cm Carlos Carter [facility] 06-14-2020 10:39-0400 Pulse (Heart Rate) 73 /min Carlos Catrer [facility] 06-02-2020 14:37-0400 BMI (Body Mass Index) 39.39 kg/m2 Javier Prykhodko [facility] 06-02-2020 14:37-0400 Body weight 124.51 kg Javier Prykhodko [facility] 06-02-2020 14:37-0400 BP Diastolic 82 mm[Hg] Javier Prykhodko [facility] 06-02-2020 14:37-0400 BP Systolic 146 mm[Hg] Javier Prykhodko [facility] 06-02-2020 14:37-0400 Height 177.8 cm Javier Prykhodko [facility] 06-02-2020 14:37-0400 Pulse (Heart Rate) 71 /min Javier Prykhodko [facility] 06-02-2020 14:37-0400 Pulse Oximetry 96 % Javier Fischer [facility] 04-20-2020 13:51-0400 BMI (Body Mass Index) 38.31 kg/m2 [facility] 04-20-2020 13:51-0400 Body weight 121.11 kg [facility] 04-20-2020 13:51-0400 BP Diastolic 85 mm[Hg] Vogel [facility] 04-20-2020 13:51-0400 BP Systolic 151 mm[Hg] Vogel [facility] 04-20-2020 13:51-0400 Height 177.8 cm [facility] 04-20-2020 13:51-0400 Pulse (Heart Rate) 61 /min [facility] 04-20-2020 13:51-0400 Pulse Oximetry 99 % [facility] 2020 14:03-0400 BMI (Body Mass Index) 39.67 kg/m2 [facility] 2020 14:03-0400 Body weight 125.42 kg [facility] 2020 14:03-0400 BP Diastolic 78 mm[Hg] [facility] 2020 14:03-0400 BP Systolic 144 mm[Hg] [facility] 2020 14:03-0400 Height 177.8 cm [facility] 2020 14:03-0400 Pulse (Heart Rate) 72 /min [facility] 2020 14:03-0400 Pulse Oximetry 99 % [facility] 2020 10:32-0400 BMI (Body Mass Index) 40.89 kg/m2 Carlos Exten [facility] 2020 10:32-0400 Body weight 129.28 kg Carlos Exten [facility] 2020 10:32-0400 BP Diastolic 70 mm[Hg] Carlos Exten [facility] 2020 10:32-0400 BP Systolic 151 mm[Hg] Carlos Exten [facility] 2020 10:32-0400 Height 177.8 cm Carlos Exten [facility] 2020 10:32-0400 Pulse (Heart Rate) 69 /min Carlos Carter [facility] 09-04-2019 08:31-0500 BMI (Body Mass Index) 40.89 kg/m2 Carlos Carter [facility] 09-04-2019 08:31-0500 Body weight 129.28 kg Carlos Carter [facility] 09-04-2019 08:31-0500 BP Diastolic 84 mm[Hg] Carlos Carter [facility] 09-04-2019 08:31-0500 BP Systolic 147 mm[Hg] Carlos [facility] 09-04-2019 08:31-0500 Height 177.8 cm Carlos [facility] 09-04-2019 08:31-0500 Pulse (Heart Rate) 59 /min Carlos [facility] 03-12-2019 10:07-0400 BMI (Body Mass Index) 40.89 kg/m2 Carlos [facility] 03-12-2019 10:07-0400 BP Diastolic 87 mm[Hg] Carlos [facility] 03-12-2019 10:07-0400 BP Systolic 146 mm[Hg] Carlos [facility] 03-12-2019 10:07-0400 Height 177.8 cm Carlos [facility] 03-12-2019 10:07-0400 Pulse (Heart Rate) 79 /min Carlos [facility] 03-12-2019 10:07-0400 Weight 129.28 kg Carlos [facility] 02-05-2019 14:07-0400 BMI (Body Mass Index) 40.89 kg/m2 Carlos [facility] 02-05-2019 14:07-0400 BP Diastolic 70 mm[Hg] Carlos [facility] 02-05-2019 14:07-0400 BP Systolic 120 mm[Hg] Carlos [facility] 02-05-2019 14:07-0400 Height 177.8 cm Carlos [facility] 02-05-2019 14:07-0400 Pulse (Heart Rate) 91 /min Carlos [facility] 02-05-2019 14:07-0400 Weight 129.28 kg Carlos [facility] Encounters Encounter Date Encounter Type Care Provider Facility Start: 08-20-2025 ambulatory Mara Joshua ity:[facility] Start: 09-02-2024 End: 09-02-2024 ambulatory Julio Johnson Facility:[facility] Start: 09-02-2024 End: 09-02-2024 Departed Referred Julio Johnson DPM Work Phone: [facility] Start: 08-19-2024 End: 08-19-2024 ambulatory Mara BEVERLY [facility] Start: 08-19-2024 End: 08-19-2024 Patient encounter procedure Mara BEVERLY [facility] Start: 08-19-2024 End: 08-19-2024 Well adult monitoring check done Mara BEVERLY [facility] Start: 07-29-2024 End: 07-29-2024 Bamboo flowsheet Haily Shepard MD Work Phone: [facility] Start: 07-29-2024 End: 07-29-2024 Bamboo flowsheet Haily Shepard MD Work Phone: [facility] Start: 07-29-2024 End: 07-29-2024 ambulatory HAILY SHEPARD Not Available Start: 07-14-2024 End: 09-19-2024 Admission to same day surgery center Melva Grimaldo [facility] Start: 07-14-2024 End: 09-19-2024 ambulatory Melva Grimaldo Facility:[facility] Start: 07-10-2024 End: 07-10-2024 ambulatory MELVA GRIMALDO Not Available Start: 07-10-2024 End: 07-10-2024 ambulatory MELVA GRIMALDO Not Available Start: 06-19-2024 ambulatory Mara BEVERLY Facil ity:[facility] Start: 05-21-2024 ambulatory Mara BEVERLY Facil ity:[facility] Start: 05-14-2024 End: 05-14-2024 ambulatory Mara BEVERLY Facility:[facility] Start: 05-14-2024 End: 05-14-2024 Patient encounter procedure Mara BEVERLY [facility] Start: 05-13-2024 End: 05-13-2024 ambulatory MELVA GRIMALDO Not Available Start: 05-12-2024 End: 05-12-2024 Lab Drop off Mara BEVERLY [facility] Start: 05-12-2024 End: 05-12-2024 [facility]ulatory [facility] [place] Facility[facility] Start: 05-12-2024 End: 05-12-2024 [facility] Start: 04-14-2024 End: 04-14-2024 ambulatory [facility] [place] Facility:[facility] Start: 04-14-2024 End: 04-14-2024 Patient encounter procedure Mara BEVERLY [facility] Start: 04-08-2024 End: 04-08-2024 ambulatory [facility] Facility:[facility] Start: 04-08-2024 End: 04-08-2024 Patient encounter procedure EMELYN POLK [facility] Start: 03-24-2024 End: 03-25-2024 Emergency department patient visit Yuniel Ocasio [facility] Start: 03-21-2024 End: 03-21-2024 ambulatory [facility] [place] Start: 03-21-2024 End: 03-21-2024 Patient encounter procedure Mara BEVERLY [facility] Start: 03-10-2024 End: 03-10-2024 ambulatory Mara BEVERLY Facility:[facility] Start: 03-10-2024 End: 03-10-2024 Patient encounter procedure Mara BEVERLY [facility] Start: 12-10-2023 End: 12-10-2023 ambulatory Mara BEVERLY Facility: [facility] Start: 12-10-2023 End: 12-10-2023 Patient encounter procedure Mara BEVERLY [facility] Start: 10-18-2023 End: 10-18-2023 ambulatory DOLORES M MEDVES Not Available Start: 10-17-2023 End: 10-17-2023 ambulatory Michellehugh BEVERLY Facility:[facility] Start: 10-17-2023 End: 10-17-2023 Patient encounter procedure Mara BEVERLY [facility] Start: 10-16-2023 End: 10-16-2023 ambulatory BUBBA TURNER Not Available Start: 10-09-2023 End: 10-09-2023 ambulatory BUBBA TURNER Not Available Start: 10-04-2023 End: 10-04-2023 ambulatory DONG DEPOY Not Available Start: 10-03-2023 End: 10-03-2023 ambulatory DOLORES M MEDVES Not Available Start: 09-27-2023 End: 09-27-2023 ambulatory DONG DEPOY Not Available Start: 09-25-2023 End: 09-25-2023 ambulatory BUBBA TURNER Not Available Start: 09-20-2023 End: 09-20-2023 ambulatory DONG DEPOY Not Available Start: 09-18-2023 End: 09-18-2023 ambulatory BUBBA TURNER Not Available Start: 09-11-2023 End: 09-11-2023 ambulatory DOLORES M MEDVES Not Available Start: 09-11-2023 End: 09-11-2023 ambulatory MELVA GRIMALDO Not Available Start: 09-07-2023 End: 09-07-2023 ambulatory BUBBA TURNER Not Available Start: 09-04-2023 End: 09-04-2023 ambulatory BUBBA TURNER Not Available Start: 05-16-2023 End: 05-17-2023 Admission to same day surgery center Melva Grimaldo [facility] Start: 03-26-2023 End: 03-26-2023 Patient encounter procedure Mara BEVERLY [facility] Start: 03-23-2023 End: 03-23-2023 Encounter for general adult medical examination with abnormal findings Mara BEVERLY [facility] [place] Start: 03-23-2023 End: 03-23-2023 Patient encounter procedure Mara BEVERLY [facility] [place] Start: 01-19-2023 End: 01-19-2023 Patient encounter procedure Robyn Hernandez [facility] [place] Start: 08-29-2022 End: 08-29-2022 Encounter for general adult medical examination with abnormal findings Mara BEVERLY [facility] Start: 08-29-2022 End: 08-29-2022 Patient encounter procedure Mara BEVERLY [facility] [place] Start: 08-22-2022 End: 08-22-2022 Patient encounter procedure Nathaly TURCIOS [facility] Start: 08-12-2022 End: 08-12-2022 Patient encounter procedure Kim TAMEZ [facility] Start: 08-02-2022 End: 08-03-2022 ambulatory JULIO Mccray [facility] Facility: Start: 07-20-2022 End: 07-20-2022 Patient encounter procedure Nathaly TURCIOS [facility] Start: 06-28-2022 End: 06-28-2022 Patient encounter procedure Nathaly TURCIOS [facility] Start: 05-18-2022 End: 05-18-2022 Patient encounter procedure Dolores Gray [facility] Start: 04-25-2022 End: 04-25-2022 Patient encounter procedure Mara BEVERLY [facility] Start: 03-14-2022 End: 03-14-2022 Patient encounter procedure Mara BEVERLY [facility] Start: 09-19-2021 End: 02-06-2022 Recurring SALOME EDMONDS [facility] Start: 12-23-2020 End: 12-23-2020 Orders Only Shaylee Theodore Work Phone: [facility] Start: 08-13-2020 End: 08-14-2020 Patient encounter procedure CARLOS GERBER EXTEN [facility] Start: 07-15-2020 End: 07-15-2020 Patient encounter procedure CARLOS GERBER EXTEN [facility] Start: 07-15-2020 End: 07-15-2020 Subsequent hospital visit by physician Senait Ochoa Work Phone: [facility] Comment on above: Charcot's joint of l eft foot; Charcot's joint of left foot Start: 07-13-2020 End: 07-17-2020 Patient encounter procedure CARLOS CARTER [facility] Start: 07-13-2020 End: 07-18-2020 Office outpatient new 45 minutes Carlos Carter Work Phone: [facility] Comment on above: Charcot's joint of l eft foot (Primary Dx); Neuropathy, idiopathic; Pain Start: 06-14-2020 End: 06-14-2020 Patient encounter procedure CARLOS CARTER [facility] Start: 06-14-2020 End: 06-14-2020 Office outpatient visit 15 minutes Carlos Carter Work Phone: [facility] Comment on above: Charcot's joint of l eft foot (Primary Dx); Neuropathy, idiopathic Start: 06-02-2020 End: 06-02-2020 Patient encounter procedure JAVIER RAMBONEHACLARE FONGYKHODKO [facility] Start: 06-02-2020 End: 06-02-2020 Office outpatient visit 25 minutes Javier Shay Ajitykhodko Work Phone: [facility] Comment on above: History functional e ndoscopic sinus surgery (FESS) with revision (Primary Dx); Sinus pressure; Chronic allergic rhinitis; Fatigue, unspecified type Start: 04-20-2020 End: 04-20-2020 Patient encounter procedure JASPREET CONTI [facility] Start: 04-20-2020 End: 04-20-2020 Office outpatient visit 15 minutes Jaspreet Conti Work Phone: [facility] Comment on above: Recurrent sinusitis (Primary Dx); Chronic rhinitis Start: 2020 End: 2020 Patient encounter procedure MARA BEVERLY [facility] Start: 2020 End: 2020 Office outpatient new 30 minutes Mara Beverly Work Phone: [facility] Comment on above: Chronic rhinitis (Pr imary Dx); Acute recurrent frontal sinusitis; Fatigue, unspecified type Start: 2020 End: 03-10-2020 Patient encounter procedure CARLOS FOREMANJohn CARTER [facility] Start: 2020 End: 2020 Subsequent hospital visit by physician Carlos Carter Work Phone: [facility] Comment on above: Pain Start: 2020 End: 2020 Office outpatient visit 15 minutes Carlos Zabrinajohn Carter Work Phone: [facility] Comment on above: Charcot's joint of l eft foot (Primary Dx); Neuropathy, idiopathic Start: 01-13-2020 Patient encounter procedure JAVIER SHAY AJITSAMY [facility] Start: 09-04-2019 End: 09-05-2019 Patient encounter procedure CARLOS GERBER EMMA [facility] Start: 09-04-2019 End: 09-04-2019 Subsequent hospital visit by physician Carlos Carter Work Phone: [facility] Comment on above: Charcot's joint of l eft foot Start: 09-04-2019 End: 09-04-2019 Office outpatient visit 15 minutes Carlos Zabrinajohn Carter Work Phone: [facility] Comment on above: Charcot's joint of l eft foot (Primary Dx); Neuropathy, idiopathic Start: 03-12-2019 End: 03-12-2019 Patient encounter procedure Carlos Zabrinajohn Carter Work Phone: [facility] Comment on above: Pain Start: 03-12-2019 End: 03-12-2019 Office outpatient visit 15 minutes Carlos Carter Work Phone: [facility] Comment on above: Charcot's joint of l eft foot (Primary Dx) Start: 02-06-2019 End: 02-07-2019 Patient encounter procedure PROVIDER NOT IN [facility] Start: 02-06-2019 End: 02-06-2019 Patient encounter procedure Provider Not In [facility] External Films Comment on above: Arrived Start: 02-05-2019 End: 02-05-2019 Subsequent hospital visit by physician Carlos Carter Work Phone: [facility] Comment on above: Pain Start: 02-05-2019 End: 02-05-2019 Office outpatient new 30 minutes Carlosarabella Foremanjohn Carter Work Phone: [facility] Comment on above: Charcot's joint of l eft foot (Primary Dx); Neuropathy, idiopathic Procedures Date Procedure Procedure Detail Performing Clinician Start: 07-29-2024 End: 07-29-2024 [facility] medical xm&eval compre new pt 1/> vst Type 2 diabetes mellitus without complication, without long-term current use of insulin (CMS/HCC) Haily Shepard MD Work Phone: Comment on above: Type 2 diabetes anisa itus without complication, without long- term current use of insulin (CMS/[facility]) (Primary Dx); Pseudophakia Start: 05-16-2023 Total knee replacement Melva Grimaldo Start: 04-02-2023 Arthroplasty of knee Mi chanel Grimaldo Start: 08-18-2021 Colonoscopy SALOME BLACKBURN I Start: 01-10-2021 Structure of left fo ot (body structure) SALOME EDMONDS Comment on above: reconstruction surge ry of left foot per dr johnson @ [facility] Start: 08-18-2020 Radiofrequency dener vation of spinal facet joint of lumbar vertebra SALOME EDMONDS Comment on above: bilat L3-L5 RFA- 60% relief Start: 07-21-2020 Injection of facet j oint using fluoroscopic guidance SALOME EDMONDS Comment on above: B/L L3-L4 MBB 50% re lief for 8-10 hours Start: 07-07-2020 Injection of facet j oint using fluoroscopic guidance SALOME EDMONDS Comment on above: L3-L5 80% relief Start: 07-05-2020 Cataract extraction and insertion of intraocular lens SALOME EDMONDS Start: 03-10-2020 Injection of sacroil iac joint using fluoroscopic guidance AMAR GREY Comment on above: Bilateral SIJI-70% r elief Start: 2020 End: 2020 X-ray of right foot Carlos Carter Work Phone: Start: 2020 Radiologic examinati on ankle 2 views Carlos Carter Work Phone: Start: 12-02-2019 Injection of sacroil iac joint using fluoroscopic guidance AMAR GREY Comment on above: bilat SIJI- 50% reli ef Start: 09-04-2019 X-ray of left foot Zena Carter Work Phone: Start: 08-27-2019 Sacroiliac joint injection 7 AMAR GREY Comment on above: B/L 80% relief. Start: 05-28-2019 Injection of sacroil iac joint using fluoroscopic guidance AMAR GREY Comment on above: B/L 75% relief Start: 03-12-2019 X-ray of left foot Zena Carter Work Phone: Start: 02-06-2019 Radiographic imaging procedure External Transcribed Start: 02-06-2019 Magnetic resonance imaging External Transcribed Start: 02-05-2019 Injection of sacroil iac joint using fluoroscopic guidance AMAR GREY Comment on above: 90% relief since pro cedure. Start: 11-13-2018 Left Transforaminal Epidural Steroid Injection 10 AMAR GREY Comment on above: left L5+S1 approx 50 % relief X 2 weeks Start: 09-25-2018 Epidural injection o f lumbar spine using fluoroscopic guidance AMAR GREY Comment on above: L3-L4 -25% relief si nce injection x 2 weeks Start: 07-17-2018 Transforaminal Epidu ral Steroid Injection 12 AMAR GREY Comment on above: Left -70% relief x o ne month. Pt. reports 40% relief today. Start: 06-12-2018 epidural steroid injection 13 SALOME EDMONDS Comment on above: L5-S1 60% relief for 3 weeks Start: 04-10-2018 transforaminal epidu ral steroid injection 14 AMVICENTA EDMONDS Comment on above: left L5+S1 80% relie f to present Start: 04-01-2018 Cataract extraction and insertion of intraocular lens SALOME EDMONDS Comment on above: right eye Start: 04-18-2017 transforaminal stero id injection 16 AMVICENTA EDMONDS Comment on above: L5-S1 left side 80% relief for 1 month. Start: 07-11-2016 EVLT LGSV SALOME BLACKBURN I Start: 03-29-2016 ABHINAV lumbosacral 17 AMAR GREY Comment on above: L5-S1 80% relief Start: 12-22-2015 transforaminal stero id injection 18 AMVICENTA KILPATRICKTI Comment on above: Lt L5-S1- 80% relief for 6 weeks Start: 09-15-2015 transforaminal stero id injection 19 AMAR GREY Comment on above: Lt L5-S1-80% relief for 6 week Start: 06-30-2015 transforaminal stero id injection 20 AMAR GREY Comment on above: Lt L5-S1-80% relief for 6 weeks Start: 04-30-2015 Transforaminal steri od injection 21, 22 AMAR GREY Comment on above: Left L5 +S1 80% relief for 6 wee ks Start: 02-12-2015 Trasforaminal sterio d injection 23, 24 AMAR GREY Comment on above: Left L5-S1 80% relief for 6 wee ks Start: 11-20-2014 Transforaminal steri od injection 25, 26 AMVICENTA KILPATRICKTI Comment on above: Left L5-S1 80% relief for 6 wee ks Start: 05-22-2014 Transforaminal epidu ral steroid injection 27 AMAR GREY Comment on above: Left L5 + S1 70% rel ief Start: 01-28-2014 Epidural injection o f lumbar spine using fluoroscopic guidance AMAR GREY Comment on above: L5-S1 60% relief Start: 11-19-2013 Epidural injection o f lumbar spine using fluoroscopic guidance AMAR GREY Comment on above: L5-S1 30% relief Start: 09-24-2013 Epidural injection o f lumbar spine using fluoroscopic guidance AMAR GREY Comment on above: L5-S1 65% relief Start: 10-22-2011 scraping of the elbow-right AMVICENTA KILPATRICKTI Start: 10-22-2008 Hysterectomy AMVICENTA ANNALAT I Start: 10-22-1964 Tonsillectomy AMAR GULA TI Congestion of nasal sinus (disorder) AMAR GREY Comment on above: 02/27 Hysterectomy AMAR GREY Comment on above: 2008 sinus surgeries 34 AMAR GULA TI Comment on above: x2; 2007, 2011 Swelling of first metatarsophalangeal joint of hallux (disorder) AMAR GREY Comment on above: removal Transforaminal epidu ral steroid injection 35 AMAR GREY Comment on above: L5-S1- 75% relief si nce Plan of Treatment Date Care Activity Detail Author Start: 02-17-2027 Tetanus vaccination Tetanus: Every 1 0yrs [facility] Start: 05-14-2025 End: 05-14-2025 Patient encounter procedure 05/14/2025 9:00 AM EDT Office Visit [facility] [address] [place] [address] Melva Grimaldo DO [address] [address] [facility] Start: 07-29-2024 End: 07-29-2024 Patient encounter procedure 07/29/2024 11:15 AM EDT Office Visit [facility] [address] [place] [address] Haily Shepard MD [address] [place] [address] Arrived [facility] Comment on above: Arrived Start: 06-22-2024 Influenza vaccination Influenza Vacc ine (#1) [facility] Start: 2024 Pneumococcal Vaccine : 65+ Years (1 of 1 - PCV) Pneumococcal Vaccine: 65+ Years (1 of 1 - PCV) [facility] Start: 06-22-2020 Influenza vaccinatio n given [facility] Start: 06-14-2020 End: 06-14-2020 Office Visit 06/14/2020 Office Visit Orthopedic Surgery Exten, Carlos Gerber MD [address] [place] [address] [phone] [facility] Start: 06-02-2020 End: 06-02-2020 Office Visit 06/02/2020 Office Visit Otolaryngology Javier Fischer MD [address] [place] [address] [phone] [facility] Start: 04-20-2020 End: 04-20-2020 Office Visit 04/20/2020 Office Visit Otolaryngology Surgical Orderly, Jaspreet Diaz CNP [address] [place] [address] [phone] [facility] Start: 09-04-2019 End: 09-04-2019 Office Visit 09/04/2019 Office Visit Orthopedic Surgery Exten, Carlos Gerber MD [address] [place] [address] [phone] [facility] Start: 06-22-2019 Influenza vaccinatio n given [facility] Start: 06-22-2018 Influenza vaccinatio n given SEQUENTIAL INFLUENZA VACCINE (#1) [facility] Start: 2009 Administration of he rpes zoster vaccine Zoster Vaccines (1 of 2) [facility] Start: 2009 Screening for malign ant neoplasm of colon [facility] Start: 1999 Screening for malign ant neoplasm of breast Mammogram [facility] Start: 1989 Screening for malign ant neoplasm of cervix [facility] Start: 1980 Screening for malign ant neoplasm of cervix Pap Smear [facility] Start: 1977 Hepatitis C antibody , confirmatory test Hepatitis C Screening [facility] Start: 1975 COVID-19 Vaccine (1 of 2) COVID-19 Vaccine (1 of 2) [facility] Start: 1974 HIV screening HIV Screening [facility] Start: 1971 Adolescent depressio n screening assessment Depression Screening (PHQ9) [facility] Start: 1962 History and physical examination, annual for health maintenance Wellness Visit [facility] Start: 1959 Hepatitis C antibody , confirmatory test HEPATITIS C SCREENING [facility] Start: 1959 Protein mass conc Mammogram [facility] Start: 1959 Screening for malign ant neoplasm of cervix PAP SMEAR [facility] Start: 1959 Screening for malign ant neoplasm of colon [facility] Start: 1959 Screening mammography [facility] Start: 1959 Tetanus vaccination TETANUS EVERY 10 YR [facility] End: 04-20-[address] Sinus Imaging Routine Recurrent sinusitis 1 Occurrences starting 04/20/2020 until 04/20/2021 [facility] Comment on above: 1 Occurrences starti ng 04/20/2020 until 04/20/2021 End: 07-13-2020 Epidural steroid injection VR Epidural Steroid Inj Imaging Routine Charcot's joint of left foot Once for 1 Occurrences starting 07/13/2020 until 07/13/2020 [facility] Comment on above: Once for 1 Occurrenc es starting 07/13/2020 until 07/13/2020 Epidural steroid injection VR Epidural Steroid Inj Imaging Routine Charcot's joint of left foot 07/15/2020 1:42 PM EDT [facility] End: 02-05-2019 X-ray of left foot XR Foot Left 3+ Views (Standard) Routine Pain Once for 1 Occurrences starting 02/05/2019 until 02/05/2019 [facility] Comment on above: Once for 1 Occurrenc es starting 02/05/2019 until 02/05/2019 X-ray of left foot XR Foot Left 3+ Views (Standard) Routine Pain 02/05/2019 2:30 PM EDT [facility] End: 02-05-2019 XR Ankle Left 2 Views XR Ankle Left 2 Views Routine Pain Once for 1 Occurrences starting 02/05/2019 until 02/05/2019 [facility] Comment on above: Once for 1 Occurrenc es starting 02/05/2019 until 02/05/2019 XR Ankle Left 2 Views XR Ankle L eft 2 Views Routine Pain 02/05/2019 2:24 PM EDT [facility] Immunizations Immunization Date Immunization Notes Care Provider Fa [facility] 10-06-2023 influenza virus vaccine, unspecified formulation Mara BEVERLY [facility] 09-21-2023 influenza virus vaccine, unspecified formulation Mara BEVERLY [facility] 06-28-2023 zoster vaccine recombinant Mara BEVERLY [facility] 03-27-2023 zoster vaccine recombinant Mara [employer] [facility] 09-18-2022 COVID-19, mRNA, LNP-S, bivalent, PF, 50 mcg/0.5 mL dose Robyn Hernandez [facility] 09-18-2022 influenza, injectable, quadrivalent, preservative free Robyn Hernandez [facility] [place] 09-20-2021 COVID-19, mRNA, LNP-S, PF, 100 mcg or 50 mcg dose SALOME EDMONDS [facility] 08-19-2021 influenza virus vaccine, unspecified formulation; Translations: [Fluzone PF Quadrivalent ] SALOME EDMONDS [facility] Comment on above: Reason for Medicatio n: Prophylaxis 01-21-2021 COVID-19, mRNA, LNP-S, PF, 30 mcg/0.3 mL dose; Translations: [Pfizer-BioNTech COVID-19 Vaccine] SALOME EDMONDS [facility] Comment on above: Reason for Medicatio n: Prophylaxis 12-24-2020 COVID-19, mRNA, LNP-S, PF, 30 mcg/0.3 mL dose; Translations: [Pfizer-BioNTech COVID-19 Vaccine] SALOME EDMONDS [facility] Comment on above: Reason for Medicatio n: Prophylaxis 08-30-2020 influenza virus vaccine, unspecified formulation SALOME EDMONDS [facility] 08-04-2020 influenza virus vaccine, unspecified formulation Kim DASHAWN [facility] 09-01-2019 influenza virus vaccine, live, attenuated, for intranasal use SALOME EDMONDS [facility] 09-02-2018 influenza virus vaccine, unspecified formulation SALOME EDMONDS [facility] 02-17-2017 tetanus toxoid, reduced diphtheria toxoid, and acellular pertussis vaccine, adsorbed; Translations: [Adacel (Tdap)] SALOME EDMONDS [facility] NEGATED: Highlighted row has not occurred!08-19-2024 influenza virus vaccine, unspecified formulation Mara BEVERLY [facility] [place] NEGATED: Highlighted row has not occurred!08-20-2020 influenza virus vaccine, unspecified formulation SALOME EDMONDS [facility] Payers Date Payer Category Payer Self-pay 2023 Unknown [employer] [id number] 2023-Present [address] [place] [id number] 2023 Medicare [id number] 2019 Unknown [employer] PPO xxxxxxxxxxxx 2019-Present xxxxxxxxxxxx [id number] 2019 Unknown [employer] PPO [id number] 2019-Present [id number] .[id number] 2019 Unknown [id number] 2008 Unknown xxxxxxxxxx [id number] .[id number] 2008 Unknown [id number] 1959 Self-pay [id number] 1959 Unknown [id number] 2.16.840.1.821874.3.579.2 .900 1959 Unknown [id number] 2.16.840.1.795217.3.579.2 .900 1959 Unknown [id number] 2.16.840.1.282114.3.579.2 .903 1959 Unknown [id number] 2.16.840.1.006776.3.579.2 .90 1959 Unknown [id number] 2.16.840.1.338232.3.579.2 .1959 Unknown [id number] 2.16.840.1.348377.3.579.2 .1959 Unknown [id number] 2.16.840.1.128796.3.579.2 .1959 Unknown [id number] 2.16.840.1.705738.3.579.2 .1959 Unknown [id number] 2.16.840.1.576691.3.579.2 .1959 Unknown [id number] 2.16.840.1.170690.3.579.2 .1959 Unknown [id number] 2.16.840.1.875596.3.579.2 .1959 Unknown [id number] 2.16840.1.544623.3.579.2 .1959 Unknown [id number] 2.16.840.1.805533.3.579.2 .1959 Unknown [id number] 2.16.840.1.548330.3.579.2 .1959 Unknown [id number] 2.16.840.1.442566.3.579.2 .1959 Unknown [id number] 2.16.840.1.385056.3.579.2 .1959 Unknown [id number] 2.16.840.1.872692.3.579.2 .1959 Unknown [id number] 2.16.840.1.167729.3.579.2 .1959 Unknown [id number] 2.16.840.1.530077.3.579.2 .593 1959 Unknown [id number] 2.16.840.1.946201.3.579.2 .727 1959 Unknown [id number] 2.16.840.1.531768.3.579.2 .1959 Unknown [id number] 2.16.840.1.428356.3.579.2 .1959 Unknown [id number] 2.16.840.1.575279.3.579.2 .1258 1959 Unknown [id number] 2.16.840.1.280820.3.579.2 .1258 1959 Unknown [id number] 2.16.840.1.240312.3.579.2 .1258 1959 Unknown [id number] 2.16.840.1.508060.3.579.2 .1258 1959 Unknown [id number] 2.16.840.1.689856.3.579.2 .1258 1959 Unknown [id number] 2.16.840.1.350841.3.579.2 .1258 1959 Unknown [id number] 2.16.840.1.707068.3.579.2 .1258 1959 Unknown [id number] 2.16.840.1.780304.3.579.2 .1258 1959 Unknown [id number] 2.16.840.1.576624.3.579.2 .1258 1959 Unknown [id number] 2.16.840.1.764501.3.579.2 .1258 1959 Unknown [id number] 2.16.840.1.244099.3.579.2 .1258 1959 Unknown [id number] 2.16.840.1.411987.3.579.2 .1258 1959 Unknown [id number] 2.16.840.1.896810.3.579.2 .1258 1959 Unknown [id number] 2.16.840.1.562415.3.579.2 .1258 1959 Unknown [id number] [id number] .1258 1960 Unknown [id number] 2.16.840.1.351616.3.579.2 .1258 1960 Unknown [id number] 2.16.840.1.520215.3.579.2 .1258 1959 Unknown [id number] 2.16.840.1.247135.3.579.2 .1258 1959 Unknown [id number] 2.16.840.1.713631.3.579.2 .1258 1959 Unknown [id number] 2.16.840.1.054459.3.579.2 .1258 1959 Unknown [id number] 2.16.840.1.972384.3.579.2 .1959 Unknown [id number] 2.16.840.1.002467.3.579.2 .1959 Unknown [id number] 2.16.840.1.075608.3.579.2 .1959 Unknown [id number] 2.16.840.1.237957.3.579.2 .1959 Unknown [id number] 2.16.840.1.378454.3.579.2 .1959 Unknown [id number] 2.16.840.1.200768.3.579.2 .1959 Unknown [id number] 2.16.840.1.906301.3.579.2 .1959 Unknown [id number] 2.16.840.1.551705.3.579.2 .1959 Unknown [id number] 2.16.840.1.611606.3.579.2 .727 1959 Unknown [id number] 2.16.840.1.660909.3.579.2 .727 1959 Unknown [id number] 2.16.840.1.190212.3.579.2 .727 1959 Unknown [id number] 2.16.840.1.249213.3.579.2 .727 1959 Unknown [id number] 2.16.840.1.095096.3.579.2 .727 Private Health Insurance [employer] [id number] Unknown [id number] Social History Date Type Detail Facility Start: 02-05-2019 End: 08-19-2024 Tobacco smoking status FLIS Never smoker [facility] Comment on above: Denies use. Start: 02-05-2019 History SDOH Alcohol Frequency 1 [facility] Sex Assigned At Not on file [facility] Start: 2020 End: 04-20-2020 Alcohol intake Lifetime non-drinker (finding) [facility] Exposure to SARS-CoV -2 (event) Not sure [facility] Start: 06-14-2020 End: 04-06-2023 Tobacco use and exposure Never used [facility] Tobacco smoking status Never [facility] Comment on above: Denies use. Start: 07-10-2024 Sex Assigned At Female F [facility] Start: 07-10-2024 End: 07-29-2024 Alcoholic beverage intake Ex-drinker (finding) [facility] Start: 07-10-2024 History of Social function [facility] Start: 06-12-2023 Alcohol Comment Haven't drank measureable amount since I was in 89 [facility] Start: 1960 Sex assigned at Female N [facility] Start: 03-11-2023 Gender identity Identifies as female gender (finding) [facility] Start: 03-11-2023 Sexual orientation Heterosexual (fin ding) [facility] Tobacco smoking stat [facility] Unknown if ever smoked [facility] Work Phone: Start: 09-04-2024 Sex Female (finding) [facility] Medical Equipment Procedure Code Equipment Code Equipment Origin al Text Equipment Identifier Dates [id number] FDA Start: 07-05-2020 KNEE TOTAL ARTHROPLASTY Melva Grimaldo DO 04/02/23 Non Biological Knee L [id number]{ [id number] FDA Start: 04-02-2023 KNEE TOTAL ARTHROPLASTY REVISION Melva Grimaldo DO 05/16/23 Biological Knee L {[id number]{ [id number] {[id number]{[id number] FDA Start: 05-16-2023 Goals Date Patient Goal Desired Activity /State Personal health goal Functional Status Date Assessment Result Facility 08-19-2024 Functional Status N/A [facility] 08-19-2024 Functional Status [facility] 05-12-2024 Functional Status N/A [facility] 04-08-2024 Functional Status N/A [facility] 03-24-2024 Functional Status N/A [facility] 03-21-2024 Functional Status N/A [facility] 03-10-2024 Functional Status N/A [facility] 12-10-2023 Functional Status N/A [facility] 10-17-2023 Functional Status N/A [facility] 05-16-2023 Functional Status N/A [facility] 05-15-2023 Functional Status No [facility] 03-23-2023 Functional Status N/A [facility] 01-19-2023 Functional Status N/A [facility] 08-22-2022 Functional Status N/A [facility] 08-12-2022 Functional Status N/A [facility] 06-28-2022 Functional Status N/A [facility] 05-18-2022 Functional Status N/A Sandip Hernández [facility] 04-25-2022 Functional Status N/A [facility] Clinical Notes 03-13-2022 to 08-19-2024 Haily Shepard MD - 07/29/2024 11:15 AM EDT Note Date & Type Note Facility 08-19-2024 Hospital Discharge instructions Patient Education 08/19/2024 15:50:58 Heartburn Heartburn Heartburn is a type of pain or discomfort that can happen in the throat or chest. It is often described as a burning pain. It may also cause a bad, acid-like taste in the mouth. Heartburn may feel worse when you lie down or bend over, and it is often worse at night. Heartburn may be caused by stomach contents that move back up into the esophagus (reflux). Follow these instructions at home: Eating and drinking Avoid certain foods and drinks as told by your health care provider. This may include: ?Coffee and tea, with or without caffeine. ?Drinks that contain alcohol. ?Energy drinks and sports drinks. ?Carbonated drinks or sodas. ?Chocolate and cocoa. ?Peppermint and mint flavorings. ?Garlic and onions. ?Horseradish. ?Spicy and acidic foods, including peppers, chili powder, preston powder, vinegar, hot sauces, and barbecue sauce. ?[place]des fruit juices and citrus fruits, such as oranges, portia, and limes. ?Tomato-based foods, such as red sauce, chili, salsa, and pizza with red sauce. ?Fried and fatty foods, such as donuts, barbadian fries, potato chips, and high-fat dressings. ?High-fat meats, such as hot dogs and fatty cuts of red and white meats, such as rib eye steak, sausage, ham, and amaral. ?High-fat dairy items, such as whole milk, butter, and cream cheese. Eat small, frequent meals instead of large meals. Avoid drinking large amounts of liquid with your meals. Avoid eating meals during the 2 3 hours before bedtime. Avoid lying down right after you eat. Do not exercise right after you eat. Lifestyle If you are overweight, reduce your weight to an amount that is healthy for you. Ask your health care provider for guidance about a safe weight loss goal. Do not use any products that contain nicotine or tobacco. These products include cigarettes, chewing tobacco, and vaping devices, such as e-cigarettes. These can make symptoms worse. If you need help quitting, ask your health care provider. Wear loose-fitting clothing. Do not wear anything tight around your waist that causes pressure on your abdomen. Raise (elevate) the head of your bed about 6 inches (15 cm) when you sleep. You can use a wedge to do this. Try to reduce your stress, such as with yoga or meditation. If you need help reducing stress, ask your health care provider. Medicines Take jeif-wbx-caysxln and prescription medicines only as told by your health care provider. Do not take aspirin or NSAIDs, such as ibuprofen, unless your health care provider told you to do so. Stop medicines only as told by your health care provider. If you stop taking some medicines too quickly, your symptoms may get worse. General instructions Pay attention to any changes in your symptoms. Keep all follow-up visits. This is important. Contact a health care provider if: You have new symptoms. You have unexplained weight loss. You have difficulty swallowing, or it hurts to swallow. You have wheezing or a persistent cough. Your symptoms do not improve with treatment. You have frequent heartburn for more than 2 weeks. Get help right away if: You suddenly have pain in your arms, neck, jaw, teeth, or back. You suddenly feel sweaty, dizzy, or light-headed. You have chest pain or shortness of breath. You vomit and your vomit looks like blood or coffee grounds. Your stool is bloody or black. These symptoms may represent a serious problem that is an emergency. Do not wait to see if the symptoms will go away. Get medical help right away. Call your local emergency services (911 in the [place] Do not drive yourself to the hospital. Summary Heartburn is a type of pain or discomfort that can happen in the throat or chest. It is often described as a burning pain. It may also cause a bad, acid-like taste in the mouth. Avoid certain foods and drinks as told by your health care provider. Take veht-jhv-leotfgd and prescription medicines only as told by your health care provider. Do not take aspirin or NSAIDs, such as ibuprofen, unless your health care provider told you to do so. Contact a health care provider if your symptoms do not improve or they get worse. This information is not intended to replace advice given to you by your health care provider. Make sure you discuss any questions you have with your health care provider. Document Revised: 04/13/2021 Document Reviewed: 04/13/2021 [employer] Patient Education 2023 [email or web address] 08/19/2024 15:50:54 Chronic Kidney Disease, Adult Chronic Kidney Disease, Adult Chronic kidney disease (CKD) occurs when the kidneys are slowly and permanently damaged over a long period of time. The kidneys are a pair of organs that do many important jobs in the body, including: Removing waste and extra fluid from the blood to make urine. Making hormones that maintain the amount of fluid in tissues and blood vessels. Maintaining the right amount of fluids and chemicals in the body. A small amount of kidney damage may not cause problems, but a large amount of damage may make it hard or impossible for the kidneys to work right. Steps must be taken to slow kidney damage or to stop it from getting worse. If steps are not taken, the kidneys may stop working permanently (end-stage renal disease, or ESRD). Most of the time, CKD does not go away, but it can often be controlled. People who have CKD are usually able to live full lives. What are the causes? The most common causes of this condition are diabetes and high blood pressure (hypertension). Other causes include: Cardiovascular diseases. These affect the heart and blood vessels. Kidney diseases. These include: ?Glomerulonephritis, or inflammation of the tiny filters in the kidneys. ?Interstitial nephritis. This is swelling of the small tubes of the kidneys and of the surrounding structures. ?Polycystic kidney disease, in which clusters of fluid-filled sacs form within the kidneys. ?Renal vascular disease. This includes disorders that affect the arteries and veins of the kidneys. Diseases that affect the body's defense system (immune system). A problem with urine flow. This may be caused by: ?Kidney stones. ?Cancer. ?An enlarged prostate, in males. A kidney infection or urinary tract infection (UTI) that keeps coming back. Vasculitis. This is swelling or inflammation of the blood vessels. What increases the risk? Your chances of having kidney disease increase with age. The following factors may make you more likely to develop this condition: A family history of kidney disease or kidney failure. Kidney failure means the kidneys can no longer work right. Certain genetic diseases. Taking medicines often that are damaging to the kidneys. Being around or being in contact with toxic substances. Obesity. A history of tobacco use. What are the signs or symptoms? Symptoms of this condition include: Feeling very tired (lethargic) and having less energy. Swelling, or edema, of the face, legs, ankles, or feet. Nausea or vomiting, or loss of appetite. Confusion or trouble concentrating. Muscle twitches and cramps, especially in the legs. Dry, itchy skin. A metallic taste in the mouth. Producing less urine, or producing more urine (especially at night). Shortness of breath. Trouble sleeping. CKD may also result in not having enough red blood cells or hemoglobin in the blood (anemia) or having weak bones (bone disease). Symptoms develop slowly and may not be obvious until the kidney damage becomes severe. It is possible to have kidney disease for years without having symptoms. How is this diagnosed? This condition may be diagnosed based on: Blood tests. Urine tests. Imaging tests, such as an ultrasound or a CT scan. A kidney biopsy. This involves removing a sample of kidney tissue to be looked at under a microscope. Results from these tests will help to determine how serious the CKD is. How is this treated? There is no cure for most cases of this condition, but treatment usually relieves symptoms and prevents or slows the worsening of the disease. Treatment may include: Diet changes, which may require you to avoid alcohol and foods that are high in salt, potassium, phosphorous, and protein. Medicines. These may: ?Lower blood pressure. ?Control blood sugar (glucose). ?Relieve anemia. ?Relieve swelling. ?Protect your bones. ?Improve the balance of salts and minerals in your blood (electrolytes). Dialysis, which is a type of treatment that removes toxic waste from the body. It may be needed if you have kidney failure. Managing any other conditions that are causing your CKD or making it worse. Follow these instructions at home: Medicines Take uwvt-alb-rlttlcx and prescription medicines only as told by your health care provider. The amount of some medicines that you take may need to be changed. Do not take any new medicines unless approved by your health care provider. Many medicines can make kidney damage worse. Do not take any vitamin and mineral supplements unless approved by your health care provider. Many nutritional supplements can make kidney damage worse. Lifestyle Do not use any products that contain nicotine or tobacco, such as cigarettes, e-cigarettes, and chewing tobacco. If you need help quitting, ask your health care provider. If you drink alcohol: ?Limit how much you use to: ?0 1 drink a day for women who are not . ?0 2 drinks a day for men. ?Know how much alcohol is in your drink. In the [place] one drink equals one 12 oz bottle of beer (355 mL), one 5 oz glass of wine (148 mL), or one 1 oz glass of hard liquor (44 mL). Maintain a healthy weight. If you need help, ask your health care provider. General instructions Follow instructions from your health care provider about eating or drinking restrictions, including any prescribed diet. Track your blood pressure at home. Report changes in your blood pressure as told. If you are being treated for diabetes, track your blood glucose levels as told. Start or continue an exercise plan. Exercise at least 30 minutes a day, 5 days a week. Keep your immunizations up to date as told. Keep all follow-up visits. This is important. Where to find more information [place] [employer]: www.aakp.org National Kidney Foundation: www.kidney.org [employer]: www.akfinc.org Life Options: www.lifeoptions.org Kidney [employer]: www.kidneyschool.org Contact a health care provider if: Your symptoms get worse. You develop new symptoms. Get help right away if: You develop symptoms of ESRD. These include: ?Headaches. ?Numbness in your hands or feet. ?Easy bruising. ?Frequent hiccups. ?Chest pain. ?Shortness of breath. ?Lack of menstrual periods, in women. You have a fever. You are producing less urine than usual. You have pain or bleeding when you urinate or when you have a bowel movement. These symptoms may represent a serious problem that is an emergency. Do not wait to see if the symptoms will go away. Get medical help right away. Call your local emergency services (911 in the [place] Do not drive yourself to the hospital. Summary Chronic kidney disease (CKD) occurs when the kidneys become damaged slowly over a long period of time. The most common causes of this condition are diabetes and high blood pressure (hypertension). There is no cure for most cases of CKD, but treatment usually relieves symptoms and prevents or slows the worsening of the disease. Treatment may include a combination of lifestyle changes, medicines, and dialysis. This information is not intended to replace advice given to you by your health care provider. Make sure you discuss any questions you have with your health care provider. Document Revised: 01/12/2021 Document Reviewed: 01/12/2021 [employer] Patient Education 2023 [email or web address] 08/19/2024 15:50:52 Hypothyroidism Hypothyroidism Hypothyroidism is when the thyroid gland does not make enough of certain hormones. This is called an underactive thyroid. The thyroid gland is a small gland located in the lower front part of the neck, just in front of the windpipe (trachea). This gland makes hormones that help control how the body uses food for energy (metabolism) as well as how the heart and brain function. These hormones also play a role in keeping your bones strong. When the thyroid is underactive, it produces too little of the hormones thyroxine (T4) and triiodothyronine (T3). What are the causes? This condition may be caused by: Gia's disease. This is a disease in which the body's disease-fighting system (immune system) attacks the thyroid gland. This is the most common cause. Viral infections. . Certain medicines. defects. Problems with a gland in the center of the brain (pituitary gland). Lack of enough iodine in the diet. Other causes may include: Past radiation treatments to the head or neck for cancer. Past treatment with radioactive iodine. Past exposure to radiation in the environment. Past surgical removal of part or all of the thyroid. What increases the risk? You are more likely to develop this condition if: You are female. You have a family history of thyroid conditions. You use a medicine called lithium. You take medicines that affect the immune system (immunosuppressants). What are the signs or symptoms? Common symptoms of this condition include: Not being able to tolerate cold. Feeling as though you have no energy (lethargy). Lack of appetite. Constipation. Sadness or depression. Weight gain that is not explained by a change in diet or exercise habits. Menstrual irregularity. Dry skin, coarse hair, or brittle nails. Other symptoms may include: Muscle pain. Slowing of thought processes. Poor memory. How is this diagnosed? This condition may be diagnosed based on: Your symptoms, your medical history, and a physical exam. Blood tests. You may also have imaging tests, such as an ultrasound or MRI. How is this treated? This condition is treated with medicine that replaces the thyroid hormones that your body does not make. After you begin treatment, it may take several weeks for symptoms to go away. Follow these instructions at home: Take yslx-uex-lppdxhv and prescription medicines only as told by your health care provider. If you start taking any new medicines, tell your health care provider. Keep all follow-up visits as told by your health care provider. This is important. ?As your condition improves, your dosage of thyroid hormone medicine may change. ?You will need to have blood tests regularly so that your health care provider can monitor your condition. Contact a health care provider if: Your symptoms do not get better with treatment. You are taking thyroid hormone replacement medicine and you: ?Sweat a lot. ?Have tremors. ?Feel anxious. ?Lose weight rapidly. ?Cannot tolerate heat. ?Have emotional swings. ?Have diarrhea. ?Feel weak. Get help right away if: You have chest pain. You have an irregular heartbeat. You have a rapid heartbeat. You have difficulty breathing. These symptoms may be an emergency. Get help right away. Call 911. Do not wait to see if the symptoms will go away. Do not drive yourself to the hospital. Summary Hypothyroidism is when the thyroid gland does not make enough of certain hormones (it is underactive). When the thyroid is underactive, it produces too little of the hormones thyroxine (T4) and triiodothyronine (T3). The most common cause is Gia's disease, a disease in which the body's disease-fighting system (immune system) attacks the thyroid gland. The condition can also be caused by viral infections, medicine, , or past radiation treatment to the head or neck. Symptoms may include weight gain, dry skin, constipation, feeling as though you do not have energy, and not being able to tolerate cold. This condition is treated with medicine to replace the thyroid hormones that your body does not make. This information is not intended to replace advice given to you by your health care provider. Make sure you discuss any questions you have with your health care provider. Document Revised: 10/10/2022 Document Reviewed: 10/10/2022 [employer] Patient Education 2023 [email or web address] 08/19/2024 15:50:49 DASH Eating Plan DASH Eating Plan DASH stands for Dietary Approaches to Stop Hypertension. The DASH eating plan is a healthy eating plan that has been shown to: Lower high blood pressure (hypertension). Reduce your risk for type 2 diabetes, heart disease, and stroke. Help with weight loss. What are tips for following this plan? Reading food labels Check food labels for the amount of salt (sodium) per serving. Choose foods with less than 5 percent of the Daily Value (DV) of sodium. In general, foods with less than 300 milligrams (mg) of sodium per serving fit into this eating plan. To find whole grains, look for the word whole as the first word in the ingredient list. Shopping Buy products labeled as low-sodium or no salt added. Buy fresh foods. Avoid canned foods and pre-made or frozen meals. Cooking Try not to add salt when you cook. Use salt-free seasonings or herbs instead of table salt or sea salt. Check with your health care provider or pharmacist before using salt substitutes. Do not jennings foods. Cook foods in healthy ways, such as baking, boiling, grilling, roasting, or broiling. Cook using oils that are good for your heart. These include olive, canola, avocado, soybean, and sunflower oil. Meal planning Eat a balanced diet. This should include: ?4 or more servings of fruits and 4 or more servings of vegetables each day. Try to fill half of your plate with fruits and vegetables. ?6 8 servings of whole grains each day. ?6 or less servings of lean meat, poultry, or fish each day. 1 oz is 1 serving. A 3 oz (85 g) serving of meat is about the same size as the palm of your hand. One egg is 1 oz (28 g). ?2 3 servings [...] is high in trans fat, such as fried foods. ?Food that is high in [...] Lifestyle When eating at a restaurant, ask if your food can be made with less salt or no salt. If you drink alcohol: ?Limit how much you have to: ?0 1 drink a day if you are female. ?0 2 drinks a day if you are male. ?Know how much alcohol is in your drink. In the [place] one drink is one 12 oz bottle of beer (355 mL), one 5 oz glass of wine (148 mL), or one 1 oz glass of hard liquor (44 mL). General information Avoid eating more than 2,300 mg of salt a day. If you have hypertension, you may need to reduce your sodium intake to 1,500 mg a day. Work with your provider to stay at a healthy body weight or lose weight. Ask what the best weight range is for you. On most days of the week, get at least 30 minutes of exercise that causes your heart to beat faster. This may include walking, swimming, or biking. Work with your provider or dietitian to adjust your eating plan to meet your specific calorie needs. What foods should I eat? Fruits All fresh, dried, or frozen fruit. Canned fruits that are in their natural juice and do not have sugar added to them. Vegetables Fresh or frozen vegetables that are raw, steamed, roasted, or grilled. Low-sodium or reduced-sodium tomato and vegetable juice. [...] The items listed above may not be all the foods and drinks you can have. Talk to a dietitian to learn more. What foods should I avoid? Fruits Canned fruit in a light or heavy syrup. Fried fruit. Fruit in cream or butter sauce. Vegetables Creamed or fried vegetables. Vegetables in a cheese sauce. Regular canned vegetables that are not marked as low-sodium or reduced-sodium. Regular canned tomato sauce and paste that are not marked as low-sodium or reduced-sodium. Regular tomato and vegetable juices that are not marked as low-sodium or reduced-sodium. Pickles. Olives. Grains Baked goods made with fat, such as croissants, muffins, or some breads. Dry pasta or rice meal packs. Meats and other proteins Fatty cuts of meat. Ribs. Fried meat. Amaral. Bologna, salami, and other precooked or cured meats, such as sausages or meat loaves, that are not lean and low in sodium. Fat from the back of a pig (fatback). Bratwurst. Salted nuts and seeds. Canned beans with added salt. Canned or smoked fish. Whole eggs or egg yolks. Chicken or turkey with skin. Dairy Whole or 2% milk, cream, and xztp-rjy-cueo. Whole or full-fat cream cheese. Whole-fat or sweetened yogurt. Full-fat cheese. Nondairy creamers. Whipped toppings. Processed cheese and cheese spreads. Fats and oils Butter. Stick margarine. Lard. Shortening. Ghee. Amaral fat. Tropical oils, such as coconut, palm kernel, or palm oil. Seasonings and condiments Onion salt, garlic salt, seasoned salt, table salt, and sea salt. Worcestershire sauce. Tartar sauce. Barbecue sauce. Teriyaki sauce. Soy sauce, including reduced-sodium soy sauce. Steak sauce. Canned and packaged gravies. Fish sauce. Oyster sauce. Cocktail sauce. Store-bought horseradish. Ketchup. Mustard. Meat flavorings and tenderizers. Bouillon cubes. Hot sauces. Pre-made or packaged marinades. Pre-made or packaged taco seasonings. Relishes. Regular salad dressings. Other foods Salted popcorn and pretzels. The items listed above may not be all the foods and drinks you should avoid. Talk to a dietitian to learn more. Where to find more information National Heart, Lung, and Blood [place] (NHLBI): nhlbi.nih.gov [place] [employer] Association (AHA): heart.org Academy of Nutrition and Dietetics: eatright.org National Kidney Foundation (NKF): kidney.org This information is not intended to replace advice given to you by your health care provider. Make sure you discuss any questions you have with your health care provider. Document Revised: 10/25/2023 Document Reviewed: 10/25/2023 [employer] Patient Education 2023 [email or web address]. 08/19/2024 15:50:26 Dyslipidemia Dyslipidemia Dyslipidemia is an imbalance of waxy, fat-like substances (lipids) in the blood. The body needs lipids in small amounts. Dyslipidemia often involves a high level of cholesterol or triglycerides, which are types of lipids. Common forms of dyslipidemia include: High levels of LDL cholesterol. LDL is the type of cholesterol that causes fatty deposits (plaques) to build up in the blood vessels that carry blood away from the heart (arteries). Low levels of HDL cholesterol. HDL cholesterol is the type of cholesterol that protects against heart disease. High levels of HDL remove the LDL buildup from arteries. High levels of triglycerides. Triglycerides are a fatty substance in the blood that is linked to a buildup of plaques in the arteries. What are the causes? There are two main types of dyslipidemia: primary and secondary. Primary dyslipidemia is caused by changes (mutations) in genes that are passed down through families (inherited). These mutations cause several types of dyslipidemia. Secondary dyslipidemia may be caused by various risk factors that can lead to the disease, such as lifestyle choices and certain medical conditions. What increases the risk? You are more likely to develop this condition if you are an older man or if you are a woman who has gone through menopause. Other risk factors include: Having a family history of dyslipidemia. Taking certain medicines, including control pills, steroids, some diuretics, and beta-blockers. Eating a diet high in saturated fat. Smoking cigarettes or excessive alcohol intake. Having certain medical conditions such as diabetes, polycystic ovary syndrome (PCOS), kidney disease, liver disease, or hypothyroidism. Not exercising regularly. Being overweight or obese with too much belly fat. What are the signs or symptoms? In most cases, dyslipidemia does not usually cause any symptoms. In severe cases, very high lipid levels can cause: Fatty bumps under the skin (xanthomas). A white or drake ring around the black center (pupil) of the eye. Very high triglyceride levels can cause inflammation of the pancreas (pancreatitis). How is this diagnosed? Your health care provider may diagnose dyslipidemia based on a routine blood test (fasting blood test). Because most people do not have symptoms of the condition, this blood testing (lipid profile) is done on adults age 20 and older and is repeated every 4-6 years. This test checks: Total cholesterol. This measures the total amount of cholesterol in your blood, including LDL cholesterol, HDL cholesterol, and triglycerides. A healthy number is below 200 mg/dL (5.17 mmol/L). LDL cholesterol. The target number for LDL cholesterol is different for each person, depending on individual risk factors. A healthy number is usually below 100 mg/dL (2.59 mmol/L). Ask your health care provider what your LDL cholesterol should be. HDL cholesterol. An HDL level of 60 mg/dL (1.55 mmol/L) or higher is best because it helps to protect against heart disease. A number below 40 mg/dL (1.03 mmol/L) for men or below 50 mg/dL (1.29 mmol/L) for women increases the risk for heart disease. Triglycerides. A healthy triglyceride number is below 150 mg/dL (1.69 mmol/L). If your lipid profile is abnormal, your health care provider may do other blood tests. How is this treated? Treatment depends on the type of dyslipidemia that you have and your other risk factors for heart disease and stroke. Your health care provider will have a target range for your lipid levels based on this information. Treatment for dyslipidemia starts with lifestyle changes, such as diet and exercise. Your health care provider may recommend that you: Get regular exercise. Make changes to your diet. Quit smoking if you smoke. Limit your alcohol intake. If diet changes and exercise do not help you reach your goals, your health care provider may also prescribe medicine to lower lipids. The most commonly prescribed type of medicine lowers your LDL cholesterol (statin drug). If you have a high triglyceride level, your provider may prescribe another type of drug (fibrate) or an omega-3 fish oil supplement, or both. Follow these instructions at home: Eating and drinking Follow instructions from your health care provider or dietitian about eating or drinking restrictions. Eat a healthy diet as told by your health care provider. This can help you reach and maintain a healthy weight, lower your LDL cholesterol, and raise your HDL cholesterol. This may include: ?Limiting your calories, if you are overweight. ?Eating more fruits, vegetables, whole grains, fish, and lean meats. ?Limiting saturated fat, trans fat, and cholesterol. Do not drink alcohol if: ?Your health care provider tells you not to drink. ?You are , may be , or are planning to become . If you drink alcohol: ?Limit how much you have to: ?0 1 drink a day for women. ? 0 2 drinks a day for men. ?Know how much alcohol is in your drink. In the [place] one drink equals one 12 oz bottle of beer (355 mL), one 5 oz glass of wine (148 mL), or one 1 oz glass of hard liquor (44 mL). Activity Get regular exercise. Start an exercise and strength training program as told by your health care provider. Ask your health care provider what activities are safe for you. Your health care provider may recommend: ?30 minutes of aerobic activity 4 6 days a week. Brisk walking is an example of aerobic activity. ?Strength training 2 days a week. General instructions Do not use any products that contain nicotine or tobacco. These products include cigarettes, chewing tobacco, and vaping devices, such as e-cigarettes. If you need help quitting, ask your health care provider. Take utau-nry-dezsqrv and prescription medicines only as told by your health care provider. This includes supplements. Keep all follow-up visits. This is important. Contact a health care provider if: You are having trouble sticking to your exercise or diet plan. You are struggling to quit smoking or to control your use of alcohol. Summary Dyslipidemia often involves a high level of cholesterol or triglycerides, which are types of lipids. Treatment depends on the type of dyslipidemia that you have and your other risk factors for heart disease and stroke. Treatment for dyslipidemia starts with lifestyle changes, such as diet and exercise. Your health care provider may prescribe medicine to lower lipids. This information is not intended to replace advice given to you by your health care provider. Make sure you discuss any questions you have with your health care provider. Document Revised: 05/11/2023 Document Reviewed: 12/12/2021 [employer] Patient Education 2023 [email or web address]. 08/19/2024 15:50:16 Diabetes Mellitus and Foot Care Diabetes Mellitus and Foot Care Diabetes, also called diabetes mellitus, may cause problems with your feet and legs because of poor blood flow (circulation). Poor circulation may make your skin: Become thinner and stretcher and drier. Break more easily. Heal more slowly. Peel and crack. You may also have nerve damage (neuropathy). This can cause decreased feeling in your legs and feet. This means that you may not notice minor injuries to your feet that could lead to more serious problems. Finding and treating problems early is the best way to prevent future foot problems. How to care for your feet Foot hygiene Wash your feet daily with warm water and mild soap. Do not use hot water. Then, pat your feet and the areas between your toes until they are fully dry. Do not soak your feet. This can dry your skin. Trim your toenails straight across. Do not dig under them or around the cuticle. File the edges of your nails with an emery board or nail file. Apply a moisturizing lotion or petroleum jelly to the skin on your feet and to dry, brittle toenails. Use lotion that does not contain alcohol and is unscented. Do not apply lotion between your toes. Shoes and socks Wear clean socks or stockings every day. Make sure they are not too tight. Do not wear knee-high stockings. These may decrease blood flow to your legs. Wear shoes that fit well and have enough cushioning. Always look in your shoes before you put them on to be sure there are no objects inside. To break in new shoes, wear them for just a few hours a day. This prevents injuries on your feet. Wounds, scrapes, corns, and calluses Check your feet daily for blisters, cuts, bruises, sores, and redness. If you cannot see the bottom of your feet, use a mirror or ask someone for help. Do not cut off corns or calluses or try to remove them with medicine. If you find a minor scrape, cut, or break in the skin on your feet, keep it and the skin around it clean and dry. You may clean these areas with mild soap and water. Do not clean the area with peroxide, alcohol, or iodine. If you have a wound, scrape, corn, or callus on your foot, look at it several times a day to make sure it is healing and not infected. Check for: ?Redness, swelling, or pain. ?Fluid or blood. ?Warmth. ?Pus or a bad smell. General tips Do not cross your legs. This may decrease blood flow to your feet. Do not use heating pads or hot water bottles on your feet. They may burn your skin. If you have lost feeling in your feet or legs, you may not know this is happening until it is too late. Protect your feet from hot and cold by wearing shoes, such as at the beach or on hot pavement. Schedule a complete foot exam at least once a year or more often if you have foot problems. Report any cuts, sores, or bruises to your health care provider right away. Where to find more information [place] Diabetes Association: diabetes.org Association of Diabetes Care & Education Specialists: diabeteseducator.org Contact a health care provider if: You have a condition that increases your risk of infection, and you have any cuts, sores, or bruises on your feet. You have an injury that is not healing. You have redness on your legs or feet. You feel burning or tingling in your legs or feet. You have pain or cramps in your legs and feet. Your legs or feet are numb. Your feet always feel cold. You have pain around any toenails. Get help right away if: You have a wound, scrape, corn, or callus on your foot and: ?You have signs of infection. ?You have a fever. ?You have a red line going up your leg. This information is not intended to replace advice given to you by your health care provider. Make sure you discuss any questions you have with your health care provider. Document Revised: 04/11/2023 Document Reviewed: 04/11/2023 [employer] Patient Education 2023 [email or web address]. Follow Up Care 05/12/2024 19:41:16 With:Mara BEVERLY MD, FAM Address: [address] [place], [place] [id number]- When:6 months Comments:staff call [facility] need her recent labs and EKG from 08/12/24 [facility] 08-19-2024 Note Patient Education Endocrinology Hypothyroidism Hypothyroidism is when the thyroid gland does not make enough of certain hormones. This is called an underactive thyroid. The thyroid gland is a small gland located in the lower front part of the neck, just in front of the windpipe (trachea). This gland makes hormones that help control how the body uses food for energy (metabolism) as well as how the heart and brain function. These hormones also play a role in keeping your bones strong. When the thyroid is underactive, it produces too little of the hormones thyroxine (T4) and triiodothyronine (T3). What are the causes? This condition may be caused by: ??? Gia's disease. This is a disease in which the body's disease-fighting system (immune system) attacks the thyroid gland. This is the most common cause. ??? Viral infections. ??? . ??? Certain medicines. ??? defects. ??? Problems with a gland in the center of the brain (pituitary gland). ??? Lack of enough iodine in the diet. Other causes may include: ??? Past radiation treatments to the head or neck for cancer. ??? Past treatment with radioactive iodine. ??? Past exposure to radiation in the environment. ??? Past surgical removal of part or all of the thyroid. What increases the risk? You are more likely to develop this condition if: ??? You are female. ??? You have a family history of thyroid conditions. ??? You use a medicine called lithium. ??? You take medicines that affect the immune system (immunosuppressants). What are the signs or symptoms? Common symptoms of this condition include: ??? Not being able to tolerate cold. ??? Feeling as though you have no energy (lethargy). ??? Lack of appetite. ??? Constipation. ??? Sadness or depression. ??? Weight gain that is not explained by a change in diet or exercise habits. ??? Menstrual irregularity. ??? Dry skin, coarse hair, or brittle nails. Other symptoms may include: ??? Muscle pain. ??? Slowing of thought processes. ??? Poor memory. How is this diagnosed? This condition may be diagnosed based on: ??? Your symptoms, your medical history, and a physical exam. ??? Blood tests. You may also have imaging tests, such as an ultrasound or MRI. How is this treated? This condition is treated with medicine that replaces the thyroid hormones that your body does not make. After you begin treatment, it may take several weeks for symptoms to go away. Follow these instructions at home: ??? Take uwer-hvt-ynqsoqm and prescription medicines only as told by your health care provider. ??? If you start taking any new medicines, tell your health care provider. ??? Keep all follow-up visits as told by your health care provider. This is important. ? As your condition improves, your dosage of thyroid hormone medicine may change. ? You will need to have blood tests regularly so that your health care provider can monitor your condition. Contact a health care provider if: ??? Your symptoms do not get better with treatment. ??? You are taking thyroid hormone replacement medicine and you: ? Sweat a lot. ? Have tremors. ? Feel anxious. ? Lose weight rapidly. ? Cannot tolerate heat. ? Have emotional swings. ? Have diarrhea. ? Feel weak. Get help right away if: ??? You have chest pain. ??? You have an irregular heartbeat. ??? You have a rapid heartbeat. ??? You have difficulty breathing. These symptoms may be an emergency. Get help right away. Call 911. ??? Do not wait to see if the symptoms will go away. ??? Do not drive yourself to the hospital. Summary ??? Hypothyroidism is when the thyroid gland does not make enough of certain hormones (it is underactive). ??? When the thyroid is underactive, it produces too little of the hormones thyroxine (T4) and triiodothyronine (T3). ??? The most common cause is Gia's disease, a disease in which the body's disease-fighting system (immune system) attacks the thyroid gland. The condition can also be caused by viral infections, medicine, , or past radiation treatment to the head or neck. ??? Symptoms may include weight gain, dry skin, constipation, feeling as though you do not have energy, and not being able to tolerate cold. ??? This condition is treated with medicine to replace the thyroid hormones that your body does not make. This information is not intended to replace advice given to you by your health care provider. Make sure you discuss any questions you have with your health care provider. Document Revised: 10/10/2022 Document Reviewed: 10/10/2022 [employer] Patient Education ? 2023 [email or web address]. Diabetes Mellitus and Foot Care Diabetes, also called diabetes mellitus, may cause problems with your feet and legs because of poor blood flow (circulation). Poor circulation may make your skin: ??? Become thinner and stretcher and drier. ??? Break more easily. ??? Heal more slowly. (more content not included)... [facility] 07-29-2024 History of Present illness Narrative Assessment/Plan Diabetes Mellitus without sign of diabetic retinopathy on dilated retinal examination today OU: Discussed the pathophysiology of diabetes and its effect on the eye. Stressed the importance of strong glucose control. Advised of importance of at least yearly dilated examinations, but to contact us immediately for any problems or concerns. documented in this encounter [facility] 05-10-2024 Hospital Discharge instructions Patient Education 05/10/2024 [...] plan? Your health care provider or certified registered nurse anesthetist can help you make a plan for [...] (heat stroke). Where to find more information [place] Diabetes Association: www.diabetes.org Summary Exercising regularly is important for overall health, especially for people who have diabetes mellitus. Exercising has many health benefits. It increases muscle strength and bone density and reduces body fat and stress. It also lowers and controls blood glucose. Your health care provider or certified registered nurse anesthetist can help you make an activity plan [...] provider. Document Revised: 07/05/2020 Document Reviewed: 07/05/2020 Elsevier Patient Education 2022 [email or web address]. Follow Up Care 12/10/2023 19:22:31 With:Mara BEVERLY MD, FAM Address: When:Within 3 Month(s) Comments:plan A1C at visit, please set up bacxk to back with medicare exam same date thanks [facility] Javi 05-10-2024 Note Patient Education [...] plan? Your health care provider or certified registered nurse anesthetist can help you make a plan for [...] stroke). Where to find more information ? [place] Diabetes Association: www.diabetes.org Summary ? Exercising regularly is important for overall health, especially for people who have diabetes mellitus. ? Exercising has many health benefits. It increases muscle strength and bone density and reduces body fat and stress. It also lowers and controls blood glucose. ? Your health care provider or certified registered nurse anesthetist can help you make an activity plan [...] provider. Document Revised: 07/05/2020 Document Reviewed: 07/05/2020 Elsevier Patient Education ? 2022 [email or web address]. [facility] 04-08-2024 Hospital Discharge instructions Patient Education 04/08/2024 [...] numbers. This can be done either in [place] ([place] or metric measurements. Note that charts and online BMI calculators are available to help you find your BMI quickly and easily without having to do these calculations yourself. To calculate your BMI in [place] ([place] measurements: 1.Measure your weight in pounds [...] Centers for Disease Control and Prevention: www.cdc.gov [place] Heart Association: www.heart.org National Heart, Lung, and Blood [place]: www.nhlbi.nih.gov Summary Body mass index (BMI) is a number that is calculated from a person's weight and height. BMI may help estimate how much of a person's weight is composed of fat. BMI can help identify those who may be at higher risk for certain medical problems. BMI can be measured using Sudanese measurements or metric measurements. BMI charts are used to identify whether you are underweight, normal weight, overweight, or obese. This information is not intended to replace advice given to you by your health care provider. Make sure you discuss any questions you have with your health care provider. Document Revised: 06/30/2020 Document Reviewed: 05/07/2020 [employer] Patient Education 2022 [email or web address]. 04/08/2024 15:40:09 Bedbugs, Kmsh-zj-Fvqg Bedbugs Bedbugs are tiny bugs that live [...] lips, face, mouth, tongue, or throat. ?Feeling casing cleaner the face. ?Itchy, red, swollen areas of [...] provider. Document Revised: 12/26/2022 Document Reviewed: 12/21/2022 [employer] Patient Education 2022 [email or web address]. Follow Up Care 04/08/2024 11:55:11 With:SIRIA ARMENTA, EVI Nicole Address: [address] [place] [address] When: Unknown [facility] 03-25-2024 Hospital Discharge instructions Patient [...] breathing (shortness of breath). Excessive nighttime or hand pattern marker coughing. Chest tightness. Tiredness (fatigue) with minimal [...] condition. Follow these instructions at home: Take zkaa-tlg-wisokkz and prescription medicines only as told by [...] provider. Document Revised: 07/26/2022 Document Reviewed: 07/17/2022 [employer] Patient Education 2022 [email or web address]. Follow Up Care 03/24/2024 22:42:12 With:Mara BEVERLY Address: [address] [place] [id number] Business (1) When:Within 3 Day(s) [facility] 03-24-2024 Evaluation + Plan note Extrac mary [...] cough and congestion, 200 mL, Refill(s) 0, [facility] #37, 177, cm, 03/24/24 22:52:00 EDT, Height/Length Dosing, 128, kg, 03/24/24 22:52:00 EDT, Weight Dosing B-Type Natriuretic Peptide Basic Metabolic Panel CBC w/ Auto Diff ECG 12 Lead Adult ED Cardiac Monitoring eGFR Influenza A&B Ag Oxygen Saturation Oxygen Therapy PT & PTT Rapid COVID Antigen ([facility]) Saline Lock Insert Troponin 0 Hr. Troponin 1 Hr. XR Chest Single View Future Appointments Appointment Date:05/12/2024 06:40:00 PM Scheduled Provider:Mara EBVERLY MD Location:[facility] ED[facility] [place] Appointment Type:FM Open Appointment Date:05/21/2024 02:15:00 PM Scheduled Provider:Farzad FRANCE MD Location:[facility] Appointment Type:URO New Patient Future Scheduled Tests Laboratory* TSH With T4fr Reflex 12/08/23 * Vitamin D 25 Hydroxy 12/10/23 * CBC w/ Auto Diff 12/08/23 * Comprehensive Metabolic Panel 12/08/23 * Lipid Panel 12/08/23 Radiology* MA Mamm Screen w/CAD if perf and 3D Kenji 12/08/23 [facility]05-[facility]-2024 Hospital Discharge instructions Patient Education 03/21/2024 13:41:57 Asthma, Adult, Qftz-lt-Xory Asthma, Adult Asthma is a condition that [...] (dander). Cockroaches. Pollen. Air pollution (like household electric relay tester, wood smoke, smog, or chemical odors). What [...] of polyester or cotton. General instructions Take epia-uho-jnxutkr and prescription medicines only as told by [...] pollute the air. These may include household electric relay tester, wood smoke, smog, or chemical odors. This information is not intended to replace advice given to you by your health care provider. Make sure you discuss any questions you have with your health care provider. Document Revised: 07/17/2022 Document Reviewed: 07/17/2022 [employer] Patient Education 2022 [email or web address]. Follow Up Care 03/21/2024 11:33:38 With:Mara BEVERLY MD, FAM Address: When: only if needed [facility] [place] 05-20-2024 Hospital Discharge instructions Patient Education 03/10/2024 [...] or grass. Air pollutants such as household electric relay tester, aerosol sprays, strong odors, and smoke of [...] Follow these instructions at home: Medicines Take vmvn-upy-iisihur and prescription medicines only as told by [...] provider. Document Revised: 07/30/2022 Document Reviewed: 07/30/2022 [employer] [place] [employer] Patient Education 2022 [email or web address]. Follow Up Care 03/10/2024 16:13:14 With:Mara BEVERLY MD, FAM Address: When: only if needed [facility] [place] 02-19-2024 Hospital Discharge instructions Patient Education 12/10/2023 [...] Do not chew gum. General instructions Take sork-kow-wiogxsr and prescription medicines only as told by [...] important. Where to find more information National [place] of Dental and Craniofacial Research: www.nidcr.nih.gov Contact [...] provider. Document Revised: 05/21/2022 Document Reviewed: 05/21/2022 [employer] Patient Education 2022 [email or web address]. 12/08/2023 16:12:10 DASH Eating Plan DASH Eating [...] Dairy Whole or 2% milk, cream, and pezd-gaf-rhxg. Whole or full-fat cream cheese. Whole-fat or sweetened yogurt. Full-fat cheese. Nondairy creamers. Whipped toppings. Processed cheese and cheese spreads. Fats and oils Butter. Stick margarine. Lard. Shortening. Ghee. Amaral fat. Tropical oils, such as coconut, palm kernel, or palm oil. Seasonings and condiments Onion salt, garlic salt, seasoned salt, table salt, and sea salt. Worcestershire sauce. Tartar sauce. Barbecue sauce. Teriyaki sauce. [...] more information National Heart, Lung, and Blood [place]: www.nhlbi.nih.gov [place] Heart Association: www.heart.org Academy of Nutrition and [...] provider. Document Revised: 09/10/2020 Document Reviewed: 09/10/2020 [employer] Patient Education 2022 [email or web address]. Follow Up Care 11/15/2023 15:10:42 With:Mara BEVERLY MD, FAM Address: [address] [place], [place] [id number]- When: Unknown Comments:see me in April, get labs at [facility] late March and a mammogram at [facility] [place] 12-27-2023 Hospital Discharge instructions Patient Education 10/17/2023 15:11:37 Sinus Infection, Adult, Ktik-xk-Zfip Sinus Infection, Adult A sinus infection is [...] saline washes). ?Medicines that treat allergies (antihistamines). ?Wylr-fuq-qdrbumo pain relievers. If caused by bacteria, your doctor may wait to see if you will get better without treatment. You may be given antibiotic medicine if you have: ?A very bad infection. ?A weak body defense system. If caused by growths in the nose, surgery may be needed. Follow these instructions at home: Medicines Take, use, or apply twiy-aka-mltzvbc and prescription medicines only as told by [...] cannot use soap and water, use hand information systems administrator. Do not smoke. Avoid being around people [...] provider. Document Revised: 09/12/2022 Document Reviewed: 09/12/2022 [employer] Patient Education 2022 [employer] 10/17/2023 15:11:36 BMI for Adults BMI for [...] numbers. This can be done either in [place]ese (U.S.) or metric measurements. Note that charts and online BMI calculators are available to help you find your BMI quickly and easily without having to do these calculations yourself. To calculate your BMI in [place]ese (U.S.) measurements: 1.Measure your weight in pounds [...] Centers for Disease Control and Prevention: www.cdc.gov [place] Heart Association: www.heart.org National Heart, Lung, and Blood [place]: www.nhlbi.nih.gov Summary Body mass index (BMI) is a number that is calculated from a person's weight and height. BMI may help estimate how much of a person's weight is composed of fat. BMI can help identify thosewho may be at higher risk for certain medical problems. BMI can be measured using Sudanese measurements or metric measurements. BMI charts are used to identify whether you are underweight, normal weight, overweight, or obese. This information is not intended to replace advice given to you by your health care provider. Make sure you discuss any questions you have with your health care provider. Document Revised: 06/30/2020 Document Reviewed: 05/07/2020 [employer] Patient Education 2022 [email or web address]. Follow Up Care 10/17/2023 10:36:14 With:Mara BEVERLY MD, FAM Address: [address] [place] [id number] When: Unknown [facility] 07-27-2023 Evaluation + Plan noteExtracted from: Title:Discharge Summary * Author:Anil Grimaldo DO [...] with brace on in full extension. Mepilex. [place] out POD#21. ASA DVTp daily 4 weeks. [...] BID. .. Extracted from: Title:Initial consult Hospitalist Author:Roland veras MD, Lcnhbryant Date:05/16/23 Extensor mechanism malalignm ent of knee [...] Plan: per Orthopedics Addendum by Analy ARMENTA, [facility] ad on May 16, 2023 18:34:39 EDT [...] Unit, and To home ). [facility]07-24-2023 Hospital Discharge instructions Follow Up Care 05/14/2023 10:03:11 With:Melva Grimaldo Address: [address] [place], [place] [phone] [place] (1) When: Unknown Comments:Keep scheduled appointment [facility]06-01-2023 Hospital Discharge instructions Patient Education 03/22/2023 20:43:43 [...] provider. Document Revised: 02/27/2022 Document Reviewed: 02/27/2022 [employer] Patient Education 2022 [email or web address]. Follow Up Care 09/18/2022 10:47:10 With:Mara BEVERLY MD, FAM Address: [address] [place] [id number]- When:6 months [facility] [place] 11-06-2022 Hospital Discharge instructions Patient [...] 04/22/2012 Document Revised: 10/01/2019 Document Reviewed: 10/01/2019 [employer] Patient Education 2019 [email or web address]. [facility] [place] 10-22-2022 Hospital Discharge instructions Patient Education 08/12/2022 [...] height. This can be done either in [place]ese (U.S.) or metric measurements. Note that charts are available to help you find your BMI quickly and easily without having to do these calculations yourself. To calculate your BMI in [place]ese (U.S.) measurements, your health care provider will: [...] medical problems. BMI can be measured using Sudanese measurements or metric measurements. To interpret your [...] 06/19/2005 Document Revised: 09/20/2018 Document Reviewed: 08/21/2018 [employer] Patient Education 2020 [email or web address]. 08/12/2022 13:36:15 Sinusitis, Adult, Xfzu-da-Eyso Sinusitis, Adult Sinusitis is soreness and swelling [...] at home: Medicines Take, use, or apply xdwt-icd-hbmlopu and prescription medicines only as told by [...] is no soap and water, use hand information systems administrator. Do not smoke. Avoid being around people [...] 03/26/2009 Document Revised: 03/10/2019 Document Reviewed: 03/10/2019 [employer] Patient Education 2020 [email or web address]. Follow Up Care 08/12/2022 11:36:36 With:SIRIA ARMENTA, EVI Nicole Address: [address] [place], [place] [phone] When: Unknown [facility] 07-29-2022 Hospital Discharge instructions Follow Up Care 05/19/2022 10:40:52 With:Isaac ARMENTA, Dolores Dunlap Address: When:3 months Comments:Call for sooner apt with new/worsening symptoms [facility]07-05-2022 Hospital Discharge instructions Patient Education 04/25/2022 21:16:41 [...] Follow these instructions at home: Medicines Take pslc-dnk-btfpjlb and prescription medicines only as told by [...] 07/18/2006 Document Revised: 04/10/2019 Document Reviewed: 04/10/2019 [employer] Patient Education 2019 [email or web address]. Follow Up Care 04/25/2022 16:19:02 With:Mara BEVERLY MD, FAM Address: When: only if needed [facility] [place] 05-23-2022 Hospital Discharge instructions Patient Education 03/13/2022 [...] pollution. Aerosol sprays and fumes from household electric relay tester. Household pests and their droppings, including dust [...] or starting any new medicines. Medicines Take unce-nws-asevmca and prescription medicines only as told by [...] 09/26/2010 Document Revised: 09/20/2018 Document Reviewed: 03/24/2017 [employer] Patient Education 2020 [email or web address]. Follow Up Care 09/13/2021 10:56:46 With:Mara BEVERLY MD, FAM Address: [address] [place] [phone] When:6 months [facility] Evaluation + Plan note Future Appointments Appointment Date:03/14/2022 10:20:00 AM Scheduled Provider:[facility]EVERLY [facility]: Open Future Scheduled Tests Laboratory* TSH With T4fr Reflex 09/13/21 * CBC w/ Auto Diff 09/13/21 * Comprehensive Metabolic Panel 09/13/21 * Lipid Panel 09/13/21 Radiology* MRI Shoulder w/o Contrast Right [facility]ments Appointment Date:08/29/2022 10:20:00 AM Scheduled Provider:Mara BEVERLY MD [facility] Appoint[facility] Type: Open Future Scheduled Tests Radiology* MRI Shoulder w/o Contrast Right 09/13/21 [facility] Evaluation + Plan note Future Appointments Appointment Date:08/29/2022 10:20:00 AM Scheduled Provider:Mara BEVERLY MD Location:[facility] [place] Appointment Type: Open Future Scheduled Tests Radiology* MRI Shoulder w/o Contrast Right 09/13/21 [facility] Evaluation + Plan note Future Appointments Appointment Date:08/29/2022 10:20:00 AM Scheduled Provider:Mara BEVERLY MD [facility] App[facility] Type: Open Future Scheduled Tests Radiology* Echo Transthoracic Complete 05/18/22 * NM Myocardial Spect Rest/Stress 2 Day 05/18/22 * MRI Shoulder w/o Contrast Right [facility]13[facility] App[facility]ments Appointment Date:08/29/2022 10:20:00 AM Scheduled Provider:Mara BEVERLY MD [facility] Appointment Type:FM Open Appointment Date:09/27/2022 11:45:00 AM Scheduled Provider:Dolores Gray MD Location[facility] Appointment Type:Cardiology Follow Up (FT) Future Scheduled Tests Radiology* MRI Shoulder w/o Contrast Right 09[facility]13/[facility]ments Appointment Date:08/22/2022 08:30:00 AM Scheduled Provider: [facility] Type:Cardiology Nurse Visit (FT) Appointment Date:08/29/2022 10:20:00 AM Scheduled Provider:Mara BEVERLY MD Location:[facility] Appointment Type: Open Appointment Date:09/27/2022 11:45:00 AM Scheduled Provider:Dolores Gray MD [facility] Type:Cardiology Follow Up (FT) Future Scheduled Tests Radiology* MRI Shoulder w/o Contrast Right 09/13/21 [facility] Evaluation + Plan note Future Appointments Appointment Date:09/27/2022 11:45:00 AM Scheduled Provider:Dolores Gray MD [facility] Type:Cardiology Follow Up (FT) Future Scheduled Tests Radiology* MRI Shoulder w/o Contrast Right 09/13/21 [facility] [place] Evaluation + Plan note Future Appointments Appointment Date:03/19/2023 09:40:00 AM Scheduled Provider:Mara BEVERLY MD Location:[facility] Appointment Type: Open [facility] Evaluation + Plan note Future Appointments Appointment Date:04/02/2023 07:30:00 AM Scheduled Provider: Location:[facility] Appointment Type:Surgery FT Future Scheduled Tests Laboratory* TSH With T4fr Reflex 03/23/23 * ALT 03/23/23 * AST 03/23/23 * Lipid Panel 03/23/23 [facility] Evaluation + Plan note Future Appointments Appointment Date:04/02/2023 07:30:00 AM Scheduled Provider: Location:[facility] App[facility]ment Type:[facility]gery [facility] App[facility]ments Appointment Date:05/12/2024 06:40:00 PM Scheduled Provider:Mara BEVERLY MD [facility] Type: Open Future Scheduled Tests Laboratory* TSH With T4fr Reflex 12/08/23 * Vitamin D 25 Hydroxy 12/10/23 * CBC w/ Auto Diff 12/08/23 * Comprehensive Metabolic Panel 12/08/23 * Lipid Panel 12/08/23 Radiology* MA Mamm Screen w/CAD if perf and 3D Kenji 12/08/23 [facility] Evaluation + Plan note Future Appointments Appointment Date:05/12/2024 06:40:00 PM Scheduled Provider:Mara BEVERLY MD [facility] App[facility] Type: Open Appointment Date:05/21/2024 02:15:00 PM Scheduled Provider:Farzad FRANCE MD Location:[facility] Appointment Type:URO New Patient Future Scheduled Tests Laboratory* TSH With T4fr Reflex 12/08/23 * Vitamin D 25 Hydroxy 12/10/23 * CBC w/ Auto Diff 12/08/23 * Comprehensive Metabolic Panel 12/08/23 * Lipid Panel 12/08/23 Radiology* MA Mamm Screen w/CAD if perf and 3D Kenji 12/08/23 [facility] Evaluation + Plan note Future Appointments Appointment Date:05/12/2024 06:40:00 PM Scheduled Provider:Mara BEVERYL MD [facility] App[facility] Type: Open Appointment Date:05/21/2024 02:15:00 PM Scheduled Provider:Farzad FRANCE MD Location:[facility] Appointment Type:URO New Patient Future Scheduled Tests Laboratory* HgbA1c 04/14/24 Radiology* MA Mamm Screen w/CAD if perf and 3D Kenji 12/08/23 [facility] App[facility]ments Appointment Date:05/14/2024 12:15:00 PM Scheduled Provider: Location:FT[facility] Appointment Type:MA Screen (FT) Appointment Date:05/14/2024 01:00:00 PM Scheduled Provider: Location:FT.BD Appointment Type:BD Bone Density (FT) Appointment Date:05/21/2024 02:15:00 PM Scheduled Provider:Farzad FRANCE MD Location:[facility] Appointment Type:URO New Patient Appointment Date:08/19/2024 02:30:00 PM Scheduled Provider: [facility] Appointment Type:FM Medicare Wellness Welcome Appointment Date:08/19/2024 03:40:00 PM Scheduled Provider:Mara BEVERLY MD [facility] Appointment Type:FM Open Future Scheduled Tests Radiology* BD Bone Density DEXA 05/14/24 * MA Mamm Screen w/CAD if perf and 3D Kenji 05/14/24 [facility] [place] Evaluation + Plan note Future Appointments Appointment Date:05/14/2024 12:15:00 PM Scheduled Provider: Location:.[facility] Appointment Type:MA Screen (FT) Appointment Date:05/14/2024 01:00:00 PM Scheduled Provider: Location:[facility] Appointment Type:BD Bone Density (FT) Appointment Date:05/21/2024 02:15:00 PM Scheduled Provider:Farzad FRANCE MD Location:[facility] Appointment Type:URO New Patient Appointment Date:08/19/2024 02:30:00 PM Scheduled Provider: Location:[facility] Appointment Type:FM Medicare Wellness Welcome Appointment Date:08/19/2024 03:40:00 PM Scheduled Provider:Mara BEVERLY MD [facility] Appoint[facility] Type: Open Diagnostic Tests Pending * Microalbumin Level Urine 05/12/24 * U Protein/Creat Ratio 05/12/24 Future Scheduled Tests Radiology* BD Bone Density DEXA 05/14/24 * MA Mamm Screen w/CAD if perf and 3D Kenji [facility]14/24 [facility] App[facility]ments Appointment Date:05/21/2024 02:15:00 PM Scheduled Provider:Farzad FRANCE MD Location:[facility] Appointment Type:URO New Patient Appointment Date:08/19/2024 02:30:00 PM Scheduled Provider: [facility] Appointment Type:FM Medicare Wellness Welcome Appointment Date:08/19/2024 03:40:00 PM Scheduled Provider:Mara BEVERLY MD Location:[facility] Appointment Type: Open [facility] Evaluation + Plan note Future Appointments Appointment Date:08/20/2025 11:00:00 AM Scheduled Provider: Location:[facility] [place] Appointment Type: Medicare Wellness Subsequent [facility] [place] Evaluation note* Diagnosis Type 2 diabetes mellitus without complication, without long-term current use of insulin ([facility])- Primary Pseudophakia Lens replaced by other means documented in this encounter [facility] HealthcareEvaluation noteNo assessment information availablePremier Health Atrium [facility] Work Phone: Hospital course Narrative No data available for this section [facility] No data available for this section [facility] No data available for this section [facility] [place] History of Present Illness * Exten, Carlos [...] From anonsurgical standpoint I would recommend a [place] walker. This could be custom fit for her. I would recommend that she try to find a shoe of adequate height to have on the other side in order to minimize discomfort in her back. If she does not have significant relief from the [place] walker I would recommend obtaining a CT scan for presurgical planning and considering fusion of multiple joints in the hindfoot and midfoot including the calcaneocuboid, talonavicular, navicular cuneiform, and possible tarsometatarsal joints. She would need to be nonweightbearing for approximately 12 weeks after surgery. After discussion the patient and her sister both agree that she would like to try nonsurgical treatment first. The [place] walker was ordered. She will have this fitted at [facility] in [place]. She will follow-up after wearing it for several weeks. Levi Sofia was agreeable to the plan and there were no learning barriers encountered. Follow-Up: After wearing the [place] walker for several weeks. X-rays of the [...] swollen. She was seen initially in the [facility] podiatry department. She was first [...] she saw for her foot was a production support engineer by the name of Dr. Wakfeield in [place]. Overall for the treatment of her foot and ankle she has never been given a custom brace. She does have a pair of three-quarter length hard podiatry style orthotics. These were prescribed by Dr. gonzalez. she has also been given an ASO. Aside from when she was in the cast she was never nonweightbearing. She was told by a production support engineer in the past that she has neuropathy. She is not a diabetic. She has noknown causes of neuropathy. 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 She is not a smoker. Past Medical History: Diagnosis Date Disease of thyroid gland Hypertension and Past Surgical History: Procedure Laterality Date ELBOW SURGERY Left 2011 scope FOOT SURGERY Right [address] Gonzalez Past medical, past surgical, family history, medications, allergies, and smoking status reviewed and updated as appropriate in EPIC. A 13-system review of systems was completed by Levi today and reviewed by Dr. Carlos Carter during [...] the following: She will remain in the [place] walker and wear the elevated shoe on [...] appointment I recommended that she get a [place] walker. She has that today. She also [...] were reviewed and updated as appropriate in [facility]. She is not a current tobacco user. Exam: Vitals: 03/12/19 1007 BP: 146/87 Pulse: 79 Weight: 129.3 kg (285 lb) Height: 5' 10 The patient is awake, alert and orientated x3, and in no apparent distress. Standing: Patient is ambulating in a [place] walker and shoe with a lift on [...] we. Think about coming out of the [place] walkerand into a diabetic shoe and orthotic. [...] midfoot deformity. She has been using a [place] walker. She says her pain is significantly improved in the [place] walker. She now is having pain on [...] distress. Standing: Patient is ambulating in a [place] walker and shoe with a lift on [...] Visit Patient Name: Levi Sofia MR #: [id number] : 1960 Physicians: Mara Beverly MD (Family); [...] was in [address] Yanez in [facility]. She has long-standing history of allergy/sinus problems [...] file Gets together: Not on file Attends yazdanism service: Not on file Active member of [...] Conti CNP 03/09/20 documented in this encounter* Exten, Carlos Gerber MD - 06/14/2020 11:04 AM EDT Impression: [...] try laminated lining. These were fashioned at [employer]. She also does not have relief from [...] 07/13/2020 10:10 AM EDT OFFICE CONSULTATION NOTE [facility] [address]) [facility] [address] [facility] [phone] Physicians: Mara Beverly MD (Family); Carlos Carter [...] injections for this. She has seen several production support engineer and orthopedic surgeons in the past for [...] left foot. Patient was fitted with a [place] walker for the left foot which did [...] nostril daily . 03/09/20 03/09/21 Yes Jaspreet Duffyer, KAVITHA cetirizine (ZYRTEC) 5 MG tablet Take 5 [...] Foot Added automatically from request for surgery [id number] Objective: Vitals: BP 140/75 (BP Location: Left [...] Ochoa MD 07/18/2020 documented in this encounter* Emma, Carlos Gerber MD - 09/04/2019 8:30 AM EST Impression: 1. Charcot's joint of left foot 2. Neuropathy, idiopathic Plan: The above diagnosis as well as the options for treatment were discussed with Levi in clinic today. At this time we recommend the following: I recommend she continue in the [place] walker. She will follow-up in 6 months with new repeat x-rays of the left foot. We discussed that after that point time she can either try to get back into regular footwear or shecan continue wearing the [place] walker lifelong. Levi was agreeable to the plan and there were no learning barriers encountered. Follow-Up: Followup 6 months. New xrays will be needed at the next visit. Subjective: Levi Sofia is here for a follow visit in regards to her left charcot midfoot deformity. She has been using a [place] walker. She says her pain is significantly improved in the [place] walker. Smoking status, allergies, medications, and non-medications were reviewed and updated as appropriate in Epic. She is not a current tobacco user. Exam: Vitals: 09/04/19 0831 BP: 147/84 Pulse: (!) 59 Weight: 129.3 kg (285 lb) Height: 5' 10 The patient is awake, alert and orientated x3, and in no apparent distress. Standing: Patient is ambulating in a [place] walker and shoe with a lift on [...] file Gets together: Not on file Attends yazdanism service: Not on file Active member of club or organization: Not on file Attends meetings of clubs or organizations: Not on file Relationship status: Not on file Other Topics Concern Not on file Social History Narrative Not on file No family history on file. Past Surgical History: Procedure Laterality Date ELBOW SURGERY Left 2011 scope FOOT SURGERY Right [address] Gonzalez The following systems were [...] or other concerns. She is employed at [employer] and would like to haveCT completed there. [...] FoundDocuments on File Type Date Recorded Patient Operations Research Engineer Expl anation Advance Directives and Livin g Will 03/12/2019 10:07 AM Documents on File Type Date Recorded Patient Operations Research Engineer Expl anation Advance Directives and Livin g Will 2020 10:32 AM Documents on File Type Date Recorded Patient Operations Research Engineer Expl anation Advance Directives and Livin g Will 2020 10:32 AM Documents on File Type Date Recorded Patient Operations Research Engineer Expl anation Advance Directives and Livin g [...] this section No Family History Records Found Instructions * Patient Instructions* Eil Riddle MA - 07/13/2020 10:00 AM EDT [...] pollen counts are high. Use a vacuum office cleaner with aHEPA filter or a double-thickness filter [...] call 911, even if you feel better. [id number] if: You have symptoms of a severe [...] Log into your personal health record on [email or web address] and enter W171 in the Education box to learn more about Allergies: Care Instructions. Current as of: July 28, 2019 Content Version: 12.5 [employer]. Care instructions adapted under license by your healthcare professional. If you have questions about a medical condition or this instruction, always ask your healthcare professional. [employer] disclaims any warranty or liability for your use of this information. documented in this encounter Reason for Referral Status Reason Specialty Diagnoses / Procedures Referred By Contact Referred To Contact New Request Radiology Diagnoses Recurrent sinusitis Procedures CT Sinus [address] [address] [place] [address] Additional Source Comments Reason for Visit (unrecogniz ed section and content) Reason Comments Pain ANKLE AND FOOT PAIN Pain Reason Comments Follow-up F/U LT CHARCOT FOOT WITH NEUROPATHY-EMMONAK WALKER Pain Reason Comments Follow-up LT FOOT CHARCOT FOOT W/ NEUROPATHY Follow-up Reason Comments Acute recurrent frontal sinusitis Status Reason Specialty Diagnoses / Procedures Referred By Contact Referred To Contact Closed Otolaryngology Diagnoses Acute recurrent frontal sinusitis Mara Beverly MD [address] [place] [address] Javier Fischer MD [address] [facility] [address] [place] [address] Status Reason Specialty Diagnoses / Procedures Re ferred By Contact Referred To Contact Diagnoses Charcot's joint of left foot Procedures VR Epidural Steroid Inj-B/L TALONAVICULAR AND CALCANEOCUBOID JOINT INJECTION Senait Ochoa MD [address] [place] [address] Reason Comments PT Initial Evaluation charcot foot Status Reason Specialty Diagnoses / Procedures Referred By Contact Referred To Contact Closed Specialty Services Required/Patie nt's Best Interest Interventional Radiology / Cardiology Diagnoses Charcot's joint of left foot Neuropathy, idiopathic Pain Exten, Carlos Gerber MD [address] [place] [address] Senait Ochoa MD [address] [facility] [address] [place] [id number] Reason Comments Follow-up LT CHARCOT FOOT WITH NEUROPATHY -EMMONAK WALKER Follow-up Reason Comments Follow-up CT Sinus Review Reason Comments Follow-up 6 week f/u recurrent sinusitis and rhinitis Reason Comments Diabetic Eye Exam INFORMATION SOURCE (unrecogn ized section and content) DATE CREATED AUTHOR 02/07/2019 [facility] DATE CREATED AUTHOR AUTHOR'S ORGANIZ ATION 08/13/2020 [facility] DATE CREATED AUTHOR AUTHOR'S ORGANIZ ATION 08/14/2020 [facility] DATE CREATED AUTHOR AUTHOR'S ORGANIZ ATION 05/09/2022 [facility] DATE CREATED AUTHOR AUTHOR'S ORGANIZ ATION 12/29/2022 [facility] DATE CREATED AUTHOR AUTHOR'S ORGANIZ ATION 03/25/2024 [facility] DATE CREATED AUTHOR AUTHOR'S ORGANIZ ATION 04/15/2024 [facility] DATE CREATED AUTHOR AUTHOR'S ORGANIZ ATION 05/16/2024 [facility] DATE CREATED AUTHOR AUTHOR'S ORGANIZ ATION 07/30/2024 [facility] DATE CREATED AUTHOR AUTHOR'S ORGANIZ ATION 08/21/2024 [facility] DATE CREATED AUTHOR AUTHOR'S ORGANIZ ATION 08/23/2024 [facility] DATE CREATED AUTHOR AUTHOR'S ORGANIZ ATION 09/05/2024 [facility] DATE CREATED AUTHOR AUTHOR'S ORGANIZ ATION 09/21/2024 [facility] Assessment & Plan Note - Senait [...] Care Team (unrecognized sect ion and content) Administration Assistant Relationship Specialty Start Date End Date Mara Beverly MD [address] [place] [address] PCP - General 03/14/23 Administration Assistant Relationship Specialty Start Date End Date Mara Beverly MD [address] [place] [id number] PCP - General 03/14/23 Team Status: Inactive Member Role Status Dates Julio Johnson DPM MS Attending Provider Active Start: September 02, 2024 End: September 02, 2024 Goals (unrecognized section and content) Goals may be documented in a n alternate section FOR RECORDS PERTAINING TO PATIENTS WHO ARE [...] BE BASED ON THE PRIMARY CLINICAL RECORDS. [facility] [employer] provides no warranty or guarantee of the accuracy or completeness of information in this document.
== END 2024-09-23 13:52 | disposition home or self-care (01) ==
LOC: RAD 13:51
PROVIDERS: Visit Provider Podiatrist Foot & Ankle Surgery
DX: M79.671 Pain in right foot (principal); M24.674 Ankylosis, right foot
CPT/HCPCS: 73630

== ENCOUNTER 2024-10-09 14:14 | Outpatient (OUT) | payer OTHER, SELFPAY ==
--- NOTE | 2024-10-09 | XR_ITS ---
The [address] [address] Patient Name: LEVI SOFIA MRN: [id number] date: 1960 Sex: F Assigned Patient Location: Current Patient Location: Accession/Order Number: [id number] Exam Date: 10/09/2024 14:30 Report Date: 10/11/2024 07:03 At the request of: CHRISTOPHER WILBURN Procedure: XR foot RT min 3V PROCEDURE: XR foot RT min 3V HISTORY: RIGHT FOOT PAIN COMPARISON: XR foot right 09/23/2024 FINDINGS: BONES:Mechanical fusion of the hindfoot and medial midfoot via several screws. No appreciable hardware fracture loosening. Prior first metatarsal osteotomy and repair. SOFT TISSUES:Distal dorsal soft tissue swelling; unchanged. EFFUSION:None visible. OTHER: Negative. XR/XR foot RT min 3V IMPRESSION: 1. Stable surgical changes without evidence of hardware failure or change in alignment. 2. Stable advanced degenerative changes of the midfoot. Electronically authenticated by: JODI PAPPAS Date: 10/11/2024 07:03
== END 2024-10-09 14:15 | disposition home or self-care (01) ==
LOC: EC 14:14
PROVIDERS: Visit Provider Physician Assistant
DX: M79.671 Pain in right foot (principal); M24.674 Ankylosis, right foot
CPT/HCPCS: 73630

== ENCOUNTER 2024-10-31 09:36 | Outpatient (OUT) | payer OTHER, SELFPAY ==
--- NOTE | 2024-10-31 | XR_ITS ---
The [address] [address] Patient Name: LEVI SOFIA MRN: [id number] date: 1960 Sex: F Assigned Patient Location: Current Patient Location: Accession/Order Number: [id number] Exam Date: 10/31/2024 09:37 Report Date: 10/31/2024 12:42 At the request of: JULIO JOHNSON Procedure: XR foot RT min 3V PROCEDURE: XR foot RT min 3V HISTORY: RIGHT FOOT PAIN COMPARISON: XR foot right 10/09/2024 FINDINGS: BONES:Marked degenerative changes the midfoot with collapse of the plantar arch. Fusion of the medial aspect of the midfoot and fusion of the talocalcaneal joint posteriorly. Prior first metatarsal osteotomy and repair. SOFT TISSUES:Soft tissue swelling surrounding the foot. EFFUSION:None visible. OTHER: Negative. XR/XR foot RT min 3V IMPRESSION: 1. Stable surgical changes and grossly stable advanced degenerative changes compatible with Charcot joint. 2. No acute findings Electronically authenticated by: JODI PAPPAS Date: 10/31/2024 12:42
== END 2024-10-31 09:37 | disposition home or self-care (01) ==
LOC: EC 09:36
PROVIDERS: Visit Provider Podiatrist Foot & Ankle Surgery
DX: M79.671 Pain in right foot (principal); M24.674 Ankylosis, right foot; Z98.890 Other specified postprocedural states
CPT/HCPCS: 73630

== ENCOUNTER 2024-11-21 08:56 | Outpatient (OUT) | payer OTHER, SELFPAY ==
--- NOTE | 2024-11-21 | XR_ITS ---
The [address] [address] Patient Name: LEVI SOFIA MRN: [id number] date: 1960 Sex: F Assigned Patient Location: Current Patient Location: Accession/Order Number: [id number] Exam Date: 11/21/2024 08:56 Report Date: 11/24/2024 11:19 At the request of: JULIO JOHNSON Procedure: XR foot RT min 3V PROCEDURE: XR foot RT min 3V HISTORY: RIGHT FOOT PAIN COMPARISON: XR foot right 10/31/2024 FINDINGS: BONES:Advanced degenerative changes of the midfoot suggestive of Charcot joint. Mechanical fusion of the medial midfoot and the talocalcaneal joint via 3 fusion screws. 2 small screws within the neck of first metatarsal. Suspect prior bunionectomy. Marked flattening of the plantar arch. Small calcaneal plantar spur. SOFT TISSUES:Soft tissue swelling surrounding the foot and ankle. EFFUSION:None visible. OTHER: Negative. XR/XR foot RT min 3V IMPRESSION: 1. Grossly stable advanced degenerative changes and surgical changes. 2. No acute finding. Electronically authenticated by: JODI PAPPAS Date: 11/24/2024 11:19
--- OUTSIDE RECORDS SUMMARY | 2024-11-21 09:09 | XMS_ITS | CCD ---
Author Organization [facility] Care Team Providers Care Customer Account Administrator Name Role Phone Mara Beverly Primary Care Provider [phone] SYSTEM, PROVIDER NOT IN Attending Unavaila ble SYSTEM, PROVIDER NOT IN Referring Unavaila ble PANDA BEVERLYER R Primary Care Unavailable SYSTEM, PROVIDER NOT IN Attending Unavaila ble SYSTEM, PROVIDER NOT IN Referring Unavaila ble SIRIA CHRISTOPHER R Primary Care Unavailable Brown Christopher R Primary Care Provider [phone] Mara Beverly Primary Care Provider Senait Ochoa Unavailable EXTENCARLOS Attending Unavailable BROWN, CHRISTOPHER R Primary Care Unavailable EXTEN, CARLOS GERBER Attending Unavailable BROWN, CHRISTOPHER R Primary Care Unavailable PRYKHOJAVIER HAWTHORNE Attending U navailable BROWN, CHRISTOPHER R Primary Care Unavailable EXTEN, CARLOS GERBER Attending Unavailable BROWN, CHRISTOPHER R Primary Care Unavailable BROWN, CHRISTOPHER R Admitting Unavailable TECHNICAL SALES MANAGERJASPREET CAMPBELL Attending Unavailab le BROWN, CHRISTOPHER R Referring Unavailable BROWN, CHRISTOPHER R Primary Care Unavailable TECHNICAL SALES MANAGERJASPREET CAMPBELL Attending Unavailab le BROWN, CHRISTOPHER R [...] OCHOA Admitting Unavailable SENAIT OCHOA Attending Unavailable SIRIA, MICHELLEOPHER Harriet Primary Care Unavailable Senait Ochoa Unavailable Mara BEVERLY Primary Care Physician Litzy Mack Unavailable Unavailable Lorna Almanzar Unavailable Unavailable ALEX, JULIO Mccray Admitting Unavailable ALEX, JULIO Mccray Attending Unavailable Jodi Pappas Consulting Unavailable JULIO JOHNSON Consulting Unavailable Mara BEVERLY Primary Care Physician Mara BEVERLY Admitting Unavailable Mara BEVERLY Attending Unavailable Yuniel Ocasio Attending Unavailable EMELYN POLK Attending Unavailable Mara BEVERLY Attending Unavailable Mara BEVERLY Admitting Unavailable TURNERBUBBA Attending Unavailable GRIMALDO, MELVA T Referring Unavailable MEDVES, DOLORES Calixto Attending Unavailable GRIMALDO, MELVA T Referring Unavailable TURNER, BUBBA Attending Unavailable GRIMALDO, MELVA T Referring Unavailable GRIMALDO, MELVA T Referring Unavailable GRIMALDO, MELVA T Attending Unavailable MEDVES, DOLORES [place]o Attending Unavailable GRIMALDO, MELVA T Referring Unavailable TURNER, BUBBA Attending Unavailable GRIMALDO, MELVA T Referring Unavailable DEPOYDONG Attending Unavailable GRIMALDO, MELVA T Referring Unavailable TRUNER, BUBBA Attending Unavailable GRIMALDO, MELVA T Referring [...] Mara Beverly MD Primary Care Provider BROWN, Michelleopher Attending Unavailable BROWN, Christopher Attending Unavailable BROWN, Christopher Admitting Unavailable BROWN, Christopher Attending Unavailable BROWN, Christopher Attending Unavailable BROWN, Christopher Attending Unavailable BROWN, Christopher Attending Unavailable Yuniel Ocasio Attending Unavailable BROWN, Christopher Attending Unavailable BROWN, Christopher Referring Unavailable Farzad FRANCE Attending Unavailable Julio Johnson Attending Unavailable Julio Johnson Admitting Unavailable Highlander DPM, Julio Mccray Attending Provider Mara BEVERLY Attending Unavailable Grimaldo, Melva T Attending Unavailable Grimaldo, Melva T Referring Unavailable BROWN, Mara Attending Unavailable BROWN, Michelleopher Referring Unavailable BROWN, Michelleopher Attending Unavailable BROWN, Christopher Referring Unavailable BROWN, Christopher Admitting Unavailable BROWN, Christopher Admitting Unavailable BROWN, Christopher Attending Unavailable BROWN, Michelleopher Attending Unavailable Allergies Allergy Classification Reported Allergen(s) Allergy Type Date of Onset Reaction(s) Facility (20 sources) Amoxicillin / Clavulanate; Translations: [AMOXICILLIN-POT CLAVULANATE] Drug Allergy 3 [facility] (20 sources) Chlorzoxazone; Translations: [CHLORZOXAZONE] Drug Allergy 9 [facility] (20 sources) moxifloxacin; Translations: [MOXIFLOXACIN] Drug Allergy 9 [facility] (20 sources) Penicillins; Translations: [PENICILLINS] Propensity to adverse reactions to drug 7 [facility] (20 sources) Penicillin; Translations: [penicillin] Drug Allergy [facility] Comment on above: Tolerated ceftriaxon e during 12/2017 admission (20 sources) Penicillin V; Translations: [penicillin V potassium] Drug Allergy Unknown (qualifier value) [facility] (5 sources) Amoxicillin / Clavulanate; Translations: [Augmentin] Drug Allergy [facility] (1 source) moxifloxacin Drug Allergy [facility] (5 sources) Penicillin; Translations: [penicillin] Drug Allergy [facility] (1 source) Parafon Forte Drug allergy (disorder) [facility] (4 sources) moxifloxacin; Translations: [Avelox] Drug Allergy [facility] (4 sources) Antibiotic; Translations: [Antibiotic] Propensity to adverse reactions (disorder) [facility] (4 sources) Parafon Forte DSC; Translations: [Parafon Forte DSC] Propensity to adverse reactions (disorder) [facility] (5 sources) Chlorzoxazone Drug Allergy 9 Unknown [facility] Medications Current Medications Medication Drug Class(es) Dates Sig (Normalized) Sig (Original) [id number] actuat albuterol 0.09 mg/actuat metered dose [...] wheezing, 25 EA, Refill(s) 0, dx. J45.41, [facility], 179, cm, 09/27/22 13:30:00 EST, Height/Length Dosing, 130, kg, 09/27/22 13:30:00 EST, Weight Dosing Start Date: 09/28/22 Status: Ordered Start: 08-09-2022 take 1 dose by inhal ation every six hours ProAir HFA 90 mcg/inh inhalation aerosol 2 puff(s), Inhalation, q6hr for wheezing, 1 EA, Refill(s) 1, [facility], 179, cm, 06/28/22 9:21:00 EDT, Height/Length [...] q6hr for wheezing, 1 EA, Refill(s) 1, [facility], 178, cm, 07/11/21 10:05:00 EDT, Height/Length Dosing, 127, kg, 07/11/21 10:05:00 EDT, Weight Dosing Start Date: 07/11/21 Status: Ordered Start: 08-05-2019 take 2.5 mg by inhal ation every six hours for wheezing albuterol 0.083% Inh Mamie 3 mL 2.5 mg, 3 mL, Inhalation, q6hr for wheezing, 25 EA, Refill(s) 0, [facility] Start Date: 08/05/19 Status: Ordered Start: 08-05-2019 take 2.5 mg by inhal ation every six hours for wheezing albuterol 0.083% Inh Mamie 3 mL 2.5 mg, 3 mL, Inhalation, q6hr for wheezing, 25 EA, Refill(s) 0, [facility] Start Date: 08/05/19 Status: Ordered Albuterol (Eqv-ProAir HFA) 90 mcg/inh inhalation aerosol (12 sources) Start: 2024 take 2 puff(s) by inhalation every six hours Albuterol (Eqv-ProAir HFA) 90 mcg/inh inhalation aerosol 2 puff(s), Inhalation, q6hr, 8 gm, Refill(s) 5, other reason (Rx) Start Date: 03/09/24 Status: Ordered albuterol 0.833 mg/ml / ipratropium bromide 0.167 mg/ml inhalation solution (17 sources) Anticholinergi c, beta2-Adrenerg ic Agonist Start: [...] day(s), # 30 tab(s), Refills(s) 0, Pharmacy: [facility], 177, cm, 05/16/23 13:32:00 EDT, Height/Length [...] tablet (20 sources) HMG-CoA Reductase Inhibitor Start: 04-27-2023 take 1 tablet by mouth once daily at bedtime atorvastatin 20 mg Tab 20 mg = 1 tab(s), Oral, Once a day (at bedtime), # 90 tab(s), Refills(s) 4, Pharmacy: [facility], 177, cm, 05/12/24 19:05:00 EDT, Height/Length Dosing, 125, kg, 05/12/24 18:58:00 EDT, Weight Dosing Start Date: 08/04/24 Status: Ordered Start: 01-12-2023 take 1 tablet by brendan th once daily at bedtime atorvastatin 20 mg Tab 20 mg = 1 tab(s), Oral, Once a day (at bedtime), # 90 tab(s), Refills(s) 1, Pharmacy: [facility], 179, cm, 09/27/22 13:30:00 EST, Height/Length Dosing, 130, kg, 09/27/22 13:30:00 EST, Weight Dosing Start Date: 01/12/23 Status: Ordered Start: 08-03-2022 take 1 tablet by brendan once daily at bedtime atorvastatin 20 mg Tab 20 mg = 1 tab(s), Oral, Once a day (at bedtime), # 90 tab(s), Refills(s) 1, Pharmacy: [facility], 179, cm, 06/28/22 9:21:00 EDT, Height/Length Dosing, 129, kg, 06/28/22 9:21:00 EDT, Weight Dosing Start Date: 08/03/22 Status: Ordered Start: 01-25-2022 take 1 tablet by brendan once daily at bedtime atorvastatin 20 mg Tab 20 mg = 1 tab(s), Oral, Once a day (at bedtime), # 90 tab(s), Refills(s) 1, Pharmacy: [facility] #[id number], 178, cm, 12/22/21 10:58:00 EST, Height/Length Dosing, [...] day(s), # 6 tab(s), Refills(s) 0, Pharmacy: [facility], 177, cm, 03/10/24 18:16:00 EDT, Height/Length Dosing, 128.6, kg, 03/10/24 18:16:00 EDT, Weight Dosing Start Date: 03/10/24 Stop Date: 03/15/24 Status: Ordered benzonatate 200 mg oral capsule (7 sources) Non-narcotic Antitussive Start: 03-21-2024 End: 03-31-2024 [...] tab(s), Oral, Daily, 90 tab(s), Refill(s) 1, [id number], 178, cm, 12/22/21 10:58:00 EST, Height/Length Dosing, 127.4, kg, 12/22/21 10:58:00 EST, Weight Dosing Start Date: 01/25/22 Status: Ordered take 1 tablet by brendan once daily bisoprolol-hydrochlorothiazide (ZIAC) 5- 6.25 mg per tablet Take 1 tablet by mouth daily . 0 Active brompheniramine maleate 0.4 mg/ml / dextromethorphan hydrobromide 2 mg/ml / pseudoephedrine hydrochloride 6 mg/ml oral solution (6 sources) alpha-Adrenergic Agonist, Uncompetitive I-wkpqys-A-aspartate Receptor Antagonist, Sigma-1 Agonist Start: 03-25-2024 take 5 mL by mouth four times daily for cough and congestion Bromfed DM oral syrup 5 mL, Oral, QID for cough and congestion, 200 mL, Refill(s) 0, [facility], 177, cm, 03/24/24 22:52:00 EDT, Height/Length Dosing, 128, kg, 03/24/24 22:52:00 EDT, Weight Dosing Start Date: 03/25/24 Status: Ordered 60 actuat budesonide 0.16 mg/actuat / formoterol fumarate 0.0045 mg/actuat metered dose inhaler (8 sources) Corticosteroid, beta2-Adrenergic Agonist Start: 07-09-2020 Symbicort [...] day(s), # 20 cap(s), Refills(s) 0, Pharmacy: [facility], 177, cm, 03/21/24 14:44:00 EDT, Height/Length [...] tablet (20 sources) Serotonin Reuptake Inhibitor Start: 10-13-2021 take 1 tablet by mouth once daily citalopram 20 mg Tab 20 mg = 1 tab(s), Oral, Daily, # 90 tab(s), Refills(s) 3, Pharmacy: [facility], 177, cm, 04/08/24 13:20:00 EDT, Height/Length Dosing, 125.7, kg, 04/08/24 13:18:00 EDT, Weight Dosing Start Date: 05/01/24 Status: Ordered clindamycin 300 mg oral capsule (6 sources) Lincosamide Antibacterial Start: 04-02-2024 End: 04-12-2024 take 1 capsule by mouth every six hours clindamycin 300 mg oral cap 300 mg = 1 cap(s), Oral, q6hr, X 10 day(s), # 40 cap(s), Refills(s) 0, Pharmacy: [id number], 177, cm, 03/24/24 22:52:00 EDT, Height/Length Dosing, [...] Ordered docusate sodium 100 mg oral capsule (19 sources) Start: 03-29-2023 take 1 capsule by mouth twice daily Colace 100 mg Cap 100 mg = 1 cap(s), Oral, BID, # 20 cap(s), Refills(s) 0, Pharmacy: [facility], 177, cm, 05/16/23 13:32:00 EDT, Height/Length Dosing, 127, kg, 05/16/23 13:31:00 EDT, Weight Dosing Start Date: 05/16/23 Status: Ordered doxycycline hyclate 100 mg oral capsule (3 sources) Tetracycline- class Drug Start: 10-17-2023 take 1 capsule by mouth twice daily doxycycline hyclate 100 mg Cap 100 mg = 1 cap(s), Oral, BID, # 20 cap(s), Refills(s) 0, Pharmacy: [facility], 178, cm, 10/17/23 14:51:00 EST, Height/Length Dosing, 127, kg, 10/17/23 14:51:00 EST, Weight Dosing Start Date: 10/17/23 Status: Ordered Start: 01-19-2023 End: 01-26-2023 take 1 capsule by mouth twice daily doxycycline hyclate 100 mg Cap 100 mg = 1 cap(s), Oral, BID, X 7 day(s), # 14 cap(s), Refills(s) 0, Pharmacy: [facility], 179, cm, 01/19/23 16:50:00 EDT, Height/Length [...] Daily, # 90 cap(s), Refills(s) 3, Pharmacy: [facility], 177, cm, 12/10/23 18:47:00 EST, Height/Length Dosing, 124, kg, 12/10/23 18:47:00 EST, Weight Dosing Start Date: 02/13/24 Status: Ordered DULoxetine 30 mg Cap-EC (1 source) Start: 01-25-2022 take 1 capsule by mouth once daily DULoxetine 30 mg Cap-EC 30 mg = 1 cap(s), Oral, Daily, # 90 cap(s), Refills(s) 1, Pharmacy: [facility][id number], 178, cm, 12/22/21 10:58:00 EST, Height/Length Dosing, 127.4, kg, 12/22/21 10:58:00 EST, Weight Dosing Start Date: 01/25/22 Status: Ordered 168 hr estradiol 0.96555 mg/hr transdermal system (20 sources) Estrogen estradiol [...] Date: 04/13/20 Status: Ordered fluticasone / vilanterol (19 sources) Corticosteroid, beta2-Adrenergic Agonist Start: 10-12-2023 take 1 puff(s) by inhalation once daily Breo Ellipta 100 mcg-25 mcg inhalation powder 1 puff(s), Inhalation, Daily, 1 EA, Refill(s) 11, 30 dose unit, [facility], 177, cm, 05/16/23 13:32:00 EDT, Height/Length Dosing, 127, kg, 05/16/23 13:31:00 EDT, Weight Dosing Start Date: 10/12/23 Status: Ordered Breo Ellipta 100 -25 MCG/ACT aerosol powder Active hydroCHLOROthiazide 12.5 mg oral capsule (20 sources) Thiazide Diuretic Start: 08-22-2022 End: 08-17-2023 take 1 capsule by mouth once daily hydrochlorothiazide 12.5 mg Cap See Instructions, TAKE 1 CAPSULE BY MOUTH DAILY, # 90 cap(s), Refills(s) 4, Pharmacy: [facility], 172.7, cm, 08/19/24 15:46:00 EDT, Height/Length Dosing, 120.7, kg, 08/19/24 15:46:00 EDT, Weight Dosing Start Date: 09/30/24 Status: Ordered levothyroxine sodium 0.137 mg oral tablet (20 [...] DAY, # 90 tab(s), Refills(s) 4, Pharmacy: [facility], 177, cm, 05/12/24 19:05:00 EDT, Height/Length Dosing, 125, kg, 05/12/24 18:58:00 EDT, Weight Dosing Start Date: 07/30/24 Status: Ordered Start: 01-25-2022 take 1 tablet by brendan once daily levothyroxine 137 mcg (0.137 mg) Tab 137 microgram = 1 tab(s), Oral, Daily, # 90 tab(s), Refills(s) 1, Pharmacy: [facility][id number], 178, cm, 12/22/21 10:58:00 EST, Height/Length Dosing, 127.4, kg, 12/22/21 10:58:00 EST, Weight Dosing Start Date: 01/25/22 Status: Ordered take 1 tablet by brendan once daily levothyroxine (LEVO-T) 137 MCG tablet Take 137 mcg by mouth once daily . 0 Active losartan potassium 50 mg oral tablet (20 sources) Angiotensin 2 Receptor Miki Start: 04-27-2023 losartan (Cozaar) 50 MG tablet 04/27/2023 Active Start: 08-17-2022 take 1 tablet by brendan twice daily losartan 50 mg Tab 50 mg = 1 tab(s), Oral, BID, # 180 tab(s), Refills(s) 3, Pharmacy: [facility], 179, cm, 08/12/22 12:43:00 EDT, Height/Length Dosing, 129, kg, 08/12/22 12:43:00 EDT, Weight Dosing Start Date: 08/17/22 Status: Ordered Start: 08-07-2022 take 1 tablet by brendan twice daily losartan 50 mg Tab 50 mg = 1 tab(s), Oral, BID, # 60 tab(s), Refills(s) 5, Pharmacy: [facility] #[id number], 179, cm, 06/28/22 9:21:00 EDT, Height/Length Dosing, 129, kg, 06/28/22 9:21:00 EDT, Weight Dosing Start Date: 08/07/22 Status: Ordered Start: 07-19-2022 take 1 tablet by brendan th once daily losartan 50 mg Tab 50 mg = 1 tab(s), Oral, Daily, # 30 tab(s), Refills(s) 5, Pharmacy: [facility] #[id number], 179, cm, 06/28/22 9:21:00 EDT, Height/Length Dosing, 129, kg, 06/28/22 9:21:00 EDT, Weight Dosing Start Date: 07/19/22 Status: Ordered Start: 06-28-2022 take 1 tablet by brendan once daily losartan 25 mg Tab 25 mg = 1 tab(s), Oral, Daily, # 30 tab(s), Refills(s) 5, Pharmacy: [facility], 179, cm, 06/28/22 9:21:00 EDT, Height/Length Dosing, 129, kg, 06/28/22 9:21:00 EDT, Weight Dosing Start Date: 06/28/22 Status: Ordered methylPREDNISolone 4 mg oral tablet (6 sources) Corticosteroid Start: 03-18-2024 End: 03-24-2024 Medrol Dosepack 4 mg Tab = 1 packet(s), Oral, As Directed, as directed on package labeling, X 6 day(s), # 21 tab(s), Refills(s) 0, Pharmacy: [facility], 177, cm, 03/10/24 18:16:00 EDT, Height/Length [...] Refills(s) 1, Pharmacy: [facility] #[id number], 178, cm, 12/22/21 10:58:00 EST, Height/Length Dosing, 127.4, kg, 12/22/21 10:58:00 EST, Weight Dosing Start Date: 01/25/22 Status: Ordered take 1 tablet by brendan once daily montelukast (SINGULAIR) 10 mg tablet Take 10 mg by mouth nightly . 0 Active multivitamin (THERAGRAN) per tablet (20 sources) take 1 tablet by mouth once daily multivitamin (THERAGRAN) per tablet Take 1 tablet by mouth daily . 0 Active mupirocin 20 mg/ml topical cream (20 sources) RNA Synthetase Inhibitor Antibacterial Start: 04-11-20 mupirocin Top 2% Crm 1 [place], Topical, [...] Start Date: 04/11/20 Status: Ordered Nebulizer Machine (18 sources) Start: 09-28-2022 Nebulizer PRX Nebulizer Machine, See Instructions, 1 EA, 0, use with medication for inhalaiton dx.J45.41, [facility], [facility], 179, cm, 09/27/22 13:30:00 EST, Height/Length Dosing, 130, kg, 09/27/22 13:30:00 EST, Weight Dosing Start Date: 09/28/22 Status: Ordered Nebulizer machine tubing/ kit (18 sources) Start: 09-28-2022 Nebulizer mach ine tubing/ kit Nebulizer machine tubing/ kit, See Instructions, 1 EA, 0, use with nebulizer medication dx. J45.41, [facility], [facility], 179, cm, 09/27/22 13:30:00 EST, [...] Active Start: 07-13-2022 take 1 capsule by [facility] once daily omeprazole 20 mg Cap-DR 20 mg = 1 cap(s), Oral, Daily, # 90 cap(s), Refills(s) 1, Pharmacy: [facility], 179, cm, 06/28/22 9:21:00 EDT, Height/Length Dosing, 129, kg, 06/28/22 9:21:00 EDT, Weight Dosing Start Date: 07/13/22 Status: Ordered Start: 03-27-2022 take 1 capsule by [facility] once daily omeprazole 20 mg Cap-DR 20 mg = 1 cap(s), Oral, Daily, # 90 cap(s), Refills(s) 1, Pharmacy: [facility] #[id number], 178, cm, 03/14/22 10:26:00 EDT, Height/Length Dosing, 126.9, kg, 03/14/22 10:26:00 EDT, Weight Dosing Start Date: 03/27/22 Status: Ordered take 1 capsule by [facility] once daily omeprazole (PRILOSEC) 20 MG capsule Take 20 mg by mouth daily . 0 Active omeprazole 20 mg Cap-DR (2 sources) Start: 10-13-2021 take 1 capsule by mouth once daily omeprazole 20 mg Cap-DR 20 mg = 1 cap(s), Oral, Daily, # 90 cap(s), Refills(s) 1, Pharmacy: [facility][id number], 178, cm, 09/13/21 10:38:00 EST, Height/Length Dosing, 130.6, kg, 09/13/21 10:28:00 EST, Weight Dosing Start Date: 10/13/21 Status: Ordered 24 hr oxybutynin chloride 15 mg extended release oral tablet (20 sources) Cholinergic Muscarinic Antagonist Start: 05-28-2024 take 1 tablet by mouth once daily oxybutynin 15 mg ER Tab 15 mg = 1 tab(s), Oral, Daily, # 90 tab(s), Refills(s) 4, Pharmacy: [facility], 177, cm, 05/12/24 19:05:00 EDT, Height/Length Dosing, 125, kg, 05/12/24 18:58:00 EDT, Weight Dosing Start Date: 05/28/24 Status: Ordered Start: 10-10-2023 take 1 tablet by brendan th once daily oxybutynin 15 mg ER Tab 15 mg = 1 tab(s), Oral, Daily, # 90 tab(s), Refills(s) 1, Pharmacy: [facility], 177, cm, 05/16/23 13:32:00 EDT, Height/Length Dosing, 127, kg, 05/16/23 13:31:00 EDT, Weight Dosing Start Date: 10/10/23 Status: Ordered Start: 05-01-2023 oxybutynin XL (Ditropan-XL) 15 MG 24 hr tablet 05/01/2023 Active Start: 12-20-2022 take 1 tablet by brendan th once daily oxybutynin 15 mg ER Tab 15 mg = 1 tab(s), Oral, Daily, # 90 tab(s), Refills(s) 1, Pharmacy: [facility], 179, cm, 09/27/22 13:30:00 EST, Height/Length Dosing, 130, kg, 09/27/22 13:30:00 EST, Weight Dosing Start Date: 12/20/22 Status: Ordered Start: 04-17-2022 take 1 tablet by brendan th once daily oxybutynin 15 mg ER Tab 15 mg = 1 tab(s), Oral, Daily, # 90 tab(s), Refills(s) 1, Pharmacy: [facility] #[id number], 178, cm, 03/14/22 10:26:00 EDT, Height/Length Dosing, 126.9, kg, 03/14/22 10:26:00 EDT, Weight Dosing Start Date: 04/17/22 Status: Ordered Start: 01-11-2022 take 1 tablet by brendan once daily oxybutynin 15 mg ER Tab 15 mg = 1 tab(s), Oral, Daily, # 90 tab(s), Refills(s) 1, Pharmacy: [facility] #[id number], 178, cm, 12/22/21 10:58:00 EST, Height/Length Dosing, 127.4, kg, 12/22/21 10:58:00 EST, Weight Dosing Start Date: 01/11/22 Status: Ordered take 1 tablet by brendan once daily oxybutynin (DITROPAN) 5 MG tablet Take 5 mg by mouth daily . 0 Active take 1 tablet by brendan th three times daily oxybutynin (DITROPAN) 5 MG tablet Take 5 mg by mouth 3 (three) times a day . 0 Active pantoprazole 40 mg delayed release oral tablet (1 source) Proton Pump Inhibitor Start: 06-23-2022 take 1 tablet by mouth once daily pantoprazole 40 mg Oral EC Tab 40 mg = 1 tab(s), Oral, Daily, # 90 tab(s), Refills(s) 1, Pharmacy: [facility], 179, cm, 05/18/22 15:39:00 EDT, Height/Length Dosing, 129, kg, 05/18/22 15:39:00 EDT, Weight Dosing Start Date: 06/23/22 Status: Ordered permethrin 50 mg/ml topical cream (10 sources) Pyrethroid Start: 04-08-2024 permethrin (Elimite) 5 % cream apply topically once as directed 04/08/2024 Active Start: 04-08-2024 permethrin Top 5% Crm 1 [place], Topical, Once, 60 gram, Refill(s) 0, [facility], 177, cm, 04/08/24 13:20:00 EDT, Height/Length Dosing, 125.7, kg, 04/08/24 13:18:00 EDT, Weight Dosing Start Date: 04/08/24 Status: Ordered predniSONE 20 mg oral tablet (3 sources) Start: 03-07-2024 End: 03-14-2024 take 2 tablets by mouth once daily predniSONE 20 mg Tab 40 mg = 2 tab(s), Oral, Daily, X 7 day(s), # 14 tab(s), Refills(s) 0, Pharmacy: [facility], 177, cm, 12/10/23 18:47:00 EST, Height/Length [...] days, # 12 tab(s), Refills(s) 0, Pharmacy: [facility], 179, cm, 08/12/22 12:43:00 EDT, Height/Length [...] DAILY, # 180 cap(s), Refills(s) 4, Pharmacy: [facility], 177, cm, 05/12/24 19:05:00 EDT, Height/Length Dosing, 125, kg, 05/12/24 18:58:00 EDT, Weight Dosing Start Date: 07/02/24 Status: Ordered Start: 12-31-2023 take 1 capsule by [facility] twice daily propranolol 80 mg Cap-ER 80 mg = 1 cap(s), Oral, BID, # 180 cap(s), Refills(s) 1, Pharmacy: [facility], 177, cm, 12/10/23 18:47:00 EST, Height/Length Dosing, 124, kg, 12/10/23 18:47:00 EST, Weight Dosing Start Date: 12/31/23 Status: Ordered Start: 06-18-2023 take 1 capsule by [facility] twice daily propranolol 80 mg Cap-ER 80 mg = 1 cap(s), Oral, BID, # 180 cap(s), Refills(s) 1, Pharmacy: [facility], 177, cm, 05/16/23 13:32:00 EDT, Height/Length Dosing, 127, kg, 05/16/23 13:31:00 EDT, Weight Dosing Start Date: 06/18/23 Status: Ordered Start: 05-01-2023 propranolol LA (Inderal LA) 80 MG 24 hr capsule 05/01/2023 Active Start: 12-20-2022 take 1 capsule by [facility] twice daily propranolol 80 mg Cap-ER 80 mg = 1 cap(s), Oral, BID, # 180 cap(s), Refills(s) 1, Pharmacy: [facility], 179, cm, 09/27/22 13:30:00 EST, Height/Length Dosing, 130, kg, 09/27/22 13:30:00 EST, Weight Dosing Start Date: 12/20/22 Status: Ordered Start: 07-13-2022 take 1 capsule by [facility] twice daily propranolol 80 mg Cap-ER 80 mg = 1 cap(s), Oral, BID, # 60 cap(s), Refills(s) 5, Pharmacy: [facility], 179, cm, 06/28/22 9:21:00 EDT, Height/Length Dosing, 129, kg, 06/28/22 9:21:00 EDT, Weight Dosing Start Date: 07/13/22 Status: Ordered Start: 04-11-2022 take 1 capsule by [facility] twice daily propranolol 80 mg Cap-ER 80 mg = 1 cap(s), Oral, BID, # 180 cap(s), Refills(s) 1, Pharmacy: [facility] #[id number], 178, cm, 03/14/22 10:26:00 EDT, Height/Length Dosing, 126.9, kg, 03/14/22 10:26:00 EDT, Weight Dosing Start Date: 04/11/22 Status: Ordered Start: 04-11-2022 take 1 capsule by [facility] once daily propranolol 80 mg Cap-ER 80 mg = 1 cap(s), Oral, Daily, # 90 cap(s), Refills(s) 1, Pharmacy: [facility] #[id number], 178, cm, 03/14/22 10:26:00 EDT, Height/Length Dosing, 126.9, kg, 03/14/22 10:26:00 EDT, Weight Dosing Start Date: 04/11/22 Status: Ordered sulfamethoxazole 800 mg / trimethoprim 160 mg oral tablet (5 sources) Dihydrofolate Reductase Inhibitor Antibacterial, Sulfonamide Antimicrobial Start: 05-16-2023 End: 05-31-2023 Bactrim D.S. 800 mg-160 mg Tab 1 tab(s), Oral, BID for 14 day(s), 28 tab(s), Refill(s) 0, [facility], 177, cm, 05/16/23 13:32:00 EDT, Height/Length [...] relief, # 9 tab(s), Refills(s) 3, Pharmacy: [facility], 177, cm, 12/10/23 18:47:00 EST, Height/Length [...] relief, # 9 tab(s), Refills(s) 0, Pharmacy: [facility] #37, 179, cm, 01/19/23 16:50:00 EDT, Height/Length [...] puff(s), Inhalation, BID, 3 EA, Refill(s) 1, [facility], 179, cm, 05/18/22 15:39:00 EDT, Height/Length Dosing, 129, kg, 05/18/22 15:39:00 EDT, Weight Dosing Start Date: 06/08/22 Status: Ordered Start: 07-11-2021 take 2 puff(s) by in halation twice daily Symbicort 160/4.5 inhalation aerosol with adapter 2 puff(s), Inhalation, BID, 3 EA, Refill(s) 1, [facility], 178, cm, 07/11/21 10:05:00 EDT, [...] 0, 1-2 po q 4 prn pain, [facility], 177, cm, 05/16/23 13:32:00 EDT, Height/Length Dosing, 127, kg, 05/16/23 13:31:00 EDT, Weight Dosing Start Date: 05/16/23 Status: Ordered Start: 03-29-2023 take 1-2 tablets by mouth every four hours as needed for pain Percocet 5 mg-325 mg oral tablet See Instructions, 50 tab(s), Refill(s) 0, Take one to two every 4 hours as needed for pain., [id number], 177, cm, 05/16/23 13:32:00 EDT, Height/Length Dosing, 127, kg, 05/16/23 13:31:00 EDT, Weight Dosing Start Date: 05/17/23 Status: Ordered diclofenac sodium 75 mg delayed release oral tablet (20 sources) Nonsteroidal Anti-inflammatory Drug Start: 08-19-2024 diclofenac sodium 75 mg Oral EC Tab 60 EA, 0 Refill(s), TAKE 1 TABLET BY MOUTH TWICE DAILY, Refills(s) 0 Start Date: 08/19/24 Status: Ordered Start: 11-29-2022 take 1 tablet by brendan th twice daily diclofenac sodium 75 mg Oral EC Tab 75 mg = 1 tab(s), Oral, BID, # 180 tab(s), Refills(s) 3, Pharmacy: [id number], 177, cm, 12/10/23 18:47:00 EST, Height/Length Dosing, 124, kg, 12/10/23 18:47:00 EST, Weight Dosing Start Date: 12/25/23 Status: Ordered fluconazole 150 mg oral tablet (20 sources) Azole Antifungal Start: 04-02-2024 take 1 tablet by mouth once fluconazole 150 mg Tab 150 mg = 1 tab(s), Oral, Once, one tab to be taken once, # 1 tab(s), Refills(s) 0, Pharmacy: [id number], 177, cm, 03/24/24 22:52:00 EDT, Height/Length Dosing, 128, kg, 03/24/24 22:52:00 EDT, Weight Dosing Start Date: 04/02/24 Status: Ordered Start: 03-24-2024 take 1 tablet by mouth once fl uconazole 150 mg Tab 150 mg = 1 tab(s), Oral, Once, one tab to be taken once, # 1 tab(s), Refills(s) 0, Pharmacy: [id number], 177, cm, 03/21/24 14:44:00 EDT, Height/Length Dosing, 128.6, kg, 03/21/24 14:47:00 EDT, Weight Dosing Start Date: 03/24/24 Status: Ordered Start: 03-29-2023 fluconazole (D iflucan) 150 MG tablet TAKE 1 TABLET BY MOUTH EVERY 3 DAYS NEEDED for post-op yeast problems 03/29/2023 Active Start: 01-19-2023 take 1 tablet by mouth once Di flucan 150 mg Tab 150 mg = 1 tab(s), Oral, Once, 1 tab now and 1 after antibiotics if needed, # 2 tab(s), Refills(s) 0, Pharmacy: [id number], 179, cm, 01/19/23 16:50:00 EDT, Height/Length Dosing, 133.5, kg, 01/19/23 16:50:00 EDT, Weight Dosing Start Date: 01/19/23 Status: Ordered Start: 12-22-2021 take 1 tablet by mouth once fl uconazole 150 mg Tab 150 mg = 1 tab(s), Oral, Once, # 1 tab(s), Refills(s) 1, Pharmacy: [id number], 178, cm, 12/22/21 10:58:00 EST, Height/Length Dosing, 127.4, kg, 12/22/21 10:58:00 EST, Weight Dosing Start Date: 12/22/21 Status: Ordered fluticasone (20 sources) Corticosteroid Start: 05-22-2024 take 2 spray(s) nasal route once daily fluticasone (VERAMYST) 27.5 mcg/actuation nasal spray Instill 2 sprays into each nostril daily . 0 Active Nasacort Allergy 24HR nasal spray (2 sources) Start: 01-25-2021 Nasacort Aller gy 24HR nasal spray 110 mcg, 2 spray(s), Nasal, Daily, 3 EA, Refill(s) 1, [id number], 178, cm, 12/16/20 10:55:00 EST, Height/Length Dosing, 125, kg, 12/16/20 10:55:00 EST, Weight Dosing Start Date: 01/25/21 Status: Ordered ProAir HFA 90 mcg/inh inhalation aerosol (8 sources) Start: 08-09-2022 take 1 dose by inhalation every six hours ProAir HFA 90 mcg/inh inhalation aerosol 2 puff(s), Inhalation, q6hr for wheezing, 1 EA, Refill(s) 1, [facility], 179, cm, 06/28/22 9:21:00 EDT, Height/Length Dosing, 129, kg, 06/28/22 9:21:00 EDT, Weight Dosing Start Date: 08/09/22 Status: Ordered Start: 07-11-2021 take 2 puff(s) by in halation every six hours for wheezing ProAir HFA 90 mcg/inh inhalation aerosol 2 puff(s), Inhalation, q6hr for wheezing, 1 EA, Refill(s) 1, [facility], 178, cm, 07/11/21 10:05:00 EDT, Height/Length Dosing, 127, kg, 07/11/21 10:05:00 EDT, Weight Dosing Start Date: 07/11/21 Status: Ordered triamcinolone acetonide 0.055 mg/actuat metered dose nasal spray (20 sources) Corticosteroid Start: 01-25-2021 Nasacort Aller gy 24HR nasal spray 110 mcg, 2 spray(s), Nasal, Daily, 3 EA, Refill(s) 1, [id number], 178, cm, 12/16/20 10:55:00 EST, Height/Length Dosing, [...] Problem Classification Problem Date Documented Date Episodic/Chronic Administrative/socia l admission (3 sources) Reduced mobility; Translations: [Other reduced mobility] Onset: 08-19-20 Episodic Asthma (20 sources) Asthma; Translations: [Unspecified asthma, uncomplicated] Onset: 03-13-20 Resolved : 08-05-20 Chronic Cataract (1 source) Artificial lens present; Translations: [Presence of intraocular lens] 07-29-2024 Chronic Chronic kidney disease (10 sources) Chronic kidney disease stage 3A ; Translations: [Chronic kidney disease, stage 3a] Onset: 05-10-20 Chronic Deficiency and other anemia (1 source) Iron deficiency anemia 05-20-2019 Episodic Diabetes mellitus with complications (10 sources) Complication due to diabetes mellitus; Translations: [Type 2 diabetes mellitus with other specified complication] Onset: 05-10-20 Chronic Diabetes mellitus without complication (20 sources) Diabetes mellitus; Translations: [Type 2 diabetes [...] Chronic Hypertension with complications and secondary hypertension (9 sources) Chronic kidney disease due to hypertension; [...] unspecified knee] Onset: 05-16-20 Chronic Menopausal disorders (8 sources) Primary ovarian failure; Translations: [Other primary ovarian failure] Onset: 05-10-20 Chronic Mood disorders (20 sources) Major depressive disorder; Translations: [Major depressive disorder, single episode, unspecified] Onset: 03-13-20 Resolved : 03-31-20 Chronic Nonspecific chest pain (10 sources) Chest pain; Translations: [Other chest pain] Onset: 04-25-20 Episodic Nutritional deficiencies (13 sources) Decreased vitamin D 12-10-2023 Chronic Osteoarthritis (20 sources) Osteoarthritis of knee; Translations: [Unilateral primary osteoarthritis, left knee] Onset: 03-15-20 Chronic Other aftercare (5 sources) Patient encounter status; Translations: [Aftercare following [...] of feet] Chronic Other connective tissue disease (9 sources) Artificial knee joint present; Translations: [Presence of right artificial knee joint] Onset: 04-05-20 Chronic Other diseases of bladder and urethra (20 sources) Detrusor overactivity; Translations: [Overactive bladder] Onset: 03-13-20 22 03-06-2021 Chronic Other gastrointestinal disorders (3 sources) Slow transit constipation; Translations: [Slow transit constipation] Onset: 09-30-20 Episodic Other nervous system disorders (5 sources) Neuropathy; [...] foot; Translations: [Charcot's joint of foot] Onset: 07-13-2007-13-2020 Chronic Other non-traumatic joint disorders (20 sources) [...] [Body mass index (BMI) 40.0-44.9, adult] Onset: 03-14-20 22 03-07-2021 Chronic Other nutritional; endocrine; and metabolic disorders (20 sources) Morbid obesity; Translations: [Morbid (severe) obesity due to excess calories] Onset: 03-13-20 22 05-16-2021 Chronic Other nutritional; endocrine; and metabolic disorders (1 source) Obese class II; Translations: [Body mass index (BMI) 39.0-39.9, adult] Onset: 12-10-19 Chronic Other nutritional; endocrine; and metabolic disorders (1 source) Body mass index 30+ - obesity 12-10-2023 Chronic Other nutritional; endocrine; and metabolic disorders (13 sources) Obesity caused by energy imbalance 12-10-2023 [...] (20 sources) Congenital hypothyroidism; Translations: [Hypothyroidism] Onset: 03-13-2011-18-2020 Chronic Unclassified (20 sources) Patient encounter status Resolved : 06-12-2008-25-2019 Unclassified (4 sources) Clinical finding 08-19-2024 Past or Other Problems Problem Classification Problem Date Documented Date Episodic/Chronic Acquired foot deformities (1 source) Flat foot [pes planus] (acquired), right foot; Translations: [FLAT FOOT PES PLANUS ACQ RT FOOT] Onset: 08-05-2022 Episodic Joint disorders and dislocations; trauma-related (5 sources) Dislocation of patellofemoral joint; Translations: [Unspecified [...] Onset: 08-02-2022 Episodic Other non-traumatic joint disorders (7 sources) Pain in left knee; Translations: [Pain [...] Resolved: 05-20-2019 08-25-2019 Episodic Residual codes; unclassified (5 sources) History of arthroscopy of knee joint; Translations: [Other specified postprocedural states] Onset: 06-19-2023 06-19-2023 Episodic Unclassified (20 sources) Entire nasal sinus (body structure) Resolved: 08-13-2012 05-19-2019 Comment on above: sinus problems, with nasal congestion Unclassified (20 sources) Entire temporomandibular joint (body structure) 04-06-2015 Results Test Name Value Interpretation Reference Range Facil [facility] 10-20-20 [facility] Case Information Case Priority: None Programs: -- Referral Source: Senior Civil Engineer Referral Reason: Care coordination Case Type: Transition Care Management Risk Score: -- Case Status: Enrolled (September 26, 2024) Date Assigned: September 26, 2024 Assigned By: Mary Kate Harris RN Date Enrolled: September 26, 2024 Assigned Primary Personnel: Joann Hinton R.N. Assigned Secondary Personnel: -- Case Physician: SIRIA ARMENTA, Mara Ferrell Ongoing Allergic rhinitis due to pollen Asthma, moderate persistent Benign hypertension BMI 40.0-44.9, adult Charcot joint of right foot Chronic renal impairment, stage 3a Combined hyperlipidemia Constipation due to slow transit Controlled diabetes mellitus with diabetic polyneuropathy Depression, major, recurrent, in partial remission Detrusor instability of bladder Diabetes mellitus with renal manifestation Encounter for well adult exam with abnormal findings GERD (gastroesophageal reflux disease) Gout Hypothyroidism, congenital Impaired mobility and ADLs Left lumbar radiculopathy Low serum vitamin D Migraine headache Moderate persistent asthma with exacerbation Morbid obesity Osteoarthritis of left knee Ovarian failure Personal history of colonic polyps Renal disease, hypertensive benign Rotator cuff tear arthropathy of right shoulder Screening mammogram, encounter for TMJ syndrome Type 2 diabetes mellitus with hyperlipidemia Well adult exam Historical Acid reflux Actinic keratosis of left cheek Allergic rhinitis Asthma Asthma Asthma Class 1 obesity due to excess calories in adult Class 2 obesity due to excess calories in adult Dysesthesia Encounter for wellness examination Epicondylitis Fatigue Hyperlipidemia Hypertension Hypertension Hypertension Hypothyroid Nasal mucositis (ulcerative) Nasal sinus Obesity Other [...] congestion, sinus surgeries, Transforaminal epidural steroid injection. Home Medications Albuterol (Eqv-ProAir HFA) 90 mcg/inh inhalation aerosol, 2 puff(s), Inhalation, q6hr, 5 refills albuterol 0.083% Inh Mamie 3 mL, 0.083% - 3mL dosing units, Inhalation, q4hr, PRN Carla 24 Hour Allergy oral tablet, 180 mg= 1 tab(s), Oral, Daily atorvastatin 20 mg Tab, 20 mg= 1 tab(s), Oral, Once a day (at bedtime), 4 refills Breo Ellipta 100 mcg-25 mcg inhalation powder, 1 puff(s), Inhalation, Daily, 11 refills citalopram 20 mg Tab, 20 mg= 1 tab(s), Oral, Daily, 3 refills Colace 100 mg Cap, 100 mg= 1 cap(s), Oral, BID Daily Multiple Vitamins, 1 tab(s), Oral, Daily diclofenac sodium 75 mg Oral EC Tab duloxetine 30 mg oral delayed release capsule, 30 mg= 1 cap(s), Oral, Daily, 3 refills DuoNeb 2.5 mg-0.5 mg/3 mL Soln-Inh, 3 mL, Inhalation, QID, 2 refills fluconazole 150 mg Tab, 150 mg= 1 tab(s), Oral, Once fluticasone propionate hyd (more content not included)... Normal [facility] 10-13-20 [facility] Case Information Case Priority: None Programs: -- Referral Source: Senior Civil Engineer Referral Reason: Care coordination Case Type: Transition Care Management Risk Score: -- Case Status: Enrolled (September 26, 2024) Date Assigned: September 26, 2024 Assigned By: Mary Kate Harris RN Date Enrolled: September 26, 2024 Assigned Primary Personnel: Joann Hinton R.N. Assigned Secondary Personnel: -- Case Physician: SIRIA ARMENTA, Mara Ferrell Ongoing Allergic rhinitis due to pollen Asthma, moderate persistent Benign hypertension BMI 40.0-44.9, adult Charcot joint of right foot Chronic renal impairment, stage 3a Combined hyperlipidemia Constipation due to slow transit Controlled diabetes mellitus with diabetic polyneuropathy Depression, major, recurrent, in partial remission Detrusor instability of bladder Diabetes mellitus with renal manifestation Encounter for well adult exam with abnormal findings GERD (gastroesophageal reflux disease) Gout Hypothyroidism, congenital Impaired mobility and ADLs Left lumbar radiculopathy Low serum vitamin D Migraine headache Moderate persistent asthma with exacerbation Morbid obesity Osteoarthritis of left knee Ovarian failure Personal history of colonic polyps Renal disease, hypertensive benign Rotator cuff tear arthropathy of right shoulder Screening mammogram, encounter for TMJ syndrome Type 2 diabetes mellitus with hyperlipidemia Well adult exam Historical Acid reflux Actinic keratosis of left cheek Allergic rhinitis Asthma Asthma Asthma Class 1 obesity due to excess calories in adult Class 2 obesity due to excess calories in adult Dysesthesia Encounter for wellness examination Epicondylitis Fatigue Hyperlipidemia Hypertension Hypertension Hypertension Hypothyroid Nasal mucositis (ulcerative) Nasal sinus Obesity Other [...] congestion, sinus surgeries, Transforaminal epidural steroid injection. Home Medications Albuterol (Eqv-ProAir HFA) 90 mcg/inh inhalation aerosol, 2 puff(s), Inhalation, q6hr, 5 refills albuterol 0.083% Inh Mamie 3 mL, 0.083% - 3mL dosing units, Inhalation, q4hr, PRN Carla 24 Hour Allergy oral tablet, 180 mg= 1 tab(s), Oral, Daily atorvastatin 20 mg Tab, 20 mg= 1 tab(s), Oral, Once a day (at bedtime), 4 refills Breo Ellipta 100 mcg-25 mcg inhalation powder, 1 puff(s), Inhalation, Daily, 11 refills citalopram 20 mg Tab, 20 mg= 1 tab(s), Oral, Daily, 3 refills Colace 100 mg Cap, 100 mg= 1 cap(s), Oral, BID Daily Multiple Vitamins, 1 tab(s), Oral, Daily diclofenac sodium 75 mg Oral EC Tab duloxetine 30 mg oral delayed release capsule, 30 mg= 1 cap(s), Oral, Daily, 3 refills DuoNeb 2.5 mg-0.5 mg/3 mL Soln-Inh, 3 mL, Inhalation, QID, 2 refills fluconazole 150 mg Tab, 150 mg= 1 tab(s), Oral, Once fluticasone propionate hyd (more content not included)... Normal [facility] 10-06-20 [facility] Case Information Case Priority: None Programs: -- Referral Source: Senior Civil Engineer Referral Reason: Care coordination Case Type: Transition Care Management Risk Score: -- Case Status: Enrolled (September 26, 2024) Date Assigned: September 26, 2024 Assigned By: Mary Kate Harris RN Date Enrolled: September 26, 2024 Assigned Primary Personnel: Joann Hinton R.N. Assigned Secondary Personnel: -- Case Physician: SIRIA ARMENTA, Mara Ferrell Ongoing Allergic rhinitis due to pollen Asthma, moderate persistent Benign hypertension BMI 40.0-44.9, adult Charcot joint of right foot Chronic renal impairment, stage 3a Combined hyperlipidemia Constipation due to slow transit Controlled diabetes mellitus with diabetic polyneuropathy Depression, major, recurrent, in partial remission Detrusor instability of bladder Diabetes mellitus with renal manifestation Encounter for well adult exam with abnormal findings GERD (gastroesophageal reflux disease) Gout Hypothyroidism, congenital Impaired mobility and ADLs Left lumbar radiculopathy Low serum vitamin D Migraine headache Moderate persistent asthma with exacerbation Morbid obesity Osteoarthritis of left knee Ovarian failure Personal history of colonic polyps Renal disease, hypertensive benign Rotator cuff tear arthropathy of right shoulder Screening mammogram, encounter for TMJ syndrome Type 2 diabetes mellitus with hyperlipidemia Well adult exam Historical Acid reflux Actinic keratosis of left cheek Allergic rhinitis Asthma Asthma Asthma Class 1 obesity due to excess calories in adult Class 2 obesity due to excess calories in adult Dysesthesia Encounter for wellness examination Epicondylitis Fatigue Hyperlipidemia Hypertension Hypertension Hypertension Hypothyroid Nasal mucositis (ulcerative) Nasal sinus Obesity Other [...] congestion, sinus surgeries, Transforaminal epidural steroid injection. Home Medications Albuterol (Eqv-ProAir HFA) 90 mcg/inh inhalation aerosol, 2 puff(s), Inhalation, q6hr, 5 refills albuterol 0.083% Inh Mamie 3 mL, 0.083% - 3mL dosing units, Inhalation, q4hr, PRN Carla 24 Hour Allergy oral tablet, 180 mg= 1 tab(s), Oral, Daily atorvastatin 20 mg Tab, 20 mg= 1 tab(s), Oral, Once a day (at bedtime), 4 refills Breo Ellipta 100 mcg-25 mcg inhalation powder, 1 puff(s), Inhalation, Daily, 11 refills citalopram 20 mg Tab, 20 mg= 1 tab(s), Oral, Daily, 3 refills Colace 100 mg Cap, 100 mg= 1 cap(s), Oral, BID Daily Multiple Vitamins, 1 tab(s), Oral, Daily diclofenac sodium 75 mg Oral EC Tab duloxetine 30 mg oral delayed release capsule, 30 mg= 1 cap(s), Oral, Daily, 3 refills DuoNeb 2.5 mg-0.5 mg/3 mL Soln-Inh, 3 mL, Inhalation, QID, 2 refills fluconazole 150 mg Tab, 150 mg= 1 tab(s), Oral, Once fluticasone propionate hyd (more content not included)... Normal [facility] Reminderson 10-01-2024 Reminders Reminders -- From: Joann Hinton R.N. [place] [facility]; Joann Hinton R.N.; Sent: 10/01/2024 06:35:05 EST Show up: 10/01/2024 06:35:00 EST Subject: tcm #2 Due Date/Time: 10/07/2024 06:35:00 EST Reminder/Recall Normal [facility] Ambulatory Visit Summaryon 1 12-01-2023 Ambulatory Visit Summary Ambulatory Visit Summary LEVI SOFIA :1960 Visit Date:09/30/2024 Ambulatory Visit Instructions Your Diagnosis Charcot joint of right foot Impaired mobility and ADLs Controlled diabetes mellitus with diabetic polyneuropathy Chronic renal impairment, stage 3a Benign hypertension Asthma, moderate persistent Constipation due to slow transit Morbid obesity BMI 40.0-44.9, adult Your Care [...] 10 mg Tab) multivitamin (Daily Multiple Vitamins) omeprazole (omeprazole 20 mg Cap-DR) oxybutynin (oxybutynin 15 mg ER Tab) propranolol (propranolol 80 mg Cap-ER) sumatriptan (SUMAtriptan 100 mg Tab) Procedures Performed Total knee replacement (05/16/2023), Knee [...] Transforaminal epidural steroid injection. Discharge Vitals Temperature (Oral) 37 ???C Heart Rate (Peripheral) 78 Respiratory Rate 18 Blood Pressure 139/70 Height 172 cm Height 68 in Weight 120 kg Weight 264.554 lb BMI 40.56 What to do next Scheduled Follow-Up Appointments 2024 9:00 AM EDT With: Mara BEVERLY MD Where: [facility] [address] [place] [address]- 2024 11:00 AM EDT With: Where: [facility] [address] [place] [address]- You Need to Schedule the Following Appointments Follow Up with Mara BEVERLY MD, FAM When: Comments: see me in February Where: [address] [place] [address]- Medications What How Much When Instructions Unchanged albuterol (Albuterol (Eqv-ProAir HFA) 90 mcg/ inh inhalation aerosol) 2 Puffs Inhalation Every 6 hours Unchanged albuterol (albuterol 0.083% Inh Mamie 3 mL) 0.083% - 3mL dosing units Inhalation Every 4 hours as needed for as needed for wheezing Unchanged albuterol-ipratropi um (DuoNeb 2.5 mg-0.5 mg/ 3 mL Soln-Inh) 3 Milliliter Inhalation 4 times a day Unchanged atorvastatin (atorvastatin 20 mg Tab) 1 Tablets By Mouth Once a day (at bedtime) Unchanged citalopram (c (more content not included)... Normal [facility] Family Medicine Office/Clini c Noteon 09-30-2024 Family Medicine Office/Clinic Note Family Medicine Office/Clinic Note Chief Complaint ere for follow up from [facility], ankle surgery The patient presents for a hospitalization follow-up and general health maintenance. History of Present Illness The patient is a 64-year-old female presenting with a post-hospitalizatio n follow-up. She underwent Charcot foot surgery on September 02 at [facility] followed by rehabilitation at [facility] from September 04 to September 25. Reports that Dr. Johnson felt that she did very well without complications. During her stay, she experienced difficulty swallowing, for which omeprazole was prescribed and subsequently doubled. Asymptomatic now. Back to once daily dosing. Her asthma, known to be moderate persistent, showed no flares, and her blood pressure remained stable. She noted a history of obesity with a body mass index between 40.0-44.9, but her weight decreased from the 270s since the summer. Although finger-stick glucose monitoring was not conducted at the custodial, her diabetes, complicated by diabetic polyneuropathy, remains controlled through diet. The patient reported impaired mobility primarily due to the surgical intervention, and she adapted using a wheelchair at home. Additionally, she experienced leg swelling and calf pain briefly post-discharge, which she attributed to increased activity. Constipation was a significant issue during her custodial stay, having experienced just four bowel movements over 20 days, despite taking various laxatives. Previously enhanced for bowel management with stool softeners and MiraLAX, she has not resumed this regimen since returning home. She was advised on increasing dietary fiber and fluid intake to address constipation concerns. She is very reticent to eat prunes. Mood has been relatively upbeat. Family is very supportive Review of Systems PHQ Score Initial Depression Screen Score: 1 SCORE - Gastrointestinal: Reports difficulty swallowing during the custodial stay; reports leg swelling upon standing. - Respiratory: Denies asthma exacerbation. - Cardiovascular: Denies significant issues with blood pressure. - Musculoskeletal: Denies leg swelling and major calf pain post-hospitalizatio n except for one episode. - General: Reports weight loss since summer; denies significant weight changes since recent weighing in July. - Neurological: Denies increased foot pain post-surgery. Physical Exam Vitals & Measurements T: 37 ???C(Oral) HR: 78(Peripheral) RR: 18 BP: 139/70 SpO2: 97% HT: 68 in HT: 172 cm WT: 120 kg WT: 264.554 lb BMI: 40.56 Patient is sitting in a wheelchair accompanied by her older sister. Grossly normal hearing conjunctiva clear neck is thick but supple. Lungs are diminished but clear bilaterally cardiac regular rate and rhythm no murmur gallop or rub. Abdomen obese hyperactive bowel sounds nontender. Her right lower extremity is in a short cast from mid irving distally. There is no tenderness in the posterior calf with palpation range of motion of the knee is within normal limits. Her insight is good. Showing no agitation or irritability. integument is moderately pale. No bruising. Assessment/Plan 1. Charcot joint of right foot (M14.671: Charcot's joint, right ankle and foot) Postoperative recovery is progressing well. No significant pain reported. Continue non-weight bearing precautions and follow-up consultation with the surgical team scheduled. Always remain vigilant for any sign of DVT in the right lower calf. Try to maintain adequate range of motion in the knee since she is not able to dorsiflex or plantarflex the ankle with the current cast. 2. Impaired mobility and ADLs (Z74.09: Other reduced mobility) Addressed due to postoperative status. Reassess mobility as surgical recovery progresses. Provide supportive aids and physical therapy if needed. She is using a board to slide at home. Encouraged her to avoid any injury to the coccyx such as pressure ulcer. 3. Controlled diabetes mellitus with diabetic polyneuropathy (E11.42: Type 2 diabetes mellitus with diabetic polyneuropathy) Diabetes remains diet-controlled. Monitor blood glucose levels periodically and assess for any new neuropathic symptoms. Reinforce dietary management. 4. Chronic renal impairment, stage 3a (N18.31: Chronic kidney disease, stage 3a) Chronic renal status remains stable. Continue current management and monitor renal function regularly. Ensure control of comorbid conditions like hypertension and diabetes. 5. Benign hypertension (I10: Essential (primary) hypertension) [...] (Salt) Intake to 2000mg per day. -Use Moderatio (more content not included)... Normal [facility] Comment on above: Result Comment: Elec tronically Signed By: SIRIA ARMENTA, Mara\.br\Date and Time Signed: 09/30/24 19:10 EST Pathology study report docum entOrdered By: Javier Nixon on 09-05-2024 Pathology study [facility] Other Phone: Carl 09-02-2024 L Specimen: [id number] Received: 09/03/24 Status: FIDEL Devika Num: [id number] Spec Type: Surgical Subm Dr: Julio Johnson,[place], [place] Tissues: A Bone Fragments - Other than Path Fracture (RIGHT FOOT BONE) Procedures: HE, Gross/Micro L3, Decalcification Age/ Patient Sex Location Account Attending Physician Levi Sofia 64/F LABELL [id number] Julio Johnson DPM, MS SPEC NUM: [id number] RECD: 09/03/24 STATUS: FIDEL CREWS NUM: [id number] GILBERT: 09/02/[address] [facility] DR: Julio Johnson DPM, MS ENTERED: 09/03/24 [facility] DR: Alex,Lab SPEC TYPE: Surgical DEPT: ELDER BERRIOS ENTERED BY: [id number] RECV BY: [id number] ORDERED: HE, Gross/Micro L3, Decalcification ORDERED: HE, [...] reveal lazcano firm and uniform medullary bone. Slide Attendant sections are submitted in a single cassette after decalcification. (1, , [id number] A) Microscopic Description Microscopic examination is performed. Specimen: [id number] Received: 09/03/24 Status: FIDEL Crews Num: [id number] Spec Type: Surgical Subm Dr: Julio Johnson,DPSamson, [place] Tissues: A Bone Fragments - Other than Path Fracture (RIGHT FOOT BONE) Procedures: HE, Gross/Micro L3, Decalcification Patient: Levi Sofia [id number] (Continued) Specimen: [id number] Received: 09/03/24 (Continued) Signed (signatur e on file) Javier Nixon MD 09/05/24 1145 Specimen: [id number] Received: 09/03/24 Status: FIDEL Crews Num: [id number] Spec Type: Surgical Subm Dr: Julio Johnson,[place], [place] Tissues: A Bone Fragments - Other than Path Fracture (RIGHT FOOT BONE) Procedures: HE, Gross/Micro L3, Decalcification Patient: Levi Sofia [id number] (Continued) Specimen: [id number] Received: 09/03/24 (Continued) CPT Codes 24618, 33899 Specimen: [id number] Received: 09/03/24 Status: FIDEL Crews Num: [id number] Spec Type: Surgical Subm Dr: Julio Johnson,DPM, MS Tissues: A Bone Fragments - Other than Path Fracture (RIGHT FOOT BONE) Procedures: HE, Gross/Micro L3, Decalcification Patient: Levi Sofia [id number] (Continued) Signed (signatur e on file) Javier Nixon MD 09/05/24 1145 Normal [facility] Provider Letteron 08-21-2024 Provider Letter Provider Letter [address] [place] [address] [id number] August 21, 2024 LEVI SOFIA [address] [place] [address] : [address] Johnson: I appreciated [...] good response. I reviewed her laboratories from [facility] completed August 13. There is no anemia [...] regarding successful outcome. Sincerely: Mara Beverly MD,FAAFP [facility] Ambulatory Visit Summaryon 1 Ambulatory Visit Summary [...] foot Your Care Team Attending Physician - Mara [...] Follow-Up Appointments 2024 11:00 AM EDT Where: [place] [address] [place] [address]- You Need to Schedule the Following Appointments Follow Up with SIRIA ARMENTA, EVI Nicole When: Within 6 months Comments: staff call [facility] need her recent labs and EKG from 08/12/24 Where: [address] [place] [address]- Medications What How Much When Instructions Unchanged albuterol (Albuterol (Eqv-ProAir HFA) 90 mcg/ inh inhalation aerosol) 2 Puffs Inhalation Every 6 (more content not included)... Normal [facility] Ambulatory Visit Summary Ambulatory Visit Summary [...] Follow-Up Appointments 2024 11:00 AM EDT Where: [facility] [address] [place] [address]- You Need to Schedule the Following Appointments Follow Up with SIRIA ARMENTA, EVI Nicole When: Within 6 months Comments: staff call [facility] need her recent labs and EKG from 08/12/24 Where: [address] [place] [address]- Medications What How Much When Instructions Unchanged albuterol (Al (more content not included)... Normal [facility] Family Medicine Office/Clini c Noteon 08-19-2024 [...] thick but supple no obvious thyromegaly fair tazlina dentition with repairs oropharynx pink and moist [...] pain. No obvious crepitance in the shoulder bdr strength is intact. Very stooped posture. Assessment/Plan 1. Annual visit for general adult medical examination without abnormal findings (Z00.00: Encounter for general adult medical examination without abnormal findings) Patient is up-to-date with all general health maintenance. She will obtain flu vaccine and Prevnar 20 at the pharmacy. Ordered: 1125F Pain severity quantified; pain present A1c POC [id number] Advance care planning discussion documented in the [...] previously bee (more content not included)... Normal [facility] Comment on above: Result Comment: Elec [...] of clutter to prevent tripping and/or falling. [place] Advance Directives reviewed. Documents to be completed, [...] any sensitivity (more content not included)... Normal [facility] Comment on above: Result Comment: Elec tronically Signed By: SIRIA ARMENTA, Mara\.br\Date and Time Signed: 08/19/24 16:34 EDT\.br\Electronically Co-Signed By: Amanda JEFFERSON, Andra Luis\.br\Date and Time Co-Signed: 08/19/24 16:15 EDT Nonvisit Note - PTon 024 Nonvisit Note - PT Nonvisit Note - PT woke up and is not feeling well Normal [facility] XR Knee - left 3 [facility] Result: X-rays, permanently saved to the patient's record, are reviewed bilateral AP, lateral and sunrise views show stable position and alignment of the left knee prosthesis. No sign of loosening or infection or patellofemoral maltracking. The right knee has grade IV severe degenerative changes of the patellofemoral joint with moderate to severe degenerative changes of the medial joint. There is no fracture, dislocation, tumor or infection seen. [facility] XR Knee - right 3 [facility] Result: X-rays, permanently saved to the patient's record, are reviewed bilateral AP, lateral and sunrise views show stable position and alignment of the left knee prosthesis. No sign of loosening or infection or patellofemoral maltracking. The right knee has grade IV severe degenerative changes of the patellofemoral joint with moderate to severe degenerative changes of the medial joint. There is no fracture, dislocation, tumor or infection seen. [facility] Nonvisit Note - PTon 024 Nonvisit Note - PT Nonvisit Note - PT Chart reviewed with eval prepped for scheduled eval. KK Normal [facility] XR Knee - left 3 [facility] Study observation (narrative) [facility] XR Knee - right 3 [facility] Study observation (narrative) [facility] BD Bone Density DEXAon 05-18 BD [...] by: HENRIETTA Technologist: NICK De La Fuente [facility] MA Mamm Screen w/CAD if perf [...] VERY IMPORTANT TO YOUR HEALTH. THE CURRENT [place] [employer] AND N[employer] COMPREHENSIVE CANCER [...] Audie Cartagena MD Transcribed by: HENRIETTA Technologist: [facility] Assessment: BI-RADS Category 1-Negative Recommendation: Normal interval follow-up Normal [facility] U Microalbon 05-13-2024 Albumin DL <= 20 mg/L (U) [Mass/Vol] 1.7 mg/dL Normal 0.0-1.9 [facility] Comment on above: Performed By: #### 1 [id number] #### [facility] [address] [place] [address] U Protein/Creat Ratioon 04-22 Protein/Creatinine (U) [Ratio] 9.40 mg/gm Cr Normal .00-200.00 [facility] Comment on above: Performed By: #### 1 [id number] #### [facility] [address] [place] [address] U Creatinine 139.0 mg/dL Invalid Interpretation Code [facility] Comment on above: Performed By: #### 1 [id number] #### [facility] [address] [place] [address] Ur Total Protein 13.1 mg/dL Invalid Interpretation Code [facility] Comment on above: Performed By: #### 1 [id number] #### [facility] [address] [place] [address] Ambulatory Visit Summaryon 0 05-12-2024 Ambulatory Visit [...] ARMENTA, Farzad Elliott Where: [facility] Invalid Interpretation Code [address] [place] [address]- \.br\ Sunday 3:40 PM EDT \.br\ With: Mara BEVERLY MD\.br\ Where: [facility] Family Medicine Office/Clini c Noteon 05-12-2024 [...] or Farxiga with her renal insufficiency Ordered: [facility] [place] Ambulatory Referral 2. Type 2 diabetes mellitus with hyperlipidemia (E11.69: Type 2 diabetes mellitus with other specified complication) Continue current statin and must exercise great caution with dietary compliance. Dietary constraints reviewed to help reduce triglycerides Ordered: [facility] [place] Ambulatory Referral 3. Diabetes mellitus with renal manifestation (E11.29: Type 2 diabetes mellitus with other diabetic kidney complication) See #4 patient will set up diabetic eye exam. Ordered: [facility] [place] Ambulatory Referral 4. Chronic renal impairment, [...] 7. C (more content not included)... 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 Please add this test to blood drawn earlier today, thank you Performed By: #### 7 [id number] #### [facility] [address] [place] [address] Advance Beneficiary Notifica tionson 04-14-2024 Advance Beneficiary Notifications [id number]#1.00TIFF Normal [facility] CBC w/ Auto Diffon 4 Basophils/100 WBC (Bld) 1.3 % Normal 0.0-2.0 [facility] Comment on above: Performed By: #### 2 [id number] #### [facility] [address] [place] [address] Basophils/Leukocyte s Auto (Bld) [Pure # fraction] 0.1 E9/L Normal 0.0-0.2 [facility] Comment on above: Performed By: #### 2 [id number] #### [facility] [address] [place] [address] Eosinophils (Bld) [#/Vol] 0.2 E9/L Normal 0.0-0.5 [facility] Comment on above: Performed By: #### 2 570888 #### [facility] [address] [place] [address] Eosinophils/100 WBC (Bld) 3.8 % Normal 0.0-8.0 [facility] Comment on above: Performed By: #### 2 488855 #### [facility] [address] [place] [address] Erythrocyte distribution width (RBC) [Ratio] 14.8 % High 10.9-14.2 [facility] Comment on above: Performed By: #### 2 345891 #### [facility] [address] [place] [address] Hematocrit (Bld) [Volume fraction] 39.9 % Normal 34.0-46.0 [facility] Comment on above: Performed By: #### 2 358458 #### [facility] [address] [place] [address] Hemoglobin (Bld) [Mass/Vol] 13.7 g/dL Normal 12.0-16.0 [facility] Comment on above: Performed By: #### 2 047043 #### [facility] [address] [place] [address] Lymphocytes (Bld) [#/Vol] 2.1 E9/L Normal 1.0-4.0 [facility] Comment on above: Performed By: #### 2 362153 #### [facility] [address] [place] [address] Lymphocytes/100 WBC (Bld) 35.4 % Normal 14.0-50.0 [facility] Comment on above: Performed By: #### 2 835576 #### [facility] [address] [place] [address] MCH (RBC) [Entitic mass] 31.5 pg Normal 27.0-34.0 [facility] Comment on above: Performed By: #### 2 902310 #### [facility] [address] [place] [address] MCHC (RBC) [Mass/Vol] 34.2 g/dL Normal 31.4-36.0 [facility] Comment on above: Performed By: #### 2 702293 #### [facility] [address] [place] [address] MCV (RBC) [Entitic vol] 92.0 fL Normal 80.0-100.0 [facility] Comment on above: Performed By: #### 2 733750 #### [facility] [address] [place] [address] Monocytes (Bld) [#/Vol] 0.4 E9/L Normal 0.2-1.0 [facility] Comment on above: Performed By: #### 2 792493 #### [facility] [address] [place] [address] Neutrophils (Bld) [#/Vol] 3.0 E9/L Normal 2.0-7.5 [facility] Comment on above: Performed By: #### 2 568827 #### [facility] [address] [place] [address] Neutrophils/100 WBC (Bld) 52.2 % Normal 36.0-75.0 [facility] Comment on above: Performed By: #### 2 999599 #### [facility] [address] [place] [address] Platelet 251.0 E9/L Normal 150.0-500.0 [facility] Comment on above: Performed By: #### 2 861273 #### [facility] [address] [place] [address] Platelet mean volume (Bld) [Entitic vol] 8.7 fL Normal 6.4-10.8 [facility] Comment on above: Performed By: #### 2 [id number] #### [facility] [address] [place] [address] RBC (Bld) [#/Vol] 4.3 E12/L Normal 4.3-5.9 [facility] Comment on above: Performed By: #### 2 067828 #### [facility] [address] [place] [address] WBC corrected for nucl RBC Auto (Bld) [#/Vol] 5.8 E9/L Normal 4.0-11.0 [facility] Comment on above: Performed By: #### 2 149801 #### [facility] [address] [place] [address] CHEMISTRYOrdered By: SYSTEM SYSTEM on 04-14-2024 Albumin [...] 04-14-2024 Albumin [Mass/Vol] 4.2 g/dL Normal 3.3-5.0 [facility] Comment on above: Performed By: #### 2 263074 #### [facility] [address] [place] [address] Albumin/Globulin (S) [Mass conc ratio] 1.4 Normal 1.1-2.2 [facility] Comment on above: Performed By: #### 2 903469 #### [facility] [address] [place] [address] ALP [Catalytic activity/Vol] 75 Int._Unit/L Normal 21-98 [facility] Comment on above: Performed By: #### 2 871446 #### [facility] [address] [place] [address] ALT No additional P-5'-P [Catalytic activity/Vol] 23 Int._Unit/L Normal 6-46 [facility] Comment on above: Performed By: #### 2 [id number] #### [facility] [address] [place] [address] Anion gap [Moles/Vol] 13 mmol/L Normal 6-16 [facility] Comment on above: Performed By: #### 2 131485 #### [facility] [address] [place] [address] AST [Catalytic activity/Vol] 19 Int._Unit/L Normal 5-43 [facility] Comment on above: Performed By: #### 2 750187 #### [facility] [address] [place] [address] Bilirubin [Mass/Vol] 0.5 mg/dL Normal 0.0-1.1 [facility] Comment on above: Performed By: #### 2 408194 #### [facility] [address] [place] [address] Calcium [Mass/Vol] 10.0 mg/dL Normal 8.9-11.1 [facility] Comment on above: Performed By: #### 2 257831 #### [facility] [address] [place] [address] Chloride [Moles/Vol] 105 mmol/L Normal 101-111 [facility] Comment on above: Performed By: #### 2 884955 #### [facility] [address] [place] [address] CO2 [Moles/Vol] 25 mmol/L Normal 21-31 [facility] Comment on above: Performed By: #### 2 727348 #### [facility] [address] [place] [address] Creatinine [Mass/Vol] 1.2 mg/dL Normal 0.5-1.3 [facility] Comment on above: Performed By: #### 2 784831 #### [facility] [address] [place] [address] Globulin (S) [Mass/Vol] 3.1 g/dL Normal 1.4-4.0 [facility] Comment on above: Performed By: #### 2 033926 #### [facility] [address] [place] [address] Glucose [Mass/Vol] 140 mg/dL Normal 55-199 [facility] Comment on above: Performed By: #### 2 441575 #### [facility] [address] [place] [address] Potassium [Moles/Vol] 4.7 mmol/L Normal 3.5-5.3 [facility] Comment on above: Performed By: #### 2 684505 #### [facility] [address] [place] [address] Protein [Mass/Vol] 7.3 g/dL Normal 6.0-7.8 [facility] Comment on above: Performed By: #### 2 200163 #### [facility] [address] [place] [address] Sodium [Moles/Vol] 138 mmol/L Normal 135-145 [facility] Comment on above: Performed By: #### 2 516915 #### [facility] [address] [place] [address] Urea nitrogen [Mass/Vol] 28 mg/dL High 5-21 [facility] Comment on above: Performed By: #### 2 780789 #### [facility] [address] [place] [address] Urea nitrogen/Creatinine [Mass ratio] 23 No Units High 10-20 [facility] Comment on above: Performed By: #### 2 208789 #### [facility] [address] [place] [address] Consent for Treatmenton 03-23 Consent for Treatment [id number] E2#1.00TIFF Normal [facility] HEMATOLOGYOrdered By: SYSTEM SYSTEM on 04-14-2024 [...] 04-14-2024 Cholesterol [Mass/Vol] 164 mg/dL Normal 120-200 [facility] Comment on above: Performed By: #### 2 134007 #### [facility] [address] [place] [address] Cholesterol in HDL [Mass/Vol] 42 mg/dL Invalid Interpretation Code [facility] Comment on above: Result Comment: '>= 60 LOW RISK' '<= 40 HIGH RISK' Performed By: #### 2 754556 #### [facility] [address] [place] [address] Cholesterol in LDL [Mass/Vol] 83 mg/dL Normal <=129 [facility] Comment on above: Performed By: #### 2 050456 #### [facility] [address] [place] [address] Cholesterol in VLDL [Mass/Vol] 49 mg/dL High 7-40 [facility] Comment on above: Performed By: #### 2 885138 #### [facility] [address] [place] [address] Triglyceride [Mass/Vol] 246 mg/dL High <=149 [facility] Comment on above: Performed By: #### 2 357481 #### [facility] [address] [place] [address] TSH With T4fr Reflexon 04-14 TSH Qn 2.34 m[IU]/L Normal 0.34-5.60 [facility] Comment on above: Performed By: #### 1 [id number] #### [facility] [address] [place] [address] eGFRon 04-14-2024 eGFR 50 mL/min/1.73 m2 Low >=59 [facility] Comment on above: Order Comment: Order added by Discern Expert. Performed By: #### 1 [id number] #### [facility] [address] [place] [address] Family Medicine Office/Clini c Noteon 04-08-2024 Family Medicine Office/Clinic Note Chief Complaint possible bed bug bites HPI Staff Pt. states she stayed at a hotel in [place], thinks she may have bed bug bites. Has noted bites on legs, arms and stomach, some are itchy. Has tried hydrocortisone cream History of Present Illness Reviewed and agree with above documented HPI by mobile paramedical examiner. Portions of this record may have been created with voice recognition artificial intelligence software, specifically [employer], [employer] and or [employer]. Substitutions may have occurred due to the inherent limitations of voice recognition and artificial intelligence software. Patient is a 63-year-old female who presents to the [facility], for insect bites to her arms [...] alert, active Assessment/Plan 64-year-old female presented to [facility], for bedbug bites, exposure this past weekend, stepped in a hole to her room on Sunday night, started with the lesions on Sunday, about 2 days ago, no facial swelling cellulitis, patient appears ill or septic, respiratory distress, difficulty swallowing. Patient was given a prescription for permethrin lotion, take vneu-sfw-bhqifwu Benadryl as needed for itchiness, follow-up with [...] [place], Topical, Once, 60 gram, Refill(s) 0, [facility], 177, cm, 04/08/24 13:20:00 EDT, Height/Length Dosing, 125.7, kg, 04/08/24 13:18:00 EDT, Weight Dosing Follow-up With When Contact Information SIRIA ARMENTA, Mara, [facility] [address] [id number]- Additional Instructions: Patient Education BMI for Adults Bedbugs, Yfog-kh-Yxin Problem List/Past Medical History Ongoing Allergic rhinitis [...] in adul (more content not included)... Normal [facility] Comment on above: Result Comment: Elec [...] face, mouth, tongue, or throat. ? 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 ? Itchy, red, swollen areas [...] Reviewed: 12/21/2022 Elsevier Patient Education ? 2022 Elsevier Inc. Nutrition BMI for Adults What is BMI? Body mass index (BMI) is a number that is calculated from a person's weight and height. BMI can help estimate how much of a person' (more content not included)... Normal [facility] Discharge Instructionson Discharge Instructions [id number] 539#1.00TIFF Normal [facility] ED Clinical Summaryon 2023 ED Clinical Summary [address] [address] ED Clinical Summary Person Information Name: LEVI SOFIA [place] Age: 64 Years : 1960 Sex: Female Language: [place] Island[place] PCP: Mara BEVERLY MD Marital Status: Visit [...] 03/25/2024 00:56:05 03/25/2024 00:56:05 03/25/2024 00:56:05 ADDRESS: [address] [id number] PHYS DOC NOTES: MEDICAL INFORMATION: Prescriptions Given: New Medications [facility], [address] [place], [place] [id number], [phone] brompheniramine/dex tromethorphan/PSE (Bromfed DM oral syrup) 5 [...] Asthma, Adult Follow up: With: Address: When: Pandagreer BEVERLY [address] [place], [place] [id number] Business (1) In 3 days DIAGNOSIS: Asthma exacerbation Normal [facility] ED Note-Physicianon 03-25-20 ED Note-Physician Basic [...] and Complexity of Problems Differential Diagnosis: [] [facility] Data External documents reviewed: N/A My EKG [...] cough and congestion, 200 mL, Refill(s) 0, [facility], 177, cm, 03/24/24 22:52:00 EDT, Height/Length Dosing, 128, kg, 03/24/24 22:52:00 EDT, Weight Dosing B-Type Natriuretic Peptide Basic Metabolic Panel CBC w/ Auto Diff ECG 12 Lead Adult ED Cardiac Monitoring eGFR Influenza A&B Ag Oxygen Saturation Oxygen Therapy PT & PTT Rapid COVID Antigen ([facility] Saline Lock Insert Troponin 0 Hr. Troponin [...] Mara BEVERLY In 3 days [address] [place] [address]- Business (1) Additional Instructions: Patient Education Asthma, [...] exam Histor (more content not included)... Normal [facility] Comment on above: Result Comment: Elec tronically Signed By: Yuniel Ocasio DO.christiana\Date and Time Signed: 03/25/24 00:44 EDT ED [...] (shortness of breath). ? 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 ? Chest tightness. ? Tiredness (fatigue) [...] Follow these instructions at home: ? Take monb-eiq-kbbbclp and prescription medicines only as told by [...] ? You (more content not included)... Normal [facility] ED Patient Summaryon 024 ED Patient Summary [address] [address] Patient Discharge Instructions Person Information Name: LEVI SOFIA Age: 64 Years Arrival Date: 03/24/2024 22:39:26 Discharge Diagnosis: Asthma exacerbation Primary Care Physician: Mara BEVERLY MD Provider Information Primary Provider: Yuniel Ocasio DO Advanced Sleeve Setter:None The exam and treatment you received in the Emergency Department were for an urgent problem and are not intended as complete care. It is important that you follow up with a doctor, nurse practitioner, or physician?s ophthalmic medical assistant for ongoing care. If your symptoms [...] With: Address: When: [place] [address] Business (1) In 3 days In the event that this physician does not participate in your insurance network, please consult with your insurance company to find a nearby participating provider. Patient Education Materials: Asthma, Adult A MESSAGE TO ALL PATIENTS REGARDING OPIOIDS PRESCRIPTION OPIOIDS: WHAT YOU NEED TO KNOW Prescription opioids can be used to help relieve suaehdys-mz-zmpzjl pain and are often prescribed following a [...] be struggling with addiction, tell your health care assistant and ask for guidance or call [facility]?S National Helpline at 0-464-638-YHOP. r Source: [place] Department of Health and Human Services (more content not included)... Normal [facility] Troponin 1 Hr.Ordered By: [employer] SYSTEM on 03-25-2024 Troponin HS 2.90 pg/mL Low 10.10-27.10 [facility] Comment on above: Interpretive Data: T he 95% CI (Confidence Interval) PPV (Positive Predictive Value) for myocardial infarction in females is 38 pg/mL, in males 51 pg/mL. The results should be used in conjunction with clinical conditions of myocardial infarction. (Scutum High Sensitivity Troponin I Instructions For Use, [employer], May 2018) Order Comment: 1hr d raw @ :02 Result Comment: The 95% CI (Confidence Interval) PPV (Positive Predictive Value) for myocardial infarction in females is 38 pg/mL, in males 51 pg/mL. The results should be used in conjunction with clinical conditions of myocardial infarction. (Scutum High Sensitivity Troponin I Instructions For Use, [employer], May 2018) Performed By: #### 1 [id number] #### [facility] [address] [place] [address] XR Chest Single Viewon 03-25 XR Chest [...] HENRIETTA Technologist: ALEXEY Technical Comments Radiation Dose: Kar in mGy = na DAP = na Normal [facility] BMPon 03-24-2024 Anion gap [Moles/Vol] 15 mmol/L Normal 6-16 [facility] Comment on above: Performed By: #### 2 [id number] #### [facility] [address] [place] [address] Calcium [Mass/Vol] 9.4 mg/dL Normal 8.9-11.1 [facility] Comment on above: Performed By: #### 2 [id number] #### [facility] [address] [place] [address] Chloride [Moles/Vol] 99 mmol/L Low 101-111 [facility] Comment on above: Performed By: #### 2 [id number] #### [facility] [address] [place] [address] CO2 [Moles/Vol] 25 mmol/L Normal 21-31 [facility] Comment on above: Performed By: #### 2 [id number] #### [facility] [address] [place] [address] Creatinine [Mass/Vol] 1.3 mg/dL Normal 0.5-1.3 [facility] Comment on above: Performed By: #### 2 [id number] #### [facility] [address] [place] [address] Glucose [Mass/Vol] 146 mg/dL Normal 55-199 [facility] Comment on above: Performed By: #### 2 [id number] #### [facility] [address] [place] [address] Potassium [Moles/Vol] 4.0 mmol/L Normal 3.5-5.3 [facility] Comment on above: Performed By: #### 2 [id number] #### [facility] [address] [place] [address] Sodium [Moles/Vol] 135 mmol/L Normal 135-145 [facility] Comment on above: Performed By: #### 2 [id number] #### [facility] [address] [place] [address] Urea nitrogen [Mass/Vol] 40 mg/dL High 5-21 [facility] Comment on above: Performed By: #### 2 [id number] #### [facility] [address] [place] [address] Urea nitrogen/Creatinine [Mass ratio] 31 No Units High 10-20 [facility] Comment on above: Performed By: #### 2 [id number] #### [facility] [address] [place] [address] BNPon 03-24-2024 Natriuretic peptide B (Bld) [Mass/Vol] 14 pg/mL Normal 5-80 [facility] Comment on above: Performed By: #### 1 [id number] #### [facility] [address] [place] [address] CBC w/ Auto Diffon 4 Basophils/100 WBC (Bld) 0.7 % Normal 0.0-2.0 [facility] Comment on above: Performed By: #### 2 [id number] #### [facility] [address] [place] [address] Basophils/Leukocyte s Auto (Bld) [Pure # fraction] 0.1 E9/L Normal 0.0-0.2 [facility] Comment on above: Performed By: #### 2 763231 #### [facility] [address] [place] [address] Eosinophils (Bld) [#/Vol] 0.1 E9/L Normal 0.0-0.5 [facility] Comment on above: Performed By: #### 2 297986 #### [facility] [address] [place] [address] Eosinophils/100 WBC (Bld) 0.4 % Normal 0.0-8.0 [facility] Comment on above: Performed By: #### 2 [id number] #### [facility] [address] [place] [address] Erythrocyte distribution width (RBC) [Ratio] 14.7 % High 10.9-14.2 [facility] Comment on above: Performed By: #### 2 [id number] #### [facility] [address] [place] [address] Hematocrit (Bld) [Volume fraction] 39.6 % Normal 34.0-46.0 [facility] Comment on above: Performed By: #### 2 213081 #### [facility] [address] [place] [address] Hemoglobin (Bld) [Mass/Vol] 13.2 g/dL Normal 12.0-16.0 [facility] Comment on above: Performed By: #### 2 528267 #### [facility] [address] [place] [address] Lymphocytes (Bld) [#/Vol] 2.6 E9/L Normal 1.0-4.0 [facility] Comment on above: Performed By: #### 2 424186 #### [facility] [address] [place] [address] Lymphocytes/100 WBC (Bld) 16.3 % Normal 14.0-50.0 [facility] Comment on above: Performed By: #### 2 914300 #### [facility] [address] [place] [address] MCH (RBC) [Entitic mass] 30.7 pg Normal 27.0-34.0 [facility] Comment on above: Performed By: #### 2 729168 #### [facility] [address] [place] [address] MCHC (RBC) [Mass/Vol] 33.3 g/dL Normal 31.4-36.0 [facility] Comment on above: Performed By: #### 2 [id number] #### [facility] [address] [place] [address] MCV (RBC) [Entitic vol] 92.3 fL Normal 80.0-100.0 [facility] Comment on above: Performed By: #### 2 [id number] #### [facility] [address] [place] [address] Monocytes (Bld) [#/Vol] 1.0 E9/L Normal 0.2-1.0 [facility] Comment on above: Performed By: #### 2 111945 #### [facility] [address] [place] [address] Neutrophils (Bld) [#/Vol] 12.1 E9/L High 2.0-7.5 [facility] Comment on above: Performed By: #### 2 059360 #### [facility] [address] [place] [address] Neutrophils/100 WBC (Bld) 76.0 % High 36.0-75.0 [facility] Comment on above: Performed By: #### 2 273827 #### [facility] [address] [place] [address] Platelet mean volume (Bld) [Entitic vol] 7.5 fL Normal 6.4-10.8 [facility] Comment on above: Performed By: #### 2 352643 #### [facility] [address] [place] [address] Platelets (Bld) [#/Vol] 194.0 E9/L Normal 150.0-500.0 [facility] Comment on above: Performed By: #### 2 846475 #### [facility] [address] [place] [address] RBC (Bld) [#/Vol] 4.3 E12/L Normal 4.3-5.9 [facility] Comment on above: Performed By: #### 2 519796 #### [facility] [address] [place] [address] WBC corrected for nucl RBC Auto (Bld) [#/Vol] 15.9 E9/L High 4.0-11.0 [facility] Comment on above: Performed By: #### 2 960624 #### [facility] [address] [place] [address] CHEMISTRYOrdered By: SYSTEM SYSTEM on 03-24-2024 Anion [...] Sensitivity Troponin I Instructions For Use, Yaima Jackson, May 2018) Urea nitrogen [Mass/Vol] 40 mg/dL High 5 - 21 mg/dL [facility] Urea nitrogen/Creatinine [Mass ratio] 31 mg/mg High 10 - 20 [facility] CHEMISTRYOrdered By: Caroline Avila on 03-24-2024 Natriuretic peptide B (Bld) [Mass/Vol] 14 pg/mL Normal 5 - 80 pg/mL [facility] COAGULATIONOrdered By: Raeann Avila on 03-24-2024 aPTT Coag (PPP) [Time] 29.2 s Normal 25.1 - 36.5 second(s) [facility] Auto Coag Comment on above: Interpretive Data: [...] the same coagulation reagent and instrumentation as [facility]. Currently there are no coagulation studies available worldwide for children to 14 days, and no normal ranges. Heparin therapeutic range (represented by Anti-Factor Xa activity of 0.2 - 0.4 U/mL) corresponds to PTT of 56.6 - 109.0 sec. INR Coag (PPP) [Relative time] 0.95 {INR} Invalid Interpretation Code [facility] Auto Coag Comment on above: Interpretive Data: I NR results are specifically intended to assess patients stabilized on long-term Anticoagulation therapy suggested INR s Less Intensive Anticoagulation 2.0 3.0 Conventional Range 3.0 4.5 PT Coag (PPP) [Time] 10.6 s Normal 9.4 - 12.5 second(s) [facility] Auto Coag Comment on above: Interpretive Data: [...] the same coagulation reagent and instrumentation as [facility]. Currently there are no coagulation studies available worldwide for children to 14 days, and no normal ranges. Consent for Treatmenton Consent for Treatment [id number] 35#1.00TIFF Normal [facility] HEMATOLOGYOrdered By: SYSTEM SYSTEM on 03-24-2024 Basophils/100 [...] Agon Influenzae A Ag Negative Normal Negative [facility] Comment on above: Performed By: #### 1 [id number] #### [facility] [address] [place] [address] Influenzae B Ag Negative Normal Negative [facility] Comment on above: Result Comment: Test sensitivity and specificity vary for age group, specimen type, antigen types, and prevalence of disease. Test results must be evaluated in conjunction with other clinical data available to the physician. Individuals who received nasally administered Influenza A vaccine may have positive test results up to 3 days after vaccination. Performed By: #### 1 [id number] #### [facility] [address] [place] [address] MICRO OTHER TESTSOrdered By: Caroline Avila on 03-24-2024 Influenzae A Ag Negative (03/24/24 11:05 PM) Normal Negative [facility] Sero Influenzae B Ag Negative 1 (03/24/24 11:05 PM) Normal Negative [facility] Sero Comment on above: Interpretive Data: T [...] NEG Ctl Pass (03/24/24 11:05 PM) Normal [facility] Man Sero Rapid COV Int POS Ctl Pass (03/24/24 11:05 PM) Normal [facility] Sero SARS-CoV+SARS-CoV-2 (COVID-19) Ag IA.rapid Ql (Resp) Not Detected 7 (03/24/24 11:05 PM) Normal Not Detected [facility] Man Sero Comment on above: Interpretive Data: T he F[employer] Veritor System for Rapid Detection of SARS-CoV-2 [...] other viruses or pathogens; and, in the [facility] [[email or web address]], this test is only authorized for the duration of the declaration that circumstances exist justifying the authorization of emergency use of in vitro diagnostics for detection and/or diagnosis of the virus that causes COVID-19 under Section 564(b)(1) of the Act, 21 U.S.C. 360bbb-3(b)(1), unless the authorization is terminated or revoked sooner. PT & PTTon 03-24-2024 aPTT Coag (PPP) [Time] 29.2 second(s) Normal 25.1-36.5 [facility] Comment on above: Result Comment: Para [...] the same coagulation reagent and instrumentation as [facility]. Currently there are no coagulation studies available worldwide for children to 14 days, and no normal ranges. Heparin therapeutic range (represented by Anti-Factor Xa activity of 0.2 - 0.4 U/mL) corresponds to PTT of 56.6 - 109.0 sec. Performed By: #### 1 [id number] #### [facility] [address] [place] [address] INR Coag (PPP) [Relative time] 0.95 {INR} Invalid Interpretation Code [facility] Comment on above: Result Comment: INR results are specifically intended to assess patients stabilized on long-term Anticoagulation therapy suggested INR?s ?Less Intensive Anticoagulation? 2.0 ? 3.0 Conventional Range 3.0 ? 4.5 Performed By: #### 1 [id number] #### [facility] [address] [place] [address] PT Coag (PPP) [Time] 10.6 second(s) Normal 9.4-12.5 [facility] Comment on above: Result Comment: 15 [...] the same coagulation reagent and instrumentation as [facility]. Currently there are no coagulation studies available worldwide for children to 14 days, and no normal ranges. Performed By: #### 1 [id number] #### [facility] [address] [place] [address] Rapid COVID Antigen ([facility])on 03-24-2024 Rapid COV Int NEG Ctl Pass Normal [facility] Comment on above: Performed By: #### 2 [id number] #### [facility] [address] [place] [address] Rapid COV Int POS Ctl Pass Normal [facility] Comment on above: Performed By: #### 2 [id number] #### [facility] [address] [place] [address] SARS-CoV+SARS-CoV-2 (COVID-19) Ag IA.rapid Ql (Resp) Not detected Normal Not Detected [facility] Comment on above: Result Comment: The [employer]? System for Rapid Detection of SARS-CoV-2 is [...] or revoked sooner. Performed By: #### 2 [id number] #### [facility] [address] [place] [address] Troponin 0 Hr.on 03-24-2024 Troponin HS 4.00 pg/mL Low 10.10-27.10 [facility] Comment on above: Result Comment: The 95% CI (Confidence Interval) PPV (Positive Predictive Value) for myocardial infarction in females is 38 pg/mL, in males 51 pg/mL. The results should be used in conjunction with clinical conditions of myocardial infarction. (Access High Sensitivity Troponin I Instructions For Use, Yaima [employer], May 2018) Performed By: #### 1 [id number] #### [facility] [address] [place] [address] eGFRon 03-24-2024 eGFR 46 mL/min/1.73 m2 Low >=59 [facility] Comment on above: Order Comment: Order added by Discern Expert. Performed By: #### 1 [id number] #### [facility] [address] [place] [address] Ambulatory Visit Summaryon 0 03-21-2024 Ambulatory Visit [...] PM EDT With: Mara BEVERLY MD Where: [facility] [place] [facility] [address], [address] [place] [address]- \.br\ You Need to Schedule the Following Appointments\.br\ Follow Up with SIRIA ARMENTA, Mara, [facility] When: Only if needed\.br\ Where:\.br\ \.br\ Medications\.br\ What How Much When Instructions\.br\ New benzonatate (benzonatate 200 mg oral capsule) 1 Capsules By Mouth 3 times a day Duration: 10 Days Pickup at [facility]\.br\ Unchanged albuterol (Albuterol (Eqv-ProAir HFA) 90 [...] if questions or concerns \.br\ Pharmacy Information\.br\ [facility]: [address], [place] [id number] [phone]\.br\ Allergies\.br\ Augmentin (hives)\.br\ Avelox (Hives)\.br\ Parafon Forte [...] Pollen.\.br\ ? \.br\ Air pollution (like household associate manager affiliate marketing, wood smoke, smog, or chemical odors).\.br\ What are the signs or [facility] Medicine Office/Clini c Noteon 03-21-2024 Family Medicine [...] quality improved. She plans to travel to [place] on Sunday and expresses concern about feeling [...] 30 cap (more content not included)... Normal [facility] Comment on above: Result Comment: Elec [...] ? Pollen. ? Air pollution (like household associate manager affiliate marketing, wood smoke, smog, or chemical odors). What [...] polyester or cotton. General instructions ? Take xibo-vuu-qrgjurk and prescription medicines only as told by [...] pollute the air. These may include household associate manager affiliate marketing, wood smoke, smog, or chemical odors. This information is not intended to replace advice given to you by your health care provider. Make sure you discuss any questions you have with your health [facility] (more content not included)... Normal [facility] Patient Correspondenceon Patient Correspondence [id number] B#1.00TIFF Normal [facility] Ambulatory Visit Summaryon 0 03-10-2024 Ambulatory [...] PM EDT With: Mara BEVERLY MD Where: [facility] [place] [address], [address] [place] [id number]- \.br\ Medications\.br\ What How Much When Instructions\.br\ [...] ? \.br\ Air pollutants such as household associate manager affiliate marketing, aerosol sprays, strong odors, and smoke of [...] cause of your asthma attack.\.br\ ? \.b [facility] Medicine Office/Clini c Noteon 03-10-2024 [facility] Medicine Office/Clinic Note Chief Complaint pt presents [...] day(s), # 6 tab(s), Refills(s) 0, Pharmacy: [facility], 177, cm, 03/10/24 18:16:00 EDT, Height/Length Dosing, 128.6, kg, 03/10/24 18:16:00 EDT, Weight Dosing fluconazole, See Instructions, Take one po q 3 day as needed for post op yeast, # 2 caplet(s), Refills(s) 0, Pharmacy: [facility], 177, cm, 03/10/24 18:16:00 EDT, Height/Length Dosing, 128.6, kg, (more content not included)... Normal [facility] Comment on above: Result Comment: Elec [...] grass. ? Air pollutants such as household associate manager affiliate marketing, aerosol sprays, strong odors, and smoke of [...] these instructions at home: Medicines ? Take olwe-pii-ppghtin and prescription medicines only as told by [...] to co (more content not included)... Normal [facility] Physician Referralon 024 Physician Referral [id number] 60#1.00TIFF Normal [facility] Ambulatory Visit Summaryon 0 12-10-2023 Ambulatory [...] D Your Care Team Attending Physician - Mara [...] PM EDT With: Mara BEVERLY MD Where: [facility] Family Medicine Office/Clini c Noteon 12-10-2023 Family Medicine Office/Clinic Note Chief Complaint 6mo chk up, rf sumitriptan to [place], needs orders to get labs at [facility] and would like to add vitamin levels. pt c/o urinary urgency/frequency, denies burning History of Present Illness The patient is a 63-year-old female who presents for a general health maintenance checkup. She just returned from [place] after spending over a month there with [...] Urnls Dip Stick Auto w/ Microscopy POC 52181 2. Combined hyperlipidemia (E78.2: Mixed hyperlipidemia) Continues on moderate intensity atorvastatin to help prevent cardiovascular disease risk progression. Requesting labs to be done before next follow-up. Ordered: Urnls Dip Stick Auto w/ Microscopy POC 56145 3. 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 Fasting hyperglycemia (R73.01: Impaired fasting glucose) Continue limiting carbohydrates in the diet to prevent any progression diabetes mellitus Ordered: Urnls Dip Stick Auto w/ Microscopy POC 04260 5. Depression, major, recurrent, in partial remission (F33.41: Major depressive disorder, recurrent, in partial remission) Doing nicely with venlafaxine we will continue the same patient defers any need for counseling family is very supportive and she is doing much better now that she is retired from work Ordered: Urnls Dip Stick Auto w/ Microscopy POC 17646 6. Hypothyroidism, congenital (E03.1: Congenital hypothyroidism witho (more content not included)... Normal [facility] Comment on above: Result Comment: Elec [...] Spices. Seasoni (more content not included)... Normal [facility] Patient Correspondenceon Patient Correspondence [id number] 0F#1.00TIFF Normal [facility] Patient Correspondenceon Patient Correspondence [id number] FB#1.00TIFF Sudhakar [facility] Medicine Office/Clini c Noteon 10-17-2023 Family Medicine Office/Clinic Note Chief Complaint possible sinus infection HPI Staff 63 year old female presents with possible sinus infection. Sinus pressure, itchy ears, drainage, symptoms started about 5 days ago. History of Present Illness rm 1 Portions of this record may have been created with voice recognition artificial intelligence software, specifically [employer], [employer] and or [employer]. Substitutions may have occurred due to the [...] BID, # 20 cap(s), Refills(s) 0, Pharmacy: [facility], 178, cm, 10/17/23 14:51:00 EST, Height/Length Dosing, 127, kg, 10/17/23 14:51:00 EST, Weight Dosing Follow-up With When Contact Information SIRIA ARMENTA, Mara, [place] [id number]- Additional Instructions: Patient Education Sinus Infection, Adult, Wjrb-zt-Kama BMI for Adults Problem List/Past Medical History [...] extract (more content not included)... Normal [facility] Comment on above: Result Comment: Elec tronically Signed By: Timothy Padilla PA-C, V.\.br\Date and Time Signed: 10/17/23 15:12 EST Patient Educationon 10-17-20 Patient Education Infectious Disease Sinus Infection, Adult [...] ? Medicines that treat allergies (antihistamines). ? Vqlh-jmo-tjavlle pain relievers. ? If caused by bacteria, your doctor may wait to see if you will get better without treatment. You may be given antibiotic medicine if you have: ? A very bad infection. ? A weak body defense system. ? If caused by growths in the nose, surgery may be needed. Follow these instructions at home: Medicines ? Take, use, or apply ekbj-bbd-dcdejrd and prescription medicines only as told by [...] cannot use soap and water, use hand muck boss. ? Do not smoke. Avoid being around [...] follow-up visits (more content not included)... Normal [facility] Consultation Noteon 09-17-20 Consultation Note [id number] 3#1.00TIFF Normal [facility] CHEMISTRYOrdered By: SYSTEM SYSTEM on 05-17-2023 Anion gap [Moles/Vol] 10 mmol/L Normal 6 - 16 mEq/L FT [facility] Chloride [Moles/Vol] 105 mmol/L Normal 101 - 111 mmol/L [facility] Remisol CO2 [Moles/Vol] 27 mmol/L Normal 21 - 31 mmol/L [facility] Remisol Creatinine [Mass/Vol] 1.1 mg/dL Normal 0.5 - 1.3 mg/dL [facility] Remisol GFR/1.73 sq M.predicted among non-blacks MDRD (S/P/Bld) [Vol rate/Area] 56 mL/min/1.73 m2 Low >=59mL/min/1.73 m2 FT Chem S Potassium [Moles/Vol] 4.7 mmol/L Normal 3.5 - 5.3 mmol/L [facility] Remisol Sodium [Moles/Vol] 137 mmol/L Normal 135 - 145 mmol/L [facility] Remisol Urea nitrogen [Mass/Vol] 26 mg/dL High 5 - 21 mg/dL [facility]isol HEMATOLOGYOrdered By: [employer] SYSTEM on 05-17-2023 Basophils/100 WBC (Bld) 0.6 [...] % FT [facility] Hematocrit (Bld) [Volume fraction] 36.4 % Normal 34.0 - 46.0 % [facility] Comment on above: Result Comment: Resu lts Verified By Repeat Analysis Hemoglobin (Bld) [Mass/Vol] 12.1 g/dL Normal 12.0 - 16.0 gm/dL FT [facility] Comment on above: Result Comment: Resu lts Verified By Repeat Analysis MCH (RBC) [Entitic mass] 30.9 pg Normal 27.0 - 34.0 pg FT [facility] MCHC (RBC) [Mass/Vol] 33.2 g/dL Normal 31.4 - 36.0 gm/dL [facility] MCV (RBC) [Entitic vol] 93.1 fL Normal 80.0 - 100.0 fL [facility] Platelet mean volume (Bld) [Entitic vol] 7.8 fL Normal 6.4 - 10.8 fL [facility]eAutoSS Platelets (Bld) [#/Vol] 196.0 E9/L Normal 150.0 - 500.0 E9/L [facility]eAuto[facility] RBC (Bld) [#/Vol] 3.9 E12/L Low 4.3 - 5.9 E12/L [facility] HemeAutoSS WBC corrected for nucl RBC Auto (Bld) [#/Vol] 9.6 E9/L Normal 4.0 - 11.0 E9/L [facility] CHEMISTRYOrdered By: SYSTEM SYSTEM on 05-16-2023 Anion gap [Moles/Vol] 13 mmol/L Normal 6 - 16 mEq/L [facility] Remisol Chloride [Moles/Vol] 103 mmol/L Normal 101 - 111 mmol/L [facility] Remisol CO2 [Moles/Vol] 24 mmol/L Normal 21 - 31 mmol/L [facility] Remisol Creatinine [Mass/Vol] 1.2 mg/dL Normal 0.5 - 1.3 mg/dL [facility] Remisol GFR/1.73 sq M.predicted among non-blacks MDRD (S/P/Bld) [Vol rate/Area] 51 mL/min/1.73 m2 Low >=59mL/min/1.73 m2 [facility] Chem S Glucose post fast [Mass/Vol] 132 mg/dL High 55 - 99 mg/dL [facility] Remisol Potassium [Moles/Vol] 3.8 mmol/L Normal 3.5 - 5.3 mmol/L [facility] Remisol Sodium [Moles/Vol] 136 mmol/L Normal 135 - 145 mmol/L [facility] Remisol Urea nitrogen [Mass/Vol] 31 mg/dL High 5 - 21 mg/dL [facility] Remisol HEMATOLOGYOrdered By: Millicent Andrade on 05-16-2023 [...] E12/L Normal 4.3 - 5.9 E12/L [facility]eAutoSS WBC [...] Interpretation Code Negative [facility] UA Auto SS Blanding.plasma/Lith ium.RBC (Bld) [Mass ratio] 0-3 /HPF Normal [...] [facility] UA Auto SS Urobilinogen Qn (U) [id number] {Rupert'U}/dL Normal 0.0 - 1.0 EU/dL [facility] [...] by: JODI PAPPAS Date: 2022-08-02 17:14 Normal [facility] CHEMISTRYOrdered By: SYSTEM SYSTEM on 07-20-2022 Anion gap [Moles/Vol] 11 mmol/L Normal 6 - 16 mEq/L [facility] Remisol Calcium [Mass/Vol] 9.9 mg/dL Normal 8.9 - 11.1 mg/dL [facility] Remisol Chloride [Moles/Vol] 104 mmol/L Normal 101 - 111 mmol/L [facility] Remisol CO2 [Moles/Vol] 28 mmol/L Normal 21 - 31 mmol/L [facility] Remisol Creatinine [Mass/Vol] 0.9 mg/dL Normal 0.5 - 1.3 mg/dL [facility] Remisol GFR/1.73 sq M.predicted among blacks MDRD (S/P/Bld) [Vol rate/Area] mL/min/1.73 m2 Normal >=59mL/min/1.73 m2 [facility] Chem S GFR/1.73 sq M.predicted among non-blacks MDRD (S/P/Bld) [Vol rate/Area] mL/min/1.73 m2 Normal >=59mL/min/1.73 m2 [facility] Chem S Glucose [Mass/Vol] 111 mg/dL Normal 55 - 199 mg/dL [facility] Remisol Potassium [Moles/Vol] 4.3 mmol/L Normal 3.5 - 5.3 mmol/L [facility] Remisol Sodium [Moles/Vol] 139 mmol/L Normal 135 - 145 mmol/L [facility] Remisol Urea nitrogen [Mass/Vol] 21 mg/dL Normal 5 - 21 mg/dL [facility] Remisol Urea nitrogen/Creatinine [Mass ratio] 23 mg/mg High 10 - 20 [facility] DIPHTHERIA AND TETANUS ANTIT OXOIDSon 05-05-2022 DIPHTHERIA ANTITOXOID 0.41 IU/mL Normal [facility] Comment on above: Order Comment: ROSAMilton NG: NO Result Comment: Reference Range: 0.10 [...] analytical performance characteristics have been determined by [facility], [place], [place]. It has not been cleared or approved by the U.S. Food and Drug Administration. This assay has been validated pursuant to the CLIA regulations and is used for clinical purposes. Performed By: #### 5 22, 542, 54, 539 #### [facility] [address], [address] [place] [address] Hall Supervisor: Lenin Larson MD #### [id number] #### [facility], [address] [place] [address] Hall Supervisor: Sejal Johns MD,PhD,HENRIETTA #### [id number] #### [facility] [address] [facility] [place], [place] Hall Supervisor: Sherwin Jay M.D.,PhD TETANUS ANTITOXOID 5.47 IU/mL Normal [facility] Comment on above: [...] analytical performance characteristics have been determined by [facility] [place], [place]. It has not been cleared or approved by the U.S. Food and Drug Administration. This assay has been validated pursuant to the CLIA regulations and is used for clinical purposes. Performed By: #### 5 43, 542, 545, 539 #### [facility] [address] [address] Hall Supervisor: Lenin Larson MD #### [id number] #### [facility]/[place] [address] [place] [address] Hall Supervisor: Sejal Johns MD,PhD,HENRIETTA #### [id number] #### [facility] [address] [facility] [place], [place] Hall Supervisor: Sherwin Jay M.D.,PhD IMMUNOGLOBULIN Aon 2 IMMUNOGLOBULIN A 239 mg/dL Normal 70-320 [facility] Comment on above: Performed By: #### 5 43, 542, 545, 539 #### [facility] [address], [address] [place] [address] Hall Supervisor: Lenin Larson MD #### [id number] #### [facility]/[place] [address] [place] Hall Supervisor: Sejal Johns MD,PhD,HENRIETTA #### [id number] #### [facility]/[address] [place], [place] Hall Supervisor: Sherwin Jay M.D.,PhD IMMUNOGLOBULIN Edis 2 IMMUNOGLOBULIN E 77 kU/L Normal [facility] Comment on above: Performed By: #### 5 43, 542, 545, 539 #### [facility] [place] [address] [place] , [address] [place] [address] Hall Supervisor: Lenin Larson MD #### [id number] #### [facility], [facility] [place] Hall Supervisor: Sejal Johns MD,PhD,HENRIETTA #### [id number] #### [facility]/[address] [place], [place] Hall Supervisor: Sherwin Jay M.D.,PhD IMMUNOGLOBULIN Lenard 2 IMMUNOGLOBULIN G 1305 mg/dL Normal 600-1540 [facility] Comment on above: Performed By: #### 5 43, 542, 545, 539 #### [facility] of [place] [address], [address] [place] [address] Hall Supervisor: Lenin Larson MD #### [id number] #### [facility], [address] [place], [place] Hall Supervisor: Sejal Johns MD,PhD,HENRIETTA #### [id number] #### [facility]/[place] [id number] [facility] [address] [place], [place] Hall Supervisor: Sherwin Jay M.D.,PhD IMMUNOGLOBULIN Mon 2 IMMUNOGLOBULIN M 203 mg/dL Normal 50-300 [facility] Comment on above: Performed By: #### 5 43, 542, 545, 539 #### [facility] of [facility] [address], [address] [place] [address] Hall Supervisor: Lenin Larson MD #### [id number] #### [facility], [address] [place] [address] Hall Supervisor: Sejal Johns MD,PhD,HENRIETTA #### 51930 #### [facility]/[place] [id number] [facility] [place], [place] Hall Supervisor: Sherwin Jay M.D.,PhD STREPTOCOCCUS PNEUMONIAE AB (IGG) (23 SEROTYPES)on 05-05-2022 SEROTYPE 1 (1) 1.1 Normal [facility] Comment on above: Performed By: #### 5 43, 542, 545, 539 #### [facility] of [facility] [address] , [address] [place] [address] Hall Supervisor: Lenin Larson MD #### [id number] #### [facility], [address] [place], [place] [id number] Hall Supervisor: Sejal Johns MD,PhD,HENRIETTA #### [id number] #### [facility]/[address] [place], [place] Hall Supervisor: Sherwin Jay M.D.,PhD SEROTYPE 12 (12F) 0.5 Normal [facility] Comment on above: Performed By: #### 5 43, 542, 545, 539 #### [facility] of [facility] [address], [address] [place] [address] Hall Supervisor: Lenin Larson MD #### [id number] #### [facility], [address] [place] [address] Hall Supervisor: Sejal Johns MD,PhD,HENRIETTA #### [id number] #### [facility]/[address] [place] Hall Supervisor: Sherwin Jay M.D.,PhD SEROTYPE 14 (14) 3.3 Normal [facility] Comment on above: Performed By: #### 5 43, 542, 545, 539 #### [facility] of [facility] [address], [address] [place] [address] Hall Supervisor: Lenin Larson MD #### [id number] #### [facility], [address] [place] [address] Hall Supervisor: Sejal Johns MD,PhD,HENRIETTA #### [id number] #### [facility]/[address] [place], [place] Hall Supervisor: Sherwin Jay M.D.,PhD SEROTYPE 17 (17F) 5.4 Normal [facility] Comment on above: Performed By: #### 5 43, 542, 545, 539 #### [facility] of [facility] [address], [address] [place] [address] Hall Supervisor: Lenin Larson MD #### [id number] #### [facility], [address] [place] [id number] Hall Supervisor: Sejal Johns MD,PhD,HENRIETTA #### [id number] #### [facility]/[address] [place] Hall Supervisor: Sherwin Jay M.D.,PhD SEROTYPE 19 (19F) 4.3 Normal [facility] Comment on above: Performed By: #### 5 43, 542, 545, 539 #### [facility] of [facility] [address], [address] [place] [address] Hall Supervisor: Lenin Larson MD #### [id number] #### [facility], [address] [facility], [place] [id number] Hall Supervisor: Sejal Johns MD,PhD,HENRIETTA #### [id number] #### [facility]/[address] [place] Hall Supervisor: Sherwin Jay M.D.,PhD SEROTYPE 2 (2) 1.0 Normal [facility] Comment on above: Performed By: #### 5 43, 542, 545, 539 #### [facility] of [facility] [address], [address] [place] [address] Hall Supervisor: Lenin Larson MD #### [id number] #### [facility], [address] [place] [address] Hall Supervisor: Sejal Johns MD,PhD,HENRIETTA #### [id number] #### [facility]/[address] [place] Hall Supervisor: Sherwin Jay M.D.,PhD SEROTYPE 20 (20) 1.8 Normal [facility] Comment on above: Performed By: #### 5 43, 542, 545, 539 #### [facility] of [facility] [address], [address] [place] [address] Hall Supervisor: Lenin Larson MD #### [id number] #### [facility], [address] [place] [address] Hall Supervisor: Sejal Johns MD,PhD,HENRIETTA #### 53197 #### [facility]/[place] [address] [facility] [address] [place], [place] Hall Supervisor: Sherwin Jay M.D.,PhD SEROTYPE 22 (22F) <0.3 Normal [facility] Comment on above: Performed By: #### 5 43, 542, 545, 539 #### [facility] of [place] [address] [place] , [address] [place] [address] Hall Supervisor: Lenin Larson MD #### [id number] #### [facility], [address] [facility], [place] [id number] Hall Supervisor: Sejal Johns MD,PhD,HENRIETTA #### 74940 #### [facility]/[address] [place], [place] Hall Supervisor: Sherwin Jay M.D.,PhD SEROTYPE 23 (23F) 4.9 Normal [facility] Comment on above: Performed By: #### 5 43, 542, 545, 539 #### [facility] of [place] [address] [place] , [address] [place] [address] Hall Supervisor: Lenin Larson MD #### 36174 #### [facility], [address] [facility], [place] [id number] Hall Supervisor: Sejal Johns MD,PhD,HENRIETTA #### [id number] #### [facility]/[address] [place], [place] Hall Supervisor: Sherwin Jay M.D.,PhD SEROTYPE 26 (6B) 0.5 Normal [facility] Comment on above: Performed By: #### 5 43, 542, 545, 539 #### [facility] of [place] [address] [place] , [address] [place] [address] Hall Supervisor: Lenin Larson MD #### 15766 #### [facility], [address] [place] [address] Hall Supervisor: Seajl Johns MD,PhD,HENRIETTA #### [id number] #### [facility]/[address] [place], [place] Hall Supervisor: Sherwin Jay M.D.,PhD SEROTYPE 3 (3) 0.7 Normal [facility] Comment on above: Performed By: #### 5 43, 542, 545, 539 #### [facility] of [place] [address], [address] [place] [address] Hall Supervisor: Lenin Larson MD #### 45628 #### [facility]/[place] [address] Hall Supervisor: Sejal Johns MD,PhD,HENRIETTA #### 14638 #### [facility]/[address] [place], [place] Hall Supervisor: Sherwin Jay M.D.,PhD SEROTYPE 34 (10A) 1.3 Normal [facility] Comment on above: Performed By: #### 5 43, 542, 545, 539 #### [facility] of [place] [address], [address] [place] [address] Hall Supervisor: Lenin Larson MD #### 11231 #### [facility]/[place] [address] Hall Supervisor: Sejal Johns MD,PhD,HENRIETTA #### 65901 #### [facility]/[address] [place], [place] Hall Supervisor: Sherwin Jay M.D.,PhD SEROTYPE 4 (4) 2.1 Normal [facility] Comment on above: Performed By: #### 5 43, 542, 545, 539 #### [facility] of [facility] [address], [address] [place] [address] Hall Supervisor: Lenin Larson MD #### 35293 #### [facility], [address] [place] Hall Supervisor: Sejal Johns MD,PhD,HENRIETTA #### 07621 #### [facility]/[address] [place] Hall Supervisor: Sherwin Jay M.D.,PhD SEROTYPE 43 (11A) 1.0 Normal [facility] Comment on above: Performed By: #### 5 43, 542, 545, 539 #### [facility] [place] [address], [address] [place] [address] Hall Supervisor: Lenin Larson MD #### 65937 #### [facility], [address] [place] Hall Supervisor: Sejal Johns MD,PhD,HENRIETTA #### 34271 #### [facility]/[place] [address] [facility] [address] [place] Hall Supervisor: Sherwin Jay M.D.,PhD SEROTYPE 5 (5) 4.8 Normal [facility] Comment on above: Performed By: #### 5 43, 542, 545, 539 #### [facility] [address], [address] [place] [address] Hall Supervisor: Lenin Larson MD #### [id number] #### [facility], [address] [place] Hall Supervisor: Sejal Johns MD,PhD,HENRIETTA #### [id number] #### [facility]/[place] [address] [facility] [address] [place] Hall Supervisor: Sherwin Jay M.D.,PhD SEROTYPE 51 (7F 13.1 Normal [facility] Comment on above: Performed By: #### 5 43, 542, 545, 539 #### [facility] of [place] [address] [address] , [address] [place] [address] Hall Supervisor: Lenin Larson MD #### 13645 #### [facility], [address] [place] [address] Hall Supervisor: Sejal Johns MD,PhD,HENRIETTA #### 13718 #### [facility]/[place] [address] [facility] [place], [place] Hall Supervisor: Sherwin Jay M.D.,PhD SEROTYPE 54 15B) 3.0 Normal [facility] Comment on above: Performed By: #### 5 43, 542, 545, 539 #### [facility] of [place] [address] [address] , [address] [place] [address] Hall Supervisor: Lenin Larson MD #### 42111 #### [facility], [address] [place] [address] Hall Supervisor: Sejal Johns MD,PhD,HENRIETTA #### 18507 #### [facility]/[address] [place], [place] Hall Supervisor: Sherwin Jay M.D.,PhD SEROTYPE 56 18C) 18.3 Normal [facility] Comment on above: Performed By: #### 5 43, 542, 545, 539 #### [facility] of [place] [address] [place] , [address] [place] [address] Hall Supervisor: Lenin Larson MD #### 95431 #### [facility], [address] [facility] [place] [address] Hall Supervisor: Sejal Johns MD,PhD,HENRIETTA #### 93059 #### [facility]/[address] [place] Hall Supervisor: Sherwin Jay M.D.,PhD SEROTYPE 57 (19A) 14.1 Normal [facility] Comment on above: Performed By: #### 5 43, 542, 545, 539 #### [facility] [address], [address] [place] [address] Hall Supervisor: Lenin Larson MD #### 40794 #### [facility], [address] [place] [address] Hall Supervisor: Sejal Johns MD,PhD,HENRIETTA #### 47727 #### [facility]/[address] [place] Hall Supervisor: Sherwin Jay M.D.,PhD SEROTYPE 68 (9V) 0.7 Normal [facility] Comment on above: Performed By: #### 5 43, 542, 545, 539 #### [facility] [address], [address] [place] [address] Hall Supervisor: Lenin Larson MD #### 63067 #### [facility], [address] [place], [place] Hall Supervisor: Sejal Johns MD,PhD,HENRIETTA #### 95853 #### [facility]/[address] [place], [place] Hall Supervisor: Sherwin Jay M.D.,PhD SEROTYPE 70 (33F) <0.3 [...] serotype-specific titers may have less robust responses. [employer] uses a multi-analyte immunodetection (MAID) method. The method employs the frenting flow cytometric system which measures multiple analytes [...] analytical performance characteristics have been determined by [employer]. It has not been cleared or approved by FDA. This assay has been validated pursuant to the CLIA regulations and used for clinical purposes. For additional information, please refer to http://education.[employer]lik[employer]/faq/CCX734 (This link is being provided for informational/ educational purposes only.) Performed By: #### 5 43, 542, 545, 539 #### [facility] [address], [address] [place] [address] Hall Supervisor: Lenin Larson MD #### 17520 #### [facility], [address] [place] [address] Hall Supervisor: Sejal Johns MD,PhD,HENRIETTA #### 18911 #### [facility] [address] [facility] [place] [address] Hall Supervisor: Sherwin Jay M.D.,PhD SEROTYPE 8 (8) <0.3 Normal [facility] Comment on above: Performed By: #### 5 43, 542, 545, 539 #### [facility] [address] [facility], [address] [place] [address] Hall Supervisor: Lenin Larson MD #### 89007 #### [facility], [address] [place] [address] Hall Supervisor: Sejal Johns MD,PhD,HENRIETTA #### 05567 #### [facility]/[address] [place], [place] Hall Supervisor: Sherwin Jay M.D.,PhD SEROTYPE 9 (9N) <0.3 Normal [facility] Comment on above: Performed By: #### 5 43, 542, 545, 539 #### [facility] [address], [address] [place] [address] Hall Supervisor: Lenin Larson MD #### 49717 #### [facility], [address] [place] [address] Hall Supervisor: Sejal Johns MD,PhD,HENRIETTA #### 74812 #### [facility] [address] [place] [address] [place], [place] Hall Supervisor: Sherwin Jay M.D.,PhD XR FOOT LEFT 3+ [...] planus deformity. Findings compatible with Charcot foot. 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 Business Department Chair fluoroscopic images demonstrate severe degenerative changes at [...] foot was positioned flat on the table. Business Department Chair fluoroscopic images demonstrate moderately severe degenerative changes [...] naviculocuneiform joints using fluoroscopic guidance. Workstation ID: [id number] Dictated by: SENAIT OCHOA on SunJul 16, 2020 8:33:46 AM EDT Transcribed by: SENAIT OCHOA on SunJul 16, 2020 8:33:46 AM EDT Finalized by: SENAIT OCHOA on SunJul 16, 2020 8:33:46 AM EDT Normal [facility] 2020 Degenerative changes without acute osseous abnormality. Workstation ID: [id number] [facility] EXAMINATION: XR ANKLE RIGHT 2 VIEWS; [...] diffuse soft tissue swelling about the forefoot. [facility] Interface, Rad In Fuji Speechq - [...] without acute osseous abnormality. Workstation ID: [id number] [facility] XR ANKLE RIGHT 2 VIEWSon XR [...] 09, 2020 12:49:55 PM EDT [facility] Comment on above: Order Comment: STAND [...] 09, 2020 12:49:55 PM EDT [facility] Comment on above: Order Comment: Injur [...] SunMarch 09, 2020 12:49:55 PM EDT Normal [facility] Comment on above: Order Comment: Injur y/Trauma or Illness?:Illness/Other How long have you had these symptoms (acute/chronic)?:Chronic Reason for exam?:Chroni B/L Foot pain Lt worse than Rt. Charcot History of cancer?:u Surgeries, chemotherapy, or radiation?:u Type of Exam?:Initial Additional signs and symptoms?:u XR FOOT LEFT 3+ VIEWS (STAND ANN)on 09-04-2019 Charcot changes of the midfoot are noted. No other acute abnormalities. [facility] Workstation ID: [id number] [facility] EXAMINATION: XR FOOT LEFT 3+ VIEWS [...] midfoot. No aggressive appearing erosive bony changes. [facility] Interface, Rad In Fuji Speechq - [...] midfoot are noted. No other acute abnormalities. [employer] Workstation ID: [id number] [facility] XR FOOT LEFT 3+ VIEWS (STANDARD) [...] midfoot are noted. No other acute abnormalities. [employer] Workstation ID: [id number] Dictated by: VALERY BETH on SunSep 04, 2019 2:30:50 PM EST Transcribed by: MARY PILLAI IN [employer] on SunSep 04, 2019 3:05:20 PM EST Finalized by: VALERY BETH on SunSep 04, 2019 3:27:26 PM EST Normal [facility] Comment on above: Order Comment: Injur [...] 3. No new findings. PRL/ads Workstation ID: [id number] [facility] EXAMINATION: XR FOOT LEFT 3+ VIEWS [...] by approximately 5 mm. This is stable. [facility] Interface, Rad In [employer] Speechq - 03/12/2019 1:23 PM EDT EXAMINATION: [...] 3. No new findings. [employer]/ads Workstation ID: [id number] [facility] MR COMPARISON IMPORTon 02-06 This order has been auto-finalized and does not contain a result. [facility] XR COMPARISON IMPORTon 02-06 This order has been auto-finalized and does not contain a result. [facility] Vital Signs Date Time Vital Sign Value Performing Clinician Marcel marie 09-30-2024 14:30-0500 Blood Pressure Location Christangeler SIRIA [facility] 09-30-2024 14:30-0500 Body temperature 98.6 [degF] Christopher BROWN [facility] 09-30-2024 14:30-0500 Diastolic blood pressure 70 mm[Hg] Christopher BROWN [facility] 09-30-2024 14:30-0500 Heart rate 78 /min Christopher BROWN [facility] 09-30-2024 14:30-0500 Respiratory rate 18 /min Christopher BROWN [facility] 09-30-2024 14:30-0500 SaO2% (BldA) [Mass fraction] 97 % Christopher BROWN [facility] 09-30-2024 14:30-0500 Systolic blood pressure 139 mm[Hg] Christopher BROWN [facility] 08-19-2024 15:42-0400 Blood Pressure Location Christhugh BEVERLY [facility] 08-19-2024 15:42-0400 Diastolic blood pressure 78 mm[Hg] Christopher BROWN [facility] 08-19-2024 15:42-0400 Heart rate 81 /min Christopher BROWN [facility] 08-19-2024 15:42-0400 Respiratory rate 16 /min Christopher BROWN [facility] 08-19-2024 15:42-0400 SaO2% (BldA) [Mass fraction] 96 % Mara BEVERLY [facility] 08-19-2024 15:42-0400 Systolic blood pressure 112 mm[Hg] Mara BEVERLY [facility] 08-19-2024 14:29-0400 Blood Pressure Location Mara BEVERLY [facility] 08-19-2024 14:29-0400 Body temperature 98.06 [degF] Mara BEVERLY [facility] 08-19-2024 14:29-0400 Diastolic blood pressure 78 mm[Hg] Michellehugh BEVERLY [facility] 08-19-2024 14:29-0400 Heart rate 81 /min Michellehugh BEVERLY [facility] 08-19-2024 14:29-0400 SaO2% (BldA) [Mass fraction] 96 % Mara BEVERLY [facility] 08-19-2024 14:29-0400 Systolic blood pressure 112 mm[Hg] Michellehugh BEVERLY [facility] 07-10-2024 10:09-0400 Body height 177.8 cm Melva Grimaldo DO Work Phone: [facility] 07-10-2024 10:09-0400 Body mass index (BMI) [Ratio] 39.46 kg/m2 Melva Grimaldo DO Work Phone: [facility] 07-10-2024 10:09-0400 Body weight 124.74 kg Melva Grimaldo DO Work Phone: [facility] 05-12-2024 18:54-0400 Blood Pressure Location Mara SIRIA [facility] 05-12-2024 18:54-0400 Diastolic blood pressure 80 mm[Hg] Christangeler BROWN [facility] 05-12-2024 18:54-0400 Heart rate 67 /min Christangeler BROWN [facility] 05-12-2024 18:54-0400 Respiratory rate 20 /min Christangeler BROWN [facility] 05-12-2024 18:54-0400 SaO2% (BldA) [Mass fraction] 98 % Mara BEVERLY [facility] 05-12-2024 18:54-0400 Systolic blood pressure 130 mm[Hg] Mara BEVERLY [facility] 04-08-2024 13:15-0400 Blood Pressure Location EMELYN POLK [facility] 04-08-2024 13:15-0400 Diastolic blood pressure 76 mm[Hg] EMELYN POLK [facility] 04-08-2024 13:15-0400 Heart rate 65 /min EMELYN POLK [facility] 04-08-2024 13:15-0400 SaO2% (BldA) [Mass fraction] 98 % EMELYN POLK [facility] 04-08-2024 13:15-0400 Systolic blood pressure 138 mm[Hg] EMELYN POLK [facility] 03-24-2024 23:56-0400 Diastolic blood pressure 82 mm[Hg] Yuniel Ninfa [facility] 03-24-2024 23:56-0400 Heart rate 77 /min Yuniel Ninfa [facility] 03-24-2024 23:56-0400 Mean blood pressure 99 mm[Hg] Yuniel Ninfa [facility] 03-24-2024 23:56-0400 Respiratory rate 14 /min Yuniel Ninfa [facility] 03-24-2024 23:56-0400 SaO2% (BldA) [Mass fraction] 96 % Yuniel Ninfa [facility] 03-24-2024 23:56-0400 Systolic blood pressure 132 mm[Hg] Yuniel Ninfa [facility] 03-24-2024 23:24-0400 Heart rate 80 /min Yuniel Ninfa [facility] 03-24-2024 23:24-0400 Respiratory rate 20 /min Yuniel Ninfa [facility] 03-24-2024 23:15-0400 Heart rate 81 /min Yuniel Ninfa [facility] 03-24-2024 23:15-0400 Respiratory rate 20 /min Yuniel Ninfa [facility] 03-24-2024 23:15-0400 SaO2% (BldA) [Mass fraction] 99 % Yuniel Ninfa [facility] 03-24-2024 22:50-0400 Body temperature 98.24 [degF] Yuniel Ninfa [facility] 03-24-2024 22:50-0400 Diastolic blood pressure 75 mm[Hg] Yuniel Ninfa [facility] 03-24-2024 22:50-0400 Heart rate 86 /min Yuniel Ninfa [facility] 03-24-2024 22:50-0400 Respiratory rate 24 /min Yuniel Ninfa [facility] 03-24-2024 22:50-0400 SaO2% (BldA) [Mass fraction] 99 % Yuniel Ninfa [facility] 03-24-2024 22:50-0400 Systolic blood pressure 151 mm[Hg] Yuniel Ninfa [facility] 03-21-2024 14:41-0400 Blood Pressure Location Christopher BROWN [facility] 03-21-2024 14:41-0400 Body temperature 98.24 [degF] Christopher BROWN [facility] 03-21-2024 14:41-0400 Diastolic blood pressure 80 mm[Hg] Christopher BROWN [facility] 03-21-2024 14:41-0400 Heart rate 70 /min Christopher BROWN [facility] 03-21-2024 14:41-0400 Respiratory rate 16 /min Christopher BROWN [facility] 03-21-2024 14:41-0400 SaO2% (BldA) [Mass fraction] 97 % Christopher BROWN [facility] 03-21-2024 14:41-0400 Systolic blood pressure 136 mm[Hg] Christopher BROWN [facility] 03-10-2024 18:42-0400 Diastolic blood pressure 86 mm[Hg] Christopher BROWN [facility] 03-10-2024 18:42-0400 Mean blood pressure 103 mm[Hg] Christopher BROWN [facility] 03-10-2024 18:42-0400 Systolic blood pressure 138 mm[Hg] Christopher BROWN [facility] 03-10-2024 18:07-0400 Blood Pressure Location Christopher BROWN [facility] 03-10-2024 18:07-0400 Body temperature 98.24 [degF] Christopher BROWN [facility] 03-10-2024 18:07-0400 Diastolic blood pressure 90 mm[Hg] Christopher BROWN [facility] 03-10-2024 18:07-0400 Heart rate 77 /min Christopher BROWN [facility] 03-10-2024 18:07-0400 Respiratory rate 20 /min Christopher BROWN [facility] 03-10-2024 18:07-0400 SaO2% (BldA) [Mass fraction] 98 % Christopher BROWN [facility] 03-10-2024 18:07-0400 Systolic blood pressure 140 mm[Hg] Christopher BROWN [facility] 12-10-2023 18:36-0500 Blood Pressure Location Christopher BROWN [facility] 12-10-2023 18:36-0500 Diastolic blood pressure 80 mm[Hg] Christopher BROWN [facility] 12-10-2023 18:36-0500 Heart rate 77 /min Christopher BROWN [facility] 12-10-2023 18:36-0500 Respiratory rate 16 /min Christopher BROWN [facility] 12-10-2023 18:36-0500 SaO2% (BldA) [Mass fraction] 96 % Christopher BROWN [facility] 12-10-2023 18:36-0500 Systolic blood pressure 132 mm[Hg] Christopher BROWN [facility] 10-17-2023 14:46-0500 Blood Pressure Location Christhugh BROWN [facility] 10-17-2023 14:46-0500 Body temperature 97.88 [degF] Christopher BROWN [facility] 10-17-2023 14:46-0500 Diastolic blood pressure 66 mm[Hg] Christopher BROWN [facility] 10-17-2023 14:46-0500 Heart rate 65 /min Christopher BROWN [facility] 10-17-2023 14:46-0500 SaO2% (BldA) [Mass fraction] 97 % Christangeler BROWN [facility] 10-17-2023 14:46-0500 Systolic blood pressure 128 mm[Hg] Christopher BROWN [facility] 05-17-2023 14:00-0400 Hourly Rounding Melva Grimaldo [facility] 05-17-2023 12:00-0400 Hourly Rounding Melva Grimaldo [facility] 05-17-2023 12:00-0400 Promise to Return Melva Grimaldo [facility] 05-17-2023 11:57-0400 Hourly Rounding Melva Grimaldo [facility] 05-17-2023 11:57-0400 Promise to Return Melva Grimaldo [facility] 05-17-2023 11:37-0400 Heart rate 69 /min Melva Grimaldo [facility] 05-17-2023 11:37-0400 SaO2% (BldA) [Mass fraction] 97 % Melva Grimaldo [facility] 05-17-2023 11:37-0400 Diastolic blood pressure 66 mm[Hg] Melva Grimaldo [facility] 05-17-2023 11:37-0400 Mean blood pressure 83 mm[Hg] Melva Grimaldo [facility] 05-17-2023 11:37-0400 Systolic blood pressure 117 mm[Hg] Melva Grimaldo [facility] 05-17-2023 11:37-0400 Body temperature 98.06 [degF] Melva Grimaldo [facility] 05-17-2023 10:06-0400 Promise to Return Melva Grimaldo [facility] 05-17-2023 08:47-0400 Heart rate 70 /min Melva Grimaldo [facility] 05-17-2023 08:47-0400 SaO2% (BldA) [Mass fraction] 96 % Melva Grimaldo [facility] 05-17-2023 08:47-0400 Diastolic blood pressure 66 mm[Hg] Melva Grimaldo [facility] 05-17-2023 08:47-0400 Mean blood pressure 79 mm[Hg] Melva Grimaldo [facility] 05-17-2023 08:47-0400 Systolic blood pressure 105 mm[Hg] Melva Jc [facility] 05-17-2023 08:47-0400 Body temperature 97.7 [degF] Melva Jc [facility] 05-17-2023 08:11-0400 Heart rate 74 /min Melva Jc [facility] 05-17-2023 08:11-0400 SaO2% (BldA) [Mass fraction] 97 % Melva Jc [facility] 05-17-2023 04:30-0400 Blood Pressure Location Melva Jc [facility] 05-17-2023 04:30-0400 Body temperature 98.06 [degF] Melva Jc [facility] 05-17-2023 04:30-0400 Diastolic blood pressure 74 mm[Hg] Melva Jc [facility] 05-17-2023 04:30-0400 Mean blood pressure 93 mm[Hg] Melva Jc [facility] 05-17-2023 04:30-0400 Respiratory rate 18 /min Melva Jc [facility] 05-17-2023 04:30-0400 Systolic blood pressure 130 mm[Hg] Melva Grimaldo [facility] 05-17-2023 02:18-0400 Body temperature 97.52 [degF] Melva Grimaldo [facility] 05-17-2023 02:18-0400 Mean blood pressure 85 mm[Hg] Melva Grimaldo [facility] 05-16-2023 23:38-0400 Body temperature 97.34 [degF] Melva Grimaldo [facility] 05-16-2023 23:38-0400 Mean blood pressure 95 mm[Hg] Melva Grimaldo [facility] 05-16-2023 23:38-0400 Respiratory rate 17 /min Melva Grimaldo [facility] 05-16-2023 20:25-0400 Respiratory rate 16 /min Melva Grimaldo [facility] 05-16-2023 20:08-0400 Respiratory rate 16 /min Melva Grimaldo [facility] 05-16-2023 16:52-0400 Body temperature 97.34 [degF] Melva Grimaldo [facility] 05-16-2023 16:52-0400 Respiratory rate 12 /min Melva Grimaldo [facility] 05-16-2023 16:40-0400 Respiratory rate 16 /min Melva Grimaldo [facility] 05-16-2023 16:27-0400 Body temperature 97.34 [degF] Melva Grimaldo [facility] 05-16-2023 12:15-0400 Blood Pressure Location Melva Grimaldo [facility] 05-16-2023 12:12-0400 Heart rate 70 /min Melva Grimaldo [facility] 03-23-2023 10:32-0400 Blood Pressure Location Mara BEVERLY [facility] 03-23-2023 10:32-0400 Diastolic blood pressure 74 mm[Hg] Mara BEVERLY [facility] 03-23-2023 10:32-0400 Heart rate 76 /min Mara BEVERLY [facility] 03-23-2023 10:32-0400 Respiratory rate 20 /min Mara BEVERLY [facility] 03-23-2023 10:32-0400 SaO2% (BldA) [Mass fraction] 98 % Michellehugh SIRIA [facility] 03-23-2023 10:32-0400 Systolic blood pressure 132 mm[Hg] Michellehugh BEVERLY [facility] 01-19-2023 17:36-0400 Diastolic blood pressure 96 mm[Hg] Robyn David [facility] 01-19-2023 17:36-0400 Mean blood pressure 113 mm[Hg] Robyn David [facility] 01-19-2023 17:36-0400 Systolic blood pressure 148 mm[Hg] Robyn David [facility] 01-19-2023 16:43-0400 Blood Pressure Location Robyn David [facility] 01-19-2023 16:43-0400 Diastolic blood pressure 100 mm[Hg] Robyn David [facility] 01-19-2023 16:43-0400 Heart rate 87 /min Robyn David [facility] 01-19-2023 16:43-0400 Respiratory rate 20 /min Robyn David [facility] 01-19-2023 16:43-0400 SaO2% (BldA) [Mass fraction] 97 % Robyn David [facility] 01-19-2023 16:43-0400 Systolic blood pressure 150 mm[Hg] Robyn David [facility] 08-22-2022 09:41-0400 Diastolic blood pressure 66 mm[Hg] Nathaly TURCIOS [facility] 08-22-2022 09:41-0400 Mean blood pressure 92 mm[Hg] Nathalyyon TURCIOS [facility] 08-22-2022 09:41-0400 Systolic blood pressure 145 mm[Hg] Nathalyyon TURCIOS [facility] 08-22-2022 09:38-0400 Blood Pressure Location Nathaly TURCISO [facility] 08-22-2022 09:38-0400 Diastolic blood pressure 71 mm[Hg] Nathaly TURCIOS [facility] 08-22-2022 09:38-0400 Heart rate 69 /min Nathalyyon TURCIOS [facility] 08-22-2022 09:38-0400 Respiratory rate 18 /min Nathalyyon TURCIOS [facility] 08-22-2022 09:38-0400 SaO2% (BldA) [Mass fraction] 96 % Nathaly TURCIOS [facility] 08-22-2022 09:38-0400 Systolic blood pressure 147 mm[Hg] Nathaly TURCIOS [facility] 08-12-2022 12:38-0400 Blood Pressure Location Kim TAMEZ [facility] 08-12-2022 12:38-0400 Body temperature 98.42 [degF] Kim TAMEZ [facility] 08-12-2022 12:38-0400 Diastolic blood pressure 86 mm[Hg] Kim TAMEZ [facility] 08-12-2022 12:38-0400 Heart rate 65 /min Kim TAMEZ [facility] 08-12-2022 12:38-0400 SaO2% (BldA) [Mass fraction] 97 % Kim TAMEZ [facility] 08-12-2022 12:38-0400 Systolic blood pressure 134 mm[Hg] Kim TAMEZ [facility] 06-28-2022 09:21-0400 Diastolic blood pressure 77 mm[Hg] Nathalyyon TURCIOS [facility] 06-28-2022 09:21-0400 Mean blood pressure 107 mm[Hg] Nathalyyon LOPEZG [facility] 06-28-2022 09:21-0400 Systolic blood pressure 168 mm[Hg] Nathalyyon LOPEZG [facility] 06-28-2022 09:10-0400 Blood Pressure Location Nathalyyon LOPEZG [facility] 06-28-2022 09:10-0400 Diastolic blood pressure 76 mm[Hg] Nathalyyon LOPEZG [facility] 06-28-2022 09:10-0400 Heart rate 60 /min Nathaly STANG [facility] 06-28-2022 09:10-0400 Respiratory rate 18 /min Nathalyyon LOPEZG [facility] 06-28-2022 09:10-0400 SaO2% (BldA) [Mass fraction] 100 % Nathaly STANG [facility] 06-28-2022 09:10-0400 Systolic blood pressure 172 mm[Hg] Nathaly STANG [facility] 05-18-2022 15:40-0400 Diastolic blood pressure 75 mm[Hg] Dolores Gray [facility] 05-18-2022 15:40-0400 Mean blood pressure 101 mm[Hg] Dolores Christofferson [facility] 05-18-2022 15:40-0400 Systolic blood pressure 154 mm[Hg] Dolores Christofferson [facility] 05-18-2022 15:30-0400 Blood Pressure Location Dolores Christofferson [facility] 05-18-2022 15:30-0400 Diastolic blood pressure 75 mm[Hg] Dolores Christofferson [facility] 05-18-2022 15:30-0400 Heart rate 81 /min Dolores Christofferson [facility] 05-18-2022 15:30-0400 Respiratory rate 18 /min Dolores Christofferson [facility] 05-18-2022 15:30-0400 SaO2% (BldA) [Mass fraction] 100 % Dolores Christofferson [facility] 05-18-2022 15:30-0400 Systolic blood pressure 173 mm[Hg] Dolores Christofferson [facility] 04-25-2022 18:29-0400 Diastolic blood pressure 62 mm[Hg] Christopher BROWN [facility] [place] 04-25-2022 18:29-0400 Mean blood pressure 87 mm[Hg] Christopher BROWN [facility] [place] 04-25-2022 18:29-0400 Systolic blood pressure 136 mm[Hg] Christopher BROWN [facility] [place] 04-25-2022 18:12-0400 Blood Pressure Location Mara BEVERLY [facility] [place] 04-25-2022 18:12-0400 Body temperature 98.6 [degF] Mara BEVERLY [facility] [place] 04-25-2022 18:12-0400 Diastolic blood pressure 90 mm[Hg] Christopher BROWN [facility] [place] 04-25-2022 18:12-0400 Heart rate 76 /min Christopher SIRIA [facility] [place] 04-25-2022 18:12-0400 Respiratory rate 18 /min Mara BEVERLY [facility] [place] 04-25-2022 18:12-0400 SaO2% (BldA) [Mass fraction] 96 % Mara BEVERLY [facility] [place] 04-25-2022 18:12-0400 Systolic blood pressure 156 mm[Hg] Pandaer SIRIA [facility] [place] 03-14-2022 10:20-0400 Blood Pressure Location Christangeler BROWN [facility] [place] 03-14-2022 10:20-0400 Diastolic blood pressure 80 mm[Hg] Christopher BROWN [facility] [place] 03-14-2022 10:20-0400 Heart rate 74 /min Christopher BROWN [facility] [place] 03-14-2022 10:20-0400 Respiratory rate 20 /min Mara BEVERLY [facility] [place] 03-14-2022 10:20-0400 SaO2% (BldA) [Mass fraction] 95 % Mara BEVERLY [facility] [place] 03-14-2022 10:20-0400 Systolic blood pressure 130 mm[Hg] Mara BEVERLY [facility] [place] 07-15-2020 13:39-0400 BP Diastolic 61 mm[Hg] [facility] [place] [facility] 07-15-2020 13:39-0400 BP Systolic 126 mm[Hg] [facility] [place] [facility] 07-15-2020 13:39-0400 Pulse (Heart Rate) 67 /[facility] 07-15-2020 13:39-0400 Pulse Oximetry 96 % [facility] 07-15-2020 13:39-0400 Respiratory Rate 16 /min [facility] 07-13-2020 10:11-0400 BP Diastolic 75 mm[Hg] [facility] [place] [facility] 07-13-2020 10:11-0400 BP Systolic 140 mm[Hg] [facility] [place] [facility] 07-13-2020 10:00-0400 BMI (Body Mass Index) 39.89 kg/m2 [facility] 07-13-2020 10:00-0400 Body weight 126.1 kg [facility] 07-13-2020 10:00-0400 Height 177.8 cm [facility] 07-13-2020 10:00-0400 Pulse (Heart Rate) 67 /min [facility] [place] [facility] 06-14-2020 10:39-0400 BMI (Body Mass Index) 39.31 kg/m2 Carlos Carter [facility] 06-14-2020 10:39-0400 Body weight 124.29 kg Carlos Carter [facility] 06-14-2020 10:39-0400 BP Diastolic 80 mm[Hg] Carlos Carter [facility] 06-14-2020 10:39-0400 BP Systolic 114 mm[Hg] Carlos Carter [facility] 06-14-2020 10:39-0400 Height 177.8 cm Carlos Carter [facility] 06-14-2020 10:39-0400 Pulse (Heart Rate) 73 /min Carlos Carter [facility] 06-02-2020 14:37-0400 BMI (Body Mass Index) 39.39 kg/m2 Javier Fischer [facility] 06-02-2020 14:37-0400 Body weight 124.51 kg Javier Fischer [facility] 06-02-2020 14:37-0400 BP Diastolic 82 mm[Hg] Javier Drewo [facility] 06-02-2020 14:37-0400 BP Systolic 146 mm[Hg] Javier Drewo [facility] 06-02-2020 14:37-0400 Height 177.8 cm Javier Fischer [facility] 06-02-2020 14:37-0400 Pulse (Heart Rate) 71 /min Javier Fischer [facility] 06-02-2020 14:37-0400 Pulse Oximetry 96 % Javier Drewo [facility] 04-20-2020 13:51-0400 BMI (Body Mass Index) 38.31 kg/m2 [facility] 13:51-0400 Body weight 121.11 [facility]-20-2020 13:51-0400 BP Diastolic 85 mm[Hg] [place]ogel [place] [facility] 04-20-2020 13:51-0400 BP Systolic 151 mm[Hg[facility]-2020 13:51-0400 Height 177.8 cm [facility]-20-2020 13:51-0400 Pulse (Heart Rate) 61 /min [facility]-20-2020 13:51-0400 Pulse Oximetry 99 % [place] [facility] 2020 14:03-0400 BMI (Body Mass Index) 39.67 kg/m2 [facility] 2020 14:03-0400 Body weight 125.42 kg [facility] 2020 14:03-0400 BP Diastolic 78 mm[Hg] [facility] 2020 14:03-0400 BP Systolic 144 mm[Hg] [facility] 2020 14:03-0400 Height 177.8 cm [facility] 2020 14:03-0400 Pulse (Heart Rate) 72 /min [facility] 2020 14:03-0400 Pulse Oximetry 99 % [facility] 2020 10:32-0400 BMI (Body Mass Index) 40.89 kg/m2 Carlos Carter [facility] 2020 10:32-0400 Body weight 129.28 kg Carlos Carter [facility] 2020 10:32-0400 BP Diastolic 70 mm[Hg] Carlos Carter [facility] 2020 10:32-0400 BP Systolic 151 mm[Hg] Carlos Carter [facility] 2020 10:32-0400 Height 177.8 cm Carlos Carter [facility] 2020 10:32-0400 Pulse (Heart Rate) 69 /min Carlos Carter [facility] 09-04-2019 08:31-0500 BMI (Body Mass Index) 40.89 kg/m2 Carlos Carter [facility] 09-04-2019 08:31-0500 Body weight 129.28 kg Carlos Carter [facility] 09-04-2019 08:31-0500 BP Diastolic 84 mm[Hg] Carlos Carter [facility] 09-04-2019 08:31-0500 BP Systolic 147 mm[Hg] Carlos Carter [facility] 09-04-2019 08:31-0500 Height 177.8 cm Carlos Carter [facility] 09-04-2019 08:31-0500 Pulse (Heart Rate) 59 /min Carlos Carter [facility] 03-12-2019 10:07-0400 BMI (Body Mass Index) 40.89 kg/m2 Carlos Carter [facility] 03-12-2019 10:07-0400 BP Diastolic 87 mm[Hg] Carlos Carter [facility] 03-12-2019 10:07-0400 BP Systolic 146 mm[Hg] Carlos Carter [facility] 03-12-2019 10:07-0400 Height 177.8 cm Carlos Carter [facility] 03-12-2019 10:07-0400 Pulse (Heart Rate) 79 /min Carlos Carter [facility] 03-12-2019 10:07-0400 Weight 129.28 kg Carlos Carter [facility] 02-05-2019 14:07-0400 BMI (Body Mass Index) 40.89 kg/m2 Carlos Carter [facility] 02-05-2019 14:07-0400 BP Diastolic 70 mm[Hg] Carlos Carter [facility] 02-05-2019 14:07-0400 BP Systolic 120 mm[Hg] Carlos Carter [facility] 02-05-2019 14:07-0400 Height 177.8 cm Carlos Carter [facility] 02-05-2019 14:07-0400 Pulse (Heart Rate) 91 /min Carlos Carter [facility] 02-05-2019 14:07-0400 Weight 129.28 kg Carlos Carter [facility] Encounters Encounter Date Encounter Type Care Provider Facility Start: 08-20-2025 ambulatory Mara BEVERLY [facility]il [facility] Start: 03-05-2025 ambulatory Mara BEVERLY [facility]il [facility] Start: 11-20-2024 End: 11-20-2024 Bamboo flowsheet Melva Grimaldo DO Work Phone: [facility] Start: 11-20-2024 End: 11-20-2024 Bamboo flowsheet Melva Grimaldo DO Work Phone: [facility] Start: 09-30-2024 End: 09-30-2024 ambulatory Mara BEVERLY Facility:[facility] Start: 09-30-2024 End: 09-30-2024 Patient encounter procedure Mara BEVERLY [facility] [place] Start: 09-26-2024 End: 10-29-2024 ambulatory Mara BEVERLY Facility:CD:[id number] Start: 09-02-2024 End: 09-02-2024 ambulatory Julio Johnson Facility:[facility] Start: 09-02-2024 End: 09-02-2024 Departed Referred Julio Johnson DPM Work Phone: [facility] Start: 08-19-2024 End: 08-19-2024 ambulatory Mara BEVERLY Facility: [place] Start: 08-19-2024 End: 08-19-2024 Patient encounter procedure Michellehugh BEVERLY [facility] Start: 08-19-2024 End: 08-19-2024 Well adult monitoring check done Mara BEVERLY [facility] Start: 07-29-2024 End: 07-29-2024 Bamboo flowsheet Haily Shepard MD Work Phone: [facility] Start: 07-29-2024 End: 07-29-2024 Bamboo flowsheet Haily Shepard MD Work Phone: [facility] Start: 07-29-2024 End: 07-29-2024 ambulatory HAILY SHEPARD Not Available Start: 07-14-2024 End: 09-19-2024 Admission to same day surgery center Melva Grimaldo [facility] Start: 07-14-2024 End: 09-19-2024 ambulatory Melva Grimaldo [facility] Start: 07-10-2024 End: 07-10-2024 Patient encounter procedure Melva Grimaldo DO Work Phone: [facility] Comment on above: Artificial knee join t present, left (Primary Dx); Acute pain of right knee Start: 07-10-2024 End: 07-10-2024 ambulatory MELVA GRIMALDO Not Available Start: 07-10-2024 End: 07-10-2024 ambulatory MELVA GRIMALDO Not Available Start: 06-19-2024 End: 11-03-2024 ambulatory Mara BEVERLY [facility] Start: 06-19-2024 End: 10-27-2024 Recurring Mara BEVERLY [facility] Start: 05-21-2024 ambulatory Mara BEVERLY Facil ity:[facility] [place] Start: 05-14-2024 End: 05-14-2024 ambulatory Mara BEVERLY [facility] Start: 05-14-2024 End: 05-14-2024 Patient encounter procedure Mara BEVERLY [facility] Start: 05-13-2024 End: 05-13-2024 ambulatory MELVA GRIMALDO Not Available Start: 05-12-2024 End: 05-12-2024 Lab Drop off Mara BEVERLY [facility] Start: 05-12-2024 End: 05-12-2024 ambulatory Mara BEVERLY [facility] Start: 05-12-2024 End: 05-12-2024 Patient encounter procedure Mara BEVERLY [facility] [place] Start: 04-14-2024 End: 04-14-2024 ambulatory Mara BEVERLY [facility] Start: 04-14-2024 End: 04-14-2024 Patient encounter procedure Mara BEVERLY [facility] Start: 04-08-2024 End: 04-08-2024 ambulatory EMELYN POLK Facility:[facility] [place] Start: 04-08-2024 End: 04-08-2024 Patient encounter procedure EMELYN POLK [facility] Start: 03-24-2024 End: 03-25-2024 Emergency department patient visit Yuniel Ocasio [facility] Start: 03-21-2024 End: 03-21-2024 ambulatory Mara BEVERLY Facility: [place] Start: 03-21-2024 End: 03-21-2024 Patient encounter procedure Mara BEVERLY [facility] [place] Start: 03-10-2024 End: 03-10-2024 ambulatory Mara BEVERLY Facility: [place] Start: 03-10-2024 End: 03-10-2024 Patient encounter procedure Mara BEVERLY [facility] [place] Start: 12-10-2023 End: 12-10-2023 ambulatory Mara BEVERLY Facility: [place] Start: 12-10-2023 End: 12-10-2023 Patient encounter procedure Mara BEVERLY [facility] [place] Start: 10-18-2023 End: 10-18-2023 ambulatory DOLORES M MEDVES Not Available Start: 10-17-2023 End: 10-17-2023 ambulatory Mara BEVERLY Facility: [place] Start: 10-17-2023 End: 10-17-2023 Patient encounter procedure Mara BEVERLY [facility] Start: 10-16-2023 End: 10-16-2023 ambulatory BUBBA [...] to same day surgery center Melva Grimaldo [facility] Start: 03-26-2023 End: 03-26-2023 Patient encounter procedure Mara BEVERLY [facility] Start: 03-23-2023 End: 03-23-2023 Encounter for general adult medical examination with abnormal findings Mara BEVERLY [facility] [place] Start: 03-23-2023 End: 03-23-2023 Patient encounter procedure Mara BEVERLY [facility] [place] Start: 01-19-2023 End: 01-19-2023 Patient encounter procedure Robyn Hernandez [facility] [place] Start: 08-29-2022 End: 08-29-2022 Encounter for general adult medical examination with abnormal findings Mara BEVERLY [facility] [place] Start: 08-29-2022 End: 08-29-2022 Patient encounter procedure Michellehugh SIRIA [facility] [place] Start: 08-22-2022 End: 08-22-2022 Patient encounter procedure Nathaly TURCIOS [facility] Start: 08-12-2022 End: 08-12-2022 Patient encounter procedure Kimmadeleine TAMEZ [facility] Start: 08-02-2022 End: 08-03-2022 ambulatory [facility] Mahendra [facility] Facility: Start: 07-20-2022 End: 07-20-2022 Patient encounter procedure Nathaly TURCIOS [facility] Start: 06-28-2022 End: 06-28-2022 Patient encounter procedure Nathaly TURCIOS [facility] Start: 05-18-2022 End: 05-18-2022 Patient encounter procedure Dolores Gray [facility] Start: 04-25-2022 End: 04-25-2022 Patient encounter procedure Pandagreer SIRIA [facility] [place] Start: 03-14-2022 End: 03-14-2022 Patient encounter procedure Pandagreer SIRIA [facility] [place] Start: 09-19-2021 End: 02-06-2022 Recurring SALOME EDMONDS [facility] Start: 12-23-2020 End: 12-23-2020 Orders Only Shaylee Saeed Ewelina Work Phone: [facility] Start: 08-13-2020 End: 08-14-2020 Patient encounter procedure CARLOS CARTER [facility] Ambulatory Start: 07-15-2020 End: 07-15-2020 Patient encounter procedure CARLOS CARTER [facility] Ambulatory Start: 07-15-2020 End: 07-15-2020 Subsequent hospital visit by physician Senait Ochoa Work Phone: [facility] Comment on above: Charcot's joint of l eft foot; Charcot's joint of left foot Start: 07-13-2020 End: 07-17-2020 Patient encounter procedure CARLOS CARTER [facility] Start: 07-13-2020 End: 07-18-2020 Office outpatient new 45 minutes Carlos Carter Work Phone: [facility] Comment on above: Charcot's joint of l eft foot (Primary Dx); Neuropathy, idiopathic; Pain Start: 06-14-2020 End: 06-14-2020 Patient encounter procedure CARLOS CARTER [facility] Ambulatory Start: 06-14-2020 End: 06-14-2020 Office outpatient visit 15 minutes Carlos Carter Work Phone: [facility] Comment on above: Charcot's joint of l eft foot (Primary Dx); Neuropathy, idiopathic Start: 06-02-2020 End: 06-02-2020 Patient encounter procedure JAVIER RANDI PRYKHODKO [facility] Ambulatory Start: 06-02-2020 End: 06-02-2020 Office outpatient visit 25 minutes Javier Lakeh Prykhodko Work Phone: [facility] Comment on above: History functional e ndoscopic sinus surgery (FESS) with revision (Primary Dx); Sinus pressure; Chronic allergic rhinitis; Fatigue, unspecified type Start: 04-20-2020 End: 04-20-2020 Patient encounter procedure JASPREET CONTI [facility] Ambulatory Start: 04-20-2020 End: 04-20-2020 Office outpatient visit 15 minutes Jaspreet Conti Work Phone: [facility] Comment on above: Recurrent sinusitis (Primary Dx); Chronic rhinitis Start: 2020 End: 2020 Patient encounter procedure MARA BEVERLY [facility] Start: 2020 End: 2020 Office outpatient new 30 minutes Mara Beverly Work Phone: [facility] Comment on above: Chronic rhinitis (Pr imary Dx); Acute recurrent frontal sinusitis; Fatigue, unspecified type Start: 2020 End: 03-10-2020 Patient encounter procedure CARLOS CARTER [facility] Start: 2020 End: 2020 Subsequent hospital visit by physician Carlos Carter Work Phone: [facility] Comment on above: Pain Start: 2020 End: 2020 Office outpatient visit 15 minutes Carlos Carter Work Phone: [facility] Comment on above: Charcot's joint of l eft foot (Primary Dx); Neuropathy, idiopathic Start: 01-13-2020 Patient encounter procedure JAVIER RAMBOCHELY PRYKHODKO [facility] Start: 09-04-2019 End: 09-05-2019 Patient encounter procedure CARLOS CARTER [facility] Start: 09-04-2019 End: 09-04-2019 Subsequent hospital visit by physician Carlos Carter Work Phone: [facility] Comment on above: Charcot's joint of l eft foot Start: 09-04-2019 End: 09-04-2019 Office outpatient visit 15 minutes Carlos Carter Work Phone: [facility] Comment on above: Charcot's joint of l eft foot (Primary Dx); Neuropathy, idiopathic Start: 03-12-2019 End: 03-12-2019 Patient encounter procedure Carlosarabella Foremanbam Carter Work Phone: [facility] Comment on above: Pain Start: 03-12-2019 End: 03-12-2019 Office outpatient visit 15 minutes Carlos Carter Work Phone: [facility] Comment on above: Charcot's joint of l eft foot (Primary Dx) Start: 02-06-2019 End: 02-07-2019 Patient encounter procedure PROVIDER NOT IN [facility] Start: 02-06-2019 End: 02-06-2019 Patient encounter procedure Provider Not In [facility] Radiology External Films Comment on above: Arrived Start: 02-05-2019 End: 02-05-2019 Subsequent hospital visit by physician Carlos Zabrinabam Carter Work Phone: [facility] Comment on above: Pain Start: 02-05-2019 End: 02-05-2019 Office outpatient new 30 minutes Carlos Carter Work Phone: [facility] Comment on above: Charcot's joint of l eft foot (Primary Dx); Neuropathy, idiopathic Procedures Date Procedure Procedure Detail Performing Clinician Start: 07-29-2024 End: 07-29-2024 [facility] medical xm&eval compre new pt 1/> vst Type 2 diabetes mellitus without complication, without long-term current use of insulin ([facility]) Haily Shepard MD Work Phone: Comment on above: Type 2 diabetes anisa itus without complication, without long- term current use of insulin ([facility]) (Primary Dx); Pseudophakia Start: 07-10-2024 Radiologic examinati on knee 3 views Melva Grimaldo DO Work Phone: Start: 07-10-2024 Radiologic examinati on knee 3 views Melva Grimaldo DO Work Phone: Start: 05-16-2023 Total knee replacement Melva Grimaldo Start: 04-02-2023 Arthroplasty of knee Mi chanel Grimaldo Start: 08-18-2021 Colonoscopy SALOME BLACKBURN I Start: 01-10-2021 Structure of left fo ot (body structure) SALOME EDMONDS Comment on above: reconstruction surge ry of left foot per dr johnson @ [facility]. Start: 08-18-2020 Radiofrequency dener vation of spinal facet joint of lumbar vertebra AMVICENTA EDMONDS Comment on above: bilat L3-L5 RFA- 60% relief Start: 07-21-2020 Injection of facet j oint using fluoroscopic guidance AMAR GREY Comment on above: B/L L3-L4 MBB 50% re lief for 8-10 hours Start: 07-07-2020 Injection of facet j oint using fluoroscopic guidance AMAR GREY Comment on above: L3-L5 80% relief Start: 07-05-2020 Cataract extraction and insertion of intraocular lens AMAR GREY Start: 03-10-2020 Injection of sacroil iac joint [...] ef Start: 09-04-2019 X-ray of left foot Rashad y Zabrina Exten Work Phone: Start: 08-27-2019 Sacroiliac joint injection 7 AMAR GREY Comment on above: B/L 80% relief. Start: 05-28-2019 Injection of sacroil iac joint using fluoroscopic guidance AMAR GREY Comment on above: B/L 75% relief Start: 03-12-2019 X-ray of left foot Rashad y Zabrina Exten Work Phone: Start: 02-06-2019 Radiographic imaging procedure External Transcribed Start: 02-06-2019 Magnetic resonance imaging External Transcribed Start: 02-05-2019 Injection of sacroil iac joint using fluoroscopic guidance SALOME EDMONDS Comment on above: 90% relief since [...] 07-17-2018 Transforaminal Epidu ral Steroid Injection 12 SALOME EDMONDS Comment on above: Left -70% relief x o ne month. Pt. reports 40% relief today. Start: 06-12-2018 epidural steroid injection 13 SALOME EDMONDS Comment on above: L5-S1 60% relief for 3 weeks Start: 04-10-2018 transforaminal epidu ral steroid injection 14 HybrigenicsVICENTA EDMONDS Comment on above: left L5+S1 80% relie f to present Start: 04-01-2018 Cataract extraction and insertion of intraocular lens DAVIANVICENTA GREY Comment on above: right eye Start: 04-18-2017 transforaminal stero id injection 16 AMVICENTA EDMONDS Comment on above: L5-S1 left side 80% relief for 1 month. Start: 07-11-2016 EVLT LGSV DAVIANVICENTA WILFRIDOOKSANAT I Start: 03-29-2016 ABHINAV lumbosacral 17 AMVICENTA GREY Comment on above: L5-S1 80% relief [...] Trasforaminal sterio d injection 23, 24 AMVICENTA ANNAGREY Comment on above: Left L5-S1 80% relief for 6 wee ks Start: 11-20-2014 Transforaminal steri od injection 25, 26 AMAR GREY Comment on above: Left L5-S1 [...] 02/27 Hysterectomy SALOME EDMONDS Comment on above: 2008 sinus surgeries 34 SALOME ABDI Comment on above: x2; 2007, 2011 Swelling of first metatarsophalangeal joint of hallux (disorder) SALOME EDMONDS Comment on above: removal Transforaminal epidu ral steroid injection 35 SALOME EDMONDS Comment on above: L5-S1- 75% relief si nce Plan of Treatment Date Care Activity Detail Author Start: 02-17-2027 Tetanus vaccination Tetanus: Every 1 0yrs [facility] Start: 07-30-2025 End: 07-30-2025 Patient encounter procedure 07/30/2025 11:00 AM EDT Office Visit [facility] [address] [place] [phone] Haily Shepard MD [address] [place] [address] [facility] Start: 05-14-2025 End: 05-14-2025 Patient encounter procedure 05/14/2025 9:00 AM EDT Office Visit [facility] [address] [place] [id number] Melva Grimaldo, DO [address] [place] [address] [facility] Start: 11-20-2024 End: 11-20-2024 Patient encounter procedure 11/20/2024 9:30 AM EST Office Visit [facility] [address] [facility] [place] [phone] Melva Grimaldo, DO [address] [place] [address] Acute pain of right knee (Primary Dx) [facility] Comment on above: Acute pain of right knee (Primary Dx) Start: 07-29-2024 End: 07-29-2024 Patient encounter procedure [facility] Comment on above: Arrived Start: 06-22-2024 Influenza vaccination Influenza Vacc ine (#1) [facility] Start: 2024 Pneumococcal Vaccine : 65+ Years (1 of 1 - PCV) Pneumococcal Vaccine: 65+ Years (1 of 1 - PCV) [facility] Start: 06-22-2020 Influenza vaccinatio n given [facility] Start: 06-14-2020 End: 06-14-2020 Office Visit 06/14/2020 Office Visit Orthopedic Surgery Carlos Carter MD [address] [place] [address] [phone] [facility] Start: 06-02-2020 End: 06-02-2020 Office Visit 06/02/2020 Office Visit Otolaryngology Javier Fischer MD [address] [place] [address] [phone] [facility] Start: 04-20-2020 End: 04-20-2020 Office Visit 04/20/2020 Office Visit Otolaryngology [place] CNP [address] [place] [address] [phone] [facility] Start: 09-04-2019 End: 09-04-2019 Office Visit 09/04/2019 Office Visit Orthopedic Surgery Carlos Carter MD [address] [place] [address] [phone] [facility] Start: 06-22-2019 Influenza vaccinatio n given [facility] Start: 06-22-2018 Influenza vaccinatio n given SEQUENTIAL INFLUENZA VACCINE (#1) [facility] Start: 2009 Administration of he rpes zoster vaccine Zoster Vaccines (1 of 2) [facility] Start: 2009 Screening for malign ant neoplasm of colon [facility] Start: 1999 Screening for malign ant neoplasm of breast Mammogram [facility] Start: 1989 Screening for malign ant neoplasm of cervix [facility] Start: 1980 Screening for malign ant neoplasm of cervix Pap Smear [facility] Start: 1977 Hepatitis C antibody , confirmatory test Hepatitis C Screening [facility] Start: 1975 COVID-19 Vaccine (1 of 2) COVID-19 Vaccine (1 of 2) [facility] Start: 1974 HIV screening HIV Screening [facility] Start: 1971 Adolescent depressio n screening assessment Depression Screening (PHQ9) [facility] Start: 1962 History and physical examination, annual for health maintenance Wellness Visit [facility] Start: 1959 Hepatitis C antibody , confirmatory test HEPATITIS C SCREENING [facility] Start: 1959 Protein mass conc Mammogram [facility] Start: 1959 Screening for malign ant neoplasm of cervix PAP SMEAR [facility] Start: 1959 Screening for malign ant neoplasm of colon [facility] Start: 1959 [facility] Start: 1959 Tetanus vaccination TETANUS EVERY 10 YR [facility] End: 04-20-[address] Sinus Imaging Routine Recurrent sinusitis 1 Occurrences starting 04/20/2020 until 04/20/2021 [facility] Comment on above: 1 Occurrences starti ng 04/20/2020 until 04/20/2021 End: 07-13-2020 Epidural steroid injection VR Epidural Steroid Inj Imaging Routine Charcot's joint of left foot Once for 1 Occurrences starting 07/13/2020 until 07/13/2020 [facility] Comment on above: Once for 1 Occurrenc es starting 07/13/2020 until 07/13/2020 Epidural steroid injection VR Epidural Steroid Inj Imaging Routine Charcot's joint of left foot 07/15/2020 1:42 PM EDT [facility] End: 02-05-2019 X-ray of left foot XR Foot Left 3+ Views (Standard) Routine Pain Once for 1 Occurrences starting 02/05/2019 until 02/05/2019 [facility] Comment on above: Once for 1 Occurrenc es starting 02/05/2019 until 02/05/2019 X-ray of left foot XR Foot Left 3+ Views (Standard) Routine Pain 02/05/2019 2:30 PM EDT [facility] End: 02-05-2019 XR Ankle Left 2 Views XR Ankle Left 2 Views Routine Pain Once for 1 Occurrences starting 02/05/2019 until 02/05/2019 [facility] Comment on above: Once for 1 Occurrenc es starting 02/05/2019 until 02/05/2019 XR Ankle Left 2 Views XR Ankle L eft 2 Views Routine Pain 02/05/2019 2:24 PM EDT [facility] Immunizations Immunization Date Immunization Notes Care Provider Fa marcus 10-06-2023 influenza virus vaccine, unspecified formulation Mara BEVERLY [facility] 09-21-2023 influenza virus vaccine, unspecified formulation Mara BEVERLY [facility] 06-28-2023 zoster vaccine recombinant Mara BEVERLY [facility] 03-27-2023 zoster vaccine recombinant Mara BEVERLY [facility] 09-18-2022 COVID-19, mRNA, LNP-S, bivalent, PF, 50 mcg/0.5 mL dose Robyn Hernandez [facility] 09-18-2022 influenza, injectable, quadrivalent, preservative free Robyn David [facility] 09-20-2021 COVID-19, mRNA, LNP-S, PF, 100 mcg or 50 mcg dose SALOME EDMONDS [facility] 08-19-2021 influenza virus vaccine, unspecified formulation; Translations: [Fluzone PF Quadrivalent ] SALOME EDMONDS [facility] Comment on above: Reason for Medicatio n: Prophylaxis 01-21-2021 COVID-19, mRNA, LNP-S, PF, 30 mcg/0.3 mL dose; Translations: [[employer]-Zeolife COVID-19 Vaccine] SALOME EDMONDS [facility] Comment on above: Reason for Medicatio n: Prophylaxis 12-24-2020 COVID-19, mRNA, LNP-S, PF, 30 mcg/0.3 mL dose; Translations: [Pfizer-BioNTech COVID-19 Vaccine] SALOME EDMONDS [facility] Comment on above: Reason for Medicatio n: Prophylaxis 08-30-2020 influenza virus vaccine, unspecified formulation SALOME EDMONDS [facility] 08-04-2020 influenza virus vaccine, unspecified formulation Kim TAMEZ [facility] 09-01-2019 influenza virus vaccine, live, attenuated, for intranasal use SALOME EDMONDS [facility] 09-02-2018 influenza virus vaccine, unspecified formulation SALOME EDMONDS [facility] 02-17-2017 tetanus toxoid, reduced diphtheria toxoid, and acellular pertussis vaccine, adsorbed; Translations: [Adacel (Tdap)] VICENTA GREY [facility] NEGATED: Highlighted row has not occurred!08-19-2024 influenza virus vaccine, unspecified formulation Mara BEVERLY [facility] [place] NEGATED: Highlighted row has not occurred!08-20-2020 influenza virus vaccine, unspecified formulation SALOME EDMONDS [facility] Payers Date Payer Category Payer Self-pay 2023 Medicare (Managed Care) [facility] [id number] 2023 Unknown [employer] [id number] 2023-Present [address] [place] [id number] 2023 Medicare [id number] 2019 Unknown [employer] S UPERMED PPO xxxxxxxxxxxx 2019-Present xxxxxxxxxxxx [id number] 2019 Unknown M[employer] S UPERMED PPO [id number] 2019-Present [id number] 2019 Unknown [id number] 2008 Unknown xxxxxxxxxx [id number] .[id number] 2008 Unknown [id number] 1959 Self-pay [id number] 1959 Unknown [id number] 2.16.840.1.163308.3.579.2 .900 1959 Unknown [id number] 2.16.840.1.864654.3.579.2 .900 1959 Unknown [id number] 2.16.840.1.144106.3.579.2 .903 1959 Unknown [id number] 2.16.840.1.014885.3.579.2 .90 1959 Unknown [id number] 2.16.840.1.589668.3.579.2 .903 1959 Unknown [id number] 2.16.840.1.209712.3.579.2 .1959 Unknown [id number] 2.16.840.1.931734.3.579.2 .1959 Unknown [id number] 2.16.840.1.364781.3.579.2 .1959 Unknown [id number] 2.16.840.1.590478.3.579.2 .1959 Unknown [id number] 2.16.840.1.587053.3.579.2 .1959 Unknown [id number] 2.16.840.1.562606.3.579.2 1959 Unknown [id number] 2.16.840.1.684057.3.579.2 1959 Unknown [id number] 2.16840.1.169769.3.579.2 1959 Unknown [id number] 2.16.840.1.846304.3.579.2 .1959 Unknown [id number] 2.16.840.1.965299.3.579.2 .1959 Unknown [id number] 2.16.840.1.903534.3.579.2 .1959 Unknown [id number] 2.16.840.1.125394.3.579.2 .1959 Unknown [id number] 2.16.840.1.419378.3.579.2 .1959 Unknown [id number] 2.16.840.1.700909.3.579.2 59 1959 Unknown [id number] 2.16.840.1.917841.3.579.2 .72 1959 Unknown [id number] 2.16.840.1.089630.3.579.2 .727 1959 Unknown [id number] 2.16.840.1.674495.3.579.2 .727 1959 Unknown [id number] 2.16.840.1.551960.3.579.2 .1258 1959 Unknown [id number] 2.16.840.1.759232.3.579.2 .1258 1959 Unknown [id number] 2.16.840.1.811099.3.579.2 .1258 1959 Unknown [id number] 2.16.840.1.755901.3.579.2 .1258 1959 Unknown [id number] 2.16.840.1.648773.3.579.2 .1258 1959 Unknown [id number] 2.16.840.1.475473.3.579.2 .1258 1959 Unknown [id number] 2.16.840.1.242838.3.579.2 .1258 1959 Unknown [id number] 2.16.840.1.438759.3.579.2 .1258 1959 Unknown [id number] 2.16.840.1.517667.3.579.2 .1258 1959 Unknown [id number] 2.16.840.1.619927.3.579.2 .1258 1959 Unknown [id number] 2.16.840.1.192719.3.579.2 .1258 1959 Unknown [id number] 2.16.840.1.373119.3.579.2 .1258 1959 Unknown [id number] 2.16.840.1.468774.3.579.2 .1258 1959 Unknown [id number] 2.16.840.1.746849.3.579.2 .1258 1959 Unknown [id number] 2.16.840.1.200239.3.579.2 .1258 1959 Unknown [id number] 2.16.840.1.974974.3.579.2 .1258 1959 Unknown [id number] 2.16.840.1.014313.3.579.2 .1258 1959 Unknown [id number] 2.16.840.1.594356.3.579.2 .1258 1959 Unknown [id number] 2.16.840.1.796716.3.579.2 .1258 1959 Unknown [id number] 2.16.840.1.168538.3.579.2 .1258 1959 Unknown [id number] 2.16.840.1.440945.3.579.2 .1959 Unknown [id number] 2.16.840.1.134082.3.579.2 .1959 Unknown [id number] 2.16.840.1.103477.3.579.2 .1959 Unknown [id number] 2.16.840.1.036304.3.579.2 .1959 Unknown [id number] 2.16.840.1.481171.3.579.2 .1959 Unknown [id number] 2.16.840.1.935808.3.579.2 .1959 Unknown [id number] 2.16.840.1.555209.3.579.2 .1959 Unknown [id number] 2.16.840.1.744415.3.579.2 .1959 Unknown [id number] 2.16.840.1.682588.3.579.2 .1959 Unknown [id number] 2.16.840.1.987317.3.579.2 .727 1959 Unknown [id number] 2.16.840.1.576989.3.579.2 .727 1959 Unknown [id number] 2.16.840.1.752466.3.579.2 .727 1959 Unknown [id number] 2.16.840.1.527022.3.579.2 .72 1959 Unknown [id number] 2.16.840.1.452466.3.579.2 .727 1959 Unknown [id number] 2.16.840.1.148495.3.579.2 .727 Private Health Insurance [facility] [employer] [id number] Unknown [id number] Social History Date Type Detail Facility Start: 02-05-2019 End: 04-06-2023 Tobacco smoking status [facility] Never smoker [facility] Comment on above: Denies use. Start: 02-05-2019 History SDOH Alcohol Frequency 1 [facility] Sex Assigned At Not on file [facility] Start: 2020 End: 04-20-2020 Alcohol intake Lifetime non-drinker (finding) [facility] Exposure to SARS-CoV -2 (event) Not sure [facility] Start: 06-14-2020 End: 04-06-2023 Tobacco use and exposure Never used [facility] Tobacco smoking status Never [facility] Comment on above: Denies use. Start: 07-10-2024 End: 07-29-2024 Sex Assigned At Female [facility] Start: 07-10-2024 End: 07-29-2024 Alcoholic beverage intake Ex-drinker (finding) [facility] Start: 07-10-2024 End: 07-29-2024 History of Social function [facility] Start: 06-12-2023 Alcohol Comment Haven't drank measureable amount since I was in 89 [facility] Start: 1960 Sex assigned at Female [facility] Start: 03-11-2023 Gender identity Identifies as female gender (finding) [facility] Start: 03-11-2023 Sexual orientation Heterosexual (boogie lou) [facility] Tobacco smoking stat NHIS Unknown if ever smoked [facility] Work Phone: Start: 09-04-2024 Sex Female (finding) [facility] Medical Equipment Procedure Code Equipment Code Equipment Origin al Text Equipment Identifier Dates {[id number] FDA Start: 07-05-2020 KNEE TOTAL ARTHROPLASTY Melva Grimaldo DO 04/02/23 Non Biological Knee L {[id number]{ [id number] FDA Start: 04-02-2023 KNEE TOTAL ARTHROPLASTY REVISION Melva Grimaldo DO 05/16/23 Biological Knee L {[id number]{ [id number] {[id number] FDA Start: 05-16-2023 Goals Date Patient Goal Desired Activity /State Personal health goal Functional Status Date Assessment Result Facility 09-30-2024 Functional Status N/A [facility] 08-19-2024 Functional Status N/A [facility] 08-19-2024 Functional Status [facility] 05-12-2024 Functional Status N/A [facility] 04-08-2024 Functional Status N/A [facility] 03-24-2024 Functional Status N/A [facility] 03-21-2024 Functional Status N/A [facility] 03-10-2024 Functional Status N/A [facility] 12-10-2023 Functional Status N/A [facility] 10-17-2023 Functional Status N/A [facility] 05-16-2023 Functional Status N/A [facility] 05-15-2023 Functional Status No [facility] 03-23-2023 Functional Status N/A [facility] 01-19-2023 Functional Status N/A [facility] 08-22-2022 Functional Status N/A [facility] 08-12-2022 Functional Status N/A [facility] 06-28-2022 Functional Status N/A [facility] 05-18-2022 Functional Status N/A [facility] 04-25-2022 Functional Status N/A [facility] Clinical Notes 03-13-2022 to 09-28-2024 Haily Shepard MD - 07/29/2024 11:15 AM EDTKisamson Lehman - 07/10/2024 10:00 AM EDT Note Date & Type Note Facility 09-28-2024 Hospital Discharge instructions Patient Education 09/27/2024 22:55:37 Neuropathic Arthropathy Neuropathic Arthropathy Neuropathic arthropathy is a condition that results from poor circulation and numbness in the foot and ankle. Poor blood supply and numbness can cause foot or ankle injuries that are too small to be noticed or treated (microtrauma). You may continue to walk on your damaged foot and make the condition worse. Poor circulation can also cause poor healing and bone weakness. Over time, this condition can lead to: Broken bones. Bone infection. Joint damage or dislocation. Deformities, such as a collapsed foot arch. Disability of the foot or ankle. Neuropathic arthropathy is also called Charcot arthropathy or Charcot foot. What are the causes? This condition may be caused by any disease that damages nerves and blood vessels of the foot and ankle. Diabetes is the most common cause. In this case, neuropathic arthropathy may also be called diabetic foot. Less common causes of this condition include: Polio. Leprosy. Syphilis. Spinal cord damage. Long-term (chronic) alcoholism. What are the signs or symptoms? Early symptoms of this condition include: Foot swelling without a known injury and with very little pain. Warmth and redness. Later symptoms may include: Foot deformity. Ankle instability. Foot sores (ulcers). How is this diagnosed? This condition may be diagnosed based on: Your symptoms and medical history. A physical exam. Tests, such as: ?Blood tests to check for signs of infection or poorly controlled diabetes. ?X-rays of the ankle and foot to look for bone damage. ?Imaging tests to check for soft tissue or joint damage, such as an MRI or ultrasound. ?A bone scan to check for a bone infection. How is this treated? Treatment depends on the severity of the damage. If the damage is minor, treatment may include: Wearing a brace, boot, or cast to protect and support the foot and ankle. Using an assistive device such as a walker, a knee walker, a wheelchair, or crutches to keep weight off the foot so it can heal. If you have a bone or soft tissue infection, you may receive antibiotics. More severe cases may require surgery to repair fractures, remove diseased bone or tissues, or reconstruct the foot or ankle. After treatment, you may need to wear a special cushioned shoe or boot for protection. Follow these instructions at home: If you have a brace, boot, or shoe: Wear it as told by your health care provider. Remove it only as told by your health care provider. Loosen it if your toes tingle, become numb, or turn cold and blue. Keep it clean and dry. If you have a cast: Do not put pressure on any part of the cast until it is fully hardened. This may take several hours. Do not stick anything inside the cast to scratch your skin. Doing that increases your risk of infection. Check the skin around the cast every day. Tell your health care provider about any concerns. You may put lotion on dry skin around the edges of the cast. Do not put lotion on the skin underneath the cast. Keep it clean and dry. Bathing If you have a cast, brace, boot, or shoe that is not waterproof: Do not let it get wet. Cover it with a watertight covering when you take a bath or shower. Activity Return to your normal activities as told by your health care provider. Ask your health care provider what activities are safe for you. Avoid sitting for a long time without moving. Get up to take short walks every 1 2 hours. This is important to improve blood flow and breathing. Ask for help if you feel weak or unsteady. Do not use the injured limb to support your body weight until your health care provider says that you can. Use a walker, a knee walker, a wheelchair, or crutches as told by your health care provider. General instructions Check your feet every day for any redness, warmth, swelling, or ulceration. Do not walk barefooted. This could lead to injuries to your foot. Wear well-fitted footwear. Take uqhq-day-hbbkfvm and prescription medicines only as told by your health care provider. If you were prescribed an antibiotic medicine, take it as told by your health care provider. Do not stop using the antibiotic even if you start to feel better. Do not use any products that contain nicotine or tobacco, such as cigarettes, e-cigarettes, and chewing tobacco. If you need help quitting, ask your health care provider. Keep all follow-up visits as told by your health care provider. This is important. Contact a health care provider if you have: A fever or chills. Any new or worsening symptoms, such as redness, discharge, swelling, warmth, or ulcers on your foot. Any problems with your cast, brace, or boot. Summary Neuropathic arthropathy is a condition that results from poor circulation and numbness in the foot and ankle. Poor blood supply and numbness can cause very small injuries (microtrauma) to your foot or ankle. Continuing to walk on your damaged foot can make the condition worse. Any disease that damages nerves and blood vessels of the foot and ankle can cause neuropathic arthropathy. Diabetes is the most common cause. Foot swelling without a known injury is the most common early symptom. If the damage is minor, treatment may include wearing a brace, boot, or cast and using a walker, a knee walker, a wheelchair, or crutches. This information is not intended to replace advice given to you by your health care provider. Make sure you discuss any questions you have with your health care provider. Document Revised: 10/11/2023 Document Reviewed: 10/11/2023 [employer] Patient Education 2023 [email or web address]. Follow Up Care 09/25/2024 14:53:36 With:Mara BEVERLY MD, FAM Address: [address] [place] [address]- When: Unknown Comments:see me in [facility] [place] 09-27-2024 Note Patient Education Orthopedics Neuropathic Arthropathy Neuropathic arthropathy is a condition that results from poor circulation and numbness in the foot and ankle. Poor blood supply and numbness can cause foot or ankle injuries that are too small to be noticed or treated (microtrauma). You may continue to walk on your damaged foot and make the condition worse. Poor circulation can also cause poor healing and bone weakness. Over time, this condition can lead to: ??? Broken bones. ??? Bone infection. ??? Joint damage or dislocation. ??? Deformities, such as a collapsed foot arch. ??? Disability of the foot or ankle. Neuropathic arthropathy is also called Charcot arthropathy or Charcot foot. What are the causes? This condition may be caused by any disease that damages nerves and blood vessels of the foot and ankle. Diabetes is the most common cause. In this case, neuropathic arthropathy may also be called diabetic foot. Less common causes of this condition include: ??? Polio. ??? Leprosy. ??? Syphilis. ??? Spinal cord damage. ??? Long-term (chronic) alcoholism. What are the signs or symptoms? Early symptoms of this condition include: ??? Foot swelling without a known injury and with very little pain. ??? Warmth and redness. Later symptoms may include: ??? Foot deformity. ??? Ankle instability. ??? Foot sores (ulcers). How is this diagnosed? This condition may be diagnosed based on: ??? Your symptoms and medical history. ??? A physical exam. ??? Tests, such as: ? Blood tests to check for signs of infection or poorly controlled diabetes. ? X-rays of the ankle and foot to look for bone damage. ? Imaging tests to check for soft tissue or joint damage, such as an MRI or ultrasound. ? A bone scan to check for a bone infection. How is this treated? Treatment depends on the severity of the damage. If the damage is minor, treatment may include: ??? Wearing a brace, boot, or cast to protect and support the foot and ankle. ??? Using an assistive device such as a walker, a knee walker, a wheelchair, or crutches to keep weight off the foot so it can heal. If you have a bone or soft tissue infection, you may receive antibiotics. More severe cases may require surgery to repair fractures, remove diseased bone or tissues, or reconstruct the foot or ankle. After treatment, you may need to wear a special cushioned shoe or boot for protection. Follow these instructions at home: If you have a brace, boot, or shoe: ??? Wear it as told by your health care provider. Remove it only as told by your health care provider. ??? Loosen it if your toes tingle, become numb, or turn cold and blue. ??? Keep it clean and dry. If you have a cast: ??? Do not put pressure on any part of the cast until it is fully hardened. This may take several hours. ??? Do not stick anything inside the cast to scratch your skin. Doing that increases your risk of infection. ??? Check the skin around the cast every day. Tell your health care provider about any concerns. ??? You may put lotion on dry skin around the edges of the cast. Do not put lotion on the skin underneath the cast. ??? Keep it clean and dry. Bathing If you have a cast, brace, boot, or shoe that is not waterproof: ??? Do not let it get wet. ??? Cover it with a watertight covering when you take a bath or shower. Activity ??? Return to your normal activities as told by your health care provider. Ask your health care provider what activities are safe for you. ??? Avoid sitting for a long time without moving. Get up to take short walks every 1?2 hours. This is important to improve blood flow and breathing. Ask for help if you feel weak or unsteady. ??? Do not use the injured limb to support your body weight until your health care provider says that you can. Use a walker, a knee walker, a wheelchair, or crutches as told by your health care provider. General instructions ??? Check your feet every day for any redness, warmth, swelling, or ulceration. ??? Do not walk barefooted. This could lead to injuries to your foot. Wear well-fitted footwear. ??? Take fejn-lda-upuyrxs and prescription medicines only as told by your health care provider. ??? If you were prescribed an antibiotic medicine, take it as told by your health care provider. Do not stop using the antibiotic even if you start to feel better. ??? Do not use any products that contain nicotine or tobacco, such as cigarettes, e-cigarettes, and chewing tobacco. If you need help quitting, ask your health care provider. ??? Keep all follow-up visits as told by your health care provider. This is important. Contact a health care provider if you have: ??? A fever or chills. ??? Any new or worsening symptoms, such as redness, discharge, swelling, warmth, or ulcers on your foot. ??? Any problems with your (more content not included)... [facility] 08-19-2024 Hospital Discharge instructions Patient Education 08/19/2024 [...] powder, vinegar, hot sauces, and barbecue sauce. ?[place] fruit juices and citrus fruits, such as oranges, portia, and limes. ?Tomato-based foods, such as red sauce, chili, salsa, and pizza with red sauce. ?Fried and fatty foods, such as donuts, azeri fries, potato chips, and high-fat dressings. ?High-fat [...] ask your health care provider. Medicines Take dklx-gjg-tcmefxi and prescription medicines only as told by [...] told by your health care provider. Take iteq-pzc-baruvfj and prescription medicines only as told by [...] provider. Document Revised: 04/13/2021 Document Reviewed: 04/13/2021 [employer] Patient Education 2023 [email or web address]. 08/19/2024 15:50:54 Chronic Kidney Disease, Adult Chronic [...] Follow these instructions at home: Medicines Take kcog-nze-abuyvfp and prescription medicines only as told by [...] is important. Where to find more information [place] [employer] Kidney Patients: www.aakp.org National Kidney Foundation: www.kidney.org [place] Kidney Fund: www.akfinc.org Life Options: www.lifeoptions.org Kidney [...] provider. Document Revised: 01/12/2021 Document Reviewed: 01/12/2021 [employer] Patient Education 2023 [email or web address]. 08/19/2024 15:50:52 Hypothyroidism Hypothyroidism Hypothyroidism is when [...] away. Follow these instructions at home: Take okxp-vuu-vjgpvih and prescription medicines only as told by [...] provider. Document Revised: 10/10/2022 Document Reviewed: 10/10/2022 [employer] Patient Education 2023 [email or web address]. 08/19/2024 15:50:49 DASH Eating Plan DASH Eating [...] Dairy Whole or 2% milk, cream, and hcoc-ofg-qfjx. Whole or full-fat cream cheese. Whole-fat or [...] more information National Heart, Lung, and Blood [place] (NHLBI): nhlbi.nih.gov [place] [employer] Association (AHA): heart.org Academy of Nutrition and Dietetics: eatright.org National Kidney Foundation (NKF): kidney.org This information is not intended to replace advice given to you by your health care provider. Make sure you discuss any questions you have with your health care provider. Document Revised: 10/25/2023 Document Reviewed: 10/25/2023 [employer] Patient Education 2023 [email or web address]. 08/19/2024 15:50:26 Dyslipidemia Dyslipidemia Dyslipidemia is an [...] quitting, ask your health care provider. Take dlza-ypn-oszibpp and prescription medicines only as told by [...] provider. Document Revised: 05/11/2023 Document Reviewed: 12/12/2021 [employer] Patient Education 2023 [email or web address]. 08/19/2024 15:50:16 Diabetes Mellitus and Foot Care Diabetes Mellitus and Foot Care Diabetes, also called diabetes mellitus, may cause problems with your feet and legs because of poor blood flow (circulation). Poor circulation may make your skin: Become thinner and veneer drier feeder. Break more easily. Heal more slowly. Peel [...] right away. Where to find more information [place] Diabetes Association: diabetes.org Association of Diabetes Care [...] provider. Document Revised: 04/11/2023 Document Reviewed: 04/11/2023 [employer] Patient Education 2023 [email or web address]. Follow Up Care 05/12/2024 19:41:16 With:Mara BEVERLY MD [facility] Address: [address] [place] [address]- When:6 months Comments:staff call [facility] need her recent labs and EKG from 08/12/24 [facility] 08-19-2024 Note Patient Education Endocrinology Hypothyroidism Hypothyroidism [...] Follow these instructions at home: ??? Take xawr-ixa-tmumoqb and prescription medicines only as told by [...] provider. Document Revised: 10/10/2022 Document Reviewed: 10/10/2022 [employer] Patient Education ? 2023 [employer] Diabetes Mellitus and Foot Care Diabetes, also called diabetes mellitus, may cause problems with your feet and legs because of poor blood flow (circulation). Poor circulation may make your skin: ??? Become thinner and veneer drier feeder. ??? Break more easily. ??? Heal more slowly. (more content not included)... [facility] 07-29-2024 History of Present illness Narrative Assessment/Plan Diabetes Mellitus without sign of diabetic retinopathy on dilated retinal examination today OU: Discussed the pathophysiology of diabetes and its effect on the eye. Stressed the importance of strong glucose control. Advised of importance of at least yearly dilated examinations, but to contact us immediately for any problems or concerns. documented in this encounter [facility] 07-10-2024 History of Present illness Narrative Images from the original note were not included. Levi Sofia is a 64 y.o. female presents with chief complaint of right knee pain and swelling. HPI: Levi here well-known to me for her knee issues. Her left knee is doing fairly well without pain. She still has some mild extensor lag, but better. Her right knee, she slipped and fell about four to five weeks ago. She is having pain and swelling. In September she sees Dr. Johnson for right ankle fusion. She does wear a lace up or stirrup brace for that side. She has no fever, chills or constitutional symptoms. SUBJECTIVE: MEDICATIONS: Current Outpatient Medications Medication Instructions albuterol HFA 90 mcg/act inhaler INHALE 2 PUFFS FOUR TIMES DAILY NEEDED aspirin 81 MG EC tablet Every 24 hours atorvastatin (Lipitor) 20 MG tablet benzonatate (Tessalon) 200 MG capsule TAKE 1 CAPSULE BY MOUTH THREE TIMES DAILY for 10 days Breo Ellipta 100-25 MCG/ACT aerosol powder citalopram (CELEXA) 20 mg, Oral, Daily clindamycin (Cleocin) 300 MG capsule Take two caps one hour prior to appointment diclofenac (VOLTAREN) 75 mg, Oral, 2 times daily DULoxetine (CYMBALTA) 30 mg, Oral, Daily RT fluconazole (Diflucan) 150 MG tablet TAKE 1 TABLET BY MOUTH EVERY 3 DAYS NEEDED for post-op yeast problems hydroCHLOROthiazide (Microzide) 12.5 MG capsule ipratropium-albuterol (Duo-Neb) 0.5-2.5 mg/3 mL nebulizer solution levothyroxine (SYNTHROID, LEVOXYL) 137 mcg, Oral, Daily losartan (Cozaar) 50 MG tablet methylPREDNISolone (Medrol Dospak) 4 MG tablets montelukast (SINGULAIR) 10 mg, Oral, Every evening omeprazole (PRILOSEC) 20 mg, Oral, Daily oxybutynin XL (Ditropan-XL) 15 MG 24 hr tablet permethrin (Elimite) 5 % cream apply topically once as directed propranolol LA (Inderal LA) 80 MG 24 hr capsule SUMAtriptan (Imitrex) 100 MG tablet Every 24 hours Symbicort 160-4.5 MCG/ACT inhaler 2 puffs, Inhalation, 2 times daily ALLERGIES: Allergies Allergen Reactions Amoxicillin-Pot Clavulanate Hives Other Reaction(s): Other: See Comments Chlorzoxazone Unknown Moxifloxacin Unknown Penicillins Hives SURGICAL HISTORY: Past Surgical History: Procedure Laterality Date BUNIONECTOMY Right Dr. Gonzalez CATARACT EXTRACTION HYSTERECTOMY 2008 IR INJECTION EPIDURAL STEROID 07/15/2020 IR INJECTION EPIDURAL STEROID 07/15/2020 OTHER SURGICAL HISTORY Right elbow thermal fasciotomy HI RECONSTRUCTION CLEFT FOOT 12/2020 SINUS SURGERY 1994 TOTAL KNEE ARTHROPLASTY 04/02/2023 LTKA compounded by obestiy - MTP TOTAL KNEE ARTHROPLASTY Left 05/16/2023 L knee exploration, extensor tendon repair with allograft and graft jacket- MTP FAMILY HISTORY: Family History Problem Relation Name Age of Onset Heart disease Mother Stroke Father Cancer Brother Stas and Emerson Patel SOCIAL HISTORY: Social History Tobacco Use Smoking status: Never Smokeless tobacco: Never Vaping Use Vaping status: Never Used Substance Use Topics Alcohol use: Not Currently Comment: Haven't drank measureable amount since I was in [birth year] Drug use: Never Depression: Not on file REVIEW OF SYMPTOMS: The review of systems, history and current medications list are all reviewed today. OBJECTIVE: Visit Vitals Ht 5' 10 Wt 275 lb BMI 39.46 kg/m OB Status Unknown Smoking Status Never BSA 2.48 m Physical Exam On physical exam, the right knee has a moderate amount of swelling. She has large soft tissue envelope with increased BMI. She lacks full extension by 4-5 degrees with flexion to 110 with pain throughout. Crepitance is present. Collateral ligaments are intact. Patellofemoral tracking is midline with bone on bone involvement with positive grind. Gait is stiff and antalgic with flexed posture. Ankle brace is present. Left knee replacement has stable position and alignment of the patellofemoral joint with a graft. She has intact extension. She just has a lag of approximately 4 degrees. She will flex the knee to approximately 115 without pain. X-rays, permanently saved to the patient's record, are reviewed bilateral AP, lateral and sunrise views show stable position and alignment of the left knee prosthesis. No sign of loosening or infection or patellofemoral maltracking. The right knee has grade IV severe degenerative changes of the patellofemoral joint with moderate to severe degenerative changes of the medial joint. There is no fracture, dislocation, tumor or infection seen. ASSESSMENT AND PLAN: Assessment/Plan Right knee advanced osteoarthritis, particularly patellofemoral joint. Recent fall. Obesity. Remote history of left total knee arthroplasty. Right ankle deformity with upcoming fusion. The nature of the findings were discussed at length. With consent from the patient today, limited ultrasound is performed identifying the capsule, patella and extensor mechanism. 1 cc of cortisone (3 mg of Betamethasone sodium phosphate with 3 mg of Betamethasone acetate) and 1 cc of 1% plain Lidocaine was injected from a seated approach. The patient tolerated the injection well. We will continue with conservative care. We discussed the role of Visco supplementation, mcfp role of total knee replacement. Follow up at this point will be on a p.r.n. basis. She is discharged in stable condition. Numerous questions were answered. The patient was seen and examined. From the time of check in, nurse triage, vital signs, x-ray, x-ray interpretation, review of systems, comprehensive history and physical exam as well as setting up treatment plan and further management took 35 minutes. documented in this encounter [facility] 05-10-2024 Hospital Discharge instructions Patient Education [...] plan? Your health care provider or certified pedorthotist can help you make a plan for [...] (heat stroke). Where to find more information [place] [employer] Association: www.diabetes.org Summary Exercising regularly is important for overall health, especially for people who have diabetes mellitus. Exercising has many health benefits. It increases muscle strength and bone density and reduces body fat and stress. It also lowers and controls blood glucose. Your health care provider or certified pedorthotist can help you make an activity plan [...] provider. Document Revised: 07/05/2020 Document Reviewed: 07/05/2020 [employer] Patient Education 2022 [email or web address]. Follow Up Care 12/10/2023 19:22:31 With:Mara BEVERLY MD, FAM Address: When:Within 3 Month(s) Comments:plan A1C at visit, please set up bacxk to back with medicare exam same date thanks [facility] [place] 05-10-2024 Note Patient Education Endocrinology Diabetes Mellitus [...] plan? Your health care provider or certified pedorthotist can help you make a plan for [...] stroke). Where to find more information ? [place] [employer] Association: www.diabetes.org Summary ? Exercising regularly is important for overall health, especially for people who have diabetes mellitus. ? Exercising has many health benefits. It increases muscle strength and bone density and reduces body fat and stress. It also lowers and controls blood glucose. ? Your health care provider or certified pedorthotist can help you make an activity plan [...] provider. Document Revised: 07/05/2020 Document Reviewed: 07/05/2020 Else[employer]land[employer] Patient Education ? 2022 [email or web address]. [facility] 04-08-2024 Hospital Discharge instructions Patient Education [...] numbers. This can be done either in [place] or metric measurements. Note that charts and online BMI calculators are available to help you find your BMI quickly and easily without having to do these calculations yourself. To calculate your BMI in [place] measurements: 1.Measure your weight in pounds [...] Centers for Disease Control and Prevention: www.cdc.gov [place] Heart Association: www.heart.org National Heart, Lung, and Blood [place]: www.nhlbi.nih.gov Summary Body mass index (BMI) is a number that is calculated from a person's weight and height. BMI may help estimate how much of a person's weight is composed of fat. BMI can help identify those who may be at higher risk for certain medical problems. BMI can be measured using [place] measurements or metric measurements. BMI charts are used to identify whether you are underweight, normal weight, overweight, or obese. This information is not intended to replace advice given to you by your health care provider. Make sure you discuss any questions you have with your health care provider. Document Revised: 06/30/2020 Document Reviewed: 05/07/2020 [employer] Patient Education 2022 [email or web address]. 04/08/2024 15:40:09 Bedbugs, Bdgf-ri-Yjqz Bedbugs Bedbugs are tiny bugs that live [...] lips, face, mouth, tongue, or throat. 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 ?Itchy, red, swollen areas of [...] provider. Document Revised: 12/26/2022 Document Reviewed: 12/21/2022 [employer] Patient Education 2022 [email or web address]. Follow Up Care 04/08/2024 11:55:11 With:Mara BEVERLY MD, FAM Address: [place] [address]- When: Unknown [facility] 03-25-2024 Hospital Discharge instructions [...] breathing (shortness of breath). 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 Chest tightness. Tiredness (fatigue) with minimal [...] condition. Follow these instructions at home: Take mhhs-axn-npnbqif and prescription medicines only as told by [...] provider. Document Revised: 07/26/2022 Document Reviewed: 07/17/2022 [employer] Patient Education 2022 [email or web address]. Follow Up Care 03/24/2024 22:42:12 With:Mara BEVERLY Address: [address] [place] [id number]- Business (1) When:Within 3 Day(s) [facility] 03-24-2024 Evaluation + Plan note Extrac mary [...] cough and congestion, 200 mL, Refill(s) 0, [facility] #37, 177, cm, 03/24/24 22:52:00 EDT, Height/Length Dosing, 128, kg, 03/24/24 22:52:00 EDT, Weight Dosing B-Type Natriuretic Peptide Basic Metabolic Panel CBC w/ Auto Diff ECG 12 Lead Adult ED Cardiac Monitoring eGFR Influenza A&B Ag Oxygen Saturation Oxygen Therapy PT & PTT Rapid [place] Antigen [place] Saline Lock Insert Troponin 0 Hr. Troponin 1 Hr. XR Chest Single View Future Appointments Appointment Date:05/12/2024 06:40:00 PM Scheduled Provider:Mara BEVERLY MD Location:[facility] Appointment Type:FM Open Appointment Date:05/21/2024 02:15:00 PM Scheduled Provider:Farzad FRANCE MD Location:[facility] Appointment Type:URO New Patient Future Scheduled Tests Laboratory* TSH With T4fr Reflex 12/08/23 * Vitamin D 25 Hydroxy 12/10/23 * CBC w/ Auto Diff 12/08/23 * Comprehensive Metabolic Panel 12/08/23 * Lipid Panel 12/08/23 Radiology* MA Mamm Screen w/CAD if perf and 3D Kenji 12/08/23 [facility]05-31-2024 Hospital Discharge instructions Patient Education 03/21/2024 13:41:57 Asthma, Adult, Enqm-vp-Whvg Asthma, Adult Asthma is a condition that [...] (dander). Cockroaches. Pollen. Air pollution (like household associate manager affiliate marketing, wood smoke, smog, or chemical odors). What [...] of polyester or cotton. General instructions Take uscp-otn-usoepfj and prescription medicines only as told by [...] pollute the air. These may include household associate manager affiliate marketing, wood smoke, smog, or chemical odors. This information is not intended to replace advice given to you by your health care provider. Make sure you discuss any questions you have with your health care provider. Document Revised: 07/17/2022 Document Reviewed: 07/17/2022 [employer]landree Patient Education 2022 [employer] Follow Up Care 03/21/2024 11:33:38 With:Mara BEVERLY MD, FAM Address: When: only if needed [facility] [place] 05-20-2024 Hospital Discharge instructions Patient Education 03/10/2024 [...] or grass. Air pollutants such as household associate manager affiliate marketing, aerosol sprays, strong odors, and smoke of [...] Follow these instructions at home: Medicines Take aarm-roz-qmmoxgq and prescription medicines only as told by [...] provider. Document Revised: 07/30/2022 Document Reviewed: 07/30/2022 Elsevier Patient Education 2022 [email or web address]. Follow Up Care 03/10/2024 16:13:14 With:Mara BEVERLY MD, FAM Address: When: only if needed [facility] [place] 02-19-2024 Hospital Discharge instructions Patient Education 12/10/2023 [...] Do not chew gum. General instructions Take akjh-ytq-otkvshs and prescription medicines only as told by [...] important. Where to find more information National [place] of Dental and Craniofacial Research: www.nidcr.nih.gov Contact [...] provider. Document Revised: 05/21/2022 Document Reviewed: 05/21/2022 [employer] Patient Education 2022 [email or web address]. 12/08/2023 16:12:10 DASH Eating Plan DASH Eating [...] Dairy Whole or 2% milk, cream, and vapx-fos-trkp. Whole or full-fat cream cheese. Whole-fat or [...] more information National Heart, Lung, and Blood [place]: www.nhlbi.nih.gov [place] Heart Association: www.heart.org Academy of Nutrition and [...] provider. Document Revised: 09/10/2020 Document Reviewed: 09/10/2020 [employer] Patient Education 2022 [email or web address]. Follow Up Care 11/15/2023 15:10:42 With:Mara BEVERLY MD, FAM Address: [address] [place] [address] [facility] [place] [address]- When: Unknown Comments:see me in April, [place] [facility] [place] and a mammogram at [facility] [place] 12-27-2023 Hospital Discharge instructions Patient Education 10/17/2023 15:11:37 Sinus Infection, Adult, Fvij-xy-Sjoe Sinus Infection, Adult A sinus infection is [...] saline washes). ?Medicines that treat allergies (antihistamines). ?Staa-gcy-wptwrrn pain relievers. If caused by bacteria, your doctor may wait to see if you will get better without treatment. You may be given antibiotic medicine if you have: ?A very bad infection. ?A weak body defense system. If caused by growths in the nose, surgery may be needed. Follow these instructions at home: Medicines Take, use, or apply xowb-wzn-gitegwc and prescription medicines only as told by [...] cannot use soap and water, use hand muck boss. Do not smoke. Avoid being around people [...] provider. Document Revised: 09/12/2022 Document Reviewed: 09/12/2022 [employer] Patient Education 2022 [email or web address]. 10/17/2023 15:11:36 BMI for Adults BMI for [...] numbers. This can be done either in [place] or metric measurements. Note that charts and online BMI calculators are available to help you find your BMI quickly and easily without having to do these calculations yourself. To calculate your BMI in [place] ([place] measurements: 1.Measure your weight in pounds [...] Centers for Disease Control and Prevention: www.cdc.gov [place] Heart Association: www.heart.org National Heart, Lung, and Blood [place]: www.nhlbi.nih.gov Summary Body mass index (BMI) is a number that is calculated from a person's weight and height. BMI may help estimate how much of a person's weight is composed of fat. BMI can help identify thosewho may be at higher risk for certain medical problems. BMI can be measured using [place] measurements or metric measurements. BMI charts are used to identify whether you are underweight, normal weight, overweight, or obese. This information is not intended to replace advice given to you by your health care provider. Make sure you discuss any questions you have with your health care provider. Document Revised: 06/30/2020 Document Reviewed: 05/07/2020 [employer] Patient Education 2022 [email or web address]. Follow Up Care 10/17/2023 10:36:14 With:Mara BEVERLY MD, FAM Address: [address] [place], [place] [id number] When: Unknown [facility] 07-27-2023 Evaluation + Plan noteExtracted [...] with brace on in full extension. Mepilex. [place] out POD#21. ASA DVTp daily 4 weeks. [...] from: Title:Initial consult Hospitalist Author:Roland veras MD, [facility] Date:05/16/23 Extensor mechanism malalignm ent of knee [...] Plan: per Orthopedics Addendum by Analy ARMENTA, [facility] ad on May 16, 2023 18:34:39 [...] Ambulatory Surgery Unit, and To home ). [facility]07-24-2023 Hospital Discharge instructions Follow Up Care 05/14/2023 10:03:11 With:Melva Grimaldo Address: [address] [place], [place] [id number] [facility] (1) When: Unknown Comments:Keep scheduled appointment [facility]06-01-2023 Hospital Discharge instructions Patient Education 03/22/2023 20:43:43 [...] provider. Document Revised: 02/27/2022 Document Reviewed: 02/27/2022 [employer] Patient Education 2022 [email or web address]. Follow Up Care 09/18/2022 10:47:10 With:SIRIA ARMENTA, EVI Nicole Address: [address] [place] [phone]- When:6 months [facility] 11-06-2022 Hospital Discharge instructions Patient Education 08/27/2022 [...] 04/22/2012 Document Revised: 10/01/2019 Document Reviewed: 10/01/2019 [employer] Patient Education 2020 [email or web address]. [facility] [place] 10-22-2022 Hospital Discharge instructions Patient Education 08/12/2022 [...] height. This can be done either in [place] or metric measurements. Note that charts are available to help you find your BMI quickly and easily without having to do these calculations yourself. To calculate your BMI in [place] measurements, your health care provider will: [...] medical problems. BMI can be measured using [place] measurements or metric measurements. To interpret your [...] 06/19/2005 Document Revised: 09/20/2018 Document Reviewed: 08/21/2018 [employer] Patient Education 2020 [email or web address]. 08/12/2022 13:36:15 Sinusitis, Adult, Hinm-aq-Pleh Sinusitis, Adult Sinusitis is soreness and swelling [...] at home: Medicines Take, use, or apply lbmy-enj-cawiabh and prescription medicines only as told by [...] is no soap and water, use hand muck boss. Do not smoke. Avoid being around people [...] 03/26/2009 Document Revised: 03/10/2019 Document Reviewed: 03/10/2019 ElsePlandree Patient Education 2020 Elsevier Inc. Follow Up Care 08/12/2022 11:36:36 With:Mara BEVERLY MD, FAM Address: [address] [place], [place] [id number]- When: Unknown [facility] 07-29-2022 Hospital Discharge instructions Follow Up Care 05/19/2022 10:40:52 With:Isaac ARMENTA, Dolores Dunlap Address: When:3 months Comments:Call for sooner apt with new/worsening symptoms [facility]07-05-2022 Hospital Discharge instructions Patient Education 04/25/2022 21:16:41 [...] Follow these instructions at home: Medicines Take qdha-pau-havfzrw and prescription medicines only as told by [...] 07/18/2006 Document Revised: 04/10/2019 Document Reviewed: 04/10/2019 Push IO Patient Education 2020 [email or web address]. Follow Up Care 04/25/2022 16:19:02 With:SIRIA ARMENTA, EVI Nicole Address: When: only if needed [facility] [place] 05-23-2022 Hospital Discharge instructions Patient Education 03/13/2022 [...] pollution. Aerosol sprays and fumes from household associate manager affiliate marketing. Household pests and their droppings, including dust [...] or starting any new medicines. Medicines Take xooh-nnt-pcwtegm and prescription medicines only as told by [...] 09/26/2010 Document Revised: 09/20/2018 Document Reviewed: 03/24/2017 [employer] Patient Education 2020 [email or web address]. Follow Up Care 09/13/2021 10:56:46 With:Mara BEVERLY MD, [facility] Address: [address] [place] [address]- When:6 months [facility] [place] Evaluation + Plan note Future Appointments Appointment Date:03/14/2022 10:20:00 AM Scheduled Provider:Mara BEVERLY MD Location:[facility] [place] Appointment Type: Open Future Scheduled Tests Laboratory* TSH With T4fr Reflex 09/13/21 * CBC w/ Auto Diff 09/13/21 * Comprehensive Metabolic Panel 09/13/21 * Lipid Panel 09/13/21 Radiology* MRI Shoulder w/o Contrast Right 09[facility]13/[facility] Future Appointments Appointment Date:08/29/2022 10:20:00 AM Scheduled Provider:M[facility] BEVERLY MD [facility] Type:FM Open Future Scheduled Tests Radiology* MRI Shoulder w/o Contrast Right 09/13/21 [facility] Evaluation + Plan note Future Appointments Appointment Date:08/29/2022 10:20:00 AM Scheduled Provider:Mara BEVERLY MD [facility] Type: Open Future Scheduled Tests Radiology* MRI Shoulder w/o Contrast Right 09/13/21 [facility] Evaluation + Plan note Future Appointments Appointment Date:08/29/2022 10:20:00 AM Scheduled Provider:Mara BEVERLY MD Location:[facility] Appointment Type: Open Future Scheduled Tests Radiology* Echo Transthoracic Complete 05/18/22 * NM Myocardial Spect Rest/Stress 2 Day 05/18/22 * MRI Shoulder w/o Contrast Right 09/13/21 [facility] Future Appointments Appointment Date:08/29/2022 10:20:00 AM Scheduled Provider:Mara BEVERLY MD [facility] Type:FM Open Appointment Date:09/27/2022 11:45:00 AM Scheduled Provider:Dolores Gray MD [facility] Type:Cardiology Follow Up (FT) Future Scheduled Tests Radiology* MRI Shoulder w/o Contrast Right 09/13/[facility] Future Appointments Appointment Date:08/22/2022 08:30:00 AM Scheduled Provider: [facility] Type:Cardiology Nurse Visit (FT) Appointment Date:08/29/2022 10:20:00 AM Scheduled Provider:Mara BEVERLY MD [facility] Type:FM Open Appointment Date:09/27/2022 11:45:00 AM Scheduled Provider:Dolores Gray MD [facility] Type:Cardiology Follow Up (FT) Future Scheduled Tests Radiology* MRI Shoulder w/o Contrast Right 09/13/21 [facility] Evaluation + Plan note Future Appointments Appointment Date:09/27/2022 11:45:00 AM Scheduled Provider:Dolores Gray MD [facility] Type:Cardiology Follow Up (FT) Future Scheduled Tests Radiology* MRI Shoulder w/o Contrast Right 09/13/21 [facility] [place] Evaluation + Plan note Future Appointments Appointment Date:03/19/2023 09:40:00 AM Scheduled Provider:Mara BEVERLY MD Location:[facility] Appointment Type: Open [facility] Dots ,LLCaluation + Plan note Future Appointments Appointment Date:04/02/2023 07:30:00 AM Scheduled Provider: Location:[facility] Appointment Type:Surgery FT Future Scheduled Tests Laboratory* TSH With T4fr Reflex 03/23/23 * ALT 03/23/23 * AST 03/23/23 * Lipid [facility]LL[facility] + Plan note Future Appointments Appointment Date:04/02/2023 07:30:00 AM Scheduled Provider: Location:[facility] Appointment Type:Surgery FT [facility] Future Appointments Appointment Date:05/12/2024 06:40:00 PM Scheduled Provider:Mara BEVERLY MD Location:[facility] Appointment Type: Open Future Scheduled Tests Laboratory* TSH With T4fr Reflex 12/08/23 * Vitamin D 25 Hydroxy 12/10/23 * CBC w/ Auto Diff 12/08/23 * Comprehensive Metabolic Panel 12/08/23 * Lipid Panel 12/08/23 Radiology* MA Mamm Screen w/CAD if perf and 3D Kenji [facility] Future Appointments Appointment Date:05/12/2024 06:40:00 PM Scheduled Provider:Mara BEVERLY MD Location:[facility] Appointment Type: Open Appointment Date:05/21/2024 02:15:00 PM Scheduled Provider:Farzad FRANCE MD Location:[facility] Appointment Type:URO New Patient Future Scheduled Tests Laboratory* TSH With T4fr Reflex 12/08/23 * Vitamin D 25 Hydroxy 12/10/23 * CBC w/ Auto Diff 12/08/23 * Comprehensive Metabolic Panel 12/08/23 * Lipid Panel 12/08/23 Radiology* MA Mamm Screen w/CAD if perf and 3D Kenji 12/08/23 [facility] [place] Evaluation + Plan note Future Appointments Appointment Date:05/12/2024 06:40:00 PM Scheduled Provider:Mara BEVERLY MD [facility] Type: Open Appointment Date:05/21/2024 02:15:00 PM Scheduled Provider:Farzad FRANCE MD Location:[facility] Appointment Type:URO New Patient Future Scheduled Tests Laboratory* HgbA1c 04/14/24 Radiology* MA Mamm Screen w/CAD if perf and 3D Kenji 12/08/23 [facility] Future Appointments Appointment Date:05/14/2024 12:15:00 PM Scheduled Provider: Location:.[facility] Appointment Type:MA Screen (FT) Appointment Date:05/14/2024 01:00:00 PM Scheduled Provider: Location:.BD Appointment Type:BD Bone Density () Appointment Date:05/21/2024 02:15:00 PM Scheduled Provider:Farzad FRANCE MD Location:[facility] Appointment Type:URO New Patient Appointment Date:08/19/2024 02:30:00 PM Scheduled Provider: Location:[facility] Appointment Type: Medicare Wellness Welcome Appointment Date:08/19/2024 03:40:00 PM Scheduled Provider:Mara BEVERLY MD [facility] Type: Open Future Scheduled Tests Radiology* BD Bone Density DEXA 05/14/24 * MA Mamm Screen w/CAD if perf and 3D Kenji 05/14/24 [facility] [place] Evaluation + Plan note Future Appointments Appointment Date:05/14/2024 12:15:00 PM Scheduled Provider: Location:.[facility] Appointment Type:MA Screen (FT) Appointment Date:05/14/2024 01:00:00 PM Scheduled Provider: Location:.BD Appointment Type:BD Bone Density () Appointment Date:05/21/2024 02:15:00 PM Scheduled Provider:Farzad FRANCE MD Location:[facility] Appointment Type:URO New Patient Appointment Date:08/19/2024 02:30:00 PM Scheduled Provider: [facility] Type: Medicare Wellness Welcome Appointment Date:08/19/2024 03:40:00 PM Scheduled Provider:Mara BEVERLY MD Location:[facility] [place] Appointment Type: Open Diagnostic Tests Pending * Microalbumin Level Urine 05/12/24 * U Protein/Creat Ratio 05/12/24 Future Scheduled Tests Radiology* BD Bone Density DEXA 05/14/24 * MA Mamm Screen w/CAD if perf and 3D Kenji 05/14/24 [facility] Future Appointments Appointment Date:05/21/2024 02:15:00 PM Scheduled Provider:Farzad FRANCE MD Location:[facility] Appointment Type:URO New Patient Appointment Date:08/19/2024 02:30:00 PM Scheduled Provider: [facility] Type:FM Medicare Wellness Welcome Appointment Date:08/19/2024 03:40:00 PM Scheduled Provider:Mara BEVERLY MD [facility] Type: Open [facility] Evaluation + Plan note Future Appointments Appointment Date:08/20/2025 11:00:00 AM Scheduled Provider: [facility] Type: Medicare Wellness Subsequent [facility] [place] Evaluation + Plan note Future Appointments Appointment Date:03/05/2025 09:00:00 AM Scheduled Provider:Mara BEVERLY MD Location:[facility] [place] Appointment Type:FM Open Appointment Date:08/20/2025 11:00:00 AM Scheduled Provider: Location:[facility] [place] Appointment Type:FM Medicare Wellness Subsequent [facility] [place] Evaluation note* Diagnosis Type 2 diabetes mellitus without complication, without long-term current use of insulin ([facility])- Primary Pseudophakia Lens replaced by other means documented in this encounter [facility] HealthcareEvaluation noteNo assessment information availableFirelands Regional Medical [facility] Work Phone: Evaluation note* Diagnosis Artificial knee joint present, left- Primary Acute pain of right knee documented in this encounter [facility] HealthcareHospital course Narrative No data available for this section [facility] No data available for this section [facility] No data available for this section [facility] History of Present Illness * Emma, Carlos Gerber MD - 02/05/2019 2:00 PM [...] From anonsurgical standpoint I would recommend a Jackson walker. This could be custom fit for her. I would recommend that she try to find a shoe of adequate height to have on the other side in order to minimize discomfort in her back. If she does not have significant relief from the Jackson walker I would recommend obtaining a CT scan for presurgical planning and considering fusion of multiple joints in the hindfoot and midfoot including the calcaneocuboid, talonavicular, navicular cuneiform, and possible tarsometatarsal joints. She would need to be nonweightbearing for approximately 12 weeks after surgery. After discussion the patient and her sister both agree that she would like to try nonsurgical treatment first. The Jackson walker was ordered. She will have this fitted at [facility] in [place]. She will follow-up after wearing it for several weeks. Levi Sofia was agreeable to the plan and there were no learning barriers encountered. Follow-Up: After wearing the Jackson walker for several weeks. X-rays of the [...] swollen. She was seen initially in the [facility] podiatry department. She was first placed [...] she saw for her foot was a wire stripping machine operator by the name of Dr. Wakefield in [place]. Overall for the treatment of her foot and ankle she has never been given a custom brace. She does have a pair of three-quarter length hard podiatry style orthotics. These were prescribed by Dr. gonzalez. she has also been given an ASO. Aside from when she was in the cast she was never nonweightbearing. She was told by a wire stripping machine operator in the past that she has neuropathy. She is not a diabetic. She has noknown causes of neuropathy. 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 She is not a smoker. Past Medical History: Diagnosis Date Disease of thyroid gland Hypertension and Past Surgical History: Procedure Laterality Date ELBOW SURGERY Left 2011 scope FOOT SURGERY Right [address] Gonzalez Past medical, past surgical, family history, medications, allergies, and smoking status reviewed and updated as appropriate in [facility]. A 13-system review of systems was completed [...] especially the second tarsometatarsal joint. CC: Mara Bevelry MD documented in this encounter* Carlos Carter MD - 03/12/2019 10:50 AM EDT Impression: SNOMED CT(R) 1. Charcot's joint of left foot CHARCOT'S JOINT OF FOOT Plan: The above diagnosis as well as the options for treatment were discussed with Levi in clinic today. At this time we recommend the following: She will remain in the Jackson walker and wear the elevated shoe on [...] appointment I recommended that she get a Jackson walker. She has that today. She also [...] distress. Standing: Patient is ambulating in a Jackson walker and shoe with a lift on [...] we. Think about coming out of the [facility] into a diabetic shoe and orthotic. She [...] midfoot deformity. She has been using a [place] walker. She says her pain is significantly improved in the Jackson walker. She now is having pain on her right side however. She requested x-rays on the right side today. Smoking status, allergies, medications, and non-medications were reviewed and updated as appropriate in [facility]. She is not a current tobacco user. Exam: Vitals: 03/09/20 1032 BP: (!) 151/70 Pulse: 69 Weight: 129.3 kg (285 lb) Height: 5' 10 The patient is awake, alert and orientated x3, and in no apparent distress. Standing: Patient is ambulating in a Jackson walker and shoe with a lift on [...] Visit Patient Name: Levi Sofia MR #: [id number] : 1960 Physicians: Mara Beverly MD (Family); [...] was in [address] Yanez in [facility]. She has long-standing history of allergy/sinus [...] file Gets together: Not on file Attends baptist service: Not on file Active member of [...] try laminated lining. These were fashioned at [employer]. She also does not have relief from [...] 07/13/2020 10:10 AM EDT OFFICE CONSULTATION NOTE [facility] [address]) [facility] [address] [facility] [phone] Physicians: Mara Beverly MD (Family); Carlos Carter [...] injections for this. She has seen several wire stripping machine operator and orthopedic surgeons in the past for [...] left foot. Patient was fitted with a Jackson walker for the left foot which did [...] scope FOOT SURGERY Right [address] oGnzalez Family History Problem Relation Age of Onset [...] Foot Added automatically from request for surgery [id number] Objective: Vitals: BP 140/75 (BP Location: Left [...] Ochoa MD 07/18/2020 documented in this encounter* Carlos Carter MD - 09/04/2019 8:30 AM EST Impression: 1. Charcot's joint of left foot 2. Neuropathy, idiopathic Plan: The above diagnosis as well as the options for treatment were discussed with Levi in clinic today. At this time we recommend the following: I recommend she continue in the Jackson walker. She will follow-up in 6 months with new repeat x-rays of the left foot. We discussed that after that point time she can either try to get back into regular footwear or shecan continue wearing the Jackson walker lifelong. Levi was agreeable to the plan and there were no learning barriers encountered. Follow-Up: Followup 6 months. New xrays will be needed at the next visit. Subjective: Levi Sofia is here for a follow visit in regards to her left charcot midfoot deformity. She has been using a [place] walker. She says her pain is significantly improved in the Jackson walker. Smoking status, allergies, medications, and non-medications were reviewed and updated as appropriate in [facility]. She is not a current tobacco user. Exam: Vitals: 09/04/19 0831 BP: 147/84 Pulse: (!) 59 Weight: 129.3 kg (285 lb) Height: 5' 10 The patient is awake, alert and orientated x3, and in no apparent distress. Standing: Patient is ambulating in a Jackson walker and shoe with a lift on [...] file Gets together: Not on file Attends baptist service: Not on file Active member of [...] concerns. She is employed at [employer] and would like to haveCT completed [...] Unspecified sinusitis (chronic) Chronic rhinitis Advance Directives Documents on File Type Date Recorded Patient Slide Attendant Expl anation Advance Directives and Livin g Will 03/12/2019 10:07 AM Documents on File Type Date Recorded Patient Slide Attendant Expl anation Advance Directives and Livin g Will 2020 10:32 AM Documents on File Type Date Recorded Patient Slide Attendant Expl anation Advance Directives and Livin g Will 2020 10:32 AM Documents on File Type Date Recorded Patient Slide Attendant Expl anation Advance Directives and Livin g [...] pollen counts are high. Use a vacuum film cleaner with aHEPA filter or a double-thickness [...] call 911, even if you feel better. [id number] if: You have symptoms of a severe [...] Log into your personal health record on [email or web address] and enter W171 in the Education box to learn more about Allergies: Care Instructions. Current as of: July 28, 2019 Content Version: 12.5 [employer]. Care instructions adapted under license by your healthcare professional. If you have questions about a medical condition or this instruction, always ask your healthcare professional. [employer] disclaims any warranty or liability for your use of this information. documented in this encounter Reason for Referral Status Reason Specialty Diagnoses / Procedures Referred By Contact Referred To Contact New Request Radiology Diagnoses Recurrent sinusitis Procedures CT Sinus [facility] [address] [place] [address] Specialty Diagnoses / Procedures Referred By Laurie gamez Referred To Contact Physical Therapy Diagnoses Acute pain of right knee Artificial knee joint present, left Procedures HI OFFICE/OUTPATIENT NEW HIGH MDM 60 MINUTES Melva Grimaldo, DO [address] [place] [address] [facility] [place]AUD/SPEECH [address] [facility], [facility] Referral ID Status Reason Start Date Expiration Date Visits Requested Visits Authorized [id number] Authorized Specialty Services Required 07/10/2024 01/06/2025 1 1 Additional Source Comments Reason for Visit (unrecogniz ed section and content) Reason Comments Pain ANKLE AND FOOT PAIN Pain Reason Comments Follow-up F/U LT CHARCOT FOOT WITH NEUROPATHY-MANZANITA WALKER Pain Reason Comments Follow-up LT FOOT CHARCOT FOOT W/ NEUROPATHY Follow-up Reason Comments Acute recurrent frontal sinusitis Status Reason Specialty Diagnoses / Procedures Referred By Contact Referred To Contact Closed Otolaryngology Diagnoses Acute recurrent frontal sinusitis Mara Beverly MD [address] [place] [address] Javier Fischer MD [address] [id number] Status Reason Specialty Diagnoses / Procedures Re ferred By Contact Referred To Contact Diagnoses Charcot's joint of left foot Procedures VR Epidural Steroid Inj-B/L TALONAVICULAR AND CALCANEOCUBOID JOINT INJECTION Senait Ochoa MD [address] [address] Reason Comments PT Initial Evaluation charcot foot Status Reason Specialty Diagnoses / Procedures Referred By Contact Referred To Contact Closed Specialty Services Required/Patie nt's Best Interest Interventional Radiology / Cardiology Diagnoses Charcot's joint of left foot Neuropathy, idiopathic Pain Emma, Carlos Gerber MD [address] [place] [address] Senait Ochoa MD [address] [address] Reason Comments Follow-up LT CHARCOT FOOT WITH NEUROPATHY -MANZANITA WALKER Follow-up Reason Comments Follow-up CT Sinus Review Reason Comments Follow-up 6 week f/u recurrent sinusitis and rhinitis Reason Comments Diabetic Eye Exam Reason Comments Pain INFORMATION SOURCE (unrecogn ized section and content) DATE CREATED AUTHOR 02/07/2019 [facility] DATE CREATED AUTHOR AUTHOR'S ORGANIZ ATION 08/13/2020 [facility] DATE CREATED AUTHOR AUTHOR'S ORGANIZ ATION 08/14/2020 [facility] DATE CREATED AUTHOR AUTHOR'S ORGANIZ ATION 05/09/2022 [facility] DATE CREATED AUTHOR AUTHOR'S ORGANIZ ATION 12/29/2022 [facility] DATE CREATED AUTHOR AUTHOR'S ORGANIZ ATION 03/25/2024 [facility] DATE CREATED AUTHOR AUTHOR'S ORGANIZ ATION 04/15/2024 [facility] DATE CREATED AUTHOR AUTHOR'S ORGANIZ ATION 05/16/2024 [facility] DATE CREATED AUTHOR AUTHOR'S ORGANIZ ATION 07/30/2024 [facility] DATE CREATED AUTHOR AUTHOR'S ORGANIZ ATION 08/21/2024 [facility] DATE CREATED AUTHOR AUTHOR'S ORGANIZ ATION 08/23/2024 [facility] DATE CREATED AUTHOR AUTHOR'S ORGANIZ ATION 09/05/2024 [facility] DATE CREATED AUTHOR AUTHOR'S ORGANIZ ATION 11/07/2024 [facility] Assessment & Plan Note [...] Care Team (unrecognized sect ion and content) Customer Account Administrator Relationship Specialty Start Date End Date Mara Beverly MD [address] [place] [phone] PCP - General 03/14/23 Customer Account Administrator Relationship Specialty Start Date End Date Mara Beverly MD [address] [place] [phone] PCP - General 03/14/23 Team Status: Inactive Member Role Status Dates HENRIETTA HilarioM MS Attending Provider Active Start: September 02, 2024 End: September 02, 2024 Customer Account Administrator Relationship Specialty Start Date End Date Mara Beverly MD [address] [place] [phone] PCP - General 03/14/23 Customer Account Administrator Relationship Specialty Start Date End Date Mara Beverly MD [address] [place] [phone] PCP - General 03/14/23 Goals (unrecognized section and content) Goals may [...] BE BASED ON THE PRIMARY CLINICAL RECORDS. [facility] [employer] [facility]. provides no warranty or guarantee of the accuracy or completeness of information in this document.
== END 2024-11-21 08:57 | disposition home or self-care (01) ==
LOC: EC 08:56
PROVIDERS: Visit Provider Podiatrist Foot & Ankle Surgery
DX: M79.671 Pain in right foot (principal); M24.674 Ankylosis, right foot
CPT/HCPCS: 73630

== ENCOUNTER 2024-12-01 08:35 | Outpatient (RCR) | payer OTHER, SELFPAY | END 2025-03-22 09:09 | disposition home or self-care (01) | LOC: PT 08:35 | PROVIDERS: Visit Provider Podiatrist Foot & Ankle Surgery | DX: M14.671 Charcot's joint, right ankle and foot (principal) | CPT/HCPCS: 97110; 97112; 97140; 97162; 97530 ==

== ENCOUNTER 2024-12-10 08:07 | Outpatient (OUT) | payer OTHER, SELFPAY ==
--- NOTE | 2024-12-10 | XR_ITS ---
The [address] [address] Patient Name: LEVI SOFIA MRN: [id number] date: 1960 Sex: F Assigned Patient Location: [facility] Current Patient Location: [facility] Accession/Order Number: [id number] Exam Date: 12/10/2024 09:32 Report Date: 12/10/2024 09:47 At the request of: JULIO JOHNSON DPDurga Procedure: XR foot LIONEL min 3V BILATERAL FEET -4 views each COMPARISON: 01/09/2024 bilateral feet and ankles and right 11/21/2024. CLINICAL DATA: Follow-up bilateral foot surgery AP, lateral , oblique and tangential views of the calcaneus were obtained. There is redemonstration of bilateral fusion of both first tarsometatarsal joints. There are also screws at the calcaneus bilaterally. There are small screws at the neck of the left first metatarsal and suggestion of previous bunionectomy. These postoperative changes are stable. No acute fractures or dislocation are noted. Similar moderate degenerative changes are seen. There is flattening of the plantar arches. No significant soft tissue findings are noted. XR/XR foot LIONEL min 3V IMPRESSION: BILATERAL DEGENERATIVE AND POSTOPERATIVE CHANGES, SIMILAR TO THE PRIOR. NO ACUTE BONY FINDINGS. Impression dictated by: Rani Delgado M.D.12/10/2024 9:47 AM Dictation Location: [facility] Electronically authenticated by: [id number] Y Date: 12/10/2024 09:47
--- OUTSIDE RECORDS SUMMARY | 2024-12-10 08:12 | XMS_ITS | CCD ---
Author Organization [facility] Care Team Providers Care Home Health Caregiver Name Role Phone Mara Beverly Primary Care Provider SYSTEM, PROVIDER NOT IN Attending Unavaila ble SYSTEM, PROVIDER NOT IN Referring Unavaila ble PANDA BEVERLYER R Primary Care Unavailable SYSTEM, PROVIDER NOT IN Attending Unavaila ble SYSTEM, PROVIDER NOT IN Referring Unavaila ble SIRIA CHRISTOPHER R Primary Care Unavailable Brown Christopher R Primary Care Provider Mara Beverly Primary Care Provider Senait Ochoa Unavailable EXTENCARLOS Attending Unavailable BROWN, CHRISTOPHER R Primary Care Unavailable EXTEN, CARLOS GERBER Attending Unavailable BROWN, CHRISTOPHER R Primary Care Unavailable PRYKHOJAVIER HAWTHORNE Attending U navailable BROWN, CHRISTOPHER R Primary Care Unavailable EXTEN, CARLOS GERBER Attending Unavailable BROWN, CHRISTOPHER R Primary Care Unavailable BROWN, CHRISTOPHER R Admitting Unavailable ANNUAL CAMPAIGN MANAGERJASPREET CAMPBELL Attending Unavailab le BROWN, CHRISTOPHER R Referring Unavailable BROWN, CHRISTOPHER R Primary Care Unavailable ANNUAL CAMPAIGN MANAGERJASPREET CAMPBELL Attending Unavailab le BROWN, CHRISTOPHER [...] BROWN, CHRISTOPHER R Primary Care Unavailable EXTEN, CARLOSARABELLA FOREMANE Attending Unavailable EXTEN, CARLOS ZABRINA Referring Unavailable BROWN, CHRISTOPHER R Primary Care Unavailable EXTEN, CARLOS ZABRINA Attending Unavailable EXTEN, CARLOS ZABRINA Referring Unavailable BROWN, CHRISTOPHER R Primary Care Unavailable EXTEN, CARLOS ZABRINA Attending Unavailable EXTEN, CARLOS ZABRINA Referring Unavailable BROWN, CHRISTOPHER R Primary Care Unavailable EXTEN, CARLOS ZABRINA Attending Unavailable EXTEN, CARLOS ZABRINA Referring Unavailable BROWN, CHRISTOPHER R Primary Care Unavailable VISTJUVENCIO SENAIT MManjinder Admitting Unavailable VIKINGSTADSENAIT MManjinder Attending Unavailable BROWN, CHRISTOPHER R Primary Care Unavailable Viche Senaitnatalie Carlson Unavailable Mara BEVERLY Primary Care Physician Litzy Mack Unavailable Unavailable Lorna Almanzar Unavailable Unavailable JULIO JOHNSON Admitting Unavailable JULIO JOHNSON Attending Unavailable Jodi Pappas Consulting Unavailable JULIO JOHNSON Consulting Unavailable Mara BEVERLY Primary Care Physician BROWNPandaer Admitting Unavailable BROWN, Christopher Attending Unavailable Yuniel Oacsio Attending Unavailable EMELYN POLK Attending Unavailable SIRIA, Christopher Attending Unavailable Albino BEVERLYopher Admitting Unavailable Mara Beverly MD Primary Care Provider [phone] BROWN, Christopher Attending Unavailable BROWN, Christopher Attending Unavailable BROWN, Christopher Admitting Unavailable BROWN, Christopher Attending Unavailable BROWN, Christopher Attending Unavailable BROWN, Christopher Attending Unavailable BROWN, Christopher Attending Unavailable Yuniel Ocasio Attending Unavailable BROWN, Christopher Attending Unavailable BROWN, Christopher Referring Unavailable Farzad FRANCE Attending Unavailable Julio Johnson Attending Unavailable Julio Johnson Admitting Unavailable Julio Johnson DPM Attending Provider Mara BEVERLY Attending Unavailable Melva Grimaldo Attending Unavailable Melva Grimaldo Referring Unavailable BROWN, Christopher Attending Unavailable BROWN, Christopher Referring Unavailable BROWN, Christopher Attending Unavailable BROWN, Christopher Referring Unavailable BROWN, Christopher Admitting Unavailable BROWN, Christopher Admitting Unavailable BROWN, Christopher Attending Unavailable BROWN, Mara Attending Unavailable GRIMALDO, MELVA Hernández Attending Unavailable GRIMALDO, MELVA Hernández Referring Unavailable GRIMALDO, MELVA Hernández Referring Unavailable GRIMALDO, MELVA Hernández Attending Unavailable GRIMALDO, MELVA T Referring Unavailable GRIMALDO, MELVA T Attending Unavailable GRIMALDO, MELVA T Referring Unavailable GRIMALDO, MELVA T Referring Unavailable HAILY SHEPARD Attending Unavailable Allergies Allergy Classification Reported Allergen(s) Allergy Type Date of Onset Reaction(s) Facility (20 sources) Amoxicillin / Clavulanate; Translations: [AMOXICILLIN-POT CLAVULANATE] Drug Allergy 3 [facility] (20 sources) Chlorzoxazone; Translations: [CHLORZOXAZONE] Drug Allergy 9 [facility] (20 sources) moxifloxacin; Translations: [MOXIFLOXACIN] Drug Allergy 9 [facility] (20 sources) Penicillins; Translations: [PENICILLINS] Propensity to adverse reactions to drug 7 [facility] (20 sources) Penicillin; Translations: [penicillin] Drug Allergy [facility] Comment on above: Tolerated ceftriaxon e during 12/2017 admission (20 sources) Penicillin V; Translations: [penicillin V potassium] Drug Allergy Unknown (qualifier value) [facility] (5 sources) Amoxicillin / Clavulanate; Translations: [Augmentin] Drug Allergy [facility] Rep[facility] (1 source) moxifloxacin Drug Allergy [facility] (5 sources) Penicillin; Translations: [penicillin] Drug Allergy [facility] Rep[facility] (1 source) Parafon Forte Drug allergy (disorder) [facility] Rep[facility] (4 sources) moxifloxacin; Translations: [Avelox] Drug Allergy [facility] Rep[facility] (4 sources) Antibiotic; Translations: [Antibiotic] Propensity to adverse reactions (disorder) [facility] Repository (4 sources) Parafon Forte DSC; Translations: [Parafon Forte DSC] Propensity to adverse reactions (disorder) [facility] Repository (7 sources) Chlorzoxazone Drug Allergy 9 Unknown [facility] Medications Current Medications Medication Drug Class(es) Dates Sig (Normalized) Sig (Original) [id number] 200 actuat albuterol 0.09 mg/actuat metered dose [...] wheezing, 25 EA, Refill(s) 0, dx. J45.41, [facility], 179, cm, 09/27/22 13:30:00 EST, Height/Length Dosing, 130, kg, 09/27/22 13:30:00 EST, Weight Dosing Start Date: 09/28/22 Status: Ordered Start: 08-09-2022 take 1 dose by inhal ation every six hours ProAir HFA 90 mcg/inh inhalation aerosol 2 puff(s), Inhalation, q6hr for wheezing, 1 EA, Refill(s) 1, [facility], 179, cm, 06/28/22 9:21:00 EDT, Height/Length [...] q6hr for wheezing, 1 EA, Refill(s) 1, [facility], 178, cm, 07/11/21 10:05:00 EDT, Height/Length Dosing, 127, kg, 07/11/21 10:05:00 EDT, Weight Dosing Start Date: 07/11/21 Status: Ordered Start: 08-05-2019 take 2.5 mg by inhal ation every six hours for wheezing albuterol 0.083% Inh Mamie 3 mL 2.5 mg, 3 mL, Inhalation, q6hr for wheezing, 25 EA, Refill(s) 0, [facility] Start Date: 08/05/19 Status: Ordered Start: 08-05-2019 take 2.5 mg by inhal ation every six hours for wheezing albuterol 0.083% Inh Mamie 3 mL 2.5 mg, 3 mL, Inhalation, q6hr for wheezing, 25 EA, Refill(s) 0, [facility] Start Date: 08/05/19 Status: Ordered Albuterol (Eqv-ProAir HFA) 90 mcg/inh inhalation aerosol (12 sources) Start: 2024 take 2 puff(s) by inhalation every six hours Albuterol (Eqv-ProAir HFA) 90 mcg/inh inhalation aerosol 2 puff(s), Inhalation, q6hr, 8 gm, Refill(s) 5, other reason (Rx) Start Date: 03/09/24 Status: Ordered albuterol 0.833 mg/ml / ipratropium bromide 0.167 mg/ml inhalation solution (19 sources) Anticholinergi c, beta2-Adrenerg ic Agonist Start: [...] day(s), # 30 tab(s), Refills(s) 0, Pharmacy: [facility], 177, cm, 05/16/23 13:32:00 EDT, Height/Length [...] (20 sources) HMG-CoA Reductase Inhibitor Start: 04-27-2023 atorvastatin (Lipito r) 20 MG tablet 04/27/2023 Active Start: 01-12-2023 take 1 tablet by brendan th once daily at bedtime atorvastatin 20 mg Tab 20 mg = 1 tab(s), Oral, Once a day (at bedtime), # 90 tab(s), Refills(s) 1, Pharmacy: [facility], 179, cm, 09/27/22 13:30:00 EST, Height/Length Dosing, 130, kg, 09/27/22 13:30:00 EST, Weight Dosing Start Date: 01/12/23 Status: Ordered Start: 08-03-2022 take 1 tablet by brendan th once daily at bedtime atorvastatin 20 mg Tab 20 mg = 1 tab(s), Oral, Once a day (at bedtime), # 90 tab(s), Refills(s) 1, Pharmacy: [facility], 179, cm, 06/28/22 9:21:00 EDT, Height/Length Dosing, 129, kg, 06/28/22 9:21:00 EDT, Weight Dosing Start Date: 08/03/22 Status: Ordered Start: 01-25-2022 take 1 tablet by brendan th once daily at bedtime atorvastatin 20 mg Tab 20 mg = 1 tab(s), Oral, Once a day (at bedtime), # 90 tab(s), Refills(s) 1, Pharmacy: [email or web address] #[id number], 178, cm, 12/22/21 10:58:00 EST, Height/Length Dosing, [...] day(s), # 6 tab(s), Refills(s) 0, Pharmacy: [facility], 177, cm, 03/10/24 18:16:00 EDT, Height/Length Dosing, 128.6, kg, 03/10/24 18:16:00 EDT, Weight Dosing Start Date: 03/10/24 Stop Date: 03/15/24 Status: Ordered benzonatate 200 mg oral capsule (9 sources) Non-narcotic Antitussive Start: 03-21-2024 End: 03-31-2024 [...] tab(s), Oral, Daily, 90 tab(s), Refill(s) 1, [id number], 178, cm, 12/22/21 10:58:00 EST, Height/Length Dosing, 127.4, kg, 12/22/21 10:58:00 EST, Weight Dosing Start Date: 01/25/22 Status: Ordered take 1 tablet by brendan th once daily bisoprolol-hydrochlorothiazide (ZIAC) 5- 6.25 mg per tablet Take 1 tablet by mouth daily . 0 Active brompheniramine maleate 0.4 mg/ml / dextromethorphan hydrobromide 2 mg/ml / pseudoephedrine hydrochloride 6 mg/ml oral solution (6 sources) alpha-Adrenergic Agonist, Uncompetitive M-kvjnlm-M-aspartate Receptor Antagonist, Sigma-1 Agonist Start: 03-25-2024 take 5 mL by mouth four times daily for cough and congestion Bromfed DM oral syrup 5 mL, Oral, QID for cough and congestion, 200 mL, Refill(s) 0, [facility], 177, cm, 03/24/24 22:52:00 EDT, Height/Length Dosing, 128, kg, 03/24/24 22:52:00 EDT, Weight Dosing Start Date: 03/25/24 Status: Ordered 60 actuat budesonide 0.16 mg/actuat / formoterol fumarate 0.0045 mg/actuat metered dose inhaler (10 sources) Corticosteroid, beta2-Adrenergic Agonist Start: 07-09-2020 Symbicort [...] day(s), # 20 cap(s), Refills(s) 0, Pharmacy: [facility], 177, cm, 03/21/24 14:44:00 EDT, Height/Length [...] Daily, # 90 tab(s), Refills(s) 3, Pharmacy: [facility], 177, cm, 04/08/24 13:20:00 EDT, Height/Length Dosing, 125.7, kg, 04/08/24 13:18:00 EDT, Weight Dosing Start Date: 05/01/24 Status: Ordered clindamycin 300 mg oral capsule (8 sources) Lincosamide Antibacterial Start: 04-02-2024 End: 04-12-2024 take 1 capsule by mouth every six hours clindamycin 300 mg oral cap 300 mg = 1 cap(s), Oral, q6hr, X 10 day(s), # 40 cap(s), Refills(s) 0, [id number], 177, cm, 03/24/24 22:52:00 EDT, Height/Length Dosing, [...] BID, # 20 cap(s), Refills(s) 0, Pharmacy: [facility], 177, cm, 05/16/23 13:32:00 EDT, Height/Length Dosing, 127, kg, 05/16/23 13:31:00 EDT, Weight Dosing Start Date: 05/16/23 Status: Ordered doxycycline hyclate 100 mg oral capsule (3 sources) Tetracycline- class Drug Start: 10-17-2023 take 1 capsule by mouth twice daily doxycycline hyclate 100 mg Cap 100 mg = 1 cap(s), Oral, BID, # 20 cap(s), Refills(s) 0, Pharmacy: [facility], 178, cm, 10/17/23 14:51:00 EST, Height/Length Dosing, 127, kg, 10/17/23 14:51:00 EST, Weight Dosing Start Date: 10/17/23 Status: Ordered Start: 01-19-2023 End: 01-26-2023 take 1 capsule by mouth twice daily doxycycline hyclate 100 mg Cap 100 mg = 1 cap(s), Oral, BID, X 7 day(s), # 14 cap(s), Refills(s) 0, Pharmacy: [facility] #[facility], 179, cm, 01/19/23 16:50:00 EDT, Height/Length [...] Daily, # 90 cap(s), Refills(s) 3, Pharmacy: [facility], 177, cm, 12/10/23 18:47:00 EST, Height/Length Dosing, 124, kg, 12/10/23 18:47:00 EST, Weight Dosing Start Date: 02/13/24 Status: Ordered DULoxetine 30 mg Cap-EC (1 source) Start: 01-25-2022 take 1 capsule by mouth once daily DULoxetine 30 mg Cap-EC 30 mg = 1 cap(s), Oral, Daily, # 90 cap(s), Refills(s) 1, Pharmacy: [facility] #[id number], 178, cm, 12/22/21 10:58:00 EST, Height/Length Dosing, 127.4, kg, 12/22/21 10:58:00 EST, Weight Dosing Start Date: 01/25/22 Status: Ordered 168 hr estradiol 0.51396 mg/hr transdermal system (20 sources) Estrogen estradiol [...] Date: 04/13/20 Status: Ordered fluticasone / vilanterol (20 sources) Corticosteroid, beta2-Adrenergic Agonist Start: 10-12-2023 take 1 puff(s) by inhalation once daily Breo Ellipta 100 mcg-25 mcg inhalation powder 1 puff(s), Inhalation, Daily, 1 EA, Refill(s) 11, 30 dose unit, [facility], 177, cm, 05/16/23 13:32:00 EDT, Height/Length [...] DAY, # 90 tab(s), Refills(s) 4, Pharmacy: [facility], 177, cm, 05/12/24 19:05:00 EDT, Height/Length Dosing, 125, kg, 05/12/24 18:58:00 EDT, Weight Dosing Start Date: 07/30/24 Status: Ordered Start: 01-25-2022 take 1 tablet by brendan th once daily levothyroxine 137 mcg (0.137 mg) Tab 137 microgram = 1 tab(s), Oral, Daily, # 90 tab(s), Refills(s) 1, Pharmacy: [email or web address] #[id number], 178, cm, 12/22/21 10:58:00 EST, Height/Length Dosing, 127.4, kg, 12/22/21 10:58:00 EST, Weight Dosing Start Date: 01/25/22 Status: Ordered take 1 tablet by brendan th once daily levothyroxine (LEVO-T) 137 MCG tablet Take 137 mcg by mouth once daily . 0 Active losartan potassium 50 mg oral tablet (20 sources) Angiotensin 2 Receptor Miki Start: 04-27-2023 losartan (Cozaar) 50 MG tablet 04/27/2023 Active Start: 08-17-2022 take 1 tablet by brendan th twice daily losartan 50 mg Tab 50 mg = 1 tab(s), Oral, BID, # 180 tab(s), Refills(s) 3, Pharmacy: [facility], 179, cm, 08/12/22 12:43:00 EDT, Height/Length Dosing, 129, kg, 08/12/22 12:43:00 EDT, Weight Dosing Start Date: 08/17/22 Status: Ordered Start: 08-07-2022 take 1 tablet by brendan twice daily losartan 50 mg Tab 50 mg = 1 tab(s), Oral, BID, # 60 tab(s), Refills(s) 5, Pharmacy: [facility] #[id number], 179, cm, 06/28/22 9:21:00 EDT, Height/Length Dosing, 129, kg, 06/28/22 9:21:00 EDT, Weight Dosing Start Date: 08/07/22 Status: Ordered Start: 07-19-2022 take 1 tablet by [facility] once daily losartan 50 mg Tab 50 mg = 1 tab(s), Oral, Daily, # 30 tab(s), Refills(s) 5, Pharmacy: [facility] #[id number], 179, cm, 06/28/22 9:21:00 EDT, Height/Length Dosing, 129, kg, 06/28/22 9:21:00 EDT, Weight Dosing Start Date: 07/19/22 Status: Ordered Start: 06-28-2022 take 1 tablet by [facility] once daily losartan 25 mg Tab 25 mg = 1 tab(s), Oral, Daily, # 30 tab(s), Refills(s) 5, Pharmacy: [facility], 179, cm, 06/28/22 9:21:00 EDT, Height/Length Dosing, 129, kg, 06/28/22 9:21:00 EDT, Weight Dosing Start Date: 06/28/22 Status: Ordered methylPREDNISolone 4 mg oral tablet (8 sources) Corticosteroid Start: 03-18-2024 End: 03-24-2024 Medrol Dosepack 4 mg Tab = 1 packet(s), Oral, As Directed, as directed on package labeling, X 6 day(s), # 21 tab(s), Refills(s) 0, Pharmacy: [facility] #[facility], 177, cm, 03/10/24 18:16:00 EDT, Height/Length [...] qPM, # 90 tab(s), Refills(s) 1, Pharmacy: [facility] #[id number], 178, cm, 12/22/21 10:58:00 EST, Height/Length Dosing, [...] Nebulizer Machine (18 sources) Start: 09-28-2022 Nebulizer Mach ine Nebulizer Machine, See Instructions, 1 EA, 0, use with medication for inhalaiton dx.J45.41, [facility], Supply, 179, cm, 09/27/22 13:30:00 EST, Height/Length Dosing, 130, kg, 09/27/22 13:30:00 EST, Weight Dosing Start Date: 09/28/22 Status: Ordered Nebulizer machine tubing/ kit (18 sources) Start: 09-28-2022 Nebulizer mach ine tubing/ kit Nebulizer machine tubing/ kit, See Instructions, 1 EA, 0, use with nebulizer medication dx. J45.41, [facility], Supply, 179, cm, 09/27/22 13:30:00 [...] Active Start: 07-13-2022 take 1 capsule by [facility] once daily omeprazole 20 mg Cap-DR 20 mg = 1 cap(s), Oral, Daily, # 90 cap(s), Refills(s) 1, Pharmacy: [facility], 179, cm, 06/28/22 9:21:00 EDT, Height/Length Dosing, 129, kg, 06/28/22 9:21:00 EDT, Weight Dosing Start Date: 07/13/22 Status: Ordered Start: 03-27-2022 take 1 capsule by [facility] once daily omeprazole 20 mg Cap-DR 20 mg = 1 cap(s), Oral, Daily, # 90 cap(s), Refills(s) 1, Pharmacy: [facility] #[id number], 178, cm, 03/14/22 10:26:00 EDT, Height/Length Dosing, 126.9, kg, 03/14/22 10:26:00 EDT, Weight Dosing Start Date: 03/27/22 Status: Ordered take 1 capsule by [facility] once daily omeprazole (PRILOSEC) 20 MG capsule Take 20 mg by mouth daily . 0 Active omeprazole 20 mg Cap-DR (2 sources) Start: 10-13-2021 take 1 capsule by mouth once daily omeprazole 20 mg Cap-DR 20 mg = 1 cap(s), Oral, Daily, # 90 cap(s), Refills(s) 1, [id number], 178, cm, 09/13/21 10:38:00 EST, Height/Length Dosing, 130.6, kg, 09/13/21 10:28:00 EST, Weight Dosing Start Date: 10/13/21 Status: Ordered 24 hr oxybutynin chloride 15 mg extended release oral tablet (20 sources) Cholinergic Muscarinic Antagonist Start: 05-28-2024 take 1 tablet by mouth once daily oxybutynin 15 mg ER Tab 15 mg = 1 tab(s), Oral, Daily, # 90 tab(s), Refills(s) 4, Pharmacy: [facility], 177, cm, 05/12/24 19:05:00 EDT, Height/Length Dosing, 125, kg, 05/12/24 18:58:00 EDT, Weight Dosing Start Date: 05/28/24 Status: Ordered Start: 10-10-2023 take 1 tablet by brendan once daily oxybutynin 15 mg ER Tab 15 mg = 1 tab(s), Oral, Daily, # 90 tab(s), Refills(s) 1, Pharmacy: [facility] #[facility], 177, cm, 05/16/23 13:32:00 EDT, Height/Length Dosing, 127, kg, 05/16/23 13:31:00 EDT, Weight Dosing Start Date: 10/10/23 Status: Ordered Start: 05-01-2023 oxybutynin XL (Ditropan-XL) 15 MG 24 hr tablet 05/01/2023 Active Start: 12-20-2022 take 1 tablet by brendan once daily oxybutynin 15 mg ER Tab 15 mg = 1 tab(s), Oral, Daily, # 90 tab(s), Refills(s) 1, Pharmacy: [facility] #[facility], 179, cm, 09/27/22 13:30:00 EST, Height/Length Dosing, 130, kg, 09/27/22 13:30:00 EST, Weight Dosing Start Date: 12/20/22 Status: Ordered Start: 04-17-2022 take 1 tablet by brendan once daily oxybutynin 15 mg ER Tab 15 mg = 1 tab(s), Oral, Daily, # 90 tab(s), Refills(s) 1, Pharmacy: [facility] #[id number], 178, cm, 03/14/22 10:26:00 EDT, Height/Length Dosing, 126.9, kg, 03/14/22 10:26:00 EDT, Weight Dosing Start Date: 04/17/22 Status: Ordered Start: 01-11-2022 take 1 tablet by brendan once daily oxybutynin 15 mg ER Tab 15 mg = 1 tab(s), Oral, Daily, # 90 tab(s), Refills(s) 1, Pharmacy: [facility] #[id number], 178, cm, 12/22/21 10:58:00 EST, Height/Length Dosing, [...] Daily, # 90 tab(s), Refills(s) 1, Pharmacy: [facility], 179, cm, 05/18/22 15:39:00 EDT, Height/Length Dosing, 129, kg, 05/18/22 15:39:00 EDT, Weight Dosing Start Date: 06/23/22 Status: Ordered permethrin 50 mg/ml topical cream (12 sources) Pyrethroid Start: 04-08-2024 permethrin (Elimite) 5 % cream apply topically once as directed 04/08/2024 Active Start: 04-08-2024 permethrin Top 5% Crm 1 [place], Topical, Once, 60 gram, Refill(s) 0, [facility] #[facility], 177, cm, 04/08/24 13:20:00 EDT, Height/Length Dosing, 125.7, kg, 04/08/24 13:18:00 EDT, Weight Dosing Start Date: 04/08/24 Status: Ordered predniSONE 20 mg oral tablet (3 sources) Start: 03-07-2024 End: 03-14-2024 take 2 tablets by mouth once daily predniSONE 20 mg Tab 40 mg = 2 tab(s), Oral, Daily, X 7 day(s), # 14 tab(s), Refills(s) 0, Pharmacy: [facility] #[facility], 177, cm, 12/10/23 18:47:00 EST, Height/Length [...] days, # 12 tab(s), Refills(s) 0, Pharmacy: [facility] #[facility], 179, cm, 08/12/22 12:43:00 EDT, Height/Length [...] DAILY, # 180 cap(s), Refills(s) 4, Pharmacy: [facility] #[facility], 177, cm, 05/12/24 19:05:00 EDT, Height/Length Dosing, 125, kg, 05/12/24 18:58:00 EDT, Weight Dosing Start Date: 07/02/24 Status: Ordered Start: 12-31-2023 take 1 capsule by [facility] twice daily propranolol 80 mg Cap-ER 80 mg = 1 cap(s), Oral, BID, # 180 cap(s), Refills(s) 1, Pharmacy: [facility] #37, 177, cm, 12/10/23 18:47:00 EST, Height/Length Dosing, 124, kg, 12/10/23 18:47:00 EST, Weight Dosing Start Date: 12/31/23 Status: Ordered Start: 06-18-2023 take 1 capsule by [facility] twice daily propranolol 80 mg Cap-ER 80 mg = 1 cap(s), Oral, BID, # 180 cap(s), Refills(s) 1, Pharmacy: [facility] #[facility], 177, cm, 05/16/23 13:32:00 EDT, Height/Length Dosing, 127, kg, 05/16/23 13:31:00 EDT, Weight Dosing Start Date: 06/18/23 Status: Ordered Start: 05-01-2023 propranolol LA (Inderal LA) 80 MG 24 hr capsule 05/01/2023 Active Start: 12-20-2022 take 1 capsule by [facility] twice daily propranolol 80 mg Cap-ER 80 mg = 1 cap(s), Oral, BID, # 180 cap(s), Refills(s) 1, Pharmacy: [facility] #[facility], 179, cm, 09/27/22 13:30:00 EST, Height/Length Dosing, 130, kg, 09/27/22 13:30:00 EST, Weight Dosing Start Date: 12/20/22 Status: Ordered Start: 07-13-2022 take 1 capsule by [facility] twice daily propranolol 80 mg Cap-ER 80 mg = 1 cap(s), Oral, BID, # 60 cap(s), Refills(s) 5, Pharmacy: [facility] #[facility], 179, cm, 06/28/22 9:21:00 EDT, Height/Length Dosing, 129, kg, 06/28/22 9:21:00 EDT, Weight Dosing Start Date: 07/13/22 Status: Ordered Start: 04-11-2022 take 1 capsule by [facility] twice daily propranolol 80 mg Cap-ER 80 mg = 1 cap(s), Oral, BID, # 180 cap(s), Refills(s) 1, Pharmacy: [facility] #[id number], 178, cm, 03/14/22 10:26:00 EDT, Height/Length Dosing, 126.9, kg, 03/14/22 10:26:00 EDT, Weight Dosing Start Date: 04/11/22 Status: Ordered Start: 04-11-2022 take 1 capsule by [facility] once daily propranolol 80 mg Cap-ER 80 mg = 1 cap(s), Oral, Daily, # 90 cap(s), Refills(s) 1, Pharmacy: [facility] #[id number], 178, cm, 03/14/22 10:26:00 EDT, Height/Length Dosing, 126.9, kg, 03/14/22 10:26:00 EDT, Weight Dosing Start Date: 04/11/22 Status: Ordered sulfamethoxazole 800 mg / trimethoprim 160 mg oral tablet (5 sources) Dihydrofolate Reductase Inhibitor Antibacterial, Sulfonamide Antimicrobial Start: 05-16-2023 End: 05-31-2023 Bactrim D.S. 800 mg-160 mg Tab 1 tab(s), Oral, BID for 14 day(s), 28 tab(s), Refill(s) 0, [facility] #[facility], 177, cm, 05/16/23 13:32:00 EDT, Height/Length [...] relief, # 9 tab(s), Refills(s) 3, Pharmacy: [facility] #37, 177, cm, 12/10/23 18:47:00 EST, Height/Length [...] relief, # 9 tab(s), Refills(s) 0, Pharmacy: [facility] #37, 179, cm, 01/19/23 16:50:00 EDT, Height/Length [...] puff(s), Inhalation, BID, 3 EA, Refill(s) 1, [facility], 179, cm, 05/18/22 15:39:00 EDT, Height/Length Dosing, 129, kg, 05/18/22 15:39:00 EDT, Weight Dosing Start Date: 06/08/22 Status: Ordered Start: 07-11-2021 take 2 puff(s) by in halation twice daily Symbicort 160/4.5 inhalation aerosol with adapter 2 puff(s), Inhalation, BID, 3 EA, Refill(s) 1, [facility], 178, cm, 07/11/21 10:05:00 EDT, Height/Length [...] 0, 1-2 po q 4 prn pain, [facility], 177, cm, 05/16/23 13:32:00 EDT, Height/Length Dosing, 127, kg, 05/16/23 13:31:00 EDT, Weight Dosing Start Date: 05/16/23 Status: Ordered Start: 03-29-2023 take 1-2 tablets by mouth every four hours as needed for pain Percocet 5 mg-325 mg oral tablet See Instructions, 50 tab(s), Refill(s) 0, Take one to two every 4 hours as needed for pain., [facility] #[facility], 177, cm, 05/16/23 13:32:00 EDT, Height/Length Dosing, 127, kg, 05/16/23 13:31:00 EDT, Weight Dosing Start Date: 05/17/23 Status: Ordered betamethasone 3 mg/ml / betamethasone acetate 3 mg/ml injectable suspension (4 sources) Corticosteroid Start: 11-20-2024 End: 11-20-2024 betamethasone acetate-betamethasone sodium phosphate ([place]) injection 5 mg Start: 11-20-2024 End: 11-20-2024 5 mg, Intra-articular, Once PRN Procedure, Starting on [facility] 11/20/24 at 0923, For 1 dose diclofenac sodium 75 mg delayed release oral tablet (20 sources) Nonsteroidal Anti-inflammatory Drug Start: 11-29-2022 diclofenac sodium 75 mg Oral EC Tab 60 EA, 0 Refill(s), TAKE 1 TABLET BY MOUTH TWICE DAILY, Refills(s) 0 Start Date: 08/19/24 Status: Ordered fluconazole 150 mg oral tablet (20 sources) Azole Antifungal Start: 04-02-2024 take 1 tablet by mouth once fluconazole 150 mg Tab 150 mg = 1 tab(s), Oral, Once, one tab to be taken once, # 1 tab(s), Refills(s) 0, Pharmacy: [email or web address] #[id number], 177, cm, 03/24/24 22:52:00 EDT, Height/Length Dosing, 128, kg, 03/24/24 22:52:00 EDT, Weight Dosing Start Date: 04/02/24 Status: Ordered Start: 03-24-2024 take 1 tablet by mouth once fl uconazole 150 mg Tab 150 mg = 1 tab(s), Oral, Once, one tab to be taken once, # 1 tab(s), Refills(s) 0, Pharmacy: [facility] #[facility], 177, cm, 03/21/24 14:44:00 EDT, Height/Length [...] needed, # 2 tab(s), Refills(s) 0, Pharmacy: [facility] #[facility], 179, cm, 01/19/23 16:50:00 EDT, Height/Length Dosing, 133.5, kg, 01/19/23 16:50:00 EDT, Weight Dosing Start Date: 01/19/23 Status: Ordered Start: 12-22-2021 take 1 tablet by mouth once fl uconazole 150 mg Tab 150 mg = 1 tab(s), Oral, Once, # 1 tab(s), Refills(s) 1, Pharmacy: [facility] #[id number], 178, cm, 12/22/21 10:58:00 EST, Height/Length Dosing, [...] spray(s), Nasal, Daily, 3 EA, Refill(s) 1, [facility] #[id number], 178, cm, 12/16/20 10:55:00 EST, Height/Length Dosing, 125, kg, 12/16/20 10:55:00 EST, Weight Dosing Start Date: 01/25/21 Status: Ordered ProAir HFA 90 mcg/inh inhalation aerosol (8 sources) Start: 08-09-2022 take 1 dose by inhalation every six hours ProAir HFA 90 mcg/inh inhalation aerosol 2 puff(s), Inhalation, q6hr for wheezing, 1 EA, Refill(s) 1, [facility] #37, 179, cm, 06/28/22 9:21:00 EDT, Height/Length Dosing, 129, kg, 06/28/22 9:21:00 EDT, Weight Dosing Start Date: 08/09/22 Status: Ordered Start: 07-11-2021 take 2 puff(s) by in halation every six hours for wheezing ProAir HFA 90 mcg/inh inhalation aerosol 2 puff(s), Inhalation, q6hr for wheezing, 1 EA, Refill(s) 1, [facility], 178, cm, 07/11/21 10:05:00 EDT, Height/Length Dosing, 127, kg, 07/11/21 10:05:00 EDT, Weight Dosing Start Date: 07/11/21 Status: Ordered triamcinolone acetonide 0.055 mg/actuat metered dose nasal spray (20 sources) Corticosteroid Start: 01-25-2021 Nasacort Aller gy 24HR nasal spray 110 mcg, 2 spray(s), Nasal, Daily, 3 EA, Refill(s) 1, [facility] #[id number], 178, cm, 12/16/20 10:55:00 EST, Height/Length Dosing, [...] Toothache; Translations: [Arthralgia of temporomandibular joint] Onset: 12-10-1905-19-2020 Episodic E Codes: Natural/environment (1 source) Bite [...] left knee] Onset: 03-15-20 Chronic Other aftercare (7 sources) Patient encounter status; Translations: [Aftercare following [...] of feet] Chronic Other connective tissue disease (11 sources) Artificial knee joint present; Translations: [Presence [...] pain 05-19-2019 Episodic Other non-traumatic joint disorders (11 sources) Pain in left knee; Translations: [Pain in joint, lower leg] Onset: 07-05-03-2023 Episodic Other non-traumatic joint disorders (1 source) [...] Recurrent sinusitis; Translations: [Chronic maxillary sinusitis] Onset: 03-13-20 22 10-19-2021 Chronic Otitis media and related conditions (2 [...] 08-05-2022 Episodic Joint disorders and dislocations; trauma-related (7 sources) Dislocation of patellofemoral joint; Translations: [Unspecified [...] IN RIGHT FOOT] Onset: 08-02-2022 Episodic Other screening for suspected conditions (not [...] Resolved: 05-20-2019 08-25-2019 Episodic Residual codes; unclassified (7 sources) History of arthroscopy of knee joint; Translations: [Other specified postprocedural states] Onset: 06-19-2023 06-19-2023 Episodic Unclassified (20 sources) Entire nasal sinus (body structure) Resolved: 08-13-2012 05-19-2019 Comment on above: sinus problems, with nasal congestion Unclassified (20 sources) Entire temporomandibular joint (body structure) 04-06-2015 Unclassified (2 sources) Acute pain of right knee 11-24-2024 Results Test Name Value Interpretation Reference Range Facil ity No Panel Informationon 11-20 Nicole Lin MA 11/24/2024 2:53 PM L Inj/Asp: R knee on 11/20/2024 9:23 AM Indications: diagnostic evaluation Details: 22 G needle Medications: 5 mg betamethasone acetate-betamethaso ne sodium phosphate 6 (3-3) MG/ML Outcome: tolerated well, no immediate complications Consent was given by the patient. [facility] 10-20-20 [facility] Case Information Case Priority: None Programs: -- Referral Source: Electric Wheelchair Repairer Referral Reason: Care coordination Case Type: Transition [...] propionate hyd (more content not included)... Normal [facility] 10-13-20 [facility] Case Information Case Priority: None Programs: -- Referral Source: Electric Wheelchair Repairer Referral Reason: Care coordination Case Type: Transition [...] propionate hyd (more content not included)... Normal [facility] 10-06-20 [facility] Case Information Case Priority: None Programs: -- Referral Source: Electric Wheelchair Repairer Referral Reason: Care coordination Case Type: Transition [...] propionate hyd (more content not included)... Normal [facility] Reminderson 10-01-2024 Reminders Reminders -- From: Joann Hinton R.N. To: [facility] Clinical Staff Rn; Joann Hinton R.N.; Sent: 10/01/2024 06:35:05 EST Show up: 10/01/2024 06:35:00 EST Subject: carlos #2 Due Date/Time: 10/07/2024 06:35:00 EST Reminder/Recall Normal [facility] Ambulatory Visit Summaryon 1 12-01-2023 Ambulatory Visit [...] AM EDT With: Mara BEVERLY MD Where: [facility] [address] [place] [address]- 2024 11:00 AM EDT With: Where: [facility] [address] [place] [address]- You Need to Schedule the Following Appointments Follow Up with Mara BEVERLY MD, FAM When: Comments: see me in February Where: [address] [place] [address]- Medications What How Much When Instructions Unchanged [...] citalopram (c (more content not included)... Normal [facility] Family Medicine Office/Clini c Noteon 09-30-2024 Family Medicine Office/Clinic Note Family Medicine Office/Clinic Note Chief Complaint ere for follow up from [place], ankle surgery The patient presents for a hospitalization follow-up and general health maintenance. History of Present Illness The patient is a 64-year-old female presenting with a post-hospitalizatio n follow-up. She underwent Charcot foot surgery on September 02 at [facility] followed by rehabilitation at [facility] from September 04 to September 25. Reports [...] glucose monitoring was not conducted at the correction, her diabetes, complicated by diabetic polyneuropathy, remains controlled through diet. The patient reported impaired mobility primarily due to the surgical intervention, and she adapted using a wheelchair at home. Additionally, she experienced leg swelling and calf pain briefly post-discharge, which she attributed to increased activity. Constipation was a significant issue during her correction stay, having experienced just four bowel movements [...] - Gastrointestinal: Reports difficulty swallowing during the correction stay; reports leg swelling upon standing. - [...] -Use Moderatio (more content not included)... Normal [facility] Comment on above: Result Comment: Elec tronically Signed By: SIRIA ARMENTA, Mara\.christiana\Date and Time Signed: 09/30/24 19:10 EST Pathology study report docum entOrdered By: Javier Nixon on 09-05-2024 Pathology study [facility] Other Phone: Carl 09-02-2024 L Specimen: [id number] Received: 09/03/24 Status: FIDEL Devika Num: [id number] Spec Type: Surgical Subm Dr: Julio Johnson DPM, Tissues: A Bone Fragments - Other than Path Fracture (RIGHT FOOT BONE) Procedures: PATRICIA, Gross/Micro L3, Decalcification Age/ Patient Sex Location Account Attending Physician Levi Sofia 64/F LABELL [id number] Julio Johnson DPM, MS SPEC NUM: [id number] RECD: 09/03/24 STATUS: FIDEL CREWS NUM: [id number] GILBERT: 09/02/[address]: Julio Johnson DPM, MS ENTERED: 09/03/24 [facility] DR: Alex,Timmy SPEC TYPE: Surgical DEPT: ELDER BERRIOS ENTERED BY: [id number] RECV BY: [id number] ORDERED: HE, Gross/Micro L3, Decalcification ORDERED: HE, [...] reveal lazcano firm and uniform medullary bone. Desktop Technician sections are submitted in a single cassette after decalcification. (1, , CH04-009 A) Microscopic Description Microscopic examination is performed. Specimen: [id number] Received: 09/03/24 Status: FIDEL Crews Num: [id number] Spec Type: Surgical Subm Dr: Julio Johnson,VILMA, [place] Tissues: A Bone Fragments - Other than Path Fracture (RIGHT FOOT BONE) Procedures: HE, Gross/Micro L3, Decalcification Patient: Levi Sofia [id number] (Continued) Specimen: [id number] Received: 09/03/24 (Continued) Signed (signatur e on file) Javier Nixon MD 09/05/24 1145 Specimen: [id number] Received: 09/03/24 Status: FIDEL Crews Num: [id number] Spec Type: Surgical Subm Dr: Julio Johnson,VILMA, [place] Tissues: A Bone Fragments - Other than Path Fracture (RIGHT FOOT BONE) Procedures: PATRICIA, Gross/Micro L3, Decalcification Patient: Levi Sofia [id number] (Continued) Specimen: [id number] Received: 09/03/24 (Continued) CPT Codes 17019, 41786 Specimen: [id number] Received: 09/03/24 Status: FIDEL Salasaudie Num: [id number] Spec Type: Surgical Subm Dr: Julio Johnson,VILMA, MS Tissues: A Bone Fragments - Other than Path Fracture (RIGHT FOOT BONE) Procedures: PATRICIA, Gross/[place] L3, Decalcification Patient: Levi Sofia [id number] (Continued) Signed (signatur e on file) Javier Nixon MD 09/05/[address] [facility] Provider Letteron 08-21-2024 Provider Letter Provider Letter [address] [place] [address] [id number] August 21, 2024 LEVI SOFIA [address] [place] [address] : [address] Johnson: I appreciated [...] good response. I reviewed her laboratories from [facility] completed August 13. There is no anemia [...] successful outcome. Sincerely: Mara Beverly MD,FAAFP Normal [facility] Ambulatory Visit Summaryon 1 Ambulatory Visit Summary [...] Mara BEVERLY MD Primary Care Physician - BROWN MD, Christopher This Is Your Medications List [facility] Prescription (Nebulizer Machine) [facility] Prescription (Nebulizer machine tubing/ kit) albuterol (Albuterol [...] Follow-Up Appointments 2024 11:00 AM EDT Where: [facility] [address] [place] [address]- You Need to Schedule the Following Appointments Follow Up with SIRIA ARMENTA, EVI Nicole When: Within 6 months Comments: staff call [facility] need her recent labs and EKG from 08/12/24 Where: [address] [place] [address]- Medications What How Much When Instructions Unchanged albuterol (Albuterol (Eqv-ProAir HFA) 90 mcg/ inh inhalation aerosol) 2 Puffs Inhalation Every 6 (more content not included)... Normal [facility] Ambulatory Visit Summary Ambulatory Visit Summary LEVI [...] Follow-Up Appointments 2024 11:00 AM EDT Where: [facility] [address], [place] [address]- You Need to Schedule the Following Appointments Follow Up with SIRIA ARMENTA, EVI Nicole When: Within 6 months Comments: staff call [facility] need her recent labs and EKG from 08/12/24 Where: [address] [place] [address]- Medications What How Much When Instructions Unchanged albuterol (Al (more content not included)... Normal [facility] Family Medicine Office/Clini c Noteon 08-19-2024 Family [...] thick but supple no obvious thyromegaly fair qagan tayagungin dentition with repairs oropharynx pink and moist [...] pain. 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 Very stooped posture. Assessment/Plan 1. Annual visit for general adult medical examination without abnormal findings (Z00.00: Encounter for general adult medical examination without abnormal findings) Patient is up-to-date with all general health maintenance. She will obtain flu vaccine and Prevnar 20 at the pharmacy. Ordered: 1125F Pain severity quantified; pain present A1c POC [id number] Advance care planning discussion documented in the [...] previously bee (more content not included)... Normal [facility] Comment on above: Result Comment: Elec tronically Signed By: SIRIA ARMENTA, Mara\.christiana\Date and Time Signed: 08/19/24 16:40 EDT Family [...] of clutter to prevent tripping and/or falling. [place] Advance Directives reviewed. Documents to be completed, [...] any sensitivity (more content not included)... Normal [facility] Comment on above: Result Comment: Elec tronically Signed By: Mara BEVERLY MD\.br\Date and Time Signed: 08/19/24 16:34 EDT\.br\Electronically Co-Signed By: Amanda JEFFERSON, Andra Luis\.br\Date and Time Co-Signed: 08/19/24 16:15 EDT Nonvisit Note - PTon 024 Nonvisit Note - PT Nonvisit Note - PT woke up and is not feeling well Normal [facility] XR Knee - left 3 [facility] [...] no fracture, dislocation, tumor or infection seen. [facility] XR Knee - right 3 [facility] [...] no fracture, dislocation, tumor or infection seen. [facility] Nonvisit Note - PTon 024 Nonvisit Note - PT Nonvisit Note - PT Chart reviewed with eval prepped for scheduled eval. KK Normal [facility] XR Knee - left 3 [facility] Study observation (narrative) [facility] XR Knee - right 3 [facility] Study observation (narrative) [facility] BD Bone Density DEXAon 05-18 BD [...] Cartagena MD Transcribed by: HENRIETTA Technologist: NICK Normal [facility] MA Mamm Screen w/CAD if perf and [...] VERY IMPORTANT TO YOUR HEALTH. THE CURRENT [employer] GUIDELINES RECOMMENDS ANNUAL MAMMOGRAPHY BEGINNING AT AGE 40. THIS FACILITY UTILIZES A REMINDER SYSTEM TO ENSURE ALL PATIENTS RECEIVE REMINDER NOTIFICATIONS AT THE APPROPRIATE TIME BASED ON THE RECOMMENDATIONS OF THIS EXAM. Report Ordering Provider: Mara BEVERLY FINAL REPORT Dictated: 05/18/2024 12:33 pm Audie Cartagena MD Signed (Electronic Signature): 05/18/2024 12:33 pm Signed by: Audie Cartagean MD Transcribed by: HENRIETTA Technologist: JEROMY Assessment: BI-RADS Category 1-Negative Recommendation: Normal interval follow-up Normal [facility] U Microalbon 05-13-2024 Albumin DL <= 20 mg/L (U) [Mass/Vol] 1.7 mg/dL Normal 0.0-1.9 [facility] Comment on above: Performed By: #### 1 [id number] #### [facility] [address] [place] [address] U Protein/Creat Ratioon 04-22 Protein/Creatinine (U) [Ratio] 9.40 mg/gm Cr Normal .00-200.00 [facility] Comment on above: Performed By: #### 1 [id number] #### [facility] [address] [place] [address] U Creatinine 139.0 mg/dL Invalid Interpretation Code [facility] Comment on above: Performed By: #### 1 [id number] #### [facility] [address] [place] [address] Ur Total Protein 13.1 mg/dL Invalid Interpretation Code [facility] Comment on above: Performed By: #### 1 [id number] #### [facility] [address] [place] [address] Ambulatory Visit Summaryon 0 05-12-2024 Ambulatory Visit [...] Farzad FRANCE MD Where: [facility] Invalid Interpretation Code [address] [place] [address]- \.br\ Sunday 3:40 PM EDT \.br\ With: Mara BEVERLY MD\.br\ Where: [facility] Family Medicine Office/Clini c Noteon 05-12-2024 [...] medications but would certainly give consideration to Nino or Leti with her renal insufficiency Ordered: [facility] Internal Ambulatory Referral 2. Type 2 diabetes mellitus with hyperlipidemia (E11.69: Type 2 diabetes mellitus with other specified complication) Continue current statin and must exercise great caution with dietary compliance. Dietary constraints reviewed to help reduce triglycerides Ordered: [facility] Internal Ambulatory Referral 3. Diabetes mellitus with renal manifestation (E11.29: Type 2 diabetes mellitus with other diabetic kidney complication) See #4 patient will set up diabetic eye exam. Ordered: [facility] Internal Ambulatory Referral 4. Chronic renal impairment, [...] 7. C (more content not included)... Normal [facility] Comment on above: Result Comment: Elec tronically Signed By: SIRIA ARMENTA, Mara\.br\Date and Time Signed: 05/12/24 20:23 EDT [id number] 04-15-2024 HbA1c (Bld) [Mass fraction] 6.6 % High <=5.9 [facility] Comment on above: Order Comment: Just spoke with clinical laboratory assistant. Please add this test to blood drawn earlier today, thank you Performed By: #### 7 [id number] #### [facility] [address] [place] [address] Advance Beneficiary Notifica tionson 04-14-2024 Advance Beneficiary Notifications [phone] [id number] Normal [facility] CBC w/ Auto Diffon Basophils/100 WBC (Bld) 1.3 % Normal 0.0-2.0 [facility] Comment on above: Performed By: #### 2 [id number] #### [facility] [address] [place] [address] Basophils/Leukocyte s Auto (Bld) [Pure # fraction] 0.1 E9/L Normal 0.0-0.2 [facility] Comment on above: Performed By: #### 2 [id number] #### [facility] [address] [place] [address] Eosinophils (Bld) [#/Vol] 0.2 E9/L Normal 0.0-0.5 [facility] Comment on above: Performed By: #### 2 [id number] #### [facility] [address] [place] [address] Eosinophils/100 WBC (Bld) 3.8 % Normal 0.0-8.0 [facility] Comment on above: Performed By: #### 2 [id number] #### [facility] [address] [place] [address] Erythrocyte distribution width (RBC) [Ratio] 14.8 % High 10.9-14.2 [facility] Comment on above: Performed By: #### 2 [id number] #### [facility] [address] [place] [address] Hematocrit (Bld) [Volume fraction] 39.9 % Normal 34.0-46.0 [facility] Comment on above: Performed By: #### 2 [id number] #### [facility] [address] [place] [address] Hemoglobin (Bld) [Mass/Vol] 13.7 g/dL Normal 12.0-16.0 [facility] Comment on above: Performed By: #### 2 [id number] #### [facility] [address] [place] [address] Lymphocytes (Bld) [#/Vol] 2.1 E9/L Normal 1.0-4.0 [facility] Comment on above: Performed By: #### 2 [id number] #### [facility] [address] [place] [address] Lymphocytes/100 WBC (Bld) 35.4 % Normal 14.0-50.0 [facility] Comment on above: Performed By: #### 2 [id number] #### [facility] [address] [place] [address] MCH (RBC) [Entitic mass] 31.5 pg Normal 27.0-34.0 [facility] Comment on above: Performed By: #### 2 [id number] #### [facility] [address] [place] [address] MCHC (RBC) [Mass/Vol] 34.2 g/dL Normal 31.4-36.0 [facility] Comment on above: Performed By: #### 2 [id number] #### [facility] [address] [place] [address] MCV (RBC) [Entitic vol] 92.0 fL Normal 80.0-100.0 [facility] Comment on above: Performed By: #### 2 [id number] #### [facility] [address] [place] [address] Monocytes (Bld) [#/Vol] 0.4 E9/L Normal 0.2-1.0 [facility] Comment on above: Performed By: #### 2 [id number] #### [facility] [address] [place] [address] Neutrophils (Bld) [#/Vol] 3.0 E9/L Normal 2.0-7.5 [facility] Comment on above: Performed By: #### 2 [id number] #### [facility] [address] [place] [address] Neutrophils/100 WBC (Bld) 52.2 % Normal 36.0-75.0 [facility] Comment on above: Performed By: #### 2 [id number] #### [facility] [address] [place] [address] Platelet 251.0 E9/L Normal 150.0-500.0 [facility] Comment on above: Performed By: #### 2 [id number] #### [facility] [address] [place] [address] Platelet mean volume (Bld) [Entitic vol] 8.7 fL Normal 6.4-10.8 [facility] Comment on above: Performed By: #### 2 [id number] #### [facility] [address] [place] [address] RBC (Bld) [#/Vol] 4.3 E12/L Normal 4.3-5.9 [facility] Comment on above: Performed By: #### 2 [id number] #### [facility] [address] [place] [address] WBC corrected for nucl RBC Auto (Bld) [#/Vol] 5.8 E9/L Normal 4.0-11.0 [facility] Comment on above: Performed By: #### 2 [id number] #### [facility] [address] [place] [address] CHEMISTRYOrdered By: SYSTEM SYSTEM on 04-14-2024 Albumin [...] 04-14-2024 Albumin [Mass/Vol] 4.2 g/dL Normal 3.3-5.0 [facility] Comment on above: Performed By: #### 2 [id number] #### [facility] [address] [place] [address] Albumin/Globulin (S) [Mass conc ratio] 1.4 Normal 1.1-2.2 [facility] Comment on above: Performed By: #### 2 [id number] #### [facility] [address] [place] [address] ALP [Catalytic activity/Vol] 75 Int._Unit/L Normal 21-98 [facility] Comment on above: Performed By: #### 2 [id number] #### [facility] [address] [place] [address] ALT No additional P-5'-P [Catalytic activity/Vol] 23 Int._Unit/L Normal 6-46 [facility] Comment on above: Performed By: #### 2 [id number] #### [facility] [address] [place] [address] Anion gap [Moles/Vol] 13 mmol/L Normal 6-16 [facility] Comment on above: Performed By: #### 2 [id number] #### [facility] [address] [place] [address] AST [Catalytic activity/Vol] 19 Int._Unit/L Normal 5-43 [facility] Comment on above: Performed By: #### 2 [id number] #### [facility] [address] [place] [address] Bilirubin [Mass/Vol] 0.5 mg/dL Normal 0.0-1.1 [facility] Comment on above: Performed By: #### 2 [id number] #### [facility] [address] [place] [address] Calcium [Mass/Vol] 10.0 mg/dL Normal 8.9-11.1 [facility] Comment on above: Performed By: #### 2 [id number] #### [facility] [address] [place] [address] Chloride [Moles/Vol] 105 mmol/L Normal 101-111 [facility] Comment on above: Performed By: #### 2 [id number] #### [facility] [address] [place] [address] CO2 [Moles/Vol] 25 mmol/L Normal 21-31 [facility] Comment on above: Performed By: #### 2 [id number] #### [facility] [address] [place] [address] Creatinine [Mass/Vol] 1.2 mg/dL Normal 0.5-1.3 [facility] Comment on above: Performed By: #### 2 [id number] #### [facility] [address] [place] [address] Globulin (S) [Mass/Vol] 3.1 g/dL Normal 1.4-4.0 [facility] Comment on above: Performed By: #### 2 [id number] #### [facility] [address] [place] [address] Glucose [Mass/Vol] 140 mg/dL Normal 55-199 [facility] Comment on above: Performed By: #### 2 [id number] #### [facility] [address] [place] [address] Potassium [Moles/Vol] 4.7 mmol/L Normal 3.5-5.3 [facility] Comment on above: Performed By: #### 2 [id number] #### [facility] [address] [place] [address] Protein [Mass/Vol] 7.3 g/dL Normal 6.0-7.8 [facility] Comment on above: Performed By: #### 2 [id number] #### [facility] [address] [place] [address] Sodium [Moles/Vol] 138 mmol/L Normal 135-145 [facility] Comment on above: Performed By: #### 2 [id number] #### [facility] [address] [place] [address] Urea nitrogen [Mass/Vol] 28 mg/dL High 5-21 [facility] Comment on above: Performed By: #### 2 [id number] #### [facility] [address] [place] [address] Urea nitrogen/Creatinine [Mass ratio] 23 No Units High 10-20 [facility] Comment on above: Performed By: #### 2 [id number] #### [facility] [address] [place] [address] Consent for Treatmenton 03-23 Consent for Treatment [id number]#[id number] Normal [facility] HEMATOLOGYOrdered By: SYSTEM SYSTEM on 04-14-2024 Basophils/100 [...] 04-14-2024 Cholesterol [Mass/Vol] 164 mg/dL Normal 120-200 [facility] Comment on above: Performed By: #### 2 [id number] #### [facility] [address] [place] [address] Cholesterol in HDL [Mass/Vol] 42 mg/dL Invalid Interpretation Code [facility] Comment on above: Result Comment: '>= 60 LOW RISK' '<= 40 HIGH RISK' Performed By: #### 2 [id number] #### [facility] [address] [place] [address] Cholesterol in LDL [Mass/Vol] 83 mg/dL Normal <=129 [facility] Comment on above: Performed By: #### 2 [id number] #### [facility] [address] [place] [address] Cholesterol in VLDL [Mass/Vol] 49 mg/dL High 7-40 [facility] Comment on above: Performed By: #### 2 [id number] #### [facility] [address] [place] [address] Triglyceride [Mass/Vol] 246 mg/dL High <=149 [facility] Comment on above: Performed By: #### 2 [id number] #### [facility] [address] [place] [address] TSH With T4fr Reflexon 04-14 TSH Qn 2.34 m[IU]/L Normal 0.34-5.60 [facility] Comment on above: Performed By: #### 1 [id number] #### [facility] [address] [place] [address] eGFRon 04-14-2024 eGFR 50 mL/min/1.73 m2 Low >=59 [facility] Comment on above: Order Comment: Order added by Discern Expert. Performed By: #### 1 [id number] #### [facility] [address] [place] [address] Family Medicine Office/Clini c Noteon 04-08-2024 Family Medicine Office/Clinic Note Chief Complaint possible bed bug bites HPI Staff Pt. states she stayed at a hotel in [place], thinks she may have bed bug bites. Has noted bites on legs, arms and stomach, some are itchy. Has tried hydrocortisone cream History of Present Illness Reviewed and agree with above documented HPI by medical center representative. Portions of this record may have been created with voice recognition artificial intelligence software, specifically [employer], [employer] and or [employer]. Substitutions may have occurred due to the inherent limitations of voice recognition and artificial intelligence software. Patient is a 63-year-old female who presents to the [facility] care, for insect bites to her [...] alert, active Assessment/Plan 64-year-old female presented to [facility] care, for bedbug bites, exposure this past weekend, stepped in a hole to her room on Sunday night, started with the lesions on Sunday, about 2 days ago, no facial swelling cellulitis, patient appears ill or septic, respiratory distress, difficulty swallowing. Patient was given a prescription for permethrin lotion, take woye-vev-dzantyu Benadryl as needed for itchiness, follow-up with [...] [place], Topical, Once, 60 gram, Refill(s) 0, [facility], 177, cm, 04/08/24 13:20:00 EDT, Height/Length Dosing, 125.7, kg, 04/08/24 13:18:00 EDT, Weight Dosing Follow-up With When Contact Information SIRIA ARMENTA, Mara, [facility] [address] [phone]- Additional Instructions: Patient Education BMI for Adults Bedbugs, Ekdb-rm-Judo Problem List/Past Medical History Ongoing Allergic rhinitis [...] in adul (more content not included)... Normal [facility] Comment on above: Result Comment: Elec tronically [...] face, mouth, tongue, or throat. ? 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 ? Itchy, red, swollen areas [...] provider. Document Revised: 12/26/2022 Document Reviewed: 12/21/2022 [employer] Patient Education ? 2022 [employer] Nutrition BMI for Adults What is BMI? Body mass index (BMI) is a number that is calculated from a person's weight and height. BMI can help estimate how much of a person' (more content not included)... Normal [facility] Discharge Instructionson Discharge Instructions [id number]#[id number] Normal [facility] ED Clinical Summaryon 2023 ED Clinical Summary [address] [id number] ED Clinical Summary Person Information Name: LEVI SOFIA Anneliese/[facility] Age: 64 Years : 1960 Sex: Female Language: Congolese PCP: Mara BEVERLY MD Marital Status: Visit [...] 03/25/2024 00:56:05 03/25/2024 00:56:05 03/25/2024 00:56:05 ADDRESS: [address] [id number] [facility] DOC NOTES: MEDICAL INFORMATION: Prescriptions Given: New Medications [facility], [address], [place] [id number], [phone] brompheniramine/dex tromethorphan/PSE (Bromfed DM oral syrup) 5 [...] Adult Follow up: With: Address: When: [place] [address] Business (1) In 3 days DIAGNOSIS: Asthma exacerbation Normal [facility] ED Note-Physicianon 03-25-20 ED Note-Physician Basic Information [...] and Complexity of Problems Differential Diagnosis: [] MDM Data External documents reviewed: N/A My EKG [...] cough and congestion, 200 mL, Refill(s) 0, [facility], 177, cm, 03/24/24 22:52:00 EDT, Height/Length Dosing, 128, kg, 03/24/24 22:52:00 EDT, Weight Dosing B-Type Natriuretic Peptide Basic Metabolic Panel CBC w/ Auto Diff ECG 12 Lead Adult ED Cardiac Monitoring eGFR Influenza A&B Ag Oxygen Saturation Oxygen Therapy PT & PTT Rapid COVID Antigen ([facility]) Saline Lock Insert Troponin 0 Hr. Troponin [...] Mara BEVERLY In 3 days [address] [phone] Business (1) Additional Instructions: Patient Education Asthma, [...] exam Histor (more content not included)... Normal [facility] Comment on above: Result Comment: Elec tronically [...] (shortness of breath). ? 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 ? Chest tightness. ? Tiredness [...] Follow these instructions at home: ? Take eyzn-fgi-jiszmwf and prescription medicines only as told by [...] ? You (more content not included)... Normal [facility] ED Patient Summaryon 024 ED Patient Summary [address] [id number] Patient Discharge Instructions Person Information Name: LEVI SOFIA Age: 64 Years Arrival Date: 03/24/2024 22:39:26 Discharge Diagnosis: Asthma exacerbation Primary Care Physician: Mara BEVERLY MD Provider Information Primary Provider: Yuniel Ocasio DO [employer] Claims Specialist:None The exam and treatment you received in the Emergency Department were for an urgent problem and are not intended as complete care. It is important that you follow up with a doctor, nurse practitioner, or physician?s printer's assistant for ongoing care. If your symptoms become worse or you do not improve as expected and you are unable to reach your usual health care provider, you should return to the Emergency Department. We are available 24 hours a day. LEVI SOFIA has been given the following list of patient education materials, prescriptions and follow-up instructions: Follow-up Instructions: With: Address: When: [place] [address] Business (1) In 3 days In the event that this physician does not participate in your insurance network, please consult with your insurance company to find a nearby participating provider. Patient Education Materials: Asthma, Adult A MESSAGE TO ALL PATIENTS REGARDING OPIOIDS PRESCRIPTION OPIOIDS: WHAT YOU NEED TO KNOW Prescription opioids can be used to help relieve evztplqb-hw-gffgtv pain and are often prescribed following a [...] be struggling with addiction, tell your health youth care specialist and ask for guidance or call [facility]?S National Helpline at 4-037-103-JOXH. v Source: [place] Department of Health and Human Services (more content not included)... Normal [facility] Troponin 1 Hr.Ordered By: Kiggit on 03-25-2024 Troponin HS 2.90 pg/mL Low 10.10-27.10 [facility] Comment on above: Interpretive Data: T he 95% CI (Confidence Interval) PPV (Positive Predictive Value) for myocardial infarction in females is 38 pg/mL, in males 51 pg/mL. The results should be used in conjunction with clinical conditions of myocardial infarction. (Access High Sensitivity Troponin I Instructions For Use, Yaima [place], May 2018) Order Comment: 1hr d raw @ :02 Result Comment: The 95% CI (Confidence Interval) PPV (Positive Predictive Value) for myocardial infarction in females is 38 pg/mL, in males 51 pg/mL. The results should be used in conjunction with clinical conditions of myocardial infarction. (Access High Sensitivity Troponin I Instructions For Use, Yaima [place], May 2018) Performed By: #### 1 [id number] #### [facility] [address] [place] [address] XR Chest Single Viewon 03-25 XR Chest [...] mGy = na DAP = na Normal [facility] BMPon 03-24-2024 Anion gap [Moles/Vol] 15 mmol/L Normal 6-16 [facility] Comment on above: Performed By: #### 2 [id number] #### [facility] [address] [place] [address] Calcium [Mass/Vol] 9.4 mg/dL Normal 8.9-11.1 [facility] Comment on above: Performed By: #### 2 [id number] #### [facility] [address] [place] [address] Chloride [Moles/Vol] 99 mmol/L Low 101-111 [facility] Comment on above: Performed By: #### 2 [id number] #### [facility] [address] [place] [address] CO2 [Moles/Vol] 25 mmol/L Normal 21-31 [facility] Comment on above: Performed By: #### 2 [id number] #### [facility] [address] [place] [address] Creatinine [Mass/Vol] 1.3 mg/dL Normal 0.5-1.3 [facility] Comment on above: Performed By: #### 2 [id number] #### [facility] [address] [place] [address] Glucose [Mass/Vol] 146 mg/dL Normal 55-199 [facility] Comment on above: Performed By: #### 2 [id number] #### [facility] [address] [place] [address] Potassium [Moles/Vol] 4.0 mmol/L Normal 3.5-5.3 [facility] Comment on above: Performed By: #### 2 [id number] #### [facility] [address] [place] [address] Sodium [Moles/Vol] 135 mmol/L Normal 135-145 [facility] Comment on above: Performed By: #### 2 [id number] #### [facility] [address] [place] [address] Urea nitrogen [Mass/Vol] 40 mg/dL High 5-21 [facility] Comment on above: Performed By: #### 2 [id number] #### [facility] [address] [place] [address] Urea nitrogen/Creatinine [Mass ratio] 31 No Units High 10-20 [facility] Comment on above: Performed By: #### 2 [id number] #### [facility] [address] [place] [address] BNPon 03-24-2024 Natriuretic peptide B (Bld) [Mass/Vol] 14 pg/mL Normal 5-80 [facility] Comment on above: Performed By: #### 1 [id number] #### [facility] [address] [place] [address] CBC w/ Auto Diffon 4 Basophils/100 WBC (Bld) 0.7 % Normal 0.0-2.0 [facility] Comment on above: Performed By: #### 2 [id number] #### [facility] [address] [place] [address] Basophils/Leukocyte s Auto (Bld) [Pure # fraction] 0.1 E9/L Normal 0.0-0.2 [facility] Comment on above: Performed By: #### 2 [id number] #### [facility] [address] [place] [address] Eosinophils (Bld) [#/Vol] 0.1 E9/L Normal 0.0-0.5 [facility] Comment on above: Performed By: #### 2 [id number] #### [facility] [address] [place] [address] Eosinophils/100 WBC (Bld) 0.4 % Normal 0.0-8.0 [facility] Comment on above: Performed By: #### 2 [id number] #### [facility] [address] [place] [address] Erythrocyte distribution width (RBC) [Ratio] 14.7 % High 10.9-14.2 [facility] Comment on above: Performed By: #### 2 [id number] #### [facility] [address] [place] [address] Hematocrit (Bld) [Volume fraction] 39.6 % Normal 34.0-46.0 [facility] Comment on above: Performed By: #### 2 [id number] #### [facility] [address] [place] [address] Hemoglobin (Bld) [Mass/Vol] 13.2 g/dL Normal 12.0-16.0 [facility] Comment on above: Performed By: #### 2 [id number] #### [facility] [address] [place] [address] Lymphocytes (Bld) [#/Vol] 2.6 E9/L Normal 1.0-4.0 [facility] Comment on above: Performed By: #### 2 [id number] #### [facility] [address] [place] [address] Lymphocytes/100 WBC (Bld) 16.3 % Normal 14.0-50.0 [facility] Comment on above: Performed By: #### 2 [id number] #### [facility] [address] [place] [address] MCH (RBC) [Entitic mass] 30.7 pg Normal 27.0-34.0 [facility] Comment on above: Performed By: #### 2 [id number] #### [facility] [address] [place] [address] MCHC (RBC) [Mass/Vol] 33.3 g/dL Normal 31.4-36.0 [facility] Comment on above: Performed By: #### 2 [id number] #### [facility] [address] [place] [address] MCV (RBC) [Entitic vol] 92.3 fL Normal 80.0-100.0 [facility] Comment on above: Performed By: #### 2 [id number] #### [facility] [address] [place] [address] Monocytes (Bld) [#/Vol] 1.0 E9/L Normal 0.2-1.0 [facility] Comment on above: Performed By: #### 2 [id number] #### [facility] [address] [place] [address] Neutrophils (Bld) [#/Vol] 12.1 E9/L High 2.0-7.5 [facility] Comment on above: Performed By: #### 2 397353 #### [facility] [address] [place] [address] Neutrophils/100 WBC (Bld) 76.0 % High 36.0-75.0 [facility] Comment on above: Performed By: #### 2 [id number] #### [facility] [address] [place] [address] Platelet mean volume (Bld) [Entitic vol] 7.5 fL Normal 6.4-10.8 [facility] Comment on above: Performed By: #### 2 [id number] #### [facility] [address] [place] [address] Platelets (Bld) [#/Vol] 194.0 E9/L Normal 150.0-500.0 [facility] Comment on above: Performed By: #### 2 [id number] #### [facility] [address] [place] [address] RBC (Bld) [#/Vol] 4.3 E12/L Normal 4.3-5.9 [facility] Comment on above: Performed By: #### 2 [id number] #### [facility] [address] [place] [address] WBC corrected for nucl RBC Auto (Bld) [#/Vol] 15.9 E9/L High 4.0-11.0 [facility] Comment on above: Performed By: #### 2 [id number] #### [facility] [address] [place] [address] CHEMISTRYOrdered By: SYSTEM SYSTEM on 03-24-2024 Anion [...] 14 pg/mL Normal 5 - 80 pg/mL [facility] HemeManSS COAGULATIONOrdered By: Raeann Avila on 03-24-2024 aPTT Coag (PPP) [Time] 29.2 s Normal 25.1 - 36.5 second(s) [facility] Auto Coag Comment on above: Interpretive Data: [...] the same coagulation reagent and instrumentation as [facility]. Currently there are no coagulation studies available worldwide for children to 14 days, and no normal ranges. Heparin therapeutic range (represented by Anti-Factor Xa activity of 0.2 - 0.4 U/mL) corresponds to PTT of 56.6 - 109.0 sec. INR Coag (PPP) [Relative time] 0.95 {INR} Invalid Interpretation Code [facility] Auto Coag Comment on above: Interpretive Data: I NR results are specifically intended to assess patients stabilized on long-term Anticoagulation therapy suggested INR s Less Intensive Anticoagulation 2.0 3.0 Conventional Range 3.0 4.5 PT Coag (PPP) [Time] 10.6 s Normal 9.4 - 12.5 second(s) [facility] Auto Coag Comment on above: Interpretive Data: [...] the same coagulation reagent and instrumentation as [facility]. Currently there are no coagulation studies available worldwide for children to 14 days, and no normal ranges. Consent for Treatmenton Consent for Treatment [id number]#[id number] Normal [facility] HEMATOLOGYOrdered By: SYSTEM SYSTEM on 03-24-2024 Basophils/100 [...] Agon Influenzae A Ag Negative Normal Negative [facility] Comment on above: Performed By: #### 1 [id number] #### [facility] [address] [place] [address] Influenzae B Ag Negative Normal Negative [facility] Comment on above: Result Comment: Test sensitivity and specificity vary for age group, specimen type, antigen types, and prevalence of disease. Test results must be evaluated in conjunction with other clinical data available to the physician. Individuals who received nasally administered Influenza A vaccine may have positive test results up to 3 days after vaccination. Performed By: #### 1 [id number] #### [facility] [address] [place] [address] MICRO OTHER TESTSOrdered By: Caroline Avila on 03-24-2024 Influenzae A Ag Negative (03/24/24 11:05 PM) Normal Negative [facility] Man Sero Influenzae B Ag Negative 1 (03/24/24 11:05 PM) Normal Negative [facility] Man Sero Comment on above: Interpretive Data: [...] NEG Ctl Pass (03/24/24 11:05 PM) Normal [facility] Man Sero Rapid COV Int POS Ctl Pass (03/24/24 11:05 PM) Normal [facility] Sero SARS-CoV+SARS-CoV-2 (COVID-19) Ag IA.rapid Ql (Resp) Not Detected 7 (03/24/24 11:05 PM) Normal Not Detected [facility] Man Sero Comment on above: Interpretive Data: T he Leho Veritor System for Rapid Detection of SARS-CoV-2 [...] Coag (PPP) [Time] 29.2 second(s) Normal 25.1-36.5 [facility] Comment on above: Result Comment: Para meter [...] the same coagulation reagent and instrumentation as [facility]. Currently there are no coagulation studies available worldwide for children to 14 days, and no normal ranges. Heparin therapeutic range (represented by Anti-Factor Xa activity of 0.2 - 0.4 U/mL) corresponds to PTT of 56.6 - 109.0 sec. Performed By: #### 1 [id number] #### [facility] [address] [place] [address] INR Coag (PPP) [Relative time] 0.95 {INR} Invalid Interpretation Code [facility] Comment on above: Result Comment: INR results are specifically intended to assess patients stabilized on long-term Anticoagulation therapy suggested INR?s ?Less Intensive Anticoagulation? 2.0 ? 3.0 Conventional Range 3.0 ? 4.5 Performed By: #### 1 [id number] #### [facility] [address] [place] [address] PT Coag (PPP) [Time] 10.6 second(s) Normal 9.4-12.5 [facility] Comment on above: Result Comment: 15 d [...] the same coagulation reagent and instrumentation as [facility]. Currently there are no coagulation studies available worldwide for children to 14 days, and no normal ranges. Performed By: #### 1 [id number] #### [facility] [address] [place] [address] Rapid COVID Antigen ([facility])on 03-24-2024 Rapid COV Int NEG Ctl Pass Normal [facility] Comment on above: Performed By: #### 2 [id number] #### [facility] [address] [place] [address] Rapid COV Int POS Ctl Pass Normal [facility] Comment on above: Performed By: #### 2 [id number] #### [facility] [address] [place] [address] SARS-CoV+SARS-CoV-2 (COVID-19) Ag IA.rapid Ql (Resp) Not detected Normal Not Detected [facility] Comment on above: Result Comment: The [employer]? System for Rapid Detection of SARS-CoV-2 is [...] or revoked sooner. Performed By: #### 2 [id number] #### [facility] [address] [place] [address] Troponin 0 Hr.on 03-24-2024 Troponin HS 4.00 pg/mL Low 10.10-27.10 [facility] Comment on above: Result Comment: The 95% CI (Confidence Interval) PPV (Positive Predictive Value) for myocardial infarction in females is 38 pg/mL, in males 51 pg/mL. The results should be used in conjunction with clinical conditions of myocardial infarction. (Access High Sensitivity Troponin I Instructions For Use, Yaima Edward, May 2018) Performed By: #### 1 [id number] #### [facility] [address] [place] [address] eGFRon 03-24-2024 eGFR 46 mL/min/1.73 m2 Low >=59 [facility] Comment on above: Order Comment: Order added by Discern Expert. Performed By: #### 1 [id number] #### [facility] [address] [place] [address] Ambulatory Visit Summaryon 0 03-21-2024 Ambulatory Visit [...] PM EDT With: Mara BEVERLY MD Where: [facility] Normal [address] [place] [address]- \.br\ You Need to Schedule the Following Appointments\.br\ Follow Up with Mara BEVERLY MD, [facility] When: Only if needed\.br\ Where:\.br\ \.br\ Medications\.br\ What How Much When Instructions\.br\ New benzonatate (benzonatate 200 mg oral capsule) 1 Capsules By Mouth 3 times a day Duration: 10 Days Pickup at [facility]\.br\ Unchanged albuterol (Albuterol (Eqv-ProAir HFA) 90 [...] if questions or concerns \.br\ Pharmacy Information\.br\ [facility]: [address] [place], [place] [id number] [phone]\.br\ Allergies\.br\ Augmentin (hives)\.br\ Avelox (Hives)\.br\ Parafon Forte [...] Pollen.\.br\ ? \.br\ Air pollution (like household product manufacturing professional, wood smoke, smog, or chemical odors).\.br\ What are the signs or Oropeza [facility] Office/Clini c Noteon 03-21-2024 Family [...] 30 cap (more content not included)... Normal [facility] Comment on above: Result Comment: Elec tronically [...] ? Pollen. ? Air pollution (like household product manufacturing professional, wood smoke, smog, or chemical odors). What [...] polyester or cotton. General instructions ? Take glwy-psy-oexnofz and prescription medicines only as told by [...] pollute the air. These may include household product manufacturing professional, wood smoke, smog, or chemical odors. This information is not intended to replace advice given to you by your health care provider. Make sure you discuss any questions you have with your health care provi (more content not included)... [facility] [facility] Patient Correspondenceon Patient Correspondence [id number] B#1.00TIFF [facility] Ambulatory Visit Summaryon 0 03-10-2024 Ambulatory Visit Summary LEVI SOFIA Luís :1960 Visit Date:03/10/2024 Ambulatory Visit Instructions Your [...] PM EDT With: Mara BEVERLY MD Where: [facility] [address], [address] [place] [phone]- \.br\ Medications\.br\ What How Much When Instructions\.br\ [...] ? \.br\ Air pollutants such as household product manufacturing professional, aerosol sprays, strong odors, and smoke of [...] cause of your asthma attack.\.br\ ? \.b [facility] Office/Clini c Noteon 03-10-2024 Family [...] day(s), # 6 tab(s), Refills(s) 0, Pharmacy: [facility], 177, cm, 03/10/24 18:16:00 EDT, Height/Length Dosing, 128.6, kg, 03/10/24 18:16:00 EDT, Weight Dosing fluconazole, See Instructions, Take one po q 3 day as needed for post op yeast, # 2 caplet(s), Refills(s) 0, Pharmacy: [facility], 177, cm, 03/10/24 18:16:00 EDT, Height/Length Dosing, 128.6, kg, (more content not included)... Normal [facility] Comment on above: Result Comment: Elec tronically [...] grass. ? Air pollutants such as household product manufacturing professional, aerosol sprays, strong odors, and smoke of [...] these instructions at home: Medicines ? Take yimu-blr-izdyobl and prescription medicines only as told by [...] to co (more content not included)... Normal [facility] Physician Referralon 024 Physician Referral [id number] 60#1.00TIFF Normal [facility] Ambulatory Visit Summaryon 0 12-10-2023 Ambulatory Visit Summary BISMARKLEVI Luís :1960 Visit Date:12/10/2023 Ambulatory Visit Instructions Your [...] PM EDT With: Mara BEVERLY MD Where: [facility] Normal [facility] Office/Clini c Noteon 12-10-2023 Family Medicine Office/Clinic Note Chief Complaint 6mo chk up, rf sumitriptan to [place], needs orders to get [place] [facility] and would like to add vitamin levels. [...] Urnls Dip Stick Auto w/ Microscopy POC 96227 2. Combined hyperlipidemia (E78.2: Mixed hyperlipidemia) Continues on moderate intensity atorvastatin to help prevent cardiovascular disease risk progression. Requesting labs to be done before next follow-up. Ordered: Urnls Dip Stick Auto w/ Microscopy POC 05535 3. Detrusor instability of bladder (N32.81: Overactive [...] voiding and reduce nocturnal fluid intake Ordered: [facility] Internal Ambulatory Referral Urnls Dip Stick Auto w/ Microscopy POC 51506 4. Fasting hyperglycemia (R73.01: Impaired fasting glucose) Continue limiting carbohydrates in the diet to prevent any progression diabetes mellitus Ordered: Urnls Dip Stick Auto w/ Microscopy POC 06335 5. Depression, major, recurrent, in partial remission (F33.41: Major depressive disorder, recurrent, in partial remission) Doing nicely with venlafaxine we will continue the same patient defers any need for counseling family is very supportive and she is doing much better now that she is retired from work Ordered: Urnls Dip Stick Auto w/ Microscopy POC 91423 6. Hypothyroidism, congenital (E03.1: Congenital hypothyroidism witho (more content not included)... Normal [facility] Comment on above: Result Comment: Elec tronically Signed By: SIRIA ARMENTA, Mara\.christiana\Date and Time Signed: 12/10/23 21:26 EST Patient [...] Spices. Seasoni (more content not included)... Normal [facility] Patient Correspondenceon Patient Correspondence [id number] 0F#1.00TIFF Normal [facility] Patient Correspondenceon Patient Correspondence [id number] FB#1.00TIFF Normal [facility] Office/Clini c Noteon 10-17-2023 Family Medicine Office/Clinic Note Chief Complaint possible sinus infection HPI Staff 63 year old female presents with possible sinus infection. Sinus pressure, itchy ears, drainage, symptoms started about 5 days ago. History of Present Illness rm 1 Portions of this record may have been created with voice recognition artificial intelligence software, specifically [employer], [employer] and or [employer]. Substitutions may have occurred due to the [...] BID, # 20 cap(s), Refills(s) 0, Pharmacy: [facility], 178, cm, 10/17/23 14:51:00 EST, Height/Length Dosing, 127, kg, 10/17/23 14:51:00 EST, Weight Dosing Follow-up With When Contact Information SIRIA ARMENTA, Mara, [address] [address]- Additional Instructions: Patient Education Sinus Infection, Adult, Fuvk-ij-Swun BMI for Adults Problem List/Past Medical History [...] Cataract extract (more content not included)... Normal [facility] Comment on above: Result Comment: Elec tronically [...] ? Medicines that treat allergies (antihistamines). ? Wuqq-cmq-trthspg pain relievers. ? If caused by bacteria, your doctor may wait to see if you will get better without treatment. You may be given antibiotic medicine if you have: ? A very bad infection. ? A weak body defense system. ? If caused by growths in the nose, surgery may be needed. Follow these instructions at home: Medicines ? Take, use, or apply bfru-zro-bukntqs and prescription medicines only as told by [...] cannot use soap and water, use hand manager meat. ? Do not smoke. Avoid being around [...] follow-up visits (more content not included)... Normal [facility] Consultation Noteon 09-17-20 Consultation Note [id number] 3#1.00TIFF Normal [facility] CHEMISTRYOrdered By: SYSTEM SYSTEM on 05-17-2023 Anion gap [Moles/Vol] 10 mmol/L Normal 6 - 16 mEq/L [facility] Chloride [Moles/Vol] 105 mmol/L Normal 101 - 111 mmol/L [facility] CO2 [Moles/Vol] 27 mmol/L Normal 21 - 31 mmol/L [facility] Creatinine [Mass/Vol] 1.1 mg/dL Normal 0.5 - 1.3 mg/dL [facility] Remisol GFR/1.73 sq M.predicted among non-blacks MDRD (S/P/Bld) [Vol rate/Area] 56 mL/min/1.73 m2 Low >=59mL/min/1.73 m2 [facility] Chem S Potassium [Moles/Vol] 4.7 mmol/L Normal 3.5 - 5.3 mmol/L [facility] Sodium [Moles/Vol] 137 mmol/L Normal 135 - 145 mmol/L [facility] Urea nitrogen [Mass/Vol] 26 mg/dL High 5 - 21 mg/dL [facility] HEMATOLOGYOrdered By: SYSTEM SYSTEM on 05-17-2023 [...] 14.0 - 50.0 % [facility] HemeAutoSS Lymphocytes/Leukocy balyne Auto (Bld) [Pure # fraction] 1.0 E9/L [...] 7.8 fL Normal 6.4 - 10.8 fL [facility] HemeAutoSS Platelets (Bld) [#/Vol] 196.0 E9/L Normal 150.0 - 500.0 E9/L [facility] HemeAutoSS RBC (Bld) [#/Vol] 3.9 E12/L Low 4.3 - 5.9 E12/L [facility] HemeAutoSS WBC corrected for nucl RBC Auto (Bld) [#/Vol] 9.6 E9/L Normal 4.0 - 11.0 E9/L [facility] HemeAutoSS CHEMISTRYOrdered By: SYSTEM SYSTEM on 05-16-2023 Anion gap [Moles/Vol] 13 mmol/L Normal 6 - 16 mEq/L [facility] Chloride [Moles/Vol] 103 mmol/L Normal 101 - 111 mmol/L [facility] Remisol CO2 [Moles/Vol] 24 mmol/L Normal 21 - 31 mmol/L [facility] Remisol Creatinine [Mass/Vol] 1.2 mg/dL Normal 0.5 - 1.3 mg/dL [facility] Remisol GFR/1.73 sq M.predicted among non-blacks MDRD (S/P/Bld) [Vol rate/Area] 51 mL/min/1.73 m2 Low >=59mL/min/1.73 m2 [facility] Chem S Glucose post fast [Mass/Vol] 132 mg/dL High 55 - 99 mg/dL [facility] Potassium [Moles/Vol] 3.8 mmol/L Normal 3.5 - 5.3 mmol/L [facility] Remisol Sodium [Moles/Vol] 136 mmol/L Normal 135 - 145 mmol/L [facility] Remisol Urea nitrogen [Mass/Vol] 31 mg/dL High 5 - 21 mg/dL [facility] Remisol HEMATOLOGYOrdered By: Millicent Andrade on 05-16-2023 Erythrocyte distribution width (RBC) [Ratio] 14.9 % High 10.9 - 14.2 % [facility] HemeAutoSS Hematocrit (Bld) [Volume fraction] 42.0 % Normal 34.0 - 46.0 % [facility] HemeAutoSS Hemoglobin (Bld) [Mass/Vol] 14.2 g/dL Normal 12.0 - 16.0 gm/dL [facility] HemeAutoSS MCH (RBC) [Entitic mass] 31.5 pg Normal 27.0 - 34.0 pg [facility] HemeAutoSS MCHC (RBC) [Mass/Vol] 33.9 g/dL Normal [...] Interpretation Code Negative [facility] UA Auto SS [place].plasma/Lith ium.RBC (Bld) [Mass ratio] 0-3 /HPF Normal [...] [facility] UA Auto SS Urobilinogen Qn (U) [id number] {Rupert'U}/dL Normal 0.0 - 1.0 EU/dL [facility] [...] by: JODI PAPPAS Date: 2022-08-02 17:14 Normal [facility] CHEMISTRYOrdered By: SYSTEM SYSTEM on 07-20-2022 [...] [Vol rate/Area] mL/min/1.73 m2 Normal >=59mL/min/1.73 m2 [facility] Chem S GFR/1.73 sq M.predicted among non-blacks MDRD (S/P/Bld) [Vol rate/Area] mL/min/1.73 m2 Normal >=59mL/min/1.73 m2 [facility] Chem S Glucose [Mass/Vol] 111 mg/dL Normal [...] OXOIDSon 05-05-2022 DIPHTHERIA ANTITOXOID 0.41 IU/mL Normal [facility] Comment on above: Order Comment: FASTI [...] analytical performance characteristics have been determined by [facility] [place], [place]. It has not been cleared or approved by the U.S. Food and Drug Administration. This assay has been validated pursuant to the CLIA regulations and is used for clinical purposes. Performed By: #### 5 43, 542, 545, 539 #### [facility] [address], [address] [place] [address] Machine Gunner: Lenin Larson MD #### [id number] #### [facility] [address] [place] [address] Machine Gunner: Sejal Johns MD,PhD,HENRIETTA #### 43800 #### [facility] [address] [facility] [place] [address] Machine Gunner: Sherwin Jay M.D.,PhD TETANUS ANTITOXOID 5.47 IU/mL Normal [facility] Comment on above: Order Comment: FASTI [...] analytical performance characteristics have been determined by [facility] [place], [place]. It has not been cleared or approved by the U.S. Food and Drug Administration. This assay has been validated pursuant to the CLIA regulations and is used for clinical purposes. Performed By: #### 5 43, 542, 545, 539 #### [facility] [place] [address] , [address] [place] [address] Machine Gunner: Lenin Larson MD #### 60531 #### [facility], [address] [place] [address] Machine Gunner: Sejal Johns MD,PhD,HENRIETTA #### 19868 #### [facility]/[address] [place], [place] Machine Gunner: Sherwin Jay M.D.,PhD IMMUNOGLOBULIN Aon 2 IMMUNOGLOBULIN A 239 mg/dL Normal 70-320 [facility] Comment on above: Performed By: #### 5 43, 542, 545, 539 #### [facility] [address], [address] [place] [address] Machine Gunner: Lenin Larson MD #### 87549 #### [facility]/[place] [address] Machine Gunner: Sejal Johns MD,PhD,HENRIETTA #### 07684 #### [facility]/[address] [place] Machine Gunner: Sherwin Jay M.D.,PhD IMMUNOGLOBULIN Edis 2 IMMUNOGLOBULIN E 77 kU/L Normal [facility] Comment on above: Performed By: #### 5 43, 542, 545, 539 #### [facility] [place] [address] , [address] [place] [address] Machine Gunner: Lenin aLrson MD #### [id number] #### [facility], [address] [place], [place] Machine Gunner: Sejal Johns MD,PhD,HENRIETTA #### 35266 #### [facility]/[address] [place] Machine Gunner: Sherwin Jay M.D.,PhD IMMUNOGLOBULIN Lenard 2 IMMUNOGLOBULIN G 1305 mg/dL Normal 600-1540 [facility] Comment on above: Performed By: #### 5 43, 542, 545, 539 #### [facility] [address], [address] [place] [address] Machine Gunner: Lenin Larson MD #### 49832 #### [facility], [address] [place] [address] Machine Gunner: Sejal Johns MD,PhD,HENRIETTA #### 94727 #### [facility]/[address] [place] Machine Gunner: Sherwin Jay M.D.,PhD IMMUNOGLOBULIN Mon 2 IMMUNOGLOBULIN M 203 mg/dL Normal 50-300 [facility] Comment on above: Performed By: #### 5 43, 542, 545, 539 #### [facility] [address], [address] [place] [address] Machine Gunner: Lenin Larson MD #### 49482 #### [facility], [address] [place], [place] Machine Gunner: Sejal Johns MD,PhD,HENRIETTA #### 15626 #### [facility]/[place] [id number] [facility] [place], [place] Machine Gunner: Sherwin Jay M.D.,PhD STREPTOCOCCUS PNEUMONIAE AB (IGG) (23 SEROTYPES)on 05-05-2022 SEROTYPE 1 (1) 1.1 Normal [facility] Comment on above: Performed By: #### 5 43, 542, 545, 539 #### [facility] of [place] [address], [address] [place] [address] Machine Gunner: Lenin Larson MD #### 78663 #### [facility], [address] [place] [address] Machine Gunner: Sejal Johns MD,PhD,HENRIETTA #### 17004 #### [facility]/[address] [place] Machine Gunner: Sherwin Jay M.D.,PhD SEROTYPE 12 (12F) 0.5 Normal [facility] Comment on above: Performed By: #### 5 43, 542, 545, 539 #### [facility] of [place] [address], [address] [place] [address] Machine Gunner: Lenin Larson MD #### 43244 #### [facility], [address] [place] [address] Machine Gunner: Sejal Johns MD,PhD,HENRIETTA #### 90864 #### [facility]/[address] [place] Machine Gunner: Sherwin Jay M.D.,PhD SEROTYPE 14 (14) 3.3 Normal [facility] Comment on above: Performed By: #### 5 43, 542, 545, 539 #### [facility] of [place] [address], [address] [place] [address] Machine Gunner: Lenin Larson MD #### 94304 #### [facility], [address] [place] [place] [address] Machine Gunner: Sejal Johns MD,PhD,HENRIETTA #### 75967 #### [facility]/[address] [place], [place] Machine Gunner: Sherwin Jay M.D.,PhD SEROTYPE 17 (17F) 5.4 Normal [facility] Comment on above: Performed By: #### 5 43, 542, 545, 539 #### [facility] of [facility] [address], [address] [place] [address] Machine Gunner: Lenin Larson MD #### 26893 #### [facility], [address] [place] [address] Machine Gunner: Sejal Johns MD,PhD,HENRIETTA #### 01702 #### [facility]/[address] [place] Machine Gunner: Sherwin Jay M.D.,PhD SEROTYPE 19 (19F) 4.3 Normal [facility] Comment on above: Performed By: #### 5 43, 542, 545, 539 #### [facility] of [place] [address], [address] [place] [address] Machine Gunner: Lenin Larson MD #### 78353 #### [facility], [facility] [place] [address] Machine Gunner: Sejal Johns MD,PhD,HENRIETTA #### 00845 #### [facility]/[address] [place] Machine Gunner: Sherwin Jay M.D.,PhD SEROTYPE 2 (2) 1.0 Normal [facility] Comment on above: Performed By: #### 5 43, 542, 545, 539 #### [facility] of [facility] [address], [address] [place] [address] Machine Gunner: Lenin Larson MD #### 88045 #### [facility], [address] [place] [address] Machine Gunner: Sejal Johns MD,PhD,HENRIETTA #### 09617 #### [facility]/[address] [place], [place] Machine Gunner: Sherwin Jay M.D.,PhD SEROTYPE 20 (20) 1.8 Normal [facility] Comment on above: Performed By: #### 5 43, 542, 545, 539 #### [facility] of [facility] [address], [address] [place] [address] Machine Gunner: Lenin Larson MD #### 99340 #### [facility], [address] [place] [id number] Machine Gunner: Sejal Johns MD,PhD,HENRIETTA #### 17043 #### [facility]/[address] [place] Machine Gunner: Sherwin Jay M.D.,PhD SEROTYPE 22 (22F) <0.3 Normal [facility] Comment on above: Performed By: #### 5 43, 542, 545, 539 #### [facility] [address], [address] [place] [address] Machine Gunner: Lenin Larson MD #### 11682 #### [facility], [address] [place] [address] Machine Gunner: Sejal Johns MD,PhD,HENRIETTA #### 73229 #### [facility]/[address] [place], [place] Machine Gunner: Sherwin Jay M.D.,PhD SEROTYPE 23 (23F) 4.9 Normal [facility] Comment on above: Performed By: #### 5 43, 542, 545, 539 #### [facility] of [facility] [address], [address] [place] [address] Machine Gunner: Lenin Larson MD #### 94196 #### [facility], [address] [place] [address] Machine Gunner: Sejal Johns MD,PhD,HENRIETTA #### 72836 #### [facility]/[address] [place] Machine Gunner: Sherwin Jay M.D.,PhD SEROTYPE 26 (6B) 0.5 Normal [facility] Comment on above: Performed By: #### 5 43, 542, 545, 539 #### [facility] of [facility] [address], [address] [place] [address] Machine Gunner: Lenin Larson MD #### 00679 #### [facility], [address] [place] [address] Machine Gunner: Sejal Johns MD,PhD,HENRIETTA #### 55339 #### [facility]/[address] [place] Machine Gunner: Sherwin Jay M.D.,PhD SEROTYPE 3 (3) 0.7 Normal [facility] Comment on above: Performed By: #### 5 43, 542, 545, 539 #### [facility] of [facility] [address], [address] [place] [address] Machine Gunner: Lenin Larson MD #### 02341 #### [facility], [address] [place] [address] Machine Gunner: Sejal Johns MD,PhD,HENRIETTA #### 92520 #### [facility]/[place] [address] [facility] [address] [place], [place] Machine Gunner: Sherwin Jay M.D.,PhD SEROTYPE 34 (10A) 1.3 Normal [facility] Comment on above: Performed By: #### 5 43, 542, 545, 539 #### [facility] of [place] [address] , [address] [place] [address] Machine Gunner: Lenin Larson MD #### 83470 #### [facility] [place], [address] [facility], [place] [phone] Machine Gunner: Sejal Johns MD,PhD,HENRIETTA #### 59902 #### [facility]/[address] [place] Machine Gunner: Sherwin Jay M.D.,PhD SEROTYPE 4 (4) 2.1 Normal [facility] Comment on above: Performed By: #### 5 43, 542, 545, 539 #### [facility] of [place] [address] , [address] [place] [address] Machine Gunner: Lenin Larson MD #### 59270 #### [facility], [address] [facility], [place] [phone] Machine Gunner: Sejal Johns MD,PhD,HENRIETTA #### 15039 #### [facility]/[address] [place] Machine Gunner: Sherwin Jay M.D.,PhD SEROTYPE 43 (11A) 1.0 Normal [facility] Comment on above: Performed By: #### 5 43, 542, 545, 539 #### [facility] of [facility] [address] , [address] [place] [address] Machine Gunner: Lenin Larson MD #### 36936 #### [facility] [place], [address] [place] [address] Machine Gunner: Sejal Johns MD,PhD,HENRIETTA #### 81985 #### [facility]/[address] [place] Machine Gunner: Sherwin Jay M.D.,PhD SEROTYPE 5 (5) 4.8 Normal [facility] Comment on above: Performed By: #### 5 43, 542, 545, 539 #### [facility] of [address] , [address] [place] [address] Machine Gunner: Lenin Larson MD #### 12063 #### [facility]/[place] [address] Machine Gunner: Sejal Johns MD,PhD,HENRIETTA #### 00625 #### [facility]/[address] [place] Machine Gunner: Sherwin Jay M.D.,PhD SEROTYPE 51 (7F) 13.1 Normal [facility] Comment on above: Performed By: #### 5 43, 542, 545, 539 #### [facility] of [address] , [address] [place] [address] Machine Gunner: Lenin Larson MD #### 50380 #### [facility]/[place] [address] Machine Gunner: Sejal Johns MD,PhD,HENRIETTA #### 69762 #### [facility]/[address] [place] Machine Gunner: Sherwin Jay M.D.,PhD SEROTYPE 54 (15B) 3.0 Normal [facility] Comment on above: Performed By: #### 5 43, 542, 545, 539 #### [facility] of [facility] [address] [facility], [address] [place] [address] Machine Gunner: Lenin Larson MD #### 34615 #### [facility], [address] [place] [address] Machine Gunner: Sejal Johns MD,PhD,HENRIETTA #### 25908 #### [facility]/[address] [place] Machine Gunner: Sherwin Jay M.D.,PhD SEROTYPE 56 (99T) 18.3 Normal [facility] Comment on above: Performed By: #### 5 43, 542, 545, 539 #### [facility] of [address], [address] [place] [address] Machine Gunner: Lenin Larson MD #### 80952 #### [facility], [address] [place] [address] Machine Gunner: Sejal Johns MD,PhD,HENRIETTA #### 77636 #### [facility]/[address] [place] Machine Gunner: Sherwin Jay M.D.,PhD SEROTYPE 57 (53A) 14.1 Normal [facility] Comment on above: Performed By: #### 5 43, 542, 545, 539 #### [facility] [address], [address] [place] [address] Machine Gunner: Lenin Larson MD #### 26772 #### [facility], [address] [place] [id number] Machine Gunner: Sejal Johns MD,PhD,HENRIETTA #### 93235 #### [facility] [address] [place], [place] Machine Gunner: Sherwin Jay M.D.,PhD SEROTYPE 68 (9V) 0.7 Normal [facility] Comment on above: Performed By: #### 5 43, 542, 545, 539 #### [facility] [address] [facility], [address] [place] [address] Machine Gunner: Lenin Larson MD #### 92287 #### [facility], [address] [place] [address] Machine Gunner: Sejal Johns MD,PhD,HENRIETTA #### 90696 #### [facility] [address] [facility] [place], [place] Machine Gunner: Sherwin Jay M.D.,PhD SEROTYPE 70 (33F) <0.3 [...] serotype-specific titers may have less robust responses. [employer] [facility] uses a multi-analyte immunodetection (MAID) method. The method employs the [employer] flow cytometric system which measures multiple [...] analytical performance characteristics have been determined by [employer]. It has not been cleared or approved by FDA. This assay has been validated pursuant to the CLIA regulations and used for clinical purposes. For additional information, please refer to http://education.Runtastic.Quarterly/faq/IUH732 (This link is being provided for informational/ educational purposes only.) Performed By: #### 5 43, 542, 545, 539 #### [facility] [place] [address] Machine Gunner: Lenin Larson MD #### 54111 #### [facility], [address] [place] [address] Machine Gunner: Sejal Johns MD,PhD,HENRIETTA #### 21385 #### [facility]/[address] [place] [place] Machine Gunner: Sherwin Jay M.D.,PhD SEROTYPE 8 (8) <0.3 Normal [facility] Comment on above: Performed By: #### 5 [phone], [phone] [phone], [phone] #### [facility] [place] [address] Machine Gunner: Lenin Larson MD #### [id number] #### [facility]/[place] [id number] Machine Gunner: Sejal Johns MD,PhD,HENRIETTA #### [id number] #### [facility]/[address] [place], [place] Machine Gunner: Sherwin Jay M.D.,PhD SEROTYPE 9 (9N) <0.3 Normal [facility] Comment on above: Performed By: #### 5 [phone], 542, [phone], 539 #### [facility] [address], [address] [place] [address] Machine Gunner: Lenin Larson MD #### [id number] #### [facility], [address] [place] [address] Machine Gunner: Sejal Johns MD,PhD,HENRIETTA #### [id number] #### [facility] [address] [facility] [place] [address] Machine Gunner: Sherwin Jay M.D.,PhD XR FOOT LEFT 3+ [...] planus deformity. Findings compatible with Charcot foot. PRL/dbg Workstation ID: [id number] Dictated by: JULIO GAN on SunAug 13, 2020 3:55:27 PM EDT Transcribed by: OMAYRA VILLAGRAN on SunAug 13, 2020 4:07:30 PM EDT Finalized by: JULIO GAN on SunAug 13, 2020 4:09:56 PM EDT [facility] Comment on above: Order Comment: Injur y/Trauma [...] JOINTS (FOUR JOINTS) HISTORY: Bilateral Charcot foot ORACLE EBS CONSULTANT(S): Senait Ochoa MD COMPARISON: Bilateral foot radiographs [...] was positioned flat on the table. Business Enterprise Officer fluoroscopic images demonstrate severe degenerative changes at [...] was positioned flat on the table. Business Enterprise Officer fluoroscopic images demonstrate moderately severe degenerative changes [...] naviculocuneiform joints using fluoroscopic guidance. Workstation ID: [id number] Dictated by: SENAIT OCHOA on SunJul 16, 2020 8:33:46 AM EDT Transcribed by: SENAIT OCHOA on SunJul 16, 2020 8:33:46 AM EDT Finalized by: SENATI OCHOA on SunJul 16, 2020 8:33:46 AM EDT Normal [facility] 2020 Degenerative changes without acute osseous abnormality. Workstation ID: [id number] [facility] EXAMINATION: XR ANKLE RIGHT 2 VIEWS; XR [...] diffuse soft tissue swelling about the forefoot. [facility] Interface, Rad In [employer] - 2020 12:52 PM EDT EXAMINATION: [...] without acute osseous abnormality. Workstation ID: [id number] [facility] XR ANKLE RIGHT 2 VIEWSon XR ANKLE [...] on SunMarch 09, 2020 12:49:55 PM EDT [facility] Comment on above: Order Comment: STAND ING [...] on SunMarch 09, 2020 12:49:55 PM EDT [facility] Comment on above: Order Comment: Injur y/Trauma or Illness?:Illness/Other How long have you had these symptoms (acute/chronic)?:Chronic Reason for exam?:Chroni B/L Foot pain Lt worse than Rt. Charcot History of cancer?:u Surgeries, chemotherapy, or radiation?:u Type of Exam?:Initial Additional signs and symptoms?:un XR FOOT RIGHT 3+ VIEWS (JOHN DARMahendra)on 2020 XR FOOT RIGHT 3+ VIEWS (STANDARD) [...] on SunMarch 09, 2020 12:49:55 PM EDT [facility] Comment on above: Order Comment: Injur y/Trauma or Illness?:Illness/Other How long have you had these symptoms (acute/chronic)?:Chronic Reason for exam?:Chroni B/L Foot pain Lt worse than Rt. Charcot History of cancer?:u Surgeries, chemotherapy, or radiation?:u Type of Exam?:Initial Additional signs and symptoms?:u XR FOOT LEFT 3+ VIEWS (STAND ANN)on 09-04-2019 Charcot changes of the midfoot are noted. No other acute abnormalities. [facility]/jcw Workstation ID: [id number] [facility] EXAMINATION: XR FOOT LEFT 3+ VIEWS (STANDARD) [...] midfoot. No aggressive appearing erosive bony changes. [facility] Interface, Rad In Jesenia Speechq - 09/04/2019 3:30 PM EST EXAMINATION: [...] midfoot are noted. No other acute abnormalities. [facility]ally Software Development Workstation ID: [id number] [facility] XR FOOT LEFT 3+ VIEWS (STANDARD) EXAMINATION: [...] midfoot are noted. No other acute abnormalities. [facility]/w Workstation ID: [id number] Dictated by: VALERY BETH on SunSep 04, 2019 2:30:50 PM EST Transcribed by: SEBASTIÁN PILLAI IN [employer] on SunSep 04, 2019 3:05:20 PM EST Finalized by: VALERY BETH on SunSep 04, 2019 3:27:26 PM EST Normal [facility] Comment on above: Order Comment: [...] pes planus deformity. 3. No new findings. [facility]/ads Workstation ID: [id number] [facility] EXAMINATION: XR FOOT LEFT 3+ VIEWS (STANDARD) [...] by approximately 5 mm. This is stable. [facility] Sebastián Pillai In [employer] - 03/12/2019 1:23 PM EDT EXAMINATION: XR [...] 3. No new findings. PR[facility]/ads Workstation ID: [id number] [facility] MR COMPARISON IMPORTon 02-06 This order has been auto-finalized and does not contain a result. [facility] XR COMPARISON IMPORTon 02-06 This order has been auto-finalized and does not contain a result. [facility] Vital Signs Date Time Vital Sign Value Performing Clinician Karmai cynthia 11-20-2024 09:24-0500 Body height 177.8 cm Melva Grimaldo DO Work Phone: [facility] [employer] 11-20-2024 09:24-0500 Body mass index (BMI) [Ratio] 38.48 kg/m2 Melva Grimaldo DO Work Phone: [facility] [employer] 11-20-2024 09:24-0500 Body weight 121.66 kg Melva Grimaldo DO Work Phone: [facility] [employer] 09-30-2024 14:30-0500 Blood Pressure Location Mara BEVERLY [facility] 09-30-2024 14:30-0500 Body temperature 98.6 [degF] Mara BEVERLY [facility] 09-30-2024 14:30-0500 Diastolic blood pressure 70 mm[Hg] Mara BEVERLY [facility] 09-30-2024 14:30-0500 Heart rate 78 /min Christopher BROWN [facility] 09-30-2024 14:30-0500 Respiratory rate 18 /min Christopher BROWN [facility] 09-30-2024 14:30-0500 SaO2% (BldA) [Mass fraction] 97 % Christopher BROWN [facility] 09-30-2024 14:30-0500 Systolic blood pressure 139 mm[Hg] Christopher BROWN [facility] 08-19-2024 15:42-0400 Blood Pressure Location Christopher BROWN [facility] 08-19-2024 15:42-0400 Diastolic blood pressure 78 mm[Hg] Christopher BROWN [facility] 08-19-2024 15:42-0400 Heart rate 81 /min Christopher BROWN [facility] 08-19-2024 15:42-0400 Respiratory rate 16 /min Christopher BROWN [facility] 08-19-2024 15:42-0400 SaO2% (BldA) [Mass fraction] 96 % Christopher BROWN [facility] 08-19-2024 15:42-0400 Systolic blood pressure 112 mm[Hg] Christopher BROWN [facility] 08-19-2024 14:29-0400 Blood Pressure Location Christopher BROWN [facility] 08-19-2024 14:29-0400 Body temperature 98.06 [degF] Christangeler SIRIA [facility] 08-19-2024 14:29-0400 Diastolic blood pressure 78 mm[Hg] Pandaer BROWN [facility] 08-19-2024 14:29-0400 Heart rate 81 /min Christopher BROWN [facility] 08-19-2024 14:29-0400 SaO2% (BldA) [Mass fraction] 96 % Mara BEVERLY [facility] 08-19-2024 14:29-0400 Systolic blood pressure 112 mm[Hg] Mara BEVERLY [facility] 07-10-2024 10:09-0400 Body height 177.8 cm Melva Grimaldo Work Phone: [facility] 07-10-2024 10:09-0400 Body mass index (BMI) [Ratio] 39.46 kg/m2 Melva Grimaldo DO Work Phone: [facility] 07-10-2024 10:09-0400 Body weight 124.74 kg Melva Grimaldo DO Work Phone: [facility] 05-12-2024 18:54-0400 Blood Pressure Location Mara BEVERLY [facility] 05-12-2024 18:54-0400 Diastolic blood pressure 80 mm[Hg] Pandaer BROWN [facility] 05-12-2024 18:54-0400 Heart rate 67 /min Mara BEVERLY [facility] 05-12-2024 18:54-0400 Respiratory rate 20 /min Mara BEVERLY [facility] 05-12-2024 18:54-0400 SaO2% (BldA) [Mass fraction] 98 % Albinoangelgreer BEVERLY [facility] 05-12-2024 18:54-0400 Systolic blood pressure 130 mm[Hg] Albinohugh SIRIA [facility] 04-08-2024 13:15-0400 Blood Pressure Location EMELYN POLK [facility] 04-08-2024 13:15-0400 Diastolic blood pressure 76 mm[Hg] EMELYN POLK [facility] 04-08-2024 13:15-0400 Heart rate 65 /min MEXICO POKL [facility] 04-08-2024 13:15-0400 SaO2% (BldA) [Mass fraction] 98 % MEXICO POLK [facility] 04-08-2024 13:15-0400 Systolic blood pressure 138 mm[Hg] EMELYN POLK [facility] 03-24-2024 23:56-0400 Diastolic blood pressure 82 mm[Hg] Yuniel Ninfa [facility] 03-24-2024 23:56-0400 Heart rate 77 /min Yuniel Ninfa [facility] 03-24-2024 23:56-0400 Mean blood pressure 99 mm[Hg] Yuniel Ninfa [facility] 03-24-2024 23:56-0400 Respiratory rate 14 /min Yuniel Ninfa [facility] 03-24-2024 23:56-0400 SaO2% (BldA) [Mass fraction] 96 % Yuniel Ninfa [facility] 03-24-2024 23:56-0400 Systolic blood pressure 132 mm[Hg] Yuniel Ninfa [facility] 03-24-2024 23:24-0400 Heart rate 80 /min Yuniel Ninfa [facility] 03-24-2024 23:24-0400 Respiratory rate 20 /min Yuniel Ninfa [facility] 03-24-2024 23:15-0400 Heart rate 81 /min Yuniel Ninfa [facility] 03-24-2024 23:15-0400 Respiratory rate 20 /min Yuniel Ninfa [facility] 03-24-2024 23:15-0400 SaO2% (BldA) [Mass fraction] 99 % Yuniel Ninfa [facility] 03-24-2024 22:50-0400 Body temperature 98.24 [degF] Yuniel Ninfa [facility] 03-24-2024 22:50-0400 Diastolic blood pressure 75 mm[Hg] Yuniel Ninfa [facility] 03-24-2024 22:50-0400 Heart rate 86 /min Yuniel Ninfa [facility] 03-24-2024 22:50-0400 Respiratory rate 24 /min Yuniel Ninfa [facility] 03-24-2024 22:50-0400 SaO2% (BldA) [Mass fraction] 99 % Yuniel Ninfa [facility] 03-24-2024 22:50-0400 Systolic blood pressure 151 mm[Hg] Yuniel Ninfa [facility] 03-21-2024 14:41-0400 Blood Pressure Location Mara BEVERLY [facility] 03-21-2024 14:41-0400 Body temperature 98.24 [degF] Mara BEVERLY [facility] 03-21-2024 14:41-0400 Diastolic blood pressure 80 mm[Hg] Christopher BROWN [facility] 03-21-2024 14:41-0400 Heart rate 70 /min Pandaer SIRIA [facility] 03-21-2024 14:41-0400 Respiratory rate 16 /min Mara BEVERLY [facility] 03-21-2024 14:41-0400 SaO2% (BldA) [Mass fraction] 97 % Mara BEVERLY [facility] 03-21-2024 14:41-0400 Systolic blood pressure 136 mm[Hg] Christopher BROWN [facility] 03-10-2024 18:42-0400 Diastolic blood pressure 86 mm[Hg] Christopher BROWN [facility] 03-10-2024 18:42-0400 Mean blood pressure 103 mm[Hg] Christopher BROWN [facility] 03-10-2024 18:42-0400 Systolic blood pressure 138 mm[Hg] Christopher BROWN [facility] 03-10-2024 18:07-0400 Blood Pressure Location Christhugh BEVERLY [facility] 03-10-2024 18:07-0400 Body temperature 98.24 [degF] Christopher BROWN [facility] 03-10-2024 18:07-0400 Diastolic blood pressure 90 mm[Hg] Christopher BROWN [facility] 03-10-2024 18:07-0400 Heart rate 77 /min Christopher BROWN [facility] 03-10-2024 18:07-0400 Respiratory rate 20 /min Christopher BROWN [facility] 03-10-2024 18:07-0400 SaO2% (BldA) [Mass fraction] 98 % Christopher BROWN [facility] 03-10-2024 18:07-0400 Systolic blood pressure 140 mm[Hg] Christopher BROWN [facility] [place] 12-10-2023 18:36-0500 Blood Pressure Location Christopher BROWN [facility] [place] 12-10-2023 18:36-0500 Diastolic blood pressure 80 mm[Hg] Christopher BROWN [facility] [place] 12-10-2023 18:36-0500 Heart rate 77 /min Christopher BROWN [facility] 12-10-2023 18:36-0500 Respiratory rate 16 /min Christopher BROWN [facility] [place] 12-10-2023 18:36-0500 SaO2% (BldA) [Mass fraction] 96 % Christopher BROWN [facility] 12-10-2023 18:36-0500 Systolic blood pressure 132 mm[Hg] Mara BEVERLY [facility] [place] 10-17-2023 14:46-0500 Blood Pressure Location Mara BEVERLY [facility] 10-17-2023 14:46-0500 Body temperature 97.88 [degF] Mara BEVERLY [facility] 10-17-2023 14:46-0500 Diastolic blood pressure 66 mm[Hg] Mara BEVERLY [facility] 10-17-2023 14:46-0500 Heart rate 65 /min Mara BEVERLY [facility] 10-17-2023 14:46-0500 SaO2% (BldA) [Mass fraction] 97 % Mara BEVERLY [facility] 10-17-2023 14:46-0500 Systolic blood pressure 128 mm[Hg] Mara BEVERLY [facility] 05-17-2023 14:00-0400 Hourly Rounding Melva Grimaldo [facility] 05-17-2023 12:00-0400 Hourly Rounding Melva Grimaldo [facility] 05-17-2023 12:00-0400 Promise to Return Melva Grimaldo [facility] 05-17-2023 11:57-0400 Hourly Rounding Melva Grimaldo [facility] 05-17-2023 11:57-0400 Promise to Return Melva Grimaldo [facility] 05-17-2023 11:37-0400 Heart rate 69 /min Melva Grimaldo [facility] 05-17-2023 11:37-0400 SaO2% (BldA) [Mass fraction] 97 % Melva Grimaldo [facility] 05-17-2023 11:37-0400 Diastolic blood pressure 66 mm[Hg] Melva Grimaldo [facility] 05-17-2023 11:37-0400 Mean blood pressure 83 mm[Hg] Melva Grimaldo [facility] 05-17-2023 11:37-0400 Systolic blood pressure 117 mm[Hg] Melva Grimaldo [facility] 05-17-2023 11:37-0400 Body temperature 98.06 [degF] Melva Grimaldo [facility] 05-17-2023 10:06-0400 Promise to Return Melva Grimaldo [facility] 05-17-2023 08:47-0400 Heart rate 70 /min Melva Grimaldo [facility] 05-17-2023 08:47-0400 SaO2% (BldA) [Mass fraction] 96 % Melva Grimaldo [facility] 05-17-2023 08:47-0400 Diastolic blood pressure 66 mm[Hg] Melva Grimaldo [facility] 05-17-2023 08:47-0400 Mean blood pressure 79 mm[Hg] Melva Jc [facility] 05-17-2023 08:47-0400 Systolic blood pressure 105 mm[Hg] Melva Jc [facility] 05-17-2023 08:47-0400 Body temperature 97.7 [degF] Melva Jc [facility] 05-17-2023 08:11-0400 Heart rate 74 /min Melva Jc [facility] 05-17-2023 08:11-0400 SaO2% (BldA) [Mass fraction] 97 % Melva Jc [facility] 05-17-2023 04:30-0400 Blood Pressure Location Melva Jc [facility] 05-17-2023 04:30-0400 Body temperature 98.06 [degF] Melva Jc [facility] 05-17-2023 04:30-0400 Diastolic blood pressure 74 mm[Hg] Melva Grimaldo [facility] 05-17-2023 04:30-0400 Mean blood pressure 93 mm[Hg] Melva Grimaldo [facility] 05-17-2023 04:30-0400 Respiratory rate 18 /min Melva Grimaldo [facility] 05-17-2023 04:30-0400 Systolic blood pressure 130 mm[Hg] Melva Grimaldo [facility] 05-17-2023 02:18-0400 Body temperature 97.52 [degF] Melva Grimaldo [facility] 05-17-2023 02:18-0400 Mean blood pressure 85 mm[Hg] Melva Grimaldo [facility] 05-16-2023 23:38-0400 Body temperature 97.34 [degF] Melva Grimaldo [facility] 05-16-2023 23:38-0400 Mean blood pressure 95 mm[Hg] Melva Grimaldo [facility] 05-16-2023 23:38-0400 Respiratory rate 17 /min Melva Grimaldo [facility] 05-16-2023 20:25-0400 Respiratory rate 16 /min Melva Grimaldo [facility] 05-16-2023 20:08-0400 Respiratory rate 16 /min Melva Grimaldo [facility] 05-16-2023 16:52-0400 Body temperature 97.34 [degF] Melva Grimaldo [facility] 05-16-2023 16:52-0400 Respiratory rate 12 /min Melva Grimaldo [facility] 05-16-2023 16:40-0400 Respiratory rate 16 /min Melva Grimaldo [facility] 05-16-2023 16:27-0400 Body temperature 97.34 [degF] Melva Grimaldo [facility] 05-16-2023 12:15-0400 Blood Pressure Location Melva Grimaldo [facility] 05-16-2023 12:12-0400 Heart rate 70 /min Melva Grimaldo [facility] 03-23-2023 10:32-0400 Blood Pressure Location Mara BEVERLY [facility] 03-23-2023 10:32-0400 Diastolic blood pressure 74 mm[Hg] Mara BEVERLY [facility] 03-23-2023 10:32-0400 Heart rate 76 /min Mara BEVERLY [facility] 03-23-2023 10:32-0400 Respiratory rate 20 /min Mara BEVERLY [facility] 03-23-2023 10:32-0400 SaO2% (BldA) [Mass fraction] 98 % Mara BEVERLY [facility] 03-23-2023 10:32-0400 Systolic blood pressure 132 mm[Hg] Mraa BEVERLY [facility] 01-19-2023 17:36-0400 Diastolic blood pressure 96 mm[Hg] Robyn David [facility] 01-19-2023 17:36-0400 Mean blood pressure 113 mm[Hg] Robyn David [facility] 01-19-2023 17:36-0400 Systolic blood pressure 148 mm[Hg] Robyn David [facility] 01-19-2023 16:43-0400 Blood Pressure Location Robyn David [facility] 01-19-2023 16:43-0400 Diastolic blood pressure 100 mm[Hg] Robyn David [facility] 01-19-2023 16:43-0400 Heart rate 87 /min Robyn David [facility] 01-19-2023 16:43-0400 Respiratory rate 20 /min Robyn David [facility] 01-19-2023 16:43-0400 SaO2% (BldA) [Mass fraction] 97 % Robyn David [facility] 01-19-2023 16:43-0400 Systolic blood pressure 150 mm[Hg] Robyn David [facility] 08-22-2022 09:41-0400 Diastolic blood pressure 66 mm[Hg] Nathaly STANG [facility] 08-22-2022 09:41-0400 Mean blood pressure 92 mm[Hg] Nathaly STANG [facility] 08-22-2022 09:41-0400 Systolic blood pressure 145 mm[Hg] Nathaly STANG [facility] 08-22-2022 09:38-0400 Blood Pressure Location Nathaly TURCIOS [facility] 08-22-2022 09:38-0400 Diastolic blood pressure 71 mm[Hg] Nathaly TURCIOS [facility] 08-22-2022 09:38-0400 Heart rate 69 /min Nathaly TURCIOS [facility] 08-22-2022 09:38-0400 Respiratory rate 18 /min Nathaly TURCIOS [facility] 08-22-2022 09:38-0400 SaO2% (BldA) [Mass fraction] 96 % Nathaly TURCIOS [facility] 08-22-2022 09:38-0400 Systolic blood pressure 147 mm[Hg] Nathaly TURCIOS [facility] 08-12-2022 12:38-0400 Blood Pressure Location Kim DASHAWN [facility] 08-12-2022 12:38-0400 Body temperature 98.42 [degF] Kim TAMEZ [facility] 08-12-2022 12:38-0400 Diastolic blood pressure 86 mm[Hg] Kim TAMEZ [facility] 08-12-2022 12:38-0400 Heart rate 65 /min Kim TAMEZ [facility] 08-12-2022 12:38-0400 SaO2% (BldA) [Mass fraction] 97 % Kim TAMEZ [facility] 08-12-2022 12:38-0400 Systolic blood pressure 134 mm[Hg] Kim TAMEZ [facility] 06-28-2022 09:21-0400 Diastolic blood pressure 77 mm[Hg] Nathalyyon LOPEZG [facility] 06-28-2022 09:21-0400 Mean blood pressure 107 mm[Hg] Nathalyyon LOPEZG [facility] 06-28-2022 09:21-0400 Systolic blood pressure 168 mm[Hg] Nathalyyon LOPEZG [facility] 06-28-2022 09:10-0400 Blood Pressure Location Nathalyyon TURCIOS [facility] 06-28-2022 09:10-0400 Diastolic blood pressure 76 mm[Hg] Nathalyyon LOPEZG [facility] 06-28-2022 09:10-0400 Heart rate 60 /min Nathalyyon TURCIOS [facility] 06-28-2022 09:10-0400 Respiratory rate 18 /min Nathalyyon TURCIOS [facility] 06-28-2022 09:10-0400 SaO2% (BldA) [Mass fraction] 100 % Nathalyyon TURCIOS [facility] 06-28-2022 09:10-0400 Systolic blood pressure 172 mm[Hg] Nathalyyon LOPEZG [facility] 05-18-2022 15:40-0400 Diastolic blood pressure 75 mm[Hg] Joe Brarchichi [facility] 05-18-2022 15:40-0400 Mean blood pressure 101 mm[Hg] Joe Gray [facility] 05-18-2022 15:40-0400 Systolic blood pressure 154 mm[Hg] Joe Gray [facility] 05-18-2022 15:30-0400 Blood Pressure Location Joe Gray [facility] 05-18-2022 15:30-0400 Diastolic blood pressure 75 mm[Hg] Joe Gray [facility] 05-18-2022 15:30-0400 Heart rate 81 /min Joe Gray [facility] 05-18-2022 15:30-0400 Respiratory rate 18 /min Joe Gray [facility] 05-18-2022 15:30-0400 SaO2% (BldA) [Mass fraction] 100 % Joe Gray [facility] 05-18-2022 15:30-0400 Systolic blood pressure 173 mm[Hg] Joe Gray [facility] 04-25-2022 18:29-0400 Diastolic blood pressure 62 mm[Hg] Christopher BROWN [facility] [place] 04-25-2022 18:29-0400 Mean blood pressure 87 mm[Hg] Christopher BROWN [facility] [place] 04-25-2022 18:29-0400 Systolic blood pressure 136 mm[Hg] Christopher BROWN [facility] [place] 04-25-2022 18:12-0400 Blood Pressure Location Christopher BROWN [facility] [place] 04-25-2022 18:12-0400 Body temperature 98.6 [degF] Christopher BROWN [facility] [place] 04-25-2022 18:12-0400 Diastolic blood pressure 90 mm[Hg] Christopher BROWN [facility] [place] 04-25-2022 18:12-0400 Heart rate 76 /min Christopher BROWN [facility] [place] 04-25-2022 18:12-0400 Respiratory rate 18 /min Christopher BROWN [facility] [place] 04-25-2022 18:12-0400 SaO2% (BldA) [Mass fraction] 96 % Christopher BROWN [facility] [place] 04-25-2022 18:12-0400 Systolic blood pressure 156 mm[Hg] Christopher BROWN [facility] [place] 03-14-2022 10:20-0400 Blood Pressure Location Christopher BROWN [facility] [place] 03-14-2022 10:20-0400 Diastolic blood pressure 80 mm[Hg] Christopher BROWN [facility] [place] 03-14-2022 10:20-0400 Heart rate 74 /min Christopher BROWN [facility] [place] 03-14-2022 10:20-0400 Respiratory rate 20 /min Christopher BROWN [facility] [place] 03-14-2022 10:20-0400 SaO2% (BldA) [Mass fraction] 95 % Christopher BROWN [facility] [place] 03-14-2022 10:20-0400 Systolic blood pressure 130 mm[Hg] Mara BEVERLY [facility] [place] 07-15-2020 13:39-0400 BP Diastolic 61 mm[Hg] Senait [facility] 07-15-2020 13:39-0400 BP Systolic 126 mm[Hg] Senait [place] [facility] 07-15-2020 13:39-0400 Pulse (Heart Rate) 67 /min Senait Vikingad [facility] 07-15-2020 13:39-0400 Pulse Oximetry 96 % Senait Vikingad [facility] 07-15-2020 13:39-0400 Respiratory Rate 16 /min [facility] 07-13-2020 10:11-0400 BP Diastolic 75 mm[Hg] Senait [place] [facility] 07-13-2020 10:11-0400 BP Systolic 140 mm[Hg] Senait [place] [facility] 07-13-2020 10:00-0400 BMI (Body Mass Index) 39.89 kg/m2 Senait [place] [facility] 07-13-2020 10:00-0400 Body weight 126.1 kg Senait [place] [facility] 07-13-2020 10:00-0400 Height 177.8 cm Senait [facility]ad [facility] 07-13-2020 10:00-0400 Pulse (Heart Rate) 67 /min Senait [place] [facility] 06-14-2020 10:39-0400 BMI (Body Mass Index) 39.31 kg/m2 Carlos Exten [facility] 06-14-2020 10:39-0400 Body weight 124.29 kg Carlos Exten [facility] 06-14-2020 10:39-0400 BP Diastolic 80 mm[Hg] Carlos Exten [facility] 06-14-2020 10:39-0400 BP Systolic 114 mm[Hg] Carlos Exten [facility] 06-14-2020 10:39-0400 Height 177.8 cm Carlos Exten [facility] 06-14-2020 10:39-0400 Pulse (Heart Rate) 73 /min Carlos Carter [facility] 06-02-2020 14:37-0400 BMI (Body Mass Index) 39.39 kg/m2 Javier Fischer [facility] 06-02-2020 14:37-0400 Body weight 124.51 kg Javier Fischer [facility] 06-02-2020 14:37-0400 BP Diastolic 82 mm[Hg] Javier Fischer [facility] 06-02-2020 14:37-0400 BP Systolic 146 mm[Hg] Javier Fischer [facility] 06-02-2020 14:37-0400 Height 177.8 cm Javier Fischer [facility] 06-02-2020 14:37-0400 Pulse (Heart Rate) 71 /min Javier Fischer [facility] 06-02-2020 14:37-0400 Pulse Oximetry 96 % Javier Fischer [facility] 04-20-2020 13:51-0400 BMI (Body Mass Index) 38.31 kg/m2 [facility] 04-20-2020 13:51-0400 Body weight 121.11 kg [facility] 04-20-2020 13:51-0400 BP Diastolic 85 mm[Hg] Vogel [facility] 04-20-2020 13:51-0400 BP Systolic 151 mm[Hg] [facility] 04-20-2020 13:51-0400 Height 177.8 cm [facility] 04-20-2020 13:51-0400 Pulse (Heart Rate) 61 /min [facility] 04-20-2020 13:51-0400 Pulse Oximetry 99 % Vogel [facility] 2020 14:03-0400 BMI (Body Mass Index) 39.67 kg/m2 Vogel [facility] 2020 14:03-0400 Body weight 125.42 kg [facility] 2020 14:03-0400 BP Diastolic 78 mm[Hg] Vogel [facility] 2020 14:03-0400 BP Systolic 144 mm[Hg] Vogel [facility] 2020 14:03-0400 Height 177.8 cm Jaspreet [facility] 2020 14:03-0400 Pulse (Heart Rate) 72 /min [facility] 14:03-0400 Pulse Oximetry 99 % Vogel [facility] 2020 10:32-0400 BMI (Body Mass Index) 40.89 kg/m2 Carlos Carter [facility] 2020 10:32-0400 Body weight 129.28 kg Carlos Carter [facility] 2020 10:32-0400 BP Diastolic 70 mm[Hg] Carlos Carter [facility] 2020 10:32-0400 BP Systolic 151 mm[Hg] Carlos Carter [facility] 2020 10:32-0400 Height 177.8 cm Carlos [facility] 2020 10:32-0400 Pulse (Heart Rate) 69 /min Carlosarabella Carter [facility] 09-04-2019 08:31-0500 BMI (Body Mass Index) 40.89 kg/m2 Carlos Carter [facility] 09-04-2019 08:31-0500 Body weight 129.28 kg Carlos Carter [facility] 09-04-2019 08:31-0500 BP Diastolic 84 mm[Hg] Carlos Carter [facility] 09-04-2019 08:31-0500 BP Systolic 147 mm[Hg] Carlos Carter [facility] 09-04-2019 08:31-0500 Height 177.8 cm Carlos [facility] 09-04-2019 08:31-0500 Pulse (Heart Rate) 59 /min Carlos Carter [facility] 03-12-2019 10:07-0400 BMI (Body Mass Index) 40.89 kg/m2 Carlos [facility] 03-12-2019 10:07-0400 BP Diastolic 87 mm[Hg] Carlos Carter [facility] 03-12-2019 10:07-0400 BP Systolic 146 mm[Hg] Carlos Carter [facility] 03-12-2019 10:07-0400 Height 177.8 cm Carlos [facility] 03-12-2019 10:07-0400 Pulse (Heart Rate) 79 /min Carlos Carter [facility] 03-12-2019 10:07-0400 Weight 129.28 kg Carlos Carter [facility] 02-05-2019 14:07-0400 BMI (Body Mass Index) 40.89 kg/m2 Carlos Carter [facility] 02-05-2019 [id number] BP Diastolic 70 mm[Hg] Carlos Carter [facility] 02-05-2019 14:07-0400 BP Systolic 120 mm[Hg] Carlos Carter [facility] 02-05-2019 [id number] Height 177.8 cm Carlos Carter [facility] 02-05-2019 14:07-0400 Pulse (Heart Rate) 91 /min Carlos Carter [facility] 02-05-2019 14:07-0400 Weight 129.28 kg Carlos Carter [facility] Encounters Encounter Date Encounter Type Care Provider Facility Start: 08-20-2025 ambulatory Mara BEVERLY [facility] Start: 03-05-2025 ambulatory Mara BEVERLY [facility]il [facility]y:[facility] Start: 11-20-2024 End: 11-20-2024 Bamboo flowsheet Melva Grimaldo DO Work Phone: [facility] Start: 11-20-2024 End: 11-20-2024 Bamboo flowsheet Melva Grimaldo DO Work Phone: [facility] Start: 11-20-2024 End: 11-20-2024 Patient encounter procedure Melva Grimaldo DO Work Phone: [facility] Comment on above: Acute pain of right knee (Primary Dx) Start: 11-20-2024 End: 11-20-2024 ambulatory MELVA GRIMALDO Not Available Start: 09-30-2024 End: 09-30-2024 ambulatory Mara BEVERLY [facility] Start: 09-30-2024 End: 09-30-2024 Patient encounter procedure Mara BEVERLY [facility] Start: 09-26-2024 End: 10-29-2024 ambulatory Mara BEVERLY Facility:[id number] Start: 09-02-2024 End: 09-02-2024 ambulatory Julio Johnson Facility:[facility] Start: 09-02-2024 End: 09-02-2024 Departed Referred Julio Johnson DPM Work Phone: [facility] Start: 08-19-2024 End: 08-19-2024 ambulatory Pandagreer SIRIA Facility:[facility] Start: 08-19-2024 End: 08-19-2024 Patient encounter procedure Mara BEVERLY [facility] Start: 08-19-2024 End: 08-19-2024 Well adult monitoring check done Mara BEVERLY [facility] Start: 07-29-2024 End: 07-29-2024 Bamboo flowsheet Haily Shepard MD Work Phone: [facility] Start: 07-29-2024 End: 07-29-2024 Bamboo flowsheet Haily Shepard MD Work Phone: [facility] Start: 07-29-2024 End: 07-29-2024 ambulatory HAILY SHEPARD Not Available Start: 07-14-2024 End: 09-19-2024 Admission to same day surgery center Melva Grimaldo [facility] Start: 07-14-2024 End: 09-19-2024 ambulatory Melva Grimaldo Facility:[facility] Start: 07-10-2024 End: 07-10-2024 Patient encounter procedure Melva Grimaldo DO Work Phone: [facility] Comment on above: Artificial knee join t present, left (Primary Dx); Acute pain of right knee Start: 07-10-2024 End: 07-10-2024 ambulatory MELVA GRIMALDO Not Available Start: 07-10-2024 End: 07-10-2024 ambulatory MELVA GRIMALDO Not Available Start: 06-19-2024 End: 11-03-2024 ambulatory Pandagreer SIRIA Facility:[facility] Start: 06-19-2024 End: 10-27-2024 Recurring Pandagreer BEVERLY [facility] Start: 05-21-2024 ambulatory Mara BEVERLY Facil ity:[facility] Start: 05-14-2024 End: 05-14-2024 [facility] Facility:[facility] Start: 05-14-2024 End: 05-14-2024 Patient encounter procedure Mara BEVERLY [facility] Start: 05-13-2024 End: 05-13-2024 ambulatory MELVA GRIMALDO Not Available Start: 05-12-2024 End: 05-12-2024 Lab Drop off Mara BEVERLY [facility] Start: 05-12-2024 End: 05-12-2024 ambulatory Mara BEVERLY Facility:[facility] Start: 05-12-2024 End: 05-12-2024 Patient encounter procedure Mara BEVERLY [facility] [place] Start: 04-14-2024 End: 04-14-2024 ambulatory Mara BEVERLY Facility:[facility] Start: 04-14-2024 End: 04-14-2024 Patient encounter procedure Mara BEVERLY [facility] Start: 04-08-2024 End: 04-08-2024 ambulatory EMELYN POLK Facility:[facility] Start: 04-08-2024 End: 04-08-2024 Patient encounter procedure EMELYN POLK [facility] Start: 03-24-2024 End: 03-25-2024 Emergency department patient visit Yuniel Ocasio [facility] Start: 03-21-2024 End: 03-21-2024 ambulatory [facility] Facility:[facility] Start: 03-21-2024 End: 03-21-2024 Patient encounter procedure Mara BEVERLY [facility] [place] Start: 03-10-2024 End: 03-10-2024 ambulatory Albinohugh BEVERLY Facility:[facility] Start: 03-10-2024 End: 03-10-2024 Patient encounter procedure Mara BEVERLY [facility] [place] Start: 12-10-2023 End: 12-10-2023 [facility]ulatory [facility]: [place] Start: 12-10-2023 End: 12-10-2023 Patient encounter procedure Mara BEVERLY [facility] [place] Start: 10-17-2023 End: 10-17-2023 ambulatory Pandagreer BEVERLY Facility:[facility] Start: 10-17-2023 End: 10-17-2023 Patient encounter procedure Mara BEVERLY [facility] Start: 05-16-2023 End: 05-17-2023 Admission to same day surgery center Melva Grimaldo [facility] Start: 03-26-2023 End: 03-26-2023 Patient encounter procedure Mara BEVERLY [facility] Start: 03-23-2023 End: 03-23-2023 Encounter for general adult medical examination with abnormal findings Mara BEVERLY [facility] Start: 03-23-2023 End: 03-23-2023 Patient encounter procedure Mara BEVERLY [facility] [place] Start: 01-19-2023 End: 01-19-2023 Patient encounter procedure Robyn Vinnie Hernandez [facility] [place] Start: 08-29-2022 End: 08-29-2022 Encounter for general adult medical examination with abnormal findings Mara BEVERLY [facility] Start: 08-29-2022 End: 08-29-2022 Patient encounter procedure Mara BEVERLY [facility] Start: 08-22-2022 End: 08-22-2022 Patient encounter procedure Nathaly TURCIOS [facility] Start: 08-12-2022 End: 08-12-2022 Patient encounter procedure Kim TAMEZ [facility] Start: 08-02-2022 End: 08-03-2022 [facility] Start: 07-20-2022 End: 07-20-2022 Patient encounter procedure Nathaly TURCIOS [facility] Start: 06-28-2022 End: 06-28-2022 Patient encounter procedure Nathaly TURCIOS [facility] Start: 05-18-2022 End: 05-18-2022 Patient encounter procedure Joe Gray [facility] Start: 04-25-2022 End: 04-25-2022 Patient encounter procedure Mara BEVERLY [facility] [place] Start: 03-14-2022 End: 03-14-2022 Patient encounter procedure Mara BEVERLY [facility] [place] Start: 09-19-2021 End: 02-06-2022 Recurring SALOME EDMONDS [facility] Start: 12-23-2020 End: 12-23-2020 Orders Only Shaylee Masue Theodore Work Phone: [facility] Start: 08-13-2020 End: 08-14-2020 Patient encounter procedure CARLOS CARTER [facility] Ambulatory Start: 07-15-2020 End: 07-15-2020 Patient encounter procedure CARLOS GERBER [facility] Start: 07-15-2020 End: 07-15-2020 Subsequent hospital visit by physician Senait Ochoa Work Phone: [facility] Interventional Radiology Comment on above: Charcot's joint of l eft foot; Charcot's joint of left foot Start: 07-13-2020 End: 07-17-2020 Patient encounter procedure CARLOS CARTER [facility] Ambulatory Start: 07-13-2020 End: 07-18-2020 Office outpatient new 45 minutes Carlos Carter Work Phone: [facility] Comment on above: Charcot's joint of l eft foot (Primary Dx); Neuropathy, idiopathic; Pain Start: 06-14-2020 End: 06-14-2020 Patient encounter procedure CARLOS CARTER [facility] Ambulatory Start: 06-14-2020 End: 06-14-2020 Office outpatient visit 15 minutes Carlos Carter Work Phone: [facility] Comment on above: Charcot's joint of l eft foot (Primary Dx); Neuropathy, idiopathic Start: 06-02-2020 End: 06-02-2020 Patient encounter procedure JAVIER FONGYKHOCHRISTOPH [facility] Start: 06-02-2020 End: 06-02-2020 Office outpatient visit 25 minutes Javier Fischer Work Phone: [facility] Comment on above: History functional e ndoscopic sinus surgery (FESS) with revision (Primary Dx); Sinus pressure; Chronic allergic rhinitis; Fatigue, unspecified type Start: 04-20-2020 End: 04-20-2020 Patient encounter procedure JASPREET CONTI [facility] Start: 04-20-2020 End: 04-20-2020 Office outpatient visit 15 minutes Jaspreet Conti Work Phone: [facility] Comment on above: Recurrent sinusitis (Primary Dx); Chronic rhinitis Start: 2020 End: 2020 Patient encounter procedure MARA BEVERLY [facility] Start: 2020 End: 2020 Office outpatient new 30 minutes Mara Beverly Work Phone: [facility] Comment on above: Chronic rhinitis (Pr imary Dx); Acute recurrent frontal sinusitis; Fatigue, unspecified type Start: 2020 End: 03-10-2020 Patient encounter procedure CARLOSARABELLA FOREMANE EMMA [facility] Start: 2020 End: 2020 Subsequent hospital visit by physician Carlos Carter Work Phone: [facility] Comment on above: Pain Start: 2020 End: 2020 Office outpatient visit 15 minutes Carlos Carter Work Phone: [facility] Comment on above: Charcot's joint of l eft foot (Primary Dx); Neuropathy, idiopathic Start: 01-13-2020 Patient encounter procedure JAVIER FONGYKHODKBonifacio [facility] Start: 09-04-2019 End: 09-05-2019 Patient encounter procedure CARLOS CARTER [facility] Start: 09-04-2019 End: 09-04-2019 Subsequent hospital visit by physician Carlos Carter Work Phone: [facility] Comment on above: Charcot's joint of l eft foot Start: 09-04-2019 End: 09-04-2019 Office outpatient visit 15 minutes Carlos Carter Work Phone: [facility] Comment on above: Charcot's joint of l eft foot (Primary Dx); Neuropathy, idiopathic Start: 03-12-2019 End: 03-12-2019 Patient encounter procedure Carlos Carter Work Phone: [facility] Comment on above: Pain Start: 03-12-2019 End: 03-12-2019 Office outpatient visit 15 minutes Carlos Carter Work Phone: [facility] Comment on above: Charcot's joint of l eft foot (Primary Dx) Start: 02-06-2019 End: 02-07-2019 Patient encounter procedure PROVIDER NOT IN [facility] Start: 02-06-2019 End: 02-06-2019 Patient encounter procedure Provider Not In [facility] Radiology External Films Comment on above: Arrived Start: 02-05-2019 End: 02-05-2019 Subsequent hospital visit by physician Carlos Zabrina Emma Work Phone: [facility] Comment on above: Pain Start: 02-05-2019 End: 02-05-2019 Office outpatient new 30 minutes Carlos Carter Work Phone: [facility] Comment on above: Charcot's joint of l eft foot (Primary Dx); Neuropathy, idiopathic Procedures Date Procedure Procedure Detail Performing Clinician Start: 11-20-2024 Arthrocentesis aspir &/inj major jt/bursa w/o us Melva Grimaldo DO Work Phone: Start: 07-29-2024 End: 07-29-2024 [facility] medical xm&satnam acosta new pt 1/> vst Type 2 diabetes mellitus without complication, without long-term current use of insulin (CMS/[facility]) Haily Shepard MD Work Phone: Comment on above: Type 2 diabetes anisa itus without complication, without long- term current use of insulin (CMS/HCC) (Primary Dx); Pseudophakia Start: 07-10-2024 Radiologic examinati on knee 3 views Melva Grimaldo DO Work Phone: Start: 07-10-2024 Radiologic examinati on knee 3 views Melva Grimaldo Work Phone: Start: 05-16-2023 Total knee replacement Melva Grimaldo Start: 04-02-2023 Arthroplasty of knee Mi chanel Grimaldo Start: 08-18-2021 Colonoscopy SALOME BLACKBURN I Start: 01-10-2021 Structure of left fo ot (body structure) SALOME EDMONDS Comment on above: reconstruction surge ry of left foot per dr johnson @ [facility]. Start: 08-18-2020 Radiofrequency dener vation of [...] of sacroil iac joint using fluoroscopic guidance [employer] KILPATRICKTI Comment on above: bilat SIJI- 50% reli ef Start: 09-04-2019 X-ray of left foot Rashad y Zabrina Exten Work Phone: Start: 08-27-2019 Sacroiliac joint injection 7 [employer] GREY Comment on above: B/L 80% relief. Start: 05-28-2019 Injection of sacroil iac joint using fluoroscopic guidance [employer] Satellier Comment on above: B/L 75% relief Start: 03-12-2019 X-ray of left foot Rashad y Zabrina Exten Work Phone: Start: 02-06-2019 Radiographic imaging procedure External Transcribed Start: 02-06-2019 Magnetic resonance imaging External Transcribed Start: 02-05-2019 Injection of sacroil iac joint using fluoroscopic guidance [employer] Satellier Comment on above: 90% relief since pro cedure. Start: 11-13-2018 Left Transforaminal Epidural Steroid Injection 10 [facility] Comment on above: left L5+S1 approx 50 % relief X 2 weeks Start: 09-25-2018 Epidural injection o f lumbar spine using fluoroscopic guidance [employer] [facility] Comment on above: L3-L4 -25% relief si nce injection x 2 weeks Start: 07-17-2018 Transforaminal Epidu ral Steroid Injection 12 [facility] Comment on above: Left -70% relief x o ne month. Pt. reports 40% relief today. Start: 06-12-2018 epidural steroid injection 13 [facility] Comment on above: L5-S1 60% relief for 3 weeks Start: 04-10-2018 transforaminal epidu ral steroid injection 14 [facility] Comment on above: left L5+S1 80% relie f to present Start: 04-01-2018 Cataract extraction and insertion of intraocular lens AMAR GREY Comment on above: right eye Start: 04-18-2017 transforaminal stero id injection 16 AMVICENTA EDMONDS Comment on above: L5-S1 left side 80% relief for 1 month. Start: 07-11-2016 EVLT LGSV SALOME KILPATRICKEdgar I Start: 03-29-2016 ABHINAV lumbosacral 17 AMVICENTA EDMONDS Comment on above: L5-S1 80% relief Start: 12-22-2015 transforaminal stero id injection 18 AMVICENTA KILPATRICKTI Comment on above: Lt L5-S1- 80% relief for 6 weeks Start: 09-15-2015 transforaminal stero id injection 19 AMVICENTA EDMONDS Comment on above: Lt L5-S1-80% relief for [...] f lumbar spine using fluoroscopic guidance SALOME GREY Comment on above: L5-S1 60% relief Start: 11-19-2013 Epidural injection o f lumbar spine using fluoroscopic guidance AMVICENTA KILPATRICKTI Comment on above: L5-S1 30% relief Start: 09-24-2013 Epidural injection o f lumbar spine using fluoroscopic guidance AMAR GREY Comment on above: L5-S1 65% relief Start: 10-22-2011 scraping of the elbow-right AMAR GREY Start: 10-22-2008 Hysterectomy AMVICENTA GULAT I Start: 10-22-1964 Tonsillectomy AMAR GULA TI Congestion of nasal sinus (disorder) AMAR GREY Comment on above: 02/27 Hysterectomy AMAR GREY Comment on above: 2008 sinus surgeries 34 AMVICENTA KILPATRICK TI Comment on above: x2; 2007, 2011 Swelling of first metatarsophalangeal joint of hallux (disorder) AMAR GREY Comment on above: removal Transforaminal epidu ral steroid injection 35 AMAR GREY Comment on above: L5-S1- 75% relief si nce Plan of Treatment Date Care Activity Detail Author Start: 02-17-2027 Tetanus vaccination Tetanus: Every 1 0yrs [facility] Start: 07-30-2025 End: 07-30-2025 Patient encounter procedure 07/30/2025 11:00 AM EDT Office Visit [facility] [address] [place] [address] Haily Shepard MD [address] [place] [address] [facility] Start: 05-14-2025 End: 05-14-2025 Patient encounter procedure 05/14/2025 9:00 AM EDT Office Visit [facility] [address] [place] [id number] Melva Grimaldo, DO [address] [place] [address] [facility] Start: 11-20-2024 End: 11-20-2024 Patient encounter procedure 11/20/2024 9:30 AM EST Office Visit [facility] [address] [place] [id number] Melva Grimaldo, DO [address] [place] [address] Acute pain of right knee (Primary Dx) [facility] Comment on above: Acute pain of right knee (Primary Dx) Start: 07-29-2024 End: 07-29-2024 Patient encounter procedure [facility] Comment on above: Arrived Start: 06-22-2024 Influenza vaccination Influenza Vacc ine (#1) [facility] Start: 2024 Pneumococcal Vaccine : 65+ Years (1 of 1 - PCV) Pneumococcal Vaccine: 65+ Years (1 of 1 - PCV) [facility] Start: 06-22-2020 Influenza vaccinatio n given [facility] Start: 06-14-2020 End: 06-14-2020 Office Visit 06/14/2020 Office Visit Orthopedic Surgery Exten, Carlos Gerber MD [address] [facility] [place] [address] [phone] [facility] Start: 06-02-2020 End: 06-02-2020 Office Visit 06/02/2020 Office Visit Otolaryngology Javier Fischer MD [address] [place] [address] [phone] [facility] Start: 04-20-2020 End: 04-20-2020 Office Visit 04/20/2020 Office Visit Otolaryngology Floral [employer] Teacher, Jaspreet Diaz CNP [address] [place] [address] [phone] [facility] Start: 09-04-2019 End: 09-04-2019 Office Visit 09/04/2019 Office Visit Orthopedic Surgery Exten, Carlos Gerber MD [address] [place] [address] [phone] [facility] Start: 06-22-2019 Influenza vaccinatio n given [facility] Start: 06-22-2018 Influenza vaccinatio n given SEQUENTIAL INFLUENZA VACCINE (#1) [facility] Start: 2009 Administration of he rpes zoster vaccine Zoster Vaccines (1 of 2) [facility] Start: 2009 Screening for malign ant neoplasm of colon [facility] Start: 1999 Screening for malign ant neoplasm of breast Mammogram [facility] Start: 1989 Screening for malign ant neoplasm of cervix [facility] Start: 1980 Screening for malign ant neoplasm of cervix Pap Smear [facility] Start: 1977 Hepatitis C antibody , confirmatory test Hepatitis C Screening [facility] [facility]: [facility] COVID-19 Vaccine (1 of 2) COVID-19 Vaccine (1 of 2) [facility] Start: 1974 HIV screening HIV Screening [facility] Start: 1971 Adolescent depressio n screening assessment Depression Screening (PHQ9) [facility] Start: 1962 History and physical examination, annual for health maintenance Wellness Visit [facility] Start: 1959 Hepatitis C antibody , confirmatory test HEPATITIS C SCREENING [facility] Start: 1959 Protein mass conc [facility]ammogram [facility] Start: 1959 Screening for malign ant neoplasm of cervix PAP SMEAR [facility] Start: 1959 Screening for malign ant neoplasm of colon [facility] Start: 1959 Screening mammography [facility] Start: 1959 Tetanus vaccination TETANUS EVERY 10 YR [facility] End: 04-20-[address] Sinus Imaging Routine Recurrent sinusitis 1 Occurrences starting 04/20/2020 until 04/20/2021 [facility] Comment on above: 1 Occurrences starti ng 04/20/2020 until 04/20/2021 End: 07-13-2020 Epidural steroid injection VR Epidural Steroid Inj Imaging Routine Charcot's joint of left foot Once for 1 Occurrences starting 07/13/2020 until 07/13/2020 [facility] Comment on above: Once for 1 Occurrenc es starting 07/13/2020 until 07/13/2020 Epidural steroid injection VR Epidural Steroid Inj Imaging Routine Charcot's joint of left foot 07/15/2020 1:42 PM EDT [facility] End: 02-05-2019 X-ray of left foot XR Foot Left 3+ Views (Standard) Routine Pain Once for 1 Occurrences starting 02/05/2019 until 02/05/2019 [facility] Comment on above: Once for 1 Occurrenc es starting 02/05/2019 until 02/05/2019 X-ray of left foot XR Foot Left 3+ Views (Standard) Routine Pain 02/05/2019 2:30 PM EDT [facility] End: 02-05-2019 XR Ankle Left 2 Views XR Ankle Left 2 Views Routine Pain Once for 1 Occurrences starting 02/05/2019 until 02/05/2019 [facility] Comment on above: Once for 1 Occurrenc es starting 02/05/2019 until 02/05/2019 XR Ankle Left 2 Views XR Ankle L eft 2 Views Routine Pain 02/05/2019 2:24 PM EDT [facility] Immunizations Immunization Date Immunization Notes Care Provider Anirudh velazquez 10-06-2023 influenza virus vaccine, unspecified formulation Mara BEVERLY [facility] 09-21-2023 influenza virus vaccine, unspecified formulation Mara BEVERLY [facility] 06-28-2023 zoster vaccine recombinant Mara BEVERLY [facility] 03-27-2023 zoster vaccine recombinant Mara BEVERLY [facility] 09-18-2022 COVID-19, mRNA, LNP-S, bivalent, PF, 50 mcg/0.5 mL dose Robyn Hernandez [facility] 09-18-2022 influenza, injectable, quadrivalent, preservative free Robyn David [facility] 09-20-2021 COVID-19, mRNA, LNP-S, PF, 100 mcg or 50 mcg dose SALOME EDMONDS [facility] 08-19-2021 influenza virus vaccine, unspecified formulation; Translations: [Fluzone PF Quadrivalent ] SALOME EDMONDS [facility] Comment on above: Reason for Medicatio n: Prophylaxis 01-21-2021 COVID-19, mRNA, LNP-S, PF, 30 mcg/0.3 mL dose; Translations: [Pfizer-BioNTech COVID-19 Vaccine] SALOME EDMONDS [facility] Comment on above: Reason for Medicatio n: Prophylaxis 12-24-2020 COVID-19, mRNA, LNP-S, PF, 30 mcg/0.3 mL dose; Translations: [Pfizer-BioNTech COVID-19 Vaccine] SALOME EDMONDS [facility] Comment on above: Reason for Medicatio n: Prophylaxis 08-30-2020 influenza virus vaccine, unspecified formulation SALOME EDMONDS [facility] 08-04-2020 influenza virus vaccine, unspecified formulation Kim TAMEZ [facility] 09-01-2019 influenza virus vaccine, live, attenuated, for intranasal use SALOME EDMONDS [facility] 09-02-2018 influenza virus vaccine, unspecified formulation SALOME EDMONDS [facility] 02-17-2017 tetanus toxoid, reduced diphtheria toxoid, and acellular pertussis vaccine, adsorbed; Translations: [Adacel (Tdap)] SALOME EDMONDS [facility] NEGATED: Highlighted row has not occurred!08-19-2024 influenza virus vaccine, unspecified formulation Mara BEVERLY [facility] NEGATED: Highlighted row has not occurred!08-20-2020 influenza virus vaccine, unspecified formulation SALOME EDMONDS [facility] Payers Date Payer Category Payer Self-pay 2023 Medicare (Managed Care) [employer] [id number] 2023 Unknown [employer] [id number] 2023-Present [address] [place] [id number] 2023 Medicare [id number] 2019 Unknown MMO MED M[employer] S UPERMED PPO xxxxxxxxxxxx 2019-Present xxxxxxxxxxxx [id number] 2019 Unknown MMO MED M[employer] S UPERMED PPO [id number] 2019-Present [id number] .[id number] 2019 Unknown [id number] 2008 Unknown xxxxxxxxxx 1.2.840.153796.1.13.385.2 .7.3.726736.315 2008 Unknown [id number] 1959 Self-pay [id number] 1959 Unknown [id number] 2.16.840.1.575158.3.579.2 .900 1959 Unknown [id number] 2.16.840.1.561320.3.579.2 .900 1959 Unknown [id number] 2.16.840.1.672780.3.579.2 .1959 Unknown [id number] 2.16.840.1.485900.3.579.2 .1959 Unknown [id number] 2.16.840.1.204087.3.579.2 .1959 Unknown [id number] 2.16.840.1.392379.3.579.2 .1959 Unknown [id number] 2.16.840.1.746732.3.579.2 .1959 Unknown [id number] 2.16.840.1.774941.3.579.2 .1959 Unknown [id number] 2.16.840.1.746553.3.579.2 .1959 Unknown [id number] 2.16.840.1.972280.3.579.2 .1959 Unknown [id number] 2.16.840.1.256299.3.579.2 .1959 Unknown [id number] 2.16.840.1.745755.3.579.2 .1959 Unknown [id number] 2.16.840.1.394113.3.579.2 .1959 Unknown [id number] 2.16.840.1.717219.3.579.2 .1959 Unknown [id number] 2.16.840.1.042360.3.579.2 .1959 Unknown [id number] 2.16.840.1.576842.3.579.2 .903 1959 Unknown [id number] 2.16.840.1.748793.3.579.2 .903 1959 Unknown [id number] 2.16.840.1.145907.3.579.2 .90 1959 Unknown [id number] 2.16.840.1.484964.3.579.2 .593 1959 Unknown [id number] 2.16.840.1.244484.3.579.2 .72 1959 Unknown [id number] 2.16.840.1.549425.3.579.2 .1959 Unknown [id number] 2.16.840.1.539412.3.579.2 .1959 Unknown [id number] 2.16.840.1.444181.3.579.2 .1959 Unknown [id number] 2.16.840.1.147045.3.579.2 .1959 Unknown [id number] 2.16.840.1.752489.3.579.2 .1959 Unknown [id number] 2.16.840.1.342763.3.579.2 .1959 Unknown [id number] 2.16.840.1.252769.3.579.2 .1959 Unknown [id number] 2.16.840.1.387202.3.579.2 .1959 Unknown [id number] 2.16.840.1.883561.3.579.2 .1959 Unknown [id number] 2.16.840.1.121686.3.579.2 .1959 Unknown [id number] 2.16.840.1.576441.3.579.2 .727 1959 Unknown [id number] 2.16.840.1.187000.3.579.2 .72 1959 Unknown [id number] 2.16.840.1.323470.3.579.2 .72 1959 Unknown [id number] 2.16.840.1.765250.3.579.2 .72 1959 Unknown [id number] 2.16.840.1.680331.3.579.2 .72 1959 Unknown [id number] 2.16.840.1.206222.3.579.2 .1959 Unknown [id number] 2.16.840.1.492933.3.579.2 .72 1959 Unknown [id number] 2.16.840.1.868033.3.579.2 .1258 1959 Unknown [id number] 2.16.840.1.380240.3.579.2 .1258 1959 Unknown [id number] 2.16.840.1.393480.3.579.2 .1258 1959 Unknown [id number] 2.16.840.1.899886.3.579.2 .1258 1959 Unknown [id number] 2.16.840.1.995626.3.579.2 .125 1959 Unknown [id number] 2.16.840.1.122492.3.579.2 .125 1959 Unknown [id number] 2.16.840.1.238596.3.579.2 .1259 Private Health Insurance [employer] [id number] Unknown [id number] Social History Date Type Detail Facility Start: 02-05-2019 End: 04-06-2023 Tobacco smoking status NHIS Never smoker [facility] Comment on above: Denies use. Start: 02-05-2019 History SDOH Alcohol Frequency 1 [facility] Sex Assigned At Not on file [facility] Start: 2020 End: 04-20-2020 Alcohol intake Lifetime non-drinker (finding) [facility] Exposure to SARS-CoV -2 (event) Not sure [facility] Start: 06-14-2020 End: 04-06-2023 Tobacco use and exposure Never used [facility] Tobacco smoking status Never [facility] Comment on above: Denies use. Start: 07-10-2024 End: 11-20-2024 Sex Assigned At Female [facility] Start: 07-10-2024 End: 11-20-2024 Alcoholic beverage intake Ex-drinker (finding) [facility] Start: 07-10-2024 End: 11-20-2024 History of Social function [facility] Start: 06-12-2023 Alcohol Comment Haven't drank measureable amount since I was in 89 [facility] Start: 1960 Sex assigned at Female [facility] Start: 03-11-2023 Gender identity Identifies as female gender (finding) [facility] Start: 03-11-2023 Sexual orientation Heterosexual (fin ding) [facility] Work Phone: Start: 09-04-2024 Sex Female (finding) [facility] Medical Equipment Procedure Code Equipment Code Equipment Origin al Text Equipment Identifier Dates [id number] FDA Start: 07-05-2020 KNEE TOTAL ARTHROPLASTY Jc DOMINIQUEMelva 04/02/23 Non Biological Knee L {[id number]{ [id number] FDA Start: 04-02-2023 KNEE TOTAL ARTHROPLASTY REVISION Jc DOMINIQUEMelva 05/16/23 Biological Knee L {[id number]{ [id number]{[id number] {[id number]{[id number]{21} [id number] FDA Start: 05-16-2023 Goals Date Patient Goal Desired Activity /State Personal health goal Functional Status Date Assessment Result Facility 09-30-2024 Functional Status N/A [facility] 08-19-2024 Functional Status N/A [facility] 08-19-2024 Functional Status [facility] 05-12-2024 Functional Status N/A [facility] 04-08-2024 Functional Status N/A [facility] 03-24-2024 Functional Status N/A [facility] 03-21-2024 Functional Status N/A [facility] 03-10-2024 Functional Status N/A [facility] 12-10-2023 Functional Status N/A [facility] 10-17-2023 Functional Status N/A [facility] 05-16-2023 Functional Status N/A [facility] 05-15-2023 Functional Status No [facility] 03-23-2023 Functional Status N/A [facility] 01-19-2023 Functional Status N/A [facility] 08-22-2022 Functional Status N/A [facility] 08-12-2022 Functional Status N/A [facility] 06-28-2022 Functional Status N/A [facility] 05-18-2022 Functional Status N/A [facility] 04-25-2022 Functional Status N/A [facility] Clinical Notes 03-13-2022 to 11-20-2024 Nicole Lin MA - 11/20/2024 9:30 AM Kayla Lehman - 11/20/2024 9:30 AM Kaitlynn Shepard MD - 07/29/2024 11:15 AM Dayna Lehman - 07/10/2024 10:00 AM EDT Note Date & Type Note Facility 11-20-2024 History of Present illness Narrative Associated Order(s): L Inj/Asp: R knee Post-Procedure Diagnose(s): Acute pain of right knee L Inj/Asp: R knee on 11/20/2024 9:23 AM Indications: diagnostic evaluation Details: 22 G needle Medications: 5 mg betamethasone acetate-betamethasone sodium phosphate 6 (3-3) MG/ML Outcome: tolerated well, no immediate complications Consent was given by the patient. Images from the original note were not included. Levi Sofia is a 64 y.o. female presents with chief complaint of right knee pain and swelling. HPI: Levi is here requesting cortisone injection to her knee. She is seeing Dr. Johnson tomorrow with her ankle fusion. She states it has been healing well, no drainage. She states she is getting fusion and consolidation. She has pain and stiffness to the knee. Swelling to the knee. She has no fever, chills or constitutional symptoms. She does request referral to pain management regarding potential of nerve blocks around the knee area. SUBJECTIVE: MEDICATIONS: Current Outpatient Medications Medication Instructions albuterol HFA 90 mcg/act inhaler INHALE 2 PUFFS FOUR TIMES DAILY NEEDED aspirin 81 MG EC tablet Every 24 hours atorvastatin (Lipitor) 20 MG tablet benzonatate (Tessalon) 200 MG capsule TAKE 1 CAPSULE BY MOUTH THREE TIMES DAILY for 10 days Breo Ellipta 100-25 MCG/ACT aerosol powder citalopram (CELEXA) 20 mg, Daily clindamycin (Cleocin) 300 MG capsule Take two caps one hour prior to appointment diclofenac (VOLTAREN) 75 mg, 2 times daily DULoxetine (CYMBALTA) 30 mg, Daily RT fluconazole (Diflucan) 150 MG tablet TAKE 1 TABLET BY MOUTH EVERY 3 DAYS NEEDED for post-op yeast problems hydroCHLOROthiazide (Microzide) 12.5 MG capsule ipratropium-albuterol (Duo-Neb) 0.5-2.5 mg/3 mL nebulizer solution levothyroxine (SYNTHROID, LEVOXYL) 137 mcg, Daily losartan (Cozaar) 50 MG tablet methylPREDNISolone (Medrol Dospak) 4 MG tablets montelukast (SINGULAIR) 10 mg, Every evening omeprazole (PRILOSEC) 20 mg, Daily oxybutynin XL (Ditropan-XL) 15 MG 24 hr tablet permethrin (Elimite) 5 % cream apply topically once as directed propranolol LA (Inderal LA) 80 MG 24 hr capsule SUMAtriptan (Imitrex) 100 MG tablet Every 24 hours Symbicort 160-4.5 MCG/ACT inhaler 2 puffs, 2 times daily ALLERGIES: Allergies Allergen Reactions Amoxicillin-Pot Clavulanate Hives Other Reaction(s): Other: See Comments Chlorzoxazone Unknown Moxifloxacin Unknown Penicillins Hives SURGICAL HISTORY: Past Surgical History: Procedure Laterality Date BUNIONECTOMY Right Dr. Gonzalez CATARACT EXTRACTION HYSTERECTOMY 2008 IR INJECTION EPIDURAL STEROID 07/15/2020 IR INJECTION EPIDURAL STEROID 07/15/2020 OTHER SURGICAL HISTORY Right elbow thermal fasciotomy [facility] RECONSTRUCTION CLEFT FOOT 12/2020 RETINAL LASER PROCEDURE SINUS SURGERY 1994 TOTAL KNEE ARTHROPLASTY 04/02/2023 LTKA compounded by obestiy - MTP TOTAL KNEE ARTHROPLASTY Left 05/16/2023 L knee exploration, extensor tendon repair with allograft and graft jacket- MTP FAMILY HISTORY: Family History Problem Relation Name Age of Onset Heart disease Mother Stroke Father Christian Patel Cancer Brother Stas and Emerson Patel SOCIAL [...] OBJECTIVE: Visit Vitals Ht 5' 10 Wt 268 lb 3.2 oz BMI 38.48 kg/m OB Status Unknown Smoking Status Never BSA 2.45 m Physical Exam On physical exam, she is alert and oriented. Vital signs are stable. There is no obvious sign of rash or infectious process. The knee has moderate hypertrophic changes. There is mild swelling. She had a boot to the lower extremity. She does relate that her incisions are clean, dry and intact. She has lack of full extension by 4-5 degrees and she will flex the knee to approximately 105 with pain throughout. She does have a moderate amount of irritability just to palpation anterior and inferior medially. X-rays and imaging permanently saved to the patient's record were reviewed in the past with advanced degenerative changes of the right knee. Remote history of left knee replacement. ASSESSMENT AND PLAN: Assessment/Plan Right knee advanced osteoarthritis, obesity with BMI greater than 40. Subacute ankle fusion with progressive healing per report. The nature of the findings were discussed at length. We discussed conservative, injection and surgical management options of the knee. Given her subacute surgery, I would not recommend knee replacement at this time. She needs more time for healing. Ice, Tylenol and topicals were reviewed. We will set up a pain management referral for consideration of geniculate nerve blocks. With consent from the patient today, limited ultrasound is performed identifying the capsule, patella and extensor mechanism. 1 cc of cortisone (3 mg of Betamethasone sodium phosphate with 3 mg of Betamethasone acetate) and 1 cc of 1% plain Lidocaine was injected to the knee into the suprapatellar pouch under ultrasound guidance. She tolerated the injection well. She is aware that she can have up to three injections per year. We discussed alternative management with Visco supplementation which she has had which has not provided relief. She voices verbal understanding. She is discharged in stable condition. Numerous questions were answered. Follow up p.r.n.. The patient was seen and examined. From the time of check in, nurse triage, vital signs, x-ray, x-ray interpretation, review of systems, comprehensive history and physical exam as well as setting up treatment plan and further management took 35 minutes. Cosigned by Melva Grimaldo DO at 11/24/2024 2:51 PM EST documented in this encounter [facility] 09-28-2024 Hospital Discharge instructions Patient Education 09/27/2024 [...] to your foot. Wear well-fitted footwear. Take xini-cbf-exxaoyb and prescription medicines only as told by [...] provider. Document Revised: 10/11/2023 Document Reviewed: 10/11/2023 [employer] Patient Education 2023 [employer]. Follow Up Care 09/25/2024 14:53:36 With:Mara BEVERLY MD, FAM Address: [place] [address]- When: Unknown Comments:see me in [facility] 09-27-2024 Note Patient Education Orthopedics Neuropathic Arthropathy [...] your foot. Wear well-fitted footwear. ??? Take vvnx-dpx-qbwenvs and prescription medicines only as told by [...] problems with your (more content not included)... [facility] 08-19-2024 Hospital Discharge instructions Patient Education 08/19/2024 [...] powder, vinegar, hot sauces, and barbecue sauce. ?[place] fruit juices and citrus fruits, such as oranges, portia, and limes. ?Tomato-based foods, such as red sauce, chili, salsa, and pizza with red sauce. ?Fried and fatty foods, such as donuts, frisian fries, potato chips, and high-fat dressings. ?High-fat [...] ask your health care provider. Medicines Take exfl-rgq-ynflifa and prescription medicines only as told by [...] told by your health care provider. Take umix-lzw-qaixulm and prescription medicines only as told by [...] provider. Document Revised: 04/13/2021 Document Reviewed: 04/13/2021 [employer] Patient Education 2023 [employer]. 08/19/2024 15:50:54 Chronic Kidney Disease, Adult Chronic [...] Follow these instructions at home: Medicines Take xlli-mpg-nkypfpj and prescription medicines only as told by [...] is important. Where to find more information [place] [employer] Kidney Patients: www.aakp.org National Kidney Foundation: www.kidney.org [place] Kidney Fund: www.akfinc.org Life Options: www.lifeoptions.org Kidney [...] provider. Document Revised: 01/12/2021 Document Reviewed: 01/12/2021 [employer] Patient Education 2023 [employer]. 08/19/2024 15:50:52 Hypothyroidism Hypothyroidism Hypothyroidism is when [...] away. Follow these instructions at home: Take ncjs-nux-wmvmgoa and prescription medicines only as told by [...] provider. Document Revised: 10/10/2022 Document Reviewed: 10/10/2022 [employer] Patient Education 2023 [employer]. 08/19/2024 15:50:49 DASH Eating Plan DASH Eating [...] Dairy Whole or 2% milk, cream, and thgu-vkn-gerb. Whole or full-fat cream cheese. Whole-fat or [...] more information National Heart, Lung, and Blood [place] (NHLBI): nhlbi.nih.gov [place] [employer] Association (AHA): heart.org Academy of Nutrition and Dietetics: eatright.org National Kidney Foundation (NKF): kidney.org This information is not intended to replace advice given to you by your health care provider. Make sure you discuss any questions you have with your health care provider. Document Revised: 10/25/2023 Document Reviewed: 10/25/2023 [employer] Patient Education 2023 [employer]. 08/19/2024 15:50:26 Dyslipidemia Dyslipidemia Dyslipidemia is an [...] quitting, ask your health care provider. Take svcv-yts-ygqkcnt and prescription medicines only as told by [...] provider. Document Revised: 05/11/2023 Document Reviewed: 12/12/2021 [employer] Patient Education 2023 [employer]. 08/19/2024 15:50:16 Diabetes Mellitus and Foot Care Diabetes Mellitus and Foot Care Diabetes, also called diabetes mellitus, may cause problems with your feet and legs because of poor blood flow (circulation). Poor circulation may make your skin: Become thinner and pulp drier firer. Break more easily. Heal more slowly. Peel [...] right away. Where to find more information [place] Diabetes Association: diabetes.org Association of Diabetes Care [...] provider. Document Revised: 04/11/2023 Document Reviewed: 04/11/2023 [employer] Patient Education 2023 [employer]. Follow Up Care 05/12/2024 19:41:16 With:Mara BEVERLY MD, FAM Address: [address] [place] [address] [place] [address]- When:6 months Comments:staff call [facility] need her recent labs and EKG from 08/12/24 [facility] [place] 08-19-2024 Note Patient Education Endocrinology Hypothyroidism Hypothyroidism [...] Follow these instructions at home: ??? Take epxa-dhj-qophsyx and prescription medicines only as told by [...] provider. Document Revised: 10/10/2022 Document Reviewed: 10/10/2022 [employer] Patient Education ? 2023 [employer]. Diabetes Mellitus and Foot Care Diabetes, also called diabetes mellitus, may cause problems with your feet and legs because of poor blood flow (circulation). Poor circulation may make your skin: ??? Become thinner and pulp drier firer. ??? Break more easily. ??? Heal more slowly. (more content not included)... [facility] 07-29-2024 History of Present illness Narrative Assessment/Plan Diabetes Mellitus without sign of diabetic retinopathy on dilated retinal examination today OU: Discussed the pathophysiology of diabetes and its effect on the eye. Stressed the importance of strong glucose control. Advised of importance of at least yearly dilated examinations, but to contact us immediately for any problems or concerns. documented in this encounter [facility] 07-10-2024 History of Present illness Narrative [...] BUNIONECTOMY Right Dr. Gonzalez CATARACT EXTRACTION HYSTERECTOMY 2009 IR INJECTION EPIDURAL STEROID 07/15/2020 IR INJECTION EPIDURAL STEROID 07/15/2020 OTHER SURGICAL HISTORY Right elbow thermal fasciotomy [facility] RECONSTRUCTION CLEFT FOOT 12/2020 SINUS SURGERY 1994 TOTAL KNEE ARTHROPLASTY 04/02/2023 LTKA compounded by obestiy - MTP TOTAL KNEE ARTHROPLASTY Left 05/16/2023 L knee exploration, extensor tendon repair with allograft and graft jacket- MTP FAMILY HISTORY: Family History Problem Relation Name Age of Onset Heart disease Mother Stroke Father Cancer Brother Stas and Emerson Buigerald SOCIAL HISTORY: Social History Tobacco Use Smoking [...] We discussed the role of Visco supplementation, correction role of total knee replacement. Follow up [...] took 35 minutes. documented in this encounter [facility] 05-10-2024 Hospital Discharge instructions [...] plan? Your health care provider or certified wellness program manager can help you make a plan for [...] (heat stroke). Where to find more information [place] [employer] Association: www.diabetes.org Summary Exercising regularly is important for overall health, especially for people who have diabetes mellitus. Exercising has many health benefits. It increases muscle strength and bone density and reduces body fat and stress. It also lowers and controls blood glucose. Your health care provider or certified wellness program manager can help you make an activity plan [...] provider. Document Revised: 07/05/2020 Document Reviewed: 07/05/2020 [employer] Patient Education 2022 [employer]. Follow Up Care 12/10/2023 19:22:31 With:Mara BEVERLY MD, FAM Address: When:Within 3 Month(s) Comments:plan A1C at visit, please set up bacxk to back with medicare exam same date thanks [facility] [place] 05-10-2024 Note Patient Education [...] plan? Your health care provider or certified wellness program manager can help you make a plan for [...] stroke). Where to find more information ? [place] [employer]: www.diabetes.org Summary ? Exercising regularly is important for overall health, especially for people who have diabetes mellitus. ? Exercising has many health benefits. It increases muscle strength and bone density and reduces body fat and stress. It also lowers and controls blood glucose. ? Your health care provider or certified wellness program manager can help you make an activity plan [...] provider. Document Revised: 07/05/2020 Document Reviewed: 07/05/2020 Else[employer]ia[employer] Patient Education ? 2022 [employer]. [facility] 04-08-2024 Hospital Discharge instructions Patient Education 04/08/2024 [...] numbers. This can be done either in [place]ese (U.S.) or metric measurements. Note that charts and online BMI calculators are available to help you find your BMI quickly and easily without having to do these calculations yourself. To calculate your BMI in Congolese (U.S.) measurements: 1.Measure your weight in pounds [...] Centers for Disease Control and Prevention: www.cdc.gov [place] Heart Association: www.heart.org National Heart, Lung, and Blood [place]: www.nhlbi.nih.gov Summary Body mass index (BMI) is a number that is calculated from a person's weight and height. BMI may help estimate how much of a person's weight is composed of fat. BMI can help identify those who may be at higher risk for certain medical problems. BMI can be measured using Congolese measurements or metric measurements. BMI charts are used to identify whether you are underweight, normal weight, overweight, or obese. This information is not intended to replace advice given to you by your health care provider. Make sure you discuss any questions you have with your health care provider. Document Revised: 06/30/2020 Document Reviewed: 05/07/2020 Realm Patient Education 2022 [employer]. 04/08/2024 15:40:09 Bedbugs, Fnle-bx-Zoat Bedbugs Bedbugs are tiny bugs that live [...] lips, face, mouth, tongue, or throat. ?Feeling clinical data programmer the face. ?Itchy, red, swollen areas of [...] provider. Document Revised: 12/26/2022 Document Reviewed: 12/21/2022 Realm Patient Education 2022 [employer]. Follow Up Care 04/08/2024 11:55:11 With:Mara BEVERLY MD [facility] Address: [address] [place], [place] [id number]- When: Unknown [facility] 03-25-2024 Hospital Discharge instructions Patient [...] breathing (shortness of breath). 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 Chest tightness. Tiredness (fatigue) with [...] condition. Follow these instructions at home: Take scrn-did-vzwecjk and prescription medicines only as told by [...] provider. Document Revised: 07/26/2022 Document Reviewed: 07/17/2022 Realm Patient Education 2022 [employer]. Follow Up Care 03/24/2024 22:42:12 With:Mara BEVERLY Address: [place] [address]- Business (1) When:Within 3 Day(s) [facility] 03-24-2024 Evaluation + Plan note Extrac mary [...] cough and congestion, 200 mL, Refill(s) 0, Geodesic dome [place] #37, 177, cm, 03/24/24 22:52:00 EDT, Height/Length Dosing, 128, kg, 03/24/24 22:52:00 EDT, Weight Dosing B-Type Natriuretic Peptide Basic Metabolic Panel CBC w/ Auto Diff ECG 12 Lead Adult ED Cardiac Monitoring eGFR Influenza A&B Ag Oxygen Saturation Oxygen Therapy PT & PTT Rapid COVID Antigen ([facility]) Saline Lock Insert Troponin 0 Hr. Troponin 1 Hr. XR Chest Single View Future Appointments Appointment Date:05/12/2024 06:40:00 PM Scheduled Provider:Mara BEVERLY MD Location:[facility] [place] Appointment Type:FM Open Appointment Date:05/21/2024 02:15:00 PM Scheduled Provider:Farzad FRANCE MD Location:[facility] Appointment Type:URO New Patient Future Scheduled Tests Laboratory* TSH With T4fr Reflex 12/08/23 * Vitamin D 25 Hydroxy 12/10/23 * CBC w/ Auto Diff 12/08/23 * Comprehensive Metabolic Panel 12/08/23 * Lipid Panel 12/08/23 Radiology* MA Mamm Screen w/CAD if perf and 3D Kenji 12/08/[address] [facility]05-31-2024 Hospital Discharge instructions Patient Education 03/21/2024 13:41:57 Asthma, Adult, Ufrg-eu-Jniz Asthma, Adult Asthma is a condition that [...] (dander). Cockroaches. Pollen. Air pollution (like household product manufacturing professional, wood smoke, smog, or chemical odors). What [...] of polyester or cotton. General instructions Take zldn-teg-kfisxzm and prescription medicines only as told by [...] pollute the air. These may include household product manufacturing professional, wood smoke, smog, or chemical odors. This information is not intended to replace advice given to you by your health care provider. Make sure you discuss any questions you have with your health care provider. Document Revised: 07/17/2022 Document Reviewed: 07/17/2022 Realm Patient Education 2022 [employer]. Follow Up Care 03/21/2024 11:33:38 With:Mara BEVERLY MD, FAM Address: When: only if needed [facility] [place] 05-20-2024 Hospital Discharge instructions Patient Education 03/10/2024 [...] or grass. Air pollutants such as household product manufacturing professional, aerosol sprays, strong odors, and smoke of [...] Follow these instructions at home: Medicines Take wody-vrk-txpgztt and prescription medicines only as told by [...] provider. Document Revised: 07/30/2022 Document Reviewed: 07/30/2022 Realm Patient Education 2022 [employer]. Follow Up Care 03/10/2024 16:13:14 With:Mara BEVERLY MD, FAM Address: When: only if needed [facility] [place] 02-19-2024 Hospital Discharge instructions Patient Education 12/10/2023 [...] Do not chew gum. General instructions Take khfg-uee-bpjdlbz and prescription medicines only as told by [...] important. Where to find more information National [place] of Dental and Craniofacial Research: www.nidcr.nih.gov Contact [...] provider. Document Revised: 05/21/2022 Document Reviewed: 05/21/2022 Realm Patient Education 2022 [employer]. 12/08/2023 16:12:10 DASH Eating Plan DASH Eating [...] Dairy Whole or 2% milk, cream, and jqnm-wsz-ooqz. Whole or full-fat cream cheese. Whole-fat or [...] more information National Heart, Lung, and Blood [place]: www.nhlbi.nih.gov [place] Heart Association: www.heart.org Academy of Nutrition and [...] provider. Document Revised: 09/10/2020 Document Reviewed: 09/10/2020 Realm Patient Education 2022 [employer]. Follow Up Care 11/15/2023 15:10:42 With:SIRIA ARMENTA, EVI Nicole Address: [address] [place] [phone] When: Unknown Comments:see me in April, get labs at [facility] late March and a mammogram at [facility] [place] 12-27-2023 Hospital Discharge instructions Patient Education 10/17/2023 15:11:37 Sinus Infection, Adult, Odqg-by-Vith Sinus Infection, Adult A sinus infection is [...] saline washes). ?Medicines that treat allergies (antihistamines). ?Wxbk-uzw-bfznymp pain relievers. If caused by bacteria, your doctor may wait to see if you will get better without treatment. You may be given antibiotic medicine if you have: ?A very bad infection. ?A weak body defense system. If caused by growths in the nose, surgery may be needed. Follow these instructions at home: Medicines Take, use, or apply zfdh-yln-socfvuh and prescription medicines only as told by [...] cannot use soap and water, use hand manager meat. Do not smoke. Avoid being around people [...] provider. Document Revised: 09/12/2022 Document Reviewed: 09/12/2022 Realm Patient Education 2022 [employer]. 10/17/2023 15:11:36 BMI for Adults BMI [...] numbers. This can be done either in [place]ese (U.S.) or metric measurements. Note that charts and online BMI calculators are available to help you find your BMI quickly and easily without having to do these calculations yourself. To calculate your BMI in [place]ese (U.S.) measurements: 1.Measure your weight in pounds [...] Centers for Disease Control and Prevention: www.cdc.gov [place] Heart Association: www.heart.org National Heart, Lung, and Blood [place]: www.nhlbi.nih.gov Summary Body mass index (BMI) is a number that is calculated from a person's weight and height. BMI may help estimate how much of a person's weight is composed of fat. BMI can help identify thosewho may be at higher risk for certain medical problems. BMI can be measured using Congolese measurements or metric measurements. BMI charts are used to identify whether you are underweight, normal weight, overweight, or obese. This information is not intended to replace advice given to you by your health care provider. Make sure you discuss any questions you have with your health care provider. Document Revised: 06/30/2020 Document Reviewed: 05/07/2020 Realm Patient Education 2022 [employer]. Follow Up Care 10/17/2023 10:36:14 With:Mara BEVERLY MD, FAM Address: [address] [place], [place] [phone]- When: Unknown [facility] 07-27-2023 Evaluation + Plan noteExtracted [...] with brace on in full extension. Mepilex. Linda out POD#21. ASA DVTp daily 4 weeks. [...] from: Title:Initial consult Hospitalist Author:Roland veras MD, Lcokmahendra Date:05/16/23 Extensor mechanism malalignm ent of knee [...] Plan: per Orthopedics Addendum by Analy ARMENTA, samson robertson on May 16, 2023 18:34:39 EDT This [...] Ambulatory Surgery Unit, and To home ). [facility]07-24-2023 Hospital Discharge instructions Follow Up Care 05/14/2023 10:03:11 With:Melva Grimaldo Address: [address] [place], [place] [id number] Md7 (1) When: Unknown Comments:Keep scheduled appointment [facility]06-01-2023 Hospital Discharge instructions Patient Education 03/22/2023 20:43:43 [...] provider. Document Revised: 02/27/2022 Document Reviewed: 02/27/2022 Realm Patient Education 2022 [employer]. Follow Up Care 09/18/2022 10:47:10 With:Mara BEVERLY MD, FAM Address: [address] [place] [id number]- When:6 months [facility] [place] 11-06-2022 Hospital Discharge instructions Patient Education 08/27/2022 [...] 04/22/2012 Document Revised: 10/01/2019 Document Reviewed: 10/01/2019 Realm Patient Education 2019 [employer]. [facility] 10-22-2022 Hospital Discharge instructions [...] height. This can be done either in [place]ese ([place].S.) or metric measurements. Note that charts are available to help you find your BMI quickly and easily without having to do these calculations yourself. To calculate your BMI in [place]ese ([place].S.) measurements, your health care provider will: [...] medical problems. BMI can be measured using Congolese measurements or metric measurements. To interpret your [...] 06/19/2005 Document Revised: 09/20/2018 Document Reviewed: 08/21/2018 Realm Patient Education 2020 [employer]. 08/12/2022 13:36:15 Sinusitis, Adult, Ftij-mk-Eijk Sinusitis, Adult Sinusitis is soreness and swelling [...] at home: Medicines Take, use, or apply fnpw-qus-xswbjhi and prescription medicines only as told by [...] is no soap and water, use hand manager meat. Do not smoke. Avoid being around people [...] 03/26/2009 Document Revised: 03/10/2019 Document Reviewed: 03/10/2019 Realm Patient Education 2020 [employer] Follow Up Care 08/12/2022 11:36:36 With:SIRIA ARMENTA, EVI Nicole Address: [address] [place] [phone] When: Unknown [facility] 07-29-2022 Hospital Discharge instructions Follow Up Care 05/19/2022 10:40:52 With:Isaac ARMENTA, Joe Dunlap Address: When:3 months Comments:Call for sooner apt with new/worsening symptoms [facility]07-05-2022 Hospital Discharge instructions Patient Education 04/25/2022 21:16:41 [...] Follow these instructions at home: Medicines Take sgci-jvd-zdaqbwm and prescription medicines only as told by [...] 07/18/2006 Document Revised: 04/10/2019 Document Reviewed: 04/10/2019 ElseCardiaLen Patient Education 2020 [employer]. Follow Up Care 04/25/2022 16:19:02 With:SIRIA ARMENTA, EVI Nicole Address: When: only if needed [facility] 05-23-2022 Hospital Discharge instructions Patient Education 03/13/2022 [...] pollution. Aerosol sprays and fumes from household product manufacturing professional. Household pests and their droppings, including dust [...] or starting any new medicines. Medicines Take jmoc-hju-yupaivf and prescription medicines only as told by [...] 09/26/2010 Document Revised: 09/20/2018 Document Reviewed: 03/24/2017 Realm Patient Education 2020 [employer]. Follow Up Care 09/13/2021 10:56:46 With:Mara BEVERLY MD, FAM Address: [address] [place] [address]- When:6 months [facility] Evaluation + Plan note Future Appointments Appointment Date:03/14/2022 10:20:00 AM Scheduled Provider:[facility]LY [facility] Type: Open Future Scheduled Tests Laboratory* TSH With T4fr Reflex 09/13/21 * CBC w/ Auto Diff 09/13/21 * Comprehensive Metabolic Panel 09/13/21 * Lipid Panel 09/13/21 Radiology* MRI Shoulder w/o Contrast Right 09/13/[address] [facility] Future Appointments Appointment Date:08/29/2022 10:20:00 AM Scheduled Provider:Mara BEVERLY MD Location:[facility] [place] Appointment Type: Open Future Scheduled Tests Radiology* MRI Shoulder w/o Contrast Right 09/13/21 [facility] evaluation + Plan note Future Appointments Appointment Date:08/29/2022 10:20:00 AM Scheduled Provider:Mara BEVERLY MD Location:[facility] [place] Appointment Type: Open Future Scheduled Tests Radiology* MRI Shoulder w/o Contrast Right 09/13/21 [facility] Evaluation + Plan note Future Appointments Appointment Date:08/29/2022 10:20:00 AM Scheduled Provider:Mara BEVERLY MD [facility] Type: Open Future Scheduled Tests Radiology* Echo Transthoracic Complete 05/18/22 * NM Myocardial Spect Rest/Stress 2 Day 05/18/22 * MRI Shoulder w/o Contrast Right 09/13/[address] [facility] Future Appointments Appointment Date:08/29/2022 10:20:00 AM Scheduled Provider:Mara BEVERLY MD [facility] Type: Open Appointment Date:09/27/2022 11:45:00 AM Scheduled Provider:Joe Gray MD [facility] Type:Cardiology Follow Up (FT) Future Scheduled Tests Radiology* MRI Shoulder w/o Contrast Right 09/13/[address] [facility] Future Appointments Appointment Date:08/22/2022 08:30:00 AM Scheduled Provider: [facility] Type:Cardiology Nurse Visit (FT) Appointment Date:08/29/2022 10:20:00 AM Scheduled Provider:Mara BEVERLY MD [facility] Type: Open Appointment Date:09/27/2022 11:45:00 AM Scheduled Provider:Joe Gray MD [facility] Type:Cardiology Follow Up (FT) Future Scheduled Tests Radiology* MRI Shoulder w/o Contrast Right 09/13/21 [facility] Evaluation + Plan note Future Appointments Appointment Date:09/27/2022 11:45:00 AM Scheduled Provider:Joe Gray MD [facility] Type:Cardiology Follow Up (FT) Future Scheduled Tests Radiology* MRI Shoulder w/o Contrast Right 09/13/21 [facility] Evaluation + Plan note Future Appointments Appointment Date:03/19/2023 09:40:00 AM Scheduled Provider:Mara BEVERLY MD [facility] Type: Open [facility] Evaluation + Plan note Future Appointments Appointment Date:04/02/2023 07:30:00 AM Scheduled Provider: Location:[facility] Appointment Type:Surgery FT Future Scheduled Tests Laboratory* TSH With T4fr Reflex 03/23/23 * ALT 03/23/23 * AST 03/23/23 * Lipid Panel 03/23/23 [facility] Evaluation + Plan note Future Appointments Appointment Date:04/02/2023 07:30:00 AM Scheduled Provider: Location:[facility] Appointment Type:Surgery FT [facility] Future Appointments Appointment Date:05/12/2024 06:40:00 PM Scheduled Provider:Mara BEVERLY MD [facility] Type: Open Future Scheduled Tests Laboratory* TSH With T4fr Reflex 12/08/23 * Vitamin D 25 Hydroxy 12/10/23 * CBC w/ Auto Diff 12/08/23 * Comprehensive Metabolic Panel 12/08/23 * Lipid Panel 12/08/23 Radiology* MA Mamm Screen w/CAD if perf and 3D Kenji 12/08/23 [facility] Evaluation + Plan note Future Appointments Appointment Date:05/12/2024 06:40:00 PM Scheduled Provider:Mara BEVERLY MD Location:[facility] Appointment Type: Open Appointment Date:05/21/2024 02:15:00 PM Scheduled Provider:Farzad FRANCE MD Location:[facility] Appointment Type:URO New Patient Future Scheduled Tests Laboratory* TSH With T4fr Reflex 12/08/23 * Vitamin D 25 Hydroxy 12/10/23 * CBC w/ Auto Diff 12/08/23 * Comprehensive Metabolic Panel 12/08/23 * Lipid Panel 12/08/23 Radiology* MA Mamm Screen w/CAD if perf and 3D Kenji 12/08/23 [facility] Evaluation + Plan note Future Appointments Appointment Date:05/12/2024 06:40:00 PM Scheduled Provider:Mara BEVERLY MD [facility] Type: Open Appointment Date:05/21/2024 02:15:00 PM Scheduled Provider:Farzad FRANCE MD Location:[facility] Appointment Type:URO New Patient Future Scheduled Tests Laboratory* HgbA1c 04/14/24 Radiology* MA Mamm Screen w/CAD if perf and 3D Kenji 12/08/[address] [facility] Future Appointments Appointment Date:05/14/2024 12:15:00 PM Scheduled Provider: Location[facility] Appointment Type:MA Screen (FT) Appointment Date:05/14/2024 01:00:00 PM Scheduled Provider: [facility] Type:BD Bone Density (FT) Appointment Date:05/21/2024 02:15:00 PM Scheduled Provider:Farzad FRANCE MD Location:[facility] Appointment Type:URO New Patient Appointment Date:08/19/2024 02:30:00 PM Scheduled Provider: Location:[facility] Appointment Type:FM Medicare Wellness Welcome Appointment Date:08/19/2024 03:40:00 PM Scheduled Provider:Mara BEVERLY MD Location:[facility] Appointment Type: Open Future Scheduled Tests Radiology* BD Bone Density DEXA 05/14/24 * MA Mamm Screen w/CAD if perf and 3D Kenji 05/14/24 [facility] Evaluation + Plan note Future Appointments Appointment Date:05/14/2024 12:15:00 PM Scheduled Provider: Location[facility] Appointment Type:MA Screen (FT) Appointment Date:05/14/2024 01:00:00 PM Scheduled Provider: [facility] Type:BD Bone Density (FT) Appointment Date:05/21/2024 02:15:00 PM Scheduled Provider:Farzad FRANCE MD Location:[facility] Appointment Type:URO New Patient Appointment Date:08/19/2024 02:30:00 PM Scheduled Provider: Location:[facility] Appointment Type:[facility] Appoint[facility] Date:08/19/2024 03:40:00 PM Scheduled Provider:Mara BEVERLY MD Location:[facility] Appointment Type: Open Diagnostic Tests Pending * Microalbumin Level Urine 05/12/24 * U Protein/Creat Ratio 05/12/24 Future Scheduled Tests Radiology* BD Bone Density DEXA 05/14/24 * MA Mamm Screen w/CAD if perf and 3D Kenji 05/14/[address] [facility] Future Appointments Appointment Date:05/21/2024 02:15:00 PM Scheduled Provider:Farzad FRANCE MD Location:[facility] Appointment Type:URO New Patient Appointment Date:08/19/2024 02:30:00 PM Scheduled Provider: Location:[facility] [place] Appointment Type: Medicare Wellness Welcome Appointment Date:08/19/2024 03:40:00 PM Scheduled Provider:Mara BEVERLY MD [facility] Type: Open [facility] Evaluation + Plan note Future Appointments Appointment Date:08/20/2025 11:00:00 AM Scheduled Provider: Location:[facility] [place] Appointment Type:FM Medicare Wellness Subsequent [facility] [place] Evaluation + Plan note Future Appointments Appointment Date:03/05/2025 09:00:00 AM Scheduled Provider:Mara BEVERLY MD [facility] Type: Open Appointment Date:08/20/2025 11:00:00 AM Scheduled Provider: [facility] Type: Medicare Wellness Subsequent [facility] [place] Evaluation note* Diagnosis Type 2 diabetes mellitus without complication, without long-term current use of insulin ([facility])- Primary Pseudophakia Lens replaced by other means documented in this encounter [facility] HealthcareEvaluation noteNo assessment information availableMercy Hospital Work Phone: Evaluation note* Diagnosis Artificial knee joint present, left- Primary Acute pain of right knee documented in this encounter [facility] HealthcareEvaluation note* Diagnosis Acute pain of right knee- Primary documented in this encounter [facility] HealthcareHospital course Narrative No data available for this section [facility] No data available for this section [facility] No data available for this section [facility] [place] History of Present Illness * Exten, Carlos [...] From anonsurgical standpoint I would recommend a [place] walker. This could be custom fit for her. I would recommend that she try to find a shoe of adequate height to have on the other side in order to minimize discomfort in her back. If she does not have significant relief from the [place] walker I would recommend obtaining a CT scan for presurgical planning and considering fusion of multiple joints in the hindfoot and midfoot including the calcaneocuboid, talonavicular, navicular cuneiform, and possible tarsometatarsal joints. She would need to be nonweightbearing for approximately 12 weeks after surgery. After discussion the patient and her sister both agree that she would like to try nonsurgical treatment first. The [place] walker was ordered. She will have this fitted at [facility] [place]. She will follow-up after wearing it for several weeks. Levi Sofia was agreeable to the plan and there were no learning barriers encountered. Follow-Up: After wearing the [place] walker for several weeks. X-rays of the [...] was seen initially in the [facility] podiatry department. She was first placed in [...] she saw for her foot was a music arranger by the name of Dr. Wakefield in [place]. Overall for the treatment of her foot and ankle she has never been given a custom brace. She does have a pair of three-quarter length hard podiatry style orthotics. These were prescribed by Dr. gonzalez. she has also been given an ASO. Aside from when she was in the cast she was never nonweightbearing. She was told by a music arranger in the past that she has neuropathy. She is not a diabetic. She has noknown causes of neuropathy. 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 She is not a smoker. Past Medical History: Diagnosis Date Disease of thyroid gland Hypertension and Past Surgical History: Procedure Laterality Date ELBOW SURGERY Left 2011 scope FOOT SURGERY Right [address] Gonzalez Past medical, past surgical, family history, medications, allergies, and smoking status reviewed and updated as appropriate in [employer]. A 13-system review of systems was completed [...] the following: She will remain in the [place] walker and wear the elevated shoe on [...] appointment I recommended that she get a [place] walker. She has that today. She also has an issue with an elevated sole on the contralateral side. She had this done at [facility]. She denies any s ignificant [...] distress. Standing: Patient is ambulating in a [place] walker and shoe with a lift on [...] we. Think about coming out of the [place] walkerand into a diabetic shoe and orthotic. [...] midfoot deformity. She has been using a [place] walker. She says her pain is significantly improved in the [place] walker. She now is having pain on [...] distress. Standing: Patient is ambulating in a [place] walker and shoe with a lift on [...] Visit Patient Name: Levi Sofia MR #: [id number] : 1960 Physicians: Mara Beverly MD (Family); [...] was in [address]z in [facility]. She has long-standing history of allergy/sinus problems [...] file Gets together: Not on file Attends jain service: Not on file Active member of [...] Conti CNP 03/09/20 documented in this encounter* Emma, Carlos Gerber MD - 06/14/2020 11:04 AM [...] try laminated lining. These were fashioned at [employer] She also does not have relief from [...] were reviewed and updated as appropriate in [facility]. She is not a current tobacco [...] 07/13/2020 10:10 AM EDT OFFICE CONSULTATION NOTE [facility] [address] [facility] [address] [facility] [phone] Physicians: Mara Beverly MD (Family); Carlos Carter [...] injections for this. She has seen several music arranger and orthopedic surgeons in the past for [...] left foot. Patient was fitted with a [place] walker for the left foot which did [...] (180 mg total) by mouth daily . 5/19/20 9/22/20 Yes Jaspreet Conti CNP levothyroxine (LEVO-T) 137 [...] Foot Added automatically from request for surgery [id number] Objective: Vitals: BP 140/75 (BP Location: Left [...] following: I recommend she continue in the [place] walker. She will follow-up in 6 months with new repeat x-rays of the left foot. We discussed that after that point time she can either try to get back into regular footwear or shecan continue wearing the [place] walker lifelong. Levi was agreeable to the plan and there were no learning barriers encountered. Follow-Up: Followup 6 months. New xrays will be needed at the next visit. Subjective: Levi Sofia is here for a follow visit in regards to her left charcot midfoot deformity. She has been using a [place] walker. She says her pain is significantly improved in the [place] walker. Smoking status, allergies, medications, and non-medications were reviewed and updated as appropriate in [employer]. She is not a current tobacco user. Exam: Vitals: 09/04/19 0831 BP: 147/84 Pulse: (!) 59 Weight: 129.3 kg (285 lb) Height: 5' 10 The patient is awake, alert and orientated x3, and in no apparent distress. Standing: Patient is ambulating in a [place] walker and shoe with a lift on [...] file Gets together: Not on file Attends jain service: Not on file Active member of [...] or other concerns. She is employed at [employer] and would like to haveCT completed there. She was instructed to get copy of CT scan and bring to next follow-up with Dr. Mzaa to review. Instructed to use mupirocin ointment [...] Documents on File Type Date Recorded Patient Desktop Technician Expl anation Advance Directives and Livin g Will 03/12/2019 10:07 AM Documents on File Type Date Recorded Patient Desktop Technician Expl anation Advance Directives and Livin g Will 2020 10:32 AM Documents on File Type Date Recorded Patient Desktop Technician Expl anation Advance Directives and Livin g Will 2020 10:32 AM Documents on File Type Date Recorded Patient Desktop Technician Marci dahl Advance Directives and Radames finney Will 09/04/2019 8:30 AM Summary Purpose Family [...] pollen counts are high. Use a vacuum frame cleaner with aHEPA filter or a double-thickness [...] call 911, even if you feel better. [id number] if: You have symptoms of a severe [...] Log into your personal health record on [email or web address] and enter W171 in the Education box to learn more about Allergies: Care Instructions. Current as of: July 28, 2019 Content Version: 12.5 1312-7630 [employer]. Care instructions adapted under license by your healthcare professional. If you have questions about a medical condition or this instruction, always ask your healthcare professional. [employer] disclaims any warranty or liability for your use of this information. documented in this encounter Reason for Referral Status Reason Specialty Diagnoses / Procedures Referred By Contact Referred To Contact New Request Radiology Diagnoses Recurrent sinusitis Procedures CT Sinus [facility] [address] [place] [address] Specialty Diagnoses / Procedures Referred By Contалександр t Referred To Contact Physical Therapy Diagnoses Acute pain of right knee Artificial knee joint present, left Procedures [facility] OFFICE/OUTPATIENT [facility] 60 MINUTES Melva Grimaldo, DO [address] [place] [address] [facility] PT/OT/AUD/SPEECH [address] [address] Referral ID Status Reason Start Date Expiration Date Visits Requested Visits Authorized [id number] Authorized Specialty Services Required 07/10/2024 01/06/2025 1 1 Additional Source Comments Reason for Visit (unrecogniz ed section and content) Reason Comments Pain ANKLE AND FOOT PAIN Pain Reason Comments Follow-up F/U LT CHARCOT FOOT WITH NEUROPATHY-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 Pain Reason Comments Follow-up LT FOOT CHARCOT FOOT W/ NEUROPATHY Follow-up Reason Comments Acute recurrent frontal sinusitis Status Reason Specialty Diagnoses / Procedures Referred By Contact Referred To Contact Closed Otolaryngology Diagnoses Acute recurrent frontal sinusitis Mara Beverly MD [address] [place] [address] Javier Fischer MD [address] [facility] [address] [place] [address] Status Reason Specialty Diagnoses / Procedures Re ferred By Contact Referred To Contact Diagnoses Charcot's joint of left foot Procedures VR Epidural Steroid Inj-B/L TALONAVICULAR AND CALCANEOCUBOID JOINT INJECTION Senait Ochoa MD [address] [place] [address] Reason Comments PT Initial Evaluation charcot foot Status Reason Specialty Diagnoses / Procedures Referred By Contact Referred To Contact Closed Specialty Services Required/Patie nt's Best Interest Interventional Radiology / Cardiology Diagnoses Charcot's joint of left foot Neuropathy, idiopathic Pain Exten, Carlos Gerber MD [address] [place] [address] Senait Ochoa MD [address] [place] [id number] Reason Comments Follow-up LT CHARCOT FOOT WITH NEUROPATHY -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 DATE CREATED AUTHOR AUTHOR'S ORGANIZ ATION 08/13/2020 [facility] DATE CREATED AUTHOR AUTHOR'S ORGANIZ ATION 08/14/2020 [facility] DATE CREATED AUTHOR AUTHOR'S ORGANIZ ATION 05/09/2022 [facility] DATE CREATED AUTHOR AUTHOR'S ORGANIZ ATION 12/29/2022 [facility] DATE CREATED AUTHOR AUTHOR'S ORGANIZ ATION 03/25/2024 [facility] DATE CREATED AUTHOR AUTHOR'S ORGANIZ ATION 04/15/2024 [facility] DATE CREATED AUTHOR AUTHOR'S ORGANIZ ATION 05/16/2024 [facility] DATE CREATED AUTHOR AUTHOR'S ORGANIZ ATION 08/21/2024 [facility] DATE CREATED AUTHOR AUTHOR'S ORGANIZ ATION 08/23/2024 [facility] DATE CREATED AUTHOR AUTHOR'S ORGANIZ ATION 09/05/2024 [facility] DATE CREATED AUTHOR AUTHOR'S ORGANIZ ATION 11/07/2024 Sandip Gomez [facility] DATE CREATED AUTHOR AUTHOR'S ORGANIZ ATION 11/22/2024 [facility] EPIC Assessment & Plan Note - Senait Ochoa [...] Care Team (unrecognized sect ion and content) Home Health Caregiver Relationship Specialty Start Date End Date Mara Beverly MD [address] [place] [phone] PCP - General 03/14/23 Home Health Caregiver Relationship Specialty Start Date End Date Mara Beverly MD [address] [place] [phone] PCP - General 03/14/23 Team Status: Inactive Member Role Status Dates Julio Johnson DPM MS Attending Provider Active Start: September 02, 2024 End: September 02, 2024 Home Health Caregiver Relationship Specialty Start Date End Date Mara Beverly MD [address] [place] [phone] PCP - General 03/14/23 Home Health Caregiver Relationship Specialty Start Date End Date Mara Beverly MD [address] [place] [address] PCP - General 03/14/23 Home Health Caregiver Relationship Specialty Start Date End Date Mara Beverly MD [address] [place] [address] PCP - General 03/14/23 Goals (unrecognized section [...] BE BASED ON THE PRIMARY CLINICAL RECORDS. [facility] [employer] provides no warranty or guarantee of the accuracy or completeness of information in this document.
== END 2024-12-10 08:08 | disposition home or self-care (01) ==
PROVIDERS: Visit Provider Podiatrist Foot & Ankle Surgery
DX: M79.671 Pain in right foot (principal); M79.672 Pain in left foot; M24.675 Ankylosis, left foot; M24.674 Ankylosis, right foot
CPT/HCPCS: 73630

== ENCOUNTER 2024-12-17 08:40 | Outpatient (OUT) | payer OTHER, SELFPAY ==
--- NOTE | 2024-12-17 08:53 | CT_ITS ---
The [address] [address] Patient Name: LEVI SOFIA MRN: [id number] date: 1960 Sex: F Assigned Patient Location: CT Current Patient Location: CT Accession/Order Number: [id number] Exam Date: 12/17/2024 17:47 Report Date: 12/17/2024 17:53 At the request of: CHRISTOPHER WILBURN Procedure: CT ankle RT wo con CT ankle RT wo con 12/17/2024 9:13 AM SIGNS AND SYMPTOMS: Follow-up Charcot pathology of the right foot and ankle TECHNIQUE: Multidetector CT axial slices of the right ankle without IV contrast. Multiplanar reformats were performed and viewed on a separate workstation and reviewed to further define anatomy and possible pathology. CT was performed with one or more of the following dose reduction techniques: Automated exposure control, adjustment of the mA and/or kV according to patient size, or use of iterative reconstruction technique. COMPARISON: 04/09/2024 FINDINGS: Extensive degenerative changes are noted across the subtalar joints across the talonavicular joint with partial collapse of the navicular, at the calcaneocuboid joint space, and at the tarsometatarsal junctions similar to the prior study. There is flattening of the arch of the foot. There has been interval hardware fixation across the subtalar joints and between the anterior talus and base of the first metatarsal. Fusion remains incomplete. Extensive periarticular calcification and bony fragmentation is noted throughout the hindfoot midfoot junction consistent with Charcot pathology. There is mild narrowing of the tibiotalar joint space with subcortical cystic change along both sides of the joint space. There is plantar and Achilles surface calcaneal spurring. There is diffuse soft tissue swelling. CT/CT ankle RT wo con IMPRESSION: Findings are consistent with Charcot pathology of the hindfoot midfoot junction similar to the prior exam. Lesser degrees of degenerative changes are noted along the tibiotalar joint space. There is interval hardware fixation across the subtalar joints and between the anterior talus and base of the first metatarsal without hardware complication. Diffuse soft tissue swelling is noted suspicious for cellulitis. Impression dictated by: Cody Arenas M.D.12/17/2024 5:53 PM Dictation Location: [place] [address] Electronically authenticated by: [id number] Y Date: 12/17/2024 17:53
--- OUTSIDE RECORDS SUMMARY | 2024-12-17 09:02 | XMS_ITS | CCD ---
Author Organization [facility] Care Team Providers Care Intelligence Research Specialist Name Role Phone Mara Beverly Primary Care Provider [phone] SYSTEM, PROVIDER NOT IN Attending Unavaila ble SYSTEM, PROVIDER NOT IN Referring Unavaila ble PANDA BEVERLYER R Primary Care Unavailable SYSTEM, PROVIDER NOT IN Attending Unavaila ble SYSTEM, PROVIDER NOT IN Referring Unavaila ble SIRIA CHRISTOPHER R Primary Care Unavailable Brown Christopher R Primary Care Provider [phone] Mara Beverly Primary Care Provider Senait Ochoa Unavailable EXTENCARLOS Attending Unavailable BROWN, CHRISTOPHER R Primary Care Unavailable EXTEN, CARLOS GERBER Attending Unavailable BROWN, CHRISTOPHER R Primary Care Unavailable PRYKHOJAVIER HAWTHORNE Attending U navailable BROWN, CHRISTOPHER R Primary Care Unavailable EXTEN, CARLOS GERBER Attending Unavailable BROWN, CHRISTOPHER R Primary Care Unavailable BROWN, CHRISTOPHER R Admitting Unavailable LIVESTOCK FEEDERJASPREET CAMPBELL Attending Unavailab le BROWN, CHRISTOPHER R Referring Unavailable BROWN, CHRISTOPHER R Primary Care Unavailable LIVESTOCK FEEDERJASPREET CAMPBELL Attending Unavailab le BROWN, CHRISTOPHER R [...] Admitting Unavailable BROWN, Christopher Attending Unavailable Yuniel Ocasio Attending Unavailable EMELYN POLK Attending Unavailable SIRIA, Christopher Attending Unavailable Albino BEVERLYopher Admitting Unavailable Mara Beverly MD Primary Care Provider [phone] BROWN, Christopher Attending Unavailable BROWN, Christopher Attending [...] Clavulanate; Translations: [AMOXICILLIN-POT CLAVULANATE] Drug Allergy 3 [facility] (20 sources) Chlorzoxazone; Translations: [CHLORZOXAZONE] Drug Allergy 9 [facility] (20 sources) moxifloxacin; Translations: [MOXIFLOXACIN] Drug Allergy 9 [facility] (20 sources) Penicillins; Translations: [PENICILLINS] Propensity to adverse reactions to drug 7 [facility] (20 sources) Penicillin; Translations: [penicillin] Drug Allergy [facility] Comment on above: Tolerated ceftriaxon e during 12/2017 admission (20 sources) Penicillin V; Translations: [penicillin V potassium] Drug Allergy Unknown (qualifier value) [facility] (5 sources) Amoxicillin / Clavulanate; Translations: [Augmentin] Drug Allergy [facility] (1 source) moxifloxacin Drug Allergy [facility] (5 sources) Penicillin; Translations: [penicillin] Drug Allergy [facility] (1 source) Parafon Forte Drug allergy (disorder) [facility] (4 sources) moxifloxacin; Translations: [Avelox] Drug Allergy [facility] (4 sources) Antibiotic; Translations: [Antibiotic] Propensity to adverse reactions (disorder) [facility] (4 sources) Parafon Forte DSC; Translations: [Parafon Forte DSC] Propensity to adverse reactions (disorder) [facility] (7 sources) Chlorzoxazone Drug Allergy 9 Unknown [facility] Medications Current Medications Medication Drug Class(es) Dates Sig (Normalized) Sig (Original) [id number] 200 actuat albuterol 0.09 mg/actuat metered dose [...] wheezing, 25 EA, Refill(s) 0, dx. J45.41, [facility], 179, cm, 09/27/22 13:30:00 EST, Height/Length Dosing, 130, kg, 09/27/22 13:30:00 EST, Weight Dosing Start Date: 09/28/22 Status: Ordered Start: 08-09-2022 take 1 dose by inhal ation every six hours ProAir HFA 90 mcg/inh inhalation aerosol 2 puff(s), Inhalation, q6hr for wheezing, 1 EA, Refill(s) 1, [facility] #[facility], 179, cm, 06/28/22 9:21:00 EDT, [...] q6hr for wheezing, 1 EA, Refill(s) 1, [facility], 178, cm, 07/11/21 10:05:00 EDT, Height/Length Dosing, 127, kg, 07/11/21 10:05:00 EDT, Weight Dosing Start Date: 07/11/21 Status: Ordered Start: 08-05-2019 take 2.5 mg by inhal ation every six hours for wheezing albuterol 0.083% Inh Mamie 3 mL 2.5 mg, 3 mL, Inhalation, q6hr for wheezing, 25 EA, Refill(s) 0, [facility] Start Date: 08/05/19 Status: Ordered Start: 08-05-2019 take 2.5 mg by inhal ation every six hours for wheezing albuterol 0.083% Inh Mamie 3 mL 2.5 mg, 3 mL, Inhalation, q6hr for wheezing, 25 EA, Refill(s) 0, [facility] Start Date: 08/05/19 Status: Ordered [...] day(s), # 30 tab(s), Refills(s) 0, Pharmacy: [facility], 177, cm, 05/16/23 13:32:00 EDT, Height/Length [...] bedtime), # 90 tab(s), Refills(s) 1, Pharmacy: [facility], 179, cm, 09/27/22 13:30:00 EST, Height/Length Dosing, 130, kg, 09/27/22 13:30:00 EST, Weight Dosing Start Date: 01/12/23 Status: Ordered Start: 08-03-2022 take 1 tablet by brendan th once daily at bedtime atorvastatin 20 mg Tab 20 mg = 1 tab(s), Oral, Once a day (at bedtime), # 90 tab(s), Refills(s) 1, Pharmacy: [facility], 179, cm, 06/28/22 9:21:00 EDT, Height/Length Dosing, 129, kg, 06/28/22 9:21:00 EDT, Weight Dosing Start Date: 08/03/22 Status: Ordered Start: 01-25-2022 take 1 tablet by brendan th once daily at bedtime atorvastatin 20 mg Tab 20 mg = 1 tab(s), Oral, Once a day (at bedtime), # 90 tab(s), Refills(s) 1, Pharmacy: [facility] #[id number], 178, cm, 12/22/21 10:58:00 EST, Height/Length Dosing, [...] day(s), # 6 tab(s), Refills(s) 0, Pharmacy: [facility], 177, cm, 03/10/24 18:16:00 EDT, Height/Length [...] tab(s), Oral, Daily, 90 tab(s), Refill(s) 1, [facility] #[id number], 178, cm, 12/22/21 10:58:00 EST, Height/Length Dosing, [...] oral solution (6 sources) alpha-Adrenergic Agonist, Uncompetitive Y-zbxmvt-B-aspartate Receptor Antagonist, Sigma-1 Agonist Start: 03-25-2024 take 5 mL by mouth four times daily for cough and congestion Bromfed DM oral syrup 5 mL, Oral, QID for cough and congestion, 200 mL, Refill(s) 0, [facility], 177, cm, 03/24/24 22:52:00 EDT, Height/Length [...] day(s), # 20 cap(s), Refills(s) 0, Pharmacy: [facility], 177, cm, 03/21/24 14:44:00 EDT, Height/Length [...] Daily, # 90 tab(s), Refills(s) 3, Pharmacy: [facility], 177, cm, 04/08/24 13:20:00 EDT, Height/Length Dosing, 125.7, kg, 04/08/24 13:18:00 EDT, Weight Dosing Start Date: 05/01/24 Status: Ordered clindamycin 300 mg oral capsule (8 sources) Lincosamide Antibacterial Start: 04-02-2024 End: 04-12-2024 take 1 capsule by mouth every six hours clindamycin 300 mg oral cap 300 mg = 1 cap(s), Oral, q6hr, X 10 day(s), # 40 cap(s), Refills(s) 0, [id number], 177, cm, 03/24/24 22:52:00 EDT, Height/Length Dosing, [...] BID, # 20 cap(s), Refills(s) 0, Pharmacy: [facility], 177, cm, 05/16/23 13:32:00 EDT, Height/Length Dosing, 127, kg, 05/16/23 13:31:00 EDT, Weight Dosing Start Date: 05/16/23 Status: Ordered doxycycline hyclate 100 mg oral capsule (3 sources) Tetracycline- class Drug Start: 10-17-2023 take 1 capsule by mouth twice daily doxycycline hyclate 100 mg Cap 100 mg = 1 cap(s), Oral, BID, # 20 cap(s), Refills(s) 0, Pharmacy: [facility], 178, cm, 10/17/23 14:51:00 EST, Height/Length Dosing, 127, kg, 10/17/23 14:51:00 EST, Weight Dosing Start Date: 10/17/23 Status: Ordered Start: 01-19-2023 End: 01-26-2023 take 1 capsule by mouth twice daily doxycycline hyclate 100 mg Cap 100 mg = 1 cap(s), Oral, BID, X 7 day(s), # 14 cap(s), Refills(s) 0, Pharmacy: [facility], 179, cm, 01/19/23 16:50:00 EDT, Height/Length [...] Daily, # 90 cap(s), Refills(s) 3, Pharmacy: [facility], 177, cm, 12/10/23 18:47:00 EST, Height/Length Dosing, 124, kg, 12/10/23 18:47:00 EST, Weight Dosing Start Date: 02/13/24 Status: Ordered DULoxetine 30 mg Cap-EC (1 source) Start: 01-25-2022 take 1 capsule by mouth once daily DULoxetine 30 mg Cap-EC 30 mg = 1 cap(s), Oral, Daily, # 90 cap(s), Refills(s) 1, Pharmacy: [facility] #[id number], 178, cm, 12/22/21 10:58:00 EST, Height/Length Dosing, 127.4, kg, 12/22/21 10:58:00 EST, Weight Dosing Start Date: 01/25/22 Status: Ordered 168 hr estradiol 0.67391 mg/hr transdermal system (20 sources) Estrogen estradiol [...] 1 EA, Refill(s) 11, 30 dose unit, [facility], 177, cm, 05/16/23 13:32:00 EDT, Height/Length [...] DAY, # 90 tab(s), Refills(s) 4, Pharmacy: [facility], 177, cm, 05/12/24 19:05:00 EDT, Height/Length Dosing, 125, kg, 05/12/24 18:58:00 EDT, Weight Dosing Start Date: 07/30/24 Status: Ordered Start: 01-25-2022 take 1 tablet by brendan th once daily levothyroxine 137 mcg (0.137 mg) Tab 137 microgram = 1 tab(s), Oral, Daily, # 90 tab(s), Refills(s) 1, Pharmacy: [facility] #[id number], 178, cm, 12/22/21 10:58:00 EST, Height/Length Dosing, [...] BID, # 180 tab(s), Refills(s) 3, Pharmacy: [facility], 179, cm, 08/12/22 12:43:00 EDT, Height/Length Dosing, 129, kg, 08/12/22 12:43:00 EDT, Weight Dosing Start Date: 08/17/22 Status: Ordered Start: 08-07-2022 take 1 tablet by brendan twice daily losartan 50 mg Tab 50 mg = 1 tab(s), Oral, BID, # 60 tab(s), Refills(s) 5, Pharmacy: [facility] #[id number], 179, cm, 06/28/22 9:21:00 EDT, Height/Length Dosing, 129, kg, 06/28/22 9:21:00 EDT, Weight Dosing Start Date: 08/07/22 Status: Ordered Start: 07-19-2022 take 1 tablet by [facility] once daily losartan 50 mg Tab 50 mg = 1 tab(s), Oral, Daily, # 30 tab(s), Refills(s) 5, Pharmacy: [facility] #[id number], 179, cm, 06/28/22 9:21:00 EDT, Height/Length Dosing, 129, kg, 06/28/22 9:21:00 EDT, Weight Dosing Start Date: 07/19/22 Status: Ordered Start: 06-28-2022 take 1 tablet by [facility] once daily losartan 25 mg Tab 25 mg = 1 tab(s), Oral, Daily, # 30 tab(s), Refills(s) 5, Pharmacy: [facility], 179, cm, 06/28/22 9:21:00 EDT, Height/Length Dosing, 129, kg, 06/28/22 9:21:00 EDT, Weight Dosing Start Date: 06/28/22 Status: Ordered methylPREDNISolone 4 mg oral tablet (8 sources) Corticosteroid Start: 03-18-2024 End: 03-24-2024 Medrol Dosepack 4 mg Tab = 1 packet(s), Oral, As Directed, as directed on package labeling, X 6 day(s), # 21 tab(s), Refills(s) 0, Pharmacy: [facility], 177, cm, 03/10/24 18:16:00 EDT, Height/Length [...] qPM, # 90 tab(s), Refills(s) 1, Pharmacy: [facility] #[id number], 178, cm, 12/22/21 10:58:00 EST, Height/Length Dosing, [...] 0, use with medication for inhalaiton dx.J45.41, [facility], Supply, 179, cm, 09/27/22 13:30:00 EST, Height/Length Dosing, 130, kg, 09/27/22 13:30:00 EST, Weight Dosing Start Date: 09/28/22 Status: Ordered Nebulizer machine tubing/ kit (18 sources) Start: 09-28-2022 Nebulizer mach ine tubing/ kit Nebulizer machine tubing/ kit, See Instructions, 1 EA, 0, use with nebulizer medication dx. J45.41, [facility] #[facility], [facility], 179, cm, 09/27/22 13:30:00 [...] Active Start: 07-13-2022 take 1 capsule by [facility] once daily omeprazole 20 mg Cap-DR 20 mg = 1 cap(s), Oral, Daily, # 90 cap(s), Refills(s) 1, Pharmacy: [facility], 179, cm, 06/28/22 9:21:00 EDT, Height/Length Dosing, 129, kg, 06/28/22 9:21:00 EDT, Weight Dosing Start Date: 07/13/22 Status: Ordered Start: 03-27-2022 take 1 capsule by [facility] once daily omeprazole 20 mg Cap-DR 20 mg = 1 cap(s), Oral, Daily, # 90 cap(s), Refills(s) 1, Pharmacy: [facility] #[id number], 178, cm, 03/14/22 10:26:00 EDT, Height/Length Dosing, 126.9, kg, 03/14/22 10:26:00 EDT, Weight Dosing Start Date: 03/27/22 Status: Ordered take 1 capsule by [facility] once daily omeprazole (PRILOSEC) 20 MG capsule Take 20 mg by mouth daily . 0 Active omeprazole 20 mg Cap-DR (2 sources) Start: 10-13-2021 take 1 capsule by mouth once daily omeprazole 20 mg Cap-DR 20 mg = 1 cap(s), Oral, Daily, # 90 cap(s), Refills(s) 1, [id number], [facility], cm, 09/13/21 10:38:00 EST, Height/Length Dosing, 130.6, kg, 09/13/21 10:28:00 EST, Weight Dosing Start Date: 10/13/21 Status: Ordered 24 hr oxybutynin chloride 15 mg extended release oral tablet (20 sources) Cholinergic Muscarinic Antagonist Start: 05-28-2024 take 1 tablet by mouth once daily oxybutynin 15 mg ER Tab 15 mg = 1 tab(s), Oral, Daily, # 90 tab(s), Refills(s) 4, Pharmacy: [facility], 177, cm, 05/12/24 19:05:00 EDT, Height/Length Dosing, 125, kg, 05/12/24 18:58:00 EDT, Weight Dosing Start Date: 05/28/24 Status: Ordered Start: 10-10-2023 take 1 tablet by brendan once daily oxybutynin 15 mg ER Tab 15 mg = 1 tab(s), Oral, Daily, # 90 tab(s), Refills(s) 1, Pharmacy: [facility], 177, cm, 05/16/23 13:32:00 EDT, Height/Length Dosing, 127, kg, 05/16/23 13:31:00 EDT, Weight Dosing Start Date: 10/10/23 Status: Ordered Start: 05-01-2023 oxybutynin XL (Ditropan-XL) 15 MG 24 hr tablet 05/01/2023 Active Start: 12-20-2022 take 1 tablet by brendan once daily oxybutynin 15 mg ER Tab 15 mg = 1 tab(s), Oral, Daily, # 90 tab(s), Refills(s) 1, Pharmacy: [facility], 179, cm, 09/27/22 13:30:00 EST, Height/Length Dosing, 130, kg, 09/27/22 13:30:00 EST, Weight Dosing Start Date: 12/20/22 Status: Ordered Start: 04-17-2022 take 1 tablet by brendan once daily oxybutynin 15 mg ER Tab 15 mg = 1 tab(s), Oral, Daily, # 90 tab(s), Refills(s) 1, Pharmacy: [facility] #[id number], 178, cm, 03/14/22 10:26:00 EDT, Height/Length Dosing, 126.9, kg, 03/14/22 10:26:00 EDT, Weight Dosing Start Date: 04/17/22 Status: Ordered Start: 01-11-2022 take 1 tablet by brendan once daily oxybutynin 15 mg ER Tab 15 mg = 1 tab(s), Oral, Daily, # 90 tab(s), Refills(s) 1, Pharmacy: [facility] #[id number], 178, cm, 12/22/21 10:58:00 EST, Height/Length Dosing, [...] Daily, # 90 tab(s), Refills(s) 1, Pharmacy: [facility], 179, cm, 05/18/22 15:39:00 EDT, Height/Length Dosing, 129, kg, 05/18/22 15:39:00 EDT, Weight Dosing Start Date: 06/23/22 Status: Ordered permethrin 50 mg/ml topical cream (12 sources) Pyrethroid Start: 04-08-2024 permethrin (Elimite) 5 % cream apply topically once as directed 04/08/2024 Active Start: 04-08-2024 permethrin Top 5% Crm 1 [place], Topical, Once, 60 gram, Refill(s) 0, [facility], 177, cm, 04/08/24 13:20:00 EDT, Height/Length Dosing, 125.7, kg, 04/08/24 13:18:00 EDT, Weight Dosing Start Date: 04/08/24 Status: Ordered predniSONE 20 mg oral tablet (3 sources) Start: 03-07-2024 End: 03-14-2024 take 2 tablets by mouth once daily predniSONE 20 mg Tab 40 mg = 2 tab(s), Oral, Daily, X 7 day(s), # 14 tab(s), Refills(s) 0, Pharmacy: [facility], 177, cm, 12/10/23 18:47:00 EST, Height/Length [...] days, # 12 tab(s), Refills(s) 0, Pharmacy: [facility], 179, cm, 08/12/22 12:43:00 EDT, Height/Length [...] DAILY, # 180 cap(s), Refills(s) 4, Pharmacy: [facility], 177, cm, 05/12/24 19:05:00 EDT, Height/Length Dosing, 125, kg, 05/12/24 18:58:00 EDT, Weight Dosing Start Date: 07/02/24 Status: Ordered Start: 12-31-2023 take 1 capsule by [facility] twice daily propranolol 80 mg Cap-ER 80 mg = 1 cap(s), Oral, BID, # 180 cap(s), Refills(s) 1, Pharmacy: [facility], 177, cm, 12/10/23 18:47:00 EST, Height/Length Dosing, 124, kg, 12/10/23 18:47:00 EST, Weight Dosing Start Date: 12/31/23 Status: Ordered Start: 06-18-2023 take 1 capsule by [facility] twice daily propranolol 80 mg Cap-ER 80 mg = 1 cap(s), Oral, BID, # 180 cap(s), Refills(s) 1, Pharmacy: [facility], 177, cm, 05/16/23 13:32:00 EDT, Height/Length Dosing, 127, kg, 05/16/23 13:31:00 EDT, Weight Dosing Start Date: 06/18/23 Status: Ordered Start: 05-01-2023 propranolol LA (Inderal LA) 80 MG 24 hr capsule 05/01/2023 Active Start: 12-20-2022 take 1 capsule by [facility] twice daily propranolol 80 mg Cap-ER 80 mg = 1 cap(s), Oral, BID, # 180 cap(s), Refills(s) 1, Pharmacy: [facility], 179, cm, 09/27/22 13:30:00 EST, Height/Length Dosing, 130, kg, 09/27/22 13:30:00 EST, Weight Dosing Start Date: 12/20/22 Status: Ordered Start: 07-13-2022 take 1 capsule by [facility] twice daily propranolol 80 mg Cap-ER 80 mg = 1 cap(s), Oral, BID, # 60 cap(s), Refills(s) 5, Pharmacy: [facility], 179, cm, 06/28/22 9:21:00 EDT, Height/Length Dosing, 129, kg, 06/28/22 9:21:00 EDT, Weight Dosing Start Date: 07/13/22 Status: Ordered Start: 04-11-2022 take 1 capsule by [facility] twice daily propranolol 80 mg Cap-ER 80 mg = 1 cap(s), Oral, BID, # 180 cap(s), Refills(s) 1, Pharmacy: [facility] #[id number], 178, cm, 03/14/22 10:26:00 EDT, Height/Length Dosing, 126.9, kg, 03/14/22 10:26:00 EDT, Weight Dosing Start Date: 04/11/22 Status: Ordered Start: 04-11-2022 take 1 capsule by [facility] once daily propranolol 80 mg Cap-ER 80 mg = 1 cap(s), Oral, Daily, # 90 cap(s), Refills(s) 1, Pharmacy: [facility] #[id number], 178, cm, 03/14/22 10:26:00 EDT, Height/Length Dosing, 126.9, kg, 03/14/22 10:26:00 EDT, Weight Dosing Start Date: 04/11/22 Status: Ordered sulfamethoxazole 800 mg / trimethoprim 160 mg oral tablet (5 sources) Dihydrofolate Reductase Inhibitor Antibacterial, Sulfonamide Antimicrobial Start: 05-16-2023 End: 05-31-2023 Bactrim D.S. 800 mg-160 mg Tab 1 tab(s), Oral, BID for 14 day(s), 28 tab(s), Refill(s) 0, [facility], 177, cm, 05/16/23 13:32:00 EDT, Height/Length [...] relief, # 9 tab(s), Refills(s) 3, Pharmacy: [facility], 177, cm, 12/10/23 18:47:00 EST, Height/Length [...] relief, # 9 tab(s), Refills(s) 0, Pharmacy: [facility], 179, cm, 01/19/23 16:50:00 EDT, Height/Length [...] puff(s), Inhalation, BID, 3 EA, Refill(s) 1, [facility], 178, cm, 07/11/21 10:05:00 EDT, [...] 0, 1-2 po q 4 prn pain, [facility], 177, cm, 05/16/23 13:32:00 EDT, Height/Length Dosing, 127, kg, 05/16/23 13:31:00 EDT, Weight Dosing Start Date: 05/16/23 Status: Ordered Start: 03-29-2023 take 1-2 tablets by mouth every four hours as needed for pain Percocet 5 mg-325 mg oral tablet See Instructions, 50 tab(s), Refill(s) 0, Take one to two every 4 hours as needed for pain., [facility], 177, cm, 05/16/23 13:32:00 EDT, Height/Length Dosing, 127, kg, 05/16/23 13:31:00 EDT, Weight Dosing Start Date: 05/17/23 Status: Ordered betamethasone 3 mg/ml / betamethasone acetate 3 mg/ml injectable suspension (4 sources) Corticosteroid Start: 11-20-2024 End: 11-20-2024 betamethasone acetate-betamethasone sodium phosphate (Celestone) injection 5 mg Start: 11-20-2024 End: 11-20-2024 5 mg, Intra-articular, Once PRN Procedure, Starting on [facility] 11/20/24 at 0923, For 1 dose [...] once, # 1 tab(s), Refills(s) 0, Pharmacy: [facility] #[id number], 177, cm, 03/24/24 22:52:00 EDT, Height/Length Dosing, 128, kg, 03/24/24 22:52:00 EDT, Weight Dosing Start Date: 04/02/24 Status: Ordered Start: 03-24-2024 take 1 tablet by mouth once fl uconazole 150 mg Tab 150 mg = 1 tab(s), Oral, Once, one tab to be taken once, # 1 tab(s), Refills(s) 0, Pharmacy: [facility]37, 177, cm, 03/21/24 14:44:00 EDT, Height/Length [...] needed, # 2 tab(s), Refills(s) 0, Pharmacy: [facility] #37, 179, cm, 01/19/23 16:50:00 EDT, Height/Length Dosing, 133.5, kg, 01/19/23 16:50:00 EDT, Weight Dosing Start Date: 01/19/23 Status: Ordered Start: 12-22-2021 take 1 tablet by mouth once fl uconazole 150 mg Tab 150 mg = 1 tab(s), Oral, Once, # 1 tab(s), Refills(s) 1, Pharmacy: [facility] #[id number], 178, cm, 12/22/21 10:58:00 EST, Height/Length Dosing, [...] Daily, 3 EA, Refill(s) 1, [facility] #[id number], 178, cm, 12/16/20 10:55:00 EST, Height/Length Dosing, 125, kg, 12/16/20 10:55:00 EST, Weight Dosing Start Date: 01/25/21 Status: Ordered ProAir HFA 90 mcg/inh inhalation aerosol (8 sources) Start: 08-09-2022 take 1 dose by inhalation every six hours ProAir HFA 90 mcg/inh inhalation aerosol 2 puff(s), Inhalation, q6hr for wheezing, 1 EA, Refill(s) 1, [facility], 179, cm, 06/28/22 9:21:00 EDT, Height/Length Dosing, 129, kg, 06/28/22 9:21:00 EDT, Weight Dosing Start Date: 08/09/22 Status: Ordered Start: 07-11-2021 take 2 puff(s) by in halation every six hours for wheezing ProAir HFA 90 mcg/inh inhalation aerosol 2 puff(s), Inhalation, q6hr for wheezing, 1 EA, Refill(s) 1, [facility], 178, cm, 07/11/21 10:05:00 EDT, Height/Length Dosing, 127, kg, 07/11/21 10:05:00 EDT, Weight Dosing Start Date: 07/11/21 Status: Ordered triamcinolone acetonide 0.055 mg/actuat metered dose nasal spray (20 sources) Corticosteroid Start: 01-25-2021 Nasacort Aller gy 24HR nasal spray 110 mcg, 2 spray(s), Nasal, Daily, 3 EA, Refill(s) 1, [facility] #[id number], 178, cm, 12/16/20 10:55:00 EST, Height/Length Dosing, [...] complications Consent was given by the patient. [facility]20 [facility] Case Information Case Priority: None Programs: -- Referral Source: Senior Enterprise Architect Referral Reason: Care coordination Case Type: Transition [...] propionate hyd (more content not included)... Normal [facility] 10-13-20 [facility] Case Information Case Priority: None Programs: -- Referral Source: Senior Enterprise Architect Referral Reason: Care coordination Case Type: Transition [...] propionate hyd (more content not included)... Normal [facility] 10-06-20 [facility] Case Information Case Priority: None Programs: -- Referral Source: Senior Enterprise Architect Referral Reason: Care coordination Case Type: Transition [...] propionate hyd (more content not included)... Normal [facility] Reminderson 10-01-2024 Reminders Reminders -- From: Joann Hinton R.N. To: [facility]; Joann Hinton R.N.; Sent: 10/01/2024 06:35:05 EST Show up: 10/01/2024 06:35:00 EST Subject: carlos #2 Due Date/Time: 10/07/2024 06:35:00 EST Reminder/Recall Normal [facility] Ambulatory Visit Summaryon 1 12-01-2023 Ambulatory Visit [...] AM EDT With: Mara BEVERLY MD Where: [facility] [address] [place] [address]- 2024 11:00 AM EDT With: Where: [facility] [address] [place] [address]- You Need to Schedule the Following Appointments Follow Up with Mara BEVERLY MD, FAM When: Comments: see me in February Where: [address] [place] [address]- Medications What How Much When Instructions Unchanged [...] citalopram (c (more content not included)... Normal [facility] Family Medicine Office/Clini c Noteon 09-30-2024 Family Medicine Office/Clinic Note Family Medicine Office/Clinic Note Chief Complaint ere for follow up from [place], ankle surgery The patient presents for a hospitalization follow-up and general health maintenance. History of Present Illness The patient is a 64-year-old female presenting with a post-hospitalizatio n follow-up. She underwent Charcot foot surgery on September 02 at [facility] followed by rehabilitation at [facility] from September 04 to September 25. Reports [...] glucose monitoring was not conducted at the group home, her diabetes, complicated by diabetic polyneuropathy, remains controlled through diet. The patient reported impaired mobility primarily due to the surgical intervention, and she adapted using a wheelchair at home. Additionally, she experienced leg swelling and calf pain briefly post-discharge, which she attributed to increased activity. Constipation was a significant issue during her group home stay, having experienced just four bowel movements [...] - Gastrointestinal: Reports difficulty swallowing during the group home stay; reports leg swelling upon standing. - [...] -Use Moderatio (more content not included)... Normal [facility] Comment on above: Result Comment: Elec tronically Signed By: SIRIA ARMENTA, Mara\.christiana\Date and Time Signed: 09/30/24 19:10 EST Pathology study report docum entOrdered By: Javier Nixon on 09-05-2024 Pathology study [facility] Other Phone: Carl 09-02-2024 L Specimen: [id number] Received: 09/03/24 Status: FIDEL Devika Num: [id number] Spec Type: Surgical Subm Dr: Julio Johnson DPM, Tissues: A Bone Fragments - Other than Path Fracture (RIGHT FOOT BONE) Procedures: PATRICIA, Gross/Micro L3, Decalcification Age/ Patient Sex Location Account Attending Physician Levi Sofia 64/F LABELL [id number] Julio Johnson DPM, MS SPEC NUM: [id number] RECD: 09/03/24 STATUS: FIDEL CREWS NUM: [id number] GILBERT: 09/02/[address]: Julio Johnson DPM, MS ENTERED: 09/03/24 [facility] DR: Alex,Timmy SPEC TYPE: Surgical DEPT: ELDER BERRIOS ENTERED BY: [id number] RECV BY: [id number] ORDERED: HE, Gross/Micro L3, Decalcification ORDERED: HE, [...] reveal lazcano firm and uniform medullary bone. Digital Marketing Officer sections are submitted in a single cassette after decalcification. (1, , [id number] A) Microscopic Description Microscopic examination is performed. Specimen: [id number] Received: 09/03/24 Status: FIDEL Crews Num: [id number] Spec Type: Surgical Subm Dr: Julio Johnson,VILMA, [place] Tissues: A Bone Fragments - Other than Path Fracture (RIGHT FOOT BONE) Procedures: HE, Gross/Micro L3, Decalcification Patient: Levi Sofia [id number] (Continued) Specimen: [id number] Received: 09/03/24 (Continued) Signed (signatur e on file) Javier Nixon MD 09/05/24 1145 Specimen: [id number] Received: 09/03/24 Status: FIDEL Crews Num: [id number] Spec Type: Surgical Subm Dr: Julio Johnson,V[place], [place] Tissues: A Bone Fragments - Other than Path Fracture (RIGHT FOOT BONE) Procedures: PATRICIA, Gross/Micro L3, Decalcification Patient: Levi Sofia [id number] (Continued) Specimen: [id number] Received: 09/03/24 (Continued) CPT Codes 66192, 65926 Specimen: [id number] Received: 09/03/24 Status: FIDEL Salasaudie Num: [id number] Spec Type: Surgical Subm Dr: Julio Johnson,V[place]MA, [place] Tissues: A Bone Fragments - Other than Path Fracture (RIGHT FOOT BONE) Procedures: PATRICIA, Gross/Reno L3, Decalcification Patient: Levi Sofia [id number] (Continued) Signed (signatur e on file) Javier Nixon MD 09/05/24 1145 Normal [facility] Provider Letteron 08-21-2024 Provider Letter Provider Letter [address] [place] [address] [id number] August 21, 2024 LEVI SOFIA [address] [place] [address] : [address] Johnson: I appreciated [...] good response. I reviewed her laboratories from [facility] completed August 13. There is no [...] successful outcome. Sincerely: Mara Beverly MD,FAAFP Normal [facility] Ambulatory Visit Summaryon 1 Ambulatory Visit [...] MD, Christopher This Is Your Medications List [facility] Prescription (Nebulizer Machine) [facility] Prescription (Nebulizer machine tubing/ kit) albuterol (Albuterol [...] Follow-Up Appointments 2024 11:00 AM EDT Where: [facility] [place] [address] [place] [address]- You Need to Schedule the Following Appointments Follow Up with SIRIA ARMENTA, EVI Nicole When: Within 6 months Comments: staff call [facility] need her recent labs and EKG from 08/12/24 Where: [address] [place] [address]- Medications What How Much When Instructions Unchanged albuterol (Albuterol (Eqv-ProAir HFA) 90 mcg/ inh inhalation aerosol) 2 Puffs Inhalation Every 6 (more content not included)... Normal [facility] Ambulatory Visit Summary Ambulatory Visit Summary [...] Follow-Up Appointments 2024 11:00 AM EDT Where: [place] [address], [place] [id number]- You Need to Schedule the Following Appointments Follow Up with SIRIA ARMENTA, EVI Nicole When: Within 6 months Comments: staff call [facility] need her recent labs and EKG from 08/12/24 Where: [address] [place] [address]- Medications What How Much When Instructions Unchanged albuterol (Al (more content not included)... Normal [facility] Family Medicine Office/Clini c Noteon 08-19-2024 [...] thick but supple no obvious thyromegaly fair point lay ira dentition with repairs oropharynx pink and moist [...] pain. No obvious crepitance in the shoulder blue crabber strength is intact. Very stooped posture. Assessment/Plan 1. Annual visit for general adult medical examination without abnormal findings (Z00.00: Encounter for general adult medical examination without abnormal findings) Patient is up-to-date with all general health maintenance. She will obtain flu vaccine and Prevnar 20 at the pharmacy. Ordered: 1125F Pain severity quantified; pain present A1c POC 35072 Advance care planning discussion documented in the [...] previously bee (more content not included)... Normal [facility] Comment on above: Result Comment: Elec [...] any sensitivity (more content not included)... Normal [facility] Comment on above: Result Comment: Elec tronically Signed By: Mara BEVERLY MD\.br\Date and Time Signed: 08/19/24 16:34 EDT\.br\Electronically Co-Signed By: Amanda JEFFERSON, Andra Luis\.br\Date and Time Co-Signed: 08/19/24 16:15 EDT Nonvisit Note - PTon 024 Nonvisit Note - PT Nonvisit Note - PT woke up and is not feeling well [facility] XR Knee - left 3 [facility] [...] no fracture, dislocation, tumor or infection seen. [facility] XR Knee - right 3 [facility] Imaging [...] no fracture, dislocation, tumor or infection seen. [facility] Nonvisit Note - PTon 024 Nonvisit Note - PT Nonvisit Note - PT Chart reviewed with eval prepped for scheduled eval. KK Normal [facility] XR Knee - left 3 [facility] Radiology Study observation (narrative) [facility] XR Knee - right 3 [facility] Radiology Study observation (narrative) [facility] BD Bone Density DEXAon 05-18 [...] MD Transcribed by: HENRIETTA Technologist: NICK Normal [facility] MA Mamm Screen w/CAD if perf [...] VERY IMPORTANT TO YOUR HEALTH. THE CURRENT [employer]CER [...] Audie Cartagena MD Transcribed by: HENRIETTA Technologist: JEROMY Assessment: BI-RADS Category 1-Negative Recommendation: Normal interval follow-up Normal [facility] U Microalbon 05-13-2024 Albumin DL <= 20 mg/L (U) [Mass/Vol] 1.7 mg/dL Normal 0.0-1.9 [facility] Comment on above: Performed By: #### 1 [id number] #### [facility] [address] [place] [address] U Protein/Creat Ratioon 04-22 Protein/Creatinine (U) [Ratio] 9.40 mg/gm Cr Normal .00-200.00 [facility] Comment on above: Performed By: #### 1 [id number] #### [facility] [address] [place] [address] U Creatinine 139.0 mg/dL Invalid Interpretation Code [facility] Comment on above: Performed By: #### 1 [id number] #### [facility] [address] [place] [address] Ur Total Protein 13.1 mg/dL Invalid Interpretation Code [facility] Comment on above: Performed By: #### 1 [id number] #### [facility] [address] [place] [address] Ambulatory Visit Summaryon 0 05-12-2024 Ambulatory Visit [...] of [facility] Invalid Interpretation Code [address] [place] [address]- \.br\ Sunday 3:40 PM EDT \.br\ With: Mara BEVERLY MD\.br\ Where: [facility] Family Medicine [facility] Family Medicine Office/Clini c Noteon 05-12-2024 Family [...] or Leti with her renal insufficiency Or[place] [facility] [place] Ambulatory Referral 2. Type 2 diabetes mellitus with hyperlipidemia (E11.69: Type 2 diabetes mellitus with other specified complication) Continue current statin and must exercise great caution with dietary compliance. Dietary constraints reviewed to help reduce triglycerides Ordered: [facility] [place] Ambulatory Referral 3. Diabetes mellitus with renal manifestation (E11.29: Type 2 diabetes mellitus with other diabetic kidney complication) See #4 patient will set up diabetic eye exam. Ordered: [facility] [place] Ambulatory Referral 4. Chronic renal impairment, [...] 7. C (more content not included)... Normal [facility] Comment on above: Result Comment: Elec tronically Signed By: SIRIA ARMENTA, Mara\.br\Date and Time Signed: 05/12/24 20:23 EDT [id number] 04-15-2024 HbA1c (Bld) [Mass fraction] 6.6 % High <=5.9 [facility] Comment on above: Order Comment: Just spoke with laborer laboratory. Please add this test to blood drawn earlier today, thank you Performed By: #### 7 [id number] #### [facility] [address] [place] [address] Advance Beneficiary Notifica tionson 04-14-2024 Advance Beneficiary Notifications [id number]#1.00TIFF Normal [facility] CBC w/ Auto Diffon Basophils/100 WBC (Bld) 1.3 % Normal 0.0-2.0 [facility] Comment on above: Performed By: #### 2 [id number] #### [facility] [address] [place] [address] Basophils/Leukocyte s Auto (Bld) [Pure # fraction] 0.1 E9/L Normal 0.0-0.2 [facility] Comment on above: Performed By: #### 2 298152 #### [facility] [address] [place] [address] Eosinophils (Bld) [#/Vol] 0.2 E9/L Normal 0.0-0.5 [facility] Comment on above: Performed By: #### 2 460858 #### [facility] [address] [place] [address] Eosinophils/100 WBC (Bld) 3.8 % Normal 0.0-8.0 [facility] Comment on above: Performed By: #### 2 [id number] #### [facility] [address] [place] [address] Erythrocyte distribution width (RBC) [Ratio] 14.8 % High 10.9-14.2 [facility] Comment on above: Performed By: #### 2 573659 #### [facility] [address] [place] [address] Hematocrit (Bld) [Volume fraction] 39.9 % Normal 34.0-46.0 [facility] Comment on above: Performed By: #### 2 [id number] #### [facility] [address] [place] [address] Hemoglobin (Bld) [Mass/Vol] 13.7 g/dL Normal 12.0-16.0 [facility] Comment on above: Performed By: #### 2 222879 #### [facility] [address] [place] [address] Lymphocytes (Bld) [#/Vol] 2.1 E9/L Normal 1.0-4.0 [facility] Comment on above: Performed By: #### 2 846320 #### [facility] [address] [place] [address] Lymphocytes/100 WBC (Bld) 35.4 % Normal 14.0-50.0 [facility] Comment on above: Performed By: #### 2 415282 #### [facility] [address] [place] [address] MCH (RBC) [Entitic mass] 31.5 pg Normal 27.0-34.0 [facility] Comment on above: Performed By: #### 2 012055 #### [facility] [address] [place] [address] MCHC (RBC) [Mass/Vol] 34.2 g/dL Normal 31.4-36.0 [facility] Comment on above: Performed By: #### 2 012321 #### [facility] [address] [place] [address] MCV (RBC) [Entitic vol] 92.0 fL Normal 80.0-100.0 [facility] Comment on above: Performed By: #### 2 855338 #### [facility] [address] [place] [address] Monocytes (Bld) [#/Vol] 0.4 E9/L Normal 0.2-1.0 [facility] Comment on above: Performed By: #### 2 348739 #### [facility] [address] [place] [address] Neutrophils (Bld) [#/Vol] 3.0 E9/L Normal 2.0-7.5 [facility] Comment on above: Performed By: #### 2 [id number] #### [facility] [address] [place] [address] Neutrophils/100 WBC (Bld) 52.2 % Normal 36.0-75.0 [facility] Comment on above: Performed By: #### 2 554319 #### [facility] [address] [place] [address] Platelet 251.0 E9/L Normal 150.0-500.0 [facility] Comment on above: Performed By: #### 2 897137 #### [facility] [address] [place] [address] Platelet mean volume (Bld) [Entitic vol] 8.7 fL Normal 6.4-10.8 [facility] Comment on above: Performed By: #### 2 840521 #### [facility] [address] [place] [address] RBC (Bld) [#/Vol] 4.3 E12/L Normal 4.3-5.9 [facility] Comment on above: Performed By: #### 2 459142 #### [facility] [address] [place] [address] WBC corrected for nucl RBC Auto (Bld) [#/Vol] 5.8 E9/L Normal 4.0-11.0 [facility] Comment on above: Performed By: #### 2 203525 #### [facility] [address] [place] [address] CHEMISTRYOrdered By: SYSTEM SYSTEM on 04-14-2024 Albumin [...] 04-14-2024 Albumin [Mass/Vol] 4.2 g/dL Normal 3.3-5.0 [facility] Comment on above: Performed By: #### 2 [id number] #### [facility] [address] [place] [address] Albumin/Globulin (S) [Mass conc ratio] 1.4 Normal 1.1-2.2 [facility] Comment on above: Performed By: #### 2 276003 #### [facility] [address] [place] [address] ALP [Catalytic activity/Vol] 75 Int._Unit/L Normal 21-98 [facility] Comment on above: Performed By: #### 2 447874 #### [facility] [address] [place] [address] ALT No additional P-5'-P [Catalytic activity/Vol] 23 Int._Unit/L Normal 6-46 [facility] Comment on above: Performed By: #### 2 448460 #### [facility] [address] [place] [address] Anion gap [Moles/Vol] 13 mmol/L Normal 6-16 [facility] Comment on above: Performed By: #### 2 724468 #### [facility] [address] [place] [address] AST [Catalytic activity/Vol] 19 Int._Unit/L Normal 5-43 [facility] Comment on above: Performed By: #### 2 700768 #### [facility] [address] [place] [address] Bilirubin [Mass/Vol] 0.5 mg/dL Normal 0.0-1.1 [facility] Comment on above: Performed By: #### 2 448185 #### [facility] [address] [place] [address] Calcium [Mass/Vol] 10.0 mg/dL Normal 8.9-11.1 [facility] Comment on above: Performed By: #### 2 695876 #### [facility] [address] [place] [address] Chloride [Moles/Vol] 105 mmol/L Normal 101-111 [facility] Comment on above: Performed By: #### 2 582568 #### [facility] [address] [place] [address] CO2 [Moles/Vol] 25 mmol/L Normal 21-31 [facility] Comment on above: Performed By: #### 2 054226 #### [facility] [address] [place] [address] Creatinine [Mass/Vol] 1.2 mg/dL Normal 0.5-1.3 [facility] Comment on above: Performed By: #### 2 720560 #### [facility] [address] [place] [address] Globulin (S) [Mass/Vol] 3.1 g/dL Normal 1.4-4.0 [facility] Comment on above: Performed By: #### 2 336251 #### [facility] [address] [place] [address] Glucose [Mass/Vol] 140 mg/dL Normal 55-199 [facility] Comment on above: Performed By: #### 2 439730 #### [facility] [address] [place] [address] Potassium [Moles/Vol] 4.7 mmol/L Normal 3.5-5.3 [facility] Comment on above: Performed By: #### 2 616391 #### [facility] [address] [place] [address] Protein [Mass/Vol] 7.3 g/dL Normal 6.0-7.8 [facility] Comment on above: Performed By: #### 2 589328 #### [facility] [address] [place] [address] Sodium [Moles/Vol] 138 mmol/L Normal 135-145 [facility] Comment on above: Performed By: #### 2 091572 #### [facility] [address] [place] [address] Urea nitrogen [Mass/Vol] 28 mg/dL High 5-21 [facility] Comment on above: Performed By: #### 2 417773 #### [facility] [address] [place] [address] Urea nitrogen/Creatinine [Mass ratio] 23 No Units High 10-20 [facility] Comment on above: Performed By: #### 2 616270 #### [facility] [address] [place] [address] Consent for Treatmenton 03-23 Consent for Treatment [id number]#1.00TIFF Normal [facility] HEMATOLOGYOrdered By: SYSTEM SYSTEM on 04-14-2024 [...] 04-14-2024 Cholesterol [Mass/Vol] 164 mg/dL Normal 120-200 [facility] Comment on above: Performed By: #### 2 101122 #### [facility] [address] [place] [address] Cholesterol in HDL [Mass/Vol] 42 mg/dL Invalid Interpretation Code [facility] Comment on above: Result Comment: '>= 60 LOW RISK' '<= 40 HIGH RISK' Performed By: #### 2 512080 #### [facility] [address] [place] [address] Cholesterol in LDL [Mass/Vol] 83 mg/dL Normal <=129 [facility] Comment on above: Performed By: #### 2 374569 #### [facility] [address] [place] [address] Cholesterol in VLDL [Mass/Vol] 49 mg/dL High 7-40 [facility] Comment on above: Performed By: #### 2 846155 #### [facility] [address] [place] [address] Triglyceride [Mass/Vol] 246 mg/dL High <=149 [facility] Comment on above: Performed By: #### 2 674487 #### [facility] [address] [place] [address] TSH With T4fr Reflexon 04-14 TSH Qn 2.34 m[IU]/L Normal 0.34-5.60 [facility] Comment on above: Performed By: #### 1 [id number] #### [facility] [address] [place] [address] eGFRon 04-14-2024 eGFR 50 mL/min/1.73 m2 Low >=59 [facility] Comment on above: Order Comment: Order added by Discern Expert. Performed By: #### 1 [id number] #### [facility] [address] [place] [address] Family Medicine Office/Clini c Noteon 04-08-2024 Family Medicine Office/Clinic Note Chief Complaint possible bed bug bites HPI Staff Pt. states she stayed at a hotel in [place], thinks she may have bed bug bites. Has noted bites on legs, arms and stomach, some are itchy. Has tried hydrocortisone cream History of Present Illness Reviewed and agree with above documented HPI by certified court/medical interpreter. Portions of this record may have been created with voice recognition artificial intelligence software, specifically [employer], [employer] and or [employer] Substitutions may have occurred due to the inherent limitations of voice recognition and artificial intelligence software. Patient is a 63-year-old female who presents to the [facility], for insect bites to her arms [...] alert, active Assessment/Plan 64-year-old female presented to [facility], for bedbug bites, exposure this past weekend, stepped in a hole to her room on Sunday night, started with the lesions on Sunday, about 2 days ago, no facial swelling cellulitis, patient appears ill or septic, respiratory distress, difficulty swallowing. Patient was given a prescription for permethrin lotion, take wqqx-ejo-ylfeavf Benadryl as needed for itchiness, follow-up with [...] mariposa, Topical, Once, 60 gram, Refill(s) 0, [facility], 177, cm, 04/08/24 13:20:00 EDT, Height/Length Dosing, 125.7, kg, 04/08/24 13:18:00 EDT, Weight Dosing Follow-up With When Contact Information SIRIA ARMENTA, Mara, [facility] [address] [id number]- Additional Instructions: Patient Education BMI for Adults Bedbugs, Xvbs-kz-Zqim Problem List/Past Medical History Ongoing Allergic rhinitis [...] in adul (more content not included)... Normal [facility] Comment on above: Result Comment: Elec [...] face, mouth, tongue, or throat. ? 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 ? Itchy, red, swollen areas [...] provider. Document Revised: 12/26/2022 Document Reviewed: 12/21/2022 [employer] Patient Education ? 2022 [employer] Nutrition BMI for Adults What is BMI? Body mass index (BMI) is a number that is calculated from a person's weight and height. BMI can help estimate how much of a person' (more content not included)... Normal [facility] Discharge Instructionson Discharge Instructions [id number]#1.00TIFF Normal [facility] ED Clinical Summaryon 2023 ED Clinical Summary [place] [id number] ED Clinical Summary Person Information Name: LEVI SOFIA Anneliese/[facility] Age: 64 Years : 1960 Sex: Female Language: Puerto [place]ican PCP: Maar BEVERLY MD Marital Status: Visit Id: Visit [...] 03/25/2024 00:56:05 03/25/2024 00:56:05 03/25/2024 00:56:05 ADDRESS: [address] [id number] [facility] DOC NOTES: MEDICAL INFORMATION: Prescriptions Given: New Medications [facility] [address], [address], [place] [id number], [phone] brompheniramine/dex tromethorphan/PSE (Bromfed DM oral syrup) 5 [...] Follow up: With: Address: When: [place] [address] Business (1) In 3 days DIAGNOSIS: Asthma exacerbation Normal [facility] ED Note-Physicianon 03-25-20 ED Note-Physician Basic [...] cough and congestion, 200 mL, Refill(s) 0, [facility] [address], 177, cm, 03/24/24 22:52:00 EDT, Height/Length Dosing, 128, kg, 03/24/24 22:52:00 EDT, Weight Dosing B-Type Natriuretic Peptide Basic Metabolic Panel CBC w/ Auto Diff ECG 12 Lead Adult ED Cardiac Monitoring eGFR Influenza A&B Ag Oxygen Saturation Oxygen Therapy PT & PTT Rapid COVID Antigen [place] Saline Lock Insert Troponin 0 Hr. Troponin [...] Mara BEVERLY In 3 days [address] [id number] Business (1) Additional Instructions: Patient Education Asthma, [...] exam Histor (more content not included)... Normal [facility] Comment on above: Result Comment: Elec [...] (shortness of breath). ? 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 ? Chest tightness. ? Tiredness (fatigue) [...] Follow these instructions at home: ? Take qmyt-eww-xjzmbux and prescription medicines only as told by [...] ? You (more content not included)... Normal [facility] ED Patient Summaryon 024 ED Patient Summary [place] [id number] Patient Discharge Instructions Person Information Name: LEVI SOFIA Age: 64 Years Arrival Date: 03/24/2024 22:39:26 Discharge Diagnosis: Asthma exacerbation Primary Care Physician: Mara BEVERLY MD Provider Information Primary Provider: Yuniel Ocasio DO Advanced Wrist Hemmer:None The exam and treatment you received in the Emergency Department were for an urgent problem and are not intended as complete care. It is important that you follow up with a doctor, nurse practitioner, or physician?s chef's assistant for ongoing care. If your symptoms [...] Instructions: With: Address: When: [place] [address] Business (1) In 3 days In the event that this physician does not participate in your insurance network, please consult with your insurance company to find a nearby participating provider. Patient Education Materials: Asthma, Adult A MESSAGE TO ALL PATIENTS REGARDING OPIOIDS PRESCRIPTION OPIOIDS: WHAT YOU NEED TO KNOW Prescription opioids can be used to help relieve uzrmwbzx-yd-rfouug pain and are often prescribed following a [...] be struggling with addiction, tell your health patient care assistant and ask for guidance or call [facility]?S National Helpline at 0-679-598-GVCJ. v Source: [place] Department of Health and Human Services (more content not included)... Normal [facility] Troponin 1 Hr.Ordered By: ilab on 03-25-2024 Troponin HS 2.90 pg/mL Low 10.10-27.10 [facility] Comment on above: Interpretive Data: T he 95% CI (Confidence Interval) PPV (Positive Predictive Value) for myocardial infarction in females is 38 pg/mL, in males 51 pg/mL. The results should be used in conjunction with clinical conditions of myocardial infarction. (Access High Sensitivity Troponin I Instructions For Use, [place], May 2018) Order Comment: 1hr d raw @ :02 Result Comment: The 95% CI (Confidence Interval) PPV (Positive Predictive Value) for myocardial infarction in females is 38 pg/mL, in males 51 pg/mL. The results should be used in conjunction with clinical conditions of myocardial infarction. (Access High Sensitivity Troponin I Instructions For Use, Yaima [place], May 2018) Performed By: #### 1 [id number] #### [facility] [address] [place] [address] XR Chest Single Viewon 03-25 XR Chest [...] FINAL REPORT Dictated: 03/25/2024 7:55 am Christian Wnog M.D. Signed (Electronic Signature): 03/25/2024 7:55 am Signed by: Christian Wong M.D. Transcribed by: HENRIETTA Technologist: ALEXEY Technical Comments Radiation Dose: Ka,r in mGy = na DAP = na Normal [facility] BMPon 03-24-2024 Anion gap [Moles/Vol] 15 mmol/L Normal 6-16 [facility] Comment on above: Performed By: #### 2 [id number] #### [facility] [address] [place] [address] Calcium [Mass/Vol] 9.4 mg/dL Normal 8.9-11.1 [facility] Comment on above: Performed By: #### 2 [id number] #### [facility] [address] [place] [address] Chloride [Moles/Vol] 99 mmol/L Low 101-111 [facility] Comment on above: Performed By: #### 2 [id number] #### [facility] [address] [place] [address] CO2 [Moles/Vol] 25 mmol/L Normal 21-31 [facility] Comment on above: Performed By: #### 2 [id number] #### [facility] [address] [place] [address] Creatinine [Mass/Vol] 1.3 mg/dL Normal 0.5-1.3 [facility] Comment on above: Performed By: #### 2 [id number] #### [facility] [address] [place] [address] Glucose [Mass/Vol] 146 mg/dL Normal 55-199 [facility] Comment on above: Performed By: #### 2 [id number] #### [facility] [address] [place] [address] Potassium [Moles/Vol] 4.0 mmol/L Normal 3.5-5.3 [facility] Comment on above: Performed By: #### 2 [id number] #### [facility] [address] [place] [address] Sodium [Moles/Vol] 135 mmol/L Normal 135-145 [facility] Comment on above: Performed By: #### 2 [id number] #### [facility] [address] [place] [address] Urea nitrogen [Mass/Vol] 40 mg/dL High 5-21 [facility] Comment on above: Performed By: #### 2 [id number] #### [facility] [address] [place] [address] Urea nitrogen/Creatinine [Mass ratio] 31 No Units High 10-20 [facility] Comment on above: Performed By: #### 2 [id number] #### [facility] [address] [place] [address] BNPon 03-24-2024 Natriuretic peptide B (Bld) [Mass/Vol] 14 pg/mL Normal 5-80 [facility] Comment on above: Performed By: #### 1 [id number] #### [facility] [address] [place] [address] CBC w/ Auto Diffon 4 Basophils/100 WBC (Bld) 0.7 % Normal 0.0-2.0 [facility] Comment on above: Performed By: #### 2 330207 #### [facility] [address] [place] [address] Basophils/Leukocyte s Auto (Bld) [Pure # fraction] 0.1 E9/L Normal 0.0-0.2 [facility] Comment on above: Performed By: #### 2 815122 #### [facility] [address] [place] [address] Eosinophils (Bld) [#/Vol] 0.1 E9/L Normal 0.0-0.5 [facility] Comment on above: Performed By: #### 2 712486 #### [facility] [address] [place] [address] Eosinophils/100 WBC (Bld) 0.4 % Normal 0.0-8.0 [facility] Comment on above: Performed By: #### 2 [id number] #### [facility] [address] [place] [address] Erythrocyte distribution width (RBC) [Ratio] 14.7 % High 10.9-14.2 [facility] Comment on above: Performed By: #### 2 681307 #### [facility] [address] [place] [address] Hematocrit (Bld) [Volume fraction] 39.6 % Normal 34.0-46.0 [facility] Comment on above: Performed By: #### 2 506560 #### [facility] [address] [place] [address] Hemoglobin (Bld) [Mass/Vol] 13.2 g/dL Normal 12.0-16.0 [facility] Comment on above: Performed By: #### 2 593864 #### [facility] [address] [place] [address] Lymphocytes (Bld) [#/Vol] 2.6 E9/L Normal 1.0-4.0 [facility] Comment on above: Performed By: #### 2 357606 #### [facility] [address] [place] [address] Lymphocytes/100 WBC (Bld) 16.3 % Normal 14.0-50.0 [facility] Comment on above: Performed By: #### 2 018861 #### [facility] [address] [place] [address] MCH (RBC) [Entitic mass] 30.7 pg Normal 27.0-34.0 [facility] Comment on above: Performed By: #### 2 151589 #### [facility] [address] [place] [address] MCHC (RBC) [Mass/Vol] 33.3 g/dL Normal 31.4-36.0 [facility] Comment on above: Performed By: #### 2 145866 #### [facility] [address] [place] [address] MCV (RBC) [Entitic vol] 92.3 fL Normal 80.0-100.0 [facility] Comment on above: Performed By: #### 2 841769 #### [facility] [address] [place] [address] Monocytes (Bld) [#/Vol] 1.0 E9/L Normal 0.2-1.0 [facility] Comment on above: Performed By: #### 2 570802 #### [facility] [address] [place] [address] Neutrophils (Bld) [#/Vol] 12.1 E9/L High 2.0-7.5 [facility] Comment on above: Performed By: #### 2 298837 #### [facility] [address] [place] [address] Neutrophils/100 WBC (Bld) 76.0 % High 36.0-75.0 [facility] Comment on above: Performed By: #### 2 781600 #### [facility] [address] [place] [address] Platelet mean volume (Bld) [Entitic vol] 7.5 fL Normal 6.4-10.8 [facility] Comment on above: Performed By: #### 2 [id number] #### [facility] [address] [place] [address] Platelets (Bld) [#/Vol] 194.0 E9/L Normal 150.0-500.0 [facility] Comment on above: Performed By: #### 2 126733 #### [facility] [address] [place] [address] RBC (Bld) [#/Vol] 4.3 E12/L Normal 4.3-5.9 [facility] Comment on above: Performed By: #### 2 689988 #### [facility] [address] [place] [address] WBC corrected for nucl RBC Auto (Bld) [#/Vol] 15.9 E9/L High 4.0-11.0 [facility] Comment on above: Performed By: #### 2 936877 #### [facility] [address] [place] [address] CHEMISTRYOrdered By: SYSTEM SYSTEM on 03-24-2024 Anion [...] 14 pg/mL Normal 5 - 80 pg/mL [facility] HemeManSS COAGULATIONOrdered By: Raeann Avila on 03-24-2024 aPTT Coag (PPP) [Time] 29.2 s Normal 25.1 - 36.5 second(s) [facility] Auto Coag Comment on above: Interpretive Data: [...] the same coagulation reagent and instrumentation as [facility]. Currently there are no coagulation studies available worldwide for children to 14 days, and no normal ranges. Heparin therapeutic range (represented by Anti-Factor Xa activity of 0.2 - 0.4 U/mL) corresponds to PTT of 56.6 - 109.0 sec. INR Coag (PPP) [Relative time] 0.95 {INR} Invalid Interpretation Code [facility] Auto Coag Comment on above: Interpretive Data: I NR results are specifically intended to assess patients stabilized on long-term Anticoagulation therapy suggested INR s Less Intensive Anticoagulation 2.0 3.0 Conventional Range 3.0 4.5 PT Coag (PPP) [Time] 10.6 s Normal 9.4 - 12.5 second(s) [facility] Auto Coag Comment on above: Interpretive Data: [...] the same coagulation reagent and instrumentation as [facility]. Currently there are no coagulation studies available worldwide for children to 14 days, and no normal ranges. Consent for Treatmenton Consent for Treatment [phone] [id number] 35#1.00TIFF Normal [facility] HEMATOLOGYOrdered By: SYSTEM SYSTEM on 03-24-2024 [...] Influenzae A Ag Negative Normal Negative [facility] Comment on above: Performed By: #### 1 [id number] #### [facility] [address] [place] [address] Influenzae B Ag Negative Normal Negative [facility] Comment on above: Result Comment: Test sensitivity and specificity vary for age group, specimen type, antigen types, and prevalence of disease. Test results must be evaluated in conjunction with other clinical data available to the physician. Individuals who received nasally administered Influenza A vaccine may have positive test results up to 3 days after vaccination. Performed By: #### 1 [id number] #### [facility] [address] [place] [address] MICRO OTHER TESTSOrdered By: Caroline Avila on 03-24-2024 Influenzae A Ag Negative (03/24/24 11:05 PM) Normal Negative [facility] Man Sero Influenzae B Ag Negative 1 (03/24/24 11:05 PM) Normal Negative [facility] Man Sero Comment on above: Interpretive Data: [...] NEG Ctl Pass (03/24/24 11:05 PM) Normal [facility] Man Sero Rapid COV Int POS Ctl Pass (03/24/24 11:05 PM) Normal [facility] Sero SARS-CoV+SARS-CoV-2 (COVID-19) Ag IA.rapid Ql (Resp) Not Detected 7 (03/24/24 11:05 PM) Normal Not Detected [facility] Man Sero Comment on above: Interpretive Data: T he The Dodo Veritor System for Rapid Detection of SARS-CoV-2 [...] Coag (PPP) [Time] 29.2 second(s) Normal 25.1-36.5 [facility] Comment on above: Result Comment: Para [...] the same coagulation reagent and instrumentation as [facility]. Currently there are no coagulation studies available worldwide for children to 14 days, and no normal ranges. Heparin therapeutic range (represented by Anti-Factor Xa activity of 0.2 - 0.4 U/mL) corresponds to PTT of 56.6 - 109.0 sec. Performed By: #### 1 [id number] #### [facility] [address] [place] [address] INR Coag (PPP) [Relative time] 0.95 {INR} Invalid Interpretation Code [facility] Comment on above: Result Comment: INR results are specifically intended to assess patients stabilized on long-term Anticoagulation therapy suggested INR?s ?Less Intensive Anticoagulation? 2.0 ? 3.0 Conventional Range 3.0 ? 4.5 Performed By: #### 1 [id number] #### [facility] [address] [place] [address] PT Coag (PPP) [Time] 10.6 second(s) Normal 9.4-12.5 [facility] Comment on above: Result Comment: 15 [...] the same coagulation reagent and instrumentation as [facility]. Currently there are no coagulation studies available worldwide for children to 14 days, and no normal ranges. Performed By: #### 1 [id number] #### [facility] [address] [place] [address] Rapid COVID Antigen ([facility])on 03-24-2024 Rapid COV Int NEG Ctl Pass Normal [facility] Comment on above: Performed By: #### 2 [id number] #### [facility] [address] [place] [address] Rapid COV Int POS Ctl Pass Normal [facility] Comment on above: Performed By: #### 2 [id number] #### [facility] [address] [place] [address] SARS-CoV+SARS-CoV-2 (COVID-19) Ag IA.rapid Ql (Resp) Not detected Normal Not Detected [facility] Comment on above: Result Comment: The 24PageBooksitor? System for Rapid Detection of SARS-CoV-2 is [...] or revoked sooner. Performed By: #### 2 [id number] #### [facility] [address] [place] [address] Troponin 0 Hr.on 03-24-2024 Troponin HS 4.00 pg/mL Low 10.10-27.10 [facility] Comment on above: Result Comment: The 95% CI (Confidence Interval) PPV (Positive Predictive Value) for myocardial infarction in females is 38 pg/mL, in males 51 pg/mL. The results should be used in conjunction with clinical conditions of myocardial infarction. (Access High Sensitivity Troponin I Instructions For Use, Yaima [place], May 2018) Performed By: #### 1 [id number] #### [facility] [address] [place] [address] eGFRon 03-24-2024 eGFR 46 mL/min/1.73 m2 Low >=59 [facility] Comment on above: Order Comment: Order added by Discern Expert. Performed By: #### 1 [id number] #### [facility] [address] [place] [address] Ambulatory Visit Summaryon 0 03-21-2024 Ambulatory Visit [...] PM EDT With: Mara BEVERLY MD Where: [facility] [place] Normal [address], [address] [place] [address]- \.br\ You Need to Schedule the Following Appointments\.br\ Follow Up with Mara BEVERLY MD, [facility] When: Only if needed\.br\ Where:\.br\ \.br\ Medications\.br\ What How Much When Instructions\.br\ New benzonatate (benzonatate 200 mg oral capsule) 1 Capsules By Mouth 3 times a day Duration: 10 Days Pickup at [facility]\.br\ Unchanged albuterol (Albuterol (Eqv-ProAir HFA) 90 [...] if questions or concerns \.br\ Pharmacy Information\.br\ [facility]: [address] [place], [place] [id number] [phone]\.br\ Allergies\.br\ Augmentin (hives)\.br\ Avelox (Hives)\.br\ Parafon Forte [...] Pollen.\.br\ ? \.br\ Air pollution (like household medical field representative, wood smoke, smog, or chemical odors).\.br\ What are the signs or [facility] Family Medicine Office/Clini c Noteon 03-21-2024 Family [...] quality improved. She plans to travel to [place] on Sunday and expresses concern about feeling [...] 30 cap (more content not included)... Normal [facility] Comment on above: Result Comment: Elec [...] ? Pollen. ? Air pollution (like household medical field representative, wood smoke, smog, or chemical odors). What [...] polyester or cotton. General instructions ? Take qrsj-lbs-yhzngqu and prescription medicines only as told by [...] pollute the air. These may include household medical field representative, wood smoke, smog, or chemical odors. This information is not intended to replace advice given to you by your health care provider. Make sure you discuss any questions you have with your health care provi (more content not included)... Normal [facility] Patient Correspondenceon Patient Correspondence [id number] B#1.00TIFF [facility] Ambulatory Visit Summaryon 0 03-10-2024 [...] PM EDT With: Mara BEVERLY MD Where: [facility] [place] [address], [address] [place] [id number]- \.br\ Medications\.br\ What How Much When Instructions\.br\ [...] ? \.br\ Air pollutants such as household medical field representative, aerosol sprays, strong odors, and smoke of [...] cause of your asthma attack.\.br\ ? \.b [facility] Medicine Office/Clini c Noteon 03-10-2024 [...] day(s), # 6 tab(s), Refills(s) 0, Pharmacy: [facility], 177, cm, 03/10/24 18:16:00 EDT, Height/Length Dosing, 128.6, kg, 03/10/24 18:16:00 EDT, Weight Dosing fluconazole, See Instructions, Take one po q 3 day as needed for post op yeast, # 2 caplet(s), Refills(s) 0, Pharmacy: [facility], 177, cm, 03/10/24 18:16:00 EDT, Height/Length Dosing, 128.6, kg, (more content not included)... Normal [facility] Comment on above: Result Comment: Elec [...] grass. ? Air pollutants such as household medical field representative, aerosol sprays, strong odors, and smoke of [...] these instructions at home: Medicines ? Take tsiu-fjw-bzfyvoi and prescription medicines only as told by [...] to co (more content not included)... Normal [facility] Physician Referralon 024 Physician Referral [id number] 60#1.00TIFF Normal [facility] Ambulatory Visit Summaryon 0 12-10-2023 Ambulatory [...] PM EDT With: Mara BEVERLY MD Where: [facility] [place] Normal [facility] Family Medicine Office/Clini c Noteon 12-10-2023 Family Medicine Office/Clinic Note Chief Complaint 6mo chk up, rf sumitriptan to [place], needs orders to get labs at [facility] and would like to add vitamin levels. pt c/o urinary urgency/frequency, denies burning History of Present Illness The patient is a 63-year-old female who presents for a general health maintenance checkup. She just returned from [place] after spending over a month there with [...] Urnls Dip Stick Auto w/ Microscopy POC 54298 2. Combined hyperlipidemia (E78.2: Mixed hyperlipidemia) Continues on moderate intensity atorvastatin to help prevent cardiovascular disease risk progression. Requesting labs to be done before next follow-up. Ordered: Urnls Dip Stick Auto w/ Microscopy POC 63152 3. Detrusor instability of bladder (N32.81: Overactive [...] voiding and reduce nocturnal fluid intake Ordered: [facility] Internal Ambulatory Referral Urnls Dip Stick Auto w/ Microscopy POC 28898 4. Fasting hyperglycemia (R73.01: Impaired fasting glucose) Continue limiting carbohydrates in the diet to prevent any progression diabetes mellitus Ordered: Urnls Dip Stick Auto w/ Microscopy POC 33499 5. Depression, major, recurrent, in partial remission (F33.41: Major depressive disorder, recurrent, in partial remission) Doing nicely with venlafaxine we will continue the same patient defers any need for counseling family is very supportive and she is doing much better now that she is retired from work Ordered: Urnls Dip Stick Auto w/ Microscopy POC 34560 6. Hypothyroidism, congenital (E03.1: Congenital hypothyroidism witho (more content not included)... Normal [facility] Comment on above: Result Comment: Elec [...] Spices. Seasoni (more content not included)... Normal [facility] Patient Correspondenceon Patient Correspondence [id number] 0F#1.00TIFF Normal [facility] Patient Correspondenceon Patient Correspondence [id number] FB#1.00TIFF Normal [facility] Family Medicine Office/Clini c Noteon 10-17-2023 Family Medicine Office/Clinic Note Chief Complaint possible sinus infection HPI Staff 63 year old female presents with possible sinus infection. Sinus pressure, itchy ears, drainage, symptoms started about 5 days ago. History of Present Illness rm 1 Portions of this record may have been created with voice recognition artificial intelligence software, specifically [employer], [employer] and or [employer] Substitutions may have occurred due to the [...] BID, # 20 cap(s), Refills(s) 0, Pharmacy: [facility], 178, cm, 10/17/23 14:51:00 EST, Height/Length Dosing, 127, kg, 10/17/23 14:51:00 EST, Weight Dosing Follow-up With When Contact Information SIRIA ARMENTA, Mara, [address] [address]- Additional Instructions: Patient Education Sinus Infection, Adult, Zfcq-cz-Gwzl BMI for Adults Problem List/Past Medical History [...] Cataract extract (more content not included)... Normal [facility] Comment on above: Result Comment: Elec [...] ? Medicines that treat allergies (antihistamines). ? Rbol-aov-mikdoez pain relievers. ? If caused by bacteria, your doctor may wait to see if you will get better without treatment. You may be given antibiotic medicine if you have: ? A very bad infection. ? A weak body defense system. ? If caused by growths in the nose, surgery may be needed. Follow these instructions at home: Medicines ? Take, use, or apply cqaa-jcl-knpwxay and prescription medicines only as told by [...] cannot use soap and water, use hand tax preparer. ? Do not smoke. Avoid being around [...] follow-up visits (more content not included)... Normal [facility] Consultation Noteon 09-17-20 Consultation Note [id number] 3#1.00TIFF Normal [facility] CHEMISTRYOrdered By: SYSTEM SYSTEM on 05-17-2023 Anion gap [Moles/Vol] 10 mmol/L Normal 6 - 16 mEq/L [facility] Chloride [Moles/Vol] 105 mmol/L Normal 101 - 111 mmol/L [facility] CO2 [Moles/Vol] 27 mmol/L Normal 21 - 31 mmol/L [facility] Creatinine [Mass/Vol] 1.1 mg/dL Normal 0.5 - 1.3 mg/dL [facility] Remisol GFR/1.73 sq M.predicted among non-blacks MDRD (S/P/Bld) [Vol rate/Area] 56 mL/min/1.73 m2 Low >=59mL/min/1.[address] [facility] Chem S Potassium [Moles/Vol] 4.7 mmol/L Normal [...] 196.0 E9/L Normal 150.0 - 500.0 E9/L [facility] HemeAutoSS RBC (Bld) [#/Vol] 3.9 E12/L Low 4.3 - 5.9 E12/L [facility] HemeAutoSS WBC corrected for nucl RBC Auto (Bld) [#/Vol] 9.6 E9/L Normal 4.0 - 11.0 E9/L [facility] HemeAutoSS CHEMISTRYOrdered By: SYSTEM SYSTEM on 05-16-2023 Anion gap [Moles/Vol] 13 mmol/L Normal 6 - 16 mEq/L [facility]isol Chloride [Moles/Vol] 103 mmol/L Normal 101 - 111 mmol/L [facility] Remisol CO2 [Moles/Vol] 24 mmol/L Normal 21 - 31 mmol/L [facility] Remisol Creatinine [Mass/Vol] 1.2 mg/dL Normal 0.5 - 1.3 mg/dL [facility] Remisol GFR/1.73 sq M.predicted among non-blacks MDRD (S/P/Bld) [Vol rate/Area] 51 mL/min/1.73 m2 Low >=59mL/min/1.[address] [facility] Chem S Glucose post fast [Mass/Vol] 132 mg/dL High 55 - 99 mg/dL [facility] Potassium [Moles/Vol] 3.8 mmol/L Normal 3.5 - 5.3 mmol/L [facility] Remisol Sodium [Moles/Vol] 136 mmol/L Normal 135 - 145 mmol/L [facility] Remisol Urea nitrogen [Mass/Vol] 31 mg/dL High 5 - 21 mg/dL [facility] Remisol HEMATOLOGYOrdered By: Millicent Andrade on 05-16-2023 Erythrocyte distribution width (RBC) [Ratio] 14.9 % High 10.9 - 14.2 % [facility] HemeAutoSS Hematocrit (Bld) [Volume fraction] 42.0 % Normal 34.0 - 46.0 % [facility] HemeAutoSS Hemoglobin (Bld) [Mass/Vol] 14.2 g/dL Normal 12.0 - 16.0 gm/dL [facility] HemeAutoSS MCH (RBC) [Entitic mass] 31.5 pg Normal 27.0 - 34.[address] [facility] HemeAutoSS MCHC (RBC) [Mass/Vol] 33.9 g/dL Normal [...] Interpretation Code Negative [facility] UA Auto SS [place].plasma/Lith ium.RBC (Bld) [Mass ratio] 0-3 /HPF Normal [...] [facility] UA Auto SS Urobilinogen Qn (U) [id number] {Rupert'U}/dL Normal 0.0 - 1.0 EU/dL [facility] [...] by: JODI PAPPAS Date: 2022-08-02 17:14 Normal [facility] CHEMISTRYOrdered By: SYSTEM SYSTEM on 07-20-2022 Anion [...] [Vol rate/Area] mL/min/1.73 m2 Normal >=59mL/min/1.[address] [facility] Chem S GFR/1.73 sq M.predicted among non-blacks MDRD (S/P/Bld) [Vol rate/Area] mL/min/1.73 m2 Normal >=59mL/min/1.[address] [facility] Chem S Glucose [Mass/Vol] 111 mg/dL Normal [...] OXOIDSon 05-05-2022 DIPHTHERIA ANTITOXOID 0.41 IU/mL Normal [facility] Comment on above: Order Comment: FASTI [...] analytical performance characteristics have been determined by [facility] [place]. It has not been cleared or approved by the U.S. Food and Drug Administration. This assay has been validated pursuant to the CLIA regulations and is used for clinical purposes. Performed By: #### 5 [phone], [phone], [phone], [phone] #### [facility] [address], [address] [place] [address] Ammonia Still Operator: Lenin Larson MD #### [id number] #### [facility] [id number] [place] [id number] Ammonia Still Operator: Sejal Johns MD,PhD,EHNRIETTA #### [id number] #### [facility] [address] [facility] [place] [address] Ammonia Still Operator: Sherwin Jay M.D.,PhD TETANUS ANTITOXOID 5.47 IU/mL Normal [facility] Comment on above: Order Comment: FASTI [...] analytical performance characteristics have been determined by [facility] [place]. It has not been cleared or approved by the U.S. Food and Drug Administration. This assay has been validated pursuant to the CLIA regulations and is used for clinical purposes. Performed By: #### 5 43, 542, 545, 539 #### [facility] [place] [address] [address] , [address] [place] [address] Ammonia Still Operator: Lenni Larson MD #### [id number] #### [facility], [address] [place] [address] Ammonia Still Operator: Sejal Johns MD,PhD,HENRIETTA #### [id number] #### [facility]/[address] [place], [place] Ammonia Still Operator: Sherwin Jay M.D.,PhD IMMUNOGLOBULIN Aon 2 IMMUNOGLOBULIN A 239 mg/dL Normal 70-320 [facility] Comment on above: Performed By: #### 5 43, 542, 545, 539 #### [facility] [address], [address] [place] [address] Ammonia Still Operator: Lenin Larson MD #### [id number] #### [facility]/[place] [address] Ammonia Still Operator: Sejal Johns MD,PhD,HENRIETTA #### [id number] #### [facility]/[address] [place] Ammonia Still Operator: Sherwin Jay M.D.,PhD IMMUNOGLOBULIN Edis 2 IMMUNOGLOBULIN E 77 kU/L Normal [facility] Comment on above: Performed By: #### 5 43, 542, 545, 539 #### [facility] [place] [address] [address] , [address] [place] [address] Ammonia Still Operator: Lenin Larson MD #### [id number] #### [facility], [address] [place], [place] Ammonia Still Operator: Sejal Johns MD,PhD,HENRIETTA #### [id number] #### [facility]/[address] [place] Ammonia Still Operator: Sherwin Jay M.D.,PhD IMMUNOGLOBULIN Lenard 2 IMMUNOGLOBULIN G 1305 mg/dL Normal 600-1540 [facility] Comment on above: Performed By: #### 5 43, 542, 545, 539 #### [facility] [address], [address] [place] [address] Ammonia Still Operator: Lenin Larson MD #### [id number] #### [facility], [address] [place] [address] Ammonia Still Operator: Sejal Johns MD,PhD,HENRIETTA #### [id number] #### [facility]/[address] [place] Ammonia Still Operator: Sherwin Jay M.D.,PhD IMMUNOGLOBULIN Mon 2 IMMUNOGLOBULIN M 203 mg/dL Normal 50-300 [facility] Comment on above: Performed By: #### 5 43, 542, 545, 539 #### [facility] [address], [address] [place] [address] Ammonia Still Operator: Lenin Larson MD #### [id number] #### [facility], [address] [place], [place] Ammonia Still Operator: Sejal Johns MD,PhD,HENRIETTA #### [id number] #### [facility]/[place] [id number] [facility] [place], [place] Ammonia Still Operator: Sherwin Jay M.D.,PhD STREPTOCOCCUS PNEUMONIAE AB (IGG) (23 SEROTYPES)on 05-05-2022 SEROTYPE 1 (1) 1.1 Normal [facility] Comment on above: Performed By: #### 5 43, 542, 545, 539 #### [facility] of [place] [address], [address] [place] [address] Ammonia Still Operator: Lenin Larson MD #### [id number] #### [facility] [address] [place] [address] Ammonia Still Operator: Sejal Johns MD,PhD,HENRIETTA #### [id number] #### [facility]/[address] [place] Ammonia Still Operator: Sherwin Jay M.D.,PhD SEROTYPE 12 (12F) 0.5 Normal [facility] Comment on above: Performed By: #### 5 43, 542, 545, 539 #### [facility] of [place] [address], [address] [place] [address] Ammonia Still Operator: Lenin Larson MD #### [id number] #### [facility], [address] [place] [address] Ammonia Still Operator: Sejal Johns MD,PhD,HENRIETTA #### [id number] #### [facility]/[address] [place] Ammonia Still Operator: Sherwin Jay M.D.,PhD SEROTYPE 14 (14) 3.3 Normal [facility] Comment on above: Performed By: #### 5 43, 542, 545, 539 #### [facility] of [place] [address], [address] [place] [address] Ammonia Still Operator: Lenin Larson MD #### [id number] #### [facility], [address] [place] [place] [address] Ammonia Still Operator: Sejal Johns MD,PhD,HENRIETTA #### [id number] #### [facility]/[address] [place] Ammonia Still Operator: Sherwin Jay M.D.,PhD SEROTYPE 17 (17F) 5.4 Normal [facility] Comment on above: Performed By: #### 5 43, 542, 545, 539 #### [facility] of [facility] [address], [address] [place] [address] Ammonia Still Operator: Lenin Larson MD #### [id number] #### [facility], [address] [place] [address] Ammonia Still Operator: Sejal Johns MD,PhD,HENRIETTA #### [id number] #### [facility]/[address] [place] Ammonia Still Operator: Sherwin Jay M.D.,PhD SEROTYPE 19 (19F) 4.3 Normal [facility] Comment on above: Performed By: #### 5 43, 542, 545, 539 #### [facility] of [place] [address], [address] [place] [address] Ammonia Still Operator: Lenin Larson MD #### [id number] #### [facility], [facility] [place] [address] Ammonia Still Operator: Sejal Johns MD,PhD,HENRIETTA #### 48047 #### [facility]/[address] [place] Ammonia Still Operator: Sherwin aJy M.D.,PhD SEROTYPE 2 (2) 1.0 Normal [facility] Comment on above: Performed By: #### 5 43, 542, 545, 539 #### [facility] of [facility] [address], [address] [place] [address] Ammonia Still Operator: Lenin Larson MD #### [id number] #### [facility], [address] [place] [address] Ammonia Still Operator: Sejal Johns MD,PhD,HENRIETTA #### [id number] #### [facility]/[address] [place] Ammonia Still Operator: Sherwin Jay M.D.,PhD SEROTYPE 20 (20) 1.8 Normal [facility] Comment on above: Performed By: #### 5 43, 542, 545, 539 #### [facility] of [facility] [address], [address] [place] [address] Ammonia Still Operator: Lenin Larson MD #### [id number] #### [facility], [address] [place] [id number] Ammonia Still Operator: Sejal Johns MD,PhD,HENRIETTA #### [id number] #### [facility]/[address] [place] Ammonia Still Operator: Sherwin Jay M.D.,PhD SEROTYPE 22 (22F) <0.3 Normal [facility] Comment on above: Performed By: #### 5 43, 542, 545, 539 #### [facility] [address], [address] [place] [address] Ammonia Still Operator: Lenin Larson MD #### [id number] #### [facility], [address] [place] [address] Ammonia Still Operator: Sejal Johns MD,PhD,HENRIETTA #### 11507 #### [facility]/[address] [place] Ammonia Still Operator: Sherwin Jay M.D.,PhD SEROTYPE 23 (23F) 4.9 Normal [facility] Comment on above: Performed By: #### 5 43, 542, 545, 539 #### [facility] of [facility] [address], [address] [place] [address] Ammonia Still Operator: Lenin Larson MD #### 56175 #### [facility], [address] [facility] [address] Ammonia Still Operator: Sejal Johns MD,PhD,HENRIETTA #### [id number] #### [facility]/[address] [place] Ammonia Still Operator: Sherwin Jay M.D.,PhD SEROTYPE 26 (6B) 0.5 Normal [facility] Comment on above: Performed By: #### 5 43, 542, 545, 539 #### [facility] [address], [address] [place] [address] Ammonia Still Operator: Lenin Larson MD #### 58802 #### [facility], [address] [place] [address] Ammonia Still Operator: Sejal Johns MD,PhD,HENRIETTA #### [id number] #### [facility]/[address] [place] Ammonia Still Operator: Sherwin Jay M.D.,PhD SEROTYPE 3 (3) 0.7 Normal [facility] Comment on above: Performed By: #### 5 43, 542, 545, 539 #### [facility] [address], [address] [place] [address] Ammonia Still Operator: Lenin Larson MD #### 10757 #### [facility], [address] [facility] [address] Ammonia Still Operator: Sejal Johns MD,PhD,HENRIETTA #### [id number] #### [facility]/[place] [id number] [facility] [address] [place] Ammonia Still Operator: Sherwin Jay M.D.,PhD SEROTYPE 34 (10A) 1.3 Normal [facility] Comment on above: Performed By: #### 5 43, 542, 545, 539 #### [facility] of [place] [address] , [address] [place] [address] Ammonia Still Operator: Lenin Larson MD #### 79235 #### [facility], [address] [facility] [place] [id number] Ammonia Still Operator: Sejal Johns MD,PhD,HENRIETTA #### 56519 #### [facility]/[address] [place] Ammonia Still Operator: Sherwin Jay M.D.,PhD SEROTYPE 4 (4) 2.1 Normal [facility] Comment on above: Performed By: #### 5 43, 542, 545, 539 #### [facility] of [place] [address] [address] , [address] [place] [address] Ammonia Still Operator: Lenin Larson MD #### 35600 #### [facility], [address] [facility], [place] [id number] Ammonia Still Operator: Sejal Johns MD,PhD,HENRIETTA #### 63537 #### [facility]/[address] [place] Ammonia Still Operator: Sherwin Jay M.D.,PhD SEROTYPE 43 (11A) 1.0 Normal [facility] Comment on above: Performed By: #### 5 43, 542, 545, 539 #### [facility] [address] , [address] [place] [address] Ammonia Still Operator: Lenin Larson MD #### [id number] #### [facility], [address] [place] [address] Ammonia Still Operator: Sejal Johns MD,PhD,HENRIETTA #### [id number] #### [facility]/[address] [place] Ammonia Still Operator: Sherwin Jay M.D.,PhD SEROTYPE 5 (5) 4.8 Normal [facility] Comment on above: Performed By: #### 5 43, 542, 545, 539 #### [facility] of [address] , [address] [place] [address] Ammonia Still Operator: Lenin Larson MD #### 32963 #### [facility]/[place] [address] Ammonia Still Operator: Sejal Johns MD,PhD,HENRIETTA #### [id number] #### [facility]/[address] [place] Ammonia Still Operator: Sherwin Jay M.D.,PhD SEROTYPE 51 (7F) 13.1 Normal [facility] Comment on above: Performed By: #### 5 43, 542, 545, 539 #### [facility] of [address] , [address] [place] [address] Ammonia Still Operator: Lenin Larson MD #### 54441 #### [facility]/[place] [address] Ammonia Still Operator: Sejal Johns MD,PhD,HENRIETTA #### 51858 #### [facility]/[address] [place] Ammonia Still Operator: Sherwin Jay M.D.,PhD SEROTYPE 54 (15B) 3.0 Normal [facility] Comment on above: Performed By: #### 5 43, 542, 545, 539 #### [facility] of [facility] [address] [facility], [address] [place] [address] Ammonia Still Operator: Lenin Larson MD #### 85819 #### [facility], [address] [place] [address] Ammonia Still Operator: Sejal Johns MD,PhD,HENRIETTA #### [id number] #### [facility]/[address] [place] Ammonia Still Operator: Sherwin Jay M.D.,PhD SEROTYPE 56 (85K) 18.3 Normal [facility] Comment on above: Performed By: #### 5 43, 542, 545, 539 #### [facility] of [address], [address] [place] [address] Ammonia Still Operator: Lenin Larson MD #### 54932 #### [facility], [address] [place] [address] Ammonia Still Operator: Sejal Johns MD,PhD,HENRIETTA #### [id number] #### [facility]/[address] [place] Ammonia Still Operator: Sherwin Jay M.D.,PhD SEROTYPE 57 (35B) 14.1 Normal [facility] Comment on above: Performed By: #### 5 43, 542, 545, 539 #### [facility] [address], [address] [place] [address] Ammonia Still Operator: Lenin Larson MD #### 03332 #### [facility], [address] [place] [phone] Ammonia Still Operator: Sejal Johns MD,PhD,HENRIETTA #### 52854 #### [facility] [place] Ammonia Still Operator: Sherwin Jay M.D.,PhD SEROTYPE 68 (9V) 0.7 Normal [facility] Comment on above: Performed By: #### 5 43, 542, 545, 539 #### [facility] [address] [facility], [address] [place] [address] Ammonia Still Operator: Lenin Larson MD #### [id number] #### [facility], [address] [place] [address] Ammonia Still Operator: Sejal Johns MD,PhD,HENRIETTA #### 55934 #### [facility] [address] [facility] [place] Ammonia Still Operator: Sherwin Jay M.D.,PhD SEROTYPE 70 (33F) <0.3 [...] serotype-specific titers may have less robust responses. [facility] uses a multi-analyte immunodetection (MAID) method. The method employs the [employer] flow cytometric system which measures multiple analytes [...] analytical performance characteristics have been determined by [facility]. It has not been cleared or approved by FDA. This assay has been validated pursuant to the CLIA regulations and used for clinical purposes. For additional information, please refer to http://education.NetScientific.IMNEXT/faq/XHN427 (This link is being provided for informational/ educational purposes only.) Performed By: #### 5 43, 542, 545, 539 #### [facility] [place] [address] Ammonia Still Operator: Lenin Larson MD #### [id number] #### [facility], [address] [place] [address] Ammonia Still Operator: Seajl Johns MD,PhD,HENRIETTA #### 74753 #### [facility]/[address] [place] Ammonia Still Operator: Sherwin Jay M.D.,PhD SEROTYPE 8 (8) <0.3 Normal [facility] Comment on above: Performed By: #### 5 43, 542, 545, 539 #### [facility] [place] [address] Ammonia Still Operator: Lenin Larson MD #### 33354 #### [facility]/[place] [address] Ammonia Still Operator: Sejal Johns MD,PhD,HENRIETTA #### 51015 #### [facility]/[address] [place] Ammonia Still Operator: Sherwin Jay M.D.,PhD SEROTYPE 9 (9N) <0.3 Normal [facility] Comment on above: Performed By: #### 5 43, 542, 545, 539 #### [facility] [address], [address] [place] [address] Ammonia Still Operator: Lenin Larson MD #### 07510 #### [facility], [address] [place] [address] Ammonia Still Operator: Sejal Johns MD,PhD,HENRIETTA #### [id number] #### [facility] [address] [facility] [place] [address] Ammonia Still Operator: Sherwin Jay M.D.,PhD XR FOOT LEFT 3+ [...] on SunAug 13, 2020 4:09:56 PM EDT [facility] Comment on above: Order Comment: Injur [...] JOINTS (FOUR JOINTS) HISTORY: Bilateral Charcot foot 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 [employer] fluoroscopic images demonstrate severe degenerative changes at [...] foot was positioned flat on the table. [employer] fluoroscopic images demonstrate moderately severe degenerative changes [...] naviculocuneiform joints using fluoroscopic guidance. Workstation ID: [id number] Dictated by: SENAIT OCHOA on SunJul 16, 2020 8:33:46 AM EDT Transcribed by: SENAIT OCHOA on SunJul 16, 2020 8:33:46 AM EDT Finalized by: SENAIT OCHOA on SunJul 16, 2020 8:33:46 AM EDT Normal [facility] 2020 Degenerative changes without acute osseous abnormality. Workstation ID: [id number] [facility] EXAMINATION: XR ANKLE RIGHT 2 [...] diffuse soft tissue swelling about the forefoot. [facility] Interface, Rad In [employer] - 2020 [...] without acute osseous abnormality. Workstation ID: [id number] [facility] XR ANKLE RIGHT 2 VIEWSon [...] on SunMarch 09, 2020 12:49:55 PM EDT [facility] Comment on above: Order Comment: STAND [...] on SunMarch 09, 2020 12:49:55 PM EDT [facility] Comment on above: Order Comment: Injur [...] on SunMarch 09, 2020 12:49:55 PM EDT [facility] Comment on above: Order Comment: Injur y/Trauma or Illness?:Illness/Other How long have you had these symptoms (acute/chronic)?:Chronic Reason for exam?:Chroni B/L Foot pain Lt worse than Rt. Charcot History of cancer?:u Surgeries, chemotherapy, or radiation?:u Type of Exam?:Initial Additional signs and symptoms?:u XR FOOT LEFT 3+ VIEWS (STAND ANN)on 09-04-2019 Charcot changes of the midfoot are noted. No other acute abnormalities. [facility]/jcw Workstation ID: [id number] [facility] EXAMINATION: XR FOOT LEFT 3+ [...] midfoot. No aggressive appearing erosive bony changes. [facility] Interface, Rad In [employer] Speech[employer] - 09/04/2019 [...] midfoot are noted. No other acute abnormalities. [facility] Workstation ID: [id number] [facility] XR FOOT LEFT 3+ VIEWS [...] midfoot are noted. No other acute abnormalities. [facility]/w Workstation ID: [id number] Dictated by: VALERY BETH on SunSep 04, 2019 2:30:50 PM EST Transcribed by: SEBASTIÁN PILLAI IN [employer] on SunSep 04, 2019 3:05:20 PM EST Finalized by: VALERY BETH on SunSep 04, 2019 3:27:26 PM EST Normal [facility] Comment on above: Order Comment: Injur [...] pes planus deformity. 3. No new findings. [facility]/ads Workstation ID: [id number] [facility] EXAMINATION: XR FOOT LEFT 3+ [...] by approximately 5 mm. This is stable. [facility] Sebastián Pillai In [employer] - 03/12/2019 1:23 PM EDT EXAMINATION: XR [...] 3. No new findings. [facility]/ads Workstation ID: [id number] [facility] MR COMPARISON IMPORTon 02-06 This order has been auto-finalized and does not contain a result. [facility] XR COMPARISON IMPORTon 02-06 This order has been auto-finalized and does not contain a result. [facility] Vital Signs Date Time Vital Sign Value Performing Clinician Karmai cynthia 11-20-2024 09:24-0500 Body height 177.8 cm Melva Grimaldo DO Work Phone: [facility] [employer] 11-20-2024 09:24-0500 Body mass index (BMI) [Ratio] 38.48 kg/m2 Melva Grimaldo DO Work Phone: [facility] [employer] 11-20-2024 09:24-0500 Body weight 121.66 kg Melva Grimaldo DO Work Phone: [facility] [employer] 09-30-2024 14:30-0500 Blood Pressure Location Mara [facility] 09-30-2024 14:30-0500 Body temperature 98.6 [degF] Mara [facility] 09-30-2024 14:30-0500 Diastolic blood pressure 70 mm[Hg] Mara [facility] 09-30-2024 14:30-0500 Heart rate 78 /min Christopher [facility] 09-30-2024 14:30-0500 Respiratory rate 18 /min Christopher [facility] 09-30-2024 14:30-0500 SaO2% (BldA) [Mass fraction] 97 % Christopher [facility] 09-30-2024 14:30-0500 Systolic blood pressure 139 mm[Hg] Christopher [facility]OWN [facility] 08-19-2024 15:42-0400 Blood Pressure Location Christopher [facility] 08-19-2024 15:42-0400 Diastolic blood pressure 78 mm[Hg] Christopher [facility] 08-19-2024 15:42-0400 Heart rate 81 /min Christopher [facility] 08-19-2024 15:42-0400 Respiratory rate 16 /min Christopher [facility] 08-19-2024 15:42-0400 SaO2% (BldA) [Mass fraction] 96 % Christopher [facility] 08-19-2024 15:42-0400 Systolic blood pressure 112 mm[Hg] Christopher [facility] 08-19-2024 14:29-0400 Blood Pressure Location Christopher [facility] 08-19-2024 14:29-0400 Body temperature 98.06 [degF] Christangeler SIRIA [facility] 08-19-2024 14:29-0400 Diastolic blood pressure 78 mm[Hg] Pandaer BROWN [facility] 08-19-2024 14:29-0400 Heart rate 81 /min Christopher [facility] 08-19-2024 14:29-0400 SaO2% (BldA) [Mass fraction] 96 % Mara [facility] 08-19-2024 14:29-0400 Systolic blood pressure 112 mm[Hg] Mara [facility] 07-10-2024 10:09-0400 Body height 177.8 cm Melva Grimaldo Work Phone: [facility] 07-10-2024 10:09-0400 Body mass index (BMI) [Ratio] 39.46 kg/m2 Melva Grimaldo DO Work Phone: [facility] 07-10-2024 10:09-0400 Body weight 124.74 kg Melva Grimaldo DO Work Phone: [facility] 05-12-2024 18:54-0400 Blood Pressure Location Mara [facility] 05-12-2024 18:54-0400 Diastolic blood pressure 80 mm[Hg] Pandaer [facility] 05-12-2024 18:54-0400 Heart rate 67 /min Mara [facility] 05-12-2024 18:54-0400 Respiratory rate 20 /min Mara [facility] 05-12-2024 18:54-0400 SaO2% (BldA) [Mass fraction] 98 % Albinoangelgreer [facility] 05-12-2024 18:54-0400 Systolic blood pressure 130 mm[Hg] Albinohugh SIRIA [facility] 04-08-2024 13:15-0400 Blood Pressure Location EMELYN POLK [facility] 04-08-2024 13:15-0400 Diastolic blood pressure 76 mm[Hg] EMELYN POLK [facility] 04-08-2024 13:15-0400 Heart rate 65 /min GARY POLK [facility] 04-08-2024 13:15-0400 SaO2% (BldA) [Mass fraction] 98 % GARY POLK [facility] 04-08-2024 13:15-0400 Systolic blood pressure 138 mm[Hg] EMELYN POLK [facility] 03-24-2024 23:56-0400 Diastolic blood pressure 82 mm[Hg] Yuniel Ninfa [facility] 03-24-2024 23:56-0400 Heart rate 77 /min Yuniel Ninfa [facility] 03-24-2024 23:56-0400 Mean blood pressure 99 mm[Hg] Yuniel Ninfa [facility] 03-24-2024 23:56-0400 Respiratory rate 14 /min Yuniel Ninfa [facility] 03-24-2024 23:56-0400 SaO2% (BldA) [Mass fraction] 96 % Yuniel Ninfa [facility] 03-24-2024 23:56-0400 Systolic blood pressure 132 mm[Hg] Yuniel Ninfa [facility] 03-24-2024 23:24-0400 Heart rate 80 /min Yuniel Ninfa [facility] 03-24-2024 23:24-0400 Respiratory rate 20 /min Yuniel Ninfa [facility] 03-24-2024 23:15-0400 Heart rate 81 /min Yuniel Ninfa [facility] 03-24-2024 23:15-0400 Respiratory rate 20 /min Yuniel Ninfa [facility] 03-24-2024 23:15-0400 SaO2% (BldA) [Mass fraction] 99 % Yuniel Ninfa [facility] 03-24-2024 22:50-0400 Body temperature 98.24 [degF] Yuniel Ninfa [facility] 03-24-2024 22:50-0400 Diastolic blood pressure 75 mm[Hg] Yuniel Ninfa [facility] 03-24-2024 22:50-0400 Heart rate 86 /min Yuniel Ninfa [facility] 03-24-2024 22:50-0400 Respiratory rate 24 /min Yuniel Ninfa [facility] 03-24-2024 22:50-0400 SaO2% (BldA) [Mass fraction] 99 % Yuniel Ninfa [facility] 03-24-2024 22:50-0400 Systolic blood pressure 151 mm[Hg] Yuniel Ninfa [facility] 03-21-2024 14:41-0400 Blood Pressure Location Mara BEVERLY [facility] 03-21-2024 14:41-0400 Body temperature 98.24 [degF] Mara BEVERLY [facility] 03-21-2024 14:41-0400 Diastolic blood pressure 80 mm[Hg] Christopher BROWN [facility] 03-21-2024 14:41-0400 Heart rate 70 /min Pandaer SIRIA [facility] 03-21-2024 14:41-0400 Respiratory rate 16 /min Mara BEVERLY [facility] 03-21-2024 14:41-0400 SaO2% (BldA) [Mass fraction] 97 % Mara BEVERLY [facility] 03-21-2024 14:41-0400 Systolic blood pressure 136 mm[Hg] Christopher BROWN [facility] 03-10-2024 18:42-0400 Diastolic blood pressure 86 mm[Hg] Christopher BROWN [facility] 03-10-2024 18:42-0400 Mean blood pressure 103 mm[Hg] Christopher BROWN [facility] 03-10-2024 18:42-0400 Systolic blood pressure 138 mm[Hg] Christopher BROWN [facility] 03-10-2024 18:07-0400 Blood Pressure Location Christhugh BEVERLY [facility] 03-10-2024 18:07-0400 Body temperature 98.24 [degF] Christopher BROWN [facility] 03-10-2024 18:07-0400 Diastolic blood pressure 90 mm[Hg] Christopher BROWN [facility] 03-10-2024 18:07-0400 Heart rate 77 /min Christopher BROWN [facility] 03-10-2024 18:07-0400 Respiratory rate 20 /min Christopher BROWN [facility] 03-10-2024 18:07-0400 SaO2% (BldA) [Mass fraction] 98 % Christopher BROWN [facility] 03-10-2024 18:07-0400 Systolic blood pressure 140 mm[Hg] Christopher BROWN [facility] [place] 12-10-2023 18:36-0500 Blood Pressure Location Christopher BROWN [facility] 12-10-2023 18:36-0500 Diastolic blood pressure 80 mm[Hg] Christopher BROWN [facility] 12-10-2023 18:36-0500 Heart rate 77 /min Christopher BROWN [facility] 12-10-2023 18:36-0500 Respiratory rate 16 /min Christopher BROWN [facility] 12-10-2023 18:36-0500 SaO2% (BldA) [Mass fraction] 96 % Christopher BROWN [facility] 12-10-2023 18:36-0500 Systolic blood pressure 132 mm[Hg] Mara BEVERLY [facility] [place] 10-17-2023 14:46-0500 Blood Pressure Location Mara BEVERLY [facility] 10-17-2023 14:46-0500 Body temperature 97.88 [degF] Mara BEVERLY [facility] 10-17-2023 14:46-0500 Diastolic blood pressure 66 mm[Hg] Mara BEVERLY [facility] 10-17-2023 14:46-0500 Heart rate 65 /min Mara BEVERLY [facility] 10-17-2023 14:46-0500 SaO2% (BldA) [Mass fraction] 97 % Mara BEVERLY [facility] 10-17-2023 14:46-0500 Systolic blood pressure 128 mm[Hg] Mara BEVERLY [facility] 05-17-2023 14:00-0400 Hourly Rounding Melva Grimaldo [facility] 05-17-2023 12:00-0400 Hourly Rounding Melva Grimaldo [facility] 05-17-2023 12:00-0400 Promise to Return Melva Grimaldo [facility] 05-17-2023 11:57-0400 Hourly Rounding Melva Grimaldo [facility] 05-17-2023 11:57-0400 Promise to Return Melva Grimaldo [facility] 05-17-2023 11:37-0400 Heart rate 69 /min Melva Grimaldo [facility] 05-17-2023 11:37-0400 SaO2% (BldA) [Mass fraction] 97 % Melva Grimaldo [facility] 05-17-2023 11:37-0400 Diastolic blood pressure 66 mm[Hg] Melva Grimaldo [facility] 05-17-2023 11:37-0400 Mean blood pressure 83 mm[Hg] Melva Grimaldo [facility] 05-17-2023 11:37-0400 Systolic blood pressure 117 mm[Hg] Melva Grimaldo [facility] 05-17-2023 11:37-0400 Body temperature 98.06 [degF] Melva Grimaldo [facility] 05-17-2023 10:06-0400 Promise to Return Melva Grimaldo [facility] 05-17-2023 08:47-0400 Heart rate 70 /min Melva Grimaldo [facility] 05-17-2023 08:47-0400 SaO2% (BldA) [Mass fraction] 96 % Melva Grimaldo [facility] 05-17-2023 08:47-0400 Diastolic blood pressure 66 mm[Hg] Melva Grimaldo [facility] 05-17-2023 08:47-0400 Mean blood pressure 79 mm[Hg] Melva Jc [facility] 05-17-2023 08:47-0400 Systolic blood pressure 105 mm[Hg] Melva Jc [facility] 05-17-2023 08:47-0400 Body temperature 97.7 [degF] Melva Jc [facility] 05-17-2023 08:11-0400 Heart rate 74 /min Melva Jc [facility] 05-17-2023 08:11-0400 SaO2% (BldA) [Mass fraction] 97 % Melva Jc [facility] 05-17-2023 04:30-0400 Blood Pressure Location Melva Jc [facility] 05-17-2023 04:30-0400 Body temperature 98.06 [degF] Melva Jc [facility] 05-17-2023 04:30-0400 Diastolic blood pressure 74 mm[Hg] Melva Grimaldo [facility] 05-17-2023 04:30-0400 Mean blood pressure 93 mm[Hg] Melva Grimaldo [facility] 05-17-2023 04:30-0400 Respiratory rate 18 /min Melva Grimaldo [facility] 05-17-2023 04:30-0400 Systolic blood pressure 130 mm[Hg] Melva Grimaldo [facility] 05-17-2023 02:18-0400 Body temperature 97.52 [degF] Melva Grimaldo [facility] 05-17-2023 02:18-0400 Mean blood pressure 85 mm[Hg] Melva Grimaldo [facility] 05-16-2023 23:38-0400 Body temperature 97.34 [degF] Melva Grimaldo [facility] 05-16-2023 23:38-0400 Mean blood pressure 95 mm[Hg] Melva Grimaldo [facility] 05-16-2023 23:38-0400 Respiratory rate 17 /min Melva Grimaldo [facility] 05-16-2023 20:25-0400 Respiratory rate 16 /min Melva Grimaldo [facility] 05-16-2023 20:08-0400 Respiratory rate 16 /min Melva Grimaldo [facility] 05-16-2023 16:52-0400 Body temperature 97.34 [degF] Melva Grimaldo [facility] 05-16-2023 16:52-0400 Respiratory rate 12 /min Melva Grimaldo [facility] 05-16-2023 16:40-0400 Respiratory rate 16 /min Melva Grimaldo [facility] 05-16-2023 16:27-0400 Body temperature 97.34 [degF] Melva Grimaldo [facility] 05-16-2023 12:15-0400 Blood Pressure Location Melva Grimaldo [facility] 05-16-2023 12:12-0400 Heart rate 70 /min Melva Grimaldo [facility] 03-23-2023 10:32-0400 Blood Pressure Location Mara BEVERLY [facility] 03-23-2023 10:32-0400 Diastolic blood pressure 74 mm[Hg] Mara BEVERLY [facility] 03-23-2023 10:32-0400 Heart rate 76 /min Mara BEVERLY [facility] 03-23-2023 10:32-0400 Respiratory rate 20 /min Mara BEVERLY [facility] 03-23-2023 10:32-0400 SaO2% (BldA) [Mass fraction] 98 % Mara BEVERLY [facility] 03-23-2023 10:32-0400 Systolic blood pressure 132 mm[Hg] Mara BEVERLY [facility] 01-19-2023 17:36-0400 Diastolic blood pressure 96 mm[Hg] Robyn David [facility] 01-19-2023 17:36-0400 Mean blood pressure 113 mm[Hg] Robyn David [facility] 01-19-2023 17:36-0400 Systolic blood pressure 148 mm[Hg] Robyn David [facility] 01-19-2023 16:43-0400 Blood Pressure Location Robyn David [facility] 01-19-2023 16:43-0400 Diastolic blood pressure 100 mm[Hg] Robyn David [facility] 01-19-2023 16:43-0400 Heart rate 87 /min Robyn David [facility] 01-19-2023 16:43-0400 Respiratory rate 20 /min Robyn David [facility] 01-19-2023 16:43-0400 SaO2% (BldA) [Mass fraction] 97 % Robyn David [facility] 01-19-2023 16:43-0400 Systolic blood pressure 150 mm[Hg] Robyn David [facility] 08-22-2022 09:41-0400 Diastolic blood pressure 66 mm[Hg] Nathaly STANG [facility] 08-22-2022 09:41-0400 Mean blood pressure 92 mm[Hg] Nathaly STANG [facility] 08-22-2022 09:41-0400 Systolic blood pressure 145 mm[Hg] Nathaly STANG [facility] 08-22-2022 09:38-0400 Blood Pressure Location Nathaly TURCIOS [facility] 08-22-2022 09:38-0400 Diastolic blood pressure 71 mm[Hg] Nathaly TURCIOS [facility] 08-22-2022 09:38-0400 Heart rate 69 /min Nathaly TURCIOS [facility] 08-22-2022 09:38-0400 Respiratory rate 18 /min Nathaly TURCIOS [facility] 08-22-2022 09:38-0400 SaO2% (BldA) [Mass fraction] 96 % Nathaly TURCIOS [facility] 08-22-2022 09:38-0400 Systolic blood pressure 147 mm[Hg] Nathaly TURCIOS [facility] 08-12-2022 12:38-0400 Blood Pressure Location Kim DASHAWN [facility] 08-12-2022 12:38-0400 Body temperature 98.42 [degF] Kim TAMEZ [facility] 08-12-2022 12:38-0400 Diastolic blood pressure 86 mm[Hg] Kim TAMEZ [facility] 08-12-2022 12:38-0400 Heart rate 65 /min Kim TAMEZ [facility] 08-12-2022 12:38-0400 SaO2% (BldA) [Mass fraction] 97 % Kim TAMEZ [facility] 08-12-2022 12:38-0400 Systolic blood pressure 134 mm[Hg] Kim TAMEZ [facility] 06-28-2022 09:21-0400 Diastolic blood pressure 77 mm[Hg] Nathalyyon LOPEZG [facility] 06-28-2022 09:21-0400 Mean blood pressure 107 mm[Hg] Nathalyyon LOPEZG [facility] 06-28-2022 09:21-0400 Systolic blood pressure 168 mm[Hg] Nathalyyon LOPEZG [facility] 06-28-2022 09:10-0400 Blood Pressure Location Nathalyyon TURCIOS [facility] 06-28-2022 09:10-0400 Diastolic blood pressure 76 mm[Hg] Nathalyyon LOPEZG [facility] 06-28-2022 09:10-0400 Heart rate 60 /min Nathalyyon TURCIOS [facility] 06-28-2022 09:10-0400 Respiratory rate 18 /min Nathalyyon TURCIOS [facility] 06-28-2022 09:10-0400 SaO2% (BldA) [Mass fraction] 100 % Nathalyyon TURCIOS [facility] 06-28-2022 09:10-0400 Systolic blood pressure 172 mm[Hg] Nathalyyon LOPEZG [facility] 05-18-2022 15:40-0400 Diastolic blood pressure 75 mm[Hg] Joe Brarchichi [facility] 05-18-2022 15:40-0400 Mean blood pressure 101 mm[Hg] Joe Gray [facility] 05-18-2022 15:40-0400 Systolic blood pressure 154 mm[Hg] Joe Gray [facility] 05-18-2022 15:30-0400 Blood Pressure Location Joe Gray [facility] 05-18-2022 15:30-0400 Diastolic blood pressure 75 mm[Hg] Joe Gray [facility] 05-18-2022 15:30-0400 Heart rate 81 /min Joe Gray [facility] 05-18-2022 15:30-0400 Respiratory rate 18 /min Joe Gray [facility] 05-18-2022 15:30-0400 SaO2% (BldA) [Mass fraction] 100 % Joe Gray [facility] 05-18-2022 15:30-0400 Systolic blood pressure 173 mm[Hg] Joe Gray [facility] 04-25-2022 18:29-0400 Diastolic blood pressure 62 mm[Hg] Christopher BROWN [facility] [place] 04-25-2022 18:29-0400 Mean blood pressure 87 mm[Hg] Christopher BROWN [facility] [place] 04-25-2022 18:29-0400 Systolic blood pressure 136 mm[Hg] Christopher BROWN [facility] [place] 04-25-2022 18:12-0400 Blood Pressure Location Christopher BROWN [facility] [place] 04-25-2022 18:12-0400 Body temperature 98.6 [degF] Christopher BROWN [facility] [place] 04-25-2022 18:12-0400 Diastolic blood pressure 90 mm[Hg] Christopher BROWN [facility] [place] 04-25-2022 18:12-0400 Heart rate 76 /min Christopher BROWN [facility] [place] 04-25-2022 18:12-0400 Respiratory rate 18 /min Christopher BROWN [facility] [place] 04-25-2022 18:12-0400 SaO2% (BldA) [Mass fraction] 96 % Christopher BROWN [facility] [place] 04-25-2022 18:12-0400 Systolic blood pressure 156 mm[Hg] Christopher BROWN [facility] [place] 03-14-2022 10:20-0400 Blood Pressure Location Christopher BROWN [facility] [place] 03-14-2022 10:20-0400 Diastolic blood pressure 80 mm[Hg] Christopher BROWN [facility] [place] 03-14-2022 10:20-0400 Heart rate 74 /min Christopher BROWN [facility] [place] 03-14-2022 10:20-0400 Respiratory rate 20 /min Christopher BROWN [facility] [place] 03-14-2022 10:20-0400 SaO2% (BldA) [Mass fraction] 95 % Christopher BROWN [facility] [place] 03-14-2022 10:20-0400 Systolic blood pressure 130 mm[Hg] Mara BEVERLY [facility] 07-15-2020 13:39-0400 BP Diastolic 61 mm[Hg] Senait Vikingstad [facility] 07-15-2020 13:39-0400 BP Systolic 126 mm[Hg] Senait Vikingstad [facility] 07-15-2020 13:39-0400 Pulse (Heart Rate) 67 /min Senait Vikingad [facility] 07-15-2020 13:39-0400 Pulse Oximetry 96 % Senait Vikingad [facility] 07-15-2020 13:39-0400 Respiratory Rate 16 /min [facility]ad [facility] 07-13-2020 10:11-0400 BP Diastolic 75 mm[Hg] Senait Vikingstad [facility] 07-13-2020 10:11-0400 BP Systolic 140 mm[Hg] Senait Vikingstad [facility] 07-13-2020 10:00-0400 BMI (Body Mass Index) 39.89 kg/m2 Senait Vikingstad [facility] 07-13-2020 10:00-0400 Body weight 126.1 kg Senait Vikingstad [facility] 07-13-2020 10:00-0400 Height 177.8 cm Senait Vikingad [facility] 07-13-2020 10:00-0400 Pulse (Heart Rate) 67 /min Senait Vikingstad [facility] 06-14-2020 10:39-0400 BMI (Body Mass Index) 39.31 kg/m2 Carlos Exten [facility] 06-14-2020 10:39-0400 Body weight 124.29 kg Carlos Exten [facility] 06-14-2020 10:39-0400 BP Diastolic 80 mm[Hg] Carlos Exten [facility] 06-14-2020 10:39-0400 BP Systolic 114 mm[Hg] Carlos Exten [facility] 06-14-2020 10:39-0400 Height 177.8 cm Carlos Exten [facility] 06-14-2020 10:39-0400 Pulse (Heart Rate) 73 /min Carlos Carter [facility] 06-02-2020 14:37-0400 BMI (Body Mass Index) 39.39 kg/m2 Javier Fischer [facility] 06-02-2020 14:37-0400 Body weight 124.51 kg Javier Fischer [facility] 06-02-2020 14:37-0400 BP Diastolic 82 mm[Hg] Javier Fischer [facility] 06-02-2020 14:37-0400 BP Systolic 146 mm[Hg] Javier Fischer [facility] 06-02-2020 14:37-0400 Height 177.8 cm Javier Fischer [facility] 06-02-2020 14:37-0400 Pulse (Heart Rate) 71 /min Javier Fischer [facility] 06-02-2020 14:37-0400 Pulse Oximetry 96 % Javier Fischer [facility] 04-20-2020 13:51-0400 BMI (Body Mass Index) 38.31 kg/m2 [facility] 04-20-2020 13:51-0400 Body weight 121.11 kg [facility] 04-20-2020 13:51-0400 BP Diastolic 85 mm[Hg] Vogel [facility] 04-20-2020 13:51-0400 BP Systolic 151 mm[Hg] [facility] 04-20-2020 13:51-0400 Height 177.8 cm [facility] 04-20-2020 13:51-0400 Pulse (Heart Rate) 61 /min [facility] 04-20-2020 13:51-0400 Pulse Oximetry 99 % Vogel [facility] 2020 14:03-0400 BMI (Body Mass Index) 39.67 kg/m2 Vogel [facility] 2020 14:03-0400 Body weight 125.42 kg [facility] 2020 14:03-0400 BP Diastolic 78 mm[Hg] Vogel [facility] 2020 14:03-0400 BP Systolic 144 mm[Hg] Vogel [facility] 2020 14:03-0400 Height 177.8 cm Jaspreet [facility] 2020 14:03-0400 Pulse (Heart Rate) 72 /[facility] 14:03-[facility]00 Pulse Oximetry 99 % Vogel [facility] 2020 10:32-0400 BMI (Body Mass Index) 40.89 kg/m2 Carlos Carter [facility] 2020 10:32-0400 Body weight 129.28 kg Carlos Carter [facility] 2020 10:32-0400 BP Diastolic 70 mm[Hg] Carlos Carter [facility] 2020 10:32-0400 BP Systolic 151 mm[Hg] Carlos Carter [facility] 2020 10:32-0400 Height 177.8 cm Carlos [facility] 2020 10:32-0400 Pulse (Heart Rate) 69 /min Carlosarabella Carter [facility] 09-04-2019 08:31-0500 BMI (Body Mass Index) 40.89 kg/m2 Carlos Carter [facility] 09-04-2019 08:31-0500 Body weight 129.28 kg Carlos Carter [facility] 09-04-2019 08:31-0500 BP Diastolic 84 mm[Hg] Carlos Carter [facility] 09-04-2019 08:31-0500 BP Systolic 147 mm[Hg] Carlos Carter [facility] 09-04-2019 08:31-0500 Height 177.8 cm Carlos [facility] 09-04-2019 08:31-0500 Pulse (Heart Rate) 59 /min Carlos Carter [facility] 03-12-2019 10:07-0400 BMI (Body Mass Index) 40.89 kg/m2 Carlos [facility] 03-12-2019 10:07-0400 BP Diastolic 87 mm[Hg] Carlos Carter [facility] 03-12-2019 10:07-0400 BP Systolic 146 mm[Hg] Carlos Carter [facility] 03-12-2019 10:07-0400 Height 177.8 cm Carlos [facility] 03-12-2019 10:07-0400 Pulse (Heart Rate) 79 /min Carlos Carter [facility] 03-12-2019 10:07-0400 Weight 129.28 kg Carlos Carter [facility] 02-05-2019 14:07-0400 BMI (Body Mass Index) 40.89 kg/m2 Carlos Carter [facility] 02-05-2019 [id number] BP Diastolic 70 mm[Hg] Carlos Carter [facility] 02-05-2019 14:07-0400 BP Systolic 120 mm[Hg] Carlos Carter [facility] 02-05-2019 [id number] Height 177.8 cm Carlos Carter [facility] 02-05-2019 14:07-0400 Pulse (Heart Rate) 91 /min Carlos Carter [facility] 02-05-2019 14:07-0400 Weight 129.28 kg Carlos Carter [facility] Encounters Encounter Date Encounter Type [...] End: 09-30-2024 Patient encounter procedure Mara BEVERLY [facility] [place] Start: 09-26-2024 End: 10-29-2024 ambulatory Mara BEVERLY Facility:[id number] Start: 09-02-2024 End: 09-02-2024 ambulatory Julio Johnson Facility:[facility] Start: 09-02-2024 End: 09-02-2024 Departed Referred Julio Johnson DPM Work Phone: [facility] Start: 08-19-2024 End: 08-19-2024 ambulatory Pandagreer SIRIA Facility:[facility] Start: 08-19-2024 End: 08-19-2024 Patient encounter procedure Mara BEVERLY [facility] Start: 08-19-2024 End: 08-19-2024 Well adult monitoring check done Mara BEVERLY [facility] Start: 07-29-2024 End: 07-29-2024 Bamboo flowsheet Haily Shepard MD Work Phone: [facility] Start: 07-29-2024 End: 07-29-2024 Bamboo flowsheet Haily Shepard MD Work Phone: [facility] Start: 07-29-2024 End: 07-29-2024 ambulatory HAILY SHEPARD Not Available Start: 07-14-2024 End: 09-19-2024 Admission to same day surgery center Melva Grimaldo [facility] Start: 07-14-2024 End: 09-19-2024 ambulatory Melva Grimaldo [facility] Start: 07-10-2024 End: 07-10-2024 Patient encounter procedure Melva Grimaldo DO Work Phone: [facility] Comment on above: Artificial knee join t present, left (Primary Dx); Acute pain of right knee Start: 07-10-2024 End: 07-10-2024 ambulatory MELVA GRIMALDO Not Available Start: 07-10-2024 End: 07-10-2024 ambulatory MELVA GRIMALDO Not Available Start: 06-19-2024 End: 11-03-2024 ambulatory Pandagreer SIRIA Facility[facility] Start: 06-19-2024 End: 10-27-2024 Recurring Pandagreer BEVERLY [facility] Start: 05-21-2024 ambulatory Mara BEVERLY Facil ity:[facility] Start: 05-14-2024 End: 05-14-2024 [facility] Start: 05-14-2024 End: 05-14-2024 Patient encounter procedure Mara BEVERLY [facility] Start: 05-13-2024 End: 05-13-2024 ambulatory MELVA GRIMALDO Not Available Start: 05-12-2024 End: 05-12-2024 Lab Drop off Mara BEVERLY [facility] Start: 05-12-2024 End: 05-12-2024 ambulatory Mara BEVERLY Facility:[facility] Start: 05-12-2024 End: 05-12-2024 Patient encounter procedure Mara BEVERLY [facility] Start: 04-14-2024 End: 04-14-2024 ambulatory Mara BEVERLY Facility[facility] Start: 04-14-2024 End: 04-14-2024 Patient encounter procedure Mara BEVERLY [facility] Start: 04-08-2024 End: 04-08-2024 ambulatory EMELYN POLK Facility:[facility] Start: 04-08-2024 End: 04-08-2024 Patient encounter procedure EMELYN POLK [facility] Start: 03-24-2024 End: 03-25-2024 Emergency department patient visit Yuniel Ocasio [facility] Start: 03-21-2024 End: 03-21-2024 ambulatory [facility] Facility:[facility] Start: 03-21-2024 End: 03-21-2024 Patient encounter procedure Mara BEVERLY [facility] Start: 03-10-2024 End: 03-10-2024 ambulatory Albinohugh BEVERLY Facility:[facility] Start: 03-10-2024 End: 03-10-2024 Patient encounter procedure Mara BEVERLY [facility] Start: 12-10-2023 End: 12-10-2023 [facility]ulatory [facility]: [place] Start: 12-10-2023 End: 12-10-2023 Patient encounter procedure Mara BEVERLY [facility] [place] Start: 10-17-2023 End: 10-17-2023 ambulatory Pandagreer BEVERLY Facility:[facility] Start: 10-17-2023 End: 10-17-2023 Patient encounter procedure Mara BEVERLY [facility] Start: 05-16-2023 End: 05-17-2023 Admission to same day surgery center Melva Grimaldo [facility] Start: 03-26-2023 End: 03-26-2023 Patient encounter procedure Mara BEVERLY [facility] Start: 03-23-2023 End: 03-23-2023 Encounter for general adult medical examination with abnormal findings Mara BEVERLY [facility] [place] Start: 03-23-2023 End: 03-23-2023 Patient encounter procedure Mara BEVERLY [facility] [place] Start: 01-19-2023 End: 01-19-2023 Patient encounter procedure Robyn Vinnie Hernandez [facility] [place] Start: 08-29-2022 End: 08-29-2022 Encounter for general adult medical examination with abnormal findings Mara BEVERLY [facility] [place] Start: 08-29-2022 End: 08-29-2022 Patient encounter procedure Mara BEVERLY [facility] [place] Start: 08-22-2022 End: 08-22-2022 Patient encounter procedure Nathaly TURCIOS [facility] Start: 08-12-2022 End: 08-12-2022 Patient encounter procedure Kim TAMEZ [facility] Start: 08-02-2022 End: 08-03-2022 ambulatory [facility] Facility: Start: 07-20-2022 End: 07-20-2022 Patient encounter procedure Nathaly TURCIOS [facility] Start: 06-28-2022 End: 06-28-2022 Patient encounter procedure Nathaly TURCIOS [facility] Start: 05-18-2022 End: 05-18-2022 Patient encounter procedure Joe Gray [facility] Start: 04-25-2022 End: 04-25-2022 Patient encounter procedure Mara BEVERLY [facility] [place] Start: 03-14-2022 End: 03-14-2022 Patient encounter procedure Mara BEVERLY [facility] [place] Start: 09-19-2021 End: 02-06-2022 Recurring SALOME EDMONDS [facility] Start: 12-23-2020 End: 12-23-2020 Orders Only Shaylee Masue Theodore Work Phone: [facility] Start: 08-13-2020 End: 08-14-2020 Patient encounter procedure CARLOS CARTER [facility] Ambulatory Start: 07-15-2020 End: 07-15-2020 Patient encounter procedure CARLOS GERBER [facility] Ambulatory Start: 07-15-2020 End: 07-15-2020 Subsequent hospital visit by physician Senait Ochoa Work Phone: [facility] Interventional Radiology Comment on above: Charcot's joint of l eft foot; Charcot's joint of left foot Start: 07-13-2020 End: 07-17-2020 Patient encounter procedure CARLOS CARTER [facility] Ambulatory Start: 07-13-2020 End: 07-18-2020 Office outpatient new 45 minutes Carlos Carter Work Phone: [facility] Comment on above: Charcot's joint of l eft foot (Primary Dx); Neuropathy, idiopathic; Pain Start: 06-14-2020 End: 06-14-2020 Patient encounter procedure CARLOS CARTER [facility] Amb[facility] Start: 06-14-2020 End: 06-14-2020 Office outpatient visit 15 minutes Carlos Crater Work Phone: [facility] Orthopedic [facility] Sports Medicine Comment on above: Charcot's joint of l eft foot (Primary Dx); Neuropathy, idiopathic Start: 06-02-2020 End: 06-02-2020 Patient encounter procedure JAVIER FONGYKHOCHRISTOPH [facility] Start: 06-02-2020 End: 06-02-2020 Office outpatient visit 25 minutes Javier Fischer Work Phone: [facility] Comment on above: History functional e ndoscopic sinus surgery (FESS) with revision (Primary Dx); Sinus pressure; Chronic allergic rhinitis; Fatigue, unspecified type Start: 04-20-2020 End: 04-20-2020 Patient encounter procedure JASPREET CONTI [facility] Start: 04-20-2020 End: 04-20-2020 Office outpatient visit 15 minutes Jaspreet Conti Work Phone: [facility] Comment on above: Recurrent sinusitis (Primary Dx); Chronic rhinitis Start: 2020 End: 2020 Patient encounter procedure MARA BEVERLY [facility] Start: 2020 End: 2020 Office outpatient new 30 minutes Mara Beverly Work Phone: [facility] Comment on above: Chronic rhinitis (Pr imary Dx); Acute recurrent frontal sinusitis; Fatigue, unspecified type Start: 2020 End: 03-10-2020 Patient encounter procedure CARLOSARABELLA FOREMANE EMMA [facility] Start: 2020 End: 2020 Subsequent hospital visit by physician Carlos Carter Work Phone: [facility] Ortho Clinic Comment on above: Pain Start: 2020 End: 2020 Office outpatient visit 15 minutes Carlos Carter Work Phone: [facility] Comment on above: Charcot's joint of l eft foot (Primary Dx); Neuropathy, idiopathic Start: 01-13-2020 Patient encounter procedure JAVIER FONGYKHODKBonifacio [facility] Start: 09-04-2019 End: 09-05-2019 Patient encounter procedure CARLOS CARTER [facility] Start: 09-04-2019 End: 09-04-2019 Subsequent hospital visit by physician Carlos Carter Work Phone: [facility] Ortho Clinic Comment on above: Charcot's joint of l eft foot Start: 09-04-2019 End: 09-04-2019 Office outpatient visit 15 minutes Carlos Carter Work Phone: [facility] Sports [facility] Comment on above: Charcot's joint of l eft foot (Primary Dx); Neuropathy, idiopathic Start: 03-12-2019 End: 03-12-2019 Patient encounter procedure Carlos Carter Work Phone: [facility] Ortho Clinic Comment on above: Pain Start: 03-12-2019 End: 03-12-2019 Office outpatient visit 15 minutes Carlos Carter Work Phone: [facility] Comment on above: Charcot's joint of l eft foot (Primary Dx) Start: 02-06-2019 End: 02-07-2019 Patient encounter procedure PROVIDER NOT IN [facility] Start: 02-06-2019 End: 02-06-2019 Patient encounter procedure Provider Not In [facility] Radiology External Films Comment on above: Arrived Start: 02-05-2019 End: 02-05-2019 Subsequent hospital visit by physician Carlos Zabrina Emma Work Phone: [facility] Ortho Clinic Comment on above: Pain Start: 02-05-2019 End: 02-05-2019 Office outpatient new 30 minutes Carlos Carter Work Phone: [facility] Orthopedic [facility] Sports [facility] Comment on above: Charcot's joint of l eft foot (Primary Dx); Neuropathy, idiopathic Procedures Date Procedure Procedure Detail Performing Clinician Start: 11-20-2024 Arthrocentesis aspir &/inj major jt/bursa w/o us Melva Grimaldo DO Work Phone: Start: 07-29-2024 End: 07-29-2024 [facility] medical xm&satnam acosta new pt 1/> vst Type 2 diabetes mellitus without complication, without long-term current use of insulin (CMS/[facility]) Haily Shepard MD Work Phone: [...] of left foot per dr johnson @ [facility]. Start: 08-18-2020 Radiofrequency dener vation of [...] of sacroil iac joint using fluoroscopic guidance [employer] Comment on above: bilat SIJI- 50% reli ef Start: 09-04-2019 X-ray of left foot Rashad y Zabrina Exten Work Phone: Start: 08-27-2019 Sacroiliac joint injection 7 [employer] GREY Comment on above: B/L 80% relief. Start: 05-28-2019 Injection of sacroil iac joint using fluoroscopic guidance [employer] Comment on above: B/L 75% relief Start: 03-12-2019 X-ray of left foot Rashad y Zabrina Exten Work Phone: Start: 02-06-2019 Radiographic imaging procedure External Transcribed Start: 02-06-2019 Magnetic resonance imaging External Transcribed Start: 02-05-2019 Injection of sacroil iac joint using fluoroscopic guidance [employer] Comment on above: 90% relief since pro cedure. Start: 11-13-2018 Left Transforaminal Epidural Steroid Injection 10 [facility] Comment on above: left L5+S1 approx 50 % relief X 2 weeks Start: 09-25-2018 Epidural injection o f lumbar spine using fluoroscopic guidance [email or web address] Comment on above: L3-L4 -25% relief si nce injection x 2 weeks Start: 07-17-2018 Transforaminal Epidu ral Steroid Injection 12 [facility] ([facility] Comment on above: Left -70% relief x o ne month. Pt. reports 40% relief today. Start: 06-12-2018 epidural steroid injection 13 [facility] Comment on above: L5-S1 60% relief for 3 weeks Start: 04-10-2018 transforaminal epidu ral steroid injection 14 [employer] Comment on above: left L5+S1 80% relie [...] 02-17-2027 Tetanus vaccination Tetanus: Every 1 0yrs [facility] Start: 07-30-2025 End: 07-30-2025 Patient encounter procedure 07/30/2025 11:00 AM EDT Office Visit [facility] [address] [place] [address] Haily Shepard MD [address] [place] [address] [facility] Start: 05-14-2025 End: 05-14-2025 Patient encounter procedure 05/14/2025 9:00 AM EDT Office Visit [facility] [address] [place] [id number] Melva Grimaldo, DO [address] [place] [address] [facility] Start: 11-20-2024 End: 11-20-2024 Patient encounter procedure 11/20/2024 9:30 AM EST Office Visit [facility] [address] [place] [id number] Melva Grimaldo, DO [address] [place] [address] Acute pain of right knee (Primary Dx) [facility] Comment on above: Acute pain of right knee (Primary Dx) Start: 07-29-2024 End: 07-29-2024 Patient encounter procedure [facility] Comment on above: Arrived Start: 06-22-2024 Influenza vaccination Influenza Vacc ine (#1) [facility] Start: 2024 Pneumococcal Vaccine : 65+ Years (1 of 1 - PCV) Pneumococcal Vaccine: 65+ Years (1 of 1 - PCV) [facility] Start: 06-22-2020 Influenza vaccinatio n given [facility] Start: 06-14-2020 End: 06-14-2020 Office Visit 06/14/2020 Office Visit Orthopedic Surgery Exten, Carlos Gerber MD [address] [place] [address] [phone] [facility] Start: 06-02-2020 End: 06-02-2020 Office Visit 06/02/2020 Office Visit Otolaryngology Javier Fischer MD [address] [place] [address] [phone] [facility] Start: 04-20-2020 End: 04-20-2020 Office Visit 04/20/2020 Office Visit Otolaryngology Lead Recoverer, Jaspreet Diaz CNP [address] [place] [address] [phone] [facility] Start: 09-04-2019 End: 09-04-2019 Office Visit 09/04/2019 Office Visit Orthopedic Surgery Exten, Carlos Gerber MD [address] [place] [address] [phone] [facility] Start: 06-22-2019 Influenza vaccinatio n given [facility] Start: 06-22-2018 Influenza vaccinatio n given SEQUENTIAL INFLUENZA VACCINE (#1) [facility] Start: 2009 Administration of he rpes zoster vaccine Zoster Vaccines (1 of 2) [facility] Start: 2009 Screening for malign ant neoplasm of colon [facility] Start: 1999 Screening for malign ant neoplasm of breast Mammogram [facility] Start: 1989 Screening for malign ant neoplasm of cervix [facility] Start: 1980 Screening for malign ant neoplasm of cervix Pap Smear [facility] Start: 1977 Hepatitis C antibody , confirmatory test Hepatitis C Screening [facility] Start: 1975 COVID-19 Vaccine (1 of 2) COVID-19 Vaccine (1 of 2) [facility] Start: 1974 HIV screening HIV Screening [place] Start: 1971 Adolescent depressio n screening assessment Depression Screening (PHQ9) [facility] Start: 1962 History and physical examination, annual for health maintenance Wellness Visit [facility] Start: 1959 Hepatitis C antibody , confirmatory test HEPATITIS C SCREENING [facility] Start: 1959 Protein mass conc Mammogram [facility] Start: 1959 Screening for malign ant neoplasm of cervix PAP SMEAR [facility] Start: 1959 Screening for malign ant neoplasm of colon [facility] Start: 1959 Screening mammography [facility] Start: 1959 Tetanus vaccination TETANUS EVERY 10 YR [facility] End: 04-20-[address] Sinus Imaging Routine Recurrent sinusitis 1 Occurrences starting 04/20/2020 until 04/20/2021 [facility] Comment on above: 1 Occurrences starti ng 04/20/2020 until 04/20/2021 End: 07-13-2020 Epidural steroid injection VR Epidural Steroid Inj Imaging Routine Charcot's joint of left foot Once for 1 Occurrences starting 07/13/2020 until 07/13/2020 [facility] Comment on above: Once for 1 Occurrenc es starting 07/13/2020 until 07/13/2020 Epidural steroid injection VR Epidural Steroid Inj Imaging Routine Charcot's joint of left foot 07/15/2020 1:42 PM EDT [facility] End: 02-05-2019 X-ray of left foot XR Foot Left 3+ Views (Standard) Routine Pain Once for 1 Occurrences starting 02/05/2019 until 02/05/2019 [facility] Comment on above: Once for 1 Occurrenc es starting 02/05/2019 until 02/05/2019 X-ray of left foot XR Foot Left 3+ Views (Standard) Routine Pain 02/05/2019 2:30 PM EDT [facility] End: 02-05-2019 XR Ankle Left 2 Views XR Ankle Left 2 Views Routine Pain Once for 1 Occurrences starting 02/05/2019 until 02/05/2019 [facility] Comment on above: Once for 1 Occurrenc es starting 02/05/2019 until 02/05/2019 XR Ankle Left 2 Views XR Ankle L eft 2 Views Routine Pain 02/05/2019 2:24 PM EDT [facility] Immunizations Immunization Date Immunization Notes Care Provider Anirudh velazquez 10-06-2023 influenza virus vaccine, unspecified formulation Mara BEVERLY [facility] 09-21-2023 influenza virus vaccine, unspecified formulation Mara BEVERLY [facility] 06-28-2023 zoster vaccine recombinant Mara BEVERLY [facility] 03-27-2023 zoster vaccine recombinant Mara BEVERLY [facility] 09-18-2022 COVID-19, mRNA, LNP-S, bivalent, PF, 50 mcg/0.5 mL dose Robyn Hernandez [facility] 09-18-2022 influenza, injectable, quadrivalent, preservative free Robyn David [facility] [place] 09-20-2021 COVID-19, mRNA, LNP-S, PF, 100 mcg or 50 mcg dose SALOME EDMONDS [facility] 08-19-2021 influenza virus vaccine, unspecified formulation; Translations: [Fluzone PF Quadrivalent ] SALOME EDMONDS [facility] Comment on above: Reason for Medicatio n: Prophylaxis 01-21-2021 COVID-19, mRNA, LNP-S, PF, 30 mcg/0.3 mL dose; Translations: [Pfizer-BioNTech COVID-19 Vaccine] SALOME EDMONDS [facility] Comment on above: Reason for Medicatio n: Prophylaxis 12-24-2020 COVID-19, mRNA, LNP-S, PF, 30 mcg/0.3 mL dose; Translations: [Pfizer-BioNTech COVID-19 Vaccine] SALOME EDMONDS [facility] Comment on above: Reason for Medicatio n: Prophylaxis 08-30-2020 influenza virus vaccine, unspecified formulation SALOME EDMONDS [facility] 08-04-2020 influenza virus vaccine, unspecified formulation Kim ATMEZ [facility] 09-01-2019 influenza virus vaccine, live, attenuated, for intranasal use SALOME EDMONDS [facility] 09-02-2018 influenza virus vaccine, unspecified formulation SALOME EDMONDS [facility] 02-17-2017 tetanus toxoid, reduced diphtheria toxoid, and acellular pertussis vaccine, adsorbed; Translations: [Adacel (Tdap)] SALOME EDMONDS [facility] NEGATED: Highlighted row has not occurred!08-19-2024 influenza virus vaccine, unspecified formulation Mara BEVERLY [facility] [place] NEGATED: Highlighted row has not occurred!08-20-2020 influenza virus vaccine, unspecified formulation SALOME EDMONDS [facility] Payers Date Payer Category Payer Self-pay 2023 Medicare (Managed Care) [employer] [id number] 2023 Unknown [employer] [id number] 2023-Present [address] [place] [id number] 2023 Medicare [id number] 2019 Unknown [employer] S UPERMED PPO xxxxxxxxxxxx 2019-Present xxxxxxxxxxxx [id number] 2019 Unknown [employer] S UPERMED PPO [id number] 2019-Present [id number] .7.3.072514.315 2019 Unknown [id number] 2008 Unknown xxxxxxxxxx [id number] .7.3.769117.315 2008 Unknown [id number] 1959 Self-pay [id number] 1959 Unknown [id number] 2.16.840.1.413780.3.579.2 .900 1959 Unknown [id number] 2.16.840.1.183960.3.579.2 .900 1959 Unknown [id number] 2.16.840.1.401844.3.579.2 .1959 Unknown [id number] 2.16.840.1.319337.3.579.2 .1959 Unknown [id number] 2.16.840.1.645780.3.579.2 .1959 Unknown [id number] 2.16.840.1.003620.3.579.2 .1959 Unknown [id number] 2.16.840.1.426361.3.579.2 .1959 Unknown [id number] 2.16.840.1.764366.3.579.2 .1959 Unknown [id number] 2.16.840.1.559521.3.579.2 .1959 Unknown [id number] 2.16.840.1.272250.3.579.2 .1959 Unknown [id number] 2.16.840.1.152208.3.579.2 .1959 Unknown [id number] 2.16.840.1.210101.3.579.2 .1959 Unknown [id number] 2.16.840.1.587589.3.579.2 .1959 Unknown [id number] 2.16.840.1.832257.3.579.2 .1959 Unknown [id number] 2.16.840.1.802579.3.579.2 .1959 Unknown [id number] 2.16.840.1.389074.3.579.2 .903 1959 Unknown [id number] 2.16.840.1.915732.3.579.2 .903 1959 Unknown [id number] 2.16.840.1.273714.3.579.2 .90 1959 Unknown [id number] 2.16.840.1.614877.3.579.2 .593 1959 Unknown [id number] 2.16.840.1.326079.3.579.2 .72 1959 Unknown [id number] 2.16.840.1.961842.3.579.2 .1959 Unknown [id number] 2.16.840.1.006202.3.579.2 .1959 Unknown [id number] 2.16.840.1.237439.3.579.2 .1959 Unknown [id number] 2.16.840.1.454924.3.579.2 .1959 Unknown [id number] 2.16.840.1.481537.3.579.2 .1959 Unknown [id number] 2.16.840.1.485814.3.579.2 .1959 Unknown [id number] 2.16.840.1.680470.3.579.2 .1959 Unknown [id number] 2.16.840.1.787691.3.579.2 .1959 Unknown [id number] 2.16.840.1.328519.3.579.2 .1959 Unknown [id number] 2.16.840.1.726896.3.579.2 .1959 Unknown [id number] 2.16.840.1.794050.3.579.2 .727 1959 Unknown [id number] 2.16.840.1.127212.3.579.2 .72 1959 Unknown [id number] 2.16.840.1.553461.3.579.2 .72 1959 Unknown [id number] 2.16.840.1.450407.3.579.2 .72 1959 Unknown [id number] 2.16.840.1.499202.3.579.2 .72 1959 Unknown [id number] 2.16.840.1.051946.3.579.2 .1959 Unknown [id number] 2.16.840.1.739081.3.579.2 .72 1959 Unknown [id number] 2.16.840.1.419491.3.579.2 .1258 1959 Unknown [id number] 2.16.840.1.043035.3.579.2 .1258 1959 Unknown [id number] 2.16.840.1.441229.3.579.2 .1258 1959 Unknown [id number] 2.16.840.1.807583.3.579.2 .1258 1959 Unknown [id number] 2.16.840.1.602937.3.579.2 .125 1959 Unknown [id number] 2.16.840.1.888518.3.579.2 .125 1959 Unknown [id number] 2.16.840.1.911013.3.579.2 .1259 Private Health Insurance [employer] [id number] Unknown [id number] Social History Date Type Detail Facility Start: 02-05-2019 End: 04-06-2023 Tobacco smoking status NHIS Never smoker [facility] Comment on above: Denies use. Start: 02-05-2019 History SDOH Alcohol Frequency 1 [facility] Sex Assigned At Not on file [facility] Start: 2020 End: 04-20-2020 Alcohol intake Lifetime non-drinker (finding) [facility] Exposure to SARS-CoV -2 (event) Not sure [facility] Start: 06-14-2020 End: 04-06-2023 Tobacco use and exposure Never used [facility] Tobacco smoking status Never [facility] Comment on above: Denies use. Start: 07-10-2024 End: 11-20-2024 Sex Assigned At Female [facility] Start: 07-10-2024 End: 11-20-2024 Alcoholic beverage intake Ex-drinker (finding) [facility] Start: 07-10-2024 End: 11-20-2024 History of Social function [facility] Start: 06-12-2023 Alcohol Comment Haven't drank measureable amount since I was in 89 [facility] Start: 1960 Sex assigned at Female [facility] Start: 03-11-2023 Gender identity Identifies as female gender (finding) [facility] Start: 03-11-2023 Sexual orientation Heterosexual (fin ding) [facility] Work Phone: Start: 09-04-2024 Sex Female (finding) [facility] Medical Equipment Procedure Code Equipment Code Equipment Origin al Text Equipment Identifier Dates [id number] FDA Start: 07-05-2020 KNEE TOTAL ARTHROPLASTY Jc DOMINIQUEMelva 04/02/23 Non Biological Knee L {[id number]{ [id number] FDA Start: 04-02-2023 KNEE TOTAL ARTHROPLASTY REVISION Jc DOMINIQUEMelva 05/16/23 Biological Knee L {[id number]{ [id number] {[id number]{[id number]{21} [id number] FDA Start: 05-16-2023 Goals Date Patient Goal Desired Activity /State Personal health goal Functional Status Date Assessment Result Facility 09-30-2024 Functional Status N/A [facility] 08-19-2024 Functional Status N/A [facility] 08-19-2024 Functional Status [facility] 05-12-2024 Functional Status N/A [facility] 04-08-2024 Functional Status N/A [facility] 03-24-2024 Functional Status N/A [facility] 03-21-2024 Functional Status N/A [facility] 03-10-2024 Functional Status N/A [facility] 12-10-2023 Functional Status N/A [facility] 10-17-2023 Functional Status N/A [facility] 05-16-2023 Functional Status N/A [facility] 05-15-2023 Functional Status No [facility] 03-23-2023 Functional Status N/A [facility] 01-19-2023 Functional Status N/A [facility] 08-22-2022 Functional Status N/A [facility] 08-12-2022 Functional Status N/A [facility] 06-28-2022 Functional Status N/A [facility] 05-18-2022 Functional Status N/A [facility] 04-25-2022 Functional Status N/A [facility] Clinical Notes 03-13-2022 to 11-20-2024 Nicole [...] OTHER SURGICAL HISTORY Right elbow thermal fasciotomy [place] RECONSTRUCTION CLEFT FOOT 12/2020 RETINAL LASER PROCEDURE [...] 2:51 PM EST documented in this encounter [facility] 09-28-2024 Hospital Discharge instructions Patient Education 09/27/2024 [...] to your foot. Wear well-fitted footwear. Take detg-dmd-ndagelj and prescription medicines only as told by [...] provider. Document Revised: 10/11/2023 Document Reviewed: 10/11/2023 [employer] Patient Education 2023 [employer]. Follow Up Care 09/25/2024 14:53:36 With:Mara BEVERLY MD, FAM Address: [place] [address]- When: Unknown Comments:see me in [facility] 09-27-2024 Note Patient Education Orthopedics [...] your foot. Wear well-fitted footwear. ??? Take bwoh-nqx-bxlchtl and prescription medicines only as told by [...] problems with your (more content not included)... [facility] 08-19-2024 Hospital Discharge instructions Patient Education [...] powder, vinegar, hot sauces, and barbecue sauce. ?[place] fruit juices and citrus fruits, such as oranges, portia, and limes. ?Tomato-based foods, such as red sauce, chili, salsa, and pizza with red sauce. ?Fried and fatty foods, such as donuts, armenian fries, potato chips, and high-fat dressings. ?High-fat [...] ask your health care provider. Medicines Take uirz-vhp-duihwen and prescription medicines only as told by [...] told by your health care provider. Take wuvz-sxt-arlgbgl and prescription medicines only as told by [...] provider. Document Revised: 04/13/2021 Document Reviewed: 04/13/2021 [employer] Patient Education 2023 [employer]. 08/19/2024 15:50:54 Chronic Kidney Disease, Adult Chronic [...] Follow these instructions at home: Medicines Take muca-jzc-jryrezx and prescription medicines only as told by [...] is important. Where to find more information [employer] Patients: www.aakp.org National Kidney Foundation: www.kidney.org [employer] Kid[employer] Fund: www.akfinc.org Life Options: www.lifeoptions.org Kidney [...] provider. Document Revised: 01/12/2021 Document Reviewed: 01/12/2021 [employer] Patient Education 2023 [employer]. 08/19/2024 15:50:52 Hypothyroidism Hypothyroidism Hypothyroidism is when [...] away. Follow these instructions at home: Take oozv-dzz-sutqvtm and prescription medicines only as told by [...] provider. Document Revised: 10/10/2022 Document Reviewed: 10/10/2022 [employer] Patient Education 2023 [employer]. 08/19/2024 15:50:49 DASH Eating Plan DASH Eating [...] Dairy Whole or 2% milk, cream, and vfuk-wvy-wnyy. Whole or full-fat cream cheese. Whole-fat or [...] more information National Heart, Lung, and Blood [place] (NHLBI): nhlbi.nih.gov [place] [employer] Association (AHA): heart.org Academy of Nutrition and Dietetics: eatright.org National Kidney Foundation (NKF): kidney.org This information is not intended to replace advice given to you by your health care provider. Make sure you discuss any questions you have with your health care provider. Document Revised: 10/25/2023 Document Reviewed: 10/25/2023 Applifier Patient Education 2023 [employer]. 08/19/2024 15:50:26 Dyslipidemia Dyslipidemia Dyslipidemia is an [...] quitting, ask your health care provider. Take lrht-lfi-zdgngyi and prescription medicines only as told by [...] provider. Document Revised: 05/11/2023 Document Reviewed: 12/12/2021 Applifier Patient Education 2023 [employer]. 08/19/2024 15:50:16 Diabetes Mellitus and Foot Care Diabetes Mellitus and Foot Care Diabetes, also called diabetes mellitus, may cause problems with your feet and legs because of poor blood flow (circulation). Poor circulation may make your skin: Become thinner and sugar drier. Break more easily. Heal more slowly. [...] right away. Where to find more information [place] Diabetes Association: diabetes.org Association of Diabetes Care [...] provider. Document Revised: 04/11/2023 Document Reviewed: 04/11/2023 Applifier Patient Education 2023 [employer]. Follow Up Care 05/12/2024 19:41:16 With:Mara BEVERLY MD, FAM Address: [address] [place] [address] [place] [address]- When:6 months Comments:staff call [facility] need her recent labs and EKG from 08/12/24 [facility] [place] 08-19-2024 Note Patient Education Endocrinology Hypothyroidism Hypothyroidism [...] Follow these instructions at home: ??? Take durp-bxq-egyhgxt and prescription medicines only as told by [...] provider. Document Revised: 10/10/2022 Document Reviewed: 10/10/2022 Applifier Patient Education ? 2023 [employer]. Diabetes Mellitus and Foot Care Diabetes, also called diabetes mellitus, may cause problems with your feet and legs because of poor blood flow (circulation). Poor circulation may make your skin: ??? Become thinner and sugar drier. ??? Break more easily. ??? Heal more slowly. (more content not included)... [facility] 07-29-2024 History of Present illness Narrative Assessment/Plan Diabetes Mellitus without sign of diabetic retinopathy on dilated retinal examination today OU: Discussed the pathophysiology of diabetes and its effect on the eye. Stressed the importance of strong glucose control. Advised of importance of at least yearly dilated examinations, but to contact us immediately for any problems or concerns. documented in this encounter [facility] 07-10-2024 History of Present illness Narrative Images [...] OTHER SURGICAL HISTORY Right elbow thermal fasciotomy [place] RECONSTRUCTION CLEFT FOOT 12/2020 SINUS SURGERY 1994 [...] We discussed the role of Visco supplementation, senior living role of total knee replacement. Follow up [...] took 35 minutes. documented in this encounter [facility] 05-10-2024 Hospital Discharge instructions Patient Education 05/10/2024 [...] plan? Your health care provider or certified histologic technician can help you make a plan for [...] (heat stroke). Where to find more information [place] Diabetes Association: www.diabetes.org Summary Exercising regularly is important for overall health, especially for people who have diabetes mellitus. Exercising has many health benefits. It increases muscle strength and bone density and reduces body fat and stress. It also lowers and controls blood glucose. Your health care provider or certified histologic technician can help you make an activity plan [...] provider. Document Revised: 07/05/2020 Document Reviewed: 07/05/2020 [employer] Patient Education 2022 [employer]. Follow Up Care 12/10/2023 19:22:31 With:Mara BEVERLY MD, FAM Address: When:Within 3 Month(s) Comments:plan A1C at visit, please set up bacxk to back with medicare exam same date thanks [facility] [place] 05-10-2024 Note Patient [...] plan? Your health care provider or certified histologic technician can help you make a plan for [...] stroke). Where to find more information ? [place] Diabetes Association: www.diabetes.org Summary ? Exercising regularly is important for overall health, especially for people who have diabetes mellitus. ? Exercising has many health benefits. It increases muscle strength and bone density and reduces body fat and stress. It also lowers and controls blood glucose. ? Your health care provider or certified histologic technician can help you make an activity plan [...] provider. Document Revised: 07/05/2020 Document Reviewed: 07/05/2020 [employer] Patient Education ? 2022 [employer]. [facility] 04-08-2024 Hospital Discharge instructions Patient Education [...] numbers. This can be done either in [place] ([place] or metric measurements. Note that charts and online BMI calculators are available to help you find your BMI quickly and easily without having to do these calculations yourself. To calculate your BMI in [place] ([place] measurements: 1.Measure your weight in pounds [...] Centers for Disease Control and Prevention: www.cdc.gov [place] Heart Association: www.heart.org National Heart, Lung, and Blood [place]: www.nhlbi.nih.gov Summary Body mass index (BMI) is a number that is calculated from a person's weight and height. BMI may help estimate how much of a person's weight is composed of fat. BMI can help identify those who may be at higher risk for certain medical problems. BMI can be measured using [place] measurements or metric measurements. BMI charts are used to identify whether you are underweight, normal weight, overweight, or obese. This information is not intended to replace advice given to you by your health care provider. Make sure you discuss any questions you have with your health care provider. Document Revised: 06/30/2020 Document Reviewed: 05/07/2020 [employer] Patient Education 2022 [employer]. 04/08/2024 15:40:09 Bedbugs, Osys-ls-Rclo Bedbugs Bedbugs are tiny bugs that live [...] lips, face, mouth, tongue, or throat. ?Feeling digital publishing specialist the face. ?Itchy, red, swollen areas of [...] provider. Document Revised: 12/26/2022 Document Reviewed: 12/21/2022 [employer] Patient Education 2022 [employer]. Follow Up Care 04/08/2024 11:55:11 With:Mara BEVERLY MD [facility] Address: [address] [place], [place] [id number]- When: Unknown [facility] 03-25-2024 Hospital Discharge instructions [...] breathing (shortness of breath). 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 Chest tightness. Tiredness (fatigue) with minimal [...] condition. Follow these instructions at home: Take lyux-lfc-nayzhyn and prescription medicines only as told by [...] provider. Document Revised: 07/26/2022 Document Reviewed: 07/17/2022 Applifier Patient Education 2022 [employer]. Follow Up Care 03/24/2024 22:42:12 With:Mara BEVERLY Address: [place] [address]- Business (1) When:Within 3 Day(s) [facility] 03-24-2024 Evaluation + Plan note Extrac mary [...] cough and congestion, 200 mL, Refill(s) 0, Sponsia #37, 177, cm, 03/24/24 22:52:00 EDT, Height/Length Dosing, 128, kg, 03/24/24 22:52:00 EDT, Weight Dosing B-Type Natriuretic Peptide Basic Metabolic Panel CBC w/ Auto Diff ECG 12 Lead Adult ED Cardiac Monitoring eGFR Influenza A&B Ag Oxygen Saturation Oxygen Therapy PT & PTT Rapid COVID Antigen [place] Saline Lock Insert Troponin 0 Hr. Troponin 1 Hr. XR Chest Single View Future Appointments Appointment Date:05/12/2024 06:40:00 PM Scheduled Provider:Mara BEVERLY MD Location:[facility] [place] Appointment Type:FM Open Appointment Date:05/21/2024 02:15:00 PM Scheduled Provider:Farzad FRANCE MD Location:[facility] Appointment Type:URO New Patient Future Scheduled Tests Laboratory* TSH With T4fr Reflex 12/08/23 * Vitamin D 25 Hydroxy 12/10/23 * CBC w/ Auto Diff 12/08/23 * Comprehensive Metabolic Panel 12/08/23 * Lipid Panel 12/08/23 Radiology* MA Mamm Screen w/CAD if perf and 3D Kenji 12/08/23 [facility]05-31-2024 Hospital Discharge instructions Patient Education 03/21/2024 13:41:57 Asthma, Adult, Zatf-cm-Fquf Asthma, Adult Asthma is a condition that [...] (dander). Cockroaches. Pollen. Air pollution (like household medical field representative, wood smoke, smog, or chemical odors). What [...] of polyester or cotton. General instructions Take yzxn-yeb-ocnnsfy and prescription medicines only as told by [...] pollute the air. These may include household medical field representative, wood smoke, smog, or chemical odors. This information is not intended to replace advice given to you by your health care provider. Make sure you discuss any questions you have with your health care provider. Document Revised: 07/17/2022 Document Reviewed: 07/17/2022 Applifier Patient Education 2022 [employer]. Follow Up Care 03/21/2024 11:33:38 With:Mara BEVERLY MD, FAM Address: When: only if needed [facility] [place] 05-20-2024 Hospital Discharge instructions Patient Education 03/10/2024 [...] or grass. Air pollutants such as household medical field representative, aerosol sprays, strong odors, and smoke of [...] Follow these instructions at home: Medicines Take dqjq-rhk-blullsa and prescription medicines only as told by [...] provider. Document Revised: 07/30/2022 Document Reviewed: 07/30/2022 Applifier Patient Education 2022 [employer]. Follow Up Care 03/10/2024 16:13:14 With:Mara BEVERLY MD, FAM Address: When: only if needed [facility] [place] 02-19-2024 Hospital Discharge instructions Patient Education 12/10/2023 [...] Do not chew gum. General instructions Take dflt-grm-ghzftpe and prescription medicines only as told by [...] important. Where to find more information National [place] of Dental and Craniofacial Research: www.nidcr.nih.gov Contact [...] provider. Document Revised: 05/21/2022 Document Reviewed: 05/21/2022 Applifier Patient Education 2022 [employer]. 12/08/2023 16:12:10 DASH Eating Plan DASH Eating [...] Dairy Whole or 2% milk, cream, and zrig-ely-pbti. Whole or full-fat cream cheese. Whole-fat or [...] more information National Heart, Lung, and Blood [place]: www.nhlbi.nih.gov [place] Heart Association: www.heart.org Academy of Nutrition and [...] provider. Document Revised: 09/10/2020 Document Reviewed: 09/10/2020 Applifier Patient Education 2022 [employer]. Follow Up Care 11/15/2023 15:10:42 With:SIRIA ARMENTA, EVI Nicole Address: [address] [place] [id number] When: Unknown Comments:see me in April, get [place] [facility] late March and a mammogram at [facility] [place] 12-27-2023 Hospital Discharge instructions Patient Education 10/17/2023 15:11:37 Sinus Infection, Adult, Kzlf-se-Wicl Sinus Infection, Adult A sinus infection is [...] saline washes). ?Medicines that treat allergies (antihistamines). ?Weyk-mtr-ckypwum pain relievers. If caused by bacteria, your doctor may wait to see if you will get better without treatment. You may be given antibiotic medicine if you have: ?A very bad infection. ?A weak body defense system. If caused by growths in the nose, surgery may be needed. Follow these instructions at home: Medicines Take, use, or apply ucld-bjr-xouqwey and prescription medicines only as told by [...] cannot use soap and water, use hand tax preparer. Do not smoke. Avoid being around people [...] provider. Document Revised: 09/12/2022 Document Reviewed: 09/12/2022 Applifier Patient Education 2022 [employer] 10/17/2023 15:11:36 BMI for Adults BMI [...] numbers. This can be done either in [place] ([place] or metric measurements. Note that charts and online BMI calculators are available to help you find your BMI quickly and easily without having to do these calculations yourself. To calculate your BMI in [place] ([place] measurements: 1.Measure your weight in pounds [...] Centers for Disease Control and Prevention: www.cdc.gov [place] Heart Association: www.heart.org National Heart, Lung, and Blood [place]: www.nhlbi.nih.gov Summary Body mass index (BMI) is a number that is calculated from a person's weight and height. BMI may help estimate how much of a person's weight is composed of fat. BMI can help identify thosewho may be at higher risk for certain medical problems. BMI can be measured using [place] measurements or metric measurements. BMI charts are used to identify whether you are underweight, normal weight, overweight, or obese. This information is not intended to replace advice given to you by your health care provider. Make sure you discuss any questions you have with your health care provider. Document Revised: 06/30/2020 Document Reviewed: 05/07/2020 Applifier Patient Education 2022 [employer]. Follow Up Care 10/17/2023 10:36:14 With:Mara BEVERLY MD, FAM Address: [address] [place], [place] [id number]- When: Unknown [facility] 07-27-2023 Evaluation + Plan [...] from: Title:Initial consult Hospitalist Author:Roland veras MD, Lcmimahendra Date:05/16/23 Extensor mechanism malalignm ent of knee [...] Ambulatory Surgery Unit, and To home ). [facility]07-24-2023 Hospital Discharge instructions Follow Up Care 05/14/2023 10:03:11 With:Melva Grimaldo Address: [address] [place], [place] [id number] [employer] App (1) When: Unknown Comments:Keep scheduled appointment [facility]06-01-2023 Hospital Discharge instructions Patient Education 03/22/2023 20:43:43 [...] provider. Document Revised: 02/27/2022 Document Reviewed: 02/27/2022 Applifier Patient Education 2022 [employer]. Follow Up Care 09/18/2022 10:47:10 With:Mara BEVERLY MD, FAM Address: [address] [place] [id number]- When:6 months [facility] [place] 11-06-2022 Hospital Discharge instructions Patient [...] 04/22/2012 Document Revised: 10/01/2019 Document Reviewed: 10/01/2019 Applifier Patient Education 2019 [employer]. [facility] [place] 10-22-2022 Hospital Discharge [...] height. This can be done either in [place] ([place] or metric measurements. Note that charts are available to help you find your BMI quickly and easily without having to do these calculations yourself. To calculate your BMI in [place] ([place] measurements, your health care provider will: [...] medical problems. BMI can be measured using [place] measurements or metric measurements. To interpret your [...] 06/19/2005 Document Revised: 09/20/2018 Document Reviewed: 08/21/2018 Applifier Patient Education 2020 [employer]. 08/12/2022 13:36:15 Sinusitis, Adult, Qxyv-sc-Qath Sinusitis, Adult Sinusitis is soreness and swelling [...] at home: Medicines Take, use, or apply nxpz-gbt-zwhyhat and prescription medicines only as told by [...] is no soap and water, use hand tax preparer. Do not smoke. Avoid being around people [...] 03/26/2009 Document Revised: 03/10/2019 Document Reviewed: 03/10/2019 Applifier Patient Education 2020 [employer] Follow Up Care 08/12/2022 11:36:36 With:SIRIA ARMENTA, EVI Nicole Address: [address] [place] [id number] When: Unknown [facility] 07-29-2022 Hospital Discharge instructions Follow Up Care 05/19/2022 10:40:52 With:Isaac ARMENTA, Joe Dunlap Address: When:3 months Comments:Call for sooner apt with new/worsening symptoms [facility]07-05-2022 Hospital Discharge instructions Patient Education 04/25/2022 21:16:41 [...] Follow these instructions at home: Medicines Take zmqz-myy-ubgzrmc and prescription medicines only as told by [...] 07/18/2006 Document Revised: 04/10/2019 Document Reviewed: 04/10/2019 [employer] Patient Education 2020 [employer]. Follow Up Care 04/25/2022 16:19:02 With:SIRIA ARMENTA, EVI Nicole Address: When: only if needed [facility] [place] 05-23-2022 Hospital Discharge instructions Patient Education 03/13/2022 [...] pollution. Aerosol sprays and fumes from household medical field representative. Household pests and their droppings, including dust [...] or starting any new medicines. Medicines Take xeao-nir-ejylurc and prescription medicines only as told by [...] 09/26/2010 Document Revised: 09/20/2018 Document Reviewed: 03/24/2017 Applifier Patient Education 2020 [employer]. Follow Up Care 09/13/2021 10:56:46 With:Mara BEVERLY MD, FAM Address: [address] [place] [address]- When:6 months [facility] Evaluation + Plan note Future Appointments Appointment Date:03/14/2022 10:20:00 AM Scheduled Provider:Mara BEVERLY MD [facility] Appointment Type: Open Future Scheduled Tests Laboratory* TSH With T4fr Reflex 09/13/21 * CBC w/ Auto Diff 09/13/21 * Comprehensive Metabolic Panel 09/13/21 * Lipid Panel 09/13/21 Radiology* MRI Shoulder w/o Contrast Right [facility]ments Appointment Date:08/29/2022 10:20:00 AM Scheduled Provider:Mara BEVERLY MD Location:[facility] [place] Appointment Type: Open Future Scheduled Tests Radiology* MRI Shoulder w/o Contrast Right 09/13/21 [facility] evaluation + Plan note Future Appointments Appointment Date:08/29/2022 10:20:00 AM Scheduled Provider:Mara BEVERLY MD Location:[facility] [place] Appointment Type: Open Future Scheduled Tests Radiology* MRI Shoulder w/o Contrast Right 09/13/21 [facility] Evaluation + Plan note Future Appointments Appointment Date:08/29/2022 10:20:00 AM Scheduled Provider:Mara BEVERLY MD Location:[facility] Appointment Type: Open Future Scheduled Tests Radiology* Echo Transthoracic Complete 05/18/22 * NM Myocardial Spect Rest/Stress 2 Day 05/18/22 * MRI Shoulder w/o Contrast Right [facility] Appointment Date:08/29/2022 10:20:00 AM Scheduled Provider:Mara BEVERLY MD Location:[facility] Appointment Type: Open Appointment Date:09/27/2022 11:45:00 AM Scheduled Provider:Joe Gray MD [facility] Type:Cardiology Follow Up (FT) Future Scheduled Tests Radiology* MRI Shoulder w/o Contrast Right [facility] Appointment Date:08/22/2022 08:30:00 AM Scheduled Provider: [facility] Type:Cardiology Nurse Visit (FT) Appointment Date:08/29/2022 10:20:00 AM Scheduled Provider:Mara BEVERLY MD Location:[facility] Appointment Type: Open Appointment Date:09/27/2022 11:45:00 AM Scheduled Provider:Joe Gray MD [facility] Type:Cardiology Follow Up (FT) Future Scheduled Tests Radiology* MRI Shoulder w/o Contrast Right 09/13/21 [facility] Evaluation + Plan note Future Appointments Appointment Date:09/27/2022 11:45:00 AM Scheduled Provider:Joe Gray MD [facility] Type:Cardiology Follow Up (FT) Future Scheduled Tests Radiology* MRI Shoulder w/o Contrast Right 09/13/21 [facility] Evaluation + Plan note Future Appointments Appointment Date:03/19/2023 09:40:00 AM Scheduled Provider:Mara BEVERLY MD Location:[facility] Appointment Type: Open [facility] Evaluation + Plan note Future Appointments Appointment Date:04/02/2023 07:30:00 AM Scheduled Provider: Location:[facility] Appointment Type:Surgery FT Future Scheduled Tests Laboratory* TSH With T4fr Reflex 03/23/23 * ALT 03/23/23 * AST 03/23/23 * Lipid Panel 03/23/23 [facility] Evaluation + Plan note Future Appointments Appointment Date:04/02/2023 07:30:00 AM Scheduled Provider: Location:[facility] App[facility]ments Appointment Date:05/12/2024 06:40:00 PM Scheduled Provider:Mara BEVERLY MD Location:[facility] Appointment Type: Open Future Scheduled Tests Laboratory* TSH With T4fr Reflex 12/08/23 * Vitamin D 25 Hydroxy 12/10/23 * CBC w/ Auto Diff 12/08/23 * Comprehensive Metabolic Panel 12/08/23 * Lipid Panel 12/08/23 Radiology* MA Mamm Screen w/CAD if perf and 3D Kenji 12/08/23 [facility] Evaluation + Plan note Future Appointments Appointment Date:05/12/2024 06:40:00 PM Scheduled Provider:Mara BEVERLY MD Location:[facility] Appointment Type: Open Appointment Date:05/21/2024 02:15:00 PM Scheduled Provider:Farzad FRANCE MD Location:[facility] Appointment Type:URO New Patient Future Scheduled Tests Laboratory* TSH With T4fr Reflex 12/08/23 * Vitamin D 25 Hydroxy 12/10/23 * CBC w/ Auto Diff 12/08/23 * Comprehensive Metabolic Panel 12/08/23 * Lipid Panel 12/08/23 Radiology* MA Mamm Screen w/CAD if perf and 3D Kenji 12/08/23 [facility] Evaluation + Plan note Future Appointments Appointment Date:05/12/2024 06:40:00 PM Scheduled Provider:Mara BEVERLY MD Location:[facility] Appointment Type: Open Appointment Date:05/21/2024 02:15:00 PM Scheduled Provider:Farzad FRANCE MD Location:[facility] Appointment Type:URO New Patient Future Scheduled Tests Laboratory* HgbA1c 04/14/24 Radiology* MA Mamm Screen w/CAD if perf and 3D Kenji [facility]08[facility] Appointment Date:05/14/2024 12:15:00 PM Scheduled Provider: Location[facility] Appointment Type:MA Screen (FT) Appointment Date:05/14/2024 01:00:00 PM Scheduled Provider: [facility] Type:BD Bone Density (FT) Appointment Date:05/21/2024 02:15:00 PM Scheduled Provider:Farzad FRANCE MD Location:[facility] Appointment Type:URO New Patient Appointment Date:08/19/2024 02:30:00 PM Scheduled Provider: Location:[facility] Appointment Type:FM Medicare Wellness Welcome Appointment Date:08/19/2024 03:40:00 PM Scheduled Provider:Mara BEVERLY MD Location:[facility] Appointment Type: Open Future Scheduled Tests Radiology* BD Bone Density DEXA 05/14/24 * MA Mamm Screen w/CAD if perf and 3D Kenji 05/14/24 [facility] [place] Evaluation + Plan note Future Appointments Appointment Date:05/14/2024 12:15:00 PM Scheduled Provider: Location[facility] Appointment Type:MA Screen (FT) Appointment Date:05/14/2024 01:00:00 PM Scheduled Provider: [facility] Type:BD Bone Density (FT) Appointment Date:05/21/2024 02:15:00 PM Scheduled Provider:Farzad FRANCE MD Location:[facility] Appointment Type:URO New Patient Appointment Date:08/19/2024 02:30:00 PM Scheduled Provider: Location:[facility] Appointment Type:[facility] Appointment Date:08/19/2024 03:40:00 PM Scheduled Provider:Mara BEVERLY MD Location:[facility] Appointment Type: Open Diagnostic Tests Pending * Microalbumin Level Urine 05/12/24 * U Protein/Creat Ratio 05/12/24 Future Scheduled Tests Radiology* BD Bone Density DEXA 05/14/24 * MA Mamm Screen w/CAD if perf and 3D Kenji [facility] Future [facility]ments Appointment Date:05/21/2024 02:15:00 PM Scheduled Provider:Farzad FRANCE MD Location:[facility] Appointment Type:URO New Patient Appointment Date:08/19/2024 02:30:00 PM Scheduled Provider: Location:[facility] [place] Appointment Type: Medicare Wellness Welcome Appointment Date:08/19/2024 03:40:00 PM Scheduled Provider:Mara BEVERLY MD Location[facility] Appointment Type: Open [facility] Evaluation + Plan note Future Appointments Appointment Date:08/20/2025 11:00:00 AM Scheduled Provider: Location:[facility] [place] Appointment Type:FM Medicare Wellness Subsequent [facility] [place] Evaluation + Plan note Future Appointments Appointment Date:03/05/2025 09:00:00 AM Scheduled Provider:Mara BEVERLY MD Location:[facility] Appointment Type: Open Appointment Date:08/20/2025 11:00:00 AM Scheduled Provider: Location:[facility] Appointment Type: Medicare Wellness Subsequent [facility] [place] Evaluation note* Diagnosis Type 2 diabetes mellitus without complication, without long-term current use of insulin ([facility])- Primary Pseudophakia Lens replaced by other means documented in this encounter [facility] HealthcareEvaluation noteNo assessment information availableW[facility] Work Phone: Evaluation note* Diagnosis Artificial knee joint present, left- Primary Acute pain of right knee documented in this encounter [facility] HealthcareEvaluation note* Diagnosis Acute pain of right knee- Primary documented in this encounter [facility] HealthcareHospital course Narrative No data available for this section [facility] No data available for this section [facility] No data available for this section [facility] [place] History of Present Illness * Exten, Carlos [...] From anonsurgical standpoint I would recommend a [place] Shoshone walker. This could be custom fit for her. I would recommend that she try to find a shoe of adequate height to have on the other side in order to minimize discomfort in her back. If she does not have significant relief from the Y[place] Shosh[place] walker I would recommend obtaining a CT scan for presurgical planning and considering fusion of multiple joints in the hindfoot and midfoot including the calcaneocuboid, talonavicular, navicular cuneiform, and possible tarsometatarsal joints. She would need to be nonweightbearing for approximately 12 weeks after surgery. After discussion the patient and her sister both agree that she would like to try nonsurgical treatment first. The Yomba Shoshone walker was ordered. She will have this fitted at [facility] in [place]. She will follow-up after wearing it for several weeks. Levi Sofia was agreeable to the plan and there were no learning barriers encountered. Follow-Up: After wearing the Yomba Shoshone walker for several weeks. X-rays of the [...] swollen. She was seen initially in the [facility] podiatry department. She was first placed in [...] she saw for her foot was a cash processing specialist by the name of Dr. Wakefield in [place]. Overall for the treatment of her foot and ankle she has never been given a custom brace. She does have a pair of three-quarter length hard podiatry style orthotics. These were prescribed by Dr. gonzalez. she has also been given an ASO. Aside from when she was in the cast she was never nonweightbearing. She was told by a cash processing specialist in the past that she has neuropathy. She is not a diabetic. She has noknown causes of neuropathy. 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 She is not a smoker. Past Medical History: Diagnosis Date Disease of thyroid gland Hypertension and Past Surgical History: Procedure Laterality Date ELBOW SURGERY Left 2011 scope FOOT SURGERY Right [address] Gonzalez Past medical, past surgical, family history, medications, allergies, and smoking status reviewed and updated as appropriate in [employer]. A 13-system review of systems was completed [...] Mara Beverly MD documented in this encounter* Carols Carter MD - 03/12/2019 10:50 AM EDT Impression: SNOMED CT(R) 1. Charcot's joint of left foot CHARCOT'S JOINT OF FOOT Plan: The above diagnosis as well as the options for treatment were discussed with Levi in clinic today. At this time we recommend the following: She will remain in the Yomba Shoshone walker and wear the elevated shoe on [...] appointment I recommended that she get a Yomba Shoshone walker. She has that today. She also has an issue with an elevated sole on the contralateral side. She had this done at [facility]. She denies any s ignificant [...] distress. Standing: Patient is ambulating in a Yomba Shoshone walker and shoe with a lift on [...] we. Think about coming out of the Yomba Shoshone walkerand into a diabetic shoe and orthotic. [...] midfoot deformity. She has been using a lower brule walker. She says her pain is significantly improved in the Yomba Shoshone walker. She now is having pain on [...] distress. Standing: Patient is ambulating in a Yomba Shoshone walker and shoe with a lift on [...] Visit Patient Name: Levi Sofia MR #: [id number] : 1960 Physicians: Mara Beverly MD (Family); [...] was in [address] Yanez in [facility]. She has long-standing history of allergy/sinus [...] file Gets together: Not on file Attends anabaptist service: Not on file Active member of [...] try laminated lining. These were fashioned at [employer]. She also does not have relief from [...] were reviewed and updated as appropriate in [facility]. She is not a current tobacco user. [...] 07/13/2020 10:10 AM EDT OFFICE CONSULTATION NOTE [facility] [address] ([address]) [facility] [address] [facility] [phone] Physicians: Mara Beverly MD (Family); Carlos Carter [...] injections for this. She has seen several cash processing specialist and orthopedic surgeons in the past for [...] left foot. Patient was fitted with a Yomba Shoshone walker for the left foot which did [...] Foot Added automatically from request for surgery [id number] Objective: Vitals: BP 140/75 (BP Location: Left [...] following: I recommend she continue in the Yomba Shoshone walker. She will follow-up in 6 months with new repeat x-rays of the left foot. We discussed that after that point time she can either try to get back into regular footwear or shecan continue wearing the Yomba Shoshone walker lifelong. Levi was agreeable to the plan and there were no learning barriers encountered. Follow-Up: Followup 6 months. New xrays will be needed at the next visit. Subjective: Levi Sofia is here for a follow visit in regards to her left charcot midfoot deformity. She has been using a lower brule walker. She says her pain is significantly improved in the Yomba Shoshone walker. Smoking status, allergies, medications, and non-medications were reviewed and updated as appropriate in Epic. She is not a current tobacco user. Exam: Vitals: 09/04/19 0831 BP: 147/84 Pulse: (!) 59 Weight: 129.3 kg (285 lb) Height: 5' 10 The patient is awake, alert and orientated x3, and in no apparent distress. Standing: Patient is ambulating in a Yomba Shoshone walker and shoe with a lift on [...] file Gets together: Not on file Attends anabaptist service: Not on file Active member of [...] or other concerns. She is employed at [employer] and would like to haveCT completed there. [...] Documents on File Type Date Recorded Patient Digital Marketing Officer Expl anation Advance Directives and Livin g Will 03/12/2019 10:07 AM Documents on File Type Date Recorded Patient Digital Marketing Officer Expl anation Advance Directives and Livin g Will 2020 10:32 AM Documents on File Type Date Recorded Patient Digital Marketing Officer Expl anation Advance Directives and Livin g Will 2020 10:32 AM Documents on File Type Date Recorded Patient Digital Marketing Officer Marci dahl Advance Directives and Radames finney [...] call 911, even if you feel better. [id number] if: You have symptoms of a severe [...] Log into your personal health record on [email or web address] and enter W171 in the Education box to learn more about Allergies: Care Instructions. Current as of: July 28, 2019 Content Version: 12.5 3406-9476 [employer]. Care instructions adapted under license by your healthcare professional. If you have questions about a medical condition or this instruction, always ask your healthcare professional. [employer] disclaims any warranty or liability for your use of this information. documented in this encounter Reason for Referral Status Reason Specialty Diagnoses / Procedures Referred By Contact Referred To Contact New Request Radiology Diagnoses Recurrent sinusitis Procedures CT Sinus [address] [place] [address] Specialty Diagnoses / Procedures Referred By Contалександр t Referred To Contact Physical Therapy Diagnoses Acute pain of right knee Artificial knee joint present, left Procedures [place] OFFICE/OUTPATIENT [facility] 60 MINUTES Melva Grimaldo, DO [address] [place] [address] [facility]AUD/SPEECH [address] [address] Referral ID Status Reason Start Date Expiration Date Visits Requested Visits Authorized [id number] Authorized Specialty Services Required 07/10/2024 01/06/2025 1 1 Additional Source Comments Reason for Visit (unrecogniz ed section and content) Reason Comments Pain ANKLE AND FOOT PAIN Pain Reason Comments Follow-up F/U LT CHARCOT FOOT WITH NEUROPATHY-EKWOK WALKER Pain Reason Comments Follow-up LT FOOT CHARCOT FOOT W/ NEUROPATHY Follow-up Reason Comments Acute recurrent frontal sinusitis Status Reason Specialty Diagnoses / Procedures Referred By Contact Referred To Contact Closed Otolaryngology Diagnoses Acute recurrent frontal sinusitis Mara Beverly MD [address] [place] [address] Javier Fischer MD [address] [facility] [address] [place] [address] Status Reason Specialty Diagnoses / Procedures Re ferred By Contact Referred To Contact Diagnoses Charcot's joint of left foot Procedures VR Epidural Steroid Inj-B/L TALONAVICULAR AND CALCANEOCUBOID JOINT INJECTION Senait Ochoa MD [address] [place] [address] Reason Comments PT Initial Evaluation charcot foot Status Reason Specialty Diagnoses / Procedures Referred By Contact Referred To Contact Closed Specialty Services Required/Patie nt's Best Interest Interventional Radiology / Cardiology Diagnoses Charcot's joint of left foot Neuropathy, idiopathic Pain Exten, Carlos Gerber MD [address] [place] [address] Senait Ochoa MD [address] [place] [id number] Reason Comments Follow-up LT CHARCOT FOOT WITH NEUROPATHY -EKWOK WALKER Follow-up Reason Comments Follow-up CT Sinus Review Reason Comments Follow-up 6 week f/u recurrent sinusitis and rhinitis Reason Comments Diabetic Eye Exam Reason Comments Pain INFORMATION SOURCE (unrecogn ized section and content) DATE CREATED AUTHOR 02/07/2019 [facility] DATE CREATED AUTHOR AUTHOR'S ORGANIZ ATION 08/13/2020 [facility] DATE CREATED AUTHOR AUTHOR'S ORGANIZ ATION 08/14/2020 [facility] DATE CREATED AUTHOR AUTHOR'S ORGANIZ ATION 05/09/2022 [facility] DATE CREATED AUTHOR AUTHOR'S ORGANIZ ATION 12/29/2022 [facility] DATE CREATED AUTHOR AUTHOR'S ORGANIZ ATION 03/25/2024 [facility] DATE CREATED AUTHOR AUTHOR'S ORGANIZ ATION 04/15/2024 [facility] DATE CREATED AUTHOR AUTHOR'S ORGANIZ ATION 05/16/2024 [facility] DATE CREATED AUTHOR AUTHOR'S ORGANIZ ATION 08/21/2024 [facility] DATE CREATED AUTHOR AUTHOR'S ORGANIZ ATION 08/23/2024 [facility] Center DATE CREATED AUTHOR AUTHOR'S ORGANIZ ATION 09/05/2024 [facility] DATE CREATED AUTHOR AUTHOR'S ORGANIZ ATION 11/07/2024 Sandip Gomez [facility] DATE CREATED AUTHOR AUTHOR'S ORGANIZ ATION 11/22/2024 [facility] dical Specialists EPIC Assessment & Plan [...] Care Team (unrecognized sect ion and content) Intelligence Research Specialist Relationship Specialty Start Date End Date Mara Beverly MD [address] [place] [phone] PCP - General 03/14/23 Intelligence Research Specialist Relationship Specialty Start Date End Date Mara Beverly MD [address] [place] [phone] PCP - General 03/14/23 Team Status: Inactive Member Role Status Dates Julio Johnson DPM MS Attending Provider Active Start: September 02, 2024 End: September 02, 2024 Intelligence Research Specialist Relationship Specialty Start Date End Date Mara Beverly MD [address] [place] [phone] PCP - General 03/14/23 Intelligence Research Specialist Relationship Specialty Start Date End Date Mara Beverly MD [address] [place] [phone] PCP - General 03/14/23 Intelligence Research Specialist Relationship Specialty Start Date End Date Mara Beverly MD [address] [place] [address] PCP - General 03/14/23 Goals [...] BE BASED ON THE PRIMARY CLINICAL RECORDS. [facility] [employer] provides no warranty or guarantee of the accuracy or completeness of information in this document.
== END 2024-12-17 08:41 | disposition home or self-care (01) ==
LOC: CT 08:40
PROVIDERS: Visit Provider Physician Assistant
DX: M14.671 Charcot's joint, right ankle and foot (principal); M25.471 Effusion, right ankle
CPT/HCPCS: 73700